=== PATIENT | female | born 1960 | race Caucasian/White ===

== ENCOUNTER 2020-06-17 12:39 | Inpatient (IN) | payer OTHER, SELFPAY ==
[2020-06-19 01:56] VITALS: BMI 63.5
[2020-06-20] VITALS (8 sets, daily range): BP systolic 124–138; BP diastolic 76–87; PULSE 61–83; RESP 18; TEMP 35.9–36.2; O2SAT 95; BMI 77.4; BMI 35.1
[2020-06-20] MEDS: amLODIPine Besylate 5 MG TABLET PO (10:42)
[2020-06-20] MEDS: metFORMIN HCl 500 MG TABLET 1500 MG PO ×2 (10:43→16:14)
[2020-06-20] MEDS: Benztropine Mesylate 1 MG TABLET PO ×2 (10:45→20:49)
[2020-06-20] MEDS: clonazePAM 1 MG TABLET PO ×2 (10:45→20:49)
[2020-06-20] MEDS: NaPROXEN 500 MG TABLET PO ×2 (10:45→16:14)
[2020-06-20] MEDS: Aspirin Enteric Coated 81 MG TABLET.DR PO (10:45)
[2020-06-20] MEDS: Gabapentin 300 MG CAPSULE PO ×2 (10:45→20:49)
[2020-06-20] MEDS: Propranolol HCL 20 MG TABLET PO ×3 (11:04→20:56)
[2020-06-20] MEDS: lisinopriL 10 MG TABLET PO (11:05)
[2020-06-20] MEDS: Fluticasone Propionate 100 MCG BLST.W.DEV 1 PUFF INHALE ×2 (11:20→20:52)
--- NOTE | 2020-06-20 16:22 | HO.PSYCHPN ---
Assessment & Plan Assessment & Plan (1) PTSD (post-traumatic stress disorder): Status: Acute Code(s): F43.10 - Post-traumatic stress disorder, unspecified Assessment and Plan: Continue loxapine Liaise with family Greater than 50% of the session was spent on counseling and/or coordination of care Subjective Subjective Date of Service: 06/20/20 Reason For Visit: Ptsd Subjective Notes: Conditional Voluntary Interim History: Mouna has been calmer and she is no longer having any AH. She states that has been more like her normal self. She has been up and about on the unit and she states that she feels safe. Medication Compliance: Yes Side effects from medications: No Attending Groups: Intermittent Mental Status Exam Mental Status Exam Patient Appearance: Well Grooomed Patient Orientation: Person, Place and Time Level of Consciousness: Awake and Appropriate Patient Behavior: Appropriate, Cooperative, Passive, Anxious and Good Eye Contact Mood Description: Anxious and Sad Affect Description: Calm and Apathetic Patient Cognition Impaired: No Ability to Follow Directions: Good Speech Pattern: Clear and Normal for Patient Memory Description: Intact Hallucinations: Auditory (far less) Delusions: Paranoid Ideation Thought Process: Slowed Thinking Thought Content: Goal Oriented and Preoccupation Depressive Symptoms: Increased Anxiety Judgement: Fair Diagnostics Vital Signs (24Hr): Vital Signs - 24 hr 06/20/20 06:41 06/20/20 10:42 06/20/20 11:04 Temperature 96.6 F L Pulse Rate 61 61 61 Respiratory Rate 18 Blood Pressure 124/76 124/76 124/76 Pulse Oximetry 95 06/20/20 11:05 06/20/20 14:19 Temperature Pulse Rate 61 83 Respiratory Rate Blood Pressure 124/76 132/83 Pulse Oximetry Body Mass Index 35.1 Labs Results: 06/16/20 15:40 06/16/20 15:40 Labs: Laboratory Results - last 48 hr 06/16/20 06/16/20 06/17/20 15:22 15:22 07:13 ESR POC Glucose Estimat Average Glucose Hemoglobin A1c Triglycerides Cholesterol LDL Cholesterol, Calc HDL Cholesterol Vitamin B12 Folate Urine Color Cancelled YELLOW Urine Appearance Cancelled CLEAR Urine pH Cancelled 5.5 Ur Specific [place] Cancelled 1.025 Urine Protein Cancelled NEG Urine Glucose (UA) Cancelled NEG Urine Ketones Cancelled NEG Urine Blood Cancelled NEG Urine Nitrite Cancelled NEG Urine WBC (Auto) Cancelled TRACE H Urine RBC 0-2 Urine WBC 5-9 H Ur Epithelial Cells 1+ Urine Bacteria 1+ Urine Mucus 1+ Urine Opiates Screen Cancelled Ur Barbiturates Screen Cancelled Phencyclidine Screen Cancelled Ur Amphetamines Screen Cancelled U Benzodiazepines Scrn Cancelled Urine Cocaine Screen Cancelled U Cannabinoids Screen Cancelled T.pallidum Ab (EIA) Coronavirus (PCR) 06/17/20 06/17/20 06/17/20 07:27 09:13 16:58 ESR POC Glucose 144 H 118 H Estimat Average Glucose Hemoglobin A1c Triglycerides Cholesterol LDL Cholesterol, Calc HDL Cholesterol Vitamin B12 Folate Urine Color Urine Appearance Urine pH Ur Specific [place] Urine Protein Urine Glucose (UA) Urine Ketones Urine Blood Urine Nitrite Urine WBC (Auto) Urine RBC Urine WBC Ur Epithelial Cells Urine Bacteria Urine Mucus Urine Opiates Screen Ur Barbiturates Screen Phencyclidine Screen Ur Amphetamines Screen U Benzodiazepines Scrn Urine Cocaine Screen U Cannabinoids Screen T.pallidum Ab (EIA) Coronavirus (PCR) NEGATIVE 06/18/20 06/18/20 06/19/20 06:44 16:44 06:50 ESR POC Glucose 116 H 127 H 119 H Estimat Average Glucose Hemoglobin A1c Triglycerides Cholesterol LDL Cholesterol, Calc HDL Cholesterol Vitamin B12 Folate Urine Color Urine Appearance Urine pH Ur Specific [place] Urine Protein Urine Glucose (UA) Urine Ketones Urine Blood Urine Nitrite Urine WBC (Auto) Urine RBC Urine WBC Ur Epithelial Cells Urine Bacteria Urine Mucus Urine Opiates Screen Ur Barbiturates Screen Phencyclidine Screen Ur Amphetamines Screen U Benzodiazepines Scrn Urine Cocaine Screen U Cannabinoids Screen T.pallidum Ab (EIA) Coronavirus (PCR) 06/19/20 06/19/20 06/19/20 07:51 07:51 10:05 ESR POC Glucose Estimat Average Glucose 171 Hemoglobin A1c 7.6 Triglycerides 146 Cholesterol 120 LDL Cholesterol, Calc 59 HDL Cholesterol 32 Vitamin B12 397 Folate 13.7 Urine Color Urine Appearance Urine pH Ur Specific [place] Urine Protein Urine Glucose (UA) Urine Ketones Urine Blood Urine Nitrite Urine WBC (Auto) Urine RBC Urine WBC Ur Epithelial Cells Urine Bacteria Urine Mucus Urine Opiates Screen Ur Barbiturates Screen Phencyclidine Screen Ur Amphetamines Screen U Benzodiazepines Scrn Urine Cocaine Screen U Cannabinoids Screen T.pallidum Ab (EIA) Coronavirus (PCR) 06/19/20 06/19/20 06/19/20 10:05 10:05 16:50 ESR 25 H POC Glucose 147 H Estimat Average Glucose Hemoglobin A1c Triglycerides Cholesterol LDL Cholesterol, Calc HDL Cholesterol Vitamin B12 Folate Urine Color Urine Appearance Urine pH Ur Specific [place] Urine Protein Urine Glucose (UA) Urine Ketones Urine Blood Urine Nitrite Urine WBC (Auto) Urine RBC Urine WBC Ur Epithelial Cells Urine Bacteria Urine Mucus Urine Opiates Screen Ur Barbiturates Screen Phencyclidine Screen Ur Amphetamines Screen U Benzodiazepines Scrn Urine Cocaine Screen U Cannabinoids Screen T.pallidum Ab (EIA) Nonreactive Coronavirus (PCR) Medications Medications Ambulatory Orders Medication Instructions Recorded amlodipine 5 mg PO DAILY 06/19/20 aspirin 81 mg PO DAILY 06/19/20 atorvastatin 10 mg PO BEDTIME 06/19/20 benztropine 1 mg PO BID 06/19/20 clonazepam 0.5 mg PO DAILY PRN MDD 2.5 06/19/20 clonazepam 1 mg PO BID 06/19/20 darifenacin 7.5 mg PO DAILY 06/19/20 fluticasone propionate 1 puff INHALATION BID 06/19/20 gabapentin 300 mg PO BID 06/19/20 lisinopril 10 mg PO DAILY 06/19/20 loxapine succinate 5 mg PO BEDTIME 06/19/20 loxapine succinate 10 mg PO BID 06/19/20 meclizine 25 mg PO DAILY PRN 06/19/20 metformin 1,500 mg PO BIDWM 06/19/20 propranolol 20 mg PO TID 06/19/20 Allergies Allergies Allergy/AdvReac Type Severity Reaction Status Date / Time haloperidol [HALOPERIDOL] Allergy Intermediate SWELLING Unverified 06/06/20 14:55 carbamazepine [From Tegretol] Allergy Mild RASH, Unverified 06/06/20 14:55 TREMORS lithium [[place]] Allergy Mild RASH, Unverified 06/06/20 14:55 CRAWLING OUT OF SKIN olanzapine [From Zyprexa] Allergy Mild RICHARD Unverified 06/06/20 14:55 quetiapine [From Seroquel] Allergy Mild SWELLING Unverified 06/06/20 14:55 WHOLE BODY, RICHARD lisinopril [LISINOPRIL] Allergy Unknown UNKNOWN Unverified 06/06/20 14:55 topiramate [From TOPAMAX] Allergy Unknown RICHARD, SI Unverified 06/06/20 14:55 trazodone [TRAZODONE] Allergy Unknown SYNCOPE Unverified 06/06/20 14:55 aripiprazole [From ABILIFY] AdvReac Severe EXTREME SI Unverified 06/06/20 14:55 lamotrigine [From Lamictal] AdvReac Mild RICHARD Unverified 06/06/20 14:55 modafinil [From Provigil] AdvReac Mild RICHARD Unverified 06/06/20 14:55 ALL ANTI DEPRESSENTS Allergy Unknown I GO Uncoded 06/06/20 14:55 MANIC All anti-depressants Allergy Unknown manic, rash Uncoded 05/02/20 00:00 From GEODON Allergy Unknown LETHARGY Uncoded 06/06/20 14:55 From WELLBUTRIN AdvReac Unknown AGITATION, Uncoded 06/06/20 14:55 MAVIS
--- NOTE | 2020-06-20 16:56 | HO.PSYCHPN ---
Assessment & Plan Assessment & Plan (1) Auditory hallucinations: Status: Acute Code(s): R44.0 - Auditory hallucinations Assessment and Plan: Continue medications without change. Liaise with outpatient providers Greater than 50% of the session was spent on counseling and/or coordination of care Subjective Subjective Date of Service: 06/20/20 Reason For Visit: Ptsd Subjective Notes: Conditional Voluntary and 3 Day Interim History: Stan had submitted a three day notice which today. His parents have communicate to that they are concerned about his impulsivity, his irritability and his anger Diagnostics Vital Signs (24Hr): Vital Signs - 24 hr 06/20/20 06:41 06/20/20 10:42 06/20/20 11:04 Temperature 96.6 F L Pulse Rate 61 61 61 Respiratory Rate 18 Blood Pressure 124/76 124/76 124/76 Pulse Oximetry 95 06/20/20 11:05 06/20/20 14:19 06/20/20 16:51 Temperature 97.1 F Pulse Rate 61 83 77 Respiratory Rate Blood Pressure 124/76 132/83 126/83 Pulse Oximetry 06/20/20 16:52 Temperature 97.1 F Pulse Rate 77 Respiratory Rate Blood Pressure 126/83 Pulse Oximetry Body Mass Index 35.1 Labs Results: 06/16/20 15:40 06/16/20 15:40 Labs: Laboratory Results - last 48 hr 06/16/20 06/16/20 06/17/20 15:22 15:22 07:13 ESR POC Glucose Estimat Average Glucose Hemoglobin A1c Triglycerides Cholesterol LDL Cholesterol, Calc HDL Cholesterol Vitamin B12 Folate Urine Color Cancelled YELLOW Urine Appearance Cancelled CLEAR Urine pH Cancelled 5.5 Ur Specific [place] Cancelled 1.025 Urine Protein Cancelled NEG Urine Glucose (UA) Cancelled NEG Urine Ketones Cancelled NEG Urine Blood Cancelled NEG Urine Nitrite Cancelled NEG Urine WBC (Auto) Cancelled TRACE H Urine RBC 0-2 Urine WBC 5-9 H Ur Epithelial Cells 1+ Urine Bacteria 1+ Urine Mucus 1+ Urine Opiates Screen Cancelled Ur Barbiturates Screen Cancelled Phencyclidine Screen Cancelled Ur Amphetamines Screen Cancelled U Benzodiazepines Scrn Cancelled Urine Cocaine Screen Cancelled U Cannabinoids Screen Cancelled T.pallidum Ab (EIA) Coronavirus (PCR) 06/17/20 06/17/20 06/17/20 07:27 09:13 16:58 ESR POC Glucose 144 H 118 H Estimat Average Glucose Hemoglobin A1c Triglycerides Cholesterol LDL Cholesterol, Calc HDL Cholesterol Vitamin B12 Folate Urine Color Urine Appearance Urine pH Ur Specific [place] Urine Protein Urine Glucose (UA) Urine Ketones Urine Blood Urine Nitrite Urine WBC (Auto) Urine RBC Urine WBC Ur Epithelial Cells Urine Bacteria Urine Mucus Urine Opiates Screen Ur Barbiturates Screen Phencyclidine Screen Ur Amphetamines Screen U Benzodiazepines Scrn Urine Cocaine Screen U Cannabinoids Screen T.pallidum Ab (EIA) Coronavirus (PCR) NEGATIVE 06/18/20 06/18/20 06/19/20 06:44 16:44 06:50 ESR POC Glucose 116 H 127 H 119 H Estimat Average Glucose Hemoglobin A1c Triglycerides Cholesterol LDL Cholesterol, Calc HDL Cholesterol Vitamin B12 Folate Urine Color Urine Appearance Urine pH Ur Specific [place] Urine Protein Urine Glucose (UA) Urine Ketones Urine Blood Urine Nitrite Urine WBC (Auto) Urine RBC Urine WBC Ur Epithelial Cells Urine Bacteria Urine Mucus Urine Opiates Screen Ur Barbiturates Screen Phencyclidine Screen Ur Amphetamines Screen U Benzodiazepines Scrn Urine Cocaine Screen U Cannabinoids Screen T.pallidum Ab (EIA) Coronavirus (PCR) 06/19/20 06/19/20 06/19/20 07:51 07:51 10:05 ESR POC Glucose Estimat Average Glucose 171 Hemoglobin A1c 7.6 Triglycerides 146 Cholesterol 120 LDL Cholesterol, Calc 59 HDL Cholesterol 32 Vitamin B12 397 Folate 13.7 Urine Color Urine Appearance Urine pH Ur Specific [place] Urine Protein Urine Glucose (UA) Urine Ketones Urine Blood Urine Nitrite Urine WBC (Auto) Urine RBC Urine WBC Ur Epithelial Cells Urine Bacteria Urine Mucus Urine Opiates Screen Ur Barbiturates Screen Phencyclidine Screen Ur Amphetamines Screen U Benzodiazepines Scrn Urine Cocaine Screen U Cannabinoids Screen T.pallidum Ab (EIA) Coronavirus (PCR) 06/19/20 06/19/20 06/19/20 10:05 10:05 16:50 ESR 25 H POC Glucose 147 H Estimat Average Glucose Hemoglobin A1c Triglycerides Cholesterol LDL Cholesterol, Calc HDL Cholesterol Vitamin B12 Folate Urine Color Urine Appearance Urine pH Ur Specific [place] Urine Protein Urine Glucose (UA) Urine Ketones Urine Blood Urine Nitrite Urine WBC (Auto) Urine RBC Urine WBC Ur Epithelial Cells Urine Bacteria Urine Mucus Urine Opiates Screen Ur Barbiturates Screen Phencyclidine Screen Ur Amphetamines Screen U Benzodiazepines Scrn Urine Cocaine Screen U Cannabinoids Screen T.pallidum Ab (EIA) Nonreactive Coronavirus (PCR) Medications Medications Ambulatory Orders Medication Instructions Recorded amlodipine 5 mg PO DAILY 06/19/20 aspirin 81 mg PO DAILY 06/19/20 atorvastatin 10 mg PO BEDTIME 06/19/20 benztropine 1 mg PO BID 06/19/20 clonazepam 0.5 mg PO DAILY PRN MDD 2.5 06/19/20 clonazepam 1 mg PO BID 06/19/20 darifenacin 7.5 mg PO DAILY 06/19/20 fluticasone propionate 1 puff INHALATION BID 06/19/20 gabapentin 300 mg PO BID 06/19/20 lisinopril 10 mg PO DAILY 06/19/20 loxapine succinate 5 mg PO BEDTIME 06/19/20 loxapine succinate 10 mg PO BID 06/19/20 meclizine 25 mg PO DAILY PRN 06/19/20 metformin 1,500 mg PO BIDWM 06/19/20 propranolol 20 mg PO TID 06/19/20 Allergies Allergies Allergy/AdvReac Type Severity Reaction Status Date / Time haloperidol [HALOPERIDOL] Allergy Intermediate SWELLING Unverified 06/06/20 14:55 carbamazepine [From Tegretol] Allergy Mild RASH, Unverified 06/06/20 14:55 TREMORS lithium [[place]] Allergy Mild RASH, Unverified 06/06/20 14:55 CRAWLING OUT OF SKIN olanzapine [From Zyprexa] Allergy Mild RICHARD Unverified 06/06/20 14:55 quetiapine [From Seroquel] Allergy Mild SWELLING Unverified 06/06/20 14:55 WHOLE BODY, RICHARD lisinopril [LISINOPRIL] Allergy Unknown UNKNOWN Unverified 06/06/20 14:55 topiramate [From TOPAMAX] Allergy Unknown RICHARD, SI Unverified 06/06/20 14:55 trazodone [TRAZODONE] Allergy Unknown SYNCOPE Unverified 06/06/20 14:55 aripiprazole [From ABILIFY] AdvReac Severe EXTREME SI Unverified 06/06/20 14:55 lamotrigine [From Lamictal] AdvReac Mild RICHARD Unverified 06/06/20 14:55 modafinil [From Provigil] AdvReac Mild RICHARD Unverified 06/06/20 14:55 ALL ANTI DEPRESSENTS Allergy Unknown I GO Uncoded 06/06/20 14:55 MANIC All anti-depressants Allergy Unknown manic, rash Uncoded 05/02/20 00:00 From GEODON Allergy Unknown LETHARGY Uncoded 06/06/20 14:55 From WELLBUTRIN AdvReac Unknown AGITATION, Uncoded 06/06/20 14:55 MAVIS
[2020-06-20 17:53] LABS: Glucose, Whole Blood 139 mg/dL (60-115)
[2020-06-20] MEDS: Atorvastatin Calcium 10 MG TABLET PO (20:49)
[2020-06-21 06:15] VITALS: BP 120/72; PULSE 66; RESP 18; TEMP 35.6; O2SAT 97
[2020-06-21 06:25] LABS: Glucose, Whole Blood 126 mg/dL (60-115)
[2020-06-21] MEDS: Fluticasone Propionate 100 MCG BLST.W.DEV 1 PUFF INHALE ×2 (08:55→20:29)
[2020-06-21] MEDS: Gabapentin 300 MG CAPSULE PO ×2 (08:58→20:28)
[2020-06-21] MEDS: Aspirin Enteric Coated 81 MG TABLET.DR PO (08:58)
[2020-06-21] MEDS: metFORMIN HCl 500 MG TABLET 1500 MG PO ×2 (08:59→20:25)
[2020-06-21] MEDS: NaPROXEN 500 MG TABLET PO ×2 (08:59→20:26)
[2020-06-21] MEDS: clonazePAM 1 MG TABLET PO ×2 (08:59→20:28)
[2020-06-21 09:00] VITALS: BP 120/72; PULSE 66
[2020-06-21] MEDS: lisinopriL 10 MG TABLET PO (09:00)
[2020-06-21] MEDS: amLODIPine Besylate 5 MG TABLET PO (09:00)
[2020-06-21] MEDS: Benztropine Mesylate 1 MG TABLET PO ×2 (09:01→20:27)
[2020-06-21 09:21] VITALS: BP 120/72; PULSE 66
[2020-06-21] MEDS: Propranolol HCL 20 MG TABLET PO ×3 (09:21→20:34)
--- NOTE | 2020-06-21 09:31 | PM.PSYDC ---
DS: Providers Provider Date of admission: 06/17/20 12:39 Primary care physician: Kira Craven MD Attending physician on admission: Jacque Ovalle Attending physician on discharge: Jacque Ovalle DS: Diagnosis Discharge Diagnosis (1) Auditory hallucinations: Status: Acute Discharge Plan Discharge Discharge Medications: No Action amlodipine 5 mg Tablet 5 mg PO DAILY RF: 0 aspirin 81 mg Capsule,Delayed Release(Dr/Ec) 81 mg PO DAILY RF: 0 atorvastatin 10 mg Tablet 10 mg PO BEDTIME RF: 0 benztropine 1 mg Tablet 1 mg PO BID RF: 0 clonazepam 0.5 mg Tablet 0.5 mg PO DAILY MDD 2.5 PRN (Reason: Anxiety) RF: 0 clonazepam 1 mg Tablet 1 mg PO BID RF: 0 fluticasone propionate 110 mcg/actuation Hfa Aerosol Inhaler 1 puff INHALATION BID RF: 0 gabapentin 300 mg Capsule 300 mg PO BID RF: 0 lisinopril 10 mg Tablet 10 mg PO DAILY RF: 0 meclizine 25 mg Tablet 25 mg PO DAILY PRN (Reason: Dizziness) RF: 0 metformin 1,000 mg Tablet 1,500 mg PO BIDWM RF: 0 loxapine succinate 5 mg Capsule 5 mg PO BEDTIME RF: 0 loxapine succinate 10 mg Capsule 10 mg PO BID RF: 0 propranolol 20 mg Tablet 20 mg PO TID RF: 0 darifenacin 7.5 mg Tablet Extended Release 24 Hr 7.5 mg PO DAILY RF: 0
[2020-06-21 11:55] LABS: Creatinine Clr Calc Pharmacy 81.7; Estimated Glomerular Filt Rate > 60
--- NOTE | 2020-06-21 13:19 | PC.NURSE ---
Pt participated on [facility] screen on this date, scored 08/19, indicating cognition is below normal limits, indicative of dementia.
[2020-06-21 13:38] VITALS: BP 123/70; PULSE 76
[2020-06-21 17:14] LABS: Glucose, Whole Blood 149 mg/dL (60-115)
[2020-06-21 18:00] VITALS: BP 141/79; PULSE 79; TEMP 36.6
--- NOTE | 2020-06-21 18:49 | P.PNPSI_ITS ---
Assessment & Plan Assessment & Plan (1) Auditory hallucinations: Status: Acute Code(s): R44.0 - Auditory hallucinations Assessment and Plan: Continue loxapine (2) Cognitive impairment: Status: Acute Code(s): R41.89 - Other symptoms and signs involving cognitive functions and awareness Assessment and Plan: MRI of brain Neurology consult Greater than 50% of the session was spent on counseling and/or coordination of care Patient educated on: diagnosis and medication risk/benefits Informed Consent: does not understand Reason for contiued inpatient stay Substantial Risk for: inability to function and rapid decompensation Subjective Subjective Date of Service: 06/21/20 Reason For Visit: Ptsd Subjective Notes: Conditional Voluntary Interim History: Mouna has been calm and cooperative. She does appear to be somewhat confused, and indeed she scored 11/[address] Her [address] scan of the head was WNL, but will get MRI and neurology consult. She is taking medications as prescribed. Medication Compliance: Yes Side effects from medications: No Attending Groups: Yes Review of Systems Acute medical concerns: No Medical Review of Systems: unchanged Mental Status Exam Mental Status Exam Patient Appearance: Disheveled Patient Orientation: Person and Place Level of Consciousness: Appropriate Patient Behavior: Dependent, Normal for Patient, Suspicious and Distractible Mood Description: Apathetic and Flat Affect Description: Flat Patient Cognition Impaired: No Ability to Follow Directions: Fair Speech Pattern: Monotone, Rambling and Cofabulation Memory Description: Remote Impaired, Immediate Impaired and Working Impaired Hallucinations: Auditory Delusions: Not Present Thought Process: Illogical, Distracted and Slowed Thinking Thought Content: positive for Disoriented and positive for Poverty of Content Depressive Symptoms: Increased Anxiety Judgement: Poor Judgement and Insight: Little awareness of her impairments Diagnostics Vital Signs (24Hr): Vital Signs - 24 hr 06/20/20 20:56 06/21/20 06:15 06/21/20 09:00 Temperature 96.1 F L Pulse Rate 75 66 66 Respiratory Rate 18 Blood Pressure 138/87 120/72 120/72 Pulse Oximetry 97 06/21/20 09:21 06/21/20 13:38 Temperature Pulse Rate 66 76 Respiratory Rate Blood Pressure 120/72 123/70 Pulse Oximetry Body Mass Index 35.1 Labs Results: 06/16/20 15:40 06/21/20 10:43 Labs: Laboratory Results - last 48 hr 06/16/20 06/16/20 06/17/20 15:22 15:22 07:13 ESR Creatinine Estim Creat Clear Calc Estimated GFR POC Glucose Estimat Average Glucose Hemoglobin A1c Triglycerides Cholesterol LDL Cholesterol, Calc HDL Cholesterol Vitamin B12 Folate Urine Color Cancelled YELLOW Urine Appearance Cancelled CLEAR Urine pH Cancelled 5.5 Ur Specific [place] Cancelled 1.025 Urine Protein Cancelled NEG Urine Glucose (UA) Cancelled NEG Urine Ketones Cancelled NEG Urine Blood Cancelled NEG Urine Nitrite Cancelled NEG Urine WBC (Auto) Cancelled TRACE H Urine RBC 0-2 Urine WBC 5-9 H Ur Epithelial Cells 1+ Urine Bacteria 1+ Urine Mucus 1+ Urine Opiates Screen Cancelled Ur Barbiturates Screen Cancelled Phencyclidine Screen Cancelled Ur Amphetamines Screen Cancelled U Benzodiazepines Scrn Cancelled Urine Cocaine Screen Cancelled U Cannabinoids Screen Cancelled T.pallidum Ab (EIA) Coronavirus (PCR) 06/17/20 06/17/20 06/17/20 07:27 09:13 16:58 ESR Creatinine Estim Creat Clear Calc Estimated GFR POC Glucose 144 H 118 H Estimat Average Glucose Hemoglobin A1c Triglycerides Cholesterol LDL Cholesterol, Calc HDL Cholesterol Vitamin B12 Folate Urine Color Urine Appearance Urine pH Ur Specific [place] Urine Protein Urine Glucose (UA) Urine Ketones Urine Blood Urine Nitrite Urine WBC (Auto) Urine RBC Urine WBC Ur Epithelial Cells Urine Bacteria Urine Mucus Urine Opiates Screen Ur Barbiturates Screen Phencyclidine Screen Ur Amphetamines Screen U Benzodiazepines Scrn Urine Cocaine Screen U Cannabinoids Screen T.pallidum Ab (EIA) Coronavirus (PCR) NEGATIVE 06/18/20 06/18/20 06/19/20 06:44 16:44 06:50 ESR Creatinine Estim Creat Clear Calc Estimated GFR POC Glucose 116 H 127 H 119 H Estimat Average Glucose Hemoglobin A1c Triglycerides Cholesterol LDL Cholesterol, Calc HDL Cholesterol Vitamin B12 Folate Urine Color Urine Appearance Urine pH Ur Specific [place] Urine Protein Urine Glucose (UA) Urine Ketones Urine Blood Urine Nitrite Urine WBC (Auto) Urine RBC Urine WBC Ur Epithelial Cells Urine Bacteria Urine Mucus Urine Opiates Screen Ur Barbiturates Screen Phencyclidine Screen Ur Amphetamines Screen U Benzodiazepines Scrn Urine Cocaine Screen U Cannabinoids Screen T.pallidum Ab (EIA) Coronavirus (PCR) 06/19/20 06/19/20 06/19/20 07:51 07:51 10:05 ESR Creatinine Estim Creat Clear Calc Estimated GFR POC Glucose Estimat Average Glucose 171 Hemoglobin A1c 7.6 Triglycerides 146 Cholesterol 120 LDL Cholesterol, Calc 59 HDL Cholesterol 32 Vitamin B12 397 Folate 13.7 Urine Color Urine Appearance Urine pH Ur Specific [place] Urine Protein Urine Glucose (UA) Urine Ketones Urine Blood Urine Nitrite Urine WBC (Auto) Urine RBC Urine WBC Ur Epithelial Cells Urine Bacteria Urine Mucus Urine Opiates Screen Ur Barbiturates Screen Phencyclidine Screen Ur Amphetamines Screen U Benzodiazepines Scrn Urine Cocaine Screen U Cannabinoids Screen T.pallidum Ab (EIA) Coronavirus (PCR) 06/19/20 06/19/20 06/19/20 10:05 10:05 16:50 ESR 25 H Creatinine Estim Creat Clear Calc Estimated GFR POC Glucose 147 H Estimat Average Glucose Hemoglobin A1c Triglycerides Cholesterol LDL Cholesterol, Calc HDL Cholesterol Vitamin B12 Folate Urine Color Urine Appearance Urine pH Ur Specific [place] Urine Protein Urine Glucose (UA) Urine Ketones Urine Blood Urine Nitrite Urine WBC (Auto) Urine RBC Urine WBC Ur Epithelial Cells Urine Bacteria Urine Mucus Urine Opiates Screen Ur Barbiturates Screen Phencyclidine Screen Ur Amphetamines Screen U Benzodiazepines Scrn Urine Cocaine Screen U Cannabinoids Screen T.pallidum Ab (EIA) Nonreactive Coronavirus (PCR) 06/20/20 06/21/20 06/21/20 17:49 06:21 10:43 ESR Creatinine 0.75 Estim Creat Clear Calc 81.7 Estimated GFR > 60 POC Glucose 139 H 126 H Estimat Average Glucose Hemoglobin A1c Triglycerides Cholesterol LDL Cholesterol, Calc HDL Cholesterol Vitamin B12 Folate Urine Color Urine Appearance Urine pH Ur Specific [place] Urine Protein Urine Glucose (UA) Urine Ketones Urine Blood Urine Nitrite Urine WBC (Auto) Urine RBC Urine WBC Ur Epithelial Cells Urine Bacteria Urine Mucus Urine Opiates Screen Ur Barbiturates Screen Phencyclidine Screen Ur Amphetamines Screen U Benzodiazepines Scrn Urine Cocaine Screen U Cannabinoids Screen T.pallidum Ab (EIA) Coronavirus (PCR) 06/21/20 17:03 ESR Creatinine Estim Creat Clear Calc Estimated GFR POC Glucose 149 H Estimat Average Glucose Hemoglobin A1c Triglycerides Cholesterol LDL Cholesterol, Calc HDL Cholesterol Vitamin B12 Folate Urine Color Urine Appearance Urine pH Ur Specific [place] Urine Protein Urine Glucose (UA) Urine Ketones Urine Blood Urine Nitrite Urine WBC (Auto) Urine RBC Urine WBC Ur Epithelial Cells Urine Bacteria Urine Mucus Urine Opiates Screen Ur Barbiturates Screen Phencyclidine Screen Ur Amphetamines Screen U Benzodiazepines Scrn Urine Cocaine Screen U Cannabinoids Screen T.pallidum Ab (EIA) Coronavirus (PCR) Medications Medications Current Medications Generic Name Dose Route Start Last Admin Trade Name Freq PRN Reason Stop Dose Admin Acetaminophen 650 mg 06/20/20 00:01 Acetaminophen 325 Mg Tablet PO Q6H PRN HEADACHE/PAIN.MILD (SCALE 1-3) Al Hydroxide/Mg Hydroxide 30 ml 06/20/20 00:01 Magnesium Hydrox/Alum Hydrox 30 Ml Oral.Susp PO Q6H PRN HEARTBURN/NAUSEA Amlodipine Besylate 5 mg 06/20/20 09:00 06/21/20 09:00 Amlodipine Besylate 5 Mg Tablet PO 5 mg DAILY TARYN Administration Aspirin 81 mg 06/20/20 09:00 06/21/20 08:58 Aspirin Enteric Coated 81 Mg Tablet.Dr PO 81 mg DAILY TARYN Administration Atorvastatin Calcium 10 mg 06/20/20 21:00 06/20/20 20:49 Atorvastatin Calcium 10 Mg Tablet PO 10 mg BEDTIME TARYN Administration Benztropine Mesylate 1 mg 06/20/20 08:30 06/21/20 09:01 Benztropine Mesylate 1 Mg Tablet PO 1 mg BID@0830,2099 TARYN Administration Clonazepam 1 mg 06/20/20 08:30 06/21/20 08:59 Clonazepam 1 Mg Tablet PO 1 mg BID@0830,2100 TARYN Administration Clonazepam 0.5 mg 06/20/20 00:01 Clonazepam 0.5 Mg Tablet PO DAILY PRN Anxiety Fluticasone Propionate 1 puff 06/20/20 08:00 06/21/20 08:55 Fluticasone Propionate 100 Mcg Blst.W.Dev INHALE 1 puff RBID TARYN Administration Gabapentin 300 mg 06/20/20 08:30 06/21/20 08:58 Gabapentin 300 Mg Capsule PO 300 mg BID@0830,2100 TARYN Administration Hydroxyzine HCl 25 mg 06/20/20 21:00 Hydroxyzine Hcl 25 Mg Tablet PO BEDTIME MRX1 PRN NIGHT TIME ANXIETY Lisinopril 10 mg 06/20/20 09:00 06/21/20 09:00 Lisinopril 10 Mg Tablet PO 10 mg DAILY TARYN Administration Magnesium Hydroxide 30 ml 06/20/20 00:01 Milk Of Magnesia 30 Ml Oral.Susp PO Q24H PRN Constipation Meclizine HCl 25 mg 10/01/20 00:01 Meclizine Hcl 25 Mg Tablet PO DAILY PRN DIZZINESS Metformin HCl 1,500 mg 06/20/20 08:00 06/21/20 08:59 Metformin Hcl 500 Mg Tablet PO 1,500 mg BIDWM TARYN Administration Naproxen 500 mg 06/20/20 08:00 06/21/20 08:59 Naproxen 500 Mg Tablet PO 500 mg BIDWM TARYN Administration Patient Own 1 each 06/20/20 09:00 06/21/20 08:57 Medication ( PO 1 each Loxapine 10 Mg ) BID TARYN Administration Patient Own 1 each 06/20/20 21:00 06/20/20 20:51 Medication ( PO 1 each Loxapine 5 Mg) BEDTIME TARYN Administration Patient Own 1 each 06/20/20 09:00 06/21/20 08:58 Medication ( PO 1 each Darifenacin Er 7.5 DAILY TARYN Administration Mg ) Propranolol HCl 20 mg 06/21/20 13:30 06/21/20 13:38 Propranolol Hcl 20 Mg Tablet PO 20 mg TID@0830,1330,2100 TARYN Administration Allergies Allergies Allergy/AdvReac Type Severity Reaction Status Date / Time haloperidol [HALOPERIDOL] Allergy Intermediate SWELLING Unverified 06/06/20 14:55 carbamazepine [From Tegretol] Allergy Mild RASH, Unverified 06/06/20 14:55 TREMORS lithium [[place]] Allergy Mild RASH, Unverified 06/06/20 14:55 CRAWLING OUT OF SKIN olanzapine [From Zyprexa] Allergy Mild RICHARD Unverified 06/06/20 14:55 quetiapine [From Seroquel] Allergy Mild SWELLING Unverified 06/06/20 14:55 WHOLE BODY, RICHARD lisinopril [LISINOPRIL] Allergy Unknown UNKNOWN Unverified 06/06/20 14:55 topiramate [From TOPAMAX] Allergy Unknown RICHARD, SI Unverified 06/06/20 14:55 trazodone [TRAZODONE] Allergy Unknown SYNCOPE Unverified 06/06/20 14:55 aripiprazole [From ABILIFY] AdvReac Severe EXTREME SI Unverified 06/06/20 14:55 lamotrigine [From Lamictal] AdvReac Mild RICHARD Unverified 06/06/20 14:55 modafinil [From Provigil] AdvReac Mild RICHARD Unverified 06/06/20 14:55 ALL ANTI DEPRESSENTS Allergy Unknown I GO Uncoded 06/06/20 14:55 MANIC All anti-depressants Allergy Unknown manic, rash Uncoded 05/02/20 00:00 From GEODON Allergy Unknown LETHARGY Uncoded 06/06/20 14:55 From WELLBUTRIN AdvReac Unknown AGITATION, Uncoded 06/06/20 14:55 MAVIS
--- NOTE | 2020-06-21 19:47 | MR_ITS ---
MRI OF THE BRAIN WITHOUT IV CONTRAST INDICATION: Cognitive decline. COMPARISON: Head CT 06/16/2020. TECHNIQUE: Multiplanar multisequence MR imaging of the brain was obtained without IV contrast. FINDINGS: There is no hydrocephalus, extra-axial surface collection, or herniation. There is mild chronic microangiopathy. The major flow voids at the skull base are preserved. There is no acute infarct on diffusion-weighted imaging. There is no intracranial hemorrhage on the gradient recalled echo acquisition. The midline structures are normal. The cerebellar tonsils are normally positioned. The cerebellum and brainstem are normal. The craniocervical junction is normal. Osseous marrow signal intensity is homogenous. The visualized soft tissues are unremarkable. IMPRESSION: - No acute intracranial findings. - There is global cerebral volume loss and there is mild chronic microangiopathy.
[2020-06-21] MEDS: Atorvastatin Calcium 10 MG TABLET PO (20:27)
[2020-06-21 20:34] VITALS: BP 141/79; PULSE 73
[2020-06-22] VITALS (7 sets, daily range): BP systolic 123–137; BP diastolic 70–88; PULSE 62–91; RESP 16; TEMP 36.3–36.6
[2020-06-22 06:41] LABS: Glucose, Whole Blood 100 mg/dL (60-115)
[2020-06-22] MEDS: Gabapentin 300 MG CAPSULE PO ×2 (08:35→20:56)
[2020-06-22] MEDS: metFORMIN HCl 500 MG TABLET 1500 MG PO ×2 (08:35→17:13)
[2020-06-22] MEDS: amLODIPine Besylate 5 MG TABLET PO (08:36)
[2020-06-22] MEDS: Benztropine Mesylate 1 MG TABLET PO (08:36)
[2020-06-22] MEDS: Aspirin Enteric Coated 81 MG TABLET.DR PO (08:36)
[2020-06-22] MEDS: clonazePAM 1 MG TABLET PO (08:37)
[2020-06-22] MEDS: lisinopriL 10 MG TABLET PO (08:38)
[2020-06-22] MEDS: NaPROXEN 500 MG TABLET PO ×2 (08:47→17:13)
[2020-06-22] MEDS: Fluticasone Propionate 100 MCG BLST.W.DEV 1 PUFF INHALE ×2 (08:50→20:54)
[2020-06-22] MEDS: Propranolol HCL 20 MG TABLET PO ×3 (09:11→21:24)
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
[2020-06-22 17:14] LABS: Glucose, Whole Blood 158 mg/dL (60-115)
[2020-06-22] MEDS: Atorvastatin Calcium 10 MG TABLET PO (20:56)
[2020-06-22] MEDS: Benztropine Mesylate 1 MG TABLET 0.5 MG PO (20:57)
[2020-06-22] MEDS: clonazePAM 1 MG TABLET 0.5 MG PO (21:00)
[2020-06-22] MEDS: clonazePAM 0.5 MG TABLET PO (21:25)
[2020-06-22 23:06] LABS: Glucose, Whole Blood 151 mg/dL (60-115)
[2020-06-23 06:00] VITALS: BP 135/73; PULSE 63; RESP 18; TEMP 35.6; O2SAT 95
[2020-06-23 06:32] LABS: Glucose, Whole Blood 142 mg/dL (60-115)
[2020-06-23 09:18] VITALS: BP 135/73; PULSE 63
[2020-06-23] MEDS: amLODIPine Besylate 5 MG TABLET PO (09:18)
[2020-06-23] MEDS: Gabapentin 300 MG CAPSULE PO ×2 (09:18→20:44)
[2020-06-23] MEDS: lisinopriL 10 MG TABLET PO (09:18)
[2020-06-23] MEDS: metFORMIN HCl 500 MG TABLET 1500 MG PO ×2 (09:18→17:12)
[2020-06-23] MEDS: Benztropine Mesylate 1 MG TABLET 0.5 MG PO ×2 (09:18→20:43)
[2020-06-23 09:19] VITALS: BP 135/73; PULSE 63
[2020-06-23] MEDS: Propranolol HCL 20 MG TABLET PO ×3 (09:19→21:02)
[2020-06-23] MEDS: NaPROXEN 500 MG TABLET PO ×2 (09:19→17:12)
[2020-06-23] MEDS: clonazePAM 0.5 MG TABLET PO ×3 (09:19→20:44)
[2020-06-23] MEDS: Aspirin Enteric Coated 81 MG TABLET.DR PO (09:20)
[2020-06-23] MEDS: Fluticasone Propionate 100 MCG BLST.W.DEV 1 PUFF INHALE ×2 (09:20→20:43)
--- NOTE | 2020-06-23 12:30 | HO.PSYCHPN ---
Assessment & Plan Assessment & Plan (1) Cognitive impairment: Status: Acute Code(s): R41.89 - Other symptoms and signs involving cognitive functions and awareness (2) PTSD (post-traumatic stress disorder): Status: Acute Code(s): F43.10 - Post-traumatic stress disorder, unspecified Greater than 50% of the session was spent on counseling and/or coordination of care Subjective Subjective Date of Service: 06/23/20 Reason For Visit: Ptsd Subjective Notes: Conditional Voluntary Interim History: Pt reporting good day, no complaints, told nurse pain continues confused as she came up to me later- saying I am going home today when told no she told me I told her that- Medication Compliance: Yes Side effects from medications: No Attending Groups: Intermittent Review of Systems Acute medical concerns: No Medical Review of Systems: unchanged Mental Status Exam Mental Status Exam Patient Appearance: Well Grooomed Patient Orientation: Person Level of Consciousness: Awake and Alert Patient Behavior: Appropriate and Cooperative Mood Description: Calm Affect Description: Calm Patient Cognition Impaired: Yes Ability to Follow Directions: Fair Speech Pattern: Clear Hallucinations: None Thought Process: Confusion Thought Content: positive for [place] Judgement: Poor Diagnostics Vital Signs (24Hr): Vital Signs - 24 hr 06/22/20 13:39 06/22/20 16:44 06/22/20 21:24 Temperature 97.4 F Pulse Rate 81 77 91 Respiratory Rate Blood Pressure 134/77 123/70 137/88 Pulse Oximetry 06/23/20 06:00 06/23/20 09:18 06/23/20 09:19 Temperature 96.1 F L Pulse Rate 63 63 63 Respiratory Rate 18 Blood Pressure 135/73 135/73 135/73 Pulse Oximetry 95 Body Mass Index 35.1 Labs Results: 06/16/20 15:40 06/21/20 10:43 Labs: Laboratory Results - last 48 hr 06/21/20 06/22/20 06/22/20 17:03 06:33 17:08 POC Glucose 149 H 100 158 H 06/22/20 06/23/20 23:02 06:22 POC Glucose 151 H 142 H Medications Medications Current Medications Generic Name Dose Route Start Last Admin Trade Name Freq PRN Reason Stop Dose Admin Acetaminophen 650 mg 06/20/20 00:01 Acetaminophen 325 Mg Tablet PO Q6H PRN HEADACHE/PAIN.MILD (SCALE 1-3) Al Hydroxide/Mg Hydroxide 30 ml 06/20/20 00:01 Magnesium Hydrox/Alum Hydrox 30 Ml Oral.Susp PO Q6H PRN HEARTBURN/NAUSEA Amlodipine Besylate 5 mg 06/20/20 09:00 06/23/20 09:18 Amlodipine Besylate 5 Mg Tablet PO 5 mg DAILY TARYN Administration Aspirin 81 mg 06/20/20 09:00 06/23/20 09:20 Aspirin Enteric Coated 81 Mg Tablet.Dr PO 81 mg DAILY TARYN Administration Atorvastatin Calcium 10 mg 06/20/20 21:00 06/22/20 20:56 Atorvastatin Calcium 10 Mg Tablet PO 10 mg BEDTIME TARYN Administration Benztropine Mesylate 0.5 mg 06/22/20 21:00 06/23/20 09:18 Benztropine Mesylate 1 Mg Tablet PO 0.5 mg BID@0830,2100 TARYN Administration Clonazepam 0.5 mg 06/20/20 00:01 Clonazepam 0.5 Mg Tablet PO DAILY PRN Anxiety Clonazepam 0.5 mg 06/22/20 21:00 06/23/20 09:19 Clonazepam 0.5 Mg Tablet PO 0.5 mg TID TARYN Administration Fluticasone Propionate 1 puff 06/20/20 08:00 06/23/20 09:20 Fluticasone Propionate 100 Mcg Blst.W.Dev INHALE 1 puff RBID TARYN Administration Gabapentin 300 mg 06/20/20 08:30 06/23/20 09:18 Gabapentin 300 Mg Capsule PO 300 mg BID@0830,2100 TARYN Administration Hydroxyzine HCl 25 mg 06/20/20 21:00 Hydroxyzine Hcl 25 Mg Tablet PO BEDTIME MRX1 PRN NIGHT TIME ANXIETY Lisinopril 10 mg 06/20/20 09:00 06/23/20 09:18 Lisinopril 10 Mg Tablet PO 10 mg DAILY TARYN Administration Magnesium Hydroxide 30 ml 06/20/20 00:01 Milk Of Magnesia 30 Ml Oral.Susp PO Q24H PRN Constipation Meclizine HCl 25 mg 06/20/20 00:01 Meclizine Hcl 25 Mg Tablet PO DAILY PRN DIZZINESS Metformin HCl 1,500 mg 06/20/20 08:00 06/23/20 09:18 Metformin Hcl 500 Mg Tablet PO 1,500 mg BIDWM TARYN Administration Naproxen 500 mg 06/20/20 08:00 06/23/20 09:19 Naproxen 500 Mg Tablet PO 500 mg BIDWM TARYN Administration Patient Own 1 each 06/20/20 09:00 06/23/20 09:21 Medication ( PO 1 each Loxapine 10 Mg ) BID TARYN Administration Patient Own 1 each 06/20/20 21:00 06/22/20 20:56 Medication ( PO 1 each Loxapine 5 Mg) BEDTIME TARYN Administration Patient Own 1 each 06/20/20 09:00 06/23/20 09:20 Medication ( PO 1 each Darifenacin Er 7.5 DAILY TARYN Administration Mg ) Propranolol HCl 20 mg 06/21/20 13:30 06/23/20 09:19 Propranolol Hcl 20 Mg Tablet PO 20 mg TID@0830,1330,2100 TARYN Administration Allergies Allergies Allergy/AdvReac Type Severity Reaction Status Date / Time haloperidol [HALOPERIDOL] Allergy Intermediate SWELLING Unverified 06/06/20 14:55 carbamazepine [From Tegretol] Allergy Mild RASH, Unverified 06/06/20 14:55 TREMORS lithium [[place]] Allergy Mild RASH, Unverified 06/06/20 14:55 CRAWLING OUT OF SKIN olanzapine [From Zyprexa] Allergy Mild RICHARD Unverified 06/06/20 14:55 quetiapine [From Seroquel] Allergy Mild SWELLING Unverified 06/06/20 14:55 WHOLE BODY, RICHARD lisinopril [LISINOPRIL] Allergy Unknown UNKNOWN Unverified 06/06/20 14:55 topiramate [From TOPAMAX] Allergy Unknown RICHARD, SI Unverified 06/06/20 14:55 trazodone [TRAZODONE] Allergy Unknown SYNCOPE Unverified 06/06/20 14:55 aripiprazole [From ABILIFY] AdvReac Severe EXTREME SI Unverified 06/06/20 14:55 lamotrigine [From Lamictal] AdvReac Mild RICHARD Unverified 06/06/20 14:55 modafinil [From Provigil] AdvReac Mild RICHARD Unverified 06/06/20 14:55 ALL ANTI DEPRESSENTS Allergy Unknown I GO Uncoded 06/06/20 14:55 MANIC All anti-depressants Allergy Unknown manic, rash Uncoded 05/02/20 00:00 From GEODON Allergy Unknown LETHARGY Uncoded 06/06/20 14:55 From WELLBUTRIN AdvReac Unknown AGITATION, Uncoded 06/06/20 14:55 MAVIS
[2020-06-23 14:20] VITALS: BP 141/80; PULSE 71
[2020-06-23 16:22] VITALS: BP 137/78; PULSE 75; TEMP 36.1
[2020-06-23 17:23] LABS: Glucose, Whole Blood 148 mg/dL (60-115)
[2020-06-23] MEDS: Atorvastatin Calcium 10 MG TABLET PO (20:44)
[2020-06-23 21:02] VITALS: BP 168/78; PULSE 69
[2020-06-23 22:21] LABS: Glucose, Whole Blood 114 mg/dL (60-115)
[2020-06-24] VITALS (7 sets, daily range): BP systolic 119–138; BP diastolic 57–90; PULSE 57–72; RESP 18; TEMP 36.3–36.4
[2020-06-24 06:31] LABS: Glucose, Whole Blood 102 mg/dL (60-115)
[2020-06-24] MEDS: Aspirin Enteric Coated 81 MG TABLET.DR PO (09:17)
[2020-06-24] MEDS: lisinopriL 10 MG TABLET PO (09:18)
[2020-06-24] MEDS: Benztropine Mesylate 1 MG TABLET 0.5 MG PO ×2 (09:18→22:03)
[2020-06-24] MEDS: Gabapentin 300 MG CAPSULE PO ×2 (09:18→22:03)
[2020-06-24] MEDS: amLODIPine Besylate 5 MG TABLET PO (09:19)
[2020-06-24] MEDS: metFORMIN HCl 500 MG TABLET 1500 MG PO ×2 (09:20→17:17)
[2020-06-24] MEDS: Fluticasone Propionate 100 MCG BLST.W.DEV 1 PUFF INHALE ×2 (09:21→22:11)
[2020-06-24] MEDS: NaPROXEN 500 MG TABLET PO ×2 (09:21→17:16)
[2020-06-24] MEDS: Propranolol HCL 20 MG TABLET PO ×3 (09:23→22:09)
[2020-06-24] MEDS: clonazePAM 0.5 MG TABLET PO ×3 (09:24→22:05)
[2020-06-24 12:57] LABS: Creatinine Clr Calc Pharmacy 87.6; Estimated Glomerular Filt Rate > 60
[2020-06-24 17:10] LABS: Glucose, Whole Blood 143 mg/dL (60-115)
--- NOTE | 2020-06-24 18:49 | HO.PSYCHPN ---
Assessment & Plan Assessment & Plan (1) Auditory hallucinations: Status: Acute Code(s): R44.0 - Auditory hallucinations Assessment and Plan: could be due to dementia, though these are resolving (2) Cognitive impairment: Status: Acute Code(s): R41.89 - Other symptoms and signs involving cognitive functions and awareness Assessment and Plan: having neuro work up Greater than 50% of the session was spent on counseling and/or coordination of care Patient educated on: diagnosis and medication risk/benefits Informed Consent: does not understand Reason for contiued inpatient stay Substantial Risk for: rapid decompensation Subjective Subjective Date of Service: 06/24/20 Reason For Visit: Ptsd Subjective Notes: Conditional Voluntary Interim History: Mouna has been feeling her normal self according to her report. She does admit that she has been noticing a decline in her memory over the last several weeks. She was not aware that she had performed poorly in the [facility]. She understood the need to see a neurologist. MRI showed cerebral atrophy and microangiopathy. Medication Compliance: Yes Side effects from medications: No Attending Groups: Yes Review of Systems Acute medical concerns: No Medical Review of Systems: unchanged Mental Status Exam Mental Status Exam Patient Appearance: Well Grooomed Patient Orientation: Person and Place Level of Consciousness: Appropriate Patient Behavior: Appropriate, Normal for Patient and Cooperative Mood Description: Calm Affect Description: Flat Patient Cognition Impaired: Yes Ability to Follow Directions: Fair Speech Pattern: Clear and Normal for Patient Memory Description: Remote Impaired and Immediate Impaired Hallucinations: Auditory (Much less, by patient report) Delusions: Not Present Thought Content: positive for Suicidal Ideation (No) and positive for Homicidal Ideation (No) Judgement: Fair Judgement and Insight: Impaired and with poor insight into her cognitive status Diagnostics Vital Signs (24Hr): Vital Signs - 24 hr 06/23/20 21:02 06/24/20 06:50 06/24/20 09:18 Temperature 97.6 F Pulse Rate 69 60 60 Respiratory Rate 18 Blood Pressure 168/78 H 119/57 L 119/57 L 06/24/20 09:19 06/24/20 09:23 06/24/20 13:44 Temperature Pulse Rate 57 60 72 Respiratory Rate Blood Pressure 119/57 L 119/57 L Body Mass Index 35.1 Labs Results: 06/16/20 15:40 06/24/20 12:22 Labs: Laboratory Results - last 48 hr 06/22/20 06/23/20 06/23/20 23:02 06:22 17:20 Creatinine Estim Creat Clear Calc Estimated GFR POC Glucose 151 H 142 H 148 H 06/23/20 06/24/20 06/24/20 22:17 06:27 12:22 Creatinine 0.70 Estim Creat Clear Calc 87.6 Estimated GFR > 60 POC Glucose 114 102 06/24/20 17:01 Creatinine Estim Creat Clear Calc Estimated GFR POC Glucose 143 H Medications Medications Current Medications Generic Name Dose Route Start Last Admin Trade Name Freq PRN Reason Stop Dose Admin Acetaminophen 650 mg 06/20/20 00:01 Acetaminophen 325 Mg Tablet PO Q6H PRN HEADACHE/PAIN.MILD (SCALE 1-3) Al Hydroxide/Mg Hydroxide 30 ml 06/20/20 00:01 Magnesium Hydrox/Alum Hydrox 30 Ml Oral.Susp PO Q6H PRN HEARTBURN/NAUSEA Amlodipine Besylate 5 mg 06/20/20 09:00 06/24/20 09:19 Amlodipine Besylate 5 Mg Tablet PO 5 mg DAILY TARYN Administration Aspirin 81 mg 06/20/20 09:00 06/24/20 09:17 Aspirin Enteric Coated 81 Mg Tablet.Dr PO 81 mg DAILY TARYN Administration Atorvastatin Calcium 10 mg 06/20/20 21:00 06/23/20 20:44 Atorvastatin Calcium 10 Mg Tablet PO 10 mg BEDTIME TARYN Administration Benztropine Mesylate 0.5 mg 06/22/20 21:00 06/24/20 09:18 Benztropine Mesylate 1 Mg Tablet PO 0.5 mg BID@0830,2100 TARYN Administration Clonazepam 0.5 mg 06/20/20 00:01 Clonazepam 0.5 Mg Tablet PO DAILY PRN Anxiety Clonazepam 0.5 mg 06/22/20 21:00 06/24/20 14:51 Clonazepam 0.5 Mg Tablet PO 0.5 mg TID TARYN Administration Fluticasone Propionate 1 puff 06/20/20 08:00 06/24/20 09:21 Fluticasone Propionate 100 Mcg Blst.W.Dev INHALE 1 puff RBID TARYN Administration Gabapentin 300 mg 06/20/20 08:30 06/24/20 09:18 Gabapentin 300 Mg Capsule PO 300 mg BID@0830,2100 TARYN Administration Hydroxyzine HCl 25 mg 06/20/20 21:00 Hydroxyzine Hcl 25 Mg Tablet PO BEDTIME MRX1 PRN NIGHT TIME ANXIETY Lisinopril 10 mg 06/20/20 09:00 06/24/20 09:18 Lisinopril 10 Mg Tablet PO 10 mg DAILY TARYN Administration Magnesium Hydroxide 30 ml 06/20/20 00:01 Milk Of Magnesia 30 Ml Oral.Susp PO Q24H PRN Constipation Meclizine HCl 25 mg 06/20/20 00:01 Meclizine Hcl 25 Mg Tablet PO DAILY PRN DIZZINESS Metformin HCl 1,500 mg 06/20/20 08:00 06/24/20 17:17 Metformin Hcl 500 Mg Tablet PO 1,500 mg BIDWM TARYN Administration Naproxen 500 mg 06/20/20 08:00 06/24/20 17:16 Naproxen 500 Mg Tablet PO 500 mg BIDWM TARYN Administration Patient Own 1 each 06/20/20 09:00 06/24/20 09:26 Medication ( PO 1 each Loxapine 10 Mg ) BID TARYN Administration Patient Own 1 each 06/20/20 21:00 06/23/20 20:45 Medication ( PO 1 each Loxapine 5 Mg) BEDTIME TAYRN Administration Patient Own 1 each 06/20/20 09:00 06/24/20 09:26 Medication ( PO 1 each Darifenacin Er 7.5 DAILY TARYN Administration Mg ) Propranolol HCl 20 mg 06/21/20 13:30 06/24/20 13:44 Propranolol Hcl 20 Mg Tablet PO 20 mg TID@0830,1330,2100 TARYN Administration Allergies Allergies Allergy/AdvReac Type Severity Reaction Status Date / Time haloperidol [HALOPERIDOL] Allergy Intermediate SWELLING Unverified 06/06/20 14:55 carbamazepine [From Tegretol] Allergy Mild RASH, Unverified 06/06/20 14:55 TREMORS lithium [[place]] Allergy Mild RASH, Unverified 06/06/20 14:55 CRAWLING OUT OF SKIN olanzapine [From Zyprexa] Allergy Mild RICHARD Unverified 06/06/20 14:55 quetiapine [From Seroquel] Allergy Mild SWELLING Unverified 06/06/20 14:55 WHOLE BODY, RICHARD lisinopril [LISINOPRIL] Allergy Unknown UNKNOWN Unverified 06/06/20 14:55 topiramate [From TOPAMAX] Allergy Unknown RICHARD, SI Unverified 06/06/20 14:55 trazodone [TRAZODONE] Allergy Unknown SYNCOPE Unverified 06/06/20 14:55 aripiprazole [From ABILIFY] AdvReac Severe EXTREME SI Unverified 06/06/20 14:55 lamotrigine [From Lamictal] AdvReac Mild RICHARD Unverified 06/06/20 14:55 modafinil [From Provigil] AdvReac Mild RICHARD Unverified 06/06/20 14:55 ALL ANTI DEPRESSENTS Allergy Unknown I GO Uncoded 06/06/20 14:55 MANIC All anti-depressants Allergy Unknown manic, rash Uncoded 05/02/20 00:00 From GEODON Allergy Unknown LETHARGY Uncoded 06/06/20 14:55 From WELLBUTRIN AdvReac Unknown AGITATION, Uncoded 06/06/20 14:55 MAVIS
[2020-06-24] MEDS: Atorvastatin Calcium 10 MG TABLET PO (22:02)
[2020-06-24] MEDS: Acetaminophen 325 MG TABLET 650 MG PO (22:04)
[2020-06-25 06:23] LABS: Glucose, Whole Blood 117 mg/dL (60-115)
[2020-06-25 06:30] VITALS: BP 126/63; PULSE 64; RESP 16; TEMP 37.1
[2020-06-25] MEDS: Fluticasone Propionate 100 MCG BLST.W.DEV 1 PUFF INHALE ×2 (08:58→21:01)
[2020-06-25] MEDS: Benztropine Mesylate 1 MG TABLET 0.5 MG PO ×2 (09:01→21:02)
[2020-06-25] MEDS: NaPROXEN 500 MG TABLET PO ×2 (09:03→17:02)
[2020-06-25] MEDS: Gabapentin 300 MG CAPSULE PO ×2 (09:04→21:03)
[2020-06-25] MEDS: metFORMIN HCl 500 MG TABLET 1500 MG PO ×2 (09:04→17:02)
[2020-06-25 09:05] VITALS: BP 126/63; PULSE 64
[2020-06-25] MEDS: lisinopriL 10 MG TABLET PO (09:05)
[2020-06-25] MEDS: clonazePAM 0.5 MG TABLET PO ×3 (09:05→21:03)
[2020-06-25 09:06] VITALS: BP 126/63; PULSE 64
[2020-06-25] MEDS: amLODIPine Besylate 5 MG TABLET PO (09:06)
[2020-06-25] MEDS: Propranolol HCL 20 MG TABLET PO ×3 (09:06→22:29)
[2020-06-25] MEDS: Aspirin Enteric Coated 81 MG TABLET.DR PO (09:07)
--- NOTE | 2020-06-25 09:32 | HO.PSYCHPN ---
Assessment & Plan Assessment & Plan (1) Cognitive impairment: Status: Acute Code(s): R41.89 - Other symptoms and signs involving cognitive functions and awareness Assessment and Plan: Likely dementia Awaiting neurology consult (2) PTSD (post-traumatic stress disorder): Status: Acute Code(s): F43.10 - Post-traumatic stress disorder, unspecified Assessment and Plan: CT medication without change Greater than 50% of the session was spent on counseling and/or coordination of care Subjective Subjective Date of Service: 06/25/20 Reason For Visit: Ptsd Subjective Notes: Conditional Voluntary Interim History: Mouna remains quite confused and she tends to confabulate. She is worried about her possible diagnosis and was concerned that she might . She responded well to reassurance. Neurology consult is still pending. She is in behavioral control. Medication Compliance: Yes Side effects from medications: No Attending Groups: Intermittent Review of Systems Acute medical concerns: No Medical Review of Systems: unchanged Mental Status Exam Mental Status Exam Patient Appearance: Well Grooomed Patient Orientation: Person Level of Consciousness: Awake Patient Behavior: Appropriate Mood Description: Calm, Fearful and Anxious Affect Description: Calm, Fearful and Anxious Patient Cognition Impaired: Yes Ability to Follow Directions: Fair Speech Pattern: Appropriate Memory Description: Remote Impaired and Immediate Impaired Hallucinations: Auditory (Quiet) Delusions: Not Present Thought Process: Disoriented Thought Content: positive for [place], positive for Suicidal Ideation (No) and positive for Homicidal Ideation (No) Depressive Symptoms: Increased Anxiety Judgement: Fair Diagnostics Vital Signs (24Hr): Vital Signs - 24 hr 06/24/20 13:44 06/24/20 18:00 06/24/20 22:09 Temperature 97.4 F Pulse Rate 72 71 71 Respiratory Rate Blood Pressure 138/90 H 138/90 H 06/25/20 06:30 06/25/20 09:05 06/25/20 09:06 Temperature 98.7 F Pulse Rate 64 64 64 Respiratory Rate 16 Blood Pressure 126/63 126/63 126/63 Body Mass Index 35.1 Labs Results: 06/16/20 15:40 06/24/20 12:22 Labs: Laboratory Results - last 48 hr 06/23/20 06/23/20 06/24/20 17:20 22:17 06:27 Creatinine Estim Creat Clear Calc Estimated GFR POC Glucose 148 H 114 102 06/24/20 06/24/20 06/25/20 12:22 17:01 06:19 Creatinine 0.70 Estim Creat Clear Calc 87.6 Estimated GFR > 60 POC Glucose 143 H 117 H Medications Medications Current Medications Generic Name Dose Route Start Last Admin Trade Name Freq PRN Reason Stop Dose Admin Acetaminophen 650 mg 06/20/20 00:01 06/24/20 22:04 Acetaminophen 325 Mg Tablet PO 650 mg Q6H PRN Administration HEADACHE/PAIN.MILD (SCALE 1-3) Al Hydroxide/Mg Hydroxide 30 ml 06/20/20 00:01 Magnesium Hydrox/Alum Hydrox 30 Ml Oral.Susp PO Q6H PRN HEARTBURN/NAUSEA Amlodipine Besylate 5 mg 06/20/20 09:00 06/25/20 09:06 Amlodipine Besylate 5 Mg Tablet PO 5 mg DAILY TARYN Administration Aspirin 81 mg 06/20/20 09:00 06/25/20 09:07 Aspirin Enteric Coated 81 Mg Tablet.Dr PO 81 mg DAILY TARYN Administration Atorvastatin Calcium 10 mg 06/20/20 21:00 06/24/20 22:02 Atorvastatin Calcium 10 Mg Tablet PO 10 mg BEDTIME TARYN Administration Benztropine Mesylate 0.5 mg 06/22/20 21:00 06/25/20 09:01 Benztropine Mesylate 1 Mg Tablet PO 0.5 mg BID@0830,2100 TARYN Administration Clonazepam 0.5 mg 06/22/20 21:00 06/25/20 09:05 Clonazepam 0.5 Mg Tablet PO 0.5 mg TID TARYN Administration Fluticasone Propionate 1 puff 06/20/20 08:00 06/25/20 08:58 Fluticasone Propionate 100 Mcg Blst.W.Dev INHALE 1 puff RBID TARYN Administration Gabapentin 300 mg 06/20/20 08:30 06/25/20 09:04 Gabapentin 300 Mg Capsule PO 300 mg BID@0830,2100 TARYN Administration Hydroxyzine HCl 25 mg 06/20/20 21:00 Hydroxyzine Hcl 25 Mg Tablet PO BEDTIME MRX1 PRN NIGHT TIME ANXIETY Lisinopril 10 mg 06/20/20 09:00 06/25/20 09:05 Lisinopril 10 Mg Tablet PO 10 mg DAILY TARYN Administration Magnesium Hydroxide 30 ml 06/20/20 00:01 Milk Of Magnesia 30 Ml Oral.Susp PO Q24H PRN Constipation Meclizine HCl 25 mg 06/20/20 00:01 Meclizine Hcl 25 Mg Tablet PO DAILY PRN DIZZINESS Metformin HCl 1,500 mg 06/20/20 08:00 06/25/20 09:04 Metformin Hcl 500 Mg Tablet PO 1,500 mg BIDWM TARYN Administration Naproxen 500 mg 06/20/20 08:00 06/25/20 09:03 Naproxen 500 Mg Tablet PO 500 mg BIDWM TARYN Administration Patient Own 1 each 06/20/20 09:00 06/25/20 09:00 Medication ( PO 1 each Loxapine 10 Mg ) BID TARYN Administration Patient Own 1 each 06/20/20 21:00 06/24/20 22:22 Medication ( PO 1 each Loxapine 5 Mg) BEDTIME TARYN Administration Patient Own 1 each 06/20/20 09:00 06/25/20 09:01 Medication ( PO 1 each Darifenacin Er 7.5 DAILY TARYN Administration Mg ) Propranolol HCl 20 mg 06/21/20 13:30 06/25/20 09:06 Propranolol Hcl 20 Mg Tablet PO 20 mg TID@0830,1330,2100 TARYN Administration Allergies Allergies Allergy/AdvReac Type Severity Reaction Status Date / Time haloperidol [HALOPERIDOL] Allergy Intermediate SWELLING Unverified 06/06/20 14:55 carbamazepine [From Tegretol] Allergy Mild RASH, Unverified 06/06/20 14:55 TREMORS lithium [[place]] Allergy Mild RASH, Unverified 06/06/20 14:55 CRAWLING OUT OF SKIN olanzapine [From Zyprexa] Allergy Mild RICHARD Unverified 06/06/20 14:55 quetiapine [From Seroquel] Allergy Mild SWELLING Unverified 06/06/20 14:55 WHOLE BODY, RICHARD lisinopril [LISINOPRIL] Allergy Unknown UNKNOWN Unverified 06/06/20 14:55 topiramate [From TOPAMAX] Allergy Unknown RICHARD, SI Unverified 06/06/20 14:55 trazodone [TRAZODONE] Allergy Unknown SYNCOPE Unverified 06/06/20 14:55 aripiprazole [From ABILIFY] AdvReac Severe EXTREME SI Unverified 06/06/20 14:55 lamotrigine [From Lamictal] AdvReac Mild RICHARD Unverified 06/06/20 14:55 modafinil [From Provigil] AdvReac Mild RICHARD Unverified 06/06/20 14:55 ALL ANTI DEPRESSENTS Allergy Unknown I GO Uncoded 06/06/20 14:55 MANIC All anti-depressants Allergy Unknown manic, rash Uncoded 05/02/20 00:00 From GEODON Allergy Unknown LETHARGY Uncoded 06/06/20 14:55 From WELLBUTRIN AdvReac Unknown AGITATION, Uncoded 06/06/20 14:55 MAVIS
[2020-06-25 13:44] VITALS: BP 105/59; PULSE 77
[2020-06-25 16:14] VITALS: BP 122/66; PULSE 71; TEMP 36.4
[2020-06-25 16:59] LABS: Glucose, Whole Blood 156 mg/dL (60-115)
[2020-06-25] MEDS: Atorvastatin Calcium 10 MG TABLET PO (21:03)
[2020-06-26] VITALS (7 sets, daily range): BP systolic 118–155; BP diastolic 66–82; PULSE 62–90; RESP 16; TEMP 35.8–36
[2020-06-26 07:00] LABS: Glucose, Whole Blood 115 mg/dL (60-115)
--- NOTE | 2020-06-26 09:19 | HO.PSYCHPN ---
Assessment & Plan Assessment & Plan (1) PTSD (post-traumatic stress disorder): Status: Acute Code(s): F43.10 - Post-traumatic stress disorder, unspecified Assessment and Plan: No change in medication At baseline SW to coordinate with family (2) Cognitive impairment: Status: Acute Code(s): R41.89 - Other symptoms and signs involving cognitive functions and awareness Assessment and Plan: Await details of neurology consult Greater than 50% of the session was spent on counseling and/or coordination of care Subjective Subjective Date of Service: 06/25/20 Reason For Visit: Ptsd Subjective Notes: Conditional Voluntary Interim History: Mouna remains quite confused and she tends to confabulate. She feels much the same as she does when she is at home. She is now anxious about being able to go home. She was seen by Dr. Everett and she does not recall this at all. I have been in touch with him to get information regarding his consult. She is in behavioral control. Medication Compliance: Yes Side effects from medications: No Attending Groups: Intermittent Review of Systems Acute medical concerns: No Medical Review of Systems: unchanged Mental Status Exam Mental Status Exam Patient Appearance: Well Grooomed Patient Orientation: Person Level of Consciousness: Awake Patient Behavior: Appropriate Mood Description: Calm, Fearful and Anxious Affect Description: Calm, Fearful and Anxious Patient Cognition Impaired: Yes Ability to Follow Directions: Fair Speech Pattern: Appropriate Memory Description: Remote Impaired and Immediate Impaired Hallucinations: Auditory (Quiet) Delusions: Not Present Thought Process: Disoriented Thought Content: positive for [place], positive for Suicidal Ideation (No) and positive for Homicidal Ideation (No) Depressive Symptoms: Increased Anxiety Judgement: Fair Diagnostics Vital Signs (24Hr): Vital Signs - 24 hr 06/25/20 13:44 06/25/20 16:14 06/26/20 06:00 Temperature 97.6 F 96.8 F Pulse Rate 77 71 62 Respiratory Rate 16 Blood Pressure 105/59 L 122/66 118/66 Body Mass Index 35.1 Labs Results: 06/16/20 15:40 06/24/20 12:22 Labs: Laboratory Results - last 48 hr 06/24/20 06/24/20 06/25/20 12:22 17:01 06:19 Creatinine 0.70 Estim Creat Clear Calc 87.6 Estimated GFR > 60 POC Glucose 143 H 117 H 06/25/20 06/26/20 16:55 06:24 Creatinine Estim Creat Clear Calc Estimated GFR POC Glucose 156 H 115 Medications Medications Current Medications Generic Name Dose Route Start Last Admin Trade Name Freq PRN Reason Stop Dose Admin Acetaminophen 650 mg 06/20/20 00:01 06/24/20 22:04 Acetaminophen 325 Mg Tablet PO 650 mg Q6H PRN Administration HEADACHE/PAIN.MILD (SCALE 1-3) Al Hydroxide/Mg Hydroxide 30 ml 06/20/20 00:01 Magnesium Hydrox/Alum Hydrox 30 Ml Oral.Susp PO Q6H PRN HEARTBURN/NAUSEA Amlodipine Besylate 5 mg 06/20/20 09:00 06/25/20 09:06 Amlodipine Besylate 5 Mg Tablet PO 5 mg DAILY TARYN Administration Aspirin 81 mg 06/20/20 09:00 06/25/20 09:07 Aspirin Enteric Coated 81 Mg Tablet.Dr PO 81 mg DAILY TARYN Administration Atorvastatin Calcium 10 mg 06/20/20 21:00 06/25/20 21:03 Atorvastatin Calcium 10 Mg Tablet PO 10 mg BEDTIME TARYN Administration Benztropine Mesylate 0.5 mg 06/22/20 21:00 06/25/20 21:02 Benztropine Mesylate 1 Mg Tablet PO 0.5 mg BID@0830,2100 TARYN Administration Clonazepam 0.5 mg 06/22/20 21:00 06/25/20 21:03 Clonazepam 0.5 Mg Tablet PO 0.5 mg TID TARYN Administration Fluticasone Propionate 1 puff 06/20/20 08:00 06/25/20 21:01 Fluticasone Propionate 100 Mcg Blst.W.Dev INHALE 1 puff RBID TARYN Administration Gabapentin 300 mg 06/20/20 08:30 06/25/20 21:03 Gabapentin 300 Mg Capsule PO 300 mg BID@0830,2100 TARYN Administration Hydroxyzine HCl 25 mg 06/20/20 21:00 Hydroxyzine Hcl 25 Mg Tablet PO BEDTIME MRX1 PRN NIGHT TIME ANXIETY Lisinopril 10 mg 06/20/20 09:00 06/25/20 09:05 Lisinopril 10 Mg Tablet PO 10 mg DAILY TARYN Administration Magnesium Hydroxide 30 ml 06/20/20 00:01 Milk Of Magnesia 30 Ml Oral.Susp PO Q24H PRN Constipation Meclizine HCl 25 mg 06/20/20 00:01 Meclizine Hcl 25 Mg Tablet PO DAILY PRN DIZZINESS Metformin HCl 1,500 mg 06/20/20 08:00 06/25/20 17:02 Metformin Hcl 500 Mg Tablet PO 1,500 mg BIDWM TARYN Administration Naproxen 500 mg 06/20/20 08:00 06/25/20 17:02 Naproxen 500 Mg Tablet PO 500 mg BIDWM TARYN Administration Patient Own 1 each 06/20/20 09:00 06/25/20 21:04 Medication ( PO 1 each Loxapine 10 Mg ) BID TARYN Administration Patient Own 1 each 06/20/20 21:00 06/25/20 21:05 Medication ( PO 1 each Loxapine 5 Mg) BEDTIME TARYN Administration Patient Own 1 each 06/20/20 09:00 06/25/20 09:01 Medication ( PO 1 each Darifenacin Er 7.5 DAILY TARYN Administration Mg ) Propranolol HCl 20 mg 06/21/20 13:30 06/25/20 22:29 Propranolol Hcl 20 Mg Tablet PO 20 mg TID@0830,1330,2100 TARYN Administration Allergies Allergies Allergy/AdvReac Type Severity Reaction Status Date / Time haloperidol [HALOPERIDOL] Allergy Intermediate SWELLING Unverified 06/06/20 14:55 carbamazepine [From Tegretol] Allergy Mild RASH, Unverified 06/06/20 14:55 TREMORS lithium [[place]] Allergy Mild RASH, Unverified 06/06/20 14:55 CRAWLING OUT OF SKIN olanzapine [From Zyprexa] Allergy Mild RICHARD Unverified 06/06/20 14:55 quetiapine [From Seroquel] Allergy Mild SWELLING Unverified 06/06/20 14:55 WHOLE BODY, RICHARD lisinopril [LISINOPRIL] Allergy Unknown UNKNOWN Unverified 06/06/20 14:55 topiramate [From TOPAMAX] Allergy Unknown RICHARD, SI Unverified 06/06/20 14:55 trazodone [TRAZODONE] Allergy Unknown SYNCOPE Unverified 06/06/20 14:55 aripiprazole [From ABILIFY] AdvReac Severe EXTREME SI Unverified 06/06/20 14:55 lamotrigine [From Lamictal] AdvReac Mild RICHARD Unverified 06/06/20 14:55 modafinil [From Provigil] AdvReac Mild RICHARD Unverified 06/06/20 14:55 ALL ANTI DEPRESSENTS Allergy Unknown I GO Uncoded 06/06/20 14:55 MANIC All anti-depressants Allergy Unknown manic, rash Uncoded 05/02/20 00:00 From GEODON Allergy Unknown LETHARGY Uncoded 06/06/20 14:55 From WELLBUTRIN AdvReac Unknown AGITATION, Uncoded 06/06/20 14:55 MAVIS
[2020-06-26] MEDS: metFORMIN HCl 500 MG TABLET 1500 MG PO ×2 (09:31→17:18)
[2020-06-26] MEDS: amLODIPine Besylate 5 MG TABLET PO (09:31)
[2020-06-26] MEDS: clonazePAM 0.5 MG TABLET PO ×3 (09:32→22:54)
[2020-06-26] MEDS: Aspirin Enteric Coated 81 MG TABLET.DR PO (09:32)
[2020-06-26] MEDS: Benztropine Mesylate 1 MG TABLET 0.5 MG PO ×2 (09:33→22:52)
[2020-06-26] MEDS: lisinopriL 10 MG TABLET PO (09:33)
[2020-06-26] MEDS: NaPROXEN 500 MG TABLET PO ×2 (09:35→17:17)
[2020-06-26] MEDS: Gabapentin 300 MG CAPSULE PO ×2 (09:35→22:53)
[2020-06-26] MEDS: Fluticasone Propionate 100 MCG BLST.W.DEV 1 PUFF INHALE ×2 (09:36→22:58)
[2020-06-26] MEDS: Propranolol HCL 20 MG TABLET PO ×3 (09:40→22:56)
--- NOTE | 2020-06-26 15:55 | CONS_ITS ---
DATE OF SERVICE: 06/25/2020 HISTORY OF PRESENT ILLNESS: This is a 60-year-old woman, who was admitted with depression, now feels better. In the last 6 months, she has noted some trouble with her short-term memory. She has a 10th grade education. She has medications given to her and does not know all of them. She apparently takes gabapentin, clonazepam, lisinopril, metformin, and some other medications at home for diabetes and hypertension and recent medicine for hyperlipidemia. PHYSICAL EXAMINATION: On examination, she is alert, oriented to month and year, does not know the date. She knows her date of and age. She was unable to do serial 7 subtractions. 2/3 recall in 3 minutes. Cranial nerves II through XII are normal. Muscle tone and strength are normal in all 4 extremities. Deep tendon reflexes symmetrical 2+. Plantar responses flexor. IMPRESSION: Mild cognitive impairment. We would recommend MRI of the brain, EEG, thyroid profile, B12, and folate levels. Thank you for allowing me to participate in her care. MD RUIZ Arzate/ELIZABETH / [id number] NIKKI
[2020-06-26 18:30] LABS: Glucose, Whole Blood 177 mg/dL (60-115)
[2020-06-26] MEDS: Loperamide HCl 2 MG CAPSULE 4 MG PO (21:42)
[2020-06-26] MEDS: Atorvastatin Calcium 10 MG TABLET PO (22:54)
[2020-06-27] VITALS (7 sets, daily range): BP systolic 109–175; BP diastolic 60–92; PULSE 62–91; RESP 16; TEMP 35.9–36.1; O2SAT 94; BMI 34.2
[2020-06-27 06:18] LABS: Glucose, Whole Blood 92 mg/dL (60-115)
[2020-06-27] MEDS: metFORMIN HCl 500 MG TABLET 1500 MG PO ×2 (09:08→17:02)
[2020-06-27] MEDS: clonazePAM 0.5 MG TABLET PO ×3 (09:08→20:28)
[2020-06-27] MEDS: Gabapentin 300 MG CAPSULE PO ×2 (09:09→20:28)
[2020-06-27] MEDS: Benztropine Mesylate 1 MG TABLET 0.5 MG PO ×2 (09:09→20:29)
[2020-06-27] MEDS: Aspirin Enteric Coated 81 MG TABLET.DR PO (09:10)
[2020-06-27] MEDS: lisinopriL 10 MG TABLET PO (09:10)
[2020-06-27] MEDS: amLODIPine Besylate 5 MG TABLET PO (09:11)
--- NOTE | 2020-06-27 09:19 | EEG_ITS ---
This is a 16-channel EEG with an EKG lead. The patient is reported awake during the tracing. Background EEG rhythm is about 8 hertz, 5 to 30 microvolt posteriorly, lower amplitude fast anteriorly. Photic stimulation does not produce any significant abnormality. Hyperventilation is not performed. Frequent muscle artifacts are noted especially in anterior leads. Cardiac lead does not reveal any significant abnormality. No sharp wave spikes or paroxysmal tendency or asymmetry noted. IMPRESSION: Unremarkable EEG. MD NOVA Belcher/ELIZABETH / [id number]
--- NOTE | 2020-06-27 09:21 | P.PNPSI_ITS ---
Subjective Subjective Date of Service: 06/27/20 Reason For Visit: Ptsd Subjective Notes: Conditional Voluntary Interim History: Mouna remains quite confused and she tends to confabulate. She feels much the same as she does when she is at home. She is now anxious about being able to go home. I reviewed the diagnosis with her again and she seemed to process it better. Repeat MOCA was 19/30 which was a substantial improvement. She was seen by Dr. Stroud. His impression is dementia. Labs ordered. EEG pending I spoke with ANNETTE along with her daughter about this diagnosis and the family will be discussing how to support her. Medication Compliance: Yes Side effects from medications: No Attending Groups: Intermittent Review of Systems Acute medical concerns: No Medical Review of Systems: unchanged Mental Status Exam Mental Status Exam Patient Appearance: Well Grooomed Patient Orientation: Person Level of Consciousness: Awake and Appropriate Patient Behavior: Appropriate, Anxious and Confused Mood Description: Calm and Anxious Affect Description: Calm, Fearful and Anxious Patient Cognition Impaired: Yes Ability to Follow Directions: Fair Speech Pattern: Appropriate Memory Description: Remote Impaired and Immediate Impaired Hallucinations: Auditory (Quiet) Delusions: Not Present Thought Process: Disoriented Thought Content: positive for [place], negative for Suicidal Ideation and negative for Homicidal Ideation Depressive Symptoms: Increased Anxiety Judgement: Fair Judgement and Insight: Impaired judgment due to cognitive issues Diagnostics Vital Signs (24Hr): Vital Signs - 24 hr 06/26/20 09:31 06/26/20 09:33 06/26/20 09:40 Temperature Pulse Rate 62 62 62 Respiratory Rate Blood Pressure 118/66 118/66 118/66 Pulse Oximetry 06/26/20 13:23 06/26/20 21:00 06/26/20 22:56 Temperature 96.4 F L Pulse Rate 72 90 67 Respiratory Rate Blood Pressure 120/68 136/82 155/78 H Pulse Oximetry 06/27/20 06:23 06/27/20 09:10 06/27/20 09:11 Temperature 96.6 F L Pulse Rate 62 62 62 Respiratory Rate 16 Blood Pressure 109/60 109/60 109/60 Pulse Oximetry 94 Body Mass Index 35.1 Labs Results: 06/16/20 15:40 06/24/20 12:22 Labs: Laboratory Results - last 48 hr 06/25/20 06/26/20 06/26/20 16:55 06:24 16:48 POC Glucose 156 H 115 177 H 06/27/20 06:14 POC Glucose 92 Medications Medications Current Medications Generic Name Dose Route Start Last Admin Trade Name Freq PRN Reason Stop Dose Admin Acetaminophen 650 mg 06/20/20 00:01 06/24/20 22:04 Acetaminophen 325 Mg Tablet PO 650 mg Q6H PRN Administration HEADACHE/PAIN.MILD (SCALE 1-3) Al Hydroxide/Mg Hydroxide 30 ml 06/20/20 00:01 Magnesium Hydrox/Alum Hydrox 30 Ml Oral.Susp PO Q6H PRN HEARTBURN/NAUSEA Amlodipine Besylate 5 mg 06/20/20 09:00 06/27/20 09:11 Amlodipine Besylate 5 Mg Tablet PO 5 mg DAILY TARYN Administration Aspirin 81 mg 06/20/20 09:00 06/27/20 09:10 Aspirin Enteric Coated 81 Mg Tablet.Dr PO 81 mg DAILY TARYN Administration Atorvastatin Calcium 10 mg 06/20/20 21:00 06/26/20 22:54 Atorvastatin Calcium 10 Mg Tablet PO 10 mg BEDTIME TARYN Administration Benztropine Mesylate 0.5 mg 06/22/20 21:00 06/27/20 09:09 Benztropine Mesylate 1 Mg Tablet PO 0.5 mg BID@0830,2100 TARYN Administration Clonazepam 0.5 mg 06/22/20 21:00 06/27/20 09:08 Clonazepam 0.5 Mg Tablet PO 0.5 mg TID TARYN Administration Fluticasone Propionate 1 puff 06/20/20 08:00 06/26/20 22:58 Fluticasone Propionate 100 Mcg Blst.W.Dev INHALE 1 puff RBID TARYN Administration Gabapentin 300 mg 06/20/20 08:30 06/27/20 09:09 Gabapentin 300 Mg Capsule PO 300 mg BID@0830,2100 TARYN Administration Hydroxyzine HCl 25 mg 06/20/20 21:00 Hydroxyzine Hcl 25 Mg Tablet PO BEDTIME MRX1 PRN NIGHT TIME ANXIETY Lisinopril 10 mg 06/20/20 09:00 06/27/20 09:10 Lisinopril 10 Mg Tablet PO 10 mg DAILY TARYN Administration Loperamide HCl 4 mg 06/26/20 20:35 06/26/20 21:42 Loperamide Hcl 2 Mg Capsule PO 4 mg Q4H PRN Administration Diarrhea Magnesium Hydroxide 30 ml 06/20/20 00:01 Milk Of Magnesia 30 Ml Oral.Susp PO Q24H PRN Constipation Meclizine HCl 25 mg 06/20/20 00:01 Meclizine Hcl 25 Mg Tablet PO DAILY PRN DIZZINESS Metformin HCl 1,500 mg 06/20/20 08:00 06/27/20 09:08 Metformin Hcl 500 Mg Tablet PO 1,500 mg BIDWM TARYN Administration Naproxen 500 mg 06/20/20 08:00 06/26/20 17:17 Naproxen 500 Mg Tablet PO 500 mg BIDWM TARYN Administration Patient Own 1 each 06/20/20 09:00 06/26/20 22:55 Medication ( PO 1 each Loxapine 10 Mg ) BID TARYN Administration Patient Own 1 each 06/20/20 21:00 06/26/20 22:55 Medication ( PO 1 each Loxapine 5 Mg) BEDTIME TARYN Administration Patient Own 1 each 06/20/20 09:00 06/26/20 09:38 Medication ( PO 1 each Darifenacin Er 7.5 DAILY TARYN Administration Mg ) Propranolol HCl 20 mg 06/21/20 13:30 06/26/20 22:56 Propranolol Hcl 20 Mg Tablet PO 20 mg TID@0830,1330,2100 TARYN Administration Allergies Allergies Allergy/AdvReac Type Severity Reaction Status Date / Time haloperidol [HALOPERIDOL] Allergy Intermediate SWELLING Unverified 06/06/20 14:55 carbamazepine [From Tegretol] Allergy Mild RASH, Unverified 06/06/20 14:55 TREMORS lithium [[place]] Allergy Mild RASH, Unverified 06/06/20 14:55 CRAWLING OUT OF SKIN olanzapine [From Zyprexa] Allergy Mild RICHARD Unverified 06/06/20 14:55 quetiapine [From Seroquel] Allergy Mild SWELLING Unverified 06/06/20 14:55 WHOLE BODY, RICHARD lisinopril [LISINOPRIL] Allergy Unknown UNKNOWN Unverified 06/06/20 14:55 topiramate [From TOPAMAX] Allergy Unknown RICHARD, SI Unverified 06/06/20 14:55 trazodone [TRAZODONE] Allergy Unknown SYNCOPE Unverified 06/06/20 14:55 aripiprazole [From ABILIFY] AdvReac Severe EXTREME SI Unverified 06/06/20 14:55 lamotrigine [From Lamictal] AdvReac Mild RICHARD Unverified 06/06/20 14:55 modafinil [From Provigil] AdvReac Mild RICHARD Unverified 06/06/20 14:55 ALL ANTI DEPRESSENTS Allergy Unknown I GO Uncoded 06/06/20 14:55 MANIC All anti-depressants Allergy Unknown manic, rash Uncoded 05/02/20 00:00 From GEODON Allergy Unknown LETHARGY Uncoded 06/06/20 14:55 From WELLBUTRIN AdvReac Unknown AGITATION, Uncoded 06/06/20 14:55 MAVIS Assessment & Plan Assessment & Plan (1) PTSD (post-traumatic stress disorder): Status: Acute Code(s): F43.10 - Post-traumatic stress disorder, unspecified Assessment and Plan: CT medication without change (2) Dementia: Status: Acute Code(s): F03.90 - Unspecified dementia without behavioral disturbance Assessment and Plan: Educate family Family to work together to increase in home support and supervision Await labs Begin Aricept Outpatient Neuropsychological testing Greater than 50% of the session was spent on counseling and/or coordination of care
[2020-06-27] MEDS: NaPROXEN 500 MG TABLET PO ×2 (09:36→17:04)
[2020-06-27] MEDS: Propranolol HCL 20 MG TABLET PO ×3 (09:37→21:09)
[2020-06-27] MEDS: Fluticasone Propionate 100 MCG BLST.W.DEV 1 PUFF INHALE ×2 (09:37→21:06)
[2020-06-27 10:59] LABS: Erythrocyte Sedimentation Rate 23 MM/HR (0-20)
[2020-06-27 11:19] LABS: Thyroid Stimulating Hormone 2.26 mIU/mL (0.32-4.0)
--- NOTE | 2020-06-27 14:17 | PC.NURSE ---
Pt participated in [facility] screen on this date, 7.2 version, with improved scored of /, still indicating cognition is not within normal limits, indicative of Dementia. Pt previously participated in [facility] screen, version 7.3, last week, scoring 08/19.
[2020-06-27] MEDS: Donepezil HCl 5 MG TABLET PO (14:55)
[2020-06-27] MEDS: Loperamide HCl 2 MG CAPSULE 4 MG PO (16:15)
[2020-06-27 16:51] LABS: Glucose, Whole Blood 124 mg/dL (60-115)
[2020-06-27] MEDS: Atorvastatin Calcium 10 MG TABLET PO (20:28)
[2020-06-28] VITALS (7 sets, daily range): BP systolic 90–150; BP diastolic 53–81; PULSE 69–90; RESP 18; TEMP 36.2–36.4; O2SAT 96
[2020-06-28 06:05] LABS: Glucose, Whole Blood 98 mg/dL (60-115)
[2020-06-28 08:29] LABS: Alanine Aminotransferase 54 U/L (0-31); Albumin Level 4.2 g/dL (3.5-5.0); Alkaline Phosphatase 90 U/L (39-117); Anion Gap 14 (12-20); Aspartate Amino Transferase 56 U/L (5-31); Bilirubin Total 0.5 mg/dL (0.0-1.0); Blood Urea Nitrogen 22 mg/dL (9-16); Calcium 9.3 mg/dL (8.4-10.2); Carbon Dioxide 25 mmol/L (22-29); Chloride 105 mmol/L (96-108); Creatinine Clr Calc Pharmacy 78.5; Estimated Glomerular Filt Rate > 60; Glucose Fasting 108 mg/dL (60-99); Potassium 4.8 mmol/l (3.3-5.1); Sodium 139 mmol/L (135-145); Total Protein 7.6 g/dL (6.5-8.0)
[2020-06-28] MEDS: Aspirin Enteric Coated 81 MG TABLET.DR PO (09:12)
[2020-06-28] MEDS: NaPROXEN 500 MG TABLET PO ×2 (09:12→17:06)
[2020-06-28] MEDS: Gabapentin 300 MG CAPSULE PO ×2 (09:13→21:05)
[2020-06-28] MEDS: Benztropine Mesylate 1 MG TABLET 0.5 MG PO ×2 (09:14→21:08)
[2020-06-28] MEDS: clonazePAM 0.5 MG TABLET PO ×3 (09:14→21:05)
[2020-06-28] MEDS: metFORMIN HCl 500 MG TABLET 1500 MG PO ×2 (09:15→17:06)
[2020-06-28] MEDS: Donepezil HCl 5 MG TABLET PO (09:18)
--- NOTE | 2020-06-28 10:30 | P.PNPSI_ITS ---
Subjective Subjective Date of Service: 06/28/20 Reason For Visit: Hospital daily visit Subjective Notes: Conditional Voluntary Interim History: Mouna remains quite confused and she tends to confabulate. She feels much the same as she does when she is at home. She is now anxious about being able to go home. I spoke with her about her daughter's plan to speak with the rest of the family regarding her diagnosis and they would make a plan as to how to support Mouna. I reviewed the diagnosis with her again and she seemed to process it better. Repeat MOCA was which was a substantial improvement. Medication Compliance: Yes Side effects from medications: No Attending Groups: Yes Review of Systems Acute medical concerns: No Medical Review of Systems: unchanged Mental Status Exam Mental Status Exam Patient Appearance: Well Grooomed Patient Orientation: Person Level of Consciousness: Awake and Appropriate Patient Behavior: Appropriate, Anxious, Distractible and Confused Mood Description: Calm, Anxious and Blunted Affect Description: Calm, Fearful and Anxious Patient Cognition Impaired: Yes Ability to Follow Directions: Fair Speech Pattern: Appropriate Memory Description: Remote Impaired and Immediate Impaired Hallucinations: Auditory (Quiet) Delusions: Not Present Thought Process: Disoriented Thought Content: positive for [place], negative for Suicidal Ideation and negative for Homicidal Ideation Depressive Symptoms: Increased Anxiety Judgement: Fair Judgement and Insight: Impaired judgment due to cognitive issues Diagnostics Vital Signs (24Hr): Vital Signs - 24 hr 06/27/20 13:01 06/27/20 18:00 06/27/20 21:29 Temperature 97 F 97 F Pulse Rate 91 77 77 Respiratory Rate Blood Pressure 157/87 H 175/92 H 175/92 H Pulse Oximetry 06/28/20 06:18 06/28/20 09:21 06/28/20 09:46 Temperature 97.5 F Pulse Rate 69 69 69 Respiratory Rate 18 Blood Pressure 90/53 L 90/53 L 90/53 L Pulse Oximetry 96 Body Mass Index 34.2 Labs Results: 06/16/20 15:40 06/28/20 07:38 Labs: Laboratory Results - last 48 hr 06/26/20 06/27/20 06/27/20 16:48 06:14 09:40 ESR 23 H Sodium Potassium Chloride Carbon Dioxide Anion Gap BUN Creatinine Estim Creat Clear Calc Estimated GFR POC Glucose 177 H 92 Fasting Glucose Calcium Total Bilirubin AST ALT Alkaline Phosphatase Total Protein Albumin TSH 10/05/0906/27/20 06/28/20 09:40 16:35 05:59 ESR Sodium Potassium Chloride Carbon Dioxide Anion Gap BUN Creatinine Estim Creat Clear Calc Estimated GFR POC Glucose 124 H 98 Fasting Glucose Calcium Total Bilirubin AST ALT Alkaline Phosphatase Total Protein Albumin TSH 2.26 06/28/20 07:38 ESR Sodium 139 Potassium 4.8 Chloride 105 Carbon Dioxide 25 Anion Gap 14 BUN 22 H Creatinine 0.77 Estim Creat Clear Calc 78.5 Estimated GFR > 60 POC Glucose Fasting Glucose 108 H Calcium 9.3 Total Bilirubin 0.5 AST 56 H ALT 54 H Alkaline Phosphatase 90 Total Protein 7.6 Albumin 4.2 TSH Medications Medications Current Medications Generic Name Dose Route Start Last Admin Trade Name Freq PRN Reason Stop Dose Admin Acetaminophen 650 mg 06/20/20 00:01 06/24/20 22:04 Acetaminophen 325 Mg Tablet PO 650 mg Q6H PRN Administration HEADACHE/PAIN.MILD (SCALE 1-3) Al Hydroxide/Mg Hydroxide 30 ml 06/20/20 00:01 Magnesium Hydrox/Alum Hydrox 30 Ml Oral.Susp PO Q6H PRN HEARTBURN/NAUSEA Amlodipine Besylate 5 mg 06/20/20 09:00 06/27/20 09:11 Amlodipine Besylate 5 Mg Tablet PO 5 mg DAILY TARYN Administration Aspirin 81 mg 06/20/20 09:00 06/28/20 09:12 Aspirin Enteric Coated 81 Mg Tablet.Dr PO 81 mg DAILY TARYN Administration Atorvastatin Calcium 10 mg 06/20/20 21:00 06/27/20 20:28 Atorvastatin Calcium 10 Mg Tablet PO 10 mg BEDTIME TARYN Administration Benztropine Mesylate 0.5 mg 06/22/20 21:00 06/28/20 09:14 Benztropine Mesylate 1 Mg Tablet PO 0.5 mg BID@0830,2100 TARYN Administration Clonazepam 0.5 mg 06/28/20 09:00 06/28/20 09:14 Clonazepam 0.5 Mg Tablet PO 0.5 mg TID TARYN Administration Donepezil HCl 5 mg 06/27/20 14:30 06/28/20 09:18 Donepezil Hcl 5 Mg Tablet PO 5 mg DAILY TARYN Administration Fluticasone Propionate 1 puff 06/20/20 08:00 06/28/20 09:20 Fluticasone Propionate 100 Mcg Blst.W.Dev INHALE Not Given RBID [facility] Gabapentin 300 mg 06/20/20 08:30 06/28/20 09:13 Gabapentin 300 Mg Capsule PO 300 mg BID@0830,2100 TARYN Administration Hydroxyzine HCl 25 mg 06/20/20 21:00 Hydroxyzine Hcl 25 Mg Tablet PO BEDTIME MRX1 PRN NIGHT TIME ANXIETY Lisinopril 10 mg 06/20/20 09:00 06/28/20 09:21 Lisinopril 10 Mg Tablet PO Not Given DAILY TARYN Loperamide HCl 4 mg 06/26/20 20:35 06/27/20 16:15 Loperamide Hcl 2 Mg Capsule PO 2 mg Q4H PRN Administration Diarrhea Magnesium Hydroxide 30 ml 06/20/20 00:01 Milk Of Magnesia 30 Ml Oral.Susp PO Q24H PRN Constipation Meclizine HCl 25 mg 06/20/20 00:01 Meclizine Hcl 25 Mg Tablet PO DAILY PRN DIZZINESS Metformin HCl 1,500 mg 06/20/20 08:00 06/28/20 09:15 Metformin Hcl 500 Mg Tablet PO 1,500 mg BIDWM TARYN Administration Naproxen 500 mg 06/20/20 08:00 06/28/20 09:12 Naproxen 500 Mg Tablet PO 500 mg BIDWM TARYN Administration Patient Own 1 each 06/20/20 09:00 06/27/20 21:07 Medication ( PO 1 each Loxapine 10 Mg ) BID TARYN Administration Patient Own 1 each 06/20/20 21:00 06/27/20 21:08 Medication ( PO 1 each Loxapine 5 Mg) BEDTIME TARYN Administration Patient Own 1 each 06/20/20 09:00 06/27/20 12:56 Medication ( PO 1 each Darifenacin Er 7.5 DAILY TARYN Administration Mg ) Propranolol HCl 20 mg 06/21/20 13:30 06/28/20 09:46 Propranolol Hcl 20 Mg Tablet PO Not Given TID@0830,1330,2100 [facility] Allergies Allergies Allergy/AdvReac Type Severity Reaction Status Date / Time haloperidol [HALOPERIDOL] Allergy Intermediate SWELLING Unverified 06/06/20 14:55 carbamazepine [From Tegretol] Allergy Mild RASH, Unverified 06/06/20 14:55 TREMORS lithium [[place]] Allergy Mild RASH, Unverified 06/06/20 14:55 CRAWLING OUT OF SKIN olanzapine [From Zyprexa] Allergy Mild RICHARD Unverified 06/06/20 14:55 quetiapine [From Seroquel] Allergy Mild SWELLING Unverified 06/06/20 14:55 WHOLE BODY, RICHARD lisinopril [LISINOPRIL] Allergy Unknown UNKNOWN Unverified 06/06/20 14:55 topiramate [From TOPAMAX] Allergy Unknown RICHARD, SI Unverified 06/06/20 14:55 trazodone [TRAZODONE] Allergy Unknown SYNCOPE Unverified 06/06/20 14:55 aripiprazole [From ABILIFY] AdvReac Severe EXTREME SI Unverified 06/06/20 14:55 lamotrigine [From Lamictal] AdvReac Mild RICHARD Unverified 06/06/20 14:55 modafinil [From Provigil] AdvReac Mild RICHARD Unverified 06/06/20 14:55 ALL ANTI DEPRESSENTS Allergy Unknown I GO Uncoded 06/06/20 14:55 MANIC All anti-depressants Allergy Unknown manic, rash Uncoded 05/02/20 00:00 From GEODON Allergy Unknown LETHARGY Uncoded 06/06/20 14:55 From WELLBUTRIN AdvReac Unknown AGITATION, Uncoded 06/06/20 14:55 MAVIS Assessment & Plan Assessment & Plan (1) Dementia: Status: Acute Code(s): F03.90 - Unspecified dementia without behavioral disturbance Assessment and Plan: Family to plan support for Mouna at home She has started Aricept with no difficulty Neuropsych testing to be done as an outpatient (2) PTSD (post-traumatic stress disorder): Status: Acute Code(s): F43.10 - Post-traumatic stress disorder, unspecified Assessment and Plan: CT medications without change Currently at baseline Greater than 50% of the session was spent on counseling and/or coordination of care Patient educated on: diagnosis and medication risk/benefits Informed Consent: further education needed Reason for contiued inpatient stay Substantial Risk for: rapid decompensation
[2020-06-28] MEDS: Acetaminophen 325 MG TABLET 650 MG PO (13:57)
[2020-06-28] MEDS: Propranolol HCL 20 MG TABLET PO ×2 (13:57→21:05)
[2020-06-28 16:49] LABS: Glucose, Whole Blood 125 mg/dL (60-115)
[2020-06-28 20:07] LABS: Folate 15.2 ng/mL (> or = 4.0); Vitamin B12 453 pg/mL (200-900)
[2020-06-28 20:21] LABS: Syphilis Screen Nonreactive (Nonreactive)
[2020-06-28] MEDS: Atorvastatin Calcium 10 MG TABLET PO (21:06)
[2020-06-28] MEDS: Fluticasone Propionate 100 MCG BLST.W.DEV 1 PUFF INHALE (21:08)
[2020-06-29] VITALS (7 sets, daily range): BP systolic 132–141; BP diastolic 75–83; PULSE 67–80; TEMP 36.4–36.6
[2020-06-29 06:25] LABS: Glucose, Whole Blood 96 mg/dL (60-115)
[2020-06-29 08:37] LABS: Ammonia 36 umol/L (13-55)
[2020-06-29] MEDS: Fluticasone Propionate 100 MCG BLST.W.DEV 1 PUFF INHALE ×2 (09:04→20:26)
[2020-06-29] MEDS: metFORMIN HCl 500 MG TABLET 1500 MG PO ×2 (09:08→16:56)
[2020-06-29] MEDS: amLODIPine Besylate 5 MG TABLET PO (09:08)
[2020-06-29] MEDS: Propranolol HCL 20 MG TABLET PO ×3 (09:09→20:23)
[2020-06-29] MEDS: Aspirin Enteric Coated 81 MG TABLET.DR PO (09:09)
[2020-06-29] MEDS: Gabapentin 300 MG CAPSULE PO ×2 (09:09→20:23)
[2020-06-29] MEDS: Benztropine Mesylate 1 MG TABLET 0.5 MG PO ×2 (09:10→20:22)
[2020-06-29] MEDS: NaPROXEN 500 MG TABLET PO ×2 (09:10→16:56)
[2020-06-29] MEDS: lisinopriL 10 MG TABLET PO (09:11)
[2020-06-29] MEDS: Donepezil HCl 5 MG TABLET PO (09:12)
[2020-06-29] MEDS: clonazePAM 0.5 MG TABLET PO ×3 (09:12→20:22)
[2020-06-29] MEDS: Bacitracin Oint 14 GM TUBE 1 APPL TOPICAL ×3 (13:38→20:26)
[2020-06-29 16:49] LABS: Glucose, Whole Blood 134 mg/dL (60-115)
--- NOTE | 2020-06-29 18:37 | HO.PSYCHPN ---
Subjective Subjective Date of Service: 06/29/20 Reason For Visit: Hospital daily visit Subjective Notes: Conditional Voluntary Interim History: Mouna remains quite confused and she tends to confabulate. She feels much the same as she does when she is at home. She is now anxious about being able to go home. I spoke with her about her daughter's plan to speak with the rest of the family regarding her diagnosis and they would make a plan as to how to support Mouna. I reviewed the diagnosis with her again and she seemed to process it better. Repeat MOCA was which was a substantial improvement. She has no new concerns today and she has been keeping to herself. Medication Compliance: Yes Side effects from medications: No Attending Groups: Yes Review of Systems Acute medical concerns: No Medical Review of Systems: unchanged Review of Systems Review of Systems Yes all other systems are reviewed and are negative Mental Status Exam Mental Status Exam Patient Appearance: Well Grooomed Patient Orientation: Person Level of Consciousness: Awake and Appropriate Patient Behavior: Appropriate, Anxious, Distractible and Confused Mood Description: Calm, Anxious and Blunted Affect Description: Calm, Fearful and Anxious Patient Cognition Impaired: Yes Ability to Follow Directions: Fair Speech Pattern: Appropriate Memory Description: Remote Impaired and Immediate Impaired Hallucinations: Auditory (Quiet) Delusions: Not Present Thought Process: Disoriented Thought Content: positive for [place], negative for Suicidal Ideation and negative for Homicidal Ideation Depressive Symptoms: Increased Anxiety Judgement: Fair Judgement and Insight: Impaired judgment due to cognitive issues Diagnostics Vital Signs (24Hr): Vital Signs - 24 hr 06/28/20 21:05 06/29/20 06:00 06/29/20 09:08 Temperature 97.9 F Pulse Rate 69 67 67 Blood Pressure 116/71 141/75 H 141/75 H 06/29/20 09:09 06/29/20 09:11 06/29/20 13:48 Temperature Pulse Rate 67 67 80 Blood Pressure 141/75 H 141/75 H 137/82 Body Mass Index 34.2 Labs Results: 06/16/20 15:40 06/28/20 07:38 Labs: Laboratory Results - last 48 hr 06/27/20 06/27/20 06/28/20 09:40 09:40 05:59 Sodium Potassium Chloride Carbon Dioxide Anion Gap BUN Creatinine Estim Creat Clear Calc Estimated GFR POC Glucose 98 Fasting Glucose Calcium Total Bilirubin AST ALT Alkaline Phosphatase Ammonia Total Protein Albumin Vitamin B12 453 Folate 15.2 T.pallidum Ab (EIA) Nonreactive 06/28/20 06/28/20 06/29/20 07:38 16:41 06:21 Sodium 139 Potassium 4.8 Chloride 105 Carbon Dioxide 25 Anion Gap 14 BUN 22 H Creatinine 0.77 Estim Creat Clear Calc 78.5 Estimated GFR > 60 POC Glucose 125 H 96 Fasting Glucose 108 H Calcium 9.3 Total Bilirubin 0.5 AST 56 H ALT 54 H Alkaline Phosphatase 90 Ammonia Total Protein 7.6 Albumin 4.2 Vitamin B12 Folate T.pallidum Ab (EIA) 06/29/20 06/29/20 07:58 16:42 Sodium Potassium Chloride Carbon Dioxide Anion Gap BUN Creatinine Estim Creat Clear Calc Estimated GFR POC Glucose 134 H Fasting Glucose Calcium Total Bilirubin AST ALT Alkaline Phosphatase Ammonia 36 Total Protein Albumin Vitamin B12 Folate T.pallidum Ab (EIA) Medications Medications Current Medications Generic Name Dose Route Start Last Admin Trade Name Freq PRN Reason Stop Dose Admin Acetaminophen 650 mg 06/20/20 00:01 06/28/20 13:57 Acetaminophen 325 Mg Tablet PO 650 mg Q6H PRN Administration HEADACHE/PAIN.MILD (SCALE 1-3) Al Hydroxide/Mg Hydroxide 30 ml 06/20/20 00:01 Magnesium Hydrox/Alum Hydrox 30 Ml Oral.Susp PO Q6H PRN HEARTBURN/NAUSEA Amlodipine Besylate 5 mg 06/20/20 09:00 06/29/20 09:08 Amlodipine Besylate 5 Mg Tablet PO 5 mg DAILY TARYN Administration Aspirin 81 mg 06/20/20 09:00 06/29/20 09:09 Aspirin Enteric Coated 81 Mg Tablet.Dr PO 81 mg DAILY TARYN Administration Atorvastatin Calcium 10 mg 06/20/20 21:00 06/28/20 21:06 Atorvastatin Calcium 10 Mg Tablet PO 10 mg BEDTIME TARYN Administration Bacitracin 1 appl 06/29/20 10:45 06/29/20 13:38 Bacitracin Oint 14 Gm Tube TOPICAL 1 appl TID TARYN Administration Protocol Benztropine Mesylate 0.5 mg 06/22/20 21:00 06/29/20 09:10 Benztropine Mesylate 1 Mg Tablet PO 0.5 mg BID@0830,2100 TARYN Administration Clonazepam 0.5 mg 06/28/20 09:00 06/29/20 15:31 Clonazepam 0.5 Mg Tablet PO 0.5 mg TID TARYN Administration Donepezil HCl 5 mg 06/27/20 14:30 06/29/20 09:12 Donepezil Hcl 5 Mg Tablet PO 5 mg DAILY TARYN Administration Fluticasone Propionate 1 puff 06/20/20 08:00 06/29/20 09:04 Fluticasone Propionate 100 Mcg Blst.W.Dev INHALE 1 puff RBID TARYN Administration Gabapentin 300 mg 06/20/20 08:30 06/29/20 09:09 Gabapentin 300 Mg Capsule PO 300 mg BID@0830,2100 TARYN Administration Hydroxyzine HCl 25 mg 06/20/20 21:00 Hydroxyzine Hcl 25 Mg Tablet PO BEDTIME MRX1 PRN NIGHT TIME ANXIETY Lisinopril 10 mg 06/20/20 09:00 06/29/20 09:11 Lisinopril 10 Mg Tablet PO 10 mg DAILY TARYN Administration Loperamide HCl 4 mg 06/26/20 20:35 06/27/20 16:15 Loperamide Hcl 2 Mg Capsule PO 2 mg Q4H PRN Administration Diarrhea Magnesium Hydroxide 30 ml 06/20/20 00:01 Milk Of Magnesia 30 Ml Oral.Susp PO Q24H PRN Constipation Meclizine HCl 25 mg 06/20/20 00:01 Meclizine Hcl 25 Mg Tablet PO DAILY PRN DIZZINESS Metformin HCl 1,500 mg 06/20/20 08:00 06/29/20 16:56 Metformin Hcl 500 Mg Tablet PO 1,500 mg BIDWM TARYN Administration Multi-Ingred Cream/Lotion/Oil/Oint 1 appl 06/29/20 21:00 Mineral Oil/Petrolatum,White 106 Gm Tube TOPICAL BID TARYN Naproxen 500 mg 06/20/20 08:00 06/29/20 16:56 Naproxen 500 Mg Tablet PO 500 mg BIDWM TARYN Administration Patient Own 1 each 06/20/20 09:00 06/29/20 09:10 Medication ( PO 1 each Loxapine 10 Mg ) BID TARYN Administration Patient Own 1 each 06/20/20 21:00 06/28/20 21:11 Medication ( PO 1 each Loxapine 5 Mg) BEDTIME TARYN Administration Patient Own 1 each 06/20/20 09:00 06/29/20 09:07 Medication ( PO 1 each Darifenacin Er 7.5 DAILY TARYN Administration Mg ) Propranolol HCl 20 mg 10/02/20 13:30 06/29/20 13:48 Propranolol Hcl 20 Mg Tablet PO 20 mg TID@0830,1330,2100 TARYN Administration Trolamine Salicylate 1 appl 06/29/20 13:01 Trolamine Salicylate 10 % Cream 85 Gm Tube TOPICAL 07/05/20 23:59 BID PRN Pain, Mild (Pain Scale 1-3) Protocol Allergies Allergies Allergy/AdvReac Type Severity Reaction Status Date / Time haloperidol [HALOPERIDOL] Allergy Intermediate SWELLING Unverified 06/06/20 14:55 carbamazepine [From Tegretol] Allergy Mild RASH, Unverified 06/06/20 14:55 TREMORS lithium [[place]] Allergy Mild RASH, Unverified 06/06/20 14:55 CRAWLING OUT OF SKIN olanzapine [From Zyprexa] Allergy Mild RICHARD Unverified 06/06/20 14:55 quetiapine [From Seroquel] Allergy Mild SWELLING Unverified 06/06/20 14:55 WHOLE BODY, RICHARD lisinopril [LISINOPRIL] Allergy Unknown UNKNOWN Unverified 06/06/20 14:55 topiramate [From TOPAMAX] Allergy Unknown RICHARD, SI Unverified 06/06/20 14:55 trazodone [TRAZODONE] Allergy Unknown SYNCOPE Unverified 06/06/20 14:55 aripiprazole [From ABILIFY] AdvReac Severe EXTREME SI Unverified 06/06/20 14:55 lamotrigine [From Lamictal] AdvReac Mild RICHARD Unverified 06/06/20 14:55 modafinil [From Provigil] AdvReac Mild RICHARD Unverified 06/06/20 14:55 ALL ANTI DEPRESSENTS Allergy Unknown I GO Uncoded 06/06/20 14:55 MANIC All anti-depressants Allergy Unknown manic, rash Uncoded 05/02/20 00:00 From GEODON Allergy Unknown LETHARGY Uncoded 06/06/20 14:55 From WELLBUTRIN AdvReac Unknown AGITATION, Uncoded 06/06/20 14:55 MAVIS Assessment & Plan Assessment & Plan (1) PTSD (post-traumatic stress disorder): Status: Acute Code(s): F43.10 - Post-traumatic stress disorder, unspecified Assessment and Plan: CT medication without change (2) Dementia: Status: Acute Code(s): F03.90 - Unspecified dementia without behavioral disturbance Assessment and Plan: Family support on DC CT aricept trial Greater than 50% of the session was spent on counseling and/or coordination of care Patient educated on: diagnosis and medication risk/benefits Guardian/Caregiver educated on: diagnosis Informed Consent: further education needed Reason for contiued inpatient stay Substantial Risk for: inability to function
[2020-06-29] MEDS: Atorvastatin Calcium 10 MG TABLET PO (20:22)
[2020-06-29] MEDS: Mineral Oil/Petrolatum,White 106 GM Tube 1 APPL TOPICAL (20:29)
[2020-06-30 06:14] LABS: Glucose, Whole Blood 80 mg/dL (60-115)
[2020-06-30 07:12] VITALS: BP 108/67; PULSE 56; TEMP 36
[2020-06-30] MEDS: Fluticasone Propionate 100 MCG BLST.W.DEV 1 PUFF INHALE ×2 (09:03→20:42)
[2020-06-30] MEDS: Donepezil HCl 5 MG TABLET PO (09:04)
[2020-06-30] MEDS: NaPROXEN 500 MG TABLET PO ×2 (09:04→17:11)
[2020-06-30] MEDS: metFORMIN HCl 500 MG TABLET 1500 MG PO ×2 (09:04→17:11)
[2020-06-30 09:05] VITALS: BP 108/67; PULSE 56
[2020-06-30] MEDS: Propranolol HCL 20 MG TABLET PO ×3 (09:05→20:44)
[2020-06-30] MEDS: Aspirin Enteric Coated 81 MG TABLET.DR PO (09:06)
[2020-06-30] MEDS: clonazePAM 0.5 MG TABLET PO ×3 (09:06→20:43)
[2020-06-30] MEDS: Benztropine Mesylate 1 MG TABLET 0.5 MG PO ×2 (09:06→20:42)
[2020-06-30 09:07] VITALS: BP 108/67; PULSE 56
[2020-06-30] MEDS: amLODIPine Besylate 5 MG TABLET PO (09:07)
[2020-06-30] MEDS: Gabapentin 300 MG CAPSULE PO ×2 (09:07→20:44)
[2020-06-30] MEDS: lisinopriL 10 MG TABLET PO (09:07)
[2020-06-30] MEDS: Bacitracin Oint 14 GM TUBE 1 APPL TOPICAL ×3 (09:08→20:58)
[2020-06-30] MEDS: Mineral Oil/Petrolatum,White 106 GM Tube 1 APPL TOPICAL ×2 (09:08→20:58)
[2020-06-30 13:38] VITALS: BP 130/82; PULSE 68
[2020-06-30] MEDS: Acetaminophen 325 MG TABLET 650 MG PO (13:38)
[2020-06-30 17:07] LABS: Glucose, Whole Blood 128 mg/dL (60-115)
[2020-06-30 18:00] VITALS: BP 121/81; PULSE 69; TEMP 36.2
--- NOTE | 2020-06-30 18:32 | P.PNPSI_ITS ---
Subjective Subjective Date of Service: 06/30/20 Reason For Visit: Hospital daily visit Subjective Notes: Conditional Voluntary Interim History: Mouna remains quite confused and she tends to confabulate. She feels much the same as she does when she is at home. She is now anxious about being able to go home. I was able to meet with her youngest daughter with her briefly to review her needs. The family continues to work on this. Mouna reports that she is feeling that she is getting depressed but she is used to having these waves and knows how to ride them through. Medication Compliance: Yes Side effects from medications: No Attending Groups: Yes Review of Systems Acute medical concerns: No Medical Review of Systems: unchanged Review of Systems Review of Systems Yes all other systems are reviewed and are negative Mental Status Exam Mental Status Exam Patient Appearance: Well Grooomed Patient Orientation: Person Level of Consciousness: Awake and Appropriate Patient Behavior: Appropriate, Anxious, Distractible and Confused Mood Description: Calm, Anxious and Blunted Affect Description: Calm, Fearful and Anxious Patient Cognition Impaired: Yes Ability to Follow Directions: Fair Speech Pattern: Appropriate Memory Description: Remote Impaired and Immediate Impaired Hallucinations: Auditory (Quiet) Delusions: Not Present Thought Process: Disoriented Thought Content: positive for [place], negative for Suicidal Ideation and negative for Homicidal Ideation Depressive Symptoms: Increased Anxiety, Loss of Int. in Activity and Unhappiness Judgement: Fair Judgement and Insight: Impaired judgment due to cognitive issues Diagnostics Vital Signs (24Hr): Vital Signs - 24 hr 06/29/20 20:23 06/30/20 07:12 06/30/20 09:05 Temperature 96.8 F Pulse Rate 80 56 56 Blood Pressure 132/83 108/67 108/67 06/30/20 09:07 06/30/20 13:38 Temperature Pulse Rate 56 68 Blood Pressure 108/67 130/82 Body Mass Index 34.2 Labs Results: 06/16/20 15:40 06/28/20 07:38 Labs: Laboratory Results - last 48 hr 06/27/20 06/27/20 06/29/20 09:40 09:40 06:21 POC Glucose 96 Ammonia Vitamin B12 453 Folate 15.2 T.pallidum Ab (EIA) Nonreactive 06/29/20 06/29/20 06/30/20 07:58 16:42 06:09 POC Glucose 134 H 80 Ammonia 36 Vitamin B12 Folate T.pallidum Ab (EIA) 06/30/20 16:51 POC Glucose 128 H Ammonia Vitamin B12 Folate T.pallidum Ab (EIA) Medications Medications Current Medications Generic Name Dose Route Start Last Admin Trade Name Freq PRN Reason Stop Dose Admin Acetaminophen 650 mg 06/20/20 00:01 06/30/20 13:38 Acetaminophen 325 Mg Tablet PO 650 mg Q6H PRN Administration HEADACHE/PAIN.MILD (SCALE 1-3) Al Hydroxide/Mg Hydroxide 30 ml 06/20/20 00:01 Magnesium Hydrox/Alum Hydrox 30 Ml Oral.Susp PO Q6H PRN HEARTBURN/NAUSEA Amlodipine Besylate 5 mg 06/20/20 09:00 06/30/20 09:07 Amlodipine Besylate 5 Mg Tablet PO 5 mg DAILY TARYN Administration Aspirin 81 mg 06/20/20 09:00 06/30/20 09:06 Aspirin Enteric Coated 81 Mg Tablet.Dr PO 81 mg DAILY TARYN Administration Atorvastatin Calcium 10 mg 06/20/20 21:00 06/29/20 20:22 Atorvastatin Calcium 10 Mg Tablet PO 10 mg BEDTIME TARYN Administration Bacitracin 1 appl 06/29/20 10:45 06/30/20 15:55 Bacitracin Oint 14 Gm Tube TOPICAL 1 appl TID TARYN Administration Protocol Benztropine Mesylate 0.5 mg 06/22/20 21:00 06/30/20 09:06 Benztropine Mesylate 1 Mg Tablet PO 0.5 mg BID@0830,2100 TARYN Administration Clonazepam 0.5 mg 06/28/20 09:00 06/30/20 15:58 Clonazepam 0.5 Mg Tablet PO 0.5 mg TID TARYN Administration Donepezil HCl 5 mg 06/27/20 14:30 06/30/20 09:04 Donepezil Hcl 5 Mg Tablet PO 5 mg DAILY TARYN Administration Fluticasone Propionate 1 puff 06/20/20 08:00 06/30/20 09:03 Fluticasone Propionate 100 Mcg Blst.W.Dev INHALE 1 puff RBID TARYN Administration Gabapentin 300 mg 06/20/20 08:30 06/30/20 09:07 Gabapentin 300 Mg Capsule PO 300 mg BID@0830,2100 TARYN Administration Hydroxyzine HCl 25 mg 06/20/20 21:00 Hydroxyzine Hcl 25 Mg Tablet PO BEDTIME MRX1 PRN NIGHT TIME ANXIETY Lisinopril 10 mg 06/20/20 09:00 06/30/20 09:07 Lisinopril 10 Mg Tablet PO 10 mg DAILY TARYN Administration Loperamide HCl 4 mg 06/26/20 20:35 06/27/20 16:15 Loperamide Hcl 2 Mg Capsule PO 2 mg Q4H PRN Administration Diarrhea Magnesium Hydroxide 30 ml 06/20/20 00:01 Milk Of Magnesia 30 Ml Oral.Susp PO Q24H PRN Constipation Meclizine HCl 25 mg 06/20/20 00:01 Meclizine Hcl 25 Mg Tablet PO DAILY PRN DIZZINESS Metformin HCl 1,500 mg 06/20/20 08:00 06/30/20 17:11 Metformin Hcl 500 Mg Tablet PO 1,500 mg BIDWM TARYN Administration Multi-Ingred Cream/Lotion/Oil/Oint 1 appl 06/29/20 21:00 06/30/20 09:08 Mineral Oil/Petrolatum,White 106 Gm Tube TOPICAL 1 appl BID TARYN Administration Naproxen 500 mg 06/20/20 08:00 06/30/20 17:11 Naproxen 500 Mg Tablet PO 500 mg BIDWM TARYN Administration Patient Own 1 each 06/20/20 09:00 06/30/20 09:23 Medication ( PO 1 each Loxapine 10 Mg ) BID TARYN Administration Patient Own 1 each 06/20/20 21:00 06/29/20 20:56 Medication ( PO 1 each Loxapine 5 Mg) BEDTIME TARYN Administration Patient Own 1 each 06/20/20 09:00 06/30/20 09:24 Medication ( PO 1 each Darifenacin Er 7.5 DAILY TARYN Administration Mg ) Propranolol HCl 20 mg 06/21/20 13:30 06/30/20 13:38 Propranolol Hcl 20 Mg Tablet PO 20 mg TID@0830,1330,2100 TARYN Administration Trolamine Salicylate 1 appl 06/29/20 13:01 Trolamine Salicylate 10 % Cream 85 Gm Tube TOPICAL 07/05/20 23:59 BID PRN Pain, Mild (Pain Scale 1-3) Protocol Allergies Allergies Allergy/AdvReac Type Severity Reaction Status Date / Time haloperidol [HALOPERIDOL] Allergy Intermediate SWELLING Unverified 06/06/20 14:55 carbamazepine [From Tegretol] Allergy Mild RASH, Unverified 06/06/20 14:55 TREMORS lithium [[place]] Allergy Mild RASH, Unverified 06/06/20 14:55 CRAWLING OUT OF SKIN olanzapine [From Zyprexa] Allergy Mild RICHARD Unverified 06/06/20 14:55 quetiapine [From Seroquel] Allergy Mild SWELLING Unverified 06/06/20 14:55 WHOLE BODY, RICHARD lisinopril [LISINOPRIL] Allergy Unknown UNKNOWN Unverified 06/06/20 14:55 topiramate [From TOPAMAX] Allergy Unknown RICHARD, SI Unverified 06/06/20 14:55 trazodone [TRAZODONE] Allergy Unknown SYNCOPE Unverified 06/06/20 14:55 aripiprazole [From ABILIFY] AdvReac Severe EXTREME SI Unverified 06/06/20 14:55 lamotrigine [From Lamictal] AdvReac Mild RICHARD Unverified 06/06/20 14:55 modafinil [From Provigil] AdvReac Mild RICHARD Unverified 06/06/20 14:55 ALL ANTI DEPRESSENTS Allergy Unknown I GO Uncoded 06/06/20 14:55 MANIC All anti-depressants Allergy Unknown manic, rash Uncoded 05/02/20 00:00 From GEODON Allergy Unknown LETHARGY Uncoded 06/06/20 14:55 From WELLBUTRIN AdvReac Unknown AGITATION, Uncoded 06/06/20 14:55 MAVIS Assessment & Plan Assessment & Plan (1) Dementia: Status: Acute Code(s): F03.90 - Unspecified dementia without behavioral disturbance Assessment and Plan: CT to work on safe DC with sufficient support. (2) PTSD (post-traumatic stress disorder): Status: Acute Code(s): F43.10 - Post-traumatic stress disorder, unspecified Assessment and Plan: CT medication without change Greater than 50% of the session was spent on counseling and/or coordination of care
[2020-06-30 20:44] VITALS: BP 121/81; PULSE 69
[2020-06-30] MEDS: Atorvastatin Calcium 10 MG TABLET PO (20:44)
[2020-07-01 06:00] VITALS: BP 137/64; PULSE 75; RESP 18; TEMP 36.7
[2020-07-01 06:36] LABS: Glucose, Whole Blood 137 mg/dL (60-115)
[2020-07-01] MEDS: NaPROXEN 500 MG TABLET PO ×2 (08:43→17:19)
[2020-07-01] MEDS: Donepezil HCl 5 MG TABLET PO (08:43)
[2020-07-01] MEDS: Gabapentin 300 MG CAPSULE PO ×2 (08:43→20:44)
[2020-07-01] MEDS: Aspirin Enteric Coated 81 MG TABLET.DR PO (08:44)
[2020-07-01] MEDS: Benztropine Mesylate 1 MG TABLET 0.5 MG PO ×2 (08:44→20:42)
[2020-07-01] MEDS: clonazePAM 0.5 MG TABLET PO ×3 (08:44→20:46)
[2020-07-01 08:46] VITALS: BP 137/64; PULSE 75
[2020-07-01] MEDS: amLODIPine Besylate 5 MG TABLET PO (08:46)
[2020-07-01 08:47] VITALS: BP 137/64; PULSE 75
[2020-07-01] MEDS: Propranolol HCL 20 MG TABLET PO ×3 (08:47→20:44)
[2020-07-01] MEDS: lisinopriL 10 MG TABLET PO (08:47)
[2020-07-01] MEDS: Bacitracin Oint 14 GM TUBE 1 APPL TOPICAL ×3 (08:48→21:51)
[2020-07-01] MEDS: Fluticasone Propionate 100 MCG BLST.W.DEV 1 PUFF INHALE ×2 (08:48→21:55)
[2020-07-01] MEDS: Trolamine Salicylate 10 % Cream 85 GM TUBE 1 APPL TOPICAL (08:48)
[2020-07-01] MEDS: Mineral Oil/Petrolatum,White 106 GM Tube 1 APPL TOPICAL ×2 (08:59→21:51)
[2020-07-01] MEDS: metFORMIN HCl 500 MG TABLET 1500 MG PO ×2 (09:03→17:19)
[2020-07-01] MEDS: Loperamide HCl 2 MG CAPSULE 4 MG PO (11:43)
[2020-07-01 13:09] VITALS: BP 137/85; PULSE 67
[2020-07-01 17:12] LABS: Glucose, Whole Blood 151 mg/dL (60-115)
[2020-07-01 20:44] VITALS: BP 142/79; PULSE 60
[2020-07-01] MEDS: Atorvastatin Calcium 10 MG TABLET PO (20:44)
--- NOTE | 2020-07-01 21:58 | HO.PSYCHPN ---
Subjective Subjective Reason For Visit: Hospital daily visit Interim History: patient was withdrawn and somewhat dysphoric. Complained of vertigo. Knows where he she is unclear on year and month. worried about discharge Mental Status Exam Mental Status Exam Patient Appearance: Well Grooomed Patient Orientation: Person Level of Consciousness: Awake and Appropriate Patient Behavior: Appropriate, Anxious, Distractible and Confused Mood Description: Calm, Anxious and Blunted Affect Description: Calm, Fearful and Anxious Patient Cognition Impaired: Yes Ability to Follow Directions: Fair Speech Pattern: Appropriate Memory Description: Remote Impaired and Immediate Impaired Diagnostics Vital Signs (24Hr): Vital Signs - 24 hr 07/01/20 06:00 07/01/20 08:46 07/01/20 08:47 Temperature 98.1 F Pulse Rate 75 75 75 Respiratory Rate 18 Blood Pressure 137/64 137/64 137/64 07/01/20 13:09 07/01/20 20:44 Temperature Pulse Rate 67 60 Respiratory Rate Blood Pressure 137/85 142/79 H Body Mass Index 34.2 Labs Results: 06/16/20 15:40 06/28/20 07:38 Labs: Laboratory Results - last 48 hr 06/30/20 06/30/20 07/01/20 06:09 16:51 06:26 POC Glucose 80 128 H 137 H 07/01/20 17:07 POC Glucose 151 H Medications Medications Current Medications Generic Name Dose Route Start Last Admin Trade Name Janiq PRN Reason Stop Dose Admin Acetaminophen 650 mg 06/20/20 00:01 06/30/20 13:38 Acetaminophen 325 Mg Tablet PO 650 mg Q6H PRN Administration HEADACHE/PAIN.MILD (SCALE 1-3) Al Hydroxide/Mg Hydroxide 30 ml 06/20/20 00:01 Magnesium Hydrox/Alum Hydrox 30 Ml Oral.Susp PO Q6H PRN HEARTBURN/NAUSEA Amlodipine Besylate 5 mg 06/20/20 09:00 07/01/20 08:46 Amlodipine Besylate 5 Mg Tablet PO 5 mg DAILY TARYN Administration Aspirin 81 mg 06/20/20 09:00 07/01/20 08:44 Aspirin Enteric Coated 81 Mg Tablet.Dr PO 81 mg DAILY TARYN Administration Atorvastatin Calcium 10 mg 06/20/20 21:00 07/01/20 20:44 Atorvastatin Calcium 10 Mg Tablet PO 10 mg BEDTIME TARYN Administration Bacitracin 1 appl 06/29/20 10:45 07/01/20 21:51 Bacitracin Oint 14 Gm Tube TOPICAL 1 appl TID TARYN Administration Protocol Benztropine Mesylate 0.5 mg 06/22/20 21:00 07/01/20 20:42 Benztropine Mesylate 1 Mg Tablet PO 0.5 mg BID@829,2099 TARYN Administration Clonazepam 0.5 mg 06/28/20 09:00 07/01/20 20:46 Clonazepam 0.5 Mg Tablet PO 0.5 mg TID TARYN Administration Donepezil HCl 5 mg 06/27/20 14:30 07/01/20 08:43 Donepezil Hcl 5 Mg Tablet PO 5 mg DAILY TARYN Administration Fluticasone Propionate 1 puff 06/20/20 08:00 07/01/20 21:55 Fluticasone Propionate 100 Mcg Blst.W.Dev INHALE 1 puff RBID TARYN Administration Gabapentin 300 mg 06/20/20 08:30 07/01/20 20:44 Gabapentin 300 Mg Capsule PO 300 mg BID@829,2099 TARYN Administration Hydroxyzine HCl 25 mg 06/20/20 21:00 Hydroxyzine Hcl 25 Mg Tablet PO BEDTIME MRX1 PRN NIGHT TIME ANXIETY Lisinopril 10 mg 06/20/20 09:00 07/01/20 08:47 Lisinopril 10 Mg Tablet PO 10 mg DAILY TARYN Administration Loperamide HCl 4 mg 06/26/20 20:35 06/27/20 16:15 Loperamide Hcl 2 Mg Capsule PO 2 mg Q4H PRN Administration Diarrhea Magnesium Hydroxide 30 ml 06/20/20 00:01 Milk Of Magnesia 30 Ml Oral.Susp PO Q24H PRN Constipation Meclizine HCl 25 mg 06/20/20 00:01 Meclizine Hcl 25 Mg Tablet PO DAILY PRN DIZZINESS Metformin HCl 1,500 mg 06/20/20 08:00 07/01/20 17:19 Metformin Hcl 500 Mg Tablet PO 1,500 mg BIDWM TARYN Administration Multi-Ingred Cream/Lotion/Oil/Oint 1 appl 06/29/20 21:00 07/01/20 21:51 Mineral Oil/Petrolatum,White 106 Gm Tube TOPICAL 1 appl BID TARYN Administration Naproxen 500 mg 06/20/20 08:00 07/01/20 17:19 Naproxen 500 Mg Tablet PO 500 mg BIDWM TARYN Administration Patient Own 1 each 10/01/20 09:00 07/01/20 21:50 Medication ( PO 1 each Loxapine 10 Mg ) BID TARYN Administration Patient Own 1 each 06/20/20 21:00 07/01/20 21:51 Medication ( PO 1 each Loxapine 5 Mg) BEDTIME TARYN Administration Patient Own 1 each 06/20/20 09:00 07/01/20 08:49 Medication ( PO 1 each Darifenacin Er 7.5 DAILY TARYN Administration Mg ) Propranolol HCl 20 mg 06/21/20 13:30 07/01/20 20:44 Propranolol Hcl 20 Mg Tablet PO 20 mg TID@0830,1330,2100 TARYN Administration Trolamine Salicylate 1 appl 06/29/20 13:01 07/01/20 08:48 Trolamine Salicylate 10 % Cream 85 Gm Tube TOPICAL 07/05/20 23:59 1 appl BID PRN Administration Pain, Mild (Pain Scale 1-3) Protocol Allergies Allergies Allergy/AdvReac Type Severity Reaction Status Date / Time haloperidol [HALOPERIDOL] Allergy Intermediate SWELLING Unverified 06/06/20 14:55 carbamazepine [From Tegretol] Allergy Mild RASH, Unverified 06/06/20 14:55 TREMORS lithium [[place] [address]] Allergy Mild RASH, Unverified 06/06/20 14:55 CRAWLING OUT OF SKIN olanzapine [From Zyprexa] Allergy Mild RICHARD Unverified 06/06/20 14:55 quetiapine [From Seroquel] Allergy Mild SWELLING Unverified 06/06/20 14:55 WHOLE BODY, RICHARD lisinopril [LISINOPRIL] Allergy Unknown UNKNOWN Unverified 06/06/20 14:55 topiramate [From TOPAMAX] Allergy Unknown RICHARD, SI Unverified 06/06/20 14:55 trazodone [TRAZODONE] Allergy Unknown SYNCOPE Unverified 06/06/20 14:55 aripiprazole [From ABILIFY] AdvReac Severe EXTREME SI Unverified 06/06/20 14:55 lamotrigine [From Lamictal] AdvReac Mild RICHARD Unverified 06/06/20 14:55 modafinil [From Provigil] AdvReac Mild RICHARD Unverified 06/06/20 14:55 ALL ANTI DEPRESSENTS Allergy Unknown I GO Uncoded 06/06/20 14:55 MANIC All anti-depressants Allergy Unknown manic, rash Uncoded 05/02/20 00:00 From GEODON Allergy Unknown LETHARGY Uncoded 06/06/20 14:55 From WELLBUTRIN AdvReac Unknown AGITATION, Uncoded 06/06/20 14:55 MAVIS Assessment & Plan Assessment & Plan (1) Dementia: Status: Acute Code(s): F03.90 - Unspecified dementia without behavioral disturbance Assessment and Plan: CT to work on safe DC with sufficient support. this continues to be true complained of vertigo later felt better no orthostatic changes (2) PTSD (post-traumatic stress disorder): Status: Acute Code(s): F43.10 - Post-traumatic stress disorder, unspecified Assessment and Plan: CT medication without change Greater than 50% of the session was spent on counseling and/or coordination of care
[2020-07-01 22:00] VITALS: BP 142/72; PULSE 60; TEMP 36.6
[2020-07-02 06:11] LABS: Glucose, Whole Blood 100 mg/dL (60-115)
[2020-07-02 06:13] VITALS: BP 118/65; PULSE 56; RESP 18; TEMP 36.4; O2SAT 94
[2020-07-02 08:52] VITALS: BP 118/65; PULSE 56
[2020-07-02] MEDS: Gabapentin 300 MG CAPSULE PO ×2 (08:52→21:49)
[2020-07-02] MEDS: Donepezil HCl 5 MG TABLET PO (08:52)
[2020-07-02] MEDS: Aspirin Enteric Coated 81 MG TABLET.DR PO (08:52)
[2020-07-02] MEDS: metFORMIN HCl 500 MG TABLET 1500 MG PO ×2 (08:52→17:34)
[2020-07-02] MEDS: NaPROXEN 500 MG TABLET PO ×2 (08:52→17:34)
[2020-07-02] MEDS: amLODIPine Besylate 5 MG TABLET PO (08:52)
[2020-07-02 08:53] VITALS: BP 118/65; PULSE 56
[2020-07-02] MEDS: clonazePAM 0.5 MG TABLET PO ×3 (08:53→21:50)
[2020-07-02] MEDS: Propranolol HCL 20 MG TABLET PO ×3 (08:53→21:49)
[2020-07-02] MEDS: Benztropine Mesylate 1 MG TABLET 0.5 MG PO ×2 (08:53→21:50)
[2020-07-02] MEDS: lisinopriL 10 MG TABLET PO (08:54)
[2020-07-02] MEDS: Mineral Oil/Petrolatum,White 106 GM Tube 1 APPL TOPICAL (08:57)
[2020-07-02] MEDS: Bacitracin Oint 14 GM TUBE 1 APPL TOPICAL ×2 (08:57→14:20)
--- NOTE | 2020-07-02 09:28 | HO.PSYCHPN ---
Subjective Subjective Date of Service: 07/02/20 Reason For Visit: Hospital daily visit Subjective Notes: Conditional Voluntary and Other Interim History: Mouna has been a little less depressed. That said she is in bed, and is struggling to get up. She is looking forward to going home SW is coordinating with family to set up DC later in the week once there is sufficient support at home. Medication Compliance: Yes Side effects from medications: No Attending Groups: Yes Mental Status Exam Mental Status Exam Patient Appearance: Well Grooomed Patient Orientation: Person Level of Consciousness: Awake and Appropriate Patient Behavior: Appropriate, Anxious, Distractible and Confused Mood Description: Calm, Anxious and Blunted Affect Description: Calm, Fearful and Anxious Patient Cognition Impaired: Yes Ability to Follow Directions: Fair Speech Pattern: Appropriate Memory Description: Remote Impaired and Immediate Impaired Hallucinations: Auditory (Quiet) Delusions: Not Present Thought Process: Goal Oriented and Slowed Thinking Thought Content: positive for [place], negative for Suicidal Ideation and negative for Homicidal Ideation Depressive Symptoms: Loss of Int. in Activity and Feelings of Guilt Diagnostics Vital Signs (24Hr): Vital Signs - 24 hr 07/01/20 13:09 07/01/20 20:44 07/01/20 22:00 Temperature 97.9 F Pulse Rate 67 60 60 Respiratory Rate Blood Pressure 137/85 142/79 H 142/72 H Pulse Oximetry 07/02/20 06:13 07/02/20 08:52 07/02/20 08:53 Temperature 97.6 F Pulse Rate 56 56 56 Respiratory Rate 18 Blood Pressure 118/65 118/65 118/65 Pulse Oximetry 94 Body Mass Index 34.2 Labs Results: 06/16/20 15:40 06/28/20 07:38 Labs: Laboratory Results - last 48 hr 06/30/20 07/01/20 07/01/20 16:51 06:26 17:07 POC Glucose 128 H 137 H 151 H 07/02/20 06:01 POC Glucose 100 Medications Medications Current Medications Generic Name Dose Route Start Last Admin Trade Name Freq PRN Reason Stop Dose Admin Acetaminophen 650 mg 06/20/20 00:01 06/30/20 13:38 Acetaminophen 325 Mg Tablet PO 650 mg Q6H PRN Administration HEADACHE/PAIN.MILD (SCALE 1-3) Al Hydroxide/Mg Hydroxide 30 ml 06/20/20 00:01 Magnesium Hydrox/Alum Hydrox 30 Ml Oral.Susp PO Q6H PRN HEARTBURN/NAUSEA Amlodipine Besylate 5 mg 06/20/20 09:00 07/02/20 08:52 Amlodipine Besylate 5 Mg Tablet PO 5 mg DAILY TARYN Administration Aspirin 81 mg 06/20/20 09:00 07/02/20 08:52 Aspirin Enteric Coated 81 Mg Tablet.Dr PO 81 mg DAILY TARYN Administration Atorvastatin Calcium 10 mg 06/20/20 21:00 07/01/20 20:44 Atorvastatin Calcium 10 Mg Tablet PO 10 mg BEDTIME TARYN Administration Bacitracin 1 appl 06/29/20 10:45 07/02/20 08:57 Bacitracin Oint 14 Gm Tube TOPICAL 1 appl TID TARYN Administration Protocol Benztropine Mesylate 0.5 mg 06/22/20 21:00 07/02/20 08:53 Benztropine Mesylate 1 Mg Tablet PO 0.5 mg BID@0830,2100 TARYN Administration Clonazepam 0.5 mg 06/28/20 09:00 07/02/20 08:53 Clonazepam 0.5 Mg Tablet PO 0.5 mg TID TARYN Administration Donepezil HCl 5 mg 06/27/20 14:30 07/02/20 08:52 Donepezil Hcl 5 Mg Tablet PO 5 mg DAILY TARYN Administration Fluticasone Propionate 1 puff 06/20/20 08:00 07/01/20 21:55 Fluticasone Propionate 100 Mcg Blst.W.Dev INHALE 1 puff RBID TARYN Administration Gabapentin 300 mg 06/20/20 08:30 07/02/20 08:52 Gabapentin 300 Mg Capsule PO 300 mg BID@0830,2100 TARYN Administration Hydroxyzine HCl 25 mg 06/20/20 21:00 Hydroxyzine Hcl 25 Mg Tablet PO BEDTIME MRX1 PRN NIGHT TIME ANXIETY Lisinopril 10 mg 06/20/20 09:00 07/02/20 08:54 Lisinopril 10 Mg Tablet PO 10 mg DAILY TARYN Administration Loperamide HCl 4 mg 06/26/20 20:35 06/27/20 16:15 Loperamide Hcl 2 Mg Capsule PO 2 mg Q4H PRN Administration Diarrhea Magnesium Hydroxide 30 ml 06/20/20 00:01 Milk Of Magnesia 30 Ml Oral.Susp PO Q24H PRN Constipation Meclizine HCl 25 mg 06/20/20 00:01 Meclizine Hcl 25 Mg Tablet PO DAILY PRN DIZZINESS Metformin HCl 1,500 mg 06/20/20 08:00 07/02/20 08:52 Metformin Hcl 500 Mg Tablet PO 1,500 mg BIDWM TARYN Administration Multi-Ingred Cream/Lotion/Oil/Oint 1 appl 06/29/20 21:00 07/02/20 08:57 Mineral Oil/Petrolatum,White 106 Gm Tube TOPICAL 1 appl BID TARYN Administration Naproxen 500 mg 06/20/20 08:00 07/02/20 08:52 Naproxen 500 Mg Tablet PO 500 mg BIDWM TARYN Administration Patient Own 1 each 06/20/20 09:00 07/02/20 08:55 Medication ( PO 1 each Loxapine 10 Mg ) BID TARYN Administration Patient Own 1 each 06/20/20 21:00 07/01/20 21:51 Medication ( PO 1 each Loxapine 5 Mg) BEDTIME TARYN Administration Patient Own 1 each 06/20/20 09:00 07/02/20 09:02 Medication ( PO 1 each Darifenacin Er 7.5 DAILY TARYN Administration Mg ) Propranolol HCl 20 mg 06/21/20 13:30 07/02/20 08:53 Propranolol Hcl 20 Mg Tablet PO 20 mg TID@0830,1330,2100 TARYN Administration Trolamine Salicylate 1 appl 06/29/20 13:01 07/01/20 08:48 Trolamine Salicylate 10 % Cream 85 Gm Tube TOPICAL 07/05/20 23:59 1 appl BID PRN Administration Pain, Mild (Pain Scale 1-3) Protocol Allergies Allergies Allergy/AdvReac Type Severity Reaction Status Date / Time haloperidol [HALOPERIDOL] Allergy Intermediate SWELLING Unverified 06/06/20 14:55 carbamazepine [From Tegretol] Allergy Mild RASH, Unverified 06/06/20 14:55 TREMORS lithium [[place]] Allergy Mild RASH, Unverified 06/06/20 14:55 CRAWLING OUT OF SKIN olanzapine [From Zyprexa] Allergy Mild RICHARD Unverified 06/06/20 14:55 quetiapine [From Seroquel] Allergy Mild SWELLING Unverified 06/06/20 14:55 WHOLE BODY, RICHARD lisinopril [LISINOPRIL] Allergy Unknown UNKNOWN Unverified 06/06/20 14:55 topiramate [From TOPAMAX] Allergy Unknown RICHARD, SI Unverified 06/06/20 14:55 trazodone [TRAZODONE] Allergy Unknown SYNCOPE Unverified 06/06/20 14:55 aripiprazole [From ABILIFY] AdvReac Severe EXTREME SI Unverified 06/06/20 14:55 lamotrigine [From Lamictal] AdvReac Mild RICHARD Unverified 06/06/20 14:55 modafinil [From Provigil] AdvReac Mild RICHARD Unverified 06/06/20 14:55 ALL ANTI DEPRESSENTS Allergy Unknown I GO Uncoded 06/06/20 14:55 MANIC All anti-depressants Allergy Unknown manic, rash Uncoded 05/02/20 00:00 From GEODON Allergy Unknown LETHARGY Uncoded 06/06/20 14:55 From WELLBUTRIN AdvReac Unknown AGITATION, Uncoded 06/06/20 14:55 MAVIS Assessment & Plan Assessment & Plan (1) Dementia: Status: Acute Code(s): F03.90 - Unspecified dementia without behavioral disturbance (2) PTSD (post-traumatic stress disorder): Status: Acute Code(s): F43.10 - Post-traumatic stress disorder, unspecified Assessment and Plan: Mouna is approaching baseline No medication changes are warranted CT 15 minute checks ANNETTE and MD to talk with Shasta and another family member tomorrow morning. Greater than 50% of the session was spent on counseling and/or coordination of care Patient educated on: diagnosis and medication risk/benefits Informed Consent: further education needed Reason for contiued inpatient stay Substantial Risk for: inability to function and rapid decompensation
[2020-07-02] MEDS: Fluticasone Propionate 100 MCG BLST.W.DEV 1 PUFF INHALE ×2 (09:53→21:46)
[2020-07-02 14:16] VITALS: BP 109/60; PULSE 65
[2020-07-02 16:53] LABS: Glucose, Whole Blood 116 mg/dL (60-115)
[2020-07-02 21:49] VITALS: BP 148/88; PULSE 68
[2020-07-02] MEDS: Atorvastatin Calcium 10 MG TABLET PO (21:51)
[2020-07-02 22:00] VITALS: BP 107/66; PULSE 68; TEMP 36.1
--- NOTE | 2020-07-03 | ECG_ITS ---
Test Reason : CHECK QTC Blood Pressure : / mmHG Vent. Rate : 066 BPM Atrial Rate : 066 BPM P-R Int : 206 ms QRS Dur : 102 ms QT Int : 442 ms P-R-T Axes : 036 -47 041 degrees QTc Int : 463 ms Normal sinus rhythm Left anterior fascicular block Abnormal ECG When compared with ECG of 16-JUN-2020 16:07, Nonspecific T wave abnormality, improved in Lateral leads Referred By: Jacque Ovalle Electronically Signed By:BOB AZUL MD
[2020-07-03 06:00] VITALS: BP 125/72; PULSE 58; RESP 18; TEMP 35.7; O2SAT 97
[2020-07-03 06:15] LABS: Glucose, Whole Blood 89 mg/dL (60-115)
[2020-07-03 08:15] VITALS: BP 125/72; PULSE 58
[2020-07-03] MEDS: lisinopriL 10 MG TABLET PO (08:15)
[2020-07-03] MEDS: Gabapentin 300 MG CAPSULE PO ×2 (08:15→20:31)
[2020-07-03] MEDS: NaPROXEN 500 MG TABLET PO ×2 (08:15→17:40)
[2020-07-03] MEDS: Donepezil HCl 5 MG TABLET PO (08:16)
[2020-07-03] MEDS: metFORMIN HCl 500 MG TABLET 1500 MG PO ×2 (08:16→17:40)
[2020-07-03] MEDS: Aspirin Enteric Coated 81 MG TABLET.DR PO (08:16)
[2020-07-03] MEDS: amLODIPine Besylate 5 MG TABLET PO (08:16)
[2020-07-03] MEDS: Benztropine Mesylate 1 MG TABLET 0.5 MG PO ×2 (08:16→20:31)
[2020-07-03] MEDS: clonazePAM 0.5 MG TABLET PO ×3 (08:16→20:40)
[2020-07-03] MEDS: Fluticasone Propionate 100 MCG BLST.W.DEV 1 PUFF INHALE ×2 (08:16→20:25)
[2020-07-03] MEDS: Propranolol HCL 20 MG TABLET PO ×3 (08:16→20:34)
--- NOTE | 2020-07-03 09:25 | P.PNPSI_ITS ---
Subjective Subjective Date of Service: 07/02/20 Reason For Visit: Hospital daily visit Subjective Notes: Conditional Voluntary and Other Interim History: Mouna has been a little less depressed. That said she has been up and about on the unit more today. She is aware of her DC tomorrow. ANNETTE and this commercial insurance underwriter spoke with Mouna's sister, and her two daughters to review the diagnosis of dementia, the prognosis, the treatment and the supports. ANNETTE will make a referral to [facility]. Medication Compliance: Yes Side effects from medications: No Attending Groups: Yes Review of Systems Acute medical concerns: No Medical Review of Systems: unchanged Mental Status Exam Mental Status Exam Patient Appearance: Well Grooomed Patient Orientation: Person Level of Consciousness: Awake and Appropriate Patient Behavior: Appropriate, Anxious, Distractible and Confused Mood Description: Calm, Anxious and Blunted Affect Description: Calm, Fearful and Anxious Patient Cognition Impaired: Yes Ability to Follow Directions: Fair Speech Pattern: Appropriate Memory Description: Remote Impaired and Immediate Impaired Hallucinations: Auditory (Quiet) Delusions: Not Present Thought Process: Goal Oriented and Slowed Thinking Thought Content: positive for Circumstantial, negative for Suicidal Ideation and negative for Homicidal Ideation Depressive Symptoms: Loss of Int. in Activity and Feelings of Guilt Judgement: Fair Diagnostics Vital Signs (24Hr): Vital Signs - 24 hr 07/02/20 14:16 07/02/20 21:49 07/02/20 22:00 Temperature 96.9 F Pulse Rate 65 68 68 Respiratory Rate Blood Pressure 109/60 148/88 H 107/66 Pulse Oximetry 07/03/20 06:00 07/03/20 08:15 Temperature 96.3 F L Pulse Rate 58 58 Respiratory Rate 18 Blood Pressure 125/72 125/72 Pulse Oximetry 97 Body Mass Index 34.2 Labs Results: 06/16/20 15:40 06/28/20 07:38 Labs: Laboratory Results - last 48 hr 07/01/20 07/02/20 07/02/20 17:07 06:01 16:49 POC Glucose 151 H 100 116 H 07/03/20 06:11 POC Glucose 89 Medications Medications Current Medications Generic Name Dose Route Start Last Admin Trade Name Freq PRN Reason Stop Dose Admin Acetaminophen 650 mg 06/20/20 00:01 06/30/20 13:38 Acetaminophen 325 Mg Tablet PO 650 mg Q6H PRN Administration HEADACHE/PAIN.MILD (SCALE 1-3) Al Hydroxide/Mg Hydroxide 30 ml 06/20/20 00:01 Magnesium Hydrox/Alum Hydrox 30 Ml Oral.Susp PO Q6H PRN HEARTBURN/NAUSEA Amlodipine Besylate 5 mg 06/20/20 09:00 07/03/20 08:16 Amlodipine Besylate 5 Mg Tablet PO 5 mg DAILY TARYN Administration Aspirin 81 mg 06/20/20 09:00 07/03/20 08:16 Aspirin Enteric Coated 81 Mg Tablet.Dr PO 81 mg DAILY TARYN Administration Atorvastatin Calcium 10 mg 06/20/20 21:00 07/02/20 21:51 Atorvastatin Calcium 10 Mg Tablet PO 10 mg BEDTIME TARYN Administration Bacitracin 1 appl 06/29/20 10:45 07/03/20 08:17 Bacitracin Oint 14 Gm Tube TOPICAL Not Given TID [facility] Protocol Benztropine Mesylate 0.5 mg 06/22/20 21:00 07/03/20 08:16 Benztropine Mesylate 1 Mg Tablet PO 0.5 mg BID@0830,2100 TARYN Administration Clonazepam 0.5 mg 06/28/20 09:00 07/03/20 08:16 Clonazepam 0.5 Mg Tablet PO 0.5 mg TID TARYN Administration Donepezil HCl 5 mg 06/27/20 14:30 07/03/20 08:16 Donepezil Hcl 5 Mg Tablet PO 5 mg DAILY TARYN Administration Fluticasone Propionate 1 puff 06/20/20 08:00 07/03/20 08:16 Fluticasone Propionate 100 Mcg Blst.W.Dev INHALE 1 puff RBID TARYN Administration Gabapentin 300 mg 06/20/20 08:30 07/03/20 08:15 Gabapentin 300 Mg Capsule PO 300 mg BID@0830,2100 TARYN Administration Hydroxyzine HCl 25 mg 06/20/20 21:00 Hydroxyzine Hcl 25 Mg Tablet PO BEDTIME MRX1 PRN NIGHT TIME ANXIETY Lisinopril 10 mg 06/20/20 09:00 07/03/20 08:15 Lisinopril 10 Mg Tablet PO 10 mg DAILY TARYN Administration Loperamide HCl 4 mg 06/26/20 20:35 06/27/20 16:15 Loperamide Hcl 2 Mg Capsule PO 2 mg Q4H PRN Administration Diarrhea Magnesium Hydroxide 30 ml 06/20/20 00:01 Milk Of Magnesia 30 Ml Oral.Susp PO Q24H PRN Constipation Meclizine HCl 25 mg 06/20/20 00:01 Meclizine Hcl 25 Mg Tablet PO DAILY PRN DIZZINESS Metformin HCl 1,500 mg 06/20/20 08:00 07/03/20 08:16 Metformin Hcl 500 Mg Tablet PO 1,500 mg BIDWM TARYN Administration Multi-Ingred Cream/Lotion/Oil/Oint 1 appl 06/29/20 21:00 07/03/20 08:17 Mineral Oil/Petrolatum,White 106 Gm Tube TOPICAL Not Given BID TARYN Naproxen 500 mg 06/20/20 08:00 07/03/20 08:15 Naproxen 500 Mg Tablet PO 500 mg BIDWM TARYN Administration Patient Own 1 each 06/20/20 09:00 07/03/20 08:17 Medication ( PO 1 each Loxapine 10 Mg ) BID TARYN Administration Patient Own 1 each 06/20/20 21:00 07/02/20 21:49 Medication ( PO 1 each Loxapine 5 Mg) BEDTIME TARYN Administration Patient Own 1 each 06/20/20 09:00 07/03/20 08:17 Medication ( PO 1 each Darifenacin Er 7.5 DAILY TARYN Administration Mg ) Propranolol HCl 20 mg 06/21/20 13:30 07/03/20 08:16 Propranolol Hcl 20 Mg Tablet PO 20 mg TID@0830,1330,2100 TARYN Administration Trolamine Salicylate 1 appl 06/29/20 13:01 07/01/20 08:48 Trolamine Salicylate 10 % Cream 85 Gm Tube TOPICAL 07/05/20 23:59 1 appl BID PRN Administration Pain, Mild (Pain Scale 1-3) Protocol Allergies Allergies Allergy/AdvReac Type Severity Reaction Status Date / Time haloperidol [HALOPERIDOL] Allergy Intermediate SWELLING Unverified 06/06/20 14:55 carbamazepine [From Tegretol] Allergy Mild RASH, Unverified 06/06/20 14:55 TREMORS lithium [[place]] Allergy Mild RASH, Unverified 06/06/20 14:55 CRAWLING OUT OF SKIN olanzapine [From Zyprexa] Allergy Mild RICHARD Unverified 06/06/20 14:55 quetiapine [From Seroquel] Allergy Mild SWELLING Unverified 06/06/20 14:55 WHOLE BODY, RICHARD lisinopril [LISINOPRIL] Allergy Unknown UNKNOWN Unverified 06/06/20 14:55 topiramate [From TOPAMAX] Allergy Unknown RICHARD, SI Unverified 06/06/20 14:55 trazodone [TRAZODONE] Allergy Unknown SYNCOPE Unverified 06/06/20 14:55 aripiprazole [From ABILIFY] AdvReac Severe EXTREME SI Unverified 06/06/20 14:55 lamotrigine [From Lamictal] AdvReac Mild RICHARD Unverified 06/06/20 14:55 modafinil [From Provigil] AdvReac Mild RICHARD Unverified 06/06/20 14:55 ALL ANTI DEPRESSENTS Allergy Unknown I GO Uncoded 06/06/20 14:55 MANIC All anti-depressants Allergy Unknown manic, rash Uncoded 05/02/20 00:00 From GEODON Allergy Unknown LETHARGY Uncoded 06/06/20 14:55 From WELLBUTRIN AdvReac Unknown AGITATION, Uncoded 06/06/20 14:55 MAVIS Assessment & Plan Assessment & Plan (1) Dementia: Status: Acute Code(s): F03.90 - Unspecified dementia without behavioral disturbance (2) PTSD (post-traumatic stress disorder): Status: Acute Code(s): F43.10 - Post-traumatic stress disorder, unspecified Assessment and Plan: CT current medications Anticipate DC tomorrow Greater than 50% of the session was spent on counseling and/or coordination of care Patient educated on: diagnosis and medication risk/benefits Guardian/Caregiver educated on: diagnosis and medication risk/benefits Informed Consent: further education needed Reason for contiued inpatient stay Substantial Risk for: med/psych decompensation
[2020-07-03 14:19] VITALS: BP 112/66; PULSE 66
[2020-07-03 17:23] LABS: Glucose, Whole Blood 122 mg/dL (60-115)
[2020-07-03 18:00] VITALS: BP 137/76; TEMP 36.2
[2020-07-03 20:34] VITALS: BP 128/74; PULSE 71
[2020-07-03] MEDS: Atorvastatin Calcium 10 MG TABLET PO (20:36)
[2020-07-04 06:16] LABS: Glucose, Whole Blood 104 mg/dL (60-115)
[2020-07-04] MEDS: Mineral Oil/Petrolatum,White 106 GM Tube 1 APPL TOPICAL (09:19)
[2020-07-04] MEDS: Trolamine Salicylate 10 % Cream 85 GM TUBE 1 APPL TOPICAL (09:19)
[2020-07-04] MEDS: Fluticasone Propionate 100 MCG BLST.W.DEV 1 PUFF INHALE (09:20)
[2020-07-04] MEDS: Bacitracin Oint 14 GM TUBE 1 APPL TOPICAL (09:21)
[2020-07-04] MEDS: metFORMIN HCl 500 MG TABLET 1500 MG PO (09:24)
[2020-07-04] MEDS: Aspirin Enteric Coated 81 MG TABLET.DR PO (09:25)
[2020-07-04] MEDS: NaPROXEN 500 MG TABLET PO (09:25)
[2020-07-04] MEDS: Benztropine Mesylate 1 MG TABLET 0.5 MG PO (09:26)
[2020-07-04] MEDS: clonazePAM 0.5 MG TABLET PO ×2 (09:27→15:14)
[2020-07-04] MEDS: Donepezil HCl 5 MG TABLET 10 MG PO (09:28)
[2020-07-04 09:33] VITALS: BP 169/92; PULSE 69
[2020-07-04] MEDS: lisinopriL 10 MG TABLET PO (09:33)
[2020-07-04] MEDS: Propranolol HCL 20 MG TABLET PO ×2 (09:33→13:53)
[2020-07-04 09:34] VITALS: BP 169/92; PULSE 69
[2020-07-04] MEDS: amLODIPine Besylate 5 MG TABLET PO (09:34)
[2020-07-04] MEDS: Gabapentin 300 MG CAPSULE PO (09:37)
[2020-07-04] MEDS: Loperamide HCl 2 MG CAPSULE 4 MG PO (11:43)
[2020-07-04 13:53] VITALS: BP 102/70; PULSE 77
--- NOTE | 2020-07-04 14:01 | P.DS_ITS ---
DS: Providers Provider Date of admission: 06/17/20 12:39 Primary care physician: Kira Craven MD Attending physician on admission: Jacque Ovalle Consults: 06/21/20 19:13 Consult to Neurology Routine Consulting Provider: Jeny Dasilva Reason for consultation: Cognitive decline. R/O dementia Has provider been notified: No Attending physician on discharge: Jacque Ovalle Anticipated date of discharge: 07/04/20 DS: Diagnosis Discharge Diagnosis (1) Dementia: Status: Acute (2) PTSD (post-traumatic stress disorder): Status: Acute (3) Bipolar 1 disorder, depressed, severe: Status: Acute Discharge Plan Discharge Patient Disposition: Home, Self-Care Referrals: [facility] [Other] - 07/04/20 (Fax- [phone] resume at D/C will come in the evening on 07/04/20 ) Meera Pompa (therapist) [Other] - 07/08/20 1:00 pm (Telehealth a ppointment) Dr. Guerrero (psychiatrist) [Other] - 07/09/20 10:30 am (Telehealth appointment) [facility] [Other] (Referral submitted on 07/03/20 requesting services. They will follow up to schedule in-home assessment Mouna Kearns received the referral and will follow up. Her direct line is [phone]) Kira Craven MD [Primary Care Provider] - (OFFICE CALLED TO FOR APPOINTMENT, NO CALL BACK, [facility] FAXED, REQUESTED OFFICE TO CALL PT FOR FOLLOW UP APPNT) Discharge Medications: New donepezil 5 mg Tablet 10 mg PO DAILY Qty: 30 RF: 0 atorvastatin 10 mg Tablet 10 mg PO BEDTIME Qty: 30 RF: 0 lisinopril 10 mg Tablet 10 mg PO DAILY Qty: 30 RF: 0 propranolol 20 mg Tablet 20 mg PO TID@0830,1330,2100 Qty: 90 RF: 0 clonazepam 0.5 mg Tablet 0.5 mg PO TID Qty: 90 RF: 0 aspirin 81 mg Tablet,Delayed Release (Dr/Ec) 81 mg PO DAILY Qty: 30 RF: 0 benztropine 1 mg Tablet 0.5 mg PO BID@0830,2099 Qty: 60 RF: 0 gabapentin 300 mg Capsule 300 mg PO BID@829,2100 Qty: 60 RF: 0 hydroxyzine HCl 25 mg Tablet 25 mg PO BEDTIME MRX1 PRN (Reason: NIGHT TIME ANXIETY) Qty: 30 RF: 0 metformin 500 mg Tablet 1,500 mg PO BIDWM Qty: 48 RF: 0 bacitracin 500 unit/gram Ointment 1 appl topical TID Qty: 1 RF: 0 Flovent Diskus 100 mcg/actuation Blister With Device 1 puff inhalation RBID Qty: 1 RF: 0 Dermacerin Cream 1 appl topical BID Qty: 100 RF: 0 Continued atorvastatin 10 mg Tablet 10 mg PO BEDTIME Qty: 30 RF: 0 clonazepam 0.5 mg Tablet 0.5 mg PO DAILY MDD 2.5 PRN (Reason: Anxiety) Qty: 30 RF: 0 clonazepam 1 mg Tablet 1 mg PO BID Qty: 60 RF: 0 amlodipine 5 mg Tablet 5 mg PO DAILY Qty: 30 RF: 0 lisinopril 10 mg Tablet 10 mg PO DAILY Qty: 30 RF: 0 loxapine succinate 5 mg Capsule 5 mg PO BEDTIME Qty: 30 RF: 0 benztropine 1 mg Tablet 1 mg PO BID Qty: 60 RF: 0 gabapentin 300 mg Capsule 300 mg PO BID Qty: 60 RF: 0 loxapine succinate 10 mg Capsule 10 mg PO BID Qty: 60 RF: 0 propranolol 20 mg Tablet 20 mg PO TID Qty: 90 RF: 0 Discontinued aspirin 81 mg Capsule,Delayed Release(Dr/Ec) 81 mg PO DAILY RF: 0 fluticasone propionate 110 mcg/actuation Hfa Aerosol Inhaler 1 puff INHALATION BID RF: 0 meclizine 25 mg Tablet 25 mg PO DAILY PRN (Reason: Dizziness) RF: 0 metformin 1,000 mg Tablet 1,500 mg PO BIDWM RF: 0 darifenacin 7.5 mg Tablet Extended Release 24 Hr 7.5 mg PO DAILY RF: 0 Discharge Orders: Discharge Order (Routine); Ordered 07/04/20 Ordered By: Jacque Ovalle Diet: advance to your usual diet Activity on Discharge: As tolerated Visit Report Forms: Patient Portal Discharge page Care Plan Goals: Continue medications Follow up with referral to [facility] Concerns: Memory impairment Plan of Treatment: Medication Psychiatry Therapy [facility] Mental Status Exam Mental Status Exam Patient Appearance: Well Grooomed Patient Orientation: Person Level of Consciousness: Awake and Appropriate Patient Behavior: Appropriate, Anxious, Distractible and Confused Mood Description: Calm, Anxious and Blunted Affect Description: Calm, Fearful and Anxious Patient Cognition Impaired: Yes Ability to Follow Directions: Fair Speech Pattern: Appropriate Memory Description: Remote Impaired and Immediate Impaired Hallucinations: Auditory (Quiet) Delusions: Not Present Thought Process: Goal Oriented and Slowed Thinking Thought Content: positive for Circumstantial, negative for Suicidal Ideation and negative for Homicidal Ideation Depressive Symptoms: Loss of Int. in Activity and Feelings of Guilt Judgement: Fair Data Data Completed and Pending Completed studies during hospitalization [Text1]: 06/27/20 06/27/20 06/27/20 09:40 09:40 16:35 Sodium Potassium Chloride Carbon Dioxide Anion Gap BUN Creatinine Estim Creat Clear Calc Estimated GFR POC Glucose 124 H Fasting Glucose Calcium Total Bilirubin AST ALT Alkaline Phosphatase Ammonia Total Protein Albumin Vitamin B12 453 Folate 15.2 T.pallidum Ab (EIA) Nonreactive 06/28/20 06/28/20 06/28/20 05:59 07:38 16:41 Sodium 139 Potassium 4.8 Chloride 105 Carbon Dioxide 25 Anion Gap 14 BUN 22 H Creatinine 0.77 Estim Creat Clear Calc 78.5 Estimated GFR > 60 POC Glucose 98 125 H Fasting Glucose 108 H Calcium 9.3 Total Bilirubin 0.5 AST 56 H ALT 54 H Alkaline Phosphatase 90 Ammonia Total Protein 7.6 Albumin 4.2 Vitamin B12 Folate T.pallidum Ab (EIA) 06/29/20 06/29/20 06/29/20 06:21 07:58 16:42 Sodium Potassium Chloride Carbon Dioxide Anion Gap BUN Creatinine Estim Creat Clear Calc Estimated GFR POC Glucose 96 134 H Fasting Glucose Calcium Total Bilirubin AST ALT Alkaline Phosphatase Ammonia 36 Total Protein Albumin Vitamin B12 Folate T.pallidum Ab (EIA) 06/30/20 06/30/20 07/01/20 06:09 16:51 06:26 Sodium Potassium Chloride Carbon Dioxide Anion Gap BUN Creatinine Estim Creat Clear Calc Estimated GFR POC Glucose 80 128 H 137 H Fasting Glucose Calcium Total Bilirubin AST ALT Alkaline Phosphatase Ammonia Total Protein Albumin Vitamin B12 Folate T.pallidum Ab (EIA) 07/01/20 07/02/20 07/02/20 17:07 06:01 16:49 Sodium Potassium Chloride Carbon Dioxide Anion Gap BUN Creatinine Estim Creat Clear Calc Estimated GFR POC Glucose 151 H 100 116 H Fasting Glucose Calcium Total Bilirubin AST ALT Alkaline Phosphatase Ammonia Total Protein Albumin Vitamin B12 Folate T.pallidum Ab (EIA) 07/03/20 07/03/20 07/04/20 06:11 17:18 06:07 Sodium Potassium Chloride Carbon Dioxide Anion Gap BUN Creatinine Estim Creat Clear Calc Estimated GFR POC Glucose 89 122 H 104 Fasting Glucose Calcium Total Bilirubin AST ALT Alkaline Phosphatase Ammonia Total Protein Albumin Vitamin B12 Folate T.pallidum Ab (EIA) DS: Summary Hospital Course Hospital Course: Mouna was admitted from the ER after presenting with an increase in confusion,AH and memory impairment. She has not been functioning at her home due to confusion. Her family has been increasingly concerned. For details please refer to the admission summary. Hospital Course Mouna was admitted on a CV. She had been re-started on the same medications she is stable on at home. She had been medically cleared in the ER. Concerns about her memory were investigated. MRI showed cerebral atrophy, and microvascular disease. MOCA was 08/19 and later . Labs were WNL and there was no reversible cause of dementia noted. She was seen in consultation by Dr. Everett of neurology. He confirmed the diagnosis of dementia. Aricept was started. Family was educated regarding diagnosis and prognosis. A referral was made to [facility] for home supports. Time spent discussing smoking cessation with patient: 3 to 10 minutes Status at Discharge Functional status at discharge: independent ambulation Overall status at discharge: patient is back to baseline Time Spent with Patient Time attestation: Total time spent providing and/or coordinating discharge services: Time spent: Greater than 30 minutes
== END 2020-07-04 16:20 | disposition home or self-care (01) | DRG 885 ==
PROVIDERS: Admitting Provider Psychiatry & Neurology Psychiatry; Emergency Provider Nurse Practitioner Family; PCP Internal Medicine; Visit Provider Psychiatry & Neurology Psychiatry
DX: F31.4 Bipolar disorder, current episode depressed, severe, without psychotic features (principal); F43.10 Post-traumatic stress disorder, unspecified; K21.9 Gastro-esophageal reflux disease without esophagitis; Z20.828 Contact with and (suspected) exposure to other viral communicable diseases; Z79.82 Long term (current) use of aspirin; Z79.84 Long term (current) use of oral hypoglycemic drugs; Z79.899 Other long term (current) drug therapy; F03.90 Unspecified dementia, unspecified severity, without behavioral disturbance, psychotic disturbance, mood disturbance, and anxiety
CPT/HCPCS: 36415; 70450; 70551; 71046; 80051; 80053; 80061; 80076; 80320; 81001; 82140; 82565; 82607; 82746; 82947; 83036; 83690; 83735; 84443; 84484; 84520; 85025; 85610; 85652; 86780; 87088; 93005; 95819; 99232; 99285; G0480; U0003

== ENCOUNTER 2020-07-14 16:27 | Emergency (ER) | payer OTHER, SELFPAY ==
[2020-07-14 16:29] VITALS: BP 149/87; PULSE 66; RESP 17; TEMP 36.6; O2SAT 97; BMI 36.6
--- NOTE | 2020-07-14 16:57 | ED_ITS ---
HPI - Psych General Chief Complaint: Psychiatric Symptoms Stated Complaint: depression Time Seen by Provider: 07/14/20 16:56 Source: patient Mode of arrival: ambulatory Limitations: no limitations History of Present Illness HPI Narrative: 6-year-old female with past medical history that is significant for depression, gji-jxjscad-nmafoalll diabetes, hypertension, cholecystectomy who is known to this facility for multiple psychiatric visits presents today with complaint of feeling increasingly depressed and suicidal ideations. States has been progressively getting worse over past several days with no specific triggers. She denies any specific plan. Denies any illicit drug use. She does report that she was diagnosed with dementia relatively recently has been taking a new medication she is not sure with the name is. complaint: suicidal ideation and feels depressed Onset (ago): day(s) Duration: constant History of same: Yes Relieving factors: none Exacerbating factors: none Associated psychiatric symptoms: none If self harm: admits thoughts of self harm Related Data Home Medications Medication Instructions Recorded Confirmed clonazepam 0.5 mg tablet 1 mg PO DAILY PRN tab 07/08/20 07/08/20 Previous Rx's Medication Instructions Recorded amlodipine 5 mg PO DAILY #30 tab 07/04/20 aspirin 81 mg PO DAILY #30 tab 07/04/20 atorvastatin 10 mg PO BEDTIME #30 tab 07/04/20 atorvastatin 10 mg PO BEDTIME #30 tab 07/04/20 bacitracin 1 appl TOPICAL TID #1 g 07/04/20 benztropine 0.5 mg PO BID@08,2099 #60 tab 07/04/20 benztropine 1 mg PO BID #60 tab 07/04/20 clonazepam 1 mg PO BID #60 tab 07/04/20 donepezil 10 mg PO DAILY #30 tab 07/04/20 fluticasone propionate [Flovent 1 puff INHALATION RBID #1 ea 07/04/20 Diskus] gabapentin 300 mg PO BID #60 cap 07/04/20 gabapentin 300 mg PO BID@0830,2100 #60 cap 07/04/20 hydroxyzine HCl 25 mg PO BEDTIME MRX1 PRN #30 tab 07/04/20 lisinopril 10 mg PO DAILY #30 tab 20 lisinopril 10 mg PO DAILY #30 tab 07/04/20 loxapine succinate 5 mg PO BEDTIME #30 cap 10/15/20 loxapine succinate 10 mg PO BID #60 cap 07/04/20 metformin 1,500 mg PO BIDWM #48 tab 07/04/20 propranolol 20 mg PO TID #90 tab 07/04/20 propranolol 20 mg PO TID@0830,1330,2100 #90 tab 07/04/20 white petrolatum-mineral oil 1 appl TOPICAL BID #100 g 07/04/20 [Dermacerin] ciprofloxacin HCl 500 mg tablet 500 mg PO BID 10 Days #20 tab 07/08/20 dicyclomine 10 mg capsule 10 mg PO BID 7 Days #14 cap 07/08/20 Allergies Allergy/AdvReac Type Severity Reaction Status Date / Time haloperidol [HALOPERIDOL] Allergy Intermediate SWELLING Unverified 06/06/20 14:55 carbamazepine [From Tegretol] Allergy Mild RASH, Unverified 06/06/20 14:55 TREMORS lithium [[place]] Allergy Mild RASH, Unverified 06/06/20 14:55 CRAWLING OUT OF SKIN olanzapine [From Zyprexa] Allergy Mild RICHARD Unverified 06/06/20 14:55 quetiapine [From Seroquel] Allergy Mild SWELLING Unverified 06/06/20 14:55 WHOLE BODY, RICHARD lisinopril [LISINOPRIL] Allergy Unknown UNKNOWN Unverified 06/06/20 14:55 topiramate [From TOPAMAX] Allergy Unknown RICHARD, SI Unverified 06/06/20 14:55 trazodone [TRAZODONE] Allergy Unknown SYNCOPE Unverified 06/06/20 14:55 aripiprazole [From ABILIFY] AdvReac Severe EXTREME SI Unverified 06/06/20 14:55 lamotrigine [From Lamictal] AdvReac Mild RICHARD Unverified 06/06/20 14:55 modafinil [From Provigil] AdvReac Mild RICHARD Unverified 06/06/20 14:55 ALL ANTI DEPRESSENTS Allergy Unknown I GO Uncoded 06/06/20 14:55 MANIC All anti-depressants Allergy Unknown manic, rash Uncoded 05/02/20 00:00 From GEODON Allergy Unknown LETHARGY Uncoded 06/06/20 14:55 From WELLBUTRIN AdvReac Unknown AGITATION, Uncoded 06/06/20 14:55 MAVIS Review of Systems Review of Systems: Constitutional: No Weight loss, No Fever, No Chills, No Night Sweats, No Fatigue, No Malaise ENT/Mouth: No Hearing loss, No Ear Pain, No Nasal Congestion, No Sinus Pain, No Hoarseness, No sore throat, No Rhinorrhea, No Swallowing Difficulty Eyes: No Eye Pain, No Swelling, No Redness, No Foreign Body, No Discharge, No Vision Changes Cardiovascular: No Chest Pain, No SOB, No Dyspnea on Exertion, No Orthopnea, No Edema, No Palpitations Respiratory: No Cough, No Sputum, No Wheezing, No Smoke Exposure, No Dyspnea Gastrointestinal: No Nausea, No Vomiting, No Diarrhea, No Constipation, No abdominal Pain, No Hematochezia, No Melena Genitourinary: no irregular bleeding, No Dysuria, No Urinary Frequency, No Hematuria, No Urinary Incontinence, No Urgency, No Flank Pain, No Urinary Flow Changes, No Hesitancy Musculoskeletal: No joint pain, No Myalgias, No Joint Swelling Skin: No Skin Lesions, No rash Neuro: No Weakness, No Numbness, No Paresthesias, No Loss of Consciousness, No Dizziness, No Headache Psych: As noted per HPI Heme/Lymph: No Bruising, No Bleeding,No Lymphadenopathy Endocrine: No Polyuria, No Polydipsia, No Temperature Intolerance Yes all other systems are reviewed and are negative [facility] Past Medical History Attestation statement: The following information was validated with the patient. Medical History (Updated 07/14/20 @ 21:09 by Lionel Doherty NP) Bipolar 1 disorder, depressed, severe Cognitive impairment Dementia Diarrhea PTSD (post-traumatic stress disorder) Social History Social History Alcohol intake: never Smoking Status: Smoker, status unknown Smoked in Last 30 Days: No Use of substances other than those prescribed or required for medical reasons: No Advance Directives: No Advance Directives Information Provided: No Physical Exam Vital Signs: Vital Signs: Vital Signs Temp Pulse Resp BP Pulse Ox 07/14/20 20:04 98.0 F 87 16 155/87 H 95 07/14/20 16:29 98 F 66 17 149/87 H 97 Body Mass Index 36.6 Reviewed Const: Other: flat affect General: cooperative and healthy appearing; No acute distress or intoxicated appearing Nutritional Appearance: average body habitus Orientation/consciousness: patient oriented x3 HENMT: Head: Yes normal to inspection Ears: hearing grossly normal bilaterally Eyes: General: appearance normal, both eyes and all related structures Visual Byrd: normal visual byrd by confrontation Neck: Neck: Yes normal visual inspection and No tender Thyroid: Thyroid normal Chest: Chest palpation & inspection: normal inspection of the chest Resp: Effort & Inspection: normal respiratory effort Cardio: Jugular venous distension: no JVD GI: Inspection: Yes normal to inspection Percussion: Yes normal to percussion Auscultation: normal bowel sounds : General: Yes no CVA tenderness Back/Spine/Pelvis: Back: no CVA tenderness Skin: General skin exam: no rashes or lesions noted Neuro: General: patient oriented x3 Extrem: General: Yes normal to inspection Course Course Course Narrative: 1700 will check medical screening labs and psychiatric evaluation. Offers no medical complaints at this time. Reevaluation(s) Reevaluation #1: S/o night team Pending crisis eval. MDM - Psych Restraints Face to Face Assessment: Face to Face Assessment: Current Situation: After assessment of the patient, a review of the pertinent medical record and a discussion with nursing staff, I feel the patient requires a restrain intervention. Reaction To: [] Medical Condition: [] Behavioral State: [] Continued Need: [] Lab Data Result diagrams: 07/14/20 18:27 07/14/20 18:27 Labs: Lab Results 07/14/20 07/14/20 07/14/20 Range/Units 18:15 18:21 18:27 WBC 6.1 (4.8-10.8) X10*3/uL RBC 4.59 (4.20-5.50) X10*6/uL Hgb 12.8 (12.0-16.0) g/dl Hct 40.5 (37-47) % MCV 88.2 (80-98) fL MCH 27.9 (27.0-33.0) pg MCHC 31.6 (31.0-35.0) g/dl RDW 14.6 (11.0-16.0) % Plt Count 152 L (160-400) X10*3/uL MPV 9.9 (9.4-12.3) fL Immature Gran % (Auto) 0.3 (0.0-0.4) % Neut % (Auto) 49.6 (45-73) % Lymph % (Auto) 37.7 (20-40) % [place] % (Auto) 7.0 (2-11) % Eos % (Auto) 4.6 H (0-4) % Baso % (Auto) 0.8 (0-2) % Lymph # (Auto) 2.3 (1.2-4.9) X10*3/uL [place] # (Auto) 0.4 (0.1-1.2) X10*3/uL Eos # (Auto) 0.3 (0.0-0.4) X10*3/uL Baso # (Auto) 0.1 (0.0-0.2) X10*3/uL Abs Immat Gran (auto) 0.02 (0.00-0.03) X10*3/uL Absolute Neuts (auto) 3.0 (2.0-8.3) X10*3/uL Absolute Nucleated RBC 0.000 (0.0-0.012) X10*3/uL Nucleated RBC % (auto) 0.0 (0.0-0.2) /100WBC Sodium (135-145) mmol/L Potassium (3.3-5.1) mmol/l Chloride (96-108) mmol/L Carbon Dioxide (22-29) mmol/L Anion Gap (12-20) BUN (9-16) mg/dL Creatinine (0.5-1.4) mg/dL Estim Creat Clear Calc Estimated GFR Random Glucose (60-115) mg/dL Calcium (8.4-10.2) mg/dL Total Bilirubin (0.0-1.0) mg/dL AST (5-31) U/L ALT (0-31) U/L Alkaline Phosphatase (39-117) U/L Total Protein (6.5-8.0) g/dL Albumin (3.5-5.0) g/dL Urine Color DARK YELLOW Urine Appearance CLEAR Urine pH 5.5 (5.0-8.0) Ur Specific [place] >= 1.030 H (1.005-1.025) Urine Protein 1+ H (NEG-TRACE) MG/DL Urine Glucose (UA) NEG (NEG) MG/DL Urine Ketones 15 (NEG) MG/DL Urine Blood NEG (NEG) Urine Nitrite NEG (NEG) Ur Leukocyte Esterase NEG (NEG) Urine RBC 0 (0) /HPF Urine WBC 0-2 (0-4) /HPF Ur Squamous Epith Cells TRACE /LPF Urine Bacteria NONE /LPF Urine Opiates Screen Not Detected (Not Detect) Ur Barbiturates Screen Not Detected (Not Detect) Ur Phencyclidine Scrn Not Detected (Not Detect) Ur Amphetamines Screen Not Detected (Not Detect) U Benzodiazepines Scrn POSITIVE H (Not Detect) Urine Cocaine Screen Not Detected (Not Detect) U Marijuana (THC) Screen Not Detected (Not Detect) Ethyl Alcohol mg/dL 07/14/20 07/14/20 Range/Units 18:27 18:27 WBC (4.8-10.8) X10*3/uL RBC (4.20-5.50) X10*6/uL Hgb (12.0-16.0) g/dl Hct (37-47) % MCV (80-98) fL MCH (27.0-33.0) pg MCHC (31.0-35.0) g/dl RDW (11.0-16.0) % Plt Count (160-400) X10*3/uL MPV (9.4-12.3) fL Immature Gran % (Auto) (0.0-0.4) % Neut % (Auto) (45-73) % Lymph % (Auto) (20-40) % [place] % (Auto) (2-11) % Eos % (Auto) (0-4) % Baso % (Auto) (0-2) % Lymph # (Auto) (1.2-4.9) X10*3/uL [place] # (Auto) (0.1-1.2) X10*3/uL Eos # (Auto) (0.0-0.4) X10*3/uL Baso # (Auto) (0.0-0.2) X10*3/uL Abs Immat Gran (auto) (0.00-0.03) X10*3/uL Absolute Neuts (auto) (2.0-8.3) X10*3/uL Absolute Nucleated RBC (0.0-0.012) X10*3/uL Nucleated RBC % (auto) (0.0-0.2) /100WBC Sodium 142 (135-145) mmol/L Potassium 4.5 (3.3-5.1) mmol/l Chloride 108 (96-108) mmol/L Carbon Dioxide 24 (22-29) mmol/L Anion Gap 15 (12-20) BUN 12 (9-16) mg/dL Creatinine 0.78 (0.5-1.4) mg/dL Estim Creat Clear Calc 80.3 Estimated GFR > 60 Random Glucose 105 (60-115) mg/dL Calcium 9.0 (8.4-10.2) mg/dL Total Bilirubin 0.5 (0.0-1.0) mg/dL AST 32 H D (5-31) U/L ALT 34 H (0-31) U/L Alkaline Phosphatase 78 (39-117) U/L Total Protein 7.7 (6.5-8.0) g/dL Albumin 4.2 (3.5-5.0) g/dL Urine Color Urine Appearance Urine pH (5.0-8.0) Ur Specific [place] (1.005-1.025) Urine Protein (NEG-TRACE) MG/DL Urine Glucose (UA) (NEG) MG/DL Urine Ketones (NEG) MG/DL Urine Blood (NEG) Urine Nitrite (NEG) Ur Leukocyte Esterase (NEG) Urine RBC (0) /HPF Urine WBC (0-4) /HPF Ur Squamous Epith Cells /LPF Urine Bacteria /LPF Urine Opiates Screen (Not Detect) Ur Barbiturates Screen (Not Detect) Ur Phencyclidine Scrn (Not Detect) Ur Amphetamines Screen (Not Detect) U Benzodiazepines Scrn (Not Detect) Urine Cocaine Screen (Not Detect) U Marijuana (THC) Screen (Not Detect) Ethyl Alcohol < 10 mg/dL Discharge Plan Discharge Clinical Impression: Depression Prescriptions: No Action donepezil 5 mg Tablet 10 mg PO DAILY Qty: 30 RF: 0 atorvastatin 10 mg Tablet 10 mg PO BEDTIME Qty: 30 RF: 0 lisinopril 10 mg Tablet 10 mg PO DAILY Qty: 30 RF: 0 propranolol 20 mg Tablet 20 mg PO TID@0830,1330,2100 Qty: 90 RF: 0 aspirin 81 mg Tablet,Delayed Release (Dr/Ec) 81 mg PO DAILY Qty: 30 RF: 0 benztropine 1 mg Tablet 0.5 mg PO BID@0830,2100 Qty: 60 RF: 0 gabapentin 300 mg Capsule 300 mg PO BID@0830,2100 Qty: 60 RF: 0 hydroxyzine HCl 25 mg Tablet 25 mg PO BEDTIME MRX1 PRN (Reason: NIGHT TIME ANXIETY) Qty: 30 RF: 0 metformin 500 mg Tablet 1,500 mg PO BIDWM Qty: 48 RF: 0 bacitracin 500 unit/gram Ointment 1 appl topical TID Qty: 1 RF: 0 Flovent Diskus 100 mcg/actuation Blister With Device 1 puff inhalation RBID Qty: 1 RF: 0 Dermacerin Cream 1 appl topical BID Qty: 100 RF: 0 atorvastatin 10 mg Tablet 10 mg PO BEDTIME Qty: 30 RF: 0 clonazepam 1 mg Tablet 1 mg PO BID Qty: 60 RF: 0 amlodipine 5 mg Tablet 5 mg PO DAILY Qty: 30 RF: 0 lisinopril 10 mg Tablet 10 mg PO DAILY Qty: 30 RF: 0 loxapine succinate 5 mg Capsule 5 mg PO BEDTIME Qty: 30 RF: 0 benztropine 1 mg Tablet 1 mg PO BID Qty: 60 RF: 0 gabapentin 300 mg Capsule 300 mg PO BID Qty: 60 RF: 0 loxapine succinate 10 mg Capsule 10 mg PO BID Qty: 60 RF: 0 propranolol 20 mg Tablet 20 mg PO TID Qty: 90 RF: 0 clonazepam 0.5 mg tablet 1 mg PO DAILY PRN (Reason: Anxiety) RF: 0 ciprofloxacin HCl 500 mg tablet 500 mg PO BID 10 Days Qty: 20 RF: 0 dicyclomine 10 mg capsule 10 mg PO BID 7 Days Qty: 14 RF: 0
[2020-07-14 18:29] LABS: Glucose Urine UA NEG (NEG); Leukocyte Esterase Urine NEG (NEG); Nitrite Urine NEG (NEG); PH 5.5 (5.0-8.0); Specific Gravity - Urine >= 1.030 (1.005-1.025); Urine Blood NEG (NEG); Urine Ketones 15 MG/DL (NEG); Urine Protein 1+ MG/DL (NEG-TRACE)
[2020-07-14 18:30] LABS: Appearance Urine CLEAR; Color Urine DARK YELLOW
[2020-07-14 18:31] LABS: MANUAL DIFF FLAG NO
[2020-07-14 18:33] LABS: Basophils Absolute Auto 0.1 X10*3/uL (0.0-0.2); Basophils Percent Auto 0.8 % (0-2); Eosinophils Absolute Auto 0.3 X10*3/uL (0.0-0.4); Eosinophils Percent Auto 4.6 % (0-4); Hematocrit 40.5 % (37-47); Hemoglobin 12.8 g/dl (12.0-16.0); Imm Gran Abs Auto 0.02 X10*3/uL (0.00-0.03); Imm Gran Pct Auto 0.3 % (0.0-0.4); Lymphocytes Absolute Auto 2.3 X10*3/uL (1.2-4.9); Lymphocytes Percent Auto 37.7 % (20-40); Mean Corpuscular HGB Conc 31.6 g/dl (31.0-35.0); Mean Corpuscular Hemoglobin 27.9 pg (27.0-33.0); Mean Corpuscular Volume 88.2 fL (80-98); Mean Platelet Volume 9.9 fL (9.4-12.3); Monocytes Absolute Auto 0.4 X10*3/uL (0.1-1.2); Neutrophils Percent Auto 49.6 % (45-73); Platelet Count 152 X10*3/uL (160-400); Red Blood Count 4.59 X10*6/uL (4.20-5.50); Red Cell Distribution Width 14.6 % (11.0-16.0); White Blood Count 6.1 X10*3/uL (4.8-10.8)
[2020-07-14 18:36] LABS: RBC Urine 0 /HPF (0); Squamous Epithelial Cell Urine TRACE /LPF; WBC Urine 0-2 /HPF (0-4)
--- NOTE | 2020-07-14 18:49 | MHC.CARE ---
CARE team consult requested by ED provider for pt who presented to ED endorsing active thoughts of suicide and feeling depressed and manic. Pt was recently admitted for inpt treatment on [facility] from 06/17/20-06/19/30, and had two respite stays in the month prior to this admission. This policy writer typist met with pt in ED 18H. Pt had flat affect, soft voice, and made little to no eye contact with this policy writer typist. Pt stated that she is feeling depressed and manic, and when asked how she experiences feelings of kailash, pt reported I feel like killing myself. Pt endorsed experiencing auditory and visual hallucinations, though was not observed to be responding to internal stimuli during this conversation. Pt reported that the voices are saying mean things to her, and that the visual hallucinations are people that she doesn't know. Pt stated that she has been compliant with medications and outpatient supports, and that her therapist recommended that pt come to ED for evaluation after she called her this morning. This policy writer typist made recommendation for pt to be referred for [facility] crisis evaluation due to the acuity of her presentation.
[2020-07-14 19:01] LABS: Ethanol < 10 mg/dL
[2020-07-14 19:03] LABS: Alanine Aminotransferase 34 U/L (0-31); Albumin Level 4.2 g/dL (3.5-5.0); Alkaline Phosphatase 78 U/L (39-117); Anion Gap 15 (12-20); Aspartate Amino Transferase 32 U/L (5-31); Bilirubin Total 0.5 mg/dL (0.0-1.0); Blood Urea Nitrogen 12 mg/dL (9-16); Carbon Dioxide 24 mmol/L (22-29); Chloride 108 mmol/L (96-108); Creatinine Clr Calc Pharmacy 80.3; Estimated Glomerular Filt Rate > 60; Glucose Random 105 mg/dL (60-115); Potassium 4.5 mmol/l (3.3-5.1); Sodium 142 mmol/L (135-145); Total Protein 7.7 g/dL (6.5-8.0)
[2020-07-14 19:04] LABS: Amphetamine Screen Urine Not Detected (Not Detect); Barbiturates, Urine Not Detected (Not Detect); Benzodiazepines Screen Urine POSITIVE (Not Detect); Cannabinoid Screen Urine Not Detected (Not Detect); Cocaine Screen Urine Not Detected (Not Detect); Opiate Screen Urine Not Detected (Not Detect); Phencyclidine Screen Urine Not Detected (Not Detect)
--- NOTE | 2020-07-14 19:44 | PC.NURSE ---
Faxed to [facility]
[2020-07-14 20:04] VITALS: BP 155/87; PULSE 87; RESP 16; TEMP 36.7; O2SAT 95
[2020-07-14 22:00] VITALS: BP 116/67; PULSE 72; RESP 16; TEMP 36.4; O2SAT 95
--- NOTE | 2020-07-14 23:03 | PC.NURSE ---
Pharmacy to fax over med list. Patient moving to pod.
--- NOTE | 2020-07-14 23:55 | PC.NURSE ---
Patient just got moved from main ED after medical clearance, patient ambulatory, alert and oriented. [facility] refaxed/called/spoke with [facility] confirmed receipt of the referral. Patient in bed seems resting quietly. Will continue to monitor.
[2020-07-15] MEDS: clonazePAM 0.5 MG TABLET PO (00:48)
[2020-07-15] MEDS: Benztropine Mesylate 1 MG TABLET PO ×2 (00:48→10:09)
[2020-07-15] MEDS: hydrOXYzine HCL 25 MG TABLET PO (00:48)
[2020-07-15 00:49] VITALS: BP 147/106; PULSE 81
[2020-07-15] MEDS: Atorvastatin Calcium 10 MG TABLET PO (00:49)
[2020-07-15] MEDS: Propranolol HCL 20 MG TABLET PO ×2 (00:49→10:09)
--- NOTE | 2020-07-15 06:12 | PC.NURSE ---
Patient in bed appears sleeping, slept most part of the night, [facility] called/updated patient's dispo. No distress observed/reported, will continue to monitor.
[2020-07-15 06:31] VITALS: BP 130/62; PULSE 65; RESP 16; TEMP 36.7; O2SAT 95
--- NOTE | 2020-07-15 07:11 | PC.NURSE ---
PT SITTING IN ROOM EATING BREAKFAST, NO SIGN OF DISTRESS AT THIS TIME. RESPIRATIONS EVEN/UNLABORED BILATERALLY. WILL CONTINUE TO MONITOR.
[2020-07-15 09:10] VITALS: BP 107/68; PULSE 66; TEMP 36.2; O2SAT 95
[2020-07-15] MEDS: Donepezil HCl 10 MG TABLET PO (10:09)
[2020-07-15] MEDS: amLODIPine Besylate 5 MG TABLET PO (10:09)
[2020-07-15] MEDS: metFORMIN HCl 1,000 MG TABLET 1000 MG PO (10:10)
== END 2020-07-15 11:07 | disposition home or self-care (01) ==
PROVIDERS: Nurse Practitioner Primary Care; Emergency Provider Emergency Medicine; PCP Internal Medicine
DX: F33.1 Major depressive disorder, recurrent, moderate (principal); R45.851 Suicidal ideations; F03.90 Unspecified dementia, unspecified severity, without behavioral disturbance, psychotic disturbance, mood disturbance, and anxiety; F17.200 Nicotine dependence, unspecified, uncomplicated; Z71.6 Tobacco abuse counseling; Z79.899 Other long term (current) drug therapy
CPT/HCPCS: 36415; 80053; 80307; 80320; 81001; 85025; 99285

== ENCOUNTER → 2020-07-29 10:35 | Outpatient (BNVA) | payer OTHER, SELFPAY | PROVIDERS: PCP Internal Medicine; Referring Provider Internal Medicine; Visit Provider Dietitian, Registered | DX: Z76.89 Persons encountering health services in other specified circumstances (principal) ==

== ENCOUNTER 2020-10-25 17:48 | Inpatient (IN) | payer OTHER, SELFPAY ==
[2020-10-25 18:08] VITALS: BP 132/79; PULSE 82; RESP 14; TEMP 36.8; O2SAT 98; BMI 22.8
[2020-10-25 19:49] VITALS: BP 142/86; PULSE 73; RESP 16; TEMP 36.6; O2SAT 95
--- NOTE | 2020-10-25 20:42 | ED_ITS ---
HPI - Psych General Chief Complaint: Psychiatric Symptoms <RUDOLPH Cano - Last Filed: 10/25/20 21:13> Stated Complaint: crisis <RUDOLPH Cano - Last Filed: 10/25/20 21:13> Time Seen by Provider: 10/25/20 20:42 <RUDOLPH Cano - Last Filed: 10/25/20 21:13> History of Present Illness HPI Narrative: Patient is a 6-year-old female the past medical history of bipolar 1 disorder with depression, PTSD, dementia, HTN, type 2 diabetes, GERD and mixed incontinence presenting with auditory and visual hallucinations both during sleep and when she is awake. She denies current SI but does have a history of suicide attempts. Denies HI. Denies any physical pains and states she is taking her mental health medications as directed. She states the people that she is seeing are pissing her off ?. Patient denies any illicit drug use or alcohol use today. <RUDOLPH Cano - Last Filed: 10/25/20 21:13> Related Data Home Medications: Home Medications Medication Instructions Recorded Confirmed clonazepam 0.5 mg tablet 1 mg PO DAILY PRN tab 07/08/20 10/25/20 amlodipine 5 mg PO DAILY 07/14/20 10/25/20 loxapine succinate 10 mg PO BID 07/14/20 10/25/20 propranolol 20 mg PO TID 07/14/20 10/25/20 benztropine 1 mg PO BID@0830,2100 10/25/20 10/25/20 clonazepam 1 mg PO BID 10/25/20 10/25/20 loxapine succinate 5 mg PO BEDTIME 10/25/20 10/25/20 Previous Rx's Medication Instructions Recorded meloxicam 15 mg tablet 15 mg PO DAILY #30 tab 08/21/20 aspirin 81 mg tablet,delayed 81 mg PO DAILY #30 tab 08/22/20 release meclizine 25 mg tablet 25 mg PO DAILY PRN 30 Days #30 tab 08/22/20 Covidien Sure Care Plus Protective #120 ea 08/28/20 Underwear fluticasone furoate 100 1 inh PO DAILY #30 ea 09/03/20 mcg/actuation blister powder for inhalation lancets 28 gauge 28 gauge MISCELLANEOUS DIRECTED 09/09/20 #100 ea metformin 1,000 mg tablet 1,000 mg PO BID #180 tab 09/09/20 fluticasone propionate 110 1 puff PO BID #12 g 09/23/20 mcg/actuation HFA aerosol inhaler loperamide 2 mg capsule 2 mg PO Q6H PRN #20 cap 09/25/20 cyclobenzaprine 5 mg tablet 5 mg PO TID PRN #80 tab 10/08/20 lisinopril 20 mg tablet 20 mg PO DAILY #30 tab 10/08/20 darifenacin 7.5 mg tablet,extended 7.5 mg PO DAILY #30 tab 10/14/20 release 24 hr gabapentin 300 mg capsule 300 mg PO BID #60 cap 10/14/20 blood sugar diagnostic 1 strip MISCELLANEOUS DAILY #100 10/20/20 strip <RUDOLPH Cano - Last Filed: 10/25/20 21:13> Allergies/Adverse Reactions: Allergies Allergy/AdvReac Type Severity Reaction Status Date / Time haloperidol [HALOPERIDOL] Allergy Intermediate SWELLING Verified 07/14/20 22:44 carbamazepine [From Tegretol] Allergy Mild RASH, Verified 07/14/20 22:44 TREMORS lithium [[place]ord] Allergy Mild RASH, Verified 07/14/20 22:44 CRAWLING OUT OF SKIN olanzapine [From Zyprexa] Allergy Mild RICHARD Verified 07/14/20 22:44 quetiapine [From Seroquel] Allergy Mild SWELLING Verified 07/14/20 22:44 WHOLE BODY, RICHARD lisinopril [LISINOPRIL] Allergy Unknown UNKNOWN Verified 07/19/20 12:19 topiramate [From TOPAMAX] Allergy Unknown RICHARD, SI Verified 07/14/20 22:44 trazodone [TRAZODONE] Allergy Unknown SYNCOPE Verified 07/14/20 22:44 aripiprazole [From ABILIFY] AdvReac Severe EXTREME SI Verified 07/14/20 22:44 lamotrigine [From Lamictal] AdvReac Mild RICHARD Verified 07/14/20 22:44 modafinil [From Provigil] AdvReac Mild RICHARD Verified 07/14/20 22:44 ALL ANTI DEPRESSENTS Allergy Unknown I GO Uncoded 06/06/20 14:55 MANIC All anti-depressants Allergy Unknown manic, rash Uncoded 05/02/20 00:00 From GEODON Allergy Unknown LETHARGY Uncoded 06/06/20 14:55 From WELLBUTRIN AdvReac Unknown AGITATION, Uncoded 06/06/20 14:55 MAVIS <RUDOLPH Cano - Last Filed: 10/25/20 21:13> Review of Systems Review of Systems: Yes all other systems are reviewed and are negative <RUDOLPH Cano - Last Filed: 10/25/20 21:13> [facility] Past Medical History Medical History: Medical History Asthma Bipolar 1 disorder, depressed, severe Chronic hepatitis C Dementia Diabetic nephropathy Fatty liver GERD (gastroesophageal reflux disease) Hypercholesterolemia Hypertension Obesity (BMI 30-39.9) Polysubstance abuse PTSD (post-traumatic stress disorder) Type 2 diabetes mellitus with hyperglycemia Uterine prolapse <RUDOLPH Cano - Last Filed: 10/25/20 21:13> Surgical History: Surgical History History of appendectomy History of cholecystectomy History of ectopic History of tonsillectomy <RUDOLPH Cano - Last Filed: 10/25/20 21:13> Family History Family History: Family History Father Diabetes Hypertension Mother Hypertension Diabetes CVD (cardiovascular disease) CAD (coronary artery disease) Maternal Aunt Myocardial infarction Maternal Uncle Myocardial infarction <RUDOLPH Cano - Last Filed: 10/25/20 21:13> Social History Social History: Social History Alcohol intake: former Smoking Status: Never smoker Use of substances other than those prescribed or required for medical reasons: No Advance Directives: No Advance Directives Information Provided: Yes <RUDOLPH Cano - Last Filed: 10/25/20 21:13> Physical Exam Vital Signs: Vital Signs: Last Vital Signs Temp 97.8 F 10/26/20 00:00 Pulse 66 10/26/20 00:00 Resp 16 10/26/20 00:00 BP 106/65 10/26/20 00:00 Pulse Ox 95 10/26/20 00:00 Body Mass Index 22.8 <Ana Delarosa PA - Last Filed: 10/25/20 21:13> Vital Signs: Last Vital Signs Temp 97.8 F 10/26/20 00:00 Pulse 66 10/26/20 00:00 Resp 16 10/26/20 00:00 BP 106/65 10/26/20 00:00 Pulse Ox 95 10/26/20 00:00 Body Mass Index 22.8 <Le Morin PA - Last Filed: 10/26/20 02:12> Const: General: cooperative, healthy appearing, comfortable and no acute distress <RUDOLPH Cano - Last Filed: 10/25/20 21:13> Nutritional Appearance: average body habitus <RUDOLPH Cano - Last Filed: 10/25/20 21:13> Orientation/consciousness: patient oriented x3 <RUDOLPH Cano - Last Filed: 10/25/20 21:13> HENMT: Head: Yes normal to inspection <RUDOLPH Cano - Last Filed: 10/25/20 21:13> Eyes: General: appearance normal, both eyes and all related structures <RUODLPH Cano - Last Filed: 10/25/20 21:13> Neck: Neck: Yes normal visual inspection, Yes full ROM, Yes trachea midline and Yes supple <RUDOLPH Cano - Last Filed: 10/25/20 21:13> Resp: Effort & Inspection: normal respiratory effort and able to speak in complete sentences <RUDOLPH Cano - Last Filed: 10/25/20 21:13> Neuro: General: patient oriented x3 <RUDOLPH Cano - Last Filed: 10/25/20 21:13> Extrem: General: Yes normal to inspection and Yes no pedal edema <RUDOLPH Cano - Last Filed: 10/25/20 21:13> Psych: Appearance: disheveled <RUDOLPH Cano - Last Filed: 10/25/20 21:13> Speech and movement: Normal speech and movement present <RUDOLPH Cano Last Filed: 10/25/20 21:13> Affect: normal affect <RUDOLPH Cano Last Filed: 10/25/20 21:13> Attitude: cooperative <RUDOLPH Cano Last Filed: 10/25/20 21:13> Thought process: Illogical thought process present <RUDOLPH Cano Last Filed: 10/25/20 21:13> Thought content: suicidality, no homicidality and Hallucination(s) present auditory and visual <RUDOLPH Cano Last Filed: 10/25/20 21:13> Insight: Fair insight present (Psych) <RUDOLPH Cano Last Filed: 10/25/20 21:13> Judgement: Fair judgement present (Psych) <RUDOLPH Cano Last Filed: 10/25/20 21:13> Course Course Course Narrative: Patient is a 6-year-old female with past medical history of bipolar 1 disorder with depression, PTSD, type 2 diabetes, HTN and HLD who presents with auditory and visual hallucinations that are making her angry. She states she is taking all of her meds as prescribed. She has no physical complaints and denies any alcohol or drug use today. She is medically cleared, I will put a consult in for crisis. 9pm sign-out to RUDOLPH Lujan <RUDOLPH Cano - Last Filed: 10/25/20 21:13> -1015--patient's blood glucose noted to be 492, labs obtained, acetone negative, no AG > will give 10 units of subcu insulin and re-evaluate -patient moved to Main ED for IV fluids and further management. > 5 units IV insulin given and IVF, repeat glucose 337. Will finish IVF and return patient to [facility] pod pending [facility] evaluation -0200--ED care transferred to Dr. Villatoro pending crisis evaluation and glucose monitoring <RUDOLPH Lopez Last Filed: 10/26/20 02:12> Discharge Plan Discharge Prescriptions: No Action meloxicam 15 mg tablet 15 mg PO DAILY Qty: 30 RF: 2 meclizine 25 mg tablet 25 mg PO DAILY PRN (Reason: dizziness) 30 Days Qty: 30 RF: 4 aspirin 81 mg tablet,delayed release (DR/EC) 81 mg PO DAILY Qty: 30 RF: 4 (DME) Covidien Sure Care Plus Protective Underwear See Rx Instructions .Route .MEDSUPPLY Qty: 120 RF: 0 fluticasone furoate [Arnuity Ellipta] 100 mcg/actuation blister with device 1 inh PO DAILY Qty: 30 RF: 11 metformin 1,000 mg tablet 1,000 mg PO BID Qty: 180 RF: 1 lancets [FreeStyle Lancets] 28 gauge misc 28 gauge miscellaneous DIRECTED Qty: 100 RF: 3 fluticasone propionate [Flovent HFA] 110 mcg/actuation HFA aerosol inhaler 1 puff PO BID Qty: 12 RF: 5 loperamide 2 mg capsule 2 mg PO Q6H PRN (Reason: for diarrhea) Qty: 20 RF: 2 lisinopril 20 mg tablet 20 mg PO DAILY Qty: 30 RF: 5 cyclobenzaprine 5 mg tablet 5 mg PO TID PRN (Reason: for muscle spasm) Qty: 80 RF: 4 gabapentin 300 mg capsule 300 mg PO BID Qty: 60 RF: 5 darifenacin 7.5 mg tablet extended release 24 hr 7.5 mg PO DAILY Qty: 30 RF: 5 blood sugar diagnostic [FreeStyle Lite Strips] Strip 1 strip miscellaneous DAILY Qty: 100 RF: 3 loxapine succinate 5 mg Capsule 5 mg PO BEDTIME RF: 0 clonazepam 1 mg tablet 1 mg PO BID RF: 0 benztropine 1 mg tablet 1 mg PO BID@0830,2100 RF: 0 amlodipine 5 mg Tablet 5 mg PO DAILY RF: 0 loxapine succinate 10 mg Capsule 10 mg PO BID RF: 0 propranolol 20 mg Tablet 20 mg PO TID RF: 0 clonazepam 0.5 mg tablet 1 mg PO DAILY PRN (Reason: Anxiety) RF: 0 <RUDOLPH Cano - Last Filed: 10/25/20 21:13>
[2020-10-25 20:44] VITALS: BP 124/76; PULSE 70; RESP 16; TEMP 36.4; O2SAT 95
[2020-10-25 21:07] LABS: Glucose, Whole Blood 492 mg/dL (60-115)
[2020-10-25 21:31] LABS: MANUAL DIFF FLAG NO
[2020-10-25 21:34] LABS: Basophils Absolute Auto 0.1 X10*3/uL (0.0-0.2); Eosinophils Absolute Auto 0.2 X10*3/uL (0.0-0.4); Eosinophils Percent Auto 3.6 % (0-4); Hematocrit 35.9 % (37-47); Hemoglobin 12.2 g/dl (12.0-16.0); Imm Gran Abs Auto 0.01 X10*3/uL (0.00-0.03); Imm Gran Pct Auto 0.1 % (0.0-0.4); Lymphocytes Absolute Auto 2.6 X10*3/uL (1.2-4.9); Lymphocytes Percent Auto 39.4 % (20-40); Mean Corpuscular Volume 85.3 fL (80-98); Mean Platelet Volume 11.5 fL (9.4-12.3); Monocytes Absolute Auto 0.5 X10*3/uL (0.1-1.2); Monocytes Percent Auto 7.3 % (2-11); Neutrophils Absolute Auto 3.3 X10*3/uL (2.0-8.3); Neutrophils Percent Auto 48.6 % (45-73); Platelet Count 142 X10*3/uL (160-400); Red Blood Count 4.21 X10*6/uL (4.20-5.50); Red Cell Distribution Width 13.4 % (11.0-16.0); White Blood Count 6.7 X10*3/uL (4.8-10.8)
[2020-10-25 21:47] LABS: Acetone, serum QL Negative (Negative)
[2020-10-25 22:02] LABS: Anion Gap 14 (12-20); Blood Urea Nitrogen 26 mg/dL (9-16); Calcium 9.5 mg/dL (8.4-10.2); Carbon Dioxide 25 mmol/L (22-29); Chloride 97 mmol/L (96-108); Creatinine Clr Calc Pharmacy 40.4; Estimated Glomerular Filt Rate 47; Glucose Random 570 mg/dL (60-115); Potassium 5.2 mmol/L (3.3-5.1); Sodium 131 mmol/L (135-145)
[2020-10-25] MEDS: Insulin Regular, Human 100 UNIT/ML 3 ML VIAL 10 UNIT SUBCUT (22:22)
[2020-10-25 23:08] LABS: Base Excess VBG -0.2 mmol/L; HCO3 VBG 24 mmol/L; PCO2 VBG 42 mmHg; PO2 VBG 115 mmHg; pH VBG 7.37 (7.32-7.43)
--- NOTE | 2020-10-25 23:22 | PC.NURSE ---
Report received. PT is sitting in her room quietly. Monitoring the PT for elevated glucose level. PT waiting to be seen by N.
[2020-10-25 23:38] LABS: Glucose, Whole Blood 452 mg/dL (60-115)
[2020-10-26] VITALS (8 sets, daily range): BP systolic 106–158; BP diastolic 65–98; PULSE 66–93; RESP 16–18; TEMP 36.4–37.1; O2SAT 94–96
--- NOTE | 2020-10-26 | ECG_ITS ---
Test Reason : CARDIAC HISTORY Blood Pressure : / mmHG Vent. Rate : 078 BPM Atrial Rate : 078 BPM P-R Int : 192 ms QRS Dur : 102 ms QT Int : 424 ms P-R-T Axes : 049 -49 064 degrees QTc Int : 483 ms Normal sinus rhythm Left anterior fascicular block Prolonged QT Abnormal ECG When compared with ECG of 04-JUL-2020 08:28, No significant change was found Referred By: Lionel Doherty Electronically Signed By:CRISTIANA KEMP
--- NOTE | 2020-10-26 00:03 | PC.NURSE ---
PT is being transferred to the main ED to receive treatment for elevated blood sugar.
[2020-10-26 00:28] LABS: Glucose, Whole Blood 445 mg/dL (60-115)
[2020-10-26] MEDS: Insulin Regular, Human 100 UNIT/ML 3 ML VIAL IVPUSH (00:34)
[2020-10-26] MEDS: 0.9 % Sodium Chloride 1,000 ML 999 ML IVCONT ×2 (00:34)
[2020-10-26 01:11] LABS: Glucose, Whole Blood 337 mg/dL (60-115)
--- NOTE | 2020-10-26 02:23 | PC.NURSE ---
patients blood sugar is 272 at this time after fluids finishing. provider made aware instructed to have patient return to the pod. patient is agreeable to plan of care. no distress noted. skin is p,d,w. pod nurse updated on patient.
[2020-10-26 02:24] LABS: Glucose, Whole Blood 272 mg/dL (60-115)
--- NOTE | 2020-10-26 04:20 | PC.NURSE ---
PT seen by Lynnette. Decision was made to hold the PT as inpatient bed search.
[2020-10-26 06:42] LABS: Glucose, Whole Blood 251 mg/dL (60-115)
--- NOTE | 2020-10-26 06:59 | PC.NURSE ---
Report received. PT resting, asks is this real frequently. Pt denies complaints, pleasant. PT is inpatient bedsearch.
[2020-10-26 08:57] LABS: Alanine Aminotransferase 87 U/L (0-31); Albumin Level 4.1 g/dL (3.5-5.0); Alkaline Phosphatase 165 U/L (39-117); Anion Gap 16 (12-20); Aspartate Amino Transferase 78 U/L (5-31); Bilirubin Total 0.8 mg/dL (0.0-1.0); Blood Urea Nitrogen 19 mg/dL (9-16); Calcium 8.9 mg/dL (8.4-10.2); Carbon Dioxide 22 mmol/L (22-29); Chloride 102 mmol/L (96-108); Creatinine Clr Calc Pharmacy 50.3; Estimated Glomerular Filt Rate > 60; Glucose Random 398 mg/dL (60-115); Potassium 4.5 mmol/L (3.3-5.1); Sodium 135 mmol/L (135-145)
[2020-10-26] MEDS: Insulin Regular, Human 100 UNIT/ML 3 ML VIAL SUBCUT (09:58)
[2020-10-26] MEDS: metFORMIN HCl 1,000 MG TABLET 1000 MG PO ×2 (09:59→17:32)
--- NOTE | 2020-10-26 10:02 | PC.NURSE ---
Pt POC 385, provider notified, 5 units insulin ordered, per provider give metformin dose now. Pt medicated per emar.
[2020-10-26 10:46] LABS: COVID-19 Test Negative (Negative)
[2020-10-26 13:02] LABS: Glucose, Whole Blood 347 mg/dL (60-115)
[2020-10-26] MEDS: Insulin Lispro 100 UNIT/ML 3 ML VIAL SUBCUT ×3 (13:28→20:22)
[2020-10-26] MEDS: Propranolol HCL 20 MG TABLET PO ×2 (15:34→20:21)
[2020-10-26 16:27] LABS: Glucose, Whole Blood 370 mg/dL (60-115)
[2020-10-26] MEDS: Benztropine Mesylate 1 MG TABLET PO (20:14)
[2020-10-26] MEDS: Gabapentin 300 MG CAPSULE PO (20:14)
[2020-10-26] MEDS: clonazePAM 1 MG TABLET PO (20:14)
[2020-10-26] MEDS: NaPROXEN 500 MG TABLET PO (20:15)
[2020-10-26 20:19] LABS: Glucose, Whole Blood 365 mg/dL (60-115)
[2020-10-26] MEDS: Fluticasone Propionate 100 MCG BLST.W.DEV 1 PUFF INHALE (20:22)
[2020-10-27] VITALS (8 sets, daily range): BP systolic 143–168; BP diastolic 81–88; PULSE 70–80; RESP 16–18; TEMP 36.4–36.7; O2SAT 95
[2020-10-27 06:53] LABS: Glucose, Whole Blood 266 mg/dL (60-115)
[2020-10-27] MEDS: Insulin Lispro 100 UNIT/ML 3 ML VIAL SUBCUT ×6 (08:35→21:47)
[2020-10-27] MEDS: NaPROXEN 500 MG TABLET PO (08:37)
[2020-10-27] MEDS: clonazePAM 1 MG TABLET PO ×2 (08:37→21:29)
[2020-10-27] MEDS: Gabapentin 300 MG CAPSULE PO ×2 (08:37→21:29)
[2020-10-27] MEDS: amLODIPine Besylate 5 MG TABLET PO (08:38)
[2020-10-27] MEDS: Propranolol HCL 20 MG TABLET PO ×3 (08:38→21:28)
[2020-10-27] MEDS: Aspirin Enteric Coated 81 MG TABLET.DR PO (08:38)
[2020-10-27] MEDS: metFORMIN HCl 1,000 MG TABLET 1000 MG PO ×2 (08:42→17:24)
[2020-10-27] MEDS: Benztropine Mesylate 1 MG TABLET PO ×2 (08:42→21:29)
[2020-10-27] MEDS: Fluticasone Propionate 100 MCG BLST.W.DEV 1 PUFF INHALE ×2 (08:50→21:49)
[2020-10-27 10:45] LABS: MANUAL DIFF FLAG NO
[2020-10-27 10:49] LABS: Basophils Absolute Auto 0.1 X10*3/uL (0.0-0.2); Basophils Percent Auto 1.4 % (0-2); Eosinophils Absolute Auto 0.2 X10*3/uL (0.0-0.4); Eosinophils Percent Auto 2.8 % (0-4); Hemoglobin 12.8 g/dl (12.0-16.0); Imm Gran Abs Auto 0.03 X10*3/uL (0.00-0.03); Imm Gran Pct Auto 0.4 % (0.0-0.4); Lymphocytes Absolute Auto 3.1 X10*3/uL (1.2-4.9); Lymphocytes Percent Auto 38.2 % (20-40); Mean Corpuscular HGB Conc 32.8 g/dl (31.0-35.0); Mean Corpuscular Hemoglobin 28.3 pg (27.0-33.0); Mean Corpuscular Volume 86.1 fL (80-98); Mean Platelet Volume 11.2 fL (9.4-12.3); Monocytes Absolute Auto 0.5 X10*3/uL (0.1-1.2); Monocytes Percent Auto 6.6 % (2-11); Neutrophils Absolute Auto 4.1 X10*3/uL (2.0-8.3); Neutrophils Percent Auto 50.6 % (45-73); Platelet Count 183 X10*3/uL (160-400); Red Blood Count 4.53 X10*6/uL (4.20-5.50); Red Cell Distribution Width 13.8 % (11.0-16.0); White Blood Count 8.1 X10*3/uL (4.8-10.8)
[2020-10-27 11:04] LABS: Estimated Average Glucose 289 mg/dL; Hemoglobin A1c % 11.7 %
[2020-10-27 11:24] LABS: Alanine Aminotransferase 110 U/L (0-31); Alkaline Phosphatase 151 U/L (39-117); Anion Gap 16 (12-20); Aspartate Amino Transferase 108 U/L (5-31); Bilirubin Total 0.8 mg/dL (0.0-1.0); Blood Urea Nitrogen 20 mg/dL (9-16); Calcium 9.1 mg/dL (8.4-10.2); Carbon Dioxide 23 mmol/L (22-29); Chloride 101 mmol/L (96-108); Cholesterol 152 mg/dL; Creatinine Clr Calc Pharmacy 45.1; Estimated Glomerular Filt Rate 53; Glucose Fasting 434 mg/dL (60-99); HDL Cholesterol 34 mg/dL; LDL Cholesterol Calculated 77 mg/dl; Potassium 4.8 mmol/L (3.3-5.1); Sodium 135 mmol/L (135-145); Total Protein 7.8 g/dL (6.5-8.0); Triglycerides 205 mg/dL
[2020-10-27 11:38] LABS: Free T4 (Free Thyroxine) 1.22 ng/dL (0.71-1.85); Thyroid Stimulating Hormone 1.15 uIU/mL (0.32-4.0)
[2020-10-27 12:40] LABS: Glucose, Whole Blood 363 mg/dL (60-115)
--- NOTE | 2020-10-27 14:52 | P.HPPS_ITS ---
HPI Chief Complaint: Bipolar depression Suicidal ideation Sources of Information: patient interviewed, chart reviewed and crisis/core team assessment reviewed HPI Narrative: 60 yr old woman self presented to [facility] reporting auditory hallucinations and SI and HI. Pt is amitted to M5 on CV. She presents with euthymic mood, laughing at times, pleasant, cheerful, and easily engaged; she says that pain in her leg that traveled up to her lower back brought her to the hospital and then pauses and corrects herself saying its the voices. Her speech is superficially logical and pleasant for short period but given open ended questions or time to speak freely she begins to be very tangential and loose. At times she is very illogical. She reports hearing voices and seeing spirits. She reports hearing 8 different voices and only one is scary. She reports feeling depressed. She reports at times feels suicidal but no plan and no intent. Past Psychiatric History: Pt has a long history of Bipolar Disorder, PTSD and record reflects history of Dissociative Identity Disorder. She has services from [facility] and has been seen there outpatient for at least 8 years per pt. Pt has a long list of medications to which she is either allergic or had adverse brady ction. Medical Evaluation Reviewed: Yes medically cleared in [facility] ED note reviewed. Pt has uncontrolled diabetes type 2 [facility] Medical History Asthma Bipolar 1 disorder, depressed, severe Chronic hepatitis C Dementia Diabetic nephropathy Fatty liver GERD (gastroesophageal reflux disease) Hypercholesterolemia Hypertension Obesity (BMI 30-39.9) Polysubstance abuse PTSD (post-traumatic stress disorder) Type 2 diabetes mellitus with hyperglycemia Uterine prolapse Surgical History History of appendectomy History of cholecystectomy History of ectopic History of tonsillectomy Family History: pt reports she lives with memo?e of 30 yrs daughter- dara parents Substance History: pt reports no EOH or drugs x 7 rs. tox screen negative Trauma History: unknown Diagnostics Vital Signs (24Hr): Vital Signs - 24 hr 10/26/20 15:34 10/26/20 19:21 10/26/20 19:23 Temperature 97.7 F 97.7 F Pulse Rate 93 75 75 Respiratory Rate 18 18 Blood Pressure 123/84 134/80 Pulse Oximetry 96 96 10/26/20 20:21 10/27/20 06:30 10/27/20 08:37 Temperature 97.9 F Pulse Rate 78 70 70 Respiratory Rate 16 Blood Pressure 135/78 143/81 H 143/81 H Pulse Oximetry 95 10/27/20 08:38 10/27/20 14:05 10/27/20 14:22 Temperature 97.6 F 97.6 F Pulse Rate 70 80 80 Respiratory Rate 18 18 Blood Pressure 143/81 H 147/88 H 147/88 H Pulse Oximetry 95 95 10/27/20 14:39 Temperature Pulse Rate 80 Respiratory Rate Blood Pressure 147/88 H Pulse Oximetry Body Mass Index 22.8 Labs Results: 10/27/20 10:29 10/27/20 10:30 Labs: Laboratory Results - last 48 hr 10/25/20 10/25/20 10/25/20 21:02 21:25 21:25 WBC 6.7 RBC 4.21 Hgb 12.2 Hct 35.9 L MCV 85.3 MCH 29.0 MCHC 34.0 RDW 13.4 Plt Count 142 L MPV 11.5 Immature Gran % (Auto) 0.1 Neut % (Auto) 48.6 Lymph % (Auto) 39.4 [place] % (Auto) 7.3 Eos % (Auto) 3.6 Baso % (Auto) 1.0 Lymph # (Auto) 2.6 [place] # (Auto) 0.5 Eos # (Auto) 0.2 Baso # (Auto) 0.1 Abs Immat Gran (auto) 0.01 Absolute Neuts (auto) 3.3 Absolute Nucleated RBC 0.000 Nucleated RBC % (auto) 0.0 VBG pH VBG pCO2 VBG pO2 VBG HCO3 VBG O2 Saturation VBG Base Excess Sodium 131 L Potassium 5.2 H Chloride 97 Carbon Dioxide 25 Anion Gap 14 BUN 26 H D Creatinine 1.17 Estim Creat Clear Calc 40.4 Estimated GFR 47 POC Glucose 492 H* Random Glucose 570 H* Fasting Glucose Estimat Average Glucose Hemoglobin A1c % Calcium 9.5 Total Bilirubin AST ALT Alkaline Phosphatase Total Protein Albumin Triglycerides Cholesterol LDL Cholesterol, Calc HDL Cholesterol TSH Free T4 Acetone, Qual Negative COVID-19 (ALDAIR) COVID-19 Clin Com 10/25/20 10/25/20 10/26/20 22:45 23:07 00:23 WBC RBC Hgb Hct MCV MCH MCHC RDW Plt Count MPV Immature Gran % (Auto) Neut % (Auto) Lymph % (Auto) [place] % (Auto) Eos % (Auto) Baso % (Auto) Lymph # (Auto) [place] # (Auto) Eos # (Auto) Baso # (Auto) Abs Immat Gran (auto) Absolute Neuts (auto) Absolute Nucleated RBC Nucleated RBC % (auto) VBG pH 7.37 VBG pCO2 42 VBG pO2 115 VBG HCO3 24 VBG O2 Saturation 98.0 VBG Base Excess -0.2 Sodium Potassium Chloride Carbon Dioxide Anion Gap BUN Creatinine Estim Creat Clear Calc Estimated GFR POC Glucose 452 H* 445 H* Random Glucose Fasting Glucose Estimat Average Glucose Hemoglobin A1c % Calcium Total Bilirubin AST ALT Alkaline Phosphatase Total Protein Albumin Triglycerides Cholesterol LDL Cholesterol, Calc HDL Cholesterol TSH Free T4 Acetone, Qual COVID-19 (ALDAIR) COVID-19 GPNX 10/26/20 10/26/20 10/26/20 01:08 02:19 06:37 WBC RBC Hgb Hct MCV MCH MCHC RDW Plt Count MPV Immature Gran % (Auto) Neut % (Auto) Lymph % (Auto) [place] % (Auto) Eos % (Auto) Baso % (Auto) Lymph # (Auto) [place] # (Auto) Eos # (Auto) Baso # (Auto) Abs Immat Gran (auto) Absolute Neuts (auto) Absolute Nucleated RBC Nucleated RBC % (auto) VBG pH VBG pCO2 VBG pO2 VBG HCO3 VBG O2 Saturation VBG Base Excess Sodium Potassium Chloride Carbon Dioxide Anion Gap BUN Creatinine Estim Creat Clear Calc Estimated GFR POC Glucose 337 H 272 H 251 H Random Glucose Fasting Glucose Estimat Average Glucose Hemoglobin A1c % Calcium Total Bilirubin AST ALT Alkaline Phosphatase Total Protein Albumin Triglycerides Cholesterol LDL Cholesterol, Calc HDL Cholesterol TSH Free T4 Acetone, Qual COVID-19 (ALDAIR) COVID-19 GPNX 10/26/20 10/26/20 10/26/20 08:22 10:23 12:57 WBC RBC Hgb Hct MCV MCH MCHC RDW Plt Count MPV Immature Gran % (Auto) Neut % (Auto) Lymph % (Auto) [place] % (Auto) Eos % (Auto) Baso % (Auto) Lymph # (Auto) [place] # (Auto) Eos # (Auto) Baso # (Auto) Abs Immat Gran (auto) Absolute Neuts (auto) Absolute Nucleated RBC Nucleated RBC % (auto) VBG pH VBG pCO2 VBG pO2 VBG HCO3 VBG O2 Saturation VBG Base Excess Sodium 135 Potassium 4.5 Chloride 102 Carbon Dioxide 22 Anion Gap 16 BUN 19 H Creatinine 0.94 Estim Creat Clear Calc 50.3 Estimated GFR > 60 POC Glucose 347 H Random Glucose 398 H* Fasting Glucose Estimat Average Glucose Hemoglobin A1c % Calcium 8.9 D Total Bilirubin 0.8 AST 78 H ALT 87 H Alkaline Phosphatase 165 H D Total Protein 8.0 Albumin 4.1 Triglycerides Cholesterol LDL Cholesterol, Calc HDL Cholesterol TSH Free T4 Acetone, Qual COVID-19 (ALDAIR) Negative COVID-19 GPNX See Note 10/26/20 10/26/20 10/27/20 16:22 20:08 06:47 WBC RBC Hgb Hct MCV MCH MCHC RDW Plt Count MPV Immature Gran % (Auto) Neut % (Auto) Lymph % (Auto) [place] % (Auto) Eos % (Auto) Baso % (Auto) Lymph # (Auto) [place] # (Auto) Eos # (Auto) Baso # (Auto) Abs Immat Gran (auto) Absolute Neuts (auto) Absolute Nucleated RBC Nucleated RBC % (auto) VBG pH VBG pCO2 VBG pO2 VBG HCO3 VBG O2 Saturation VBG Base Excess Sodium Potassium Chloride Carbon Dioxide Anion Gap BUN Creatinine Estim Creat Clear Calc Estimated GFR POC Glucose 370 H* 365 H* 266 H Random Glucose Fasting Glucose Estimat Average Glucose Hemoglobin A1c % Calcium Total Bilirubin AST ALT Alkaline Phosphatase Total Protein Albumin Triglycerides Cholesterol LDL Cholesterol, Calc HDL Cholesterol TSH Free T4 Acetone, Qual COVID-19 (ALDAIR) COVID-[employer] 10/27/20 10/27/20 10/27/20 10:29 10:29 10:30 WBC 8.1 RBC 4.53 Hgb 12.8 Hct 39.0 MCV 86.1 MCH 28.3 MCHC 32.8 RDW 13.8 Plt Count 183 D MPV 11.2 Immature Gran % (Auto) 0.4 Neut % (Auto) 50.6 Lymph % (Auto) 38.2 [place] % (Auto) 6.6 Eos % (Auto) 2.8 Baso % (Auto) 1.4 Lymph # (Auto) 3.1 [place] # (Auto) 0.5 Eos # (Auto) 0.2 Baso # (Auto) 0.1 Abs Immat Gran (auto) 0.03 Absolute Neuts (auto) 4.1 Absolute Nucleated RBC 0.000 Nucleated RBC % (auto) 0.0 VBG pH VBG pCO2 VBG pO2 VBG HCO3 VBG O2 Saturation VBG Base Excess Sodium 135 Potassium 4.8 Chloride 101 Carbon Dioxide 23 Anion Gap 16 BUN 20 H Creatinine 1.05 Estim Creat Clear Calc 45.1 Estimated GFR 53 POC Glucose Random Glucose Fasting Glucose 434 H* D Estimat Average Glucose 289 Hemoglobin A1c % 11.7 Calcium 9.1 Total Bilirubin 0.8 AST 108 H ALT 110 H Alkaline Phosphatase 151 H Total Protein 7.8 Albumin 4.0 Triglycerides 205 Cholesterol 152 LDL Cholesterol, Calc 77 HDL Cholesterol 34 TSH 1.15 Free T4 1.22 Acetone, Qual COVID-19 (ALDAIR) COVID-19 Clin Com 10/27/20 12:27 WBC RBC Hgb Hct MCV MCH MCHC RDW Plt Count MPV Immature Gran % (Auto) Neut % (Auto) Lymph % (Auto) [place] % (Auto) Eos % (Auto) Baso % (Auto) Lymph # (Auto) [place] # (Auto) Eos # (Auto) Baso # (Auto) Abs Immat Gran (auto) Absolute Neuts (auto) Absolute Nucleated RBC Nucleated RBC % (auto) VBG pH VBG pCO2 VBG pO2 VBG HCO3 VBG O2 Saturation VBG Base Excess Sodium Potassium Chloride Carbon Dioxide Anion Gap BUN Creatinine Estim Creat Clear Calc Estimated GFR POC Glucose 363 H* Random Glucose Fasting Glucose Estimat Average Glucose Hemoglobin A1c % Calcium Total Bilirubin AST ALT Alkaline Phosphatase Total Protein Albumin Triglycerides Cholesterol LDL Cholesterol, Calc HDL Cholesterol TSH Free T4 Acetone, Qual COVID-19 (ALDAIR) COVID-19 Clin Com EKG EKG: reviewed EKG Comment: [address] [id number] ReportSigned Patient: Mouna Najera EMR#: [id number]: 1960Acct:[id number]/Sex: 60 / FADM Date: 10/26/20Loc: [id number] Dr: Evelyn Sierra APRN Ordering Physician: Lionel Doherty NP Date of Service: 10/26/20 Procedure(s): ECG 12 lead EKG Accession Number(s): [id number] cc: Lionel Doherty BENCH HAND~ Test Reason : CARDIAC HISTORY Blood Pressure : / mmHG Vent. Rate : 078 BPM Atrial Rate : 078 BPM P-R Int : 192 ms QRS Dur : 102 ms QT Int : 424 ms P-R-T Axes : 049 -49 064 degrees QTc Int : 483 ms Normal sinus rhythm Left anterior fascicular block Prolonged QT Abnormal ECG When compared with ECG of 04-JUL-2020 08:28, No significant change was found Meds/Allergies Meds Home Medications Acetaminophen (Acetaminophen 325 Mg Tablet) 650 mg PO Q6H PRN PRN Reason: Headache/Pain Mild Scale (1-3) Al Hydroxide/Mg Hydroxide (Magnesium Hydrox/Alum Hydrox 30 Ml Oral.Susp) 30 ml PO Q6H PRN PRN Reason: Heartburn/Nausea Amlodipine Besylate (Amlodipine Besylate 5 Mg Tablet) 5 mg PO DAILY [facility]; Protocol Last Admin: 10/27/20 08:38 Dose: 5 mg Documented by: Aspirin (Aspirin Enteric Coated 81 Mg Tablet.) 81 mg PO DAILY [facility] Last Admin: 10/27/20 08:38 Dose: 81 mg Documented by: Benztropine Mesylate (Benztropine Mesylate 1 Mg Tablet) 1 mg PO BID@0830,2100 [facility] Last Admin: 10/27/20 08:42 Dose: 1 mg Documented by: Clonazepam (Clonazepam 0.5 Mg Tablet) 1 mg PO DAILY PRN PRN Reason: Anxiety Clonazepam (Clonazepam 1 Mg Tablet) 1 mg PO BID [facility] Last Admin: 10/27/20 08:37 Dose: 1 mg Documented by: Clotrimazole (Clotrimazole 1 % Vaginal Cream 45 Gm Tube) 1 appl VAGINAL BEDTIME [facility] Stop: 11/02/20 21:01 Cyclobenzaprine HCl (Cyclobenzaprine Hcl 5 Mg Tablet) 5 mg PO TID PRN PRN Reason: for muscle spasm Fluticasone Propionate (Fluticasone Propionate 100 Mcg Blst.W.Dev) 1 puff IN ROSA RBID [facility] Last Admin: 10/27/20 08:50 Dose: 1 puff Documented by: Gabapentin (Gabapentin 300 Mg Capsule) 300 mg PO BID [facility] Last Admin: 10/27/20 08:37 Dose: 300 mg Documented by: Hydroxyzine HCl (Hydroxyzine Hcl 25 Mg Tablet) 25 mg PO BEDTIME PRN PRN Reason: Anxiety Insulin Human Lispro (Insulin Lispro 100 Unit/Ml 3 Ml Vial) 0 unit SUBCUT QIDACHS [facility]; Protocol Last Admin: 10/27/20 13:23 Dose: 10 unit Documented by: Lisinopril (Lisinopril 20 Mg Tablet) 20 mg PO DAILY [facility]; Protocol Last Admin: 10/27/20 08:37 Dose: 20 mg Documented by: Loperamide HCl (Loperamide Hcl 2 Mg Capsule) 2 mg PO Q6H PRN PRN Reason: for diarrhea Loxapine Succinate (Loxapine Succinate 5 Mg Capsule) 5 mg PO BEDTIME [facility] Last Admin: 10/26/20 20:28 Dose: Not Given Documented by: Magnesium Hydroxide (Milk Of Magnesia 30 Ml Oral.Susp) 30 ml PO DAILY PRN PRN Reason: Constipation Meclizine HCl (Meclizine Hcl 25 Mg Tablet) 25 mg PO DAILY PRN PRN Reason: dizziness Metformin HCl (Metformin Hcl 1,000 Mg Tablet) 1,000 mg PO BIDWM [facility] Last Admin: 10/27/20 08:42 Dose: 1,000 mg Documented by: Naproxen (Naproxen 500 Mg Tablet) 500 mg PO BID [facility] Last Admin: 10/27/20 08:37 Dose: 500 mg Documented by: Non-Formulary Medication (Darifenacin) 7.5 mg PO DAILY [facility] Non-Formulary Medication (Fluticasone Furoate [Arnuity Ellipta]) 1 inhalation PO DAILY [facility] Non-Formulary Medication (Loxapine Succinate) 10 mg PO BID [facility] Propranolol HCl (Propranolol Hcl 20 Mg Tablet) 20 mg PO TID [facility]; Protocol Last Admin: 10/27/20 14:39 Dose: 20 mg Documented by: Allergies Allergies Allergy/AdvReac Type Severity Reaction Status Date / Time haloperidol [HALOPERIDOL] Allergy Intermediate SWELLING Verified 07/14/20 22:44 carbamazepine [From Tegretol] Allergy Mild RASH, Verified 07/14/20 22:44 TREMORS lithium [Weir] Allergy Mild RASH, Verified 07/14/20 22:44 CRAWLING OUT OF SKIN olanzapine [From Zyprexa] Allergy Mild RICHARD Verified 07/14/20 22:44 quetiapine [From Seroquel] Allergy Mild SWELLING Verified 07/14/20 22:44 WHOLE BODY, RICHARD topiramate [From TOPAMAX] Allergy Unknown RICHARD, SI Verified 07/14/20 22:44 trazodone [TRAZODONE] Allergy Unknown SYNCOPE Verified 07/14/20 22:44 aripiprazole [From ABILIFY] AdvReac Severe EXTREME SI Verified 07/14/20 22:44 lamotrigine [From Lamictal] AdvReac Mild RICHARD Verified 07/14/20 22:44 modafinil [From Provigil] AdvReac Mild RICHARD Verified 07/14/20 22:44 ALL ANTI DEPRESSENTS Allergy Unknown I GO Uncoded 06/06/20 14:55 MANIC All anti-depressants Allergy Unknown manic, rash Uncoded 05/02/20 00:00 From GEODON Allergy Unknown LETHARGY Uncoded 06/06/20 14:55 From WELLBUTRIN AdvReac Unknown AGITATION, Uncoded 06/06/20 14:55 MAVIS Mental Status Exam Mental Status Exam Patient Appearance: Disheveled Patient Orientation: Person, Place ([facility] ), Time (states October 162020 ) and Situation (intermittent awarenss of situation ) Level of Consciousness: Awake and Alert Patient Behavior: Appropriate, Talkative, Cooperative and Confused Behavior Comments: befuddled at times Mood Description: Labile Affect Description: Happy and Cheerful Patient Cognition Impaired: Yes Ability to Follow Directions: Good (Simple instructions) Speech Pattern: Spontaneous Speech, Cofabulation (possibly ) and Long Pauses Memory Description: Episodic Impaired Hallucinations: Auditory and Visual Thought Process: Illogical and Word Salad (disjointed phrases, sentences about unrelated topics.) Thought Content: positive for Flight of Ideas, positive for Loose Associations, positive for Thought Blocking and positive for Tangential Depressive Symptoms: Increased Anxiety, Insomnia, Diff. Making Decisions, Changes in Appetite, Isolating-Friends/Family and Difficulty Concentrating Judgement: Poor Assessment & Plan Assessment & Plan (1) GERD (gastroesophageal reflux disease): Status: Acute Code(s): K21.9 - Gastro-esophageal reflux disease without esophagitis (2) Diabetic nephropathy: Status: Acute Code(s): E11.21 - Type 2 diabetes mellitus with diabetic nephropathy (3) Type 2 diabetes mellitus with hyperglycemia: Status: Acute Qualifiers: Diabetes mellitus merchandise worker insulin use: without halfway use Qualified Code(s): E11.65 - Type 2 diabetes mellitus with hyperglycemia Code(s): E11.65 - Type 2 diabetes mellitus with hyperglycemia (4) Obesity (BMI 30-39.9): Status: Acute Code(s): E66.9 - Obesity, unspecified (5) Hypercholesterolemia: Status: Acute Code(s): E78.00 - Pure hypercholesterolemia, unspecified (6) Hypertension: Status: Acute Code(s): I10 - Essential (primary) hypertension (7) PTSD (post-traumatic stress disorder): Status: Acute Code(s): F43.10 - Post-traumatic stress disorder, unspecified (8) Bipolar 1 disorder, depressed, severe: Status: Acute Code(s): F31.4 - Bipolar disorder, current episode depressed, severe, without psychotic features (9) Kaia infection of genital region: Status: Acute Code(s): B37.49 - Other urogenital candidiasis Assessment and Plan: labs ordered POC with sliding scale insulin hospitalist consult for uncontrolled diabetes start on clotrimazole vaginal cream continue psych meds clarify diagnosis/rule out of dementia vs psychosis vs DID Patient educated on: diagnosis, medication risk/benefits, therapeutic strategies and medical condition Informed Consent: does not understand and further education needed Reason for continued inpatient stay Substantial Risk for: harm to self, inability to function and med/psych decompensation
[2020-10-27 15:16] LABS: Glucose, Whole Blood 316 mg/dL (60-115)
[2020-10-27] MEDS: Loperamide HCl 2 MG CAPSULE PO (16:07)
[2020-10-27 16:59] LABS: Glucose, Whole Blood 298 mg/dL (60-115)
[2020-10-27] MEDS: Insulin Glargine,Hum.rec.anlog 100 UNIT/ML 10 ML VIAL SUBCUT (17:26)
[2020-10-27 20:57] LABS: Glucose, Whole Blood 285 mg/dL (60-115)
[2020-10-27] MEDS: Clotrimazole 1 % Vaginal Cream 45 GM TUBE 1 APPL VAGINAL (21:50)
[2020-10-28 06:13] LABS: Glucose, Whole Blood 228 mg/dL (60-115)
[2020-10-28 06:25] VITALS: BP 148/76; PULSE 62; RESP 16; TEMP 36.7; O2SAT 94
[2020-10-28 07:50] LABS: Glucose, Whole Blood 385 mg/dL (60-115)
[2020-10-28] MEDS: Insulin Glargine,Hum.rec.anlog 100 UNIT/ML 10 ML VIAL SUBCUT (08:20)
[2020-10-28] MEDS: Insulin Lispro 100 UNIT/ML 3 ML VIAL SUBCUT ×8 (08:21→22:22)
[2020-10-28 08:22] VITALS: BP 148/76; PULSE 62
[2020-10-28] MEDS: metFORMIN HCl 1,000 MG TABLET 1000 MG PO ×2 (08:22→16:59)
[2020-10-28] MEDS: Gabapentin 300 MG CAPSULE PO ×2 (08:22→22:20)
[2020-10-28] MEDS: Aspirin Enteric Coated 81 MG TABLET.DR PO (08:22)
[2020-10-28] MEDS: amLODIPine Besylate 5 MG TABLET PO (08:22)
[2020-10-28] MEDS: Propranolol HCL 20 MG TABLET PO ×3 (08:22→22:21)
[2020-10-28] MEDS: clonazePAM 1 MG TABLET PO ×2 (08:23→22:20)
[2020-10-28] MEDS: Benztropine Mesylate 1 MG TABLET PO ×2 (08:25→22:21)
[2020-10-28] MEDS: Fluticasone Propionate 100 MCG BLST.W.DEV 1 PUFF INHALE ×2 (08:46→22:28)
[2020-10-28 12:01] LABS: Glucose, Whole Blood 391 mg/dL (60-115)
[2020-10-28] MEDS: Acetaminophen 325 MG TABLET 650 MG PO (13:53)
[2020-10-28 13:55] VITALS: BP 128/73
--- NOTE | 2020-10-28 16:05 | HO.PSYCHPN ---
Subjective Subjective Date of Service: 10/28/20 Reason For Visit: Bipolar depression Suicidal ideation Subjective Notes: Conditional Voluntary Interim History: Pt reports hearing voices. She states she has heard voices for decades, multiple medication trials. She reports multiple side effects. She thinks current antipsychotic, Loxapine has been most effective. However, she continues to hear voices intermittently. She denies any plan or intent to hurt herself. She states she does not act on what voices are telling her to do. She denies SI/HI. But states at home she was feeling very overwhelmed, and tortured by voices. Medication Compliance: Yes Side effects from medications: No Attending Groups: Intermittent Review of Systems Review of Systems Yes all other systems are reviewed and are negative Mental Status Exam Mental Status Exam Narrative: TP: derailment at times TC: hearing voices, no suicidal at the moment. Mood: good Affect: constricted but congruent Patient Appearance: Disheveled Level of Consciousness: Awake and Alert Patient Behavior: Appropriate, Talkative and Cooperative Mood Description: Anxious Affect Description: Anxious Patient Cognition Impaired: Yes Ability to Follow Directions: Good (Simple instructions) Speech Pattern: Clear, Spontaneous Speech and Long Pauses Memory Description: Episodic Impaired Hallucinations: Auditory Judgement: Poor Diagnostics Vital Signs (24Hr): Vital Signs - 24 hr 10/27/20 20:30 10/27/20 21:28 10/28/20 06:25 Temperature 98.0 F 98.1 F Pulse Rate 74 74 62 Respiratory Rate 16 Blood Pressure 168/87 H 168/87 H 148/76 H Pulse Oximetry 94 10/28/20 08:22 10/28/20 13:55 Temperature Pulse Rate 62 Respiratory Rate Blood Pressure 148/76 H 128/73 Pulse Oximetry Body Mass Index 22.8 Labs Results: 10/27/20 10:29 10/27/20 10:30 Labs: Laboratory Results - last 48 hr 10/26/20 10/26/20 10/26/20 09:54 16:22 20:08 WBC RBC Hgb Hct MCV MCH MCHC RDW Plt Count MPV Immature Gran % (Auto) Neut % (Auto) Lymph % (Auto) [place] % (Auto) Eos % (Auto) Baso % (Auto) Lymph # (Auto) [place] # (Auto) Eos # (Auto) Baso # (Auto) Abs Immat Gran (auto) Absolute Neuts (auto) Absolute Nucleated RBC Nucleated RBC % (auto) Sodium Potassium Chloride Carbon Dioxide Anion Gap BUN Creatinine Estim Creat Clear Calc Estimated GFR POC Glucose 385 H* 370 H* 365 H* Fasting Glucose Estimat Average Glucose Hemoglobin A1c % Calcium Total Bilirubin AST ALT Alkaline Phosphatase Total Protein Albumin Triglycerides Cholesterol LDL Cholesterol, Calc HDL Cholesterol TSH Free T4 10/27/20 10/27/20 10/27/20 06:47 10:29 10:29 WBC 8.1 RBC 4.53 Hgb 12.8 Hct 39.0 MCV 86.1 MCH 28.3 MCHC 32.8 RDW 13.8 Plt Count 183 D MPV 11.2 Immature Gran % (Auto) 0.4 Neut % (Auto) 50.6 Lymph % (Auto) 38.2 [place] % (Auto) 6.6 Eos % (Auto) 2.8 Baso % (Auto) 1.4 Lymph # (Auto) 3.1 [place] # (Auto) 0.5 Eos # (Auto) 0.2 Baso # (Auto) 0.1 Abs Immat Gran (auto) 0.03 Absolute Neuts (auto) 4.1 Absolute Nucleated RBC 0.000 Nucleated RBC % (auto) 0.0 Sodium Potassium Chloride Carbon Dioxide Anion Gap BUN Creatinine Estim Creat Clear Calc Estimated GFR POC Glucose 266 H Fasting Glucose Estimat Average Glucose 289 Hemoglobin A1c % 11.7 Calcium Total Bilirubin AST ALT Alkaline Phosphatase Total Protein Albumin Triglycerides Cholesterol LDL Cholesterol, Calc HDL Cholesterol TSH Free T4 10/27/20 10/27/20 10/27/20 10:30 12:27 15:11 WBC RBC Hgb Hct MCV MCH MCHC RDW Plt Count MPV Immature Gran % (Auto) Neut % (Auto) Lymph % (Auto) [place] % (Auto) Eos % (Auto) Baso % (Auto) Lymph # (Auto) [place] # (Auto) Eos # (Auto) Baso # (Auto) Abs Immat Gran (auto) Absolute Neuts (auto) Absolute Nucleated RBC Nucleated RBC % (auto) Sodium 135 Potassium 4.8 Chloride 101 Carbon Dioxide 23 Anion Gap 16 BUN 20 H Creatinine 1.05 Estim Creat Clear Calc 45.1 Estimated GFR 53 POC Glucose 363 H* 316 H Fasting Glucose 434 H* D Estimat Average Glucose Hemoglobin A1c % Calcium 9.1 Total Bilirubin 0.8 AST 108 H ALT 110 H Alkaline Phosphatase 151 H Total Protein 7.8 Albumin 4.0 Triglycerides 205 Cholesterol 152 LDL Cholesterol, Calc 77 HDL Cholesterol 34 TSH 1.15 Free T4 1.22 10/27/20 10/27/20 10/28/20 16:45 20:44 06:08 WBC RBC Hgb Hct MCV MCH MCHC RDW Plt Count MPV Immature Gran % (Auto) Neut % (Auto) Lymph % (Auto) [place] % (Auto) Eos % (Auto) Baso % (Auto) Lymph # (Auto) [place] # (Auto) Eos # (Auto) Baso # (Auto) Abs Immat Gran (auto) Absolute Neuts (auto) Absolute Nucleated RBC Nucleated RBC % (auto) Sodium Potassium Chloride Carbon Dioxide Anion Gap BUN Creatinine Estim Creat Clear Calc Estimated GFR POC Glucose 298 H 285 H 228 H Fasting Glucose Estimat Average Glucose Hemoglobin A1c % Calcium Total Bilirubin AST ALT Alkaline Phosphatase Total Protein Albumin Triglycerides Cholesterol LDL Cholesterol, Calc HDL Cholesterol TSH Free T4 10/28/20 11:56 WBC RBC Hgb Hct MCV MCH MCHC RDW Plt Count MPV Immature Gran % (Auto) Neut % (Auto) Lymph % (Auto) [place] % (Auto) Eos % (Auto) Baso % (Auto) Lymph # (Auto) [place] # (Auto) Eos # (Auto) Baso # (Auto) Abs Immat Gran (auto) Absolute Neuts (auto) Absolute Nucleated RBC Nucleated RBC % (auto) Sodium Potassium Chloride Carbon Dioxide Anion Gap BUN Creatinine Estim Creat Clear Calc Estimated GFR POC Glucose 391 H* Fasting Glucose Estimat Average Glucose Hemoglobin A1c % Calcium Total Bilirubin AST ALT Alkaline Phosphatase Total Protein Albumin Triglycerides Cholesterol LDL Cholesterol, Calc HDL Cholesterol TSH Free T4 Medications Medications Current Medications Generic Name Dose Route Start Last Admin Trade Name Freq PRN Reason Stop Dose Admin Acetaminophen 650 mg 10/26/20 11:20 10/28/20 13:53 Acetaminophen 325 Mg Tablet PO 650 mg Q6H PRN Administration Headache/Pain Mild Scale (1-3) Al Hydroxide/Mg Hydroxide 30 ml 10/26/20 11:20 Magnesium Hydrox/Alum Hydrox 30 Ml Oral.Susp PO Q6H PRN Heartburn/Nausea Amlodipine Besylate 5 mg 10/27/20 09:00 10/28/20 08:22 Amlodipine Besylate 5 Mg Tablet PO 5 mg DAILY TARYN Administration Protocol Aspirin 81 mg 10/27/20 09:00 10/28/20 08:22 Aspirin Enteric Coated 81 Mg Tablet.Dr PO 81 mg DAILY TARYN Administration Benztropine Mesylate 1 mg 10/26/20 21:00 10/28/20 08:25 Benztropine Mesylate 1 Mg Tablet PO 1 mg BID@0830,2100 TARYN Administration Clonazepam 1 mg 10/26/20 09:44 Clonazepam 0.5 Mg Tablet PO DAILY PRN Anxiety Clonazepam 1 mg 10/26/20 21:00 10/28/20 08:23 Clonazepam 1 Mg Tablet PO 1 mg BID TARYN Administration Clotrimazole 1 appl 10/27/20 21:00 10/27/20 21:50 Clotrimazole 1 % Vaginal Cream 45 Gm Tube VAGINAL 11/02/20 21:01 1 appl BEDTIME TARYN Administration Cyclobenzaprine HCl 5 mg 10/26/20 11:28 Cyclobenzaprine Hcl 5 Mg Tablet PO TID PRN for muscle spasm Fluticasone Propionate 1 puff 10/26/20 20:00 10/28/20 08:46 Fluticasone Propionate 100 Mcg Blst.W.Dev INHALE 1 puff RBID TARYN Administration Gabapentin 300 mg 10/26/20 21:00 10/28/20 08:22 Gabapentin 300 Mg Capsule PO 300 mg BID TARYN Administration Hydroxyzine HCl 25 mg 10/26/20 11:20 Hydroxyzine Hcl 25 Mg Tablet PO BEDTIME PRN Anxiety Insulin Glargine 5 unit 10/27/20 16:15 10/28/20 08:20 Insulin Glargine,Hum.Rec.Anlog 100 Unit/Ml 10 Ml Vial SUBCUT 5 unit DAILY [facility] Administration Insulin Human Lispro 0 unit 10/26/20 16:30 10/28/20 12:16 Insulin Lispro 100 Unit/Ml 3 Ml Vial SUBCUT 10 unit QIDACHS [facility] Administration Protocol Insulin Human Lispro 2 unit 10/27/20 16:30 10/28/20 12:16 Insulin Lispro 100 Unit/Ml 3 Ml Vial SUBCUT 2 unit QIDACHS [facility] Administration Lisinopril 20 mg 10/27/20 09:00 10/28/20 08:22 Lisinopril 20 Mg Tablet PO 20 mg DAILY [facility] Administration Protocol Loperamide HCl 2 mg 10/26/20 09:44 10/27/20 16:07 Loperamide Hcl 2 Mg Capsule PO 2 mg Q6H PRN Administration for diarrhea Loxapine Succinate 5 mg 10/26/20 21:00 10/27/20 22:00 Loxapine Succinate 5 Mg Capsule PO Not Given BEDTIME [facility] Magnesium Hydroxide 30 ml 10/26/20 11:20 Milk Of Magnesia 30 Ml Oral.Susp PO DAILY PRN Constipation Meclizine HCl 25 mg 10/26/20 09:44 Meclizine Hcl 25 Mg Tablet PO DAILY PRN dizziness Metformin HCl 1,000 mg 10/26/20 17:00 10/28/20 08:22 Metformin Hcl 1,000 Mg Tablet PO 1,000 mg BIDWM TARYN Administration Non-Formulary Medication 7.5 mg 10/27/20 09:00 Darifenacin PO DAILY [facility] Non-Formulary Medication 1 inhalation 10/27/20 09:00 Fluticasone Furoate [Arnuity Ellipta] PO DAILY [facility] Non-Formulary Medication 10 mg 10/26/20 21:00 Loxapine Succinate PO BID [facility] Propranolol HCl 20 mg 10/26/20 15:00 10/28/20 13:55 Propranolol Hcl 20 Mg Tablet PO 20 mg TID [facility] Administration Protocol Allergies Allergies Allergy/AdvReac Type Severity Reaction Status Date / Time haloperidol [HALOPERIDOL] Allergy Intermediate SWELLING Verified 07/14/20 22:44 carbamazepine [From Tegretol] Allergy Mild RASH, Verified 07/14/20 22:44 TREMORS lithium [[place]] Allergy Mild RASH, Verified 07/14/20 22:44 CRAWLING OUT OF SKIN olanzapine [From Zyprexa] Allergy Mild RICHARD Verified 07/14/20 22:44 quetiapine [From Seroquel] Allergy Mild SWELLING Verified 07/14/20 22:44 WHOLE BODY, RICHARD topiramate [From TOPAMAX] Allergy Unknown RICHARD, SI Verified 07/14/20 22:44 trazodone [TRAZODONE] Allergy Unknown SYNCOPE Verified 07/14/20 22:44 aripiprazole [From ABILIFY] AdvReac Severe EXTREME SI Verified 07/14/20 22:44 lamotrigine [From Lamictal] AdvReac Mild RICHARD Verified 07/14/20 22:44 modafinil [From Provigil] AdvReac Mild RICHARD Verified 07/14/20 22:44 ALL ANTI DEPRESSENTS Allergy Unknown I GO Uncoded 06/06/20 14:55 MANIC All anti-depressants Allergy Unknown manic, rash Uncoded 05/02/20 00:00 From GEODON Allergy Unknown LETHARGY Uncoded 06/06/20 14:55 From WELLBUTRIN AdvReac Unknown AGITATION, Uncoded 06/06/20 14:55 MAVIS Assessment & Plan Assessment & Plan (1) GERD (gastroesophageal reflux disease): Status: Acute Code(s): K21.9 - Gastro-esophageal reflux disease without esophagitis (2) Diabetic nephropathy: Status: Acute Code(s): E11.21 - Type 2 diabetes mellitus with diabetic nephropathy (3) Type 2 diabetes mellitus with hyperglycemia: Qualifiers: Diabetes mellitus regional intermodal 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 insulin use: without regional intermodal 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 use Qualified Code(s): E11.65 - Type 2 diabetes mellitus with hyperglycemia Status: Acute Code(s): E11.65 - Type 2 diabetes mellitus with hyperglycemia (4) Obesity (BMI 30-39.9): Status: Acute Code(s): E66.9 - Obesity, unspecified (5) Hypercholesterolemia: Status: Acute Code(s): E78.00 - Pure hypercholesterolemia, unspecified (6) Hypertension: Status: Acute Code(s): I10 - Essential (primary) hypertension (7) PTSD (post-traumatic stress disorder): Status: Acute Code(s): F43.10 - Post-traumatic stress disorder, unspecified (8) Kaia infection of genital region: Status: Acute Code(s): B37.49 - Other urogenital candidiasis (9) Schizoaffective disorder, bipolar type: Status: Acute Code(s): F25.0 - Schizoaffective disorder, bipolar type Assessment and Plan: Pt has hx of schizoaffective d/o, MRI does show microvascular changes/overall atrophy consistent with memory/cognitive impairements. 1. Continue Loxepine 2. Obtain collateral information Greater than 50% of the session was spent on counseling and/or coordination of care Reason for contiued inpatient stay Substantial Risk for: harm to self and inability to function
[2020-10-28 17:12] LABS: Glucose, Whole Blood 218 mg/dL (60-115)
[2020-10-28 18:00] VITALS: BP 116/67; PULSE 73; TEMP 36.4
[2020-10-28] MEDS: clonazePAM 0.5 MG TABLET 1 MG PO (18:44)
[2020-10-28] MEDS: Loperamide HCl 2 MG CAPSULE PO (19:45)
[2020-10-28 22:01] LABS: Glucose, Whole Blood 281 mg/dL (60-115)
[2020-10-28 22:21] VITALS: BP 116/67; PULSE 63
[2020-10-28] MEDS: Clotrimazole 1 % Vaginal Cream 45 GM TUBE 1 APPL VAGINAL (22:29)
[2020-10-29 04:45] VITALS: BP 124/78; PULSE 66; RESP 18; TEMP 36.2; O2SAT 96
[2020-10-29 06:17] LABS: Glucose, Whole Blood 175 mg/dL (60-115)
[2020-10-29] MEDS: Insulin Lispro 100 UNIT/ML 3 ML VIAL SUBCUT ×7 (08:36→20:27)
[2020-10-29] MEDS: Insulin Glargine,Hum.rec.anlog 100 UNIT/ML 10 ML VIAL SUBCUT (08:36)
[2020-10-29 08:38] VITALS: BP 124/78; PULSE 66
[2020-10-29] MEDS: Propranolol HCL 20 MG TABLET PO ×3 (08:38→20:28)
[2020-10-29] MEDS: Aspirin Enteric Coated 81 MG TABLET.DR PO (08:38)
[2020-10-29] MEDS: metFORMIN HCl 1,000 MG TABLET 1000 MG PO ×2 (08:38→17:02)
[2020-10-29] MEDS: Gabapentin 300 MG CAPSULE PO ×2 (08:38→20:26)
[2020-10-29 08:39] VITALS: BP 124/78; PULSE 66
[2020-10-29] MEDS: clonazePAM 1 MG TABLET PO ×2 (08:39→20:26)
[2020-10-29] MEDS: amLODIPine Besylate 5 MG TABLET PO (08:39)
[2020-10-29] MEDS: Fluticasone Propionate 100 MCG BLST.W.DEV 1 PUFF INHALE ×2 (08:41→20:13)
[2020-10-29] MEDS: Benztropine Mesylate 1 MG TABLET PO ×2 (09:12→20:26)
[2020-10-29 11:53] LABS: Glucose, Whole Blood 357 mg/dL (60-115)
[2020-10-29] MEDS: Insulin Glargine,Hum.rec.anlog 100 UNIT/ML 10 ML VIAL 8 UNIT SUBCUT (13:15)
[2020-10-29 14:11] VITALS: BP 123/81; PULSE 84
--- NOTE | 2020-10-29 16:23 | P.PNPSI_ITS ---
Subjective Subjective Date of Service: 10/29/20 Reason For Visit: Bipolar depression Suicidal ideation Interim History: Pt continues to report voices. She reports she has heard these voices for several years and even when she takes medications she continues to hear voices. She denies SI/HI. She reports sleeping and eating well. She reports that she has learned to cope with the voices over the years. She reports she is feeling better in that she is less depressed and not suicidal and feels ready to go home. We dsicussed pending collateral information from family and her senior living psychiatrist, Dr. Lopez. She has been visible in the unit, social with select peers. No behavioral concerns. Review of Systems Review of Systems Yes all other systems are reviewed and are negative Mental Status Exam Mental Status Exam Narrative: TP: derailment at times TC: hearing voices, no suicidal at the moment. Mood: good Affect: constricted but congruent AH/VH: positive Delusions: none Insight/judgment: poor x 3. Memory/cog: alert, fluctuating levels of orientation. She is oriented to situation, place, not year or month. Patient Appearance: Disheveled Patient Orientation: Person, Place ([facility] ), Time (states October 162020 ) and Situation (intermittent awarenss of situation ) Level of Consciousness: Awake and Alert Patient Behavior: Appropriate, Talkative and Cooperative Behavior Comments: befuddled at times Mood Description: Anxious Affect Description: Anxious Patient Cognition Impaired: Yes Ability to Follow Directions: Good (Simple instructions) Speech Pattern: Clear, Spontaneous Speech and Long Pauses Memory Description: Episodic Impaired Diagnostics Vital Signs (24Hr): Vital Signs - 24 hr 10/28/20 18:00 10/28/20 22:21 10/29/20 04:45 Temperature 97.5 F 97.1 F Pulse Rate 73 63 66 Respiratory Rate 18 Blood Pressure 116/67 116/67 124/78 Pulse Oximetry 96 10/29/20 08:38 10/29/20 08:39 10/29/20 14:11 Temperature Pulse Rate 66 66 84 Respiratory Rate Blood Pressure 124/78 124/78 123/81 Pulse Oximetry Body Mass Index 22.8 Labs Results: 10/27/20 10:29 10/27/20 10:30 Labs: Laboratory Results - last 48 hr 10/26/20 10/27/20 10/27/20 09:54 16:45 20:44 POC Glucose 385 H* 298 H 285 H 10/28/20 10/28/20 10/28/20 06:08 11:56 16:33 POC Glucose 228 H 391 H* 218 H 10/28/20 10/29/20 10/29/20 21:56 06:14 11:50 POC Glucose 281 H 175 H 357 H* Medications Medications Current Medications Generic Name Dose Route Start Last Admin Trade Name Freq PRN Reason Stop Dose Admin Acetaminophen 650 mg 10/26/20 11:20 10/28/20 13:53 Acetaminophen 325 Mg Tablet PO 650 mg Q6H PRN Administration Headache/Pain Mild Scale (1-3) Al Hydroxide/Mg Hydroxide 30 ml 10/26/20 11:20 Magnesium Hydrox/Alum Hydrox 30 Ml Oral.Susp PO Q6H PRN Heartburn/Nausea Amlodipine Besylate 5 mg 10/27/20 09:00 10/29/20 08:39 Amlodipine Besylate 5 Mg Tablet PO 5 mg DAILY TARYN Administration Protocol Aspirin 81 mg 10/27/20 09:00 10/29/20 08:38 Aspirin Enteric Coated 81 Mg Tablet. PO 81 mg DAILY TARYN Administration Benztropine Mesylate 1 mg 10/26/20 21:00 10/29/20 09:12 Benztropine Mesylate 1 Mg Tablet PO 1 mg BID@0830,2100 TARYN Administration Clonazepam 1 mg 10/26/20 09:44 10/28/20 18:44 Clonazepam 0.5 Mg Tablet PO 1 mg DAILY PRN Administration Anxiety Clonazepam 1 mg 10/26/20 21:00 10/29/20 08:39 Clonazepam 1 Mg Tablet PO 1 mg BID TARYN Administration Clotrimazole 1 appl 10/27/20 21:00 10/28/20 22:29 Clotrimazole 1 % Vaginal Cream 45 Gm Tube VAGINAL 11/02/20 21:01 1 appl BEDTIME TARYN Administration Cyclobenzaprine HCl 5 mg 10/26/20 11:28 Cyclobenzaprine Hcl 5 Mg Tablet PO TID PRN for muscle spasm Fluticasone Propionate 1 puff 10/26/20 20:00 10/29/20 08:41 Fluticasone Propionate 100 Mcg Blst.W.Dev INHALE 1 puff RBID TARYN Administration Gabapentin 300 mg 10/26/20 21:00 10/29/20 08:38 Gabapentin 300 Mg Capsule PO 300 mg BID [facility] Administration Hydroxyzine HCl 25 mg 10/26/20 11:20 Hydroxyzine Hcl 25 Mg Tablet PO BEDTIME PRN Anxiety Insulin Glargine 10 unit 10/30/20 09:00 Insulin Glargine,Hum.Rec.Anlog 100 Unit/Ml 10 Ml Vial SUBCUT DAILY [facility] Insulin Human Lispro 0 unit 10/26/20 16:30 10/29/20 11:56 Insulin Lispro 100 Unit/Ml 3 Ml Vial SUBCUT 10 unit QIDAS [facility] Administration Protocol Insulin Human Lispro 2 unit 10/27/20 16:30 10/29/20 11:55 Insulin Lispro 100 Unit/Ml 3 Ml Vial SUBCUT 2 unit QIDAS [facility] Administration Lisinopril 20 mg 10/27/20 09:00 10/29/20 08:38 Lisinopril 20 Mg Tablet PO 20 mg DAILY [facility] Administration Protocol Loperamide HCl 2 mg 10/26/20 09:44 10/28/20 19:45 Loperamide Hcl 2 Mg Capsule PO 2 mg Q6H PRN Administration for diarrhea Loxapine Succinate 5 mg 10/26/20 21:00 10/28/20 23:30 Loxapine Succinate 5 Mg Capsule PO Not Given BEDTIME [facility] Magnesium Hydroxide 30 ml 10/26/20 11:20 Milk Of Magnesia 30 Ml Oral.Susp PO DAILY PRN Constipation Meclizine HCl 25 mg 10/26/20 09:44 Meclizine Hcl 25 Mg Tablet PO DAILY PRN dizziness Metformin HCl 1,000 mg 10/26/20 17:00 10/29/20 08:38 Metformin Hcl 1,000 Mg Tablet PO 1,000 mg BIDWM [facility] Administration Non-Formulary Medication 7.5 mg 10/27/20 09:00 Darifenacin PO DAILY [facility] Non-Formulary Medication 1 inhalation 10/27/20 09:00 Fluticasone Furoate [Arnuity Ellipta] PO DAILY [facility] Non-Formulary Medication 10 mg 10/26/20 21:00 Loxapine Succinate PO BID [facility] Propranolol HCl 20 mg 10/26/20 15:00 10/29/20 14:11 Propranolol Hcl 20 Mg Tablet PO 20 mg TID [facility] Administration Protocol Allergies Allergies Allergy/AdvReac Type Severity Reaction Status Date / Time haloperidol [HALOPERIDOL] Allergy Intermediate SWELLING Verified 07/14/20 22:44 carbamazepine [From Tegretol] Allergy Mild RASH, Verified 07/14/20 22:44 TREMORS lithium [[place]] Allergy Mild RASH, Verified 07/14/20 22:44 CRAWLING OUT OF SKIN olanzapine [From Zyprexa] Allergy Mild RICHARD Verified 07/14/20 22:44 quetiapine [From Seroquel] Allergy Mild SWELLING Verified 07/14/20 22:44 WHOLE BODY, RICHARD topiramate [From TOPAMAX] Allergy Unknown RICHARD, SI Verified 07/14/20 22:44 trazodone [TRAZODONE] Allergy Unknown SYNCOPE Verified 07/14/20 22:44 aripiprazole [From ABILIFY] AdvReac Severe EXTREME SI Verified 07/14/20 22:44 lamotrigine [From Lamictal] AdvReac Mild RICHARD Verified 07/14/20 22:44 modafinil [From Provigil] AdvReac Mild RICHARD Verified 07/14/20 22:44 ALL ANTI DEPRESSENTS Allergy Unknown I GO Uncoded 06/06/20 14:55 MANIC All anti-depressants Allergy Unknown manic, rash Uncoded 05/02/20 00:00 From GEODON Allergy Unknown LETHARGY Uncoded 06/06/20 14:55 From WELLBUTRIN AdvReac Unknown AGITATION, Uncoded 06/06/20 14:55 MAVIS Assessment & Plan Assessment & Plan (1) GERD (gastroesophageal reflux disease): Status: Acute Code(s): K21.9 - Gastro-esophageal reflux disease without esophagitis (2) Diabetic nephropathy: Status: Acute Code(s): E11.21 - Type 2 diabetes mellitus with diabetic nephropathy (3) Type 2 diabetes mellitus with hyperglycemia: Qualifiers: Diabetes mellitus intermediate teacher insulin use: without intermediate teacher use Qualified Code(s): E11.65 - Type 2 diabetes mellitus with hyperglycemia Status: Acute Code(s): E11.65 - Type 2 diabetes mellitus with hyperglycemia (4) Obesity (BMI 30-39.9): Status: Acute Code(s): E66.9 - Obesity, unspecified (5) Hypercholesterolemia: Status: Acute Code(s): E78.00 - Pure hypercholesterolemia, unspecified (6) Hypertension: Status: Acute Code(s): I10 - Essential (primary) hypertension (7) PTSD (post-traumatic stress disorder): Status: Acute Code(s): F43.10 - Post-traumatic stress disorder, unspecified (8) Kaia infection of genital region: Status: Acute Code(s): B37.49 - Other urogenital candidiasis (9) Schizoaffective disorder, bipolar type: Status: Acute Code(s): F25.0 - Schizoaffective disorder, bipolar type Assessment and Plan: Pt has hx of schizoaffective d/o, MRI does show microvascular changes/overall atrophy consistent with memory/cognitive impairements. 1. Continue Loxepine 2. Obtain collateral information Greater than 50% of the session was spent on counseling and/or coordination of care Reason for contiued inpatient stay Substantial Risk for: harm to self
[2020-10-29 17:14] LABS: Glucose, Whole Blood 138 mg/dL (60-115)
[2020-10-29 17:31] VITALS: BP 138/86; PULSE 65; TEMP 36.3
[2020-10-29] MEDS: Clotrimazole 1 % Vaginal Cream 45 GM TUBE 1 APPL VAGINAL (20:13)
[2020-10-29 20:22] LABS: Glucose, Whole Blood 243 mg/dL (60-115)
[2020-10-29 20:28] VITALS: BP 118/71; PULSE 74
[2020-10-30 06:20] VITALS: BP 120/69; PULSE 66; RESP 18; TEMP 36.7; O2SAT 97
[2020-10-30 06:24] LABS: Glucose, Whole Blood 173 mg/dL (60-115)
[2020-10-30 09:15] VITALS: BP 120/69; PULSE 66
[2020-10-30] MEDS: Aspirin Enteric Coated 81 MG TABLET.DR PO (09:15)
[2020-10-30] MEDS: clonazePAM 1 MG TABLET PO ×2 (09:15→20:51)
[2020-10-30] MEDS: Gabapentin 300 MG CAPSULE PO ×2 (09:15→20:51)
[2020-10-30] MEDS: amLODIPine Besylate 5 MG TABLET PO (09:15)
[2020-10-30] MEDS: Propranolol HCL 20 MG TABLET PO ×3 (09:15→20:52)
[2020-10-30] MEDS: metFORMIN HCl 1,000 MG TABLET 1000 MG PO ×2 (09:15→16:55)
[2020-10-30] MEDS: Benztropine Mesylate 1 MG TABLET PO ×2 (09:16→20:51)
[2020-10-30] MEDS: Insulin Glargine,Hum.rec.anlog 100 UNIT/ML 10 ML VIAL 10 UNIT SUBCUT (09:17)
[2020-10-30] MEDS: Insulin Lispro 100 UNIT/ML 3 ML VIAL SUBCUT ×7 (09:20→20:48)
[2020-10-30] MEDS: Fluticasone Propionate 100 MCG BLST.W.DEV 1 PUFF INHALE ×2 (09:31→20:46)
[2020-10-30 11:58] LABS: Glucose, Whole Blood 388 mg/dL (60-115)
[2020-10-30 15:13] VITALS: BP 117/75; PULSE 77
[2020-10-30 15:48] LABS: Influenza A PCR NEGATIVE (Negative); Influenza B PCR NEGATIVE (Negative); Resp Syncy Virus RNA Qual PCR NEGATIVE (Negative); SARS COV2 PCR INHOUSE NEGATIVE (Negative)
--- NOTE | 2020-10-30 16:09 | HO.PSYCHPN ---
Subjective Subjective Date of Service: 10/30/20 Reason For Visit: Bipolar depression Suicidal ideation Interim History: Pt presents with bright affect, non labile. She is pleasant on approach. She reports she continues to hear voices, as usual. She reports she tries to ignore them. She describes mood as good. She denies suicidal or homicidal ideation. She reports some small improvement in ability to retain some information longer- not sure if this is accurate as pt very forgetful with poor attention as seen in groups. She has been visible in the unit, social with select peers. No behavioral concerns. She denies SI/HI. Left VM to Dr. Lopez at [facility]. Review of Systems Review of Systems Yes all other systems are reviewed and are negative Mental Status Exam Mental Status Exam Narrative: TP: derailment at times TC: hearing voices, no suicidal at the moment. Mood: good Affect: constricted but congruent AH/VH: positive Delusions: none Insight/judgment: poor x 3. Memory/cog: alert, fluctuating levels of orientation. She is oriented to situation, place, not year or month. Patient Appearance: Disheveled Patient Orientation: Person, Place ([facility] ), Time (states October 162020 ) and Situation (intermittent awarenss of situation ) Level of Consciousness: Awake and Alert Patient Behavior: Appropriate, Talkative and Cooperative Behavior Comments: befuddled at times Mood Description: Anxious Affect Description: Anxious Patient Cognition Impaired: Yes Ability to Follow Directions: Good (Simple instructions) Speech Pattern: Clear, Spontaneous Speech and Long Pauses Memory Description: Episodic Impaired Diagnostics Vital Signs (24Hr): Vital Signs - 24 hr 10/29/20 17:31 10/29/20 20:28 10/30/20 06:20 Temperature 97.3 F 98.1 F Pulse Rate 65 74 66 Respiratory Rate 18 Blood Pressure 138/86 118/71 120/69 Pulse Oximetry 97 10/30/20 09:15 10/30/20 15:13 Temperature Pulse Rate 66 77 Respiratory Rate Blood Pressure 120/69 117/75 Pulse Oximetry Body Mass Index 22.8 Labs Results: 10/27/20 10:29 10/27/20 10:30 Labs: Laboratory Results - last 48 hr 10/28/20 10/28/20 10/29/20 16:33 21:56 06:14 POC Glucose 218 H 281 H 175 H Coronavirus (PCR) Influenza Type A (PCR) Influenza Type B (PCR) RSV RNA Qual (PCR) 10/29/20 10/29/20 10/29/20 11:50 16:56 20:19 POC Glucose 357 H* 138 H 243 H Coronavirus (PCR) Influenza Type A (PCR) Influenza Type B (PCR) RSV RNA Qual (PCR) 10/30/20 10/30/20 10/30/20 06:21 11:49 14:51 POC Glucose 173 H 388 H* Coronavirus (PCR) NEGATIVE Influenza Type A (PCR) NEGATIVE Influenza Type B (PCR) NEGATIVE RSV RNA Qual (PCR) NEGATIVE Medications Medications Current Medications Generic Name Dose Route Start Last Admin Trade Name Freq PRN Reason Stop Dose Admin Acetaminophen 650 mg 10/26/20 11:20 10/28/20 13:53 Acetaminophen 325 Mg Tablet PO 650 mg Q6H PRN Administration Headache/Pain Mild Scale (1-3) Al Hydroxide/Mg Hydroxide 30 ml 10/26/20 11:20 Magnesium Hydrox/Alum Hydrox 30 Ml Oral.Susp PO Q6H PRN Heartburn/Nausea Amlodipine Besylate 5 mg 10/27/20 09:00 10/30/20 09:15 Amlodipine Besylate 5 Mg Tablet PO 5 mg DAILY TARYN Administration Protocol Aspirin 81 mg 10/27/20 09:00 10/30/20 09:15 Aspirin Enteric Coated 81 Mg Tablet.Dr PO 81 mg DAILY TARYN Administration Benztropine Mesylate 1 mg 10/26/20 21:00 10/30/20 09:16 Benztropine Mesylate 1 Mg Tablet PO 1 mg BID@0830,2100 TARYN Administration Clonazepam 1 mg 10/26/20 09:44 10/28/20 18:44 Clonazepam 0.5 Mg Tablet PO 1 mg DAILY PRN Administration Anxiety Clonazepam 1 mg 10/26/20 21:00 10/30/20 09:15 Clonazepam 1 Mg Tablet PO 1 mg BID TARYN Administration Clotrimazole 1 appl 10/27/20 21:00 10/29/20 20:13 Clotrimazole 1 % Vaginal Cream 45 Gm Tube VAGINAL 11/02/20 21:01 1 appl BEDTIME TARYN Administration Cyclobenzaprine HCl 5 mg 10/26/20 11:28 Cyclobenzaprine Hcl 5 Mg Tablet PO TID PRN for muscle spasm Fluticasone Propionate 1 puff 10/26/20 20:00 10/30/20 09:31 Fluticasone Propionate 100 Mcg Blst.W.Dev INHALE 1 puff RBID TARYN Administration Gabapentin 300 mg 10/26/20 21:00 10/30/20 09:15 Gabapentin 300 Mg Capsule PO 300 mg BID TARYN Administration Hydroxyzine HCl 25 mg 10/26/20 11:20 Hydroxyzine Hcl 25 Mg Tablet PO BEDTIME PRN Anxiety Insulin Glargine 10 unit 10/30/20 09:00 10/30/20 09:17 Insulin Glargine,Hum.Rec.Anlog 100 Unit/Ml 10 Ml Vial SUBCUT 10 unit DAILY TARYN Administration Insulin Human Lispro 0 unit 10/26/20 16:30 10/30/20 12:13 Insulin Lispro 100 Unit/Ml 3 Ml Vial SUBCUT 10 unit QIDACHS [facility] Administration Protocol Insulin Human Lispro 2 unit 10/27/20 16:30 10/30/20 12:13 Insulin Lispro 100 Unit/Ml 3 Ml Vial SUBCUT 2 unit QIDAS [facility] Administration Lisinopril 20 mg 10/27/20 09:00 10/30/20 09:15 Lisinopril 20 Mg Tablet PO 20 mg DAILY [facility] Administration Protocol Loperamide HCl 2 mg 10/26/20 09:44 10/28/20 19:45 Loperamide Hcl 2 Mg Capsule PO 2 mg Q6H PRN Administration for diarrhea Magnesium Hydroxide 30 ml 10/26/20 11:20 Milk Of Magnesia 30 Ml Oral.Susp PO DAILY PRN Constipation Meclizine HCl 25 mg 10/26/20 09:44 Meclizine Hcl 25 Mg Tablet PO DAILY PRN dizziness Metformin HCl 1,000 mg 10/26/20 17:00 10/30/20 09:15 Metformin Hcl 1,000 Mg Tablet PO 1,000 mg BIDWM TARYN Administration Non-Formulary Medication 7.5 mg 10/27/20 09:00 Darifenacin PO DAILY [facility] Non-Formulary Medication 1 inhalation 10/27/20 09:00 Fluticasone Furoate [Arnuity Ellipta] PO DAILY [facility] Non-Formulary Medication 10 mg 10/26/20 21:00 Loxapine Succinate PO BID [facility] Non-Formulary Medication 1 each 10/30/20 21:00 Patient Own Medication PO BEDTIME [facility] Propranolol HCl 20 mg 10/26/20 15:00 10/30/20 15:13 Propranolol Hcl 20 Mg Tablet PO 20 mg TID [facility] Administration Protocol Allergies Allergies Allergy/AdvReac Type Severity Reaction Status Date / Time haloperidol [HALOPERIDOL] Allergy Intermediate SWELLING Verified 07/14/20 22:44 carbamazepine [From Tegretol] Allergy Mild RASH, Verified 07/14/20 22:44 TREMORS lithium [[place]] Allergy Mild RASH, Verified 07/14/20 22:44 CRAWLING OUT OF SKIN olanzapine [From Zyprexa] Allergy Mild RICHARD Verified 07/14/20 22:44 quetiapine [From Seroquel] Allergy Mild SWELLING Verified 07/14/20 22:44 WHOLE BODY, RICHARD topiramate [From TOPAMAX] Allergy Unknown RICHARD, SI Verified 07/14/20 22:44 trazodone [TRAZODONE] Allergy Unknown SYNCOPE Verified 07/14/20 22:44 aripiprazole [From ABILIFY] AdvReac Severe EXTREME SI Verified 07/14/20 22:44 lamotrigine [From Lamictal] AdvReac Mild RICHARD Verified 07/14/20 22:44 modafinil [From Provigil] AdvReac Mild RICHARD Verified 07/14/20 22:44 ALL ANTI DEPRESSENTS Allergy Unknown I GO Uncoded 06/06/20 14:55 MANIC All anti-depressants Allergy Unknown manic, rash Uncoded 05/02/20 00:00 From GEODON Allergy Unknown LETHARGY Uncoded 06/06/20 14:55 From WELLBUTRIN AdvReac Unknown AGITATION, Uncoded 06/06/20 14:55 MAVIS Assessment & Plan Assessment & Plan (1) GERD (gastroesophageal reflux disease): Status: Acute Code(s): K21.9 - Gastro-esophageal reflux disease without esophagitis (2) Diabetic nephropathy: Status: Acute Code(s): E11.21 - Type 2 diabetes mellitus with diabetic nephropathy (3) Type 2 diabetes mellitus with hyperglycemia: Qualifiers: Diabetes mellitus snf insulin use: without adjunct faculty for medical terminology use Qualified Code(s): E11.65 - Type 2 diabetes mellitus with hyperglycemia Status: Acute Code(s): E11.65 - Type 2 diabetes mellitus with hyperglycemia (4) Obesity (BMI 30-39.9): Status: Acute Code(s): E66.9 - Obesity, unspecified (5) Hypercholesterolemia: Status: Acute Code(s): E78.00 - Pure hypercholesterolemia, unspecified (6) Hypertension: Status: Acute Code(s): I10 - Essential (primary) hypertension (7) PTSD (post-traumatic stress disorder): Status: Acute Code(s): F43.10 - Post-traumatic stress disorder, unspecified (8) Kaia infection of genital region: Status: Acute Code(s): B37.49 - Other urogenital candidiasis (9) Schizoaffective disorder, bipolar type: Status: Acute Code(s): F25.0 - Schizoaffective disorder, bipolar type Assessment and Plan: Pt has hx of schizoaffective d/o, MRI does show microvascular changes/overall atrophy consistent with memory/cognitive impairements. 1. Continue Loxepine 2. Obtain collateral information Greater than 50% of the session was spent on counseling and/or coordination of care Reason for contiued inpatient stay Substantial Risk for: harm to self
[2020-10-30 16:35] VITALS: BP 135/78; PULSE 72; TEMP 36.3
[2020-10-30 17:44] LABS: Glucose, Whole Blood 155 mg/dL (60-115)
[2020-10-30] MEDS: Clotrimazole 1 % Vaginal Cream 45 GM TUBE 1 APPL VAGINAL (20:46)
[2020-10-30 20:47] LABS: Glucose, Whole Blood 110 mg/dL (60-115)
[2020-10-30 20:52] VITALS: BP 145/78; PULSE 63
[2020-10-31 05:03] LABS: Glucose, Whole Blood 169 mg/dL (60-115)
[2020-10-31 05:50] VITALS: BP 148/70; PULSE 68; TEMP 36.1; O2SAT 96
[2020-10-31 07:00] VITALS: BMI 34.9
[2020-10-31 08:32] VITALS: BP 148/70; PULSE 68
[2020-10-31] MEDS: Propranolol HCL 20 MG TABLET PO ×3 (08:33→21:28)
[2020-10-31] MEDS: Gabapentin 300 MG CAPSULE PO ×2 (08:33→21:28)
[2020-10-31] MEDS: clonazePAM 1 MG TABLET PO (08:33)
[2020-10-31] MEDS: metFORMIN HCl 1,000 MG TABLET 1000 MG PO ×2 (08:33→17:19)
[2020-10-31] MEDS: Aspirin Enteric Coated 81 MG TABLET.DR PO (08:33)
[2020-10-31] MEDS: Benztropine Mesylate 1 MG TABLET PO ×2 (08:33→21:28)
[2020-10-31] MEDS: amLODIPine Besylate 5 MG TABLET PO (08:33)
[2020-10-31] MEDS: Fluticasone Propionate 100 MCG BLST.W.DEV 1 PUFF INHALE ×2 (08:35→21:29)
[2020-10-31] MEDS: Insulin Glargine,Hum.rec.anlog 100 UNIT/ML 10 ML VIAL 10 UNIT SUBCUT (08:37)
[2020-10-31] MEDS: Insulin Lispro 100 UNIT/ML 3 ML VIAL SUBCUT ×7 (08:38→21:31)
[2020-10-31 12:09] LABS: Glucose, Whole Blood 246 mg/dL (60-115)
[2020-10-31] MEDS: clonazePAM 0.5 MG TABLET 1 MG PO (13:24)
[2020-10-31 14:45] VITALS: BP 137/68; PULSE 84
--- NOTE | 2020-10-31 15:34 | P.PNPSI_ITS ---
Subjective Subjective Date of Service: 10/31/20 Reason For Visit: Bipolar depression Suicidal ideation Interim History: Pt continues to present with bright affect. She reports mood is good. She reports she continues to hear voices, but this is her baseline even when taking medications. She denies CAH, SI/HI. She has been visible in the unit, attends groups, social with peers. No behavioral concerns. Review of Systems Review of Systems Yes all other systems are reviewed and are negative Mental Status Exam Mental Status Exam Narrative: TP: derailment at times TC: hearing voices, no suicidal at the moment. Mood: good Affect: constricted but congruent AH/VH: positive SI: denies HI: denies Delusions: none Insight/judgment: poor x 3. Memory/cog: alert, fluctuating levels of orientation. She is oriented to situation, place, not year or month. Patient Appearance: Disheveled Patient Orientation: Person, Place ([facility] ), Time (states October 162020 ) and Situation (intermittent awarenss of situation ) Level of Consciousness: Awake and Alert Patient Behavior: Appropriate, Talkative and Cooperative Behavior Comments: befuddled at times Mood Description: Anxious Affect Description: Anxious Patient Cognition Impaired: Yes Ability to Follow Directions: Good (Simple instructions) Speech Pattern: Clear, Spontaneous Speech and Long Pauses Memory Description: Episodic Impaired Diagnostics Vital Signs (24Hr): Vital Signs - 24 hr 10/30/20 16:35 10/30/20 20:52 10/31/20 05:50 Temperature 97.3 F 97 F Pulse Rate 72 63 68 Blood Pressure 135/78 145/78 H 148/70 H Pulse Oximetry 96 10/31/20 08:32 10/31/20 14:45 Temperature Pulse Rate 68 84 Blood Pressure 148/70 H 137/68 Pulse Oximetry Body Mass Index 34.9 Labs Results: 10/27/20 10:29 10/27/20 10:30 Labs: Laboratory Results - last 48 hr 10/29/20 10/29/20 10/30/20 16:56 20:19 06:21 POC Glucose 138 H 243 H 173 H Coronavirus (PCR) Influenza Type A (PCR) Influenza Type B (PCR) RSV RNA Qual (PCR) 10/30/20 10/30/20 10/30/20 11:49 14:51 16:48 POC Glucose 388 H* 155 H Coronavirus (PCR) NEGATIVE Influenza Type A (PCR) NEGATIVE Influenza Type B (PCR) NEGATIVE RSV RNA Qual (PCR) NEGATIVE 10/30/20 10/31/20 10/31/20 20:38 05:00 11:48 POC Glucose 110 169 H 246 H Coronavirus (PCR) Influenza Type A (PCR) Influenza Type B (PCR) RSV RNA Qual (PCR) Medications Medications Current Medications Generic Name Dose Route Start Last Admin Trade Name Freq PRN Reason Stop Dose Admin Acetaminophen 650 mg 10/26/20 11:20 10/28/20 13:53 Acetaminophen 325 Mg Tablet PO 650 mg Q6H PRN Administration Headache/Pain Mild Scale (1-3) Al Hydroxide/Mg Hydroxide 30 ml 10/26/20 11:20 Magnesium Hydrox/Alum Hydrox 30 Ml Oral.Susp PO Q6H PRN Heartburn/Nausea Amlodipine Besylate 5 mg 10/27/20 09:00 10/31/20 08:33 Amlodipine Besylate 5 Mg Tablet PO 5 mg DAILY TARYN Administration Protocol Aspirin 81 mg 10/27/20 09:00 10/31/20 08:33 Aspirin Enteric Coated 81 Mg Tablet. PO 81 mg DAILY TARYN Administration Benztropine Mesylate 1 mg 10/26/20 21:00 10/31/20 08:33 Benztropine Mesylate 1 Mg Tablet PO 1 mg BID@0830,2100 TARYN Administration Clonazepam 1 mg 10/26/20 21:00 10/31/20 08:33 Clonazepam 1 Mg Tablet PO 1 mg BID TARYN Administration Clonazepam 1 mg 10/31/20 09:50 10/31/20 13:24 Clonazepam 0.5 Mg Tablet PO 1 mg DAILY PRN Administration Anxiety Clotrimazole 1 appl 10/27/20 21:00 10/30/20 20:46 Clotrimazole 1 % Vaginal Cream 45 Gm Tube VAGINAL 11/02/20 21:01 1 appl BEDTIME TARYN Administration Cyclobenzaprine HCl 5 mg 10/26/20 11:28 Cyclobenzaprine Hcl 5 Mg Tablet PO TID PRN for muscle spasm Fluticasone Propionate 1 puff 10/26/20 20:00 10/31/20 08:35 Fluticasone Propionate 100 Mcg Blst.W.Dev INHALE 1 puff RBID TARYN Administration Gabapentin 300 mg 10/26/20 21:00 10/31/20 08:33 Gabapentin 300 Mg Capsule PO 300 mg BID TARYN Administration Hydroxyzine HCl 25 mg 10/26/20 11:20 Hydroxyzine Hcl 25 Mg Tablet PO BEDTIME PRN Anxiety Insulin Glargine 10 unit 10/30/20 09:00 10/31/20 08:37 Insulin Glargine,Hum.Rec.Anlog 100 Unit/Ml 10 Ml Vial SUBCUT 10 unit DAILY [facility] Administration Insulin Human Lispro 0 unit 10/26/20 16:30 10/31/20 11:55 Insulin Lispro 100 Unit/Ml 3 Ml Vial SUBCUT 4 unit QIDAS [facility] Administration Protocol Insulin Human Lispro 2 unit 10/27/20 16:30 10/31/20 11:54 Insulin Lispro 100 Unit/Ml 3 Ml Vial SUBCUT 2 unit QIDAS [facility] Administration Lisinopril 20 mg 10/27/20 09:00 10/31/20 08:32 Lisinopril 20 Mg Tablet PO 20 mg DAILY [facility] Administration Protocol Loperamide HCl 2 mg 10/26/20 09:44 10/28/20 19:45 Loperamide Hcl 2 Mg Capsule PO 2 mg Q6H PRN Administration for diarrhea Magnesium Hydroxide 30 ml 10/26/20 11:20 Milk Of Magnesia 30 Ml Oral.Susp PO DAILY PRN Constipation Meclizine HCl 25 mg 10/26/20 09:44 Meclizine Hcl 25 Mg Tablet PO DAILY PRN dizziness Metformin HCl 1,000 mg 10/26/20 17:00 10/31/20 08:33 Metformin Hcl 1,000 Mg Tablet PO 1,000 mg BIDWM [facility] Administration Non-Formulary Medication 7.5 mg 10/27/20 09:00 Darifenacin PO DAILY [facility] Non-Formulary Medication 1 inhalation 10/27/20 09:00 Fluticasone Furoate [Arnuity Ellipta] PO DAILY [facility] Non-Formulary Medication 10 mg 10/26/20 21:00 Loxapine Succinate PO BID [facility] Non-Formulary Medication 1 each 10/30/20 21:00 Patient Own Medication PO BEDTIME [facility] Propranolol HCl 20 mg 10/26/20 15:00 10/31/20 14:45 Propranolol Hcl 20 Mg Tablet PO 20 mg TID [facility] Administration Protocol Allergies Allergies Allergy/AdvReac Type Severity Reaction Status Date / Time haloperidol [HALOPERIDOL] Allergy Intermediate SWELLING Verified 07/14/20 22:44 carbamazepine [From Tegretol] Allergy Mild RASH, Verified 07/14/20 22:44 TREMORS lithium [[place]] Allergy Mild RASH, Verified 07/14/20 22:44 CRAWLING OUT OF SKIN olanzapine [From Zyprexa] Allergy Mild RICHARD Verified 07/14/20 22:44 quetiapine [From Seroquel] Allergy Mild SWELLING Verified 07/14/20 22:44 WHOLE BODY, RICHARD topiramate [From TOPAMAX] Allergy Unknown RICHARD, SI Verified 07/14/20 22:44 trazodone [TRAZODONE] Allergy Unknown SYNCOPE Verified 07/14/20 22:44 aripiprazole [From ABILIFY] AdvReac Severe EXTREME SI Verified 07/14/20 22:44 lamotrigine [From Lamictal] AdvReac Mild RICHARD Verified 07/14/20 22:44 modafinil [From Provigil] AdvReac Mild RICHARD Verified 07/14/20 22:44 ALL ANTI DEPRESSENTS Allergy Unknown I GO Uncoded 06/06/20 14:55 MANIC All anti-depressants Allergy Unknown manic, rash Uncoded 05/02/20 00:00 From GEODON Allergy Unknown LETHARGY Uncoded 06/06/20 14:55 From WELLBUTRIN AdvReac Unknown AGITATION, Uncoded 06/06/20 14:55 MAVIS Assessment & Plan Assessment & Plan (1) GERD (gastroesophageal reflux disease): Status: Acute Code(s): K21.9 - Gastro-esophageal reflux disease without esophagitis (2) Diabetic nephropathy: Status: Acute Code(s): E11.21 - Type 2 diabetes mellitus with diabetic nephropathy (3) Type 2 diabetes mellitus with hyperglycemia: Qualifiers: Diabetes mellitus mcfp insulin use: without mcfp use Qualified Code(s): E11.65 - Type 2 diabetes mellitus with hyperglycemia Status: Acute Code(s): E11.65 - Type 2 diabetes mellitus with hyperglycemia (4) Obesity (BMI 30-39.9): Status: Acute Code(s): E66.9 - Obesity, unspecified (5) Hypercholesterolemia: Status: Acute Code(s): E78.00 - Pure hypercholesterolemia, unspecified (6) Hypertension: Status: Acute Code(s): I10 - Essential (primary) hypertension (7) PTSD (post-traumatic stress disorder): Status: Acute Code(s): F43.10 - Post-traumatic stress disorder, unspecified (8) Kaia infection of genital region: Status: Acute Code(s): B37.49 - Other urogenital candidiasis (9) Schizoaffective disorder, bipolar type: Status: Acute Code(s): F25.0 - Schizoaffective disorder, bipolar type Assessment and Plan: Pt has hx of schizoaffective d/o, MRI does show microvascular changes/overall atrophy consistent with memory/cognitive impairements. 1. Continue Loxepine 2. Obtain collateral information Greater than 50% of the session was spent on counseling and/or coordination of care Reason for contiued inpatient stay Substantial Risk for: harm to self
[2020-10-31 17:11] LABS: Glucose, Whole Blood 140 mg/dL (60-115)
[2020-10-31 18:00] VITALS: BP 125/80; PULSE 82; TEMP 36.2
[2020-10-31 21:20] LABS: Glucose, Whole Blood 155 mg/dL (60-115)
[2020-10-31 21:28] VITALS: BP 125/80; PULSE 92
[2020-10-31] MEDS: Clotrimazole 1 % Vaginal Cream 45 GM TUBE 1 APPL VAGINAL (21:30)
[2020-11-01] MEDS: hydrOXYzine HCL 25 MG TABLET PO (00:15)
[2020-11-01] MEDS: clonazePAM 0.5 MG TABLET 1 MG PO (00:16)
[2020-11-01 05:45] VITALS: BP 132/77; PULSE 73; RESP 18; TEMP 36.4; O2SAT 96
[2020-11-01 05:51] LABS: Glucose, Whole Blood 143 mg/dL (60-115)
[2020-11-01] MEDS: Insulin Glargine,Hum.rec.anlog 100 UNIT/ML 10 ML VIAL 10 UNIT SUBCUT (08:37)
[2020-11-01 08:39] VITALS: BP 132/77; PULSE 73
[2020-11-01] MEDS: Propranolol HCL 20 MG TABLET PO ×2 (08:39→13:37)
[2020-11-01] MEDS: Gabapentin 300 MG CAPSULE PO (08:39)
[2020-11-01] MEDS: metFORMIN HCl 1,000 MG TABLET 1000 MG PO (08:39)
[2020-11-01] MEDS: Benztropine Mesylate 1 MG TABLET PO (08:39)
[2020-11-01] MEDS: Fluticasone Propionate 100 MCG BLST.W.DEV 1 PUFF INHALE (08:39)
[2020-11-01 08:40] VITALS: BP 132/77; PULSE 73
[2020-11-01] MEDS: amLODIPine Besylate 5 MG TABLET PO (08:40)
[2020-11-01] MEDS: Aspirin Enteric Coated 81 MG TABLET.DR PO (08:40)
[2020-11-01] MEDS: Insulin Lispro 100 UNIT/ML 3 ML VIAL SUBCUT ×3 (08:42→13:10)
--- NOTE | 2020-11-01 09:31 | PM.PSYDC ---
DS: Providers Provider Date of Service: 11/01/20 Date of admission: 10/26/20 11:20 Date of discharge: 11/01/20 Primary care physician: Kira Craven MD Consults: 10/27/20 15:29 Consult to Hospitalist Routine Consulting Provider: Hospitalist Attending physician on discharge: Lalitha Alexander DS: Diagnosis Discharge Diagnosis (1) GERD (gastroesophageal reflux disease): Status: Acute (2) Diabetic nephropathy: Status: Acute (3) Type 2 diabetes mellitus with hyperglycemia: Status: Acute (4) Obesity (BMI 30-39.9): Status: Acute (5) Hypercholesterolemia: Status: Acute (6) Hypertension: Status: Acute (7) PTSD (post-traumatic stress disorder): Status: Acute (8) Kaia infection of genital region: Status: Acute (9) Schizoaffective disorder, bipolar type: Status: Acute DS: Medications Discharge Medications Home Medications: Home Medications Medication Instructions Recorded Confirmed clonazepam 0.5 mg tablet 1 mg PO DAILY PRN tab 07/08/20 10/25/20 amlodipine 5 mg PO DAILY 07/14/20 10/25/20 loxapine succinate 10 mg PO BID 07/14/20 10/25/20 propranolol 20 mg PO TID 07/14/20 10/25/20 benztropine 1 mg PO BID@0830,2100 10/25/20 10/25/20 clonazepam 1 mg PO BID 10/25/20 10/25/20 loxapine succinate 5 mg PO BEDTIME 10/25/20 10/25/20 Previous Rx's Medication Instructions Recorded meloxicam 15 mg tablet 15 mg PO DAILY #30 tab 08/21/20 aspirin 81 mg tablet,delayed 81 mg PO DAILY #30 tab 08/22/20 release fluticasone furoate 100 1 inh PO DAILY #30 ea 09/03/20 mcg/actuation blister powder for inhalation lancets 28 gauge 28 gauge MISCELLANEOUS DIRECTED 09/09/20 #100 ea metformin 1,000 mg tablet 1,000 mg PO BID #180 tab 09/09/20 fluticasone propionate 110 1 puff PO BID #12 g 09/23/20 mcg/actuation HFA aerosol inhaler cyclobenzaprine 5 mg tablet 5 mg PO TID PRN #80 tab 10/08/20 lisinopril 20 mg tablet 20 mg PO DAILY #30 tab 10/08/20 darifenacin 7.5 mg tablet,extended 7.5 mg PO DAILY #30 tab 10/14/20 release 24 hr gabapentin 300 mg capsule 300 mg PO BID #60 cap 10/14/20 blood sugar diagnostic 1 strip MISCELLANEOUS DAILY #100 10/20/20 strip insulin lispro [Humalog U-100 2 unit SUBCUT QIDACHS 15 Days ml 11/01/20 Insulin] Discharge Plan Discharge Patient Disposition: Home, Self-Care Referrals: [facility] [Other] (fax- [phone] Resume at Discharge- RN will be reaching out this afternoon. ) Meera Pompa (therapist) [Other] - 11/05/20 1:00 pm (Telehealth appointment) Dr. De Jesus (psychiatrist) [Other] - 12/06/20 12:00 pm (Telehealth appointment) Po,Kira Campos MD [Primary Care Provider] - 11/14/20 10:15 am (IN HOUSE) Discharge Medications: New insulin lispro [Humalog U-100 Insulin] 100 unit/mL Solution 2 unit subcut QIDACHS 15 Days RF: 0 Continued meloxicam 15 mg tablet 15 mg PO DAILY Qty: 30 RF: 2 aspirin 81 mg tablet,delayed release (DR/EC) 81 mg PO DAILY Qty: 30 RF: 4 fluticasone furoate [Arnuity Ellipta] 100 mcg/actuation blister with device 1 inh PO DAILY Qty: 30 RF: 11 metformin 1,000 mg tablet 1,000 mg PO BID Qty: 180 RF: 1 lancets [FreeStyle Lancets] 28 gauge misc 28 gauge miscellaneous DIRECTED Qty: 100 RF: 3 fluticasone propionate [Flovent HFA] 110 mcg/actuation HFA aerosol inhaler 1 puff PO BID Qty: 12 RF: 5 lisinopril 20 mg tablet 20 mg PO DAILY Qty: 30 RF: 5 cyclobenzaprine 5 mg tablet 5 mg PO TID PRN (Reason: for muscle spasm) Qty: 80 RF: 4 gabapentin 300 mg capsule 300 mg PO BID Qty: 60 RF: 5 darifenacin 7.5 mg tablet extended release 24 hr 7.5 mg PO DAILY Qty: 30 RF: 5 blood sugar diagnostic [FreeStyle Lite Strips] Strip 1 strip miscellaneous DAILY Qty: 100 RF: 3 loxapine succinate 5 mg Capsule 5 mg PO BEDTIME RF: 0 clonazepam 1 mg tablet 1 mg PO BID RF: 0 benztropine 1 mg tablet 1 mg PO BID@0830,2100 RF: 0 amlodipine 5 mg Tablet 5 mg PO DAILY RF: 0 loxapine succinate 10 mg Capsule 10 mg PO BID RF: 0 propranolol 20 mg Tablet 20 mg PO TID RF: 0 clonazepam 0.5 mg tablet 1 mg PO DAILY PRN (Reason: Anxiety) RF: 0 Discontinued meclizine 25 mg tablet 25 mg PO DAILY PRN (Reason: dizziness) 30 Days Qty: 30 RF: 4 loperamide 2 mg capsule 2 mg PO Q6H PRN (Reason: for diarrhea) Qty: 20 RF: 2 Discharge Orders: Discharge Order (Routine); Ordered 11/01/20 Ordered By: Lalitha Alexander Diet: regular diet Activity on Discharge: As tolerated Stand Alone Forms: Patient Portal Discharge page, Community Support Visit Report Forms: Patient Portal Discharge page Care Plan Goals: 1. Follow up with referrals 2. Take medications as prescribed Health Concerns: 1. Follow up with PCP Plan of Treatment: 1. Follow up with referrals 2. Take medications as prescribed. Mental Status Exam Mental Status Exam Narrative: TP: derailment at times TC: hearing voices, no suicidal at the moment. Mood: good Affect: constricted but congruent AH/VH: positive SI: denies HI: denies Delusions: none Insight/judgment: poor x 3. Memory/cog: alert, fluctuating levels of orientation. She is oriented to situation, place, not year or month. Level of Consciousness: Awake and Alert Patient Behavior: Appropriate, Talkative and Cooperative Behavior Comments: befuddled at times Mood Description: Appropriate Affect Description: Appropriate Patient Cognition Impaired: Yes Ability to Follow Directions: Good (Simple instructions) Speech Pattern: Clear, Spontaneous Speech and Long Pauses Data Data Completed and Pending Completed studies during hospitalization [Text1]: 10/25/20 10/25/20 10/25/20 21:02 21:25 21:25 WBC 6.7 RBC 4.21 Hgb 12.2 Hct 35.9 L MCV 85.3 MCH 29.0 MCHC 34.0 RDW 13.4 Plt Count 142 L MPV 11.5 Immature Gran % (Auto) 0.1 Neut % (Auto) 48.6 Lymph % (Auto) 39.4 [place] % (Auto) 7.3 Eos % (Auto) 3.6 Baso % (Auto) 1.0 Lymph # (Auto) 2.6 [place] # (Auto) 0.5 Eos # (Auto) 0.2 Baso # (Auto) 0.1 Abs Immat Gran (auto) 0.01 Absolute Neuts (auto) 3.3 Absolute Nucleated RBC 0.000 Nucleated RBC % (auto) 0.0 VBG pH VBG pCO2 VBG pO2 VBG HCO3 VBG O2 Saturation VBG Base Excess Sodium 131 L Potassium 5.2 H Chloride 97 Carbon Dioxide 25 Anion Gap 14 BUN 26 H D Creatinine 1.17 Estim Creat Clear Calc 40.4 Estimated GFR 47 POC Glucose 492 H* Random Glucose 570 H* Fasting Glucose Estimat Average Glucose Hemoglobin A1c % Calcium 9.5 Total Bilirubin AST ALT Alkaline Phosphatase Total Protein Albumin Triglycerides Cholesterol LDL Cholesterol, Calc HDL Cholesterol TSH Free T4 Acetone, Qual Negative Coronavirus (PCR) COVID-19 ([facility]) COVID-19 Clin Com Influenza Type A (PCR) Influenza Type B (PCR) RSV RNA Qual (PCR) 10/25/20 10/25/20 10/26/20 22:45 23:07 00:23 WBC RBC Hgb Hct MCV MCH MCHC RDW Plt Count MPV Immature Gran % (Auto) Neut % (Auto) Lymph % (Auto) [place] % (Auto) Eos % (Auto) Baso % (Auto) Lymph # (Auto) [place] # (Auto) Eos # (Auto) Baso # (Auto) Abs Immat Gran (auto) Absolute Neuts (auto) Absolute Nucleated RBC Nucleated RBC % (auto) VBG pH 7.37 VBG pCO2 42 VBG pO2 115 VBG HCO3 24 VBG O2 Saturation 98.0 VBG Base Excess -0.2 Sodium Potassium Chloride Carbon Dioxide Anion Gap BUN Creatinine Estim Creat Clear Calc Estimated GFR POC Glucose 452 H* 445 H* Random Glucose Fasting Glucose Estimat Average Glucose Hemoglobin A1c % Calcium Total Bilirubin AST ALT Alkaline Phosphatase Total Protein Albumin Triglycerides Cholesterol LDL Cholesterol, Calc HDL Cholesterol TSH Free T4 Acetone, Qual Coronavirus (PCR) COVID-19 ([facility]) COVID-19 Clin Com Influenza Type A (PCR) Influenza Type B (PCR) RSV RNA Qual (PCR) 10/26/20 10/26/20 10/26/20 01:08 02:19 06:37 WBC RBC Hgb Hct MCV MCH MCHC RDW Plt Count MPV Immature Gran % (Auto) Neut % (Auto) Lymph % (Auto) [place] % (Auto) Eos % (Auto) Baso % (Auto) Lymph # (Auto) [place] # (Auto) Eos # (Auto) Baso # (Auto) Abs Immat Gran (auto) Absolute Neuts (auto) Absolute Nucleated RBC Nucleated RBC % (auto) VBG pH VBG pCO2 VBG pO2 VBG HCO3 VBG O2 Saturation VBG Base Excess Sodium Potassium Chloride Carbon Dioxide Anion Gap BUN Creatinine Estim Creat Clear Calc Estimated GFR POC Glucose 337 H 272 H 251 H Random Glucose Fasting Glucose Estimat Average Glucose Hemoglobin A1c % Calcium Total Bilirubin AST ALT Alkaline Phosphatase Total Protein Albumin Triglycerides Cholesterol LDL Cholesterol, Calc HDL Cholesterol TSH Free T4 Acetone, Qual Coronavirus (PCR) COVID-19 ([facility]) COVID-19 Clin Com Influenza Type A (PCR) Influenza Type B (PCR) RSV RNA Qual (PCR) 10/26/20 10/26/20 10/26/20 08:22 09:54 10:23 WBC RBC Hgb Hct MCV MCH MCHC RDW Plt Count MPV Immature Gran % (Auto) Neut % (Auto) Lymph % (Auto) [place] % (Auto) Eos % (Auto) Baso % (Auto) Lymph # (Auto) [place] # (Auto) Eos # (Auto) Baso # (Auto) Abs Immat Gran (auto) Absolute Neuts (auto) Absolute Nucleated RBC Nucleated RBC % (auto) VBG pH VBG pCO2 VBG pO2 VBG HCO3 VBG O2 Saturation VBG Base Excess Sodium 135 Potassium 4.5 Chloride 102 Carbon Dioxide 22 Anion Gap 16 BUN 19 H Creatinine 0.94 Estim Creat Clear Calc 50.3 Estimated GFR > 60 POC Glucose 385 H* Random Glucose 398 H* Fasting Glucose Estimat Average Glucose Hemoglobin A1c % Calcium 8.9 D Total Bilirubin 0.8 AST 78 H ALT 87 H Alkaline Phosphatase 165 H D Total Protein 8.0 Albumin 4.1 Triglycerides Cholesterol LDL Cholesterol, Calc HDL Cholesterol TSH Free T4 Acetone, Qual Coronavirus (PCR) COVID-19 ([facility]) Negative COVID-19 Clin Com See Note Influenza Type A (PCR) Influenza Type B (PCR) RSV RNA Qual (PCR) 10/26/20 10/26/20 10/26/20 12:57 16:22 20:08 WBC RBC Hgb Hct MCV MCH MCHC RDW Plt Count MPV Immature Gran % (Auto) Neut % (Auto) Lymph % (Auto) [place] % (Auto) Eos % (Auto) Baso % (Auto) Lymph # (Auto) [place] # (Auto) Eos # (Auto) Baso # (Auto) Abs Immat Gran (auto) Absolute Neuts (auto) Absolute Nucleated RBC Nucleated RBC % (auto) VBG pH VBG pCO2 VBG pO2 VBG HCO3 VBG O2 Saturation VBG Base Excess Sodium Potassium Chloride Carbon Dioxide Anion Gap BUN Creatinine Estim Creat Clear Calc Estimated GFR POC Glucose 347 H 370 H* 365 H* Random Glucose Fasting Glucose Estimat Average Glucose Hemoglobin A1c % Calcium Total Bilirubin AST ALT Alkaline Phosphatase Total Protein Albumin Triglycerides Cholesterol LDL Cholesterol, Calc HDL Cholesterol TSH Free T4 Acetone, Qual Coronavirus (PCR) COVID-19 ([facility]) COVID-19 Clin Com Influenza Type A (PCR) Influenza Type B (PCR) RSV RNA Qual (PCR) 10/27/20 10/27/20 10/27/20 06:47 10:29 10:29 WBC 8.1 RBC 4.53 Hgb 12.8 Hct 39.0 MCV 86.1 MCH 28.3 MCHC 32.8 RDW 13.8 Plt Count 183 D MPV 11.2 Immature Gran % (Auto) 0.4 Neut % (Auto) 50.6 Lymph % (Auto) 38.2 [place] % (Auto) 6.6 Eos % (Auto) 2.8 Baso % (Auto) 1.4 Lymph # (Auto) 3.1 [place] # (Auto) 0.5 Eos # (Auto) 0.2 Baso # (Auto) 0.1 Abs Immat Gran (auto) 0.03 Absolute Neuts (auto) 4.1 Absolute Nucleated RBC 0.000 Nucleated RBC % (auto) 0.0 VBG pH VBG pCO2 VBG pO2 VBG HCO3 VBG O2 Saturation VBG Base Excess Sodium Potassium Chloride Carbon Dioxide Anion Gap BUN Creatinine Estim Creat Clear Calc Estimated GFR POC Glucose 266 H Random Glucose Fasting Glucose Estimat Average Glucose 289 Hemoglobin A1c % 11.7 Calcium Total Bilirubin AST ALT Alkaline Phosphatase Total Protein Albumin Triglycerides Cholesterol LDL Cholesterol, Calc HDL Cholesterol TSH Free T4 Acetone, Qual Coronavirus (PCR) COVID-19 ([facility]) COVID-19 Clin Com Influenza Type A (PCR) Influenza Type B (PCR) RSV RNA Qual (PCR) 10/27/20 10/27/20 10/27/20 10:30 12:27 15:11 WBC RBC Hgb Hct MCV MCH MCHC RDW Plt Count MPV Immature Gran % (Auto) Neut % (Auto) Lymph % (Auto) [place] % (Auto) Eos % (Auto) Baso % (Auto) Lymph # (Auto) [place] # (Auto) Eos # (Auto) Baso # (Auto) Abs Immat Gran (auto) Absolute Neuts (auto) Absolute Nucleated RBC Nucleated RBC % (auto) VBG pH VBG pCO2 VBG pO2 VBG HCO3 VBG O2 Saturation VBG Base Excess Sodium 135 Potassium 4.8 Chloride 101 Carbon Dioxide 23 Anion Gap 16 BUN 20 H Creatinine 1.05 Estim Creat Clear Calc 45.1 Estimated GFR 53 POC Glucose 363 H* 316 H Random Glucose Fasting Glucose 434 H* D Estimat Average Glucose Hemoglobin A1c % Calcium 9.1 Total Bilirubin 0.8 AST 108 H ALT 110 H Alkaline Phosphatase 151 H Total Protein 7.8 Albumin 4.0 Triglycerides 205 Cholesterol 152 LDL Cholesterol, Calc 77 HDL Cholesterol 34 TSH 1.15 Free T4 1.22 Acetone, Qual Coronavirus (PCR) COVID-19 ([facility]) COVID-19 Clin Com Influenza Type A (PCR) Influenza Type B (PCR) RSV RNA Qual (PCR) 10/27/20 10/27/20 10/28/20 16:45 20:44 06:08 WBC RBC Hgb Hct MCV MCH MCHC RDW Plt Count MPV Immature Gran % (Auto) Neut % (Auto) Lymph % (Auto) [place] % (Auto) Eos % (Auto) Baso % (Auto) Lymph # (Auto) [place] # (Auto) Eos # (Auto) Baso # (Auto) Abs Immat Gran (auto) Absolute Neuts (auto) Absolute Nucleated RBC Nucleated RBC % (auto) VBG pH VBG pCO2 VBG pO2 VBG HCO3 VBG O2 Saturation VBG Base Excess Sodium Potassium Chloride Carbon Dioxide Anion Gap BUN Creatinine Estim Creat Clear Calc Estimated GFR POC Glucose 298 H 285 H 228 H Random Glucose Fasting Glucose Estimat Average Glucose Hemoglobin A1c % Calcium Total Bilirubin AST ALT Alkaline Phosphatase Total Protein Albumin Triglycerides Cholesterol LDL Cholesterol, Calc HDL Cholesterol TSH Free T4 Acetone, Qual Coronavirus (PCR) COVID-19 ([facility]) COVID-19 Clin Com Influenza Type A (PCR) Influenza Type B (PCR) RSV RNA Qual (PCR) 10/28/20 10/28/20 10/28/20 11:56 16:33 21:56 WBC RBC Hgb Hct MCV MCH MCHC RDW Plt Count MPV Immature Gran % (Auto) Neut % (Auto) Lymph % (Auto) [place] % (Auto) Eos % (Auto) Baso % (Auto) Lymph # (Auto) [place] # (Auto) Eos # (Auto) Baso # (Auto) Abs Immat Gran (auto) Absolute Neuts (auto) Absolute Nucleated RBC Nucleated RBC % (auto) VBG pH VBG pCO2 VBG pO2 VBG HCO3 VBG O2 Saturation VBG Base Excess Sodium Potassium Chloride Carbon Dioxide Anion Gap BUN Creatinine Estim Creat Clear Calc Estimated GFR POC Glucose 391 H* 218 H 281 H Random Glucose Fasting Glucose Estimat Average Glucose Hemoglobin A1c % Calcium Total Bilirubin AST ALT Alkaline Phosphatase Total Protein Albumin Triglycerides Cholesterol LDL Cholesterol, Calc HDL Cholesterol TSH Free T4 Acetone, Qual Coronavirus (PCR) COVID-19 ([facility]) COVID-19 Clin Com Influenza Type A (PCR) Influenza Type B (PCR) RSV RNA Qual (PCR) 10/29/20 10/29/20 10/29/20 06:14 11:50 16:56 WBC RBC Hgb Hct MCV MCH MCHC RDW Plt Count MPV Immature Gran % (Auto) Neut % (Auto) Lymph % (Auto) [place] % (Auto) Eos % (Auto) Baso % (Auto) Lymph # (Auto) [place] # (Auto) Eos # (Auto) Baso # (Auto) Abs Immat Gran (auto) Absolute Neuts (auto) Absolute Nucleated RBC Nucleated RBC % (auto) VBG pH VBG pCO2 VBG pO2 VBG HCO3 VBG O2 Saturation VBG Base Excess Sodium Potassium Chloride Carbon Dioxide Anion Gap BUN Creatinine Estim Creat Clear Calc Estimated GFR POC Glucose 175 H 357 H* 138 H Random Glucose Fasting Glucose Estimat Average Glucose Hemoglobin A1c % Calcium Total Bilirubin AST ALT Alkaline Phosphatase Total Protein Albumin Triglycerides Cholesterol LDL Cholesterol, Calc HDL Cholesterol TSH Free T4 Acetone, Qual Coronavirus (PCR) COVID-19 ([facility]) COVID-19 Clin Com Influenza Type A (PCR) Influenza Type B (PCR) RSV RNA Qual (PCR) 10/29/20 10/30/20 10/30/20 20:19 06:21 11:49 WBC RBC Hgb Hct MCV MCH MCHC RDW Plt Count MPV Immature Gran % (Auto) Neut % (Auto) Lymph % (Auto) [place] % (Auto) Eos % (Auto) Baso % (Auto) Lymph # (Auto) [place] # (Auto) Eos # (Auto) Baso # (Auto) Abs Immat Gran (auto) Absolute Neuts (auto) Absolute Nucleated RBC Nucleated RBC % (auto) VBG pH VBG pCO2 VBG pO2 VBG HCO3 VBG O2 Saturation VBG Base Excess Sodium Potassium Chloride Carbon Dioxide Anion Gap BUN Creatinine Estim Creat Clear Calc Estimated GFR POC Glucose 243 H 173 H 388 H* Random Glucose Fasting Glucose Estimat Average Glucose Hemoglobin A1c % Calcium Total Bilirubin AST ALT Alkaline Phosphatase Total Protein Albumin Triglycerides Cholesterol LDL Cholesterol, Calc HDL Cholesterol TSH Free T4 Acetone, Qual Coronavirus (PCR) COVID-19 ([facility]) COVID-19 Clin Com Influenza Type A (PCR) Influenza Type B (PCR) RSV RNA Qual (PCR) 10/30/20 10/30/20 10/30/20 14:51 16:48 20:38 WBC RBC Hgb Hct MCV MCH MCHC RDW Plt Count MPV Immature Gran % (Auto) Neut % (Auto) Lymph % (Auto) [place] % (Auto) Eos % (Auto) Baso % (Auto) Lymph # (Auto) [place] # (Auto) Eos # (Auto) Baso # (Auto) Abs Immat Gran (auto) Absolute Neuts (auto) Absolute Nucleated RBC Nucleated RBC % (auto) VBG pH VBG pCO2 VBG pO2 VBG HCO3 VBG O2 Saturation VBG Base Excess Sodium Potassium Chloride Carbon Dioxide Anion Gap BUN Creatinine Estim Creat Clear Calc Estimated GFR POC Glucose 155 H 110 Random Glucose Fasting Glucose Estimat Average Glucose Hemoglobin A1c % Calcium Total Bilirubin AST ALT Alkaline Phosphatase Total Protein Albumin Triglycerides Cholesterol LDL Cholesterol, Calc HDL Cholesterol TSH Free T4 Acetone, Qual Coronavirus (PCR) NEGATIVE COVID-19 ([facility]) COVID-19 Clin Com Influenza Type A (PCR) NEGATIVE Influenza Type B (PCR) NEGATIVE RSV RNA Qual (PCR) NEGATIVE 10/31/20 10/31/20 10/31/20 05:00 11:48 17:07 WBC RBC Hgb Hct MCV MCH MCHC RDW Plt Count MPV Immature Gran % (Auto) Neut % (Auto) Lymph % (Auto) [place] % (Auto) Eos % (Auto) Baso % (Auto) Lymph # (Auto) [place] # (Auto) Eos # (Auto) Baso # (Auto) Abs Immat Gran (auto) Absolute Neuts (auto) Absolute Nucleated RBC Nucleated RBC % (auto) VBG pH VBG pCO2 VBG pO2 VBG HCO3 VBG O2 Saturation VBG Base Excess Sodium Potassium Chloride Carbon Dioxide Anion Gap BUN Creatinine Estim Creat Clear Calc Estimated GFR POC Glucose 169 H 246 H 140 H Random Glucose Fasting Glucose Estimat Average Glucose Hemoglobin A1c % Calcium Total Bilirubin AST ALT Alkaline Phosphatase Total Protein Albumin Triglycerides Cholesterol LDL Cholesterol, Calc HDL Cholesterol TSH Free T4 Acetone, Qual Coronavirus (PCR) COVID-19 ([facility]) COVID-19 Clin Com Influenza Type A (PCR) Influenza Type B (PCR) RSV RNA Qual (PCR) 10/31/20 11/01/20 21:16 05:47 WBC RBC Hgb Hct MCV MCH MCHC RDW Plt Count MPV Immature Gran % (Auto) Neut % (Auto) Lymph % (Auto) [place] % (Auto) Eos % (Auto) Baso % (Auto) Lymph # (Auto) [place] # (Auto) Eos # (Auto) Baso # (Auto) Abs Immat Gran (auto) Absolute Neuts (auto) Absolute Nucleated RBC Nucleated RBC % (auto) VBG pH VBG pCO2 VBG pO2 VBG HCO3 VBG O2 Saturation VBG Base Excess Sodium Potassium Chloride Carbon Dioxide Anion Gap BUN Creatinine Estim Creat Clear Calc Estimated GFR POC Glucose 155 H 143 H Random Glucose Fasting Glucose Estimat Average Glucose Hemoglobin A1c % Calcium Total Bilirubin AST ALT Alkaline Phosphatase Total Protein Albumin Triglycerides Cholesterol LDL Cholesterol, Calc HDL Cholesterol TSH Free T4 Acetone, Qual Coronavirus (PCR) COVID-19 ([facility]) COVID-19 Clin Com Influenza Type A (PCR) Influenza Type B (PCR) RSV RNA Qual (PCR) DS: Summary Hospital Course Hospital Course: On the unit, Ms. Najera presented as confused, forgetful, poor attention. She reported increased AH and suicidal thoughts. She couldn't provide additional information about timing of symptoms. Collateral information was gathered from her OP psychiatrist, Dr. Lopez, who reported that patient has been more isolative during pandemic and she usually relies heavily on her OP therapist and team. Dr. Lopez also confirms that patient hears voices at baseline but usually not distressed by them. We also discussed that Ms. Najera according to MRI results along with MOCA does present with microvascular changes and overall atrophy consistent with vascular type dementia. Ms. Najera affect quickly brighten. She reports hearing voices but not to the extend of feeling overwhelmed or distressed by them. She denied suicidal or homicidal ideation. She was sleeping and eating well. She was visible in the unit and attended assigned groups. She did not show any signs of aggression towards self or others. She was social with select peers. After discussing risks, benefits and alternative treatment options, Ms. Najera was maintained on same antipsychotic Loxapine, which has been the most effective for her. She does history of multiple medication trials with several side effects. She agreed to continue VNA services and op treatment at [facility]. Status at Discharge Cognitive/behavioral status at discharge: Pt has bright affect. She reports AH but denies HI/SI. She presents with improved hygiene. No signs of aggression towards self or others. Functional status at discharge: independent ambulation Overall status at discharge: patient is back to baseline Time Spent with Patient Time attestation: Total time spent providing and/or coordinating discharge services:
[2020-11-01 11:56] LABS: Glucose, Whole Blood 189 mg/dL (60-115)
[2020-11-01 13:37] VITALS: BP 131/87; PULSE 86
[2020-11-01 13:39] VITALS: BP 131/87; PULSE 86; RESP 18; TEMP 36.6; O2SAT 96
== END 2020-11-01 14:50 | disposition home or self-care (01) | DRG 885 ==
LOC: HO.ED 10-26 11:13 → HO.PM5 10-26 11:27
PROVIDERS: Nurse Practitioner Primary Care; Physician Assistant; Psychiatry & Neurology Psychiatry; Admitting Provider Clinical Nurse Specialist Psychiatric/Mental Health; Emergency Provider Internal Medicine; PCP Internal Medicine; Visit Provider Social Worker
DX: F25.0 Schizoaffective disorder, bipolar type (principal); B37.49 Other urogenital candidiasis; R45.851 Suicidal ideations; K21.9 Gastro-esophageal reflux disease without esophagitis; Z20.822 Contact with and (suspected) exposure to COVID-19; E11.21 Type 2 diabetes mellitus with diabetic nephropathy; E11.65 Type 2 diabetes mellitus with hyperglycemia; E78.00 Pure hypercholesterolemia, unspecified; Z68.35 Body mass index [BMI] 35.0-35.9, adult; Z91.5 Personal history of self-harm; Z79.1 Long term (current) use of non-steroidal anti-inflammatories (NSAID); Z79.4 Long term (current) use of insulin; Z79.51 Long term (current) use of inhaled steroids; Z79.82 Long term (current) use of aspirin; Z79.899 Other long term (current) drug therapy
CPT/HCPCS: 0241U; 36415; 80048; 80053; 80061; 82009; 82803; 82947; 83036; 84439; 84443; 85025; 87635; 93005; 96361; 96374; 99285

== ENCOUNTER 2020-11-15 14:20 | Outpatient (REF) | payer OTHER, SELFPAY ==
[2020-11-15 14:48] LABS: MANUAL DIFF FLAG NO
[2020-11-15 14:50] LABS: Basophils Absolute Auto 0.1 X10*3/uL (0.0-0.2); Basophils Percent Auto 1.2 % (0-2); Eosinophils Absolute Auto 0.3 X10*3/uL (0.0-0.4); Eosinophils Percent Auto 3.5 % (0-4); Hematocrit 38.8 % (37-47); Hemoglobin 12.3 g/dl (12.0-16.0); Imm Gran Abs Auto 0.02 X10*3/uL (0.00-0.03); Imm Gran Pct Auto 0.3 % (0.0-0.4); Lymphocytes Absolute Auto 3.5 X10*3/uL (1.2-4.9); Lymphocytes Percent Auto 46.6 % (20-40); Mean Corpuscular HGB Conc 31.7 g/dl (31.0-35.0); Mean Corpuscular Volume 88.4 fL (80-98); Mean Platelet Volume 10.4 fL (9.4-12.3); Monocytes Absolute Auto 0.5 X10*3/uL (0.1-1.2); Monocytes Percent Auto 6.8 % (2-11); Neutrophils Absolute Auto 3.1 X10*3/uL (2.0-8.3); Neutrophils Percent Auto 41.6 % (45-73); Platelet Count 175 X10*3/uL (160-400); Red Blood Count 4.39 X10*6/uL (4.20-5.50); Red Cell Distribution Width 14.2 % (11.0-16.0); White Blood Count 7.5 X10*3/uL (4.8-10.8)
[2020-11-15 15:13] LABS: Alanine Aminotransferase 62 U/L (0-31); Albumin Level 4.3 g/dL (3.5-5.0); Alkaline Phosphatase 114 U/L (39-117); Anion Gap 15 (12-20); Aspartate Amino Transferase 69 U/L (5-31); Bilirubin Total 0.6 mg/dL (0.0-1.0); Blood Urea Nitrogen 17 mg/dL (9-16); Calcium 9.7 mg/dL (8.4-10.2); Carbon Dioxide 26 mmol/L (22-29); Chloride 104 mmol/L (96-108); Creatinine Urine 86.14 mg/dL; Estimated Glomerular Filt Rate > 60; Glucose Fasting 104 mg/dL (60-99); Microalbum/Creatinine Ratio Ur 142.7 ug/mg cr; Potassium 4.9 mmol/L (3.3-5.1); Sodium 140 mmol/L (135-145)
== END 2020-11-15 14:21 | disposition home or self-care (01) ==
LOC: HO.LAB 14:20
PROVIDERS: PCP Internal Medicine; Visit Provider Nurse Practitioner Family
DX: E11.65 Type 2 diabetes mellitus with hyperglycemia (principal); R19.7 Diarrhea, unspecified
CPT/HCPCS: 36415; 80053; 82043; 85025

== ENCOUNTER → 2020-12-24 10:24 | Outpatient (BNVA) | payer OTHER, SELFPAY | PROVIDERS: PCP Internal Medicine; Visit Provider Dietitian, Registered | DX: E11.65 Type 2 diabetes mellitus with hyperglycemia (principal); E66.9 Obesity, unspecified | CPT/HCPCS: 97803 ==

== ENCOUNTER 2021-01-09 12:38 | Emergency (ER) | payer OTHER, SELFPAY ==
--- NOTE | ~2021-01-09 | US_ITS ---
EXAMINATION: US VENOUS ULTRASOUND WITH DOPPLER LOWER EXTREMITY, BILATERAL CLINICAL INFORMATION: Bilateral lower extremity swelling COMPARISON: None TECHNIQUE: Ultrasound of the deep veins is performed from the hip to the calf with compression sonography and color and pulse Doppler assessment. Spectral analysis with color-flow imaging is performed. FINDINGS: RIGHT: There is normal venous compression and respiratory variation and augmented flow. The visualized common femoral vein, superficial femoral vein, profunda femoral vein, popliteal vein, and the trifurcation region shows no evidence of deep venous thrombosis. There is no significant popliteal fossa cyst. LEFT: There is normal venous compression and respiratory variation and augmented flow. The visualized common femoral vein, superficial femoral vein, profunda femoral vein, popliteal vein, and the trifurcation region shows no evidence of deep venous thrombosis. There is no significant popliteal fossa cyst. If the patient's symptoms persist, followup ultrasound in 5 days 7 days might be of value to exclude proximal propagation from a non-visualized calf vein. US/US venous duplex LE BI IMPRESSION: No DVT demonstrated in either lower extremity.
[2021-01-09 13:04] VITALS: BP 142/79; PULSE 66; RESP 18; TEMP 36.6; O2SAT 96; BMI 35.6
[2021-01-09 13:32] LABS: Glucose Urine UA NEG (NEG); Leukocyte Esterase Urine NEG (NEG); Nitrite Urine NEG (NEG); Urine Blood NEG (NEG); Urine Ketones NEG (NEG); Urine Protein NEG (NEG-TRACE)
[2021-01-09 13:33] LABS: Appearance Urine CLEAR; Color Urine YELLOW
[2021-01-09 16:08] LABS: MANUAL DIFF FLAG NO
[2021-01-09 16:19] LABS: Basophils Absolute Auto 0.1 X10*3/uL (0.0-0.2); Eosinophils Absolute Auto 0.3 X10*3/uL (0.0-0.4); Eosinophils Percent Auto 4.3 % (0-4); Hematocrit 40.3 % (37-47); Hemoglobin 12.8 g/dl (12.0-16.0); Imm Gran Abs Auto 0.02 X10*3/uL (0.00-0.03); Imm Gran Pct Auto 0.3 % (0.0-0.4); Lymphocytes Absolute Auto 2.9 X10*3/uL (1.2-4.9); Lymphocytes Percent Auto 47.3 % (20-40); Mean Corpuscular HGB Conc 31.8 g/dl (31.0-35.0); Mean Corpuscular Hemoglobin 27.5 pg (27.0-33.0); Mean Corpuscular Volume 86.5 fL (80-98); Monocytes Absolute Auto 0.5 X10*3/uL (0.1-1.2); Monocytes Percent Auto 7.9 % (2-11); Neutrophils Absolute Auto 2.4 X10*3/uL (2.0-8.3); Neutrophils Percent Auto 39.2 % (45-73); Platelet Count 154 X10*3/uL (160-400); Red Blood Count 4.66 X10*6/uL (4.20-5.50); Red Cell Distribution Width 15.2 % (11.0-16.0); White Blood Count 6.1 X10*3/uL (4.8-10.8)
[2021-01-09 16:36] LABS: Anion Gap 16 (12-20); Blood Urea Nitrogen 17 mg/dL (9-16); Calcium 9.8 mg/dL (8.4-10.2); Carbon Dioxide 23 mmol/L (22-29); Chloride 106 mmol/L (96-108); Creatinine Clr Calc Pharmacy 77.2; Estimated Glomerular Filt Rate > 60; Glucose Random 96 mg/dL (60-115); Potassium 4.6 mmol/L (3.3-5.1); Sodium 140 mmol/L (135-145)
[2021-01-09 16:55] LABS: B Type Natriuretic Peptide 27 pg/mL (<100)
--- NOTE | 2021-01-09 18:06 | ED.GENADULT ---
HPI - General Adult General Chief complaint: General Medical Stated complaint: BOTH LEGS SWELLING Time Seen by Provider: 01/09/21 18:00 Source: patient Mode of arrival: ambulatory Limitations: no limitations History of Present Illness HPI narrative: 60-year-old female walked into the emergency department for evaluation of bilateral leg swelling and burning sensation pain. 60-year-old female came in for bilateral lower extremity swelling that started about 2 weeks ago, patient describes the symptoms as constant, swelling is worse in the morning time but as day goes on swelling is less. Patient declined any recent travel, or prolonged immobilization. Patient declined chest pain or shortness of breath, patient also declined any problem with laying flat in the supine position. Related Data Home Medications Medication Instructions Recorded Confirmed clonazepam 0.5 mg tablet 1 mg PO DAILY PRN tab 07/08/20 12/17/20 loxapine succinate 10 mg PO BID 07/14/20 12/17/20 propranolol 20 mg PO TID 07/14/20 12/17/20 benztropine 1 mg PO BID@0830,2100 10/25/20 12/17/20 clonazepam 1 mg PO BID 10/25/20 12/17/20 loxapine succinate 5 mg PO BEDTIME 10/25/20 12/17/20 Previous Rx's Medication Instructions Recorded aspirin 81 mg tablet,delayed 81 mg PO DAILY #30 tab 08/22/20 release fluticasone furoate 100 1 inh PO DAILY #30 ea 09/03/20 mcg/actuation blister powder for inhalation lancets 28 gauge 28 gauge MISCELLANEOUS DIRECTED 09/09/20 #100 ea fluticasone propionate 110 1 puff PO BID #12 g 09/23/20 mcg/actuation HFA aerosol inhaler lisinopril 20 mg tablet 20 mg PO DAILY #30 tab 10/08/20 darifenacin 7.5 mg tablet,extended 7.5 mg PO DAILY #30 tab 10/14/20 release 24 hr gabapentin 300 mg capsule 300 mg PO BID #60 cap 10/14/20 insulin lispro [Humalog U-100 2 unit SUBCUT QIDACHS 15 Days ml 11/01/20 Insulin] amlodipine 5 mg tablet 5 mg PO DAILY #90 tab 11/07/20 Pull-ups large #240 ea 11/08/20 meloxicam 15 mg tablet 15 mg PO DAILY #30 tab 11/11/20 blood sugar diagnostic 1 strip MISCELLANEOUS .QD 90 Days 11/18/20 #100 strip metformin 500 mg tablet 500 mg PO BID #60 tab 12/17/20 cyclobenzaprine 5 mg tablet 5 mg PO TID PRN #80 tab 01/06/21 furosemide [Lasix] 20 mg PO DAILY #10 tab 01/09/21 Allergies Allergy/AdvReac Type Severity Reaction Status Date / Time haloperidol [HALOPERIDOL] Allergy Intermediate SWELLING Verified 07/14/20 22:44 carbamazepine [From Tegretol] Allergy Mild RASH, Verified 07/14/20 22:44 TREMORS lithium [Kamiah] Allergy Mild RASH, Verified 07/14/20 22:44 CRAWLING OUT OF SKIN olanzapine [From Zyprexa] Allergy Mild RICHARD Verified 07/14/20 22:44 quetiapine [From Seroquel] Allergy Mild SWELLING Verified 07/14/20 22:44 WHOLE BODY, RICHARD topiramate [From TOPAMAX] Allergy Unknown RICHARD, SI Verified 07/14/20 22:44 trazodone [TRAZODONE] Allergy Unknown SYNCOPE Verified 07/14/20 22:44 aripiprazole [From ABILIFY] AdvReac Severe EXTREME SI Verified 07/14/20 22:44 lamotrigine [From Lamictal] AdvReac Mild RICHARD Verified 07/14/20 22:44 modafinil [From Provigil] AdvReac Mild RICHARD Verified 07/14/20 22:44 ALL ANTI DEPRESSENTS Allergy Unknown I GO Uncoded 06/06/20 14:55 MANIC All anti-depressants Allergy Unknown manic, rash Uncoded 05/02/20 00:00 From GEODON Allergy Unknown LETHARGY Uncoded 06/06/20 14:55 From WELLBUTRIN AdvReac Unknown AGITATION, Uncoded 06/06/20 14:55 MAVIS Review of Systems Review of Systems: All other systems are reviewed and are negative Constitutional: Reports as per HPI and Reports no additional constitutional complaints Eyes: Reports as per HPI and Reports no additional eye complaints Reports system reviewed and no additional complaints, except as documented Cardiovascular: Reports as per HPI and Reports no additional cardiovascular complaints Respiratory: Reports as per HPI and Reports no additional respiratory complaints Gastrointestinal: Reports as per HPI and Reports no additional gastrointestinal complaints Genitourinary: Reports no additional female genitourinary complaints Musculoskeletal: Reports no additional musculoskeletal complaints Skin/Breast: Reports system reviewed and no additional complaints, except as docu Psychiatric: Reports no additional psychiatric complaints Endocrine: Reports no additional endocrine complaints Hematologic/Lymphatic: Reports no additional hematologic/lymphatic complaints Allergic/Immunologic: Reports no additional allergic/immunologic complaints Reports system reviewed and no additional complaints, except as documented and Reports Abnormal speech present [facility] Past Medical History Medical History Anxiety and depression Asthma Chronic hepatitis C Dementia Diabetic nephropathy Fatty liver GERD (gastroesophageal reflux disease) Hypercholesterolemia Hypertension Obesity (BMI 30-39.9) Polysubstance abuse Type 2 diabetes mellitus with hyperglycemia Uterine prolapse Surgical History History of appendectomy History of cholecystectomy History of ectopic History of tonsillectomy Family History Family History Father Diabetes Hypertension Mother Hypertension Diabetes CVD (cardiovascular disease) CAD (coronary artery disease) Maternal Aunt Myocardial infarction Maternal Uncle Myocardial infarction Social History Social History (Updated 12/17/20 @ 11:46 by Kira Craven MD) Household Members: Significant Other Housing: House Alcohol intake: never Smoking Status: Never smoker Advance Directives: No Advance Directives Information Provided: No service: No Sexual orientation: Straight/Heterosexual Physical Exam Vital Signs: Vital Signs: Last Vital Signs Temp 98 F 01/09/21 13:04 Pulse 66 01/09/21 13:04 Resp 18 01/09/21 13:04 BP 142/79 H 01/09/21 13:04 Pulse Ox 96 01/09/21 13:04 Body Mass Index 35.6 Vital signs have been reviewed as appeared to be correct. Blood pressure normal. Heart rate normal. Respiration rate normal. Temperature normal. Oxygen saturation normal. Appearance: Alert. Oriented X3. No acute distress. Head: Normal external exam. Normocephalic. Atraumatic. No Hernandez signs noted. No raccoon eyes noted Eyes: PERRLA. EOMI. Conjunctiva and sclera normal. Eyelids normal. ENT: TM's Normal. Pharynx normal. Uvula midline. Moist mucous membranes. No trismus noted. No drooling noted. No muffled voice noted. Neck: Normal inspection. Neck supple. FROM. No adenopathy. Thyroid Normal. No meningeal signs. No neck mass noted. CVS: Normal heart rate and rhythm. Heart sound normal. No murmurs noted. Pulses normal throughout. Respiratory: No respiratory distress. Painless inspiration. Breath sounds normal. No wheezes/rales/rhonchi noted. Chest nontender. No accessory muscle usage noted or decreased air movement noted. Abdomen: Soft and nontender. Bowel sounds normal in all 4 quadrants. No distention noted. No organomegaly noted. No visible injury noted. Back: No CVA tenderness. Full range of motion noted. Skin: Skin warm and dry. Normal skin color. Normal skin turgor. No rashes/lesions/lacerations noted. Extremities: + 2 bilateral pitting lower extremity edema. Extremities exhibit normal range of motion. Extremities nontender. Neuro: Oriented X 3. No motor deficit. No sensory deficit. Reflexes normal. Course Course Course Narrative: Assessment and plan. Patient came in for complain of bilateral lower extremity swelling for the past 2 weeks, and also burning sensation in both lower extremities. Patient is known to have history of diabetic peripheral neuropathy which could explain patient's symptoms, patient had an ultrasound bilaterally which with no evidence of DVT. Labs are unremarkable. Will start the patient on Lasix to help with diuresis for 10 days and have the patient to follow-up with PCP. Medical Decision Making Lab Data Lab results reviewed: Yes I reviewed the patient's lab results. Result diagrams: 01/09/21 15:46 01/09/21 15:46 Labs: Lab Results 01/09/21 01/09/21 01/09/21 Range/Units 13:18 15:46 15:46 WBC 6.1 (4.8-10.8) X10*3/uL RBC 4.66 (4.20-5.50) X10*6/uL Hgb 12.8 (12.0-16.0) g/dl Hct 40.3 (37-47) % MCV 86.5 (80-98) fL MCH 27.5 (27.0-33.0) pg MCHC 31.8 (31.0-35.0) g/dl RDW 15.2 (11.0-16.0) % Plt Count 154 L (160-400) X10*3/uL MPV 10.0 (9.4-12.3) fL Immature Gran % (Auto) 0.3 (0.0-0.4) % Neut % (Auto) 39.2 L (45-73) % Lymph % (Auto) 47.3 H (20-40) % [place] % (Auto) 7.9 (2-11) % Eos % (Auto) 4.3 H (0-4) % Baso % (Auto) 1.0 (0-2) % Lymph # (Auto) 2.9 (1.2-4.9) X10*3/uL [place] # (Auto) 0.5 (0.1-1.2) X10*3/uL Eos # (Auto) 0.3 (0.0-0.4) X10*3/uL Baso # (Auto) 0.1 (0.0-0.2) X10*3/uL Abs Immat Gran (auto) 0.02 (0.00-0.03) X10*3/uL Absolute Neuts (auto) 2.4 (2.0-8.3) X10*3/uL Absolute Nucleated RBC 0.000 (0.0-0.012) X10*3/uL Nucleated RBC % (auto) 0.0 (0.0-0.2) /100WBC Sodium 140 (135-145) mmol/L Potassium 4.6 (3.3-5.1) mmol/L Chloride 106 (96-108) mmol/L Carbon Dioxide 23 (22-29) mmol/L Anion Gap 16 (12-20) BUN 17 H (9-16) mg/dL Creatinine 0.80 (0.5-1.4) mg/dL Estim Creat Clear Calc 77.2 Estimated GFR > 60 Random Glucose 96 D (60-115) mg/dL Calcium 9.8 (8.4-10.2) mg/dL Total Bilirubin 0.5 (0.0-1.0) mg/dL Direct Bilirubin 0.2 (0.0-0.5) mg/dL AST 58 H (5-31) U/L ALT 65 H (0-31) U/L Alkaline Phosphatase 137 H D (39-117) U/L B-Natriuretic Peptide (<100) pg/mL Total Protein 8.4 H (6.5-8.0) g/dL Albumin 4.4 (3.5-5.0) g/dL Urine Color YELLOW Urine Appearance CLEAR Urine pH 6.0 (5.0-8.0) Ur Specific [place] 1.010 (1.005-1.025) Urine Protein NEG (NEG-TRACE) MG/DL Urine Glucose (UA) NEG (NEG) MG/DL Urine Ketones NEG (NEG) MG/DL Urine Blood NEG (NEG) Urine Nitrite NEG (NEG) Ur Leukocyte Esterase NEG (NEG) 01/09/21 Range/Units 15:46 WBC (4.8-10.8) X10*3/uL RBC (4.20-5.50) X10*6/uL Hgb (12.0-16.0) g/dl Hct (37-47) % MCV (80-98) fL MCH (27.0-33.0) pg MCHC (31.0-35.0) g/dl RDW (11.0-16.0) % Plt Count (160-400) X10*3/uL MPV (9.4-12.3) fL Immature Gran % (Auto) (0.0-0.4) % Neut % (Auto) (45-73) % Lymph % (Auto) (20-40) % [place] % (Auto) (2-11) % Eos % (Auto) (0-4) % Baso % (Auto) (0-2) % Lymph # (Auto) (1.2-4.9) X10*3/uL [place] # (Auto) (0.1-1.2) X10*3/uL Eos # (Auto) (0.0-0.4) X10*3/uL Baso # (Auto) (0.0-0.2) X10*3/uL Abs Immat Gran (auto) (0.00-0.03) X10*3/uL Absolute Neuts (auto) (2.0-8.3) X10*3/uL Absolute Nucleated RBC (0.0-0.012) X10*3/uL Nucleated RBC % (auto) (0.0-0.2) /100WBC Sodium (135-145) mmol/L Potassium (3.3-5.1) mmol/L Chloride (96-108) mmol/L Carbon Dioxide (22-29) mmol/L Anion Gap (12-20) BUN (9-16) mg/dL Creatinine (0.5-1.4) mg/dL Estim Creat Clear Calc Estimated GFR Random Glucose (60-115) mg/dL Calcium (8.4-10.2) mg/dL Total Bilirubin (0.0-1.0) mg/dL Direct Bilirubin (0.0-0.5) mg/dL AST (5-31) U/L ALT (0-31) U/L Alkaline Phosphatase (39-117) U/L B-Natriuretic Peptide 27 (<100) pg/mL Total Protein (6.5-8.0) g/dL Albumin (3.5-5.0) g/dL Urine Color Urine Appearance Urine pH (5.0-8.0) Ur Specific [place] (1.005-1.025) Urine Protein (NEG-TRACE) MG/DL Urine Glucose (UA) (NEG) MG/DL Urine Ketones (NEG) MG/DL Urine Blood (NEG) Urine Nitrite (NEG) Ur Leukocyte Esterase (NEG) Imaging Data Bilateral lower extremities ultrasound: Radiologist's impression: No evidence of DVT. Discharge Plan Discharge Clinical Impression: Edema Qualifiers: Edema type: unspecified Qualified Code(s): R60.9 - Edema, unspecified Patient Disposition: Home, Self-Care Instructions: Edema (ED) Additional Instructions: Elevated the legs while sleeping at night. Prescriptions: New furosemide [Lasix] 20 mg tablet 20 mg PO DAILY Qty: 10 RF: 0 No Action aspirin 81 mg tablet,delayed release (DR/EC) 81 mg PO DAILY Qty: 30 RF: 4 fluticasone furoate [Arnuity Ellipta] 100 mcg/actuation blister with device 1 inh PO DAILY Qty: 30 RF: 11 lancets [FreeStyle Lancets] 28 gauge misc 28 gauge miscellaneous DIRECTED Qty: 100 RF: 3 fluticasone propionate [Flovent HFA] 110 mcg/actuation HFA aerosol inhaler 1 puff PO BID Qty: 12 RF: 5 lisinopril 20 mg tablet 20 mg PO DAILY Qty: 30 RF: 5 gabapentin 300 mg capsule 300 mg PO BID Qty: 60 RF: 5 darifenacin 7.5 mg tablet extended release 24 hr 7.5 mg PO DAILY Qty: 30 RF: 5 amlodipine 5 mg tablet 5 mg PO DAILY Qty: 90 RF: 1 (DME) Pull-ups large See Rx Instructions .Route .MEDSUPPLY Qty: 240 RF: 11 meloxicam 15 mg tablet 15 mg PO DAILY Qty: 30 RF: 5 blood sugar diagnostic [FreeStyle Lite Strips] Strip 1 strip miscellaneous .QD 90 Days Qty: 100 RF: 3 metformin 500 mg tablet 500 mg PO BID Qty: 60 RF: 5 cyclobenzaprine 5 mg tablet 5 mg PO TID PRN (Reason: for muscle spasm) Qty: 80 RF: 1 loxapine succinate 5 mg Capsule 5 mg PO BEDTIME RF: 0 clonazepam 1 mg tablet 1 mg PO BID RF: 0 benztropine 1 mg tablet 1 mg PO BID@0830,2100 RF: 0 insulin lispro [Humalog U-100 Insulin] 100 unit/mL Solution 2 unit subcut QIDACHS 15 Days RF: 0 loxapine succinate 10 mg Capsule 10 mg PO BID RF: 0 propranolol 20 mg Tablet 20 mg PO TID RF: 0 clonazepam 0.5 mg tablet 1 mg PO DAILY PRN (Reason: Anxiety) RF: 0 Referrals: Po,Kira Campos MD [Primary Care Provider] - 2 days
[2021-01-09 18:32] LABS: Alanine Aminotransferase 65 U/L (0-31); Albumin Level 4.4 g/dL (3.5-5.0); Alkaline Phosphatase 137 U/L (39-117); Aspartate Amino Transferase 58 U/L (5-31); Bilirubin Direct 0.2 mg/dL (0.0-0.5); Bilirubin Total 0.5 mg/dL (0.0-1.0); Total Protein 8.4 g/dL (6.5-8.0)
[2021-01-09 19:46] VITALS: BP 148/85; PULSE 68; RESP 18; O2SAT 97
== END 2021-01-09 19:51 | disposition home or self-care (01) ==
PROVIDERS: Emergency Provider Emergency Medicine; PCP Internal Medicine
DX: R60.0 Localized edema (principal); M79.605 Pain in left leg; M79.604 Pain in right leg; E11.9 Type 2 diabetes mellitus without complications; I10 Essential (primary) hypertension; E78.00 Pure hypercholesterolemia, unspecified; K21.9 Gastro-esophageal reflux disease without esophagitis; B18.2 Chronic viral hepatitis C; F19.10 Other psychoactive substance abuse, uncomplicated; Z79.4 Long term (current) use of insulin; Z79.82 Long term (current) use of aspirin
CPT/HCPCS: 36415; 80048; 80076; 81003; 83880; 85025; 93970; 99284

== ENCOUNTER 2021-02-11 12:05 | Outpatient (REF) | payer OTHER, SELFPAY ==
--- NOTE | ~2021-02-11 | MM_ITS ---
EXAMINATION: MM SCREENING DIGITAL BREAST TOMOSYNTHESIS, BILATERAL CLINICAL INFORMATION: Screening. Asymptomatic. The lifetime risk of breast cancer based on the Tyrer-Cuzick Model is 5%. COMPARISON: Mammography: 05/26/2017, 04/15/2016, 03/02/2014 TECHNIQUE: Digital breast tomosynthesis is performed in both the craniocaudal and mediolateral oblique views along with computer-aided detection (CAD). Synthesized 2D images are generated from the tomosynthesis. FINDINGS: There are scattered areas of fibroglandular density (ACR BI-RADS breast composition Category b). There is no mass or developing density or architectural abnormality. Parenchymal pattern is similar to prior studies. Again, there are scattered bilateral punctate round and vascular calcifications and some rim calcifications. The axilla and skin contours are unremarkable. No significant changes from prior studies. MM/MM tomosynthesis screening BI IMPRESSION: No mammographic evidence of malignancy. ASSESSMENT: BI-RADS 2: Benign RECOMMENDATION: Routine annual mammography screening. This patient's information was entered into a reminder system with a target due date for their next mammogram.
== END 2021-02-11 12:06 | disposition home or self-care (01) ==
LOC: HO.MAMMO 12:05
PROVIDERS: Visit Provider Internal Medicine
DX: Z12.31 Encounter for screening mammogram for malignant neoplasm of breast (principal)
CPT/HCPCS: 77063; 77067

== ENCOUNTER 2021-03-19 16:08 | Emergency (ER) | payer OTHER, SELFPAY ==
--- NOTE | ~2021-03-19 | XR_ITS ---
EXAMINATION: XR CHEST CLINICAL INFORMATION: Altered mental status COMPARISON: None TECHNIQUE: Frontal view of the chest was obtained. FINDINGS: Cardiac silhouette is normal in size. The lungs are adequately aerated. There is similar prominent asymmetric elevation right hemidiaphragm. There is no lobar consolidation. No pleural effusion or pneumothorax. No acute osseous abnormality. XR/XR chest 1V IMPRESSION: Stable examination demonstrating no acute pulmonary pathology.
--- NOTE | ~2021-03-19 | CT_ITS ---
EXAMINATION: CTA OF THE HEAD AND NECK CLINICAL INFORMATION: Loss of balance with confusion. New strabismus. COMPARISON: Head CT from 06/16/2020. TECHNIQUE: Test bolus sequences followed by intravenous administration 70 mL of Omnipaque 350. Helical imaging was performed in the axial plane from the mediastinum to the skull vertex. Delayed postcontrast imaging of the head was also performed. The data was processed at the cytogenetic technologist's workstation for generation of MIP sequences. Three-dimensional volume rendered reformatted images were also generated at an offline 3-D workstation. Stenoses are assessed in accordance with NASCET criteria unless otherwise indicated. This CT examination was performed using dose optimization techniques as appropriate, variously including the following: *Automated exposure control *Adjustment of mA and/or kV according to patient size (this includes techniques or standardized protocols for targeted exams where dose is matched to indication/reason for exam; i.e. extremities or head) *Use of iterative reconstruction technique DLP: 2243 mGy-cm. FINDINGS: CT head: There is no evidence of acute intracranial hemorrhage or territorial infarction. There is no loss of dominguez to white matter differentiation. No abnormal mass effect or midline shift is seen. No extra-axial fluid collections are identified. There is no abnormal enhancement. The ventricles are normal in size. There is no abnormal attenuation within the brain parenchyma. The osseous structures and soft tissues are normal. The mastoid air cells and visualized portions of the paranasal sinuses are well aerated. CTA neck: The imaged aortic arch and origins of the great vessels are normal. The common carotid arteries are widely patent. The carotid bifurcations are patent with mild atherosclerotic wall calcifications on the right side. The cervical internal carotid arteries are normal. The vertebral arteries opacify normally and are of normal caliber. The soft tissues of the neck are unremarkable. Linear subsegmental atelectatic changes visible anteriorly in the right upper lobe. CTA head: The intradural vertebral arteries and basilar artery are normal. The posterior cerebral arteries are widely patent. The internal carotid arteries are of normal caliber. The PEÑA and MCA vascular complexes bilaterally are normal. The venous sinuses opacify normally. CT/CT angio head neck IMPRESSION: No acute process. Normal CT angiogram of the head and neck. Imaging findings reported to RUDOLPH eKating at 8:05 PM on 03/19/2021.
[2021-03-19 16:27] VITALS: BP 155/92; PULSE 74; PULSE 76; RESP 18; TEMP 36.8; O2SAT 100; O2SAT 98; BMI 39.6
--- NOTE | 2021-03-19 17:28 | ECG_ITS ---
Test Reason : WEAKNESS Blood Pressure : / mmHG Vent. Rate : 068 BPM Atrial Rate : 068 BPM P-R Int : 192 ms QRS Dur : 104 ms QT Int : 434 ms P-R-T Axes : 048 -45 045 degrees QTc Int : 461 ms Normal sinus rhythm Left anterior fascicular block Abnormal ECG When compared with ECG of 26-OCT-2020 10:24, No significant change was found Referred By: Makenzie Carrera Electronically Signed By:MARC QIU MD
[2021-03-19 17:50] LABS: MANUAL DIFF FLAG NO
[2021-03-19 17:57] LABS: INTERNATIONAL NORM RATIO 1.1 (0.9-1.1); Prothrombin Time 13.4 SEC (10.8-13.0)
[2021-03-19 17:59] LABS: Basophils Absolute Auto 0.1 X10*3/uL (0.0-0.2); Basophils Percent Auto 1.1 % (0-2); Eosinophils Absolute Auto 0.2 X10*3/uL (0.0-0.4); Eosinophils Percent Auto 3.4 % (0-4); Hemoglobin 13.1 g/dl (12.0-16.0); Imm Gran Abs Auto 0.01 X10*3/uL (0.00-0.03); Imm Gran Pct Auto 0.2 % (0.0-0.4); Lymphocytes Absolute Auto 2.3 X10*3/uL (1.2-4.9); Mean Corpuscular HGB Conc 32.8 g/dl (31.0-35.0); Mean Corpuscular Hemoglobin 27.8 pg (27.0-33.0); Mean Corpuscular Volume 84.9 fL (80-98); Mean Platelet Volume 10.5 fL (9.4-12.3); Monocytes Absolute Auto 0.5 X10*3/uL (0.1-1.2); Monocytes Percent Auto 8.7 % (2-11); Neutrophils Absolute Auto 2.6 X10*3/uL (2.0-8.3); Neutrophils Percent Auto 45.6 % (45-73); Platelet Count 130 X10*3/uL (160-400); Red Blood Count 4.71 X10*6/uL (4.20-5.50); White Blood Count 5.6 X10*3/uL (4.8-10.8)
[2021-03-19 18:00] LABS: Partial Thromboplastin Time 50.3 SEC (24.1-38.0)
[2021-03-19 18:23] LABS: Alanine Aminotransferase 79 U/L (0-31); Albumin Level 4.3 g/dL (3.5-5.0); Alkaline Phosphatase 105 U/L (39-117); Anion Gap 15 (12-20); Aspartate Amino Transferase 77 U/L (5-31); Bilirubin Direct 0.2 mg/dL (0.0-0.5); Bilirubin Total 0.5 mg/dL (0.0-1.0); Blood Urea Nitrogen 19 mg/dL (9-16); Carbon Dioxide 24 mmol/L (22-29); Chloride 105 mmol/L (96-108); Creatinine Clr Calc Pharmacy 73.8; Estimated Glomerular Filt Rate > 60; Glucose Random 161 mg/dL (60-115); Magnesium 1.8 mg/dL (1.6-2.6); Potassium 4.8 mmol/L (3.3-5.1); Sodium 139 mmol/L (135-145); Total Protein 8.3 g/dL (6.5-8.0)
[2021-03-19 18:29] VITALS: BP 130/87; PULSE 72; RESP 16; TEMP 37.1; O2SAT 95
--- NOTE | 2021-03-19 18:30 | ED_ITS ---
HPI - Weakness General Chief complaint: Weakness Stated complaint: CONFUSION,BLURRED VISION Time Seen by Provider: 03/19/21 17:27 Source: patient and family Mode of arrival: ambulatory Limitations: other ( Baseline dementia, poor historian) History of Present Illness HPI Narrative: 60-year-old female with past medical history of peripheral vascular disease, hypertension, hyperlipidemia, type 2 diabetes, diabetic neuropathy, schizoaffective disorder and vascular dementia without behavioral disturbance presents with blurred vision, strabismus, and loss of balance with increased confusion per family. Patient is unable to answer questions about her past medical history, but at this time denies any physical complaints with the exception of her change in vision. MD Complaint: generalized weakness and difficulty walking Onset (ago): unknown Duration: progressively worsening Severity: moderate Relieving factors: none Exacerbating factors: movement Associated symptoms: denies other symptoms Related Data Home Medications Medication Instructions Recorded Confirmed clonazepam 0.5 mg tablet 1 mg PO DAILY PRN tab 07/08/20 01/14/21 loxapine succinate 10 mg PO BID 07/14/20 01/14/21 propranolol 20 mg PO TID 07/14/20 01/14/21 benztropine 1 mg PO BID@0830,2100 10/25/20 01/14/21 clonazepam 1 mg PO BID 10/25/20 01/14/21 loxapine succinate 5 mg PO BEDTIME 10/25/20 01/14/21 Previous Rx's Medication Instructions Recorded fluticasone furoate 100 1 inh PO DAILY #30 ea 09/03/20 mcg/actuation blister powder for inhalation lancets 28 gauge 28 gauge MISCELLANEOUS DIRECTED 09/09/20 #100 ea fluticasone propionate 110 1 puff PO BID #12 g 09/23/20 mcg/actuation HFA aerosol inhaler darifenacin 7.5 mg tablet,extended 7.5 mg PO DAILY #30 tab 10/14/20 release 24 hr gabapentin 300 mg capsule 300 mg PO BID #60 cap 10/14/20 insulin lispro [Humalog U-100 2 unit SUBCUT QIDACHS 15 Days ml 11/01/20 Insulin] Pull-ups large #240 ea 11/08/20 meloxicam 15 mg tablet 15 mg PO DAILY #30 tab 11/11/20 blood sugar diagnostic 1 strip MISCELLANEOUS .QD 90 Days 11/18/20 #100 strip furosemide [Lasix] 20 mg PO DAILY #10 tab 01/09/21 compress.stocking,knee,reg,lrg #2 ea 01/14/21 lisinopril 30 mg tablet 30 mg PO DAILY #30 tab 01/14/21 meclizine 25 mg tablet 25 mg PO DAILY 30 Days #30 tab 02/09/21 aspirin 81 mg tablet,delayed 81 mg PO DAILY 90 Days #90 tab 02/20/21 release cyclobenzaprine 5 mg tablet 5 mg PO TID PRN #80 tab 03/03/21 PULL UPS LArge #240 ea 03/11/21 shower chair #1 ea 03/11/21 metformin 500 mg tablet 500 mg PO BID 90 Days #180 tab 03/12/21 Allergies Allergy/AdvReac Type Severity Reaction Status Date / Time haloperidol [HALOPERIDOL] Allergy Intermediate SWELLING Verified 07/14/20 22:44 carbamazepine [From Tegretol] Allergy Mild RASH, Verified 07/14/20 22:44 TREMORS lithium [[place]] Allergy Mild RASH, Verified 07/14/20 22:44 CRAWLING OUT OF SKIN olanzapine [From Zyprexa] Allergy Mild RICHARD Verified 07/14/20 22:44 quetiapine [From Seroquel] Allergy Mild SWELLING Verified 07/14/20 22:44 WHOLE BODY, RICHARD topiramate [From TOPAMAX] Allergy Unknown RICHARD, SI Verified 07/14/20 22:44 trazodone [TRAZODONE] Allergy Unknown SYNCOPE Verified 07/14/20 22:44 aripiprazole [From ABILIFY] AdvReac Severe EXTREME SI Verified 07/14/20 22:44 lamotrigine [From Lamictal] AdvReac Mild RICHARD Verified 07/14/20 22:44 modafinil [From Provigil] AdvReac Mild RICHARD Verified 07/14/20 22:44 ALL ANTI DEPRESSENTS Allergy Unknown I GO Uncoded 06/06/20 14:55 MANIC All anti-depressants Allergy Unknown manic, rash Uncoded 05/02/20 00:00 From GEODON Allergy Unknown LETHARGY Uncoded 06/06/20 14:55 From WELLBUTRIN AdvReac Unknown AGITATION, Uncoded 06/06/20 14:55 MAVIS Review of Systems Review of Systems: Constitutional: Positive increasing confusion, No Fever, No Chills ENT/Mouth: No Ear Pain, No Hoarseness, No sore throat Eyes: positive blurred vision, No Eye Pain, No Swelling, No Redness, No Foreign Body Cardiovascular: No Chest Pain, No SOB Respiratory: No Cough, No Dyspnea Gastrointestinal: No Nausea, No Vomiting, No Diarrhea, No abdominal Pain Genitourinary: No Dysuria, No Hematuria Musculoskeletal: no joint pain, No Myalgias, No Joint Swelling Skin: No Skin lacerations, No rash Neuro: No Weakness, No Numbness, No Paresthesias, No Loss of Consciousness, No Dizziness, No Headache Psych: No Anxiety/Panic, No Depression Heme/Lymph: no easy bruising, no Lymphadenopathy Endocrine: No Polyuria, No Polydipsia Yes all other systems are reviewed and are negative [facility] Past Medical History Attestation statement: The following information was validated with the patient. Source: old records reviewed Medical History Asthma Chronic hepatitis C Dementia Diabetic nephropathy Fatty liver GERD (gastroesophageal reflux disease) Hypercholesterolemia Hypertension Obesity (BMI 30-39.9) Peripheral vascular disease Polysubstance abuse Type 2 diabetes mellitus with hyperglycemia Uterine prolapse Surgical History History of appendectomy History of cholecystectomy History of ectopic History of tonsillectomy Family History Family History Father Diabetes Hypertension Mother Hypertension Diabetes CVD (cardiovascular disease) CAD (coronary artery disease) Maternal Aunt Myocardial infarction Maternal Uncle Myocardial infarction Social History Social History Household Members: Significant Other Housing: House Do you presently have visiting nurse or other home services: No Unable to assess alcohol history related to: Unknown Alcohol intake: never Advance Directives: No Advance Directives Information Provided: Yes service: No Sexual orientation: Straight/Heterosexual Physical Exam Vital Signs: Vital Signs: Last Vital Signs Temp 97.4 F 03/19/21 19:25 Pulse 72 03/19/21 19:25 Resp 16 03/19/21 19:25 BP 139/89 03/19/21 19:25 Pulse Ox 99 03/19/21 19:25 Body Mass Index 39.6 Appearance: Alert. Oriented X3. No acute distress. Eyes: Pupils equal, round and reactive to light. ENT: Pharynx normal. Neck: Normal inspection. Neck supple. CVS: Normal heart rate and rhythm. Pulses normal. Respiratory: No respiratory distress. Breath sounds normal. Abdomen: Soft and nontender. Skin: Skin warm and dry. Normal skin color. Normal skin turgor. Extremities: No lower extremity edema. Neuro: No motor deficit. No sensory deficit. Course Course Course Narrative: 60-year-old female presents with multiple complaints. Will rule out CVA with CT angio head and neck. She has had these symptoms for multiple days outside the window of tPA. Will order CBC, Chem 7, and urinalysis. cta negative 8:05 p.m.. lab values are unremarkable. It is unknown why this patient is having blurred vision and strabismus. Detailed discussion with daughter who is a nurse, plan is to follow up with patient's neurologist as well as primary care physician as patient does not have any findings requiring beronica rgent intervention. MDM - Weakness MDM Narrative Medical decision making narrative: CVA Differential Diagnosis Differential diagnosis: Likely UTI, anemia, hypoglycemia, hypothyroidism, rhabdomyolysis, sepsis and dehydration Medical Records Attestation: I reviewed the patient's medical records. Lab Data Attestation: I reviewed the patient's lab results. Result diagrams: 03/19/21 17:47 03/19/21 17:47 Labs: Lab Results 03/19/21 03/19/21 03/19/21 Range/Units 17:47 17:47 17:47 WBC 5.6 (4.8-10.8) X10*3/uL RBC 4.71 (4.20-5.50) X10*6/uL Hgb 13.1 (12.0-16.0) g/dl Hct 40.0 (37-47) % MCV 84.9 (80-98) fL MCH 27.8 (27.0-33.0) pg MCHC 32.8 (31.0-35.0) g/dl RDW 15.0 (11.0-16.0) % Plt Count 130 L (160-400) X10*3/uL MPV 10.5 (9.4-12.3) fL Immature Gran % (Auto) 0.2 (0.0-0.4) % Neut % (Auto) 45.6 (45-73) % Lymph % (Auto) 41.0 H (20-40) % Peach % (Auto) 8.7 (2-11) % Eos % (Auto) 3.4 (0-4) % Baso % (Auto) 1.1 (0-2) % Lymph # (Auto) 2.3 (1.2-4.9) X10*3/uL Peach # (Auto) 0.5 (0.1-1.2) X10*3/uL Eos # (Auto) 0.2 (0.0-0.4) X10*3/uL Baso # (Auto) 0.1 (0.0-0.2) X10*3/uL Abs Immat Gran (auto) 0.01 (0.00-0.03) X10*3/uL Absolute Neuts (auto) 2.6 (2.0-8.3) X10*3/uL Absolute Nucleated RBC 0.000 (0.0-0.012) X10*3/uL Nucleated RBC % (auto) 0.0 (0.0-0.2) /100WBC PT 13.4 H (10.8-13.0) SEC INR 1.1 (0.9-1.1) APTT 50.3 H (24.1-38.0) SEC Sodium 139 (135-145) mmol/L Potassium 4.8 (3.3-5.1) mmol/L Chloride 105 (96-108) mmol/L Carbon Dioxide 24 (22-29) mmol/L Anion Gap 15 (12-20) BUN 19 H (9-16) mg/dL Creatinine 0.82 (0.5-1.4) mg/dL Estim Creat Clear Calc 73.8 Estimated GFR > 60 POC Glucose (60-115) mg/dL Random Glucose 161 H D (60-115) mg/dL Calcium 10.0 (8.4-10.2) mg/dL Magnesium 1.8 (1.6-2.6) mg/dL Total Bilirubin 0.5 (0.0-1.0) mg/dL Direct Bilirubin 0.2 (0.0-0.5) mg/dL AST 77 H (5-31) U/L ALT 79 H (0-31) U/L Alkaline Phosphatase 105 D (39-117) U/L Total Creatine Kinase 39 (26-140) U/L Troponin I High Sens (<3.5-17.0) ng/L Total Protein 8.3 H (6.5-8.0) g/dL Albumin 4.3 (3.5-5.0) g/dL TSH 0.98 (0.32-4.0) uIU/mL Urine Color Urine Appearance Urine pH (5.0-8.0) Ur Specific [place] (1.005-1.025) Urine Protein (NEG-TRACE) MG/DL Urine Glucose (UA) (NEG) MG/DL Urine Ketones (NEG) MG/DL Urine Blood (NEG) Urine Nitrite (NEG) Ur Leukocyte Esterase (NEG) Urine Opiates Screen (Not Detect) Ur Barbiturates Screen (Not Detect) Ur Phencyclidine Scrn (Not Detect) Ur Amphetamines Screen (Not Detect) U Benzodiazepines Scrn (Not Detect) Urine Cocaine Screen (Not Detect) U Marijuana (THC) Screen (Not Detect) 03/19/21 03/19/21 03/19/21 Range/Units 17:47 18:29 18:36 WBC (4.8-10.8) X10*3/uL RBC (4.20-5.50) X10*6/uL Hgb (12.0-16.0) g/dl Hct (37-47) % MCV (80-98) fL MCH (27.0-33.0) pg MCHC (31.0-35.0) g/dl RDW (11.0-16.0) % Plt Count (160-400) X10*3/uL MPV (9.4-12.3) fL Immature Gran % (Auto) (0.0-0.4) % Neut % (Auto) (45-73) % Lymph % (Auto) (20-40) % Peach % (Auto) (2-11) % Eos % (Auto) (0-4) % Baso % (Auto) (0-2) % Lymph # (Auto) (1.2-4.9) X10*3/uL [place] # (Auto) (0.1-1.2) X10*3/uL Eos # (Auto) (0.0-0.4) X10*3/uL Baso # (Auto) (0.0-0.2) X10*3/uL Abs Immat Gran (auto) (0.00-0.03) X10*3/uL Absolute Neuts (auto) (2.0-8.3) X10*3/uL Absolute Nucleated RBC (0.0-0.012) X10*3/uL Nucleated RBC % (auto) (0.0-0.2) /100WBC PT (10.8-13.0) SEC INR (0.9-1.1) APTT (24.1-38.0) SEC Sodium (135-145) mmol/L Potassium (3.3-5.1) mmol/L Chloride (96-108) mmol/L Carbon Dioxide (22-29) mmol/L Anion Gap (12-20) BUN (9-16) mg/dL Creatinine (0.5-1.4) mg/dL Estim Creat Clear Calc Estimated GFR POC Glucose 142 H (60-115) mg/dL Random Glucose (60-115) mg/dL Calcium (8.4-10.2) mg/dL Magnesium (1.6-2.6) mg/dL Total Bilirubin (0.0-1.0) mg/dL Direct Bilirubin (0.0-0.5) mg/dL AST (5-31) U/L ALT (0-31) U/L Alkaline Phosphatase (39-117) U/L Total Creatine Kinase (26-140) U/L Troponin I High Sens < 3.5 (<3.5-17.0) ng/L Total Protein (6.5-8.0) g/dL Albumin (3.5-5.0) g/dL TSH (0.32-4.0) uIU/mL Urine Color YELLOW Urine Appearance CLEAR Urine pH 6.0 (5.0-8.0) Ur Specific [place] 1.020 (1.005-1.025) Urine Protein TRACE (NEG-TRACE) MG/DL Urine Glucose (UA) NEG (NEG) MG/DL Urine Ketones 5 (NEG) MG/DL Urine Blood NEG (NEG) Urine Nitrite NEG (NEG) Ur Leukocyte Esterase NEG (NEG) Urine Opiates Screen (Not Detect) Ur Barbiturates Screen (Not Detect) Ur Phencyclidine Scrn (Not Detect) Ur Amphetamines Screen (Not Detect) U Benzodiazepines Scrn (Not Detect) Urine Cocaine Screen (Not Detect) U Marijuana (THC) Screen (Not Detect) 03/19/21 Range/Units 18:36 WBC (4.8-10.8) X10*3/uL RBC (4.20-5.50) X10*6/uL Hgb (12.0-16.0) g/dl Hct (37-47) % MCV (80-98) fL MCH (27.0-33.0) pg MCHC (31.0-35.0) g/dl RDW (11.0-16.0) % Plt Count (160-400) X10*3/uL MPV (9.4-12.3) fL Immature Gran % (Auto) (0.0-0.4) % Neut % (Auto) (45-73) % Lymph % (Auto) (20-40) % [place] % (Auto) (2-11) % Eos % (Auto) (0-4) % Baso % (Auto) (0-2) % Lymph # (Auto) (1.2-4.9) X10*3/uL [place] # (Auto) (0.1-1.2) X10*3/uL Eos # (Auto) (0.0-0.4) X10*3/uL Baso # (Auto) (0.0-0.2) X10*3/uL Abs Immat Gran (auto) (0.00-0.03) X10*3/uL Absolute Neuts (auto) (2.0-8.3) X10*3/uL Absolute Nucleated RBC (0.0-0.012) X10*3/uL Nucleated RBC % (auto) (0.0-0.2) /100WBC PT (10.8-13.0) SEC INR (0.9-1.1) APTT (24.1-38.0) SEC Sodium (135-145) mmol/L Potassium (3.3-5.1) mmol/L Chloride (96-108) mmol/L Carbon Dioxide (22-29) mmol/L Anion Gap (12-20) BUN (9-16) mg/dL Creatinine (0.5-1.4) mg/dL Estim Creat Clear Calc Estimated GFR POC Glucose (60-115) mg/dL Random Glucose (60-115) mg/dL Calcium (8.4-10.2) mg/dL Magnesium (1.6-2.6) mg/dL Total Bilirubin (0.0-1.0) mg/dL Direct Bilirubin (0.0-0.5) mg/dL AST (5-31) U/L ALT (0-31) U/L Alkaline Phosphatase (39-117) U/L Total Creatine Kinase (26-140) U/L Troponin I High Sens (<3.5-17.0) ng/L Total Protein (6.5-8.0) g/dL Albumin (3.5-5.0) g/dL TSH (0.32-4.0) uIU/mL Urine Color Urine Appearance Urine pH (5.0-8.0) Ur Specific [place] (1.005-1.025) Urine Protein (NEG-TRACE) MG/DL Urine Glucose (UA) (NEG) MG/DL Urine Ketones (NEG) MG/DL Urine Blood (NEG) Urine Nitrite (NEG) Ur Leukocyte Esterase (NEG) Urine Opiates Screen Not Detected (Not Detect) Ur Barbiturates Screen Not Detected (Not Detect) Ur Phencyclidine Scrn Not Detected (Not Detect) Ur Amphetamines Screen Not Detected (Not Detect) U Benzodiazepines Scrn POSITIVE H (Not Detect) Urine Cocaine Screen Not Detected (Not Detect) U Marijuana (THC) Screen Not Detected (Not Detect) Imaging Data CT a head neck: Attestation: I personally reviewed and interpreted this imaging study as follows: Radiologist's impression: EXAMINATION: CTA OF THE HEAD AND NECK CLINICAL INFORMATION: Loss of balance with confusion. New strabismus. COMPARISON: Head CT from 06/16/2020. TECHNIQUE: Test bolus sequences followed by intravenous administration 70 mL of Omnipaque 350. Helical imaging was performed in the axial plane from the mediastinum to the skull vertex. Delayed postcontrast imaging of the head was also performed. The data was processed at the certified hyperbaric technologist's workstation for generation of MIP sequences. Three-dimensional volume rendered reformatted images were also generated at an offline 3-D workstation. Stenoses are assessed in accordance with NASCET criteria unless otherwise indicated. This CT examination was performed using dose optimization techniques as appropriate, variously including the following: *Automated exposure control *Adjustment of mA and/or kV according to patient size (this includes techniques or standardized protocols for targeted exams where dose is matched to indication/reason for exam; i.e. extremities or head) *Use of iterative reconstruction technique DLP: 2243 mGy-cm. FINDINGS: CT head: There is no evidence of acute intracranial hemorrhage or territorial infarction. There is no loss of dominguez to white matter differentiation. No abnormal mass effect or midline shift is seen. No extra-axial fluid collections are identified. There is no abnormal enhancement. The ventricles are normal in size. There is no abnormal attenuation within the brain parenchyma. The osseous structures and soft tissues are normal. The mastoid air cells and visualized portions of the paranasal sinuses are well aerated. CTA neck: The imaged aortic arch and origins of the great vessels are normal. The common carotid arteries are widely patent. The carotid bifurcations are patent with mild atherosclerotic wall calcifications on the right side. The cervical internal carotid arteries are normal. The vertebral arteries opacify normally and are of normal caliber. The soft tissues of the neck are unremarkable. Linear subsegmental atelectatic changes visible anteriorly in the right upper lobe. CTA head: The intradural vertebral arteries and basilar artery are normal. The posterior cerebral arteries are widely patent. The internal carotid arteries are of normal caliber. The PEÑA and MCA vascular complexes bilaterally are normal. The venous sinuses opacify normally. CT/CT angio head neck IMPRESSION: No acute process. Normal CT angiogram of the head and neck. Imaging findings reported to RUDOLPH Keating at 8:05 PM on 03/19/2021 Chest x-ray: Attestation: I personally reviewed and interpreted this imaging study as follows: Radiologist's impression: EXAMINATION: XR CHEST CLINICAL INFORMATION: Altered mental status COMPARISON: None TECHNIQUE: Frontal view of the chest was obtained. FINDINGS: Cardiac silhouette is normal in size. The lungs are adequately aerated. There is similar prominent asymmetric elevation right hemidiaphragm. There is no lobar consolidation. No pleural effusion or pneumothorax. No acute osseous abnormality. XR/XR chest 1V IMPRESSION: Stable examination demonstrating no acute pulmonary pathology. ECG Data Attestation: I personally reviewed and interpreted this ECG as follows: ECG interpretation date: 03/19/21 ECG interpretation time: 17:38 Interpretation: Vent. rate 68 BPM AK interval 192 ms QRS duration 104 ms QT/QTc 434/461 ms P-R-T axes 48 -45 45 Normal sinus rhythm Left anterior fascicular block Abnormal ECG When compared with ECG of 26-OCT-2020 10:24, No significant change was found Discharge Plan Discharge Clinical Impression: Altered mental status, Vision changes Patient Disposition: Home, Self-Care Instructions: Blurred Vision (ED) Additional Instructions: you were evaluated for multiple complaints. Your lab values are within normal limits. CT angio scan of head and neck are negative for acute findings. Chest x-ray is normal. EKG is normal sinus rhythm. We could not find a reason for your chronic confusion, or your blurred vision. Please follow-up with optometry. You must also follow up with Neurology. Please call and make an appointment with your neurologist this week. Thank you for choosing this emergency department for evaluation. Please follow-up with primary care physician as needed. Return to the emergency department for any new, concerning, or worsening symptoms. Prescriptions: No Action fluticasone furoate [Arnuity Ellipta] 100 mcg/actuation blister with device 1 inh PO DAILY Qty: 30 RF: 11 lancets [FreeStyle Lancets] 28 gauge misc 28 gauge miscellaneous DIRECTED Qty: 100 RF: 3 fluticasone propionate [Flovent HFA] 110 mcg/actuation HFA aerosol inhaler 1 puff PO BID Qty: 12 RF: 5 gabapentin 300 mg capsule 300 mg PO BID Qty: 60 RF: 5 darifenacin 7.5 mg tablet extended release 24 hr 7.5 mg PO DAILY Qty: 30 RF: 5 (DME) Pull-ups large See Rx Instructions .Route .MEDSUPPLY Qty: 240 RF: 11 meloxicam 15 mg tablet 15 mg PO DAILY Qty: 30 RF: 5 blood sugar diagnostic [FreeStyle Lite Strips] Strip 1 strip miscellaneous .QD 90 Days Qty: 100 RF: 3 meclizine 25 mg tablet 25 mg PO DAILY 30 Days Qty: 30 RF: 1 aspirin 81 mg tablet,delayed release (DR/EC) 81 mg PO DAILY 90 Days Qty: 90 RF: 3 cyclobenzaprine 5 mg tablet 5 mg PO TID PRN (Reason: for muscle spasm) Qty: 80 RF: 2 (DME) shower chair See Rx Instructions .Route .MEDSUPPLY Qty: 1 RF: 0 (DME) PULL UPS LArge See Rx Instructions .Route .MEDSUPPLY Qty: 240 RF: 0 metformin 500 mg tablet 500 mg PO BID 90 Days Qty: 180 RF: 2 loxapine succinate 5 mg Capsule 5 mg PO BEDTIME RF: 0 clonazepam 1 mg tablet 1 mg PO BID RF: 0 benztropine 1 mg tablet 1 mg PO BID@0830,2100 RF: 0 insulin lispro [Humalog U-100 Insulin] 100 unit/mL Solution 2 unit subcut QIDACHS 15 Days RF: 0 loxapine succinate 10 mg Capsule 10 mg PO BID RF: 0 propranolol 20 mg Tablet 20 mg PO TID RF: 0 furosemide [Lasix] 20 mg tablet 20 mg PO DAILY Qty: 10 RF: 0 clonazepam 0.5 mg tablet 1 mg PO DAILY PRN (Reason: Anxiety) RF: 0 (DME) compress.stocking,knee,reg,lrg Misc See Rx Instructions .ROUTE .MEDSUPPLY Qty: 2 RF: 0 lisinopril 30 mg tablet 30 mg PO DAILY Qty: 30 RF: 3 Referrals: Doc Victor [Physician] - 2 days ( Changes in vision) Jeny Dasilva MD [Physician] - 2 days Interventions: ED Discharge Assessment Last Done: 03/19/21 21:54 Discharge Date/Time: 03/19/21 22:01
[2021-03-19 18:31] LABS: Troponin-I High Sensitivity < 3.5 ng/L (<3.5-17.0)
[2021-03-19 18:32] LABS: Glucose, Whole Blood 142 mg/dL (60-115)
[2021-03-19 18:43] LABS: Thyroid Stimulating Hormone 0.98 uIU/mL (0.32-4.0)
[2021-03-19 18:46] LABS: Glucose Urine UA NEG (NEG); Leukocyte Esterase Urine NEG (NEG); Nitrite Urine NEG (NEG); Urine Blood NEG (NEG); Urine Ketones 5 MG/DL (NEG); Urine Protein TRACE MG/DL (NEG-TRACE)
[2021-03-19 18:47] LABS: Appearance Urine CLEAR; Color Urine YELLOW
[2021-03-19] MEDS: iohexoL 350 MG/ML 100 ML INFUS..BTL IV (18:53)
[2021-03-19] MEDS: 0.9 % Sodium Chloride 1,000 ML 999 ML IVCONT (19:00)
[2021-03-19 19:15] LABS: Amphetamine Screen Urine Not Detected (Not Detect); Barbiturates, Urine Not Detected (Not Detect); Benzodiazepines Screen Urine POSITIVE (Not Detect); Cannabinoid Screen Urine Not Detected (Not Detect); Cocaine Screen Urine Not Detected (Not Detect); Opiate Screen Urine Not Detected (Not Detect); Phencyclidine Screen Urine Not Detected (Not Detect)
[2021-03-19 19:25] VITALS: BP 139/89; PULSE 72; RESP 16; TEMP 36.3; O2SAT 99
--- NOTE | 2021-03-19 19:46 | PC.NURSE ---
patient had a sandwich and milk .
--- NOTE | 2021-03-19 20:44 | PC.NURSE ---
pt sister Shonna is [facility] - cell number [phone]. would like a call for updates
== END 2021-03-19 22:01 | disposition home or self-care (01) ==
PROVIDERS: Nurse Practitioner Family; Emergency Provider Emergency Medicine; PCP Internal Medicine
DX: R41.82 Altered mental status, unspecified (principal); H53.8 Other visual disturbances; H50.9 Unspecified strabismus; F01.51 Vascular dementia, unspecified severity, with behavioral disturbance; I10 Essential (primary) hypertension; E11.9 Type 2 diabetes mellitus without complications; Z79.4 Long term (current) use of insulin; Z79.899 Other long term (current) drug therapy
CPT/HCPCS: 36415; 51701; 70496; 70498; 71045; 80048; 80076; 80307; 81003; 82550; 82947; 83735; 84443; 84484; 85025; 85610; 85730; 93005; 96360; 99284; Q9967

== ENCOUNTER 2021-11-13 10:31 | Outpatient (REF) | payer OTHER, SELFPAY ==
[2021-11-13 10:53] LABS: MANUAL DIFF FLAG NO
[2021-11-13 11:33] LABS: Basophils Absolute Auto 0.1 X10*3/uL (0.0-0.2); Basophils Percent Auto 0.8 % (0-2); Eosinophils Absolute Auto 0.3 X10*3/uL (0.0-0.4); Eosinophils Percent Auto 3.3 % (0-4); Imm Gran Abs Auto 0.03 X10*3/uL (0.00-0.03); Imm Gran Pct Auto 0.4 % (0.0-0.4); Lymphocytes Absolute Auto 2.5 X10*3/uL (1.2-4.9); Lymphocytes Percent Auto 32.8 % (20-40); Mean Corpuscular HGB Conc 31.7 g/dl (31.0-35.0); Mean Corpuscular Volume 88.4 fL (80.0-98.0); Mean Platelet Volume 9.8 fL (9.4-12.3); Monocytes Absolute Auto 0.5 X10*3/uL (0.1-1.2); Monocytes Percent Auto 6.8 % (2-11); Neutrophils Absolute Auto 4.2 x10*3/uL (2.0-8.3); Neutrophils Percent Auto 55.9 % (45-73); Platelet Count 235 X10*3/uL (160-400); Red Blood Count 4.64 X10*6/uL (4.20-5.50); Red Cell Distribution Width 13.8 % (11.0-16.0); White Blood Count 7.5 X10*3/uL (4.8-10.8)
[2021-11-13 11:44] LABS: Alanine Aminotransferase 44 U/L (0-31); Albumin Level 4.2 g/dL (3.5-5.0); Alkaline Phosphatase 111 U/L (39-117); Anion Gap 14 (12-20); Aspartate Amino Transferase 47 U/L (5-31); Bilirubin Total 0.5 mg/dL (0.0-1.0); Blood Urea Nitrogen 16 mg/dL (9-16); Calcium 9.8 mg/dL (8.4-10.2); Carbon Dioxide 25 mmol/L (22-29); Chloride 104 mmol/L (96-108); Cholesterol 218 mg/dL; Estimated Glomerular Filt Rate > 60; Glucose Random 112 mg/dL (60-115); HDL Cholesterol 40 mg/dL; LDL Cholesterol Calculated 131 mg/dl; Sodium 138 mmol/L (135-145); Total Protein 8.3 g/dL (6.5-8.0); Triglycerides 238 mg/dL
[2021-11-13 12:08] LABS: Vitamin D 25-OH Total 28.6 ng/mL (>30)
== END 2021-11-13 10:32 | disposition home or self-care (01) ==
LOC: HO.LAB 10:31
PROVIDERS: PCP Internal Medicine; Visit Provider Psychiatry & Neurology Psychiatry
DX: G47.10 Hypersomnia, unspecified (principal); Z79.899 Other long term (current) drug therapy
CPT/HCPCS: 36415; 80053; 80061; 82306; 84443; 85025

== ENCOUNTER 2022-02-11 18:22 | Inpatient (IN) | payer OTHER, SELFPAY ==
[2022-02-11 19:02] VITALS: BP 153/90; PULSE 75; RESP 18; TEMP 37.1; O2SAT 93; BMI 36.6
--- NOTE | 2022-02-11 19:28 | ED.GENADULT ---
HPI - General Adult General Chief complaint: Psychiatric Symptoms <RUDOLPH Millan - Last Filed: 02/12/22 02:27> Stated complaint: crisis eval <RUDOLPH Millan - Last Filed: 02/12/22 02:27> Time Seen by Provider: 02/11/22 19:28 <RUDOLPH Millan - Last Filed: 02/12/22 02:27> Source: patient and family <RUDOLPH Millan Last Filed: 02/12/22 02:27> Mode of arrival: ambulatory <RUDOLPH Millan Last Filed: 02/12/22 02:27> Limitations: no limitations <RUDOLPH Millan Last Filed: 02/12/22 02:27> History of Present Illness HPI narrative: 61-year-old female past medical history significant for hepatitis-C, dementia, diabetes, GERD, obesity, polysubstance abuse, peripheral vascular disease presenting to the emergency department with a chief complaint of I am in [place] in [facility] . According to patient's who is sitting at the bedside patient has been altered for about 2 weeks, she has been reporting auditory and visual hallucinations throughout the past 2 weeks. At this time she tells me she is currently seeing family members and she is trying to touch them. She tells me that she is hearing voices and they are talking amongst themselves, she tells me she does not exactly what they are talking about. She denies homicidal ideation. But endorses suicidal ideation. She tells me plan is to kill herself with a gun shot wound. Patient does not have firearms at home. She denies any drugs, alcohol or tobacco. according to patient patient's she has been taking all her medications as prescribed. Denies any medical complaints at this time denies [place], neck pain, vision changes, dizziness, CP, SOB. Denies head truama. Per this has happened to her before. <RUDOLPH Millan Last Filed: 02/12/22 02:27> Onset (ago): week(s) (2) <RUDOLPH Millan Last Filed: 02/12/22 02:27> Related Data Home medications: Home Medications Medication Instructions Recorded Confirmed clonazepam 0.5 mg tablet 0.5 mg PO DAILY PRN tab 07/08/20 02/12/22 loxapine succinate 10 mg capsule 10 mg PO BID 07/14/20 02/11/22 propranolol 20 mg tablet 20 mg PO TID 07/14/20 02/11/22 benztropine 1 mg tablet 1 mg PO BID@0830,2100 10/25/20 02/11/22 clonazepam 1 mg tablet 1 mg PO BID 10/25/20 02/11/22 sennosides 8.6 mg capsule (senna) 8.6 mg PO BEDTIME 11/13/21 02/11/22 amlodipine 5 mg tablet 5 mg PO DAILY 12/09/21 02/11/22 lisinopril 30 mg tablet 30 mg PO DAILY 12/09/21 02/11/22 loxapine succinate 5 mg capsule 1 cap PO BEDTIME 02/11/22 02/11/22 mirabegron 25 mg tablet,extended 1 tab PO DAILY 02/11/22 02/11/22 release 24 hr (Myrbetriq) sitagliptin 100 mg tablet (Januvia) 1 tab PO DAILY 02/11/22 02/11/22 metformin 500 mg tablet,extended 2 tab PO DAILY 02/12/22 02/12/22 release 24 hr Previous Rx's Medication Instructions Recorded darifenacin 7.5 mg tablet,extended 7.5 mg PO DAILY #30 tab 10/14/20 release 24 hr Pull-ups large #240 ea 11/08/20 compress.stocking,knee,reg,lrg #2 ea 01/14/21 aspirin 81 mg tablet,delayed 81 mg PO DAILY 90 Days #90 tab 02/20/21 release PULL UPS LArge #240 ea 03/11/21 blood-glucose meter (FreeStyle #1 ea 04/25/21 Lite Meter) gabapentin 300 mg capsule 300 mg PO BID #180 cap 05/13/21 meloxicam 15 mg tablet 15 mg PO DAILY #90 tab 05/13/21 cyclobenzaprine 5 mg tablet 5 mg PO TID PRN #80 tab 08/17/21 Hand held Shower #1 ea 09/05/21 cane #1 ea 09/05/21 shower chair #1 ea 09/05/21 tub seat with back #1 ea 09/05/21 meclizine 25 mg tablet 25 mg PO DAILY 30 Days #90 tab 12/18/21 memantine 5 mg tablet 5 mg PO BID 30 Days #60 tab 12/25/21 atorvastatin 20 mg tablet 20 mg PO DAILY 30 Days #30 tab 01/12/22 <RUDOLPH Millan - Last Filed: 02/12/22 02:27> Allergies/adverse reactions: Allergies Allergy/AdvReac Type Severity Reaction Status Date / Time haloperidol [HALOPERIDOL] Allergy Intermediate SWELLING Verified 01/12/22 14:29 carbamazepine [From Tegretol] Allergy Mild RASH, Verified 01/12/22 14:29 TREMORS lithium [[place]] Allergy Mild RASH, Verified 01/12/22 14:29 CRAWLING OUT OF SKIN olanzapine [From Zyprexa] Allergy Mild KAILASH Verified 01/12/22 14:29 quetiapine [From Seroquel] Allergy Mild SWELLING Verified 01/12/22 14:29 WHOLE BODY, KAILASH topiramate [From TOPAMAX] Allergy Unknown KAILASH, SI Verified 01/12/22 14:29 trazodone [TRAZODONE] Allergy Unknown SYNCOPE Verified 01/12/22 14:29 aripiprazole [From ABILIFY] AdvReac Severe EXTREME SI Verified 01/12/22 14:29 lamotrigine [From Lamictal] AdvReac Mild KAILASH Verified 01/12/22 14:29 modafinil [From Provigil] AdvReac Mild KAILASH Verified 01/12/22 14:29 ALL ANTI DEPRESSENTS Allergy Unknown I GO Uncoded 01/12/22 14:29 MANIC All anti-depressants Allergy Unknown manic, rash Uncoded 01/12/22 14:29 From GEODON Allergy Unknown LETHARGY Uncoded 01/12/22 14:29 From WELLBUTRIN AdvReac Unknown AGITATION, Uncoded 01/12/22 14:29 MAVIS <RUDOLPH Millan - Last Filed: 02/12/22 02:27> Review of Systems Review of Systems: Constitutional : No Fever, No Chills ENT/Mouth : No Ear Pain, No Nasal Congestion, No sore throat Eyes: No Eye Pain, No Swelling, No Redness Cardiovascular : No Chest Pain, No SOB Respiratory : No Cough, No Sputum, No Dyspnea Gastrointestinal : No Nausea, No Vomiting, No Diarrhea, No Hematochezia, No Melena Genitourinary : No Dysuria, No Urinary Frequency, No Hematuria Musculoskeletal : No Myalgias Skin : No Skin Lesions, No rash Neuro : No Weakness, No Numbness, No Paresthesias, No Dizziness, No Headache Psych : No Anxiety, No Depression, positive SI, No HI, positive AH/VH All other systems reviewed and are negative <RUDOLPH Millan - Last Filed: 02/12/22 02:27> Yes all other systems are reviewed and are negative <RUDOLPH Millan - Last Filed: 02/12/22 02:27> [facility] Past Medical History Attestation statement: The following information was validated with the patient. <RUDOLPH Millan - Last Filed: 02/12/22 02:27> Source: old records reviewed and nursing notes reviewed <RUDOLPH Millan - Last Filed: 02/12/22 02:27> Medical History: Medical History Asthma Chronic hepatitis C Dementia Diabetic nephropathy Fatty liver GERD (gastroesophageal reflux disease) Hypercholesterolemia Hypertension Obesity (BMI 30-39.9) Peripheral vascular disease Polysubstance abuse Type 2 diabetes mellitus with hyperglycemia Uterine prolapse <RUDOLPH Millan - Last Filed: 02/12/22 02:27> Surgical History: Surgical History History of appendectomy History of cholecystectomy History of ectopic History of tonsillectomy <RUDOLPH Millan - Last Filed: 02/12/22 02:27> Family History Family History: Family History Father Diabetes Hypertension Mother Hypertension Diabetes CVD (cardiovascular disease) CAD (coronary artery disease) Maternal Aunt Myocardial infarction Maternal Uncle Myocardial infarction <RUDOLPH Millan - Last Filed: 02/12/22 02:27> Social History Social History: Social History Household Members: Significant Other Housing: House Do you presently have visiting nurse or other home services: No Unable to assess alcohol history related to: Unknown Alcohol intake: never Patient Tobacco Use Status: Never used Tobacco e-Cigarette/Vaping Use: Never Used Second Hand Smoke Exposure: No Advance Directives: No Advance Directives Information Provided: Yes service: No Sexual orientation: Straight/Heterosexual Cognitive needs: Yes Hearing needs: No Vision needs: No <RUDOLPH Millan - Last Filed: 02/12/22 02:27> Physical Exam ED Vital Signs: Vital Signs - 24 hr 02/12/22 20:12 02/13/22 06:44 Temperature 98.7 F 98.1 F Pulse Rate 74 59 Respiratory Rate 18 18 Blood Pressure 130/74 116/71 Pulse Oximetry 96 94 BMI result Body Mass Index 36.6 Vital signs stable <RUDOLPH Millan - Last Filed: 02/12/22 02:27> Vital Signs - 24 hr 02/12/22 20:12 02/13/22 06:44 Temperature 98.7 F 98.1 F Pulse Rate 74 59 Respiratory Rate 18 18 Blood Pressure 130/74 116/71 Pulse Oximetry 96 94 BMI result Body Mass Index 36.6 <RUDOLPH Hilario - Last Filed: 02/12/22 13:19> Vital Signs - 24 hr 02/12/22 20:12 02/13/22 06:44 Temperature 98.7 F 98.1 F Pulse Rate 74 59 Respiratory Rate 18 18 Blood Pressure 130/74 116/71 Pulse Oximetry 96 94 BMI result Body Mass Index 36.6 <RUDOLPH Whiting - Last Filed: 02/13/22 08:39> Appearance: Patient awake, alert, moving all extremities. She is not alert to person, place time or situation. Appears to be in acute manic phase. No acute distress.? Head: Normocephalic, atraumatic, no step-offs or deformities Eyes: Pupils equal, round and reactive to light.? ENT: Pharynx normal.? Neck: Normal inspection.? Neck supple.? CVS: Normal heart rate and rhythm.? Pulses normal.? Respiratory: No respiratory distress.? Breath sounds normal.? Abdomen: Soft and nontender.? Skin: Skin warm and dry.? Normal skin color.? Normal skin turgor.? Extremities: No lower extremity edema.? No calf ttp. 5/5 strength to bilateral upper and lower extremities Back: No midline tenderness, no C-spine tenderness, full range of motion, no CVA tenderness bilaterally Neuro: Awake, alert, moving all extremities. Not alert to person, place time or situation. Appears to be manic at this time. No motor deficit.? No sensory deficit. CN 2-12 intact circumferential conversation noted <RUDOLPH Millan Last Filed: 02/12/22 02:27> Course Reevaluation(s) Reevaluation #1: Patient's CBC appears to be at baseline. Chemistry appears to be around patient's baseline with elevated transaminases and alk-phos slightly elevated. No pain to palpation of abdomen. Patient is noted to have a UTI. Will treat with Ceftin 250 mg p.o. b.i.d. x7 days. Patient's urine tox positive for fentanyl all, benzodiazepines. COVID positive. At this time patient will be placed in physician observation to allow more time to be evaluated by the behavioral health team. At time observation was started patient common cooperative with no acute distress. Will continue to monitor. <RUDOLPH Millan Last Filed: 02/12/22 02:27> Patient's CBC appears to be at baseline. Chemistry appears to be around patient's baseline with elevated transaminases and alk-phos slightly elevated. No pain to palpation of abdomen. Patient is noted to have a UTI. Will treat with Ceftin 250 mg p.o. b.i.d. x7 days. Patient's urine tox positive for fentanyl all, benzodiazepines. COVID negative. At this time patient will be placed in physician observation to allow more time to be evaluated by the behavioral health team. At time observation was started patient common cooperative with no acute distress. Will continue to monitor. <RUDOLPH Hilario - Last Filed: 02/12/22 13:19> Time: 20:58 <RUDOLPH Millan Last Filed: 02/12/22 02:27> Reevaluation #2: Physician observation continued. Patient is being treated for UTI. She is due to be evaluated by the care team. No acute overnight events. Will continue to monitor. <RUDOLPH Hilario Last Filed: 02/12/22 13:19> Time: 08:22 <RUDOLPH Hilario - Last Filed: 02/12/22 13:19> Time: 08:36 <RUDOLPH Whiting - Last Filed: 02/13/22 08:39> Additional Reevaluation(s): Physician observation continues, patient has Cefuroxime ordered for today for her UTI. Nursing tells me patient was calm and appropriate last night. Patient resting comfortably, respirations even and regular, vital signs have been stable, no apparent distress. Question if this patient's UTI was exacerbating her psych history or dementia. Care team will evaluate this patient today to see if she is appropriate for Behavioral Health for psych eval today. Will continue to monitor Perla Ornelas PA-C <RUDOLPH Whiting - Last Filed: 02/13/22 08:39> Medical Decision Making MDM Narrative Medical decision making narrative: 1934 61-year-old female presents with acute kailash x2 weeks. Thinking she is in [place] in [facility]. Physical examination significant for 61-year-old female awake, alert, with circumferential conversations, who appears to be in an acute manic phase. Plan at this time is medical clearance and evaluation by the behavioral health <RUDOLPH Millan - Last Filed: 02/12/22 02:27> Medical Records Medical records reviewed: Yes I reviewed the patient's medical records. <RUDOLPH Millan - Last Filed: 02/12/22 02:27> Lab Data Lab results reviewed: Yes I reviewed the patient's lab results. <RUDOLPH Millan - Last Filed: 02/12/22 02:27> Result diagrams: : 02/11/22 20:03 02/11/22 20:03 <RUDOLPH Millan - Last Filed: 02/12/22 02:27> Labs: Lab Results 02/11/22 02/11/22 02/11/22 Range/Units 19:13 19:14 19:14 WBC (4.8-10.8) X10*3/uL RBC (4.20-5.50) X10*6/uL Hgb (12.0-16.0) g/dl Hct (37.0-47.0) % MCV (80.0-98.0) fL MCH (27.0-33.0) pg MCHC (31.0-35.0) g/dl RDW (11.0-16.0) % Plt Count MPV Immature Gran % (Auto) (0.0-0.4) % Neut % (Auto) (45-73) % Lymph % (Auto) (20-40) % [place] % (Auto) (2-11) % Eos % (Auto) (0-4) % Baso % (Auto) (0-2) % Lymph # (Auto) (1.2-4.9) X10*3/uL [place] # (Auto) (0.1-1.2) X10*3/uL Eos # (Auto) (0.0-0.4) X10*3/uL Baso # (Auto) (0.0-0.2) X10*3/uL Abs Immat Gran (auto) (0.00-0.03) X10*3/uL Absolute Neuts (auto) (2.0-8.3) x10*3/uL Absolute Nucleated RBC (0.0-0.012) X10*3/uL Nucleated RBC % (auto) (0.0-0.2) /100WBC Smear Tech's Comments Sodium (135-145) mmol/L Potassium (3.3-5.1) mmol/L Chloride (96-108) mmol/L Carbon Dioxide (22-29) mmol/L Anion Gap (12-20) BUN (9-16) mg/dL Creatinine (0.5-1.4) mg/dL Estim Creat Clear Calc Estimated GFR Random Glucose (60-115) mg/dL Calcium (8.4-10.2) mg/dL Total Bilirubin (0.0-1.0) mg/dL AST (5-31) U/L ALT (0-31) U/L Alkaline Phosphatase (39-117) U/L Total Protein (6.5-8.0) g/dL Albumin (3.5-5.0) g/dL Urine Color YELLOW Urine Appearance CLOUDY Urine pH 5.5 (5.0-8.0) Ur Specific Christoval 1.025 (1.005-1.025) Urine Protein 1+ H (NEG-TRACE) MG/DL Urine Glucose (UA) 100 H (NEG) MG/DL Urine Ketones NEG (NEG) MG/DL Urine Blood NEG (NEG) Urine Nitrite POS H (NEG) Ur Leukocyte Esterase 2+ H (NEG) Urine RBC 1-4 (0) /HPF Urine WBC 10-14 H (0-4) /HPF Ur Squamous Epith Cells TRACE /LPF Urine Bacteria 3+ /LPF Urine Opiates Screen Not Detected (Not Detect) Urine Fentanyl Screen POSITIVE H (Not Detect) Ur Barbiturates Screen Not Detected (Not Detect) Ur Phencyclidine Scrn Not Detected (Not Detect) Ur Amphetamines Screen Not Detected (Not Detect) U Benzodiazepines Scrn POSITIVE H (Not Detect) Urine Cocaine Screen Not Detected (Not Detect) U Marijuana (THC) Screen Not Detected (Not Detect) COVID-19 (ALDAIR) Negative (Negative) COVID-19 Clin Com See Note 02/11/22 02/11/22 Range/Units 20:03 20:03 WBC 5.9 (4.8-10.8) X10*3/uL RBC 4.60 (4.20-5.50) X10*6/uL Hgb 13.1 (12.0-16.0) g/dl Hct 40.1 (37.0-47.0) % MCV 87.2 (80.0-98.0) fL MCH 28.5 (27.0-33.0) pg MCHC 32.7 (31.0-35.0) g/dl RDW 14.3 (11.0-16.0) % Plt Count Not Reportable MPV Not Reportable Immature Gran % (Auto) 0.2 (0.0-0.4) % Neut % (Auto) 43.3 L (45-73) % Lymph % (Auto) 42.9 H (20-40) % [place] % (Auto) 8.4 (2-11) % Eos % (Auto) 4.3 H (0-4) % Baso % (Auto) 0.9 (0-2) % Lymph # (Auto) 2.5 (1.2-4.9) X10*3/uL [place] # (Auto) 0.5 (0.1-1.2) X10*3/uL Eos # (Auto) 0.3 (0.0-0.4) X10*3/uL Baso # (Auto) 0.1 (0.0-0.2) X10*3/uL Abs Immat Gran (auto) 0.01 (0.00-0.03) X10*3/uL Absolute Neuts (auto) 2.5 (2.0-8.3) x10*3/uL Absolute Nucleated RBC 0.000 (0.0-0.012) X10*3/uL Nucleated RBC % (auto) 0.0 (0.0-0.2) /100WBC Smear Tech's Comments VERIFIED Sodium 139 (135-145) mmol/L Potassium 4.8 (3.3-5.1) mmol/L Chloride 106 (96-108) mmol/L Carbon Dioxide 24 (22-29) mmol/L Anion Gap 14 (12-20) BUN 18 H (9-16) mg/dL Creatinine 1.02 (0.5-1.4) mg/dL Estim Creat Clear Calc 60.6 Estimated GFR 55 Random Glucose 179 H (60-115) mg/dL Calcium 9.7 (8.4-10.2) mg/dL Total Bilirubin 0.5 (0.0-1.0) mg/dL AST 73 H (5-31) U/L ALT 74 H (0-31) U/L Alkaline Phosphatase 133 H (39-117) U/L Total Protein 8.2 H (6.5-8.0) g/dL Albumin 4.1 (3.5-5.0) g/dL Urine Color Urine Appearance Urine pH (5.0-8.0) Ur Specific Christoval (1.005-1.025) Urine Protein (NEG-TRACE) MG/DL Urine Glucose (UA) (NEG) MG/DL Urine Ketones (NEG) MG/DL Urine Blood (NEG) Urine Nitrite (NEG) Ur Leukocyte Esterase (NEG) Urine RBC (0) /HPF Urine WBC (0-4) /HPF Ur Squamous Epith Cells /LPF Urine Bacteria /LPF Urine Opiates Screen (Not Detect) Urine Fentanyl Screen (Not Detect) Ur Barbiturates Screen (Not Detect) Ur Phencyclidine Scrn (Not Detect) Ur Amphetamines Screen (Not Detect) U Benzodiazepines Scrn (Not Detect) Urine Cocaine Screen (Not Detect) U Marijuana (THC) Screen (Not Detect) COVID-19 (ALDAIR) (Negative) COVID-19 Clin Com <RUDOLPH Millan - Last Filed: 02/12/22 02:27> Lab Results 02/11/22 02/11/22 02/11/22 Range/Units 19:13 19:14 19:14 WBC (4.8-10.8) X10*3/uL RBC (4.20-5.50) X10*6/uL Hgb (12.0-16.0) g/dl Hct (37.0-47.0) % MCV (80.0-98.0) fL MCH (27.0-33.0) pg MCHC (31.0-35.0) g/dl RDW (11.0-16.0) % Plt Count MPV Immature Gran % (Auto) (0.0-0.4) % Neut % (Auto) (45-73) % Lymph % (Auto) (20-40) % [place] % (Auto) (2-11) % Eos % (Auto) (0-4) % Baso % (Auto) (0-2) % Lymph # (Auto) (1.2-4.9) X10*3/uL [place] # (Auto) (0.1-1.2) X10*3/uL Eos # (Auto) (0.0-0.4) X10*3/uL Baso # (Auto) (0.0-0.2) X10*3/uL Abs Immat Gran (auto) (0.00-0.03) X10*3/uL Absolute Neuts (auto) (2.0-8.3) x10*3/uL Absolute Nucleated RBC (0.0-0.012) X10*3/uL Nucleated RBC % (auto) (0.0-0.2) /100WBC Smear Tech's Comments Sodium (135-145) mmol/L Potassium (3.3-5.1) mmol/L Chloride (96-108) mmol/L Carbon Dioxide (22-29) mmol/L Anion Gap (12-20) BUN (9-16) mg/dL Creatinine (0.5-1.4) mg/dL Estim Creat Clear Calc Estimated GFR Random Glucose (60-115) mg/dL Calcium (8.4-10.2) mg/dL Total Bilirubin (0.0-1.0) mg/dL AST (5-31) U/L ALT (0-31) U/L Alkaline Phosphatase (39-117) U/L Total Protein (6.5-8.0) g/dL Albumin (3.5-5.0) g/dL Urine Color YELLOW Urine Appearance CLOUDY Urine pH 5.5 (5.0-8.0) Ur Specific Christoval 1.025 (1.005-1.025) Urine Protein 1+ H (NEG-TRACE) MG/DL Urine Glucose (UA) 100 H (NEG) MG/DL Urine Ketones NEG (NEG) MG/DL Urine Blood NEG (NEG) Urine Nitrite POS H (NEG) Ur Leukocyte Esterase 2+ H (NEG) Urine RBC 1-4 (0) /HPF Urine WBC 10-14 H (0-4) /HPF Ur Squamous Epith Cells TRACE /LPF Urine Bacteria 3+ /LPF Urine Opiates Screen Not Detected (Not Detect) Urine Fentanyl Screen POSITIVE H (Not Detect) Ur Barbiturates Screen Not Detected (Not Detect) Ur Phencyclidine Scrn Not Detected (Not Detect) Ur Amphetamines Screen Not Detected (Not Detect) U Benzodiazepines Scrn POSITIVE H (Not Detect) Urine Cocaine Screen Not Detected (Not Detect) U Marijuana (THC) Screen Not Detected (Not Detect) COVID-19 (ALDAIR) Negative (Negative) COVID-19 Clin Com See Note 02/11/22 02/11/22 Range/Units 20:03 20:03 WBC 5.9 (4.8-10.8) X10*3/uL RBC 4.60 (4.20-5.50) X10*6/uL Hgb 13.1 (12.0-16.0) g/dl Hct 40.1 (37.0-47.0) % MCV 87.2 (80.0-98.0) fL MCH 28.5 (27.0-33.0) pg MCHC 32.7 (31.0-35.0) g/dl RDW 14.3 (11.0-16.0) % Plt Count Not Reportable MPV Not Reportable Immature Gran % (Auto) 0.2 (0.0-0.4) % Neut % (Auto) 43.3 L (45-73) % Lymph % (Auto) 42.9 H (20-40) % [place] % (Auto) 8.4 (2-11) % Eos % (Auto) 4.3 H (0-4) % Baso % (Auto) 0.9 (0-2) % Lymph # (Auto) 2.5 (1.2-4.9) X10*3/uL [place] # (Auto) 0.5 (0.1-1.2) X10*3/uL Eos # (Auto) 0.3 (0.0-0.4) X10*3/uL Baso # (Auto) 0.1 (0.0-0.2) X10*3/uL Abs Immat Gran (auto) 0.01 (0.00-0.03) X10*3/uL Absolute Neuts (auto) 2.5 (2.0-8.3) x10*3/uL Absolute Nucleated RBC 0.000 (0.0-0.012) X10*3/uL Nucleated RBC % (auto) 0.0 (0.0-0.2) /100WBC Smear Tech's Comments VERIFIED Sodium 139 (135-145) mmol/L Potassium 4.8 (3.3-5.1) mmol/L Chloride 106 (96-108) mmol/L Carbon Dioxide 24 (22-29) mmol/L Anion Gap 14 (12-20) BUN 18 H (9-16) mg/dL Creatinine 1.02 (0.5-1.4) mg/dL Estim Creat Clear Calc 60.6 Estimated GFR 55 Random Glucose 179 H (60-115) mg/dL Calcium 9.7 (8.4-10.2) mg/dL Total Bilirubin 0.5 (0.0-1.0) mg/dL AST 73 H (5-31) U/L ALT 74 H (0-31) U/L Alkaline Phosphatase 133 H (39-117) U/L Total Protein 8.2 H (6.5-8.0) g/dL Albumin 4.1 (3.5-5.0) g/dL Urine Color Urine Appearance Urine pH (5.0-8.0) Ur Specific Christoval (1.005-1.025) Urine Protein (NEG-TRACE) MG/DL Urine Glucose (UA) (NEG) MG/DL Urine Ketones (NEG) MG/DL Urine Blood (NEG) Urine Nitrite (NEG) Ur Leukocyte Esterase (NEG) Urine RBC (0) /HPF Urine WBC (0-4) /HPF Ur Squamous Epith Cells /LPF Urine Bacteria /LPF Urine Opiates Screen (Not Detect) Urine Fentanyl Screen (Not Detect) Ur Barbiturates Screen (Not Detect) Ur Phencyclidine Scrn (Not Detect) Ur Amphetamines Screen (Not Detect) U Benzodiazepines Scrn (Not Detect) Urine Cocaine Screen (Not Detect) U Marijuana (THC) Screen (Not Detect) COVID-19 (ALDAIR) (Negative) COVID-19 Clin Com <RUDOLPH Hilario - Last Filed: 02/12/22 13:19> Lab Results 02/11/22 02/11/22 02/11/22 Range/Units 19:13 19:14 19:14 WBC (4.8-10.8) X10*3/uL RBC (4.20-5.50) X10*6/uL Hgb (12.0-16.0) g/dl Hct (37.0-47.0) % MCV (80.0-98.0) fL MCH (27.0-33.0) pg MCHC (31.0-35.0) g/dl RDW (11.0-16.0) % Plt Count MPV Immature Gran % (Auto) (0.0-0.4) % Neut % (Auto) (45-73) % Lymph % (Auto) (20-40) % [place] % (Auto) (2-11) % Eos % (Auto) (0-4) % Baso % (Auto) (0-2) % Lymph # (Auto) (1.2-4.9) X10*3/uL [place] # (Auto) (0.1-1.2) X10*3/uL Eos # (Auto) (0.0-0.4) X10*3/uL Baso # (Auto) (0.0-0.2) X10*3/uL Abs Immat Gran (auto) (0.00-0.03) X10*3/uL Absolute Neuts (auto) (2.0-8.3) x10*3/uL Absolute Nucleated RBC (0.0-0.012) X10*3/uL Nucleated RBC % (auto) (0.0-0.2) /100WBC Smear Tech's Comments Sodium (135-145) mmol/L Potassium (3.3-5.1) mmol/L Chloride (96-108) mmol/L Carbon Dioxide (22-29) mmol/L Anion Gap (12-20) BUN (9-16) mg/dL Creatinine (0.5-1.4) mg/dL Estim Creat Clear Calc Estimated GFR Random Glucose (60-115) mg/dL Calcium (8.4-10.2) mg/dL Total Bilirubin (0.0-1.0) mg/dL AST (5-31) U/L ALT (0-31) U/L Alkaline Phosphatase (39-117) U/L Total Protein (6.5-8.0) g/dL Albumin (3.5-5.0) g/dL Urine Color YELLOW Urine Appearance CLOUDY Urine pH 5.5 (5.0-8.0) Ur Specific Christoval 1.025 (1.005-1.025) Urine Protein 1+ H (NEG-TRACE) MG/DL Urine Glucose (UA) 100 H (NEG) MG/DL Urine Ketones NEG (NEG) MG/DL Urine Blood NEG (NEG) Urine Nitrite POS H (NEG) Ur Leukocyte Esterase 2+ H (NEG) Urine RBC 1-4 (0) /HPF Urine WBC 10-14 H (0-4) /HPF Ur Squamous Epith Cells TRACE /LPF Urine Bacteria 3+ /LPF Urine Opiates Screen Not Detected (Not Detect) Urine Fentanyl Screen POSITIVE H (Not Detect) Ur Barbiturates Screen Not Detected (Not Detect) Ur Phencyclidine Scrn Not Detected (Not Detect) Ur Amphetamines Screen Not Detected (Not Detect) U Benzodiazepines Scrn POSITIVE H (Not Detect) Urine Cocaine Screen Not Detected (Not Detect) U Marijuana (THC) Screen Not Detected (Not Detect) COVID-19 (ALDAIR) Negative (Negative) COVID-19 Clin Com See Note 02/11/22 02/11/22 Range/Units 20:03 20:03 WBC 5.9 (4.8-10.8) X10*3/uL RBC 4.60 (4.20-5.50) X10*6/uL Hgb 13.1 (12.0-16.0) g/dl Hct 40.1 (37.0-47.0) % MCV 87.2 (80.0-98.0) fL MCH 28.5 (27.0-33.0) pg MCHC 32.7 (31.0-35.0) g/dl RDW 14.3 (11.0-16.0) % Plt Count Not Reportable MPV Not Reportable Immature Gran % (Auto) 0.2 (0.0-0.4) % Neut % (Auto) 43.3 L (45-73) % Lymph % (Auto) 42.9 H (20-40) % [place] % (Auto) 8.4 (2-11) % Eos % (Auto) 4.3 H (0-4) % Baso % (Auto) 0.9 (0-2) % Lymph # (Auto) 2.5 (1.2-4.9) X10*3/uL [place] # (Auto) 0.5 (0.1-1.2) X10*3/uL Eos # (Auto) 0.3 (0.0-0.4) X10*3/uL Baso # (Auto) 0.1 (0.0-0.2) X10*3/uL Abs Immat Gran (auto) 0.01 (0.00-0.03) X10*3/uL Absolute Neuts (auto) 2.5 (2.0-8.3) x10*3/uL Absolute Nucleated RBC 0.000 (0.0-0.012) X10*3/uL Nucleated RBC % (auto) 0.0 (0.0-0.2) /100WBC Smear Tech's Comments VERIFIED Sodium 139 (135-145) mmol/L Potassium 4.8 (3.3-5.1) mmol/L Chloride 106 (96-108) mmol/L Carbon Dioxide 24 (22-29) mmol/L Anion Gap 14 (12-20) BUN 18 H (9-16) mg/dL Creatinine 1.02 (0.5-1.4) mg/dL Estim Creat Clear Calc 60.6 Estimated GFR 55 Random Glucose 179 H (60-115) mg/dL Calcium 9.7 (8.4-10.2) mg/dL Total Bilirubin 0.5 (0.0-1.0) mg/dL AST 73 H (5-31) U/L ALT 74 H (0-31) U/L Alkaline Phosphatase 133 H (39-117) U/L Total Protein 8.2 H (6.5-8.0) g/dL Albumin 4.1 (3.5-5.0) g/dL Urine Color Urine Appearance Urine pH (5.0-8.0) Ur Specific [place] (1.005-1.025) Urine Protein (NEG-TRACE) MG/DL Urine Glucose (UA) (NEG) MG/DL Urine Ketones (NEG) MG/DL Urine Blood (NEG) Urine Nitrite (NEG) Ur Leukocyte Esterase (NEG) Urine RBC (0) /HPF Urine WBC (0-4) /HPF Ur Squamous Epith Cells /LPF Urine Bacteria /LPF Urine Opiates Screen (Not Detect) Urine Fentanyl Screen (Not Detect) Ur Barbiturates Screen (Not Detect) Ur Phencyclidine Scrn (Not Detect) Ur Amphetamines Screen (Not Detect) U Benzodiazepines Scrn (Not Detect) Urine Cocaine Screen (Not Detect) U Marijuana (THC) Screen (Not Detect) COVID-19 (ALDAIR) (Negative) COVID-19 Clin Com <RUDOLPH Whiting - Last Filed: 02/13/22 08:39> Critical Care Time Critical Care Time Critical Care Time: No <RUDOLPH Millan Last Filed: 02/12/22 02:27> Discharge Plan Discharge Clinical Impression: UTI (urinary tract infection), Kailash, Hallucinations <RUDOLPH Millan Last Filed: 02/12/22 02:27> Transfer Details: If patient gets discharge please discharged on antibiotics for UTI <RUDOLPH Millan Last Filed: 02/12/22 02:27> If patient gets discharge please discharged on antibiotics for UTI <RUDOLPH Hilario Last Filed: 02/12/22 13:19> If patient gets discharge please discharged on antibiotics for UTI <RUDOLPH Whiting Last Filed: 02/13/22 08:39> Prescriptions: No Action darifenacin 7.5 mg tablet extended release 24 hr 7.5 mg PO DAILY Qty: 30 5RF (DME) Pull-ups large See Rx Instructions .Route .MEDSUPPLY Qty: 240 11RF Rx Instructions: As directed aspirin 81 mg tablet,delayed release (DR/EC) 81 mg PO DAILY 90 Days Qty: 90 3RF (DME) PULL UPS LArge See Rx Instructions .Route .MEDSUPPLY Qty: 240 0RF Rx Instructions: As directed (DME) blood-glucose meter [FreeStyle Lite Meter] Kit See Rx Instructions .ROUTE .MEDSUPPLY Qty: 1 0RF Rx Instructions: As directed check the BS QD meloxicam 15 mg tablet 15 mg PO DAILY Qty: 90 2RF gabapentin 300 mg capsule 300 mg PO BID Qty: 180 2RF cyclobenzaprine 5 mg tablet 5 mg PO TID PRN (Reason: for muscle spasm) Qty: 80 2RF Hold Instructions: dizziness (DME) Hand held Shower See Rx Instructions .Route .MEDSUPPLY Qty: 1 0RF Rx Instructions: As directed (DME) shower chair See Rx Instructions .Route .MEDSUPPLY Qty: 1 0RF Rx Instructions: As directed (DME) tub seat with back See Rx Instructions .Route .MEDSUPPLY Qty: 1 0RF Rx Instructions: As directed (DME) cane See Rx Instructions .Route .MEDSUPPLY Qty: 1 0RF Rx Instructions: As directed lisinopril 30 mg tablet 30 mg PO DAILY 0RF amlodipine 5 mg tablet 5 mg PO DAILY 0RF meclizine 25 mg tablet 25 mg PO DAILY 30 Days Qty: 90 1RF memantine 5 mg tablet 5 mg PO BID 30 Days Qty: 60 3RF clonazepam 1 mg tablet 1 mg PO BID 0RF benztropine 1 mg tablet 1 mg PO BID@0830,2100 0RF loxapine succinate 10 mg Capsule 10 mg PO BID 0RF propranolol 20 mg Tablet 20 mg PO TID 0RF Januvia 100 mg tablet 1 tab PO DAILY 0RF Myrbetriq 25 mg tablet extended release 24 hr 1 tab PO DAILY 0RF loxapine succinate 5 mg capsule 1 cap PO BEDTIME 0RF metformin 500 mg tablet extended release 24 hr 2 tab PO DAILY 0RF clonazepam 0.5 mg tablet 0.5 mg PO DAILY PRN (Reason: Anxiety) 0RF (DME) compress.stocking,knee,reg,lrg Misc See Rx Instructions .ROUTE .MEDSUPPLY Qty: 2 0RF Rx Instructions: As directed 20-30 mm HG senna 8.6 mg capsule 8.6 mg PO BEDTIME 0RF atorvastatin 20 mg tablet 20 mg PO DAILY 30 Days Qty: 30 4RF <RUDOLPH Millan - Last Filed: 02/12/22 02:27>
[2022-02-11 19:41] LABS: Appearance Urine CLOUDY; Color Urine YELLOW; Glucose Urine UA 100 MG/DL (NEG); Leukocyte Esterase Urine 2+ (NEG); Nitrite Urine POS (NEG); PH 5.5 (5.0-8.0); Specific Gravity - Urine 1.025 (1.005-1.025); Urine Blood NEG (NEG); Urine Ketones NEG (NEG); Urine Protein 1+ MG/DL (NEG-TRACE)
[2022-02-11 19:48] LABS: Amphetamine Screen Urine Not Detected (Not Detect); Barbiturates, Urine Not Detected (Not Detect); Benzodiazepines Screen Urine POSITIVE (Not Detect); Cannabinoid Screen Urine Not Detected (Not Detect); Cocaine Screen Urine Not Detected (Not Detect); Fentanyl, urine POSITIVE (Not Detect); Opiate Screen Urine Not Detected (Not Detect); Phencyclidine Screen Urine Not Detected (Not Detect)
[2022-02-11 19:48] LABS: COVID-19 Test Negative (Negative); IDNOW Serial# 16C4AD1C
[2022-02-11 20:02] LABS: Bacteria Urine 3+ /LPF; Squamous Epithelial Cell Urine TRACE /LPF
[2022-02-11 20:10] LABS: Basophils Absolute Auto 0.1 X10*3/uL (0.0-0.2); Basophils Percent Auto 0.9 % (0-2); Hematocrit 40.1 % (37.0-47.0); Hemoglobin 13.1 g/dl (12.0-16.0); Imm Gran Abs Auto 0.01 X10*3/uL (0.00-0.03); Imm Gran Pct Auto 0.2 % (0.0-0.4); Mean Corpuscular HGB Conc 32.7 g/dl (31.0-35.0); Mean Corpuscular Hemoglobin 28.5 pg (27.0-33.0); Mean Corpuscular Volume 87.2 fL (80.0-98.0); PLT CLUMP 1; Red Cell Distribution Width 14.3 % (11.0-16.0); SCAN SMEAR FLAG 1
[2022-02-11 20:12] LABS: Eosinophils Absolute Auto 0.3 X10*3/uL (0.0-0.4); Eosinophils Percent Auto 4.3 % (0-4); Lymphocytes Absolute Auto 2.5 X10*3/uL (1.2-4.9); Lymphocytes Percent Auto 42.9 % (20-40); Monocytes Absolute Auto 0.5 X10*3/uL (0.1-1.2); Monocytes Percent Auto 8.4 % (2-11); Neutrophils Absolute Auto 2.5 x10*3/uL (2.0-8.3); Neutrophils Percent Auto 43.3 % (45-73)
[2022-02-11 20:20] LABS: MANUAL DIFF FLAG SCAN
[2022-02-11 20:28] LABS: Alanine Aminotransferase 74 U/L (0-31); Albumin Level 4.1 g/dL (3.5-5.0); Alkaline Phosphatase 133 U/L (39-117); Anion Gap 14 (12-20); Aspartate Amino Transferase 73 U/L (5-31); Bilirubin Total 0.5 mg/dL (0.0-1.0); Blood Urea Nitrogen 18 mg/dL (9-16); Calcium 9.7 mg/dL (8.4-10.2); Carbon Dioxide 24 mmol/L (22-29); Chloride 106 mmol/L (96-108); Creatinine Clr Calc Pharmacy 60.6; Estimated Glomerular Filt Rate 55; Glucose Random 179 mg/dL (60-115); Potassium 4.8 mmol/L (3.3-5.1); Sodium 139 mmol/L (135-145); Total Protein 8.2 g/dL (6.5-8.0)
[2022-02-11 20:45] LABS: White Blood Count 5.9 X10*3/uL (4.8-10.8)
[2022-02-11 20:46] LABS: SLIDE REVIEW VERIFIED
[2022-02-12 00:13] VITALS: BP 125/83; PULSE 64; RESP 16; TEMP 36.6; O2SAT 94
--- NOTE | 2022-02-12 00:38 | MHC.CARE ---
Pt presents to [facility] due to pt endorsing command AH to kill self. Pt is positive for a UTI. Per family pt has a hx of dementia. She lives alone, however her daughter lives next door. She has a visiting nurse that dispenses her medications and family was just approved yesterday for more hours. Pt's daughter Shasta reports has been medication compliant. She reports within the last year pt has declined, however a few days ago she appeared delusional telling her daughter that people were in her house and stole her kitchen table. Pt reportedly has an underlined hx of mental health and her daughter reports now that she has dementia it has been hard for her and her sister to distinguish the two. She states my mom usually knows herself pretty well and when she needs to go to the hospital and needs to go in . Hx of IP admissions for AH and hearing/seeing her brother. Her last admission on was . Shasta states that she has had her therapist Joshua for decades and she knows my mom very well . She explained that Joshua called her and her sister to go check on pt because she was concerned. Upon arrival Shasta states she seemed manic. Pt struggles with the month January because many traumatic events such as the loss of her father and daughter being taken away in the month of January. Daughter reports she suspects there is more but doesn't open up about this stuff to her kids. Shasta states the fact that Joshua was concerned for pt was concerning because she knows her so well. Shasta states pt has a hx of AH commanding to kill herself but denies any attempts. CARE Team met with pt. Pt endorses visual hallucinations of her brother and dad. She also states when she arrived she was hearing voices to hurt herself but denies a plan. Pt denies current AH. Pt states her sleep is fair but at times disrupted due to the nightmares she is having. Pt's responses are at times delayed and she states I'm loosing track . She reports she doesn't typically hear voices but she did today. When ED provider met with pt, pt reported she was [facility] in [facility] . ?According to patient's patient has been altered for about 2 weeks, she has been reporting auditory and visual hallucinations throughout the past 2 weeks. ?She tells ED provider she was seeing family members and she was trying to touch them. ?She states they were talking amongst ?themselves. She also tells provider she is suicidal with a plan is to kill herself with a gun shot wound. ?Patient does not have firearms at home. Pt denies SI to this typewriter assembly and parts inspector, however appeared distracted by questions. Due to pt's UTI, plan is to follow up with her tomorrow to determine how pt presents and if she needs to be admitted/ meets criteria considering UTI. Shasta Jorge [phone] (Daughter) Joshua [place] [id number] [phone] Med Provider [place] [id number] [phone]
--- NOTE | 2022-02-12 05:58 | PC.NURSE ---
Patient slept through the night, no distress observed/reported, behavior confused at baseline but non concerning, med rec completed/pending provider's approval, patient is + for UTI, started on Ceftin 250 mg BID, received first dose last evening, medication compliant, patient was assessed by care team, per care team patient meets inpatient criteria yet due to UTI patient will be reassessed by care team in the morning, will continue to monitor.
--- NOTE | 2022-02-12 07:11 | PC.NURSE ---
patient appears to remain asleep at present respirations are even and unlabored patient appears in no distress
[2022-02-12 07:37] VITALS: BP 126/82; PULSE 85; RESP 20; TEMP 36.6; O2SAT 92
[2022-02-12] MEDS: Meclizine HCl 25 MG TABLET PO (11:03)
[2022-02-12] MEDS: Atorvastatin Calcium 20 MG TABLET PO (11:03)
[2022-02-12] MEDS: Aspirin Enteric Coated 81 MG TABLET.DR PO (11:04)
[2022-02-12] MEDS: amLODIPine Besylate 5 MG TABLET PO (11:04)
[2022-02-12] MEDS: Gabapentin 300 MG CAPSULE PO ×2 (11:05→20:14)
[2022-02-12] MEDS: clonazePAM 1 MG TABLET PO ×2 (11:05→20:14)
[2022-02-12] MEDS: Memantine HCl 5 MG TABLET PO ×2 (11:05→20:19)
[2022-02-12] MEDS: metFORMIN HCl ER 500 MG TAB.ER.24H 1000 MG PO ×2 (11:05→20:13)
[2022-02-12] MEDS: Propranolol HCL 20 MG TABLET PO ×3 (11:06→20:13)
[2022-02-12] MEDS: lisinopriL 10 MG TABLET 30 MG PO (11:07)
[2022-02-12] MEDS: SITagliptin Phosphate 100 MG TABLET PO (11:07)
[2022-02-12] MEDS: Mirabegron 25 MG TAB.ER.24H PO (14:56)
[2022-02-12 20:12] VITALS: BP 130/74; PULSE 74; RESP 18; TEMP 37.1; O2SAT 96
[2022-02-12] MEDS: NaPROXEN 500 MG TABLET PO (20:13)
[2022-02-12] MEDS: Sennosides 8.6 MG TABLET PO (20:14)
[2022-02-12] MEDS: Benztropine Mesylate 1 MG TABLET PO (20:14)
--- NOTE | 2022-02-13 05:54 | PC.NURSE ---
Patient slept through the night, no distress observed/reported, behavior confused at baseline but non concerning, medication compliant, patient is + for UTI, treated with Ceftin 250 mg BID, patient was assessed by care team, pending disposition, VSS, will continue to monitor.
[2022-02-13 06:44] VITALS: BP 116/71; PULSE 59; RESP 18; TEMP 36.7; O2SAT 94
--- NOTE | 2022-02-13 07:27 | PC.NURSE ---
patient appears to remain asleep at present, respirations are even and unlabored, patient appears in no distress
[2022-02-13] MEDS: Memantine HCl 5 MG TABLET PO ×2 (09:21→21:39)
[2022-02-13] MEDS: Meclizine HCl 25 MG TABLET PO (09:21)
[2022-02-13] MEDS: NaPROXEN 500 MG TABLET PO ×2 (09:21→21:02)
[2022-02-13] MEDS: SITagliptin Phosphate 100 MG TABLET PO (09:21)
[2022-02-13] MEDS: Benztropine Mesylate 1 MG TABLET PO (09:21)
[2022-02-13] MEDS: Mirabegron 25 MG TAB.ER.24H PO (09:21)
[2022-02-13] MEDS: lisinopriL 10 MG TABLET 30 MG PO (09:21)
[2022-02-13] MEDS: Gabapentin 300 MG CAPSULE PO (09:21)
[2022-02-13] MEDS: Atorvastatin Calcium 20 MG TABLET PO (09:21)
[2022-02-13] MEDS: metFORMIN HCl ER 500 MG TAB.ER.24H 1000 MG PO ×2 (09:21→21:39)
[2022-02-13] MEDS: clonazePAM 1 MG TABLET PO (09:22)
[2022-02-13] MEDS: Aspirin Enteric Coated 81 MG TABLET.DR PO (09:22)
[2022-02-13] MEDS: Propranolol HCL 20 MG TABLET PO ×3 (09:22→21:01)
[2022-02-13] MEDS: amLODIPine Besylate 5 MG TABLET PO (09:22)
[2022-02-13 12:51] VITALS: BP 105/60; PULSE 66; TEMP 36.9; O2SAT 92
--- NOTE | 2022-02-13 16:07 | P.CNPS_ITS ---
History of Present Illness Date of Service: 02/13/2022 Chief Complaint: crisis eval Reason for Consult: Increase psychosis, confusion Discussed with referring provider: Yes Sources of Information: patient interviewed, chart reviewed and crisis/core team assessment reviewed HPI Narrative: Mrs. Najera is a 61 year-old woman with hx of Bipolar, AH at baseline. Most recently, question of underlying cognitive impairment. [place] via [place] [facility] due to pt presenting as increasingly more confused, reporting CAH, reporting seeing people others can't see. Utox negative. CBC wnl, except for slightly elevated Neutrophils % and Lymphocites. CMP- slightly elevated BUN, A1C elevated at 7.5%, LFT mildly elevated (AST 73, ALT 74, Al Phos- elevated 133). Urine Analysis completed- which showed +leukocytes, +WBC, +proteinuria/glucouria, no culture ordered. Pt started on ceftin. Today- pt cooperative. She reports she does not remember how she got here. She knows this is a hospital but states does not remember the name. She does not know the month. She does know the year. She reports hearing voices most of the time, at times telling her to hurt herself. She reports she does not know who called ambulance. She states she was seeing people when asked if others could see them- pt states she does not know. She denies intent or plan to hurt herself. Pt known to this property underwriter through one previous inpatient admission on fidel floor back in 10/2021- when pt also presented with some problems with orientation. Her attention is fairly intact, less likely acute delirium but some degree of confusion. Pt with underlying cognitive impairment and prone to delirium. Past medication trials: pt has been on multiple medication, but loxapine has been most effective. PSYCH HX: pt known to have AH at baseline Past Psychiatric History: Pt has a long history of Bipolar Disorder, PTSD and record reflects history of Dissociative Identity Disorder. She has services from [facility] and has been seen there outpatient for at least 8 years per pt. Pt has a long list of medications to which she is either allergic or had adverse reaction. Medical Evaluation Reviewed: Yes [facility] Medical History Asthma Chronic hepatitis C Dementia Diabetic nephropathy Fatty liver GERD (gastroesophageal reflux disease) Hypercholesterolemia Hypertension Obesity (BMI 30-39.9) Peripheral vascular disease Polysubstance abuse Type 2 diabetes mellitus with hyperglycemia Uterine prolapse Surgical History History of appendectomy History of cholecystectomy History of ectopic History of tonsillectomy Family History: pt reports she lives with memo?e of 30 yrs daughter- dara parents Trauma History: unknown Diagnostics Vital Signs (24Hr): Vital Signs - 24 hr 02/12/22 20:12 02/13/22 06:44 02/13/22 12:51 Temperature 98.7 F 98.1 F 98.4 F Pulse Rate 74 59 66 Respiratory Rate 18 18 Blood Pressure 130/74 116/71 105/60 Pulse Oximetry 96 94 92 BMI result Body Mass Index 36.6 Labs Results: 02/11/22 20:03 02/11/22 20:03 Labs: Laboratory Results - last 48 hr 02/11/22 02/11/22 02/11/22 19:13 19:14 19:14 WBC RBC Hgb Hct MCV MCH MCHC RDW Plt Count MPV Immature Gran % (Auto) Neut % (Auto) Lymph % (Auto) Hartley % (Auto) Eos % (Auto) Baso % (Auto) Lymph # (Auto) Hartley # (Auto) Eos # (Auto) Baso # (Auto) Abs Immat Gran (auto) Absolute Neuts (auto) Absolute Nucleated RBC Nucleated RBC % (auto) Smear Tech's Comments Sodium Potassium Chloride Carbon Dioxide Anion Gap BUN Creatinine Estim Creat Clear Calc Estimated GFR Random Glucose Calcium Total Bilirubin AST ALT Alkaline Phosphatase Total Protein Albumin Urine Color YELLOW Urine Appearance CLOUDY Urine pH 5.5 Ur Specific [place] 1.025 Urine Protein 1+ H Urine Glucose (UA) 100 H Urine Ketones NEG Urine Blood NEG Urine Nitrite POS H Ur Leukocyte Esterase 2+ H Urine RBC 1-4 Urine WBC 10-14 H Ur Squamous Epith Cells TRACE Urine Bacteria 3+ Urine Opiates Screen Not Detected Urine Fentanyl Screen POSITIVE H Ur Barbiturates Screen Not Detected Ur Phencyclidine Scrn Not Detected Ur Amphetamines Screen Not Detected U Benzodiazepines Scrn POSITIVE H Urine Cocaine Screen Not Detected U Marijuana (THC) Screen Not Detected COVID-19 (ALDAIR) Negative COVID-19 Clin Com See Note 02/11/22 02/11/22 20:03 20:03 WBC 5.9 RBC 4.60 Hgb 13.1 Hct 40.1 MCV 87.2 MCH 28.5 MCHC 32.7 RDW 14.3 Plt Count Not Reportable MPV Not Reportable Immature Gran % (Auto) 0.2 Neut % (Auto) 43.3 L Lymph % (Auto) 42.9 H Hartley % (Auto) 8.4 Eos % (Auto) 4.3 H Baso % (Auto) 0.9 Lymph # (Auto) 2.5 Hartley # (Auto) 0.5 Eos # (Auto) 0.3 Baso # (Auto) 0.1 Abs Immat Gran (auto) 0.01 Absolute Neuts (auto) 2.5 Absolute Nucleated RBC 0.000 Nucleated RBC % (auto) 0.0 Smear Tech's Comments VERIFIED Sodium 139 Potassium 4.8 Chloride 106 Carbon Dioxide 24 Anion Gap 14 BUN 18 H Creatinine 1.02 Estim Creat Clear Calc 60.6 Estimated GFR 55 Random Glucose 179 H Calcium 9.7 Total Bilirubin 0.5 AST 73 H ALT 74 H Alkaline Phosphatase 133 H Total Protein 8.2 H Albumin 4.1 Urine Color Urine Appearance Urine pH Ur Specific [place] Urine Protein Urine Glucose (UA) Urine Ketones Urine Blood Urine Nitrite Ur Leukocyte Esterase Urine RBC Urine WBC Ur Squamous Epith Cells Urine Bacteria Urine Opiates Screen Urine Fentanyl Screen Ur Barbiturates Screen Ur Phencyclidine Scrn Ur Amphetamines Screen U Benzodiazepines Scrn Urine Cocaine Screen U Marijuana (THC) Screen COVID-19 (ALDAIR) COVID-19 Clin Com Mental Status Exam Mental Status Exam Narrative: Appearance: wearing hospital gown, in NAD Behavior: cooperative Psychomotor: no agitation or retardation noted TP: derailment at times TC: hearing voices, no suicidal at the moment. Mood: confused Affect: congruent AH/VH: positive SI: denies HI: denies Delusions: none Insight/judgment: poor x 3. Memory/cog: alert, fluctuating levels of orientation. She is oriented to year, not month, does not remember name of hospital, nor fully oriented to situation. Level of Consciousness:?Awake and Alert Patient Behavior:?Appropriate, Talkative and Cooperative Behavior Comments: befuddled at times Mood Description:?Appropriate Affect Description:?Appropriate Patient Cognition Impaired:?Yes Ability to Follow Directions:?Good (Simple instructions) Speech Pattern:?Clear, Spontaneous Speech and Long Pauses Medications Medications Current Medications Amlodipine Besylate (Amlodipine Besylate 5 Mg Tablet) 5 mg PO DAILY [facility]; Protocol Last Admin: 02/13/22 09:22 Dose: 5 mg Documented by: Aspirin (Aspirin Enteric Coated 81 Mg Tablet.) 81 mg PO DAILY [facility] Last Admin: 02/13/22 09:22 Dose: 81 mg Documented by: Atorvastatin Calcium (Atorvastatin Calcium 20 Mg Tablet) 20 mg PO DAILY [facility] Last Admin: 02/13/22 09:21 Dose: 20 mg Documented by: Benztropine Mesylate (Benztropine Mesylate 0.5 Mg Tablet) 0.5 mg PO BID@0830,2100 [facility] Cefuroxime Axetil (Cefuroxime Axetil 250 Mg Tablet) 250 mg PO BID [facility] Last Admin: 02/13/22 09:21 Dose: 250 mg Documented by: Clonazepam (Clonazepam 1 Mg Tablet) 1 mg PO DAILY PRN PRN Reason: Anxiety Clonazepam (Clonazepam 0.5 Mg Tablet) 0.5 mg PO BID [facility] Cyclobenzaprine HCl (Cyclobenzaprine Hcl 5 Mg Tablet) 5 mg PO TID PRN PRN Reason: for muscle spasm Gabapentin (Gabapentin 100 Mg Capsule) 100 mg PO BID [facility] Lisinopril (Lisinopril 10 Mg Tablet) 30 mg PO DAILY [facility]; Protocol Last Admin: 02/13/22 09:21 Dose: 30 mg Documented by: Meclizine HCl (Meclizine Hcl 25 Mg Tablet) 25 mg PO DAILY PRN PRN Reason: vertigo Memantine (Memantine Hcl 5 Mg Tablet) 5 mg PO BID [facility] Last Admin: 02/13/22 09:21 Dose: 5 mg Documented by: Metformin HCl (Metformin Hcl Er 500 Mg Tab.Er.24h) 1,000 mg PO BID [facility] Last Admin: 02/13/22 09:21 Dose: 1,000 mg Documented by: Mirabegron (Mirabegron 25 Mg Tab.Er.24h) 25 mg PO DAILY [facility] Last Admin: 02/13/22 09:21 Dose: 25 mg Documented by: Naproxen (Naproxen 500 Mg Tablet) 500 mg PO BID [facility] Last Admin: 02/13/22 09:21 Dose: 500 mg Documented by: Non-Formulary Medication (Darifenacin) 7.5 mg PO DAILY [facility] Non-Formulary Medication (Loxapine Succinate) 1 cap PO BEDTIME [facility] Non-Formulary Medication (Loxapine Succinate) 10 mg PO BID [facility] Promethazine HCl (Promethazine Hcl 25 Mg Tablet) 25 mg PO TID PRN PRN Reason: Allergic Symptoms Propranolol HCl (Propranolol Hcl 20 Mg Tablet) 20 mg PO TID [facility]; Protocol Last Admin: 02/13/22 16:04 Dose: 20 mg Documented by: Senna (Sennosides 8.6 Mg Tablet) 8.6 mg PO BEDTIME [facility] Last Admin: 02/12/22 20:14 Dose: 8.6 mg Documented by: Sitagliptin Phosphate (Sitagliptin Phosphate 100 Mg Tablet) 100 mg PO DAILY [facility] Last Admin: 02/13/22 09:21 Dose: 100 mg Documented by: Allergies Allergies Allergy/AdvReac Type Severity Reaction Status Date / Time haloperidol [HALOPERIDOL] Allergy Intermediate SWELLING Verified 01/12/22 14:29 carbamazepine [From Tegretol] Allergy Mild RASH, Verified 01/12/22 14:29 TREMORS lithium [[place]] Allergy Mild RASH, Verified 01/12/22 14:29 CRAWLING OUT OF SKIN olanzapine [From Zyprexa] Allergy Mild RICHARD Verified 01/12/22 14:29 quetiapine [From Seroquel] Allergy Mild SWELLING Verified 01/12/22 14:29 WHOLE BODY, RICHARD topiramate [From TOPAMAX] Allergy Unknown RICHARD, SI Verified 01/12/22 14:29 trazodone [TRAZODONE] Allergy Unknown SYNCOPE Verified 01/12/22 14:29 aripiprazole [From ABILIFY] AdvReac Severe EXTREME SI Verified 01/12/22 14:29 lamotrigine [From Lamictal] AdvReac Mild RICHARD Verified 01/12/22 14:29 modafinil [From Provigil] AdvReac Mild RICHARD Verified 01/12/22 14:29 ALL ANTI DEPRESSENTS Allergy Unknown I GO Uncoded 01/12/22 14:29 MANIC All anti-depressants Allergy Unknown manic, rash Uncoded 01/12/22 14:29 From GEODON Allergy Unknown LETHARGY Uncoded 01/12/22 14:29 From WELLBUTRIN AdvReac Unknown AGITATION, Uncoded 01/12/22 14:29 MAVIS Assessment & Plan Assessment & Plan (1) Schizoaffective disorder, bipolar type: Status: Acute Code(s): F25.0 - Schizoaffective disorder, bipolar type (2) Cognitive impairment: Status: Acute Code(s): R41.89 - Other symptoms and signs involving cognitive functions and awareness Plan Ms. Najera is a 61 year-old woman with hx of Bipolar, most recently suspect underlying cognitive/memory impairment, which makes her more prone to delirium. Although urinalysis showed +leukocites and +WBC, no culture was ordered. Pt back in 10/2021 presented with impairments in orientation, recall, executive funciton. Reviewing current medication regiment- pt with polypharmacy, multiple anticholinergic agents , as well as fairly high dose of benzodiazepine which can contribute to more acute/subacute mental status changes. At this point, pt's attention is fairly intact, less suspicious of acute delirum but instead subacute with possible exacerbation of underlying condition. PLAN: 1. recommend lowering clonazepam from 1mg po TID to 0.5mg po BID and 1mg po daily prn anxiety. lower cogentin (already on meclizine, and myrabegron). continue loxapine. 2. complete urine culture. 3. May benefit from inpatient psych for further stabilization, containment and safety. 4. assess pt's ability to care for self and live on her own once psych symptoms more stable. 5. obtain collateral information I spent __25____ minutes with the patient and/or on the patient floor today, greater than?50% of which was spent counseling/coordinating care.
[2022-02-13 18:11] LABS: Alanine Aminotransferase 69 U/L (0-31); Albumin Level 3.8 g/dL (3.5-5.0); Alkaline Phosphatase 97 U/L (39-117); Anion Gap 16 (12-20); Aspartate Amino Transferase 66 U/L (5-31); Bilirubin Total 0.4 mg/dL (0.0-1.0); Blood Urea Nitrogen 21 mg/dL (9-16); Carbon Dioxide 23 mmol/L (22-29); Chloride 106 mmol/L (96-108); Creatinine Clr Calc Pharmacy 61.8; Estimated Glomerular Filt Rate 56; Glucose Random 190 mg/dL (60-115); Sodium 140 mmol/L (135-145)
[2022-02-13 18:28] LABS: Gamma Glutamyl Transpeptidase 142 U/L (7-33)
[2022-02-13 18:38] LABS: TSH reflex Free T4 0.77 uIU/mL (0.32-4.0)
[2022-02-13 20:48] VITALS: BP 142/92; PULSE 73; RESP 18; TEMP 36.3; O2SAT 95
[2022-02-13] MEDS: Sennosides 8.6 MG TABLET PO (21:01)
[2022-02-13] MEDS: clonazePAM 0.5 MG TABLET PO (21:01)
[2022-02-13] MEDS: Gabapentin 100 MG CAPSULE PO (21:02)
[2022-02-13] MEDS: Benztropine Mesylate 0.5 MG TABLET PO (21:02)
--- NOTE | 2022-02-13 22:41 | PC.ADMIT ---
Pt is a 61 year old female admitted on M5 from [facility] ED for hallucinations and vague suicidal ideation. Pt is alert & oriented x3, calm and cooperative. Pt is pleasant, reports anxiety and depression that worsens at night time. She reports having night tamayo related to previous trauma and periods of dissociation. Pt reports occasional thoughts of steeping in front of traffic to get killed. pt reports feels safe on the unit .Pt reports chronic back pain 5. Pt on antibiotics for UTI . ' ,.
[2022-02-14 08:17] VITALS: BP 122/85; PULSE 69; RESP 18; TEMP 36.8; O2SAT 92
[2022-02-14] MEDS: Memantine HCl 5 MG TABLET PO ×2 (08:18→21:56)
[2022-02-14] MEDS: amLODIPine Besylate 5 MG TABLET PO (08:18)
[2022-02-14] MEDS: lisinopriL 10 MG TABLET 30 MG PO (08:18)
[2022-02-14] MEDS: SITagliptin Phosphate 100 MG TABLET PO (08:19)
[2022-02-14] MEDS: NaPROXEN 500 MG TABLET PO ×2 (08:19→21:56)
[2022-02-14] MEDS: Gabapentin 100 MG CAPSULE PO ×2 (08:19→21:56)
[2022-02-14] MEDS: Atorvastatin Calcium 20 MG TABLET PO (08:19)
[2022-02-14] MEDS: Aspirin Enteric Coated 81 MG TABLET.DR PO (08:19)
[2022-02-14] MEDS: clonazePAM 0.5 MG TABLET PO ×2 (08:19→21:57)
[2022-02-14] MEDS: Propranolol HCL 20 MG TABLET PO ×3 (08:19→21:56)
[2022-02-14] MEDS: metFORMIN HCl ER 500 MG TAB.ER.24H 1000 MG PO ×2 (08:19→21:56)
[2022-02-14] MEDS: Benztropine Mesylate 0.5 MG TABLET PO ×2 (08:19→21:56)
[2022-02-14] MEDS: Mirabegron 25 MG TAB.ER.24H PO (08:19)
[2022-02-14 08:49] LABS: Alanine Aminotransferase 62 U/L (0-31); Albumin Level 3.8 g/dL (3.5-5.0); Alkaline Phosphatase 104 U/L (39-117); Anion Gap 13 (12-20); Aspartate Amino Transferase 54 U/L (5-31); Bilirubin Total 0.4 mg/dL (0.0-1.0); Blood Urea Nitrogen 21 mg/dL (9-16); Carbon Dioxide 25 mmol/L (22-29); Chloride 106 mmol/L (96-108); Cholesterol 136 mg/dL; Creatinine Clr Calc Pharmacy 71.9; Estimated Glomerular Filt Rate > 60; Glucose Fasting 186 mg/dL (60-99); HDL Cholesterol 37 mg/dL; LDL Cholesterol Calculated 72 mg/dl; Potassium 4.6 mmol/L (3.3-5.1); Sodium 139 mmol/L (135-145); Total Protein 7.6 g/dL (6.5-8.0); Triglycerides 135 mg/dL
--- NOTE | 2022-02-14 13:02 | P.HPPS_ITS ---
HPI Date of Service: 02/14/22 Chief Complaint: psychosis Sources of Information: patient interviewed and chart reviewed HPI Past Psychiatric History: Mrs. Najera is a 61 year-old woman with hx of Bipolar, AH at baseline. Most recently, question of underlying cognitive impairment. Pt sent via EMS to [facility] due to pt presenting as increasingly more confused, reporting CAH, reporting seeing people others can't see. Utox negative. CBC wnl, except for slightly elevated Neutrophils % and Lymphocites. CMP- slightly elevated BUN, A1C elevated at 7.5%, LFT mildly elevated (AST 73, ALT 74, Al Phos- elevated 133). Urine Analysis completed- which showed +leukocytes, +WBC, +proteinuria/glucouria, no culture ordered. Pt started on ceftin. Pt has a long history of Bipolar Disorder, PTSD and record reflects history of Dissociative Identity Disorder. She has services from [facility] and has been seen there outpatient for at least 8 years per pt. Pt has a long list of medications to which she is either allergic or had adverse reaction. she says she was feeling increasingly suicidal at home. She says she was feeling overwhelmed and confused. Increasingly anxious She was then brought to the hospital. She says she was hearing voices. Since on the unit he was saying she is feeling better. Medical Evaluation Reviewed: Yes [facility] Medical History Asthma Chronic hepatitis C Dementia Diabetic nephropathy Fatty liver GERD (gastroesophageal reflux disease) Hypercholesterolemia Hypertension Obesity (BMI 30-39.9) Peripheral vascular disease Polysubstance abuse Type 2 diabetes mellitus with hyperglycemia Uterine prolapse Surgical History History of appendectomy History of cholecystectomy History of ectopic History of tonsillectomy Family History: pt reports she lives with memo?e of 30 yrs daughter- dara parents Trauma History: unknown Diagnostics Vital Signs (24Hr): Vital Signs - 24 hr 02/13/22 20:48 02/14/22 08:17 Temperature 97.3 F 98.3 F Pulse Rate 73 69 Respiratory Rate 18 18 Blood Pressure 142/92 H 122/85 Pulse Oximetry 95 92 BMI result Body Mass Index 36.6 Labs Results: 02/11/22 20:03 02/14/22 07:35 Labs: Laboratory Results - last 48 hr 02/13/22 02/13/22 02/13/22 17:30 17:30 17:30 Sodium 140 Potassium 5.0 Chloride 106 Carbon Dioxide 23 Anion Gap 16 BUN 21 H Creatinine 1.00 Estim Creat Clear Calc 61.8 Estimated GFR 56 Random Glucose 190 H Fasting Glucose Calcium 10.0 Total Bilirubin 0.4 GGT 142 H AST 66 H ALT 69 H Alkaline Phosphatase 97 D Total Protein 8.0 Albumin 3.8 Triglycerides Cholesterol LDL Cholesterol, Calc HDL Cholesterol TSH 0.77 02/14/22 07:35 Sodium 139 Potassium 4.6 Chloride 106 Carbon Dioxide 25 Anion Gap 13 BUN 21 H Creatinine 0.86 Estim Creat Clear Calc 71.9 Estimated GFR > 60 Random Glucose Fasting Glucose 186 H Calcium 10.0 Total Bilirubin 0.4 GGT AST 54 H ALT 62 H Alkaline Phosphatase 104 Total Protein 7.6 Albumin 3.8 Triglycerides 135 Cholesterol 136 D LDL Cholesterol, Calc 72 HDL Cholesterol 37 TSH Meds/Allergies Meds Home Medications Medication Instructions Recorded Confirmed Type clonazepam 0.5 mg tablet 0.5 mg PO DAILY PRN tab 07/08/20 02/12/22 History loxapine succinate 10 mg capsule 10 mg PO BID 07/14/20 02/11/22 History propranolol 20 mg tablet 20 mg PO TID 07/14/20 02/11/22 History benztropine 1 mg tablet 1 mg PO BID@0830,2100 10/25/20 02/11/22 History clonazepam 1 mg tablet 1 mg PO BID 10/25/20 02/11/22 History sennosides 8.6 mg capsule (senna) 8.6 mg PO BEDTIME 11/13/21 02/11/22 History amlodipine 5 mg tablet 5 mg PO DAILY 12/09/21 02/11/22 History lisinopril 30 mg tablet 30 mg PO DAILY 12/09/21 02/11/22 History loxapine succinate 5 mg capsule 1 cap PO BEDTIME 02/11/22 02/11/22 History mirabegron 25 mg tablet,extended 1 tab PO DAILY 02/11/22 02/11/22 History release 24 hr (Myrbetriq) sitagliptin 100 mg tablet (Januvia) 1 tab PO DAILY 02/11/22 02/11/22 History metformin 500 mg tablet,extended 2 tab PO DAILY 02/12/22 02/12/22 History release 24 hr Allergies Allergies Allergy/AdvReac Type Severity Reaction Status Date / Time haloperidol [HALOPERIDOL] Allergy Intermediate SWELLING Verified 01/12/22 14:29 carbamazepine [From Tegretol] Allergy Mild RASH, Verified 01/12/22 14:29 TREMORS lithium [[place]] Allergy Mild RASH, Verified 01/12/22 14:29 CRAWLING OUT OF SKIN olanzapine [From Zyprexa] Allergy Mild RICHARD Verified 01/12/22 14:29 quetiapine [From Seroquel] Allergy Mild SWELLING Verified 01/12/22 14:29 WHOLE BODY, RICHARD topiramate [From TOPAMAX] Allergy Unknown RICHARD, SI Verified 01/12/22 14:29 trazodone [TRAZODONE] Allergy Unknown SYNCOPE Verified 01/12/22 14:29 aripiprazole [From ABILIFY] AdvReac Severe EXTREME SI Verified 01/12/22 14:29 lamotrigine [From Lamictal] AdvReac Mild RICHARD Verified 01/12/22 14:29 modafinil [From Provigil] AdvReac Mild RICHARD Verified 01/12/22 14:29 ALL ANTI DEPRESSENTS Allergy Unknown I GO Uncoded 01/12/22 14:29 MANIC All anti-depressants Allergy Unknown manic, rash Uncoded 01/12/22 14:29 From GEODON Allergy Unknown LETHARGY Uncoded 01/12/22 14:29 From WELLBUTRIN AdvReac Unknown AGITATION, Uncoded 01/12/22 14:29 MAVIS Mental Status Exam Mental Status Exam Patient Appearance: Appropriate Patient Orientation: Person and Place Level of Consciousness: Awake and Appropriate Patient Behavior: Appropriate, Dependent, Talkative, Anxious and Good Eye Contact Mood Description: Constricted, Depressed and Sad Affect Description: Depressed Ability to Follow Directions: Good Speech Pattern: Clear Memory Description: Immediate Impaired Hallucinations: Auditory Thought Process: Disoriented Thought Content: positive for Intact Depressive Symptoms: Increased Anxiety and Hopelessness Judgement: Fair Assessment & Plan Assessment & Plan (1) Cognitive impairment: Status: Acute Code(s): R41.89 - Other symptoms and signs involving cognitive functions and awareness (2) Schizoaffective disorder, bipolar type: Status: Acute Code(s): F25.0 - Schizoaffective disorder, bipolar type Plan Admit to inpatient psychiatry [facility] Minimize anticholinergics, antihistamines, benzodiazepines Group therapy Diagnostic clarification Disposition planning Continue treatment for UTI Patient educated on: diagnosis Reason for continued inpatient stay Substantial Risk for: harm to self, inability to function and med/psych decompensation
[2022-02-14 14:16] LABS: Appearance Urine CLEAR; Color Urine YELLOW; Glucose Urine UA NEG (NEG); Leukocyte Esterase Urine NEG (NEG); Nitrite Urine NEG (NEG); PH 5.5 (5.0-8.0); Specific Gravity - Urine 1.025 (1.005-1.025); Urine Blood NEG (NEG); Urine Ketones NEG (NEG); Urine Protein TRACE MG/DL (NEG-TRACE)
[2022-02-14 14:27] LABS: RBC Urine 0-2 /HPF (0); Squamous Epithelial Cell Urine 4+ /LPF; WBC Urine 0-2 /HPF (0-4)
[2022-02-14 17:10] VITALS: BP 137/84; PULSE 73; TEMP 37.1
[2022-02-14] MEDS: Sennosides 8.6 MG TABLET PO (21:57)
[2022-02-15 07:56] LABS: Glucose, Whole Blood 158 mg/dL (60-115)
[2022-02-15 08:30] VITALS: BP 102/61; PULSE 61; RESP 16; TEMP 36.6; O2SAT 94
[2022-02-15] MEDS: clonazePAM 0.5 MG TABLET PO ×2 (08:35→20:26)
[2022-02-15] MEDS: Aspirin Enteric Coated 81 MG TABLET.DR PO (08:35)
[2022-02-15] MEDS: NaPROXEN 500 MG TABLET PO ×2 (08:35→20:27)
[2022-02-15] MEDS: lisinopriL 10 MG TABLET 30 MG PO (08:36)
[2022-02-15] MEDS: Benztropine Mesylate 0.5 MG TABLET PO ×2 (08:36→20:28)
[2022-02-15] MEDS: Memantine HCl 5 MG TABLET PO ×2 (08:37→20:28)
[2022-02-15] MEDS: Gabapentin 100 MG CAPSULE PO ×2 (08:37→20:27)
[2022-02-15] MEDS: Atorvastatin Calcium 20 MG TABLET PO (08:38)
[2022-02-15] MEDS: amLODIPine Besylate 5 MG TABLET PO (08:38)
[2022-02-15] MEDS: SITagliptin Phosphate 100 MG TABLET PO (08:38)
[2022-02-15] MEDS: metFORMIN HCl ER 500 MG TAB.ER.24H 1000 MG PO ×2 (08:39→20:27)
[2022-02-15] MEDS: Propranolol HCL 20 MG TABLET PO ×3 (08:39→20:26)
--- NOTE | 2022-02-15 12:04 | HO.PSYCHPN ---
Subjective Subjective Date of Service: 02/15/22 Reason For Visit: psychosis Interim History: Patient seen and discussed. I feel I am ready to go home. Feels somewhat improved and clearer today however remains depressed and has SI with no intent of self harm on the unit. She is missing a couple of her medications that she had at home. They were in her belongings. Administered. (Loxapine). She reports she had hallucinations last night but not today. Mental Status Exam Mental Status Exam Narrative: Appearance: wearing hospital gown, in NAD Behavior: cooperative Psychomotor: no agitation or retardation noted TP: derailment at times TC: hearing voices, no suicidal at the moment. Mood: confused Affect: congruent AH/VH: positive SI: denies HI: denies Delusions: none Insight/judgment: poor x 3. Memory/cog: alert, fluctuating levels of orientation. She is oriented to year, not month, does not remember name of hospital, nor fully oriented to situation. Level of Consciousness:?Awake and Alert Patient Behavior:?Appropriate, Talkative and Cooperative Behavior Comments: befuddled at times Mood Description:?Appropriate Affect Description:?Appropriate Patient Cognition Impaired:?Yes Ability to Follow Directions:?Good (Simple instructions) Speech Pattern:?Clear, Spontaneous Speech and Long Pauses Diagnostics Vital Signs (24Hr): Vital Signs - 24 hr 02/14/22 17:10 02/15/22 08:30 Temperature 98.7 F 97.8 F Pulse Rate 73 61 Respiratory Rate 16 Blood Pressure 137/84 102/61 Pulse Oximetry 94 BMI result Body Mass Index 36.6 Labs Results: 02/11/22 20:03 02/14/22 07:35 Labs: Laboratory Results - last 48 hr 02/13/22 02/13/22 02/13/22 17:30 17:30 17:30 Sodium 140 Potassium 5.0 Chloride 106 Carbon Dioxide 23 Anion Gap 16 BUN 21 H Creatinine 1.00 Estim Creat Clear Calc 61.8 Estimated GFR 56 POC Glucose Random Glucose 190 H Fasting Glucose Calcium 10.0 Total Bilirubin 0.4 GGT 142 H AST 66 H ALT 69 H Alkaline Phosphatase 97 D Total Protein 8.0 Albumin 3.8 Triglycerides Cholesterol LDL Cholesterol, Calc HDL Cholesterol TSH 0.77 Urine Color Urine Appearance Urine pH Ur Specific [place] Urine Protein Urine Glucose (UA) Urine Ketones Urine Blood Urine Nitrite Ur Leukocyte Esterase Urine RBC Urine WBC Ur Squamous Epith Cells Urine Bacteria 02/14/22 02/14/22 02/15/22 07:35 14:00 07:51 Sodium 139 Potassium 4.6 Chloride 106 Carbon Dioxide 25 Anion Gap 13 BUN 21 H Creatinine 0.86 Estim Creat Clear Calc 71.9 Estimated GFR > 60 POC Glucose 158 H Random Glucose Fasting Glucose 186 H Calcium 10.0 Total Bilirubin 0.4 GGT AST 54 H ALT 62 H Alkaline Phosphatase 104 Total Protein 7.6 Albumin 3.8 Triglycerides 135 Cholesterol 136 D LDL Cholesterol, Calc 72 HDL Cholesterol 37 TSH Urine Color YELLOW Urine Appearance CLEAR Urine pH 5.5 Ur Specific [place] 1.025 Urine Protein TRACE Urine Glucose (UA) NEG Urine Ketones NEG Urine Blood NEG Urine Nitrite NEG Ur Leukocyte Esterase NEG Urine RBC 0-2 Urine WBC 0-2 Ur Squamous Epith Cells 4+ Urine Bacteria NONE Medications Medications Current Medications Acetaminophen (Acetaminophen 325 Mg Tablet) 650 mg PO Q6H PRN PRN Reason: Headache/Pain Mild Scale (1-3) Al Hydroxide/Mg Hydroxide (Magnesium Hydrox/Alum Hydrox 30 Ml Oral.Susp) 30 ml PO Q6H PRN PRN Reason: Heartburn/Nausea Amlodipine Besylate (Amlodipine Besylate 5 Mg Tablet) 5 mg PO DAILY [facility]; Protocol Last Admin: 02/15/22 08:38 Dose: 5 mg Documented by: Aspirin (Aspirin Enteric Coated 81 Mg Tablet.) 81 mg PO DAILY [facility] Last Admin: 02/15/22 08:35 Dose: 81 mg Documented by: Atorvastatin Calcium (Atorvastatin Calcium 20 Mg Tablet) 20 mg PO DAILY [facility] Last Admin: 02/15/22 08:38 Dose: 20 mg Documented by: Benztropine Mesylate (Benztropine Mesylate 0.5 Mg Tablet) 0.5 mg PO BID@0830,2100 [facility] Last Admin: 02/15/22 08:36 Dose: 0.5 mg Documented by: Cefuroxime Axetil (Cefuroxime Axetil 250 Mg Tablet) 250 mg PO BID [facility] Last Admin: 02/15/22 08:37 Dose: 250 mg Documented by: Clonazepam (Clonazepam 1 Mg Tablet) 1 mg PO DAILY PRN PRN Reason: Anxiety Clonazepam (Clonazepam 0.5 Mg Tablet) 0.5 mg PO BID [facility] Last Admin: 02/15/22 08:35 Dose: 0.5 mg Documented by: Cyclobenzaprine HCl (Cyclobenzaprine Hcl 5 Mg Tablet) 5 mg PO TID PRN PRN Reason: for muscle spasm Gabapentin (Gabapentin 100 Mg Capsule) 100 mg PO BID [facility] Last Admin: 02/15/22 08:37 Dose: 100 mg Documented by: Hydroxyzine HCl (Hydroxyzine Hcl 25 Mg Tablet) 25 mg PO BEDTIME PRN PRN Reason: Anxiety Lisinopril (Lisinopril 10 Mg Tablet) 30 mg PO DAILY [facility]; Protocol Last Admin: 02/15/22 08:36 Dose: 30 mg Documented by: Magnesium Hydroxide (Milk Of Magnesia 30 Ml Oral.Susp) 30 ml PO DAILY PRN PRN Reason: Constipation Meclizine HCl (Meclizine Hcl 25 Mg Tablet) 25 mg PO DAILY PRN PRN Reason: vertigo Memantine (Memantine Hcl 5 Mg Tablet) 5 mg PO BID [facility] Last Admin: 02/15/22 08:37 Dose: 5 mg Documented by: Metformin HCl (Metformin Hcl Er 500 Mg Tab.Er.24h) 1,000 mg PO BID [facility] Last Admin: 02/15/22 08:39 Dose: 1,000 mg Documented by: Naproxen (Naproxen 500 Mg Tablet) 500 mg PO BID [facility] Last Admin: 02/15/22 08:35 Dose: 500 mg Documented by: Pt Own Med (Darifenacin 7.5 Mg) 7.5 mg PO DAILY [facility] Last Admin: 02/15/22 09:50 Dose: 7.5 mg Documented by: Pt Own Med (Loxapine Succinate 5 Mg Capsule) 1 cap PO BEDTIME [facility] Last Admin: 02/14/22 23:06 Dose: Not Given Documented by: Pt Own Med (Loxapine Succinate 10 Mg Capsule) 10 mg PO BID [facility] Last Admin: 02/15/22 09:50 Dose: 10 mg Documented by: Promethazine HCl (Promethazine Hcl 25 Mg Tablet) 25 mg PO TID PRN PRN Reason: Allergic Symptoms Propranolol HCl (Propranolol Hcl 20 Mg Tablet) 20 mg PO TID [facility]; Protocol Last Admin: 02/15/22 08:39 Dose: 20 mg Documented by: Senna (Sennosides 8.6 Mg Tablet) 8.6 mg PO BEDTIME [facility] Last Admin: 02/14/22 21:57 Dose: 8.6 mg Documented by: Sitagliptin Phosphate (Sitagliptin Phosphate 100 Mg Tablet) 100 mg PO DAILY [facility] Last Admin: 02/15/22 08:38 Dose: 100 mg Documented by: Allergies Allergies Allergy/AdvReac Type Severity Reaction Status Date / Time haloperidol [HALOPERIDOL] Allergy Intermediate SWELLING Verified 01/12/22 14:29 carbamazepine [From Tegretol] Allergy Mild RASH, Verified 01/12/22 14:29 TREMORS lithium [[place]] Allergy Mild RASH, Verified 01/12/22 14:29 CRAWLING OUT OF SKIN olanzapine [From Zyprexa] Allergy Mild RICHARD Verified 01/12/22 14:29 quetiapine [From Seroquel] Allergy Mild SWELLING Verified 01/12/22 14:29 WHOLE BODY, RICHARD topiramate [From TOPAMAX] Allergy Unknown RICHARD, SI Verified 01/12/22 14:29 trazodone [TRAZODONE] Allergy Unknown SYNCOPE Verified 01/12/22 14:29 aripiprazole [From ABILIFY] AdvReac Severe EXTREME SI Verified 01/12/22 14:29 lamotrigine [From Lamictal] AdvReac Mild RICHARD Verified 01/12/22 14:29 modafinil [From Provigil] AdvReac Mild RICHARD Verified 01/12/22 14:29 ALL ANTI DEPRESSENTS Allergy Unknown I GO Uncoded 01/12/22 14:29 MANIC All anti-depressants Allergy Unknown manic, rash Uncoded 01/12/22 14:29 From GEODON Allergy Unknown LETHARGY Uncoded 01/12/22 14:29 From WELLBUTRIN AdvReac Unknown AGITATION, Uncoded 01/12/22 14:29 MAIVS Assessment & Plan Assessment & Plan (1) Cognitive impairment: Status: Acute Code(s): R41.89 - Other symptoms and signs involving cognitive functions and awareness (2) Schizoaffective disorder, bipolar type: Status: Acute Code(s): F25.0 - Schizoaffective disorder, bipolar type Plan Admit to inpatient psychiatry [facility] Minimize anticholinergics, antihistamines, benzodiazepines Group therapy Diagnostic clarification Disposition planning Continue treatment for UTI 02/15: Encourage out of bed. Continue treatment plan. I spent minutes with the patient and/or on the patient floor today, greater than?50% of which was spent counseling/coordinating care. Reason for contiued inpatient stay Substantial Risk for: harm to self, inability to function and med/psych decompensation
[2022-02-15 15:40] VITALS: BP 128/68; PULSE 66; RESP 16; TEMP 36.4; O2SAT 94
[2022-02-16 06:35] LABS: Glucose, Whole Blood 126 mg/dL (60-115)
[2022-02-16 08:20] VITALS: BP 110/67; PULSE 71; RESP 16; TEMP 36.5; O2SAT 93
[2022-02-16] MEDS: NaPROXEN 500 MG TABLET PO ×2 (08:25→20:43)
[2022-02-16] MEDS: Memantine HCl 5 MG TABLET PO ×2 (08:26→20:44)
[2022-02-16] MEDS: Aspirin Enteric Coated 81 MG TABLET.DR PO (08:26)
[2022-02-16] MEDS: lisinopriL 10 MG TABLET 30 MG PO (08:26)
[2022-02-16] MEDS: Propranolol HCL 20 MG TABLET PO ×3 (08:26→20:44)
[2022-02-16] MEDS: Benztropine Mesylate 0.5 MG TABLET PO ×2 (08:26→20:45)
[2022-02-16] MEDS: SITagliptin Phosphate 100 MG TABLET PO (08:26)
[2022-02-16] MEDS: amLODIPine Besylate 5 MG TABLET PO (08:26)
[2022-02-16] MEDS: Gabapentin 100 MG CAPSULE PO ×2 (08:26→20:43)
[2022-02-16] MEDS: Atorvastatin Calcium 20 MG TABLET PO (08:27)
[2022-02-16] MEDS: metFORMIN HCl ER 500 MG TAB.ER.24H 1000 MG PO ×2 (08:27→20:45)
[2022-02-16 08:36] LABS: Glucose, Whole Blood 144 mg/dL (60-115)
[2022-02-16] MEDS: clonazePAM 0.5 MG TABLET PO ×2 (08:44→20:46)
[2022-02-16] MEDS: Loperamide HCl 2 MG CAPSULE PO (10:30)
--- NOTE | 2022-02-16 12:19 | HO.PSYCHPN ---
Subjective Subjective Date of Service: 02/16/22 Reason For Visit: psychosis Interim History: Patient seen and discussed. She is depressed today. She also has diarrhea. No blood. Some nausea. No vomiting. Mild abdominal discomfort. It's rumbling. No fevers. Reports hallucinations last night but none today yet. Dioscussed primary team to collaborate with OP psychiatrist after the weekend for adjustments in medications. Wouldn't harm self while in the hospital. Review of Systems Review of Systems Constitutional : No Fever, No Chills ENT/Mouth : No Ear Pain, No Nasal Congestion, No sore throat Eyes: No Eye Pain, No Swelling, No Redness Cardiovascular : No Chest Pain, No SOB Respiratory : No Cough, No Sputum, No Dyspnea Gastrointestinal : No Nausea, No Vomiting, No Diarrhea, No Hematochezia, No Melena Genitourinary : No Dysuria, No Urinary Frequency, No Hematuria Musculoskeletal : No Myalgias Skin : No Skin Lesions, No rash Neuro : No Weakness, No Numbness, No Paresthesias, No Dizziness, No Headache Psych : No Anxiety, No Depression, positive SI, No HI, positive AH/VH All other systems reviewed and are negative Yes all other systems are reviewed and are negative Mental Status Exam Mental Status Exam Narrative: Appearance: wearing hospital gown, in NAD Behavior: cooperative Psychomotor: no agitation or retardation noted TP: derailment at times TC: hearing voices, no suicidal at the moment. Mood: depressde Affect: congruent AH/VH: positive SI: denies HI: denies Delusions: none Insight/judgment: poor x 3. Memory/cog: alert, She is oriented to year, place, situation. Level of Consciousness:?Awake and Alert Patient Behavior:?Appropriate, Talkative and Cooperative Behavior Comments:befuddled at times Mood Description:?Appropriate Affect Description:?Appropriate Patient Cognition Impaired:?Yes Ability to Follow Directions:?Good (Simple instructions) Speech Pattern:?Clear, Spontaneous Speech and Long Pauses Patient Appearance: Appropriate Patient Orientation: Person and Place Level of Consciousness: Awake and Appropriate Patient Behavior: Appropriate, Dependent, Talkative, Anxious and Good Eye Contact Mood Description: Constricted, Depressed and Sad Affect Description: Depressed Ability to Follow Directions: Good Speech Pattern: Clear Memory Description: Immediate Impaired Diagnostics Vital Signs (24Hr): Vital Signs - 24 hr 02/15/22 15:40 02/16/22 08:20 Temperature 97.6 F 97.7 F Pulse Rate 66 71 Respiratory Rate 16 16 Blood Pressure 128/68 110/67 Pulse Oximetry 94 93 BMI result Body Mass Index 36.6 Labs Results: 02/11/22 20:03 02/14/22 07:35 Labs: Laboratory Results - last 48 hr 02/14/22 02/15/22 02/16/22 14:00 07:51 06:29 POC Glucose 158 H 126 H Urine Color YELLOW Urine Appearance CLEAR Urine pH 5.5 Ur Specific [place] 1.025 Urine Protein TRACE Urine Glucose (UA) NEG Urine Ketones NEG Urine Blood NEG Urine Nitrite NEG Ur Leukocyte Esterase NEG Urine RBC 0-2 Urine WBC 0-2 Ur Squamous Epith Cells 4+ Urine Bacteria NONE 02/16/22 08:15 POC Glucose 144 H Urine Color Urine Appearance Urine pH Ur Specific [place] Urine Protein Urine Glucose (UA) Urine Ketones Urine Blood Urine Nitrite Ur Leukocyte Esterase Urine RBC Urine WBC Ur Squamous Epith Cells Urine Bacteria Medications Medications Current Medications Acetaminophen (Acetaminophen 325 Mg Tablet) 650 mg PO Q6H PRN PRN Reason: Headache/Pain Mild Scale (1-3) Al Hydroxide/Mg Hydroxide (Magnesium Hydrox/Alum Hydrox 30 Ml Oral.Susp) 30 ml PO Q6H PRN PRN Reason: Heartburn/Nausea Amlodipine Besylate (Amlodipine Besylate 5 Mg Tablet) 5 mg PO DAILY [facility]; Protocol Last Admin: 02/16/22 08:26 Dose: 5 mg Documented by: Aspirin (Aspirin Enteric Coated 81 Mg Tablet.) 81 mg PO DAILY [facility] Last Admin: 02/16/22 08:26 Dose: 81 mg Documented by: Atorvastatin Calcium (Atorvastatin Calcium 20 Mg Tablet) 20 mg PO DAILY [facility] Last Admin: 02/16/22 08:27 Dose: 20 mg Documented by: Benztropine Mesylate (Benztropine Mesylate 0.5 Mg Tablet) 0.5 mg PO BID@0830,2100 [facility] Last Admin: 02/16/22 08:26 Dose: 0.5 mg Documented by: Cefuroxime Axetil (Cefuroxime Axetil 250 Mg Tablet) 250 mg PO BID [facility] Last Admin: 02/16/22 08:26 Dose: 250 mg Documented by: Clonazepam (Clonazepam 1 Mg Tablet) 1 mg PO DAILY PRN PRN Reason: Anxiety Clonazepam (Clonazepam 0.5 Mg Tablet) 0.5 mg PO BID [facility] Last Admin: 02/16/22 08:44 Dose: 0.5 mg Documented by: Cyclobenzaprine HCl (Cyclobenzaprine Hcl 5 Mg Tablet) 5 mg PO TID PRN PRN Reason: for muscle spasm Gabapentin (Gabapentin 100 Mg Capsule) 100 mg PO BID [facility] Last Admin: 02/16/22 08:26 Dose: 100 mg Documented by: Hydroxyzine HCl (Hydroxyzine Hcl 25 Mg Tablet) 25 mg PO BEDTIME PRN PRN Reason: Anxiety Lisinopril (Lisinopril 10 Mg Tablet) 30 mg PO DAILY [facility]; Protocol Last Admin: 02/16/22 08:26 Dose: 30 mg Documented by: Loperamide HCl (Loperamide Hcl 2 Mg Capsule) 2 mg PO Q4H PRN PRN Reason: Diarrhea Last Admin: 02/16/22 10:30 Dose: 2 mg Documented by: Magnesium Hydroxide (Milk Of Magnesia 30 Ml Oral.Susp) 30 ml PO DAILY PRN PRN Reason: Constipation Meclizine HCl (Meclizine Hcl 25 Mg Tablet) 25 mg PO DAILY PRN PRN Reason: vertigo Memantine (Memantine Hcl 5 Mg Tablet) 5 mg PO BID [facility] Last Admin: 02/16/22 08:26 Dose: 5 mg Documented by: Metformin HCl (Metformin Hcl Er 500 Mg Tab.Er.24h) 1,000 mg PO BID [facility] Last Admin: 02/16/22 08:27 Dose: 1,000 mg Documented by: Naproxen (Naproxen 500 Mg Tablet) 500 mg PO BID [facility] Last Admin: 02/16/22 08:25 Dose: 500 mg Documented by: Pt Own Med (Darifenacin 7.5 Mg) 7.5 mg PO DAILY [facility] Last Admin: 02/16/22 08:48 Dose: 7.5 mg Documented by: Pt Own Med (Loxapine Succinate 5 Mg Capsule) 1 cap PO BEDTIME [facility] Last Admin: 02/15/22 20:28 Dose: 1 cap Documented by: Pt Own Med (Loxapine Succinate 10 Mg Capsule) 10 mg PO BID [facility] Last Admin: 02/16/22 09:01 Dose: 10 mg Documented by: Promethazine HCl (Promethazine Hcl 25 Mg Tablet) 25 mg PO TID PRN PRN Reason: Allergic Symptoms Propranolol HCl (Propranolol Hcl 20 Mg Tablet) 20 mg PO TID [facility]; Protocol Last Admin: 02/16/22 08:26 Dose: 20 mg Documented by: Senna (Sennosides 8.6 Mg Tablet) 8.6 mg PO BEDTIME [facility] Last Admin: 02/15/22 20:30 Dose: Not Given Documented by: Sitagliptin Phosphate (Sitagliptin Phosphate 100 Mg Tablet) 100 mg PO DAILY [facility] Last Admin: 02/16/22 08:26 Dose: 100 mg Documented by: Allergies Allergies Allergy/AdvReac Type Severity Reaction Status Date / Time haloperidol [HALOPERIDOL] Allergy Intermediate SWELLING Verified 01/12/22 14:29 carbamazepine [From Tegretol] Allergy Mild RASH, Verified 01/12/22 14:29 TREMORS lithium [[place]] Allergy Mild RASH, Verified 01/12/22 14:29 CRAWLING OUT OF SKIN olanzapine [From Zyprexa] Allergy Mild RICHARD Verified 01/12/22 14:29 quetiapine [From Seroquel] Allergy Mild SWELLING Verified 01/12/22 14:29 WHOLE BODY, RICHARD topiramate [From TOPAMAX] Allergy Unknown RICHARD, SI Verified 01/12/22 14:29 trazodone [TRAZODONE] Allergy Unknown SYNCOPE Verified 01/12/22 14:29 aripiprazole [From ABILIFY] AdvReac Severe EXTREME SI Verified 01/12/22 14:29 lamotrigine [From Lamictal] AdvReac Mild RICHARD Verified 01/12/22 14:29 modafinil [From Provigil] AdvReac Mild RICHARD Verified 01/12/22 14:29 ALL ANTI DEPRESSENTS Allergy Unknown I GO Uncoded 01/12/22 14:29 MANIC All anti-depressants Allergy Unknown manic, rash Uncoded 01/12/22 14:29 From GEODON Allergy Unknown LETHARGY Uncoded 01/12/22 14:29 From WELLBUTRIN AdvReac Unknown AGITATION, Uncoded 01/12/22 14:29 MAVIS Assessment & Plan Assessment & Plan (1) Cognitive impairment: Status: Acute Code(s): R41.89 - Other symptoms and signs involving cognitive functions and awareness (2) Schizoaffective disorder, bipolar type: Status: Acute Code(s): F25.0 - Schizoaffective disorder, bipolar type Plan Admit to inpatient psychiatry [facility] Minimize anticholinergics, antihistamines, benzodiazepines Group therapy Diagnostic clarification Disposition planning Continue treatment for UTI 02/15: Encourage out of bed. Continue treatment plan. 02/16 Imodium for diarrhea. Monitor for any worsening in GI sx. Cdiff (patient on Abx) I spent minutes with the patient and/or on the patient floor today, greater than?50% of which was spent counseling/coordinating care. Reason for contiued inpatient stay Substantial Risk for: harm to self, inability to function and rapid decompensation
[2022-02-16 14:10] VITALS: BP 130/60; PULSE 71
[2022-02-16 15:45] VITALS: BP 112/62; PULSE 65; TEMP 36.5; O2SAT 92
[2022-02-16] MEDS: Acetaminophen 325 MG TABLET 650 MG PO (19:28)
[2022-02-16] MEDS: Sennosides 8.6 MG TABLET PO (20:46)
[2022-02-17 06:00] VITALS: BP 96/52; PULSE 63; TEMP 36.4; O2SAT 94
[2022-02-17] MEDS: Aspirin Enteric Coated 81 MG TABLET.DR PO (08:51)
[2022-02-17] MEDS: clonazePAM 0.5 MG TABLET PO ×2 (08:52→21:03)
[2022-02-17] MEDS: Memantine HCl 5 MG TABLET PO ×2 (08:52→21:04)
[2022-02-17] MEDS: amLODIPine Besylate 5 MG TABLET PO (08:52)
[2022-02-17] MEDS: Atorvastatin Calcium 20 MG TABLET PO (08:52)
[2022-02-17] MEDS: NaPROXEN 500 MG TABLET PO ×2 (08:52→21:04)
[2022-02-17] MEDS: SITagliptin Phosphate 100 MG TABLET PO (08:53)
[2022-02-17] MEDS: Gabapentin 100 MG CAPSULE PO ×2 (08:53→21:04)
[2022-02-17] MEDS: Benztropine Mesylate 0.5 MG TABLET PO ×2 (08:53→21:03)
[2022-02-17] MEDS: metFORMIN HCl ER 500 MG TAB.ER.24H 1000 MG PO ×2 (08:53→21:05)
[2022-02-17] MEDS: lisinopriL 10 MG TABLET 30 MG PO (09:03)
[2022-02-17 09:21] LABS: Glucose, Whole Blood 135 mg/dL (60-115)
[2022-02-17] MEDS: Propranolol HCL 20 MG TABLET PO ×2 (14:45→21:05)
[2022-02-17 14:46] VITALS: BP 130/81; PULSE 69; O2SAT 94
[2022-02-17] MEDS: Cyclobenzaprine HCl 5 MG TABLET PO (16:05)
--- NOTE | 2022-02-17 17:29 | P.PNPSI_ITS ---
Subjective Subjective Date of Service: 02/17/22 Reason For Visit: psychosis Subjective Notes: Conditional Voluntary Healthcare Proxy: No Guardianship: No Medical Problems Affecting Mental Status: No Interim History: Reports feeling well today. Denies sx of concern. Discussed with pt meeting with her family to clarify concerns and formulate a plan of care. She agrees. Well engaged, STM deficit, positive Medication Compliance: Yes Side effects from medications: No Attending Groups: Intermittent Review of Systems Acute medical concerns: No Medical Review of Systems: unchanged Review of Systems Psychiatric: Reports no additional psychiatric complaints Mental Status Exam Mental Status Exam Patient Appearance: Appropriate Patient Orientation: Person and Place Level of Consciousness: Alert Patient Behavior: Talkative, Cooperative and Good Eye Contact Mood Description: Calm Affect Description: Calm Patient Cognition Impaired: Yes Ability to Follow Directions: Good Speech Pattern: Impoverished, Spontaneous Speech, Soft-Spoken and Cofabulation (mild) Memory Description: Remote Impaired and Short Term Intact Hallucinations: None Delusions: Not Present Thought Process: Distracted (mild) Thought Content: positive for [place] and positive for Suicidal Ideation (denies) Judgement: Fair Diagnostics Vital Signs (24Hr): Vital Signs - 24 hr 02/17/22 06:00 02/17/22 14:46 Temperature 97.5 F Pulse Rate 63 69 Blood Pressure 96/52 L 130/81 Pulse Oximetry 94 94 BMI result Body Mass Index 36.6 Labs Results: 02/11/22 20:03 02/14/22 07:35 Labs: Laboratory Results - last 48 hr 02/16/22 02/16/22 02/17/22 06:29 08:15 08:12 POC Glucose 126 H 144 H 135 H Medications Medications Current Medications Acetaminophen (Acetaminophen 325 Mg Tablet) 650 mg PO Q6H PRN PRN Reason: Headache/Pain Mild Scale (1-3) Last Admin: 02/16/22 19:28 Dose: 650 mg Documented by: Al Hydroxide/Mg Hydroxide (Magnesium Hydrox/Alum Hydrox 30 Ml Oral.Susp) 30 ml PO Q6H PRN PRN Reason: Heartburn/Nausea Amlodipine Besylate (Amlodipine Besylate 5 Mg Tablet) 5 mg PO DAILY [facility]; Protocol Last Admin: 02/17/22 08:52 Dose: 5 mg Documented by: Aspirin (Aspirin Enteric Coated 81 Mg Tablet.) 81 mg PO DAILY [facility] Last Admin: 02/17/22 08:51 Dose: 81 mg Documented by: Atorvastatin Calcium (Atorvastatin Calcium 20 Mg Tablet) 20 mg PO DAILY [facility] Last Admin: 02/17/22 08:52 Dose: 20 mg Documented by: Benztropine Mesylate (Benztropine Mesylate 0.5 Mg Tablet) 0.5 mg PO BID@0830,2100 [facility] Last Admin: 02/17/22 08:53 Dose: 0.5 mg Documented by: Cefuroxime Axetil (Cefuroxime Axetil 250 Mg Tablet) 250 mg PO BID [facility] Last Admin: 02/17/22 08:53 Dose: 250 mg Documented by: Clonazepam (Clonazepam 0.5 Mg Tablet) 0.5 mg PO BID [facility] Last Admin: 02/17/22 08:52 Dose: 0.5 mg Documented by: Cyclobenzaprine HCl (Cyclobenzaprine Hcl 5 Mg Tablet) 5 mg PO TID PRN PRN Reason: for muscle spasm Last Admin: 02/17/22 16:05 Dose: 5 mg Documented by: Gabapentin (Gabapentin 100 Mg Capsule) 100 mg PO BID [facility] Last Admin: 02/17/22 08:53 Dose: 100 mg Documented by: Hydroxyzine HCl (Hydroxyzine Hcl 25 Mg Tablet) 25 mg PO BEDTIME PRN PRN Reason: Anxiety Lisinopril (Lisinopril 10 Mg Tablet) 30 mg PO DAILY [facility]; Protocol Last Admin: 02/17/22 09:03 Dose: 30 mg Documented by: Loperamide HCl (Loperamide Hcl 2 Mg Capsule) 2 mg PO Q4H PRN PRN Reason: Diarrhea Last Admin: 02/16/22 10:30 Dose: 2 mg Documented by: Magnesium Hydroxide (Milk Of Magnesia 30 Ml Oral.Susp) 30 ml PO DAILY PRN PRN Reason: Constipation Meclizine HCl (Meclizine Hcl 25 Mg Tablet) 25 mg PO DAILY PRN PRN Reason: vertigo Memantine (Memantine Hcl 5 Mg Tablet) 5 mg PO BID [facility] Last Admin: 02/17/22 08:52 Dose: 5 mg Documented by: Metformin HCl (Metformin Hcl Er 500 Mg Tab.Er.24h) 1,000 mg PO BID [facility] Last Admin: 02/17/22 08:53 Dose: 1,000 mg Documented by: Naproxen (Naproxen 500 Mg Tablet) 500 mg PO BID [facility] Last Admin: 02/17/22 08:52 Dose: 500 mg Documented by: Pt Own Med (Darifenacin 7.5 Mg) 7.5 mg PO DAILY [facility] Last Admin: 02/17/22 08:50 Dose: 7.5 mg Documented by: Pt Own Med (Loxapine Succinate 5 Mg Capsule) 1 cap PO BEDTIME [facility] Last Admin: 02/16/22 21:07 Dose: 1 cap Documented by: Pt Own Med (Loxapine Succinate 10 Mg Capsule) 10 mg PO BID [facility] Last Admin: 02/17/22 08:50 Dose: 10 mg Documented by: Promethazine HCl (Promethazine Hcl 25 Mg Tablet) 25 mg PO TID PRN PRN Reason: Allergic Symptoms Propranolol HCl (Propranolol Hcl 20 Mg Tablet) 20 mg PO TID [facility]; Protocol Last Admin: 02/17/22 14:45 Dose: 20 mg Documented by: Senna (Sennosides 8.6 Mg Tablet) 8.6 mg PO BEDTIME [facility] Last Admin: 02/16/22 20:46 Dose: 8.6 mg Documented by: Sitagliptin Phosphate (Sitagliptin Phosphate 100 Mg Tablet) 100 mg PO DAILY [facility] Last Admin: 02/17/22 08:53 Dose: 100 mg Documented by: Allergies Allergies Allergy/AdvReac Type Severity Reaction Status Date / Time haloperidol [HALOPERIDOL] Allergy Intermediate SWELLING Verified 01/12/22 14:29 carbamazepine [From Tegretol] Allergy Mild RASH, Verified 01/12/22 14:29 TREMORS lithium [[place]] Allergy Mild RASH, Verified 01/12/22 14:29 CRAWLING OUT OF SKIN olanzapine [From Zyprexa] Allergy Mild RICHARD Verified 01/12/22 14:29 quetiapine [From Seroquel] Allergy Mild SWELLING Verified 01/12/22 14:29 WHOLE BODY, RICHARD topiramate [From TOPAMAX] Allergy Unknown RICHARD, SI Verified 01/12/22 14:29 trazodone [TRAZODONE] Allergy Unknown SYNCOPE Verified 01/12/22 14:29 aripiprazole [From ABILIFY] AdvReac Severe EXTREME SI Verified 01/12/22 14:29 lamotrigine [From Lamictal] AdvReac Mild RICHARD Verified 01/12/22 14:29 modafinil [From Provigil] AdvReac Mild RICHARD Verified 01/12/22 14:29 ALL ANTI DEPRESSENTS Allergy Unknown I GO Uncoded 01/12/22 14:29 MANIC All anti-depressants Allergy Unknown manic, rash Uncoded 01/12/22 14:29 From GEODON Allergy Unknown LETHARGY Uncoded 01/12/22 14:29 From WELLBUTRIN AdvReac Unknown AGITATION, Uncoded 01/12/22 14:29 MAVIS Assessment & Plan Assessment & Plan (1) Cognitive impairment: Status: Acute Code(s): R41.89 - Other symptoms and signs involving cognitive functions and awareness (2) Schizoaffective disorder, bipolar type: Status: Acute Code(s): F25.0 - Schizoaffective disorder, bipolar type Plan Admit to inpatient psychiatry [facility] Minimize anticholinergics, antihistamines, benzodiazepines Group therapy Diagnostic clarification Disposition planning Continue treatment for UTI 02/15: Encourage out of bed. Continue treatment plan. 02/16 Imodium for diarrhea. Monitor for any worsening in GI sx. Cdiff (patient on Abx) 02/17/22- Family meeting to focus interventions. Continue current plan. I spent minutes with the patient and/or on the patient floor today, greater than?50% of which was spent counseling/coordinating care. Patient educated on: therapeutic strategies Informed Consent: further education needed Reason for contiued inpatient stay Substantial Risk for: inability to function and rapid decompensation
[2022-02-17 18:00] VITALS: BP 135/79; PULSE 68; RESP 14; TEMP 36.8; O2SAT 96
[2022-02-17] MEDS: Sennosides 8.6 MG TABLET PO (21:03)
[2022-02-18 06:00] VITALS: BP 107/67; PULSE 60; TEMP 36.3; O2SAT 94
[2022-02-18 08:21] LABS: Glucose, Whole Blood 130 mg/dL (60-115)
[2022-02-18] MEDS: metFORMIN HCl ER 500 MG TAB.ER.24H 1000 MG PO ×2 (09:21→20:46)
[2022-02-18] MEDS: amLODIPine Besylate 5 MG TABLET PO (09:21)
[2022-02-18] MEDS: NaPROXEN 500 MG TABLET PO ×2 (09:21→20:45)
[2022-02-18] MEDS: Propranolol HCL 20 MG TABLET PO ×2 (09:22→20:45)
[2022-02-18] MEDS: SITagliptin Phosphate 100 MG TABLET PO (09:22)
[2022-02-18] MEDS: clonazePAM 0.5 MG TABLET PO ×2 (09:22→20:46)
[2022-02-18] MEDS: Aspirin Enteric Coated 81 MG TABLET.DR PO (09:22)
[2022-02-18] MEDS: lisinopriL 10 MG TABLET 30 MG PO (09:22)
[2022-02-18] MEDS: Benztropine Mesylate 0.5 MG TABLET PO ×2 (09:22→20:48)
[2022-02-18] MEDS: Atorvastatin Calcium 20 MG TABLET PO (09:22)
[2022-02-18] MEDS: Gabapentin 100 MG CAPSULE PO ×2 (09:22→20:46)
[2022-02-18] MEDS: Memantine HCl 5 MG TABLET PO ×2 (09:22→20:47)
[2022-02-18 10:58] LABS: Folate 16.7 ng/mL (> or = 4.0); Vitamin B12 376 pg/mL (200-900)
--- NOTE | 2022-02-18 14:21 | P.PNPSI_ITS ---
Subjective Subjective Date of Service: 02/18/22 Reason For Visit: psychosis Subjective Notes: Conditional Voluntary Healthcare Proxy: No Guardianship: No Medical Problems Affecting Mental Status: No Interim History: Pt was in bed when seen this a.m. She continues to deny complaints, does report memory loss, adds, that is a problem with my dementia . She is easily engaged, conversational, spontaneous laughter, but with periods of paucity and distraction. She reports she feels physically well. Discussed arranging a family meeting to discuss specific interventions. Medication Compliance: Yes Side effects from medications: No Attending Groups: No Review of Systems Acute medical concerns: No Medical Review of Systems: unchanged Review of Systems Psychiatric: Reports no additional psychiatric complaints Mental Status Exam Mental Status Exam Patient Appearance: Appropriate Patient Orientation: Person and Place Level of Consciousness: Alert Patient Behavior: Talkative, Cooperative and Good Eye Contact Mood Description: Calm Affect Description: Calm Patient Cognition Impaired: Yes Ability to Follow Directions: Good Speech Pattern: Impoverished, Spontaneous Speech, Soft-Spoken and Cofabulation (mild) Memory Description: Remote Impaired and Short Term Intact Hallucinations: None Delusions: Not Present Thought Process: Distracted (mild) Thought Content: positive for [place] and positive for Suicidal Ideation (denies) Judgement: Fair Diagnostics Vital Signs (24Hr): Vital Signs - 24 hr 02/17/22 14:46 02/17/22 18:00 02/18/22 06:00 Temperature 98.2 F 97.4 F Pulse Rate 69 68 60 Respiratory Rate 14 Blood Pressure 130/81 135/79 107/67 Pulse Oximetry 94 96 94 BMI result Body Mass Index 36.6 Labs Results: 02/11/22 20:03 02/14/22 07:35 Labs: Laboratory Results - last 48 hr 02/17/22 02/18/22 02/18/22 08:12 08:16 08:48 POC Glucose 135 H 130 H Vitamin B12 376 Folate 16.7 Medications Medications Current Medications Acetaminophen (Acetaminophen 325 Mg Tablet) 650 mg PO Q6H PRN PRN Reason: Headache/Pain Mild Scale (1-3) Last Admin: 02/16/22 19:28 Dose: 650 mg Documented by: Al Hydroxide/Mg Hydroxide (Magnesium Hydrox/Alum Hydrox 30 Ml Oral.Susp) 30 ml PO Q6H PRN PRN Reason: Heartburn/Nausea Amlodipine Besylate (Amlodipine Besylate 5 Mg Tablet) 5 mg PO DAILY [facility]; Protocol Last Admin: 02/18/22 09:21 Dose: 5 mg Documented by: Aspirin (Aspirin Enteric Coated 81 Mg Tablet.) 81 mg PO DAILY [facility] Last Admin: 02/18/22 09:22 Dose: 81 mg Documented by: Atorvastatin Calcium (Atorvastatin Calcium 20 Mg Tablet) 20 mg PO DAILY [facility] Last Admin: 02/18/22 09:22 Dose: 20 mg Documented by: Benztropine Mesylate (Benztropine Mesylate 0.5 Mg Tablet) 0.5 mg PO BID@0830,2100 [facility] Last Admin: 02/18/22 09:22 Dose: 0.5 mg Documented by: Cefuroxime Axetil (Cefuroxime Axetil 250 Mg Tablet) 250 mg PO BID [facility] Last Admin: 02/18/22 09:21 Dose: 250 mg Documented by: Clonazepam (Clonazepam 0.5 Mg Tablet) 0.5 mg PO BID [facility] Last Admin: 02/18/22 09:22 Dose: 0.5 mg Documented by: Cyclobenzaprine HCl (Cyclobenzaprine Hcl 5 Mg Tablet) 5 mg PO TID PRN PRN Reason: for muscle spasm Last Admin: 02/17/22 16:05 Dose: 5 mg Documented by: Gabapentin (Gabapentin 100 Mg Capsule) 100 mg PO BID [facility] Last Admin: 02/18/22 09:22 Dose: 100 mg Documented by: Hydroxyzine HCl (Hydroxyzine Hcl 25 Mg Tablet) 25 mg PO BEDTIME PRN PRN Reason: Anxiety Lisinopril (Lisinopril 10 Mg Tablet) 30 mg PO DAILY [facility]; Protocol Last Admin: 02/18/22 09:22 Dose: 30 mg Documented by: Loperamide HCl (Loperamide Hcl 2 Mg Capsule) 2 mg PO Q4H PRN PRN Reason: Diarrhea Last Admin: 02/16/22 10:30 Dose: 2 mg Documented by: Magnesium Hydroxide (Milk Of Magnesia 30 Ml Oral.Susp) 30 ml PO DAILY PRN PRN Reason: Constipation Meclizine HCl (Meclizine Hcl 25 Mg Tablet) 25 mg PO DAILY PRN PRN Reason: vertigo Memantine (Memantine Hcl 5 Mg Tablet) 5 mg PO BID [facility] Last Admin: 02/18/22 09:22 Dose: 5 mg Documented by: Metformin HCl (Metformin Hcl Er 500 Mg Tab.Er.24h) 1,000 mg PO BID [facility] Last Admin: 02/18/22 09:21 Dose: 1,000 mg Documented by: Naproxen (Naproxen 500 Mg Tablet) 500 mg PO BID [facility] Last Admin: 02/18/22 09:21 Dose: 500 mg Documented by: Pt Own Med (Darifenacin 7.5 Mg) 7.5 mg PO DAILY [facility] Last Admin: 02/18/22 09:21 Dose: 7.5 mg Documented by: Pt Own Med (Loxapine Succinate 5 Mg Capsule) 1 cap PO BEDTIME [facility] Last Admin: 02/17/22 21:08 Dose: 1 cap Documented by: Pt Own Med (Loxapine Succinate 10 Mg Capsule) 10 mg PO BID [facility] Last Admin: 02/18/22 09:21 Dose: 10 mg Documented by: Promethazine HCl (Promethazine Hcl 25 Mg Tablet) 25 mg PO TID PRN PRN Reason: Allergic Symptoms Propranolol HCl (Propranolol Hcl 20 Mg Tablet) 20 mg PO TID [facility]; Protocol Last Admin: 02/18/22 09:22 Dose: 20 mg Documented by: Senna (Sennosides 8.6 Mg Tablet) 8.6 mg PO BEDTIME [facility] Last Admin: 02/17/22 21:03 Dose: 8.6 mg Documented by: Sitagliptin Phosphate (Sitagliptin Phosphate 100 Mg Tablet) 100 mg PO DAILY [facility] Last Admin: 02/18/22 09:22 Dose: 100 mg Documented by: Allergies Allergies Allergy/AdvReac Type Severity Reaction Status Date / Time haloperidol [HALOPERIDOL] Allergy Intermediate SWELLING Verified 01/12/22 14:29 carbamazepine [From Tegretol] Allergy Mild RASH, Verified 01/12/22 14:29 TREMORS lithium [[place]] Allergy Mild RASH, Verified 01/12/22 14:29 CRAWLING OUT OF SKIN olanzapine [From Zyprexa] Allergy Mild RICHARD Verified 01/12/22 14:29 quetiapine [From Seroquel] Allergy Mild SWELLING Verified 01/12/22 14:29 WHOLE BODY, RICHARD topiramate [From TOPAMAX] Allergy Unknown RICHARD, SI Verified 01/12/22 14:29 trazodone [TRAZODONE] Allergy Unknown SYNCOPE Verified 01/12/22 14:29 aripiprazole [From ABILIFY] AdvReac Severe EXTREME SI Verified 01/12/22 14:29 lamotrigine [From Lamictal] AdvReac Mild RICHARD Verified 01/12/22 14:29 modafinil [From Provigil] AdvReac Mild RICHARD Verified 01/12/22 14:29 ALL ANTI DEPRESSENTS Allergy Unknown I GO Uncoded 01/12/22 14:29 MANIC All anti-depressants Allergy Unknown manic, rash Uncoded 01/12/22 14:29 From GEODON Allergy Unknown LETHARGY Uncoded 01/12/22 14:29 From WELLBUTRIN AdvReac Unknown AGITATION, Uncoded 01/12/22 14:29 MAVIS Assessment & Plan Assessment & Plan (1) Cognitive impairment: Status: Acute Code(s): R41.89 - Other symptoms and signs involving cognitive functions and awareness (2) Schizoaffective disorder, bipolar type: Status: Acute Code(s): F25.0 - Schizoaffective disorder, bipolar type Plan Admit to inpatient psychiatry [facility] anticholinergics, antihistamines, benzodiazepines Group therapy Diagnostic clarification Disposition planning Continue treatment for UTI 02/15: Encourage out of bed. Continue treatment plan. 02/16 Imodium for diarrhea. Monitor for any worsening in GI sx. Cdiff (patient on Abx) 02/18/22: Family meeting 02/20 2pm I spent minutes with the patient and/or on the patient floor today, greater than?50% of which was spent counseling/coordinating care. Patient educated on: therapeutic strategies Informed Consent: further education needed Reason for contiued inpatient stay Substantial Risk for: inability to function and rapid decompensation
[2022-02-18 20:40] VITALS: BP 139/81; PULSE 69; TEMP 36.5; O2SAT 96
[2022-02-18] MEDS: Sennosides 8.6 MG TABLET PO (20:47)
[2022-02-19 06:00] VITALS: BP 116/77; PULSE 77; RESP 16; TEMP 36.6; O2SAT 93
[2022-02-19 06:38] LABS: Glucose, Whole Blood 117 mg/dL (60-115)
[2022-02-19 07:00] VITALS: BMI 35.3
[2022-02-19] MEDS: amLODIPine Besylate 5 MG TABLET PO (08:33)
[2022-02-19] MEDS: Aspirin Enteric Coated 81 MG TABLET.DR PO (08:33)
[2022-02-19] MEDS: Atorvastatin Calcium 20 MG TABLET PO (08:33)
[2022-02-19] MEDS: Propranolol HCL 20 MG TABLET PO ×3 (08:33→20:55)
[2022-02-19] MEDS: SITagliptin Phosphate 100 MG TABLET PO (08:33)
[2022-02-19] MEDS: Memantine HCl 5 MG TABLET PO ×2 (08:33→20:55)
[2022-02-19] MEDS: NaPROXEN 500 MG TABLET PO ×2 (08:34→22:57)
[2022-02-19] MEDS: metFORMIN HCl ER 500 MG TAB.ER.24H 1000 MG PO ×2 (08:34→20:55)
[2022-02-19] MEDS: Benztropine Mesylate 0.5 MG TABLET PO ×2 (08:35→20:55)
[2022-02-19] MEDS: Gabapentin 100 MG CAPSULE PO ×2 (08:35→20:56)
[2022-02-19] MEDS: lisinopriL 10 MG TABLET 30 MG PO (08:35)
--- NOTE | 2022-02-19 12:45 | HO.PSYCHPN ---
Subjective Subjective Date of Service: 02/19/22 Reason For Visit: psychosis Subjective Notes: Conditional Voluntary Interim History: Pt reports feeling tired. She reports she slept well at night. She reports poor appetite. She reports in terms of her mood she is feeling less depressed. She reports less AH. She denies SI/HI. Per nursing no behavioral concerns. Medication Compliance: Yes Side effects from medications: No Review of Systems Review of Systems Constitutional : No Fever, No Chills ENT/Mouth : No Ear Pain, No Nasal Congestion, No sore throat Eyes: No Eye Pain, No Swelling, No Redness Cardiovascular : No Chest Pain, No SOB Respiratory : No Cough, No Sputum, No Dyspnea Gastrointestinal : No Nausea, No Vomiting, No Diarrhea, No Hematochezia, No Melena Genitourinary : No Dysuria, No Urinary Frequency, No Hematuria Musculoskeletal : No Myalgias Skin : No Skin Lesions, No rash Neuro : No Weakness, No Numbness, No Paresthesias, No Dizziness, No Headache Psych : No Anxiety, No Depression, positive SI, No HI, positive AH/VH All other systems reviewed and are negative Yes all other systems are reviewed and are negative Psychiatric: Reports no additional psychiatric complaints Mental Status Exam Mental Status Exam Narrative: Appearance: wearing hospital gown, in NAD Behavior: cooperative Psychomotor: no agitation or retardation noted TP: linear TC: hearing voices, no suicidal at the moment. Mood: tired Affect: congruent AH/VH: less AH SI: denies HI: denies Delusions: none Insight/judgment: poor x 3. Memory/cog: alert, She is oriented to year, place, situation. Diagnostics Vital Signs (24Hr): Vital Signs - 24 hr 02/19/22 14:28 02/19/22 20:53 Temperature 98.2 F 97.6 F Pulse Rate 79 63 Respiratory Rate 16 Blood Pressure 121/81 129/78 Pulse Oximetry 93 BMI result Body Mass Index 35.3 Labs Results: 02/11/22 20:03 02/14/22 07:35 Labs: Laboratory Results - last 48 hr 02/18/22 02/19/22 08:48 06:32 POC Glucose 117 H Vitamin B12 376 Folate 16.7 Medications Medications Current Medications Acetaminophen (Acetaminophen 325 Mg Tablet) 650 mg PO Q6H PRN PRN Reason: Headache/Pain Mild Scale (1-3) Last Admin: 02/16/22 19:28 Dose: 650 mg Documented by: Al Hydroxide/Mg Hydroxide (Magnesium Hydrox/Alum Hydrox 30 Ml Oral.Susp) 30 ml PO Q6H PRN PRN Reason: Heartburn/Nausea Amlodipine Besylate (Amlodipine Besylate 5 Mg Tablet) 5 mg PO DAILY [facility]; Protocol Last Admin: 02/20/22 08:36 Dose: 5 mg Documented by: Aspirin (Aspirin Enteric Coated 81 Mg Tablet.) 81 mg PO DAILY [facility] Last Admin: 02/20/22 08:36 Dose: 81 mg Documented by: Atorvastatin Calcium (Atorvastatin Calcium 20 Mg Tablet) 20 mg PO DAILY [facility] Last Admin: 02/20/22 08:36 Dose: 20 mg Documented by: Benztropine Mesylate (Benztropine Mesylate 0.5 Mg Tablet) 0.5 mg PO BID@0830,2100 [facility] Last Admin: 02/20/22 08:36 Dose: 0.5 mg Documented by: Cyclobenzaprine HCl (Cyclobenzaprine Hcl 5 Mg Tablet) 5 mg PO TID PRN PRN Reason: for muscle spasm Last Admin: 02/17/22 16:05 Dose: 5 mg Documented by: Gabapentin (Gabapentin 100 Mg Capsule) 100 mg PO BID [facility] Last Admin: 02/20/22 08:36 Dose: 100 mg Documented by: Hydroxyzine HCl (Hydroxyzine Hcl 25 Mg Tablet) 25 mg PO BEDTIME PRN PRN Reason: Anxiety Lisinopril (Lisinopril 10 Mg Tablet) 30 mg PO DAILY [facility]; Protocol Last Admin: 02/20/22 08:35 Dose: 30 mg Documented by: Loperamide HCl (Loperamide Hcl 2 Mg Capsule) 2 mg PO Q4H PRN PRN Reason: Diarrhea Last Admin: 02/16/22 10:30 Dose: 2 mg Documented by: Magnesium Hydroxide (Milk Of Magnesia 30 Ml Oral.Susp) 30 ml PO DAILY PRN PRN Reason: Constipation Meclizine HCl (Meclizine Hcl 25 Mg Tablet) 25 mg PO DAILY PRN PRN Reason: vertigo Memantine (Memantine Hcl 5 Mg Tablet) 5 mg PO BID [facility] Last Admin: 02/20/22 08:35 Dose: 5 mg Documented by: Metformin HCl (Metformin Hcl Er 500 Mg Tab.Er.24h) 1,000 mg PO BID [facility] Last Admin: 02/20/22 08:36 Dose: 1,000 mg Documented by: Naproxen (Naproxen 500 Mg Tablet) 500 mg PO BID [facility] Last Admin: 02/20/22 08:36 Dose: 500 mg Documented by: Pt Own Med (Darifenacin 7.5 Mg) 7.5 mg PO DAILY [facility] Last Admin: 02/20/22 08:35 Dose: 7.5 mg Documented by: Pt Own Med (Loxapine Succinate 5 Mg Capsule) 1 cap PO BEDTIME [facility] Last Admin: 02/19/22 22:59 Dose: 1 cap Documented by: Pt Own Med (Loxapine Succinate 10 Mg Capsule) 10 mg PO BID [facility] Last Admin: 02/20/22 08:35 Dose: 10 mg Documented by: Promethazine HCl (Promethazine Hcl 25 Mg Tablet) 25 mg PO TID PRN PRN Reason: Allergic Symptoms Propranolol HCl (Propranolol Hcl 20 Mg Tablet) 20 mg PO TID [facility]; Protocol Last Admin: 02/20/22 08:36 Dose: 20 mg Documented by: Senna (Sennosides 8.6 Mg Tablet) 8.6 mg PO BEDTIME [facility] Last Admin: 02/19/22 20:56 Dose: 8.6 mg Documented by: Sitagliptin Phosphate (Sitagliptin Phosphate 100 Mg Tablet) 100 mg PO DAILY [facility] Last Admin: 02/20/22 08:36 Dose: 100 mg Documented by: Allergies Allergies Allergy/AdvReac Type Severity Reaction Status Date / Time haloperidol [HALOPERIDOL] Allergy Intermediate SWELLING Verified 01/12/22 14:29 carbamazepine [From Tegretol] Allergy Mild RASH, Verified 01/12/22 14:29 TREMORS lithium [[place]] Allergy Mild RASH, Verified 01/12/22 14:29 CRAWLING OUT OF SKIN olanzapine [From Zyprexa] Allergy Mild RICHARD Verified 01/12/22 14:29 quetiapine [From Seroquel] Allergy Mild SWELLING Verified 01/12/22 14:29 WHOLE BODY, RICHARD topiramate [From TOPAMAX] Allergy Unknown RICHARD, SI Verified 01/12/22 14:29 trazodone [TRAZODONE] Allergy Unknown SYNCOPE Verified 01/12/22 14:29 aripiprazole [From ABILIFY] AdvReac Severe EXTREME SI Verified 01/12/22 14:29 lamotrigine [From Lamictal] AdvReac Mild RICHARD Verified 01/12/22 14:29 modafinil [From Provigil] AdvReac Mild RICHARD Verified 01/12/22 14:29 ALL ANTI DEPRESSENTS Allergy Unknown I GO Uncoded 01/12/22 14:29 MANIC All anti-depressants Allergy Unknown manic, rash Uncoded 01/12/22 14:29 From GEODON Allergy Unknown LETHARGY Uncoded 01/12/22 14:29 From WELLBUTRIN AdvReac Unknown AGITATION, Uncoded 01/12/22 14:29 MAVIS Assessment & Plan Assessment & Plan (1) Cognitive impairment: Status: Acute Code(s): R41.89 - Other symptoms and signs involving cognitive functions and awareness (2) Schizoaffective disorder, bipolar type: Status: Acute Code(s): F25.0 - Schizoaffective disorder, bipolar type Plan Admit to inpatient psychiatry [facility] anticholinergics, antihistamines, benzodiazepines Group therapy Diagnostic clarification Disposition planning Continue treatment for UTI 02/15: Encourage out of bed. Continue treatment plan. 02/16 Imodium for diarrhea. Monitor for any worsening in GI sx. Cdiff (patient on Abx) 02/18/22: Family meeting 02/20 2pm 02/19 continue current medications. I spent minutes with the patient and/or on the patient floor today, greater than?50% of which was spent counseling/coordinating care. Reason for contiued inpatient stay Substantial Risk for: inability to function
[2022-02-19 14:28] VITALS: BP 121/81; PULSE 79; TEMP 36.8
[2022-02-19 20:53] VITALS: BP 129/78; PULSE 63; RESP 16; TEMP 36.4; O2SAT 93
[2022-02-19] MEDS: Sennosides 8.6 MG TABLET PO (20:56)
[2022-02-20] MEDS: Memantine HCl 5 MG TABLET PO ×2 (08:35→20:04)
[2022-02-20] MEDS: lisinopriL 10 MG TABLET 30 MG PO (08:35)
[2022-02-20] MEDS: NaPROXEN 500 MG TABLET PO ×2 (08:36→20:04)
[2022-02-20] MEDS: SITagliptin Phosphate 100 MG TABLET PO (08:36)
[2022-02-20] MEDS: Benztropine Mesylate 0.5 MG TABLET PO ×2 (08:36→20:04)
[2022-02-20] MEDS: amLODIPine Besylate 5 MG TABLET PO (08:36)
[2022-02-20] MEDS: Propranolol HCL 20 MG TABLET PO ×3 (08:36→20:04)
[2022-02-20] MEDS: Gabapentin 100 MG CAPSULE PO ×2 (08:36→20:04)
[2022-02-20] MEDS: Atorvastatin Calcium 20 MG TABLET PO (08:36)
[2022-02-20] MEDS: metFORMIN HCl ER 500 MG TAB.ER.24H 1000 MG PO ×2 (08:36→20:04)
[2022-02-20] MEDS: Aspirin Enteric Coated 81 MG TABLET.DR PO (08:36)
[2022-02-20 08:58] VITALS: BP 130/73; PULSE 77; RESP 14; TEMP 36.6; O2SAT 91
[2022-02-20] MEDS: Loperamide HCl 2 MG CAPSULE PO (12:26)
--- NOTE | 2022-02-20 17:12 | HO.PSYCHPN ---
Subjective Subjective Date of Service: 02/20/22 Reason For Visit: psychosis Subjective Notes: Conditional Voluntary Healthcare Proxy: No Guardianship: No Medical Problems Affecting Mental Status: No Interim History: Met with pt, daughter, daughter via phone and Dylon GABRIEL. Pt reports feeling well-spontaneous smiling, interacting with family, team, reports looking forward to daughter's upcoming wedding. Daughter will have her shower on 02/22 [id number] will come to the unit so they can watch it together via zoom. Discussed family concerns-daughters report sx vary-pt is alone most of the day-family has been trying to get a [employer] for the day-they just received approval for more hours. Discussed pt doing well in milieu, liking some of the groups and discussed the possibility of day program-by history she has attended, had benefit, but with changes did not tolerate it well and stopped as a result. Pt also, at home has had falls-meds were changed recently to manage this sx-review of all meds with pt, family today. Discussed the possibility of [facility]. Discussed discharge-if pt remains stable with positive mood changes as we are seeing, discussed early next week. Medication Compliance: Yes Side effects from medications: No Attending Groups: Yes Review of Systems Acute medical concerns: No Medical Review of Systems: unchanged Review of Systems Psychiatric: Reports no additional psychiatric complaints Mental Status Exam Mental Status Exam Patient Appearance: Appropriate Patient Orientation: Person and Place Level of Consciousness: Alert Patient Behavior: Talkative, Cooperative and Good Eye Contact Mood Description: Calm Affect Description: Calm Patient Cognition Impaired: Yes Ability to Follow Directions: Good Speech Pattern: Impoverished, Spontaneous Speech, Soft-Spoken and Cofabulation (mild) Memory Description: Remote Impaired and Short Term Intact Hallucinations: None Delusions: Not Present Thought Process: Distracted (mild) Thought Content: positive for [place] and positive for Suicidal Ideation (denies) Judgement: Fair Diagnostics Vital Signs (24Hr): Vital Signs - 24 hr 02/19/22 20:53 02/20/22 08:58 Temperature 97.6 F 98 F Pulse Rate 63 77 Respiratory Rate 16 14 Blood Pressure 129/78 130/73 Pulse Oximetry 93 91 L BMI result Body Mass Index 35.3 Labs Results: 02/11/22 20:03 02/14/22 07:35 Labs: Laboratory Results - last 48 hr 02/19/22 06:32 POC Glucose 117 H Medications Medications Current Medications Acetaminophen (Acetaminophen 325 Mg Tablet) 650 mg PO Q6H PRN PRN Reason: Headache/Pain Mild Scale (1-3) Last Admin: 02/16/22 19:28 Dose: 650 mg Documented by: Al Hydroxide/Mg Hydroxide (Magnesium Hydrox/Alum Hydrox 30 Ml Oral.Susp) 30 ml PO Q6H PRN PRN Reason: Heartburn/Nausea Amlodipine Besylate (Amlodipine Besylate 5 Mg Tablet) 5 mg PO DAILY [facility]; Protocol Last Admin: 02/20/22 08:36 Dose: 5 mg Documented by: Aspirin (Aspirin Enteric Coated 81 Mg Tablet.) 81 mg PO DAILY [facility] Last Admin: 02/20/22 08:36 Dose: 81 mg Documented by: Atorvastatin Calcium (Atorvastatin Calcium 20 Mg Tablet) 20 mg PO DAILY [facility] Last Admin: 02/20/22 08:36 Dose: 20 mg Documented by: Benztropine Mesylate (Benztropine Mesylate 0.5 Mg Tablet) 0.5 mg PO BID@0830,2100 [facility] Last Admin: 02/20/22 08:36 Dose: 0.5 mg Documented by: Gabapentin (Gabapentin 100 Mg Capsule) 100 mg PO BID [facility] Last Admin: 02/20/22 08:36 Dose: 100 mg Documented by: Hydroxyzine HCl (Hydroxyzine Hcl 25 Mg Tablet) 25 mg PO BEDTIME PRN PRN Reason: Anxiety Lisinopril (Lisinopril 10 Mg Tablet) 30 mg PO DAILY [facility]; Protocol Last Admin: 02/20/22 08:35 Dose: 30 mg Documented by: Loperamide HCl (Loperamide Hcl 2 Mg Capsule) 2 mg PO Q4H PRN PRN Reason: Diarrhea Last Admin: 02/20/22 12:26 Dose: 2 mg Documented by: Magnesium Hydroxide (Milk Of Magnesia 30 Ml Oral.Susp) 30 ml PO DAILY PRN PRN Reason: Constipation Meclizine HCl (Meclizine Hcl 25 Mg Tablet) 25 mg PO DAILY PRN PRN Reason: vertigo Memantine (Memantine Hcl 5 Mg Tablet) 5 mg PO BID [facility] Last Admin: 02/20/22 08:35 Dose: 5 mg Documented by: Metformin HCl (Metformin Hcl Er 500 Mg Tab.Er.24h) 1,000 mg PO BID [facility] Last Admin: 02/20/22 08:36 Dose: 1,000 mg Documented by: Naproxen (Naproxen 500 Mg Tablet) 500 mg PO BID [facility] Last Admin: 02/20/22 08:36 Dose: 500 mg Documented by: Pt Own Med (Darifenacin 7.5 Mg) 7.5 mg PO DAILY [facility] Last Admin: 02/20/22 08:35 Dose: 7.5 mg Documented by: Pt Own Med (Loxapine Succinate 10 Mg Capsule) 10 mg PO BID [facility] Last Admin: 02/20/22 08:35 Dose: 10 mg Documented by: Patient Own Med ( Loxapine Succinate 5 Mg) 15 mg PO BEDTIME [facility] Promethazine HCl (Promethazine Hcl 25 Mg Tablet) 25 mg PO TID PRN PRN Reason: Allergic Symptoms Propranolol HCl (Propranolol Hcl 20 Mg Tablet) 20 mg PO TID [facility]; Protocol Last Admin: 02/20/22 14:13 Dose: 20 mg Documented by: Senna (Sennosides 8.6 Mg Tablet) 8.6 mg PO BEDTIME [facility] Last Admin: 02/19/22 20:56 Dose: 8.6 mg Documented by: Sitagliptin Phosphate (Sitagliptin Phosphate 100 Mg Tablet) 100 mg PO DAILY [facility] Last Admin: 02/20/22 08:36 Dose: 100 mg Documented by: Allergies Allergies Allergy/AdvReac Type Severity Reaction Status Date / Time haloperidol [HALOPERIDOL] Allergy Intermediate SWELLING Verified 01/12/22 14:29 carbamazepine [From Tegretol] Allergy Mild RASH, Verified 01/12/22 14:29 TREMORS lithium [[place]] Allergy Mild RASH, Verified 01/12/22 14:29 CRAWLING OUT OF SKIN olanzapine [From Zyprexa] Allergy Mild RICHARD Verified 01/12/22 14:29 quetiapine [From Seroquel] Allergy Mild SWELLING Verified 01/12/22 14:29 WHOLE BODY, RICHARD topiramate [From TOPAMAX] Allergy Unknown RICHARD, SI Verified 01/12/22 14:29 trazodone [TRAZODONE] Allergy Unknown SYNCOPE Verified 01/12/22 14:29 aripiprazole [From ABILIFY] AdvReac Severe EXTREME SI Verified 01/12/22 14:29 lamotrigine [From Lamictal] AdvReac Mild RICHARD Verified 01/12/22 14:29 modafinil [From Provigil] AdvReac Mild RICHARD Verified 01/12/22 14:29 ALL ANTI DEPRESSENTS Allergy Unknown I GO Uncoded 01/12/22 14:29 MANIC All anti-depressants Allergy Unknown manic, rash Uncoded 01/12/22 14:29 From GEODON Allergy Unknown LETHARGY Uncoded 01/12/22 14:29 From WELLBUTRIN AdvReac Unknown AGITATION, Uncoded 01/12/22 14:29 MAVIS Assessment & Plan Assessment & Plan (1) Cognitive impairment: Status: Acute Code(s): R41.89 - Other symptoms and signs involving cognitive functions and awareness (2) Schizoaffective disorder, bipolar type: Status: Acute Code(s): F25.0 - Schizoaffective disorder, bipolar type Plan Admit to inpatient psychiatry [facility] Minimize anticholinergics, antihistamines, benzodiazepines Group therapy Diagnostic clarification Disposition planning Continue treatment for UTI 02/15: Encourage out of bed. Continue treatment plan. 02/16 Imodium for diarrhea. Monitor for any worsening in GI sx. Cdiff (patient on Abx) 02/18/22: Family meeting 02/20 2pm 02/19 continue current medications. 02/20/22 Continue current plan. Probable discharge early next week. I spent minutes with the patient and/or on the patient floor today, greater than?50% of which was spent counseling/coordinating care. Patient educated on: therapeutic strategies Guardian/Caregiver educated on: medication risk/benefits, therapeutic strategies and other Informed Consent: does not understand Reason for contiued inpatient stay Substantial Risk for: inability to function, rapid decompensation and med/psych decompensation
[2022-02-20 19:45] VITALS: BP 137/83; PULSE 72
[2022-02-20] MEDS: Sennosides 8.6 MG TABLET PO (20:04)
[2022-02-21 06:37] LABS: Glucose, Whole Blood 115 mg/dL (60-115)
[2022-02-21 08:08] VITALS: BP 113/60; PULSE 65; TEMP 36.4; O2SAT 93
[2022-02-21] MEDS: NaPROXEN 500 MG TABLET PO ×2 (08:42→20:07)
[2022-02-21] MEDS: lisinopriL 10 MG TABLET 30 MG PO (08:42)
[2022-02-21] MEDS: Benztropine Mesylate 0.5 MG TABLET PO ×2 (08:43→20:07)
[2022-02-21] MEDS: metFORMIN HCl ER 500 MG TAB.ER.24H 1000 MG PO (08:43)
[2022-02-21] MEDS: Aspirin Enteric Coated 81 MG TABLET.DR PO (08:43)
[2022-02-21] MEDS: SITagliptin Phosphate 100 MG TABLET PO (08:43)
[2022-02-21] MEDS: Atorvastatin Calcium 20 MG TABLET PO (08:43)
[2022-02-21] MEDS: Gabapentin 100 MG CAPSULE PO ×2 (08:43→20:08)
[2022-02-21] MEDS: Propranolol HCL 20 MG TABLET PO ×3 (08:43→20:06)
[2022-02-21] MEDS: Memantine HCl 5 MG TABLET PO ×2 (08:43→20:08)
[2022-02-21] MEDS: amLODIPine Besylate 5 MG TABLET PO (08:49)
[2022-02-21 09:16] LABS: Estimated Glomerular Filt Rate > 60
--- NOTE | 2022-02-21 16:45 | HO.PSYCHPN ---
Subjective Subjective Date of Service: 02/22/22 Reason For Visit: psychosis Subjective Notes: Conditional Voluntary Healthcare Proxy: No Guardianship: No Medical Problems Affecting Mental Status: No Interim History: Continues to question Klonopin tapering. Discussed initial admission taper, and review of taper with PCP/per daughter's list of meds. Pt wanting to return to her tid regime. Education provided regarding fall risk and enhancing sx of dementia with this agent. Pt verbalized understanding. Medication Compliance: Yes Side effects from medications: No Attending Groups: Yes Review of Systems Acute medical concerns: No Medical Review of Systems: unchanged Review of Systems Psychiatric: Reports no additional psychiatric complaints Mental Status Exam Mental Status Exam Patient Appearance: Appropriate Patient Orientation: Person and Place Level of Consciousness: Alert Patient Behavior: Talkative, Cooperative and Good Eye Contact Mood Description: Calm Affect Description: Calm Patient Cognition Impaired: Yes Ability to Follow Directions: Good Speech Pattern: Impoverished, Spontaneous Speech, Soft-Spoken and Cofabulation (mild) Memory Description: Remote Impaired and Short Term Intact Hallucinations: None Delusions: Not Present Thought Process: Distracted (mild) Thought Content: positive for [place] and positive for Suicidal Ideation (denies) Abnormal Motor Activity Signs and Symptoms: Agitation (brief period around klonopin issues) Judgement: Fair Diagnostics Vital Signs (24Hr): Vital Signs - 24 hr 02/20/22 19:45 02/21/22 08:08 Temperature 97.5 F Pulse Rate 72 65 Blood Pressure 137/83 113/60 Pulse Oximetry 93 BMI result Body Mass Index 35.3 Labs Results: 02/11/22 20:03 02/21/22 08:51 Labs: Laboratory Results - last 48 hr 02/21/22 02/21/22 06:31 08:51 Creatinine 0.92 Estim Creat Clear Calc 66.0 Estimated GFR > 60 POC Glucose 115 Medications Medications Current Medications Acetaminophen (Acetaminophen 325 Mg Tablet) 650 mg PO Q6H PRN PRN Reason: Headache/Pain Mild Scale (1-3) Last Admin: 02/16/22 19:28 Dose: 650 mg Documented by: Al Hydroxide/Mg Hydroxide (Magnesium Hydrox/Alum Hydrox 30 Ml Oral.Susp) 30 ml PO Q6H PRN PRN Reason: Heartburn/Nausea Amlodipine Besylate (Amlodipine Besylate 5 Mg Tablet) 5 mg PO DAILY [facility]; Protocol Last Admin: 02/21/22 08:49 Dose: 5 mg Documented by: Aspirin (Aspirin Enteric Coated 81 Mg Tablet.) 81 mg PO DAILY [facility] Last Admin: 02/21/22 08:43 Dose: 81 mg Documented by: Atorvastatin Calcium (Atorvastatin Calcium 20 Mg Tablet) 20 mg PO DAILY [facility] Last Admin: 02/21/22 08:43 Dose: 20 mg Documented by: Benztropine Mesylate (Benztropine Mesylate 0.5 Mg Tablet) 0.5 mg PO BID@0830,2100 [facility] Last Admin: 02/21/22 08:43 Dose: 0.5 mg Documented by: Gabapentin (Gabapentin 100 Mg Capsule) 100 mg PO BID [facility] Last Admin: 02/21/22 08:43 Dose: 100 mg Documented by: Hydroxyzine HCl (Hydroxyzine Hcl 25 Mg Tablet) 25 mg PO BEDTIME PRN PRN Reason: Anxiety Lisinopril (Lisinopril 10 Mg Tablet) 30 mg PO DAILY [facility]; Protocol Last Admin: 02/21/22 08:42 Dose: 30 mg Documented by: Loperamide HCl (Loperamide Hcl 2 Mg Capsule) 2 mg PO Q4H PRN PRN Reason: Diarrhea Last Admin: 02/20/22 12:26 Dose: 2 mg Documented by: Magnesium Hydroxide (Milk Of Magnesia 30 Ml Oral.Susp) 30 ml PO DAILY PRN PRN Reason: Constipation Meclizine HCl (Meclizine Hcl 25 Mg Tablet) 25 mg PO DAILY PRN PRN Reason: vertigo Memantine (Memantine Hcl 5 Mg Tablet) 5 mg PO BID [facility] Last Admin: 02/21/22 08:43 Dose: 5 mg Documented by: Metformin HCl (Metformin Hcl Er 500 Mg Tab.Er.24h) 1,000 mg PO BID [facility] Last Admin: 02/21/22 08:43 Dose: 1,000 mg Documented by: Naproxen (Naproxen 500 Mg Tablet) 500 mg PO BID [facility] Last Admin: 02/21/22 08:42 Dose: 500 mg Documented by: Pt Own Med (Darifenacin 7.5 Mg) 7.5 mg PO DAILY [facility] Last Admin: 02/21/22 08:41 Dose: 7.5 mg Documented by: Pt Own Med (Loxapine Succinate 10 Mg Capsule) 10 mg PO BID [facility] Last Admin: 02/21/22 08:42 Dose: 10 mg Documented by: Patient Own Med ( Loxapine Succinate 5 Mg) 15 mg PO BEDTIME [facility] Last Admin: 02/20/22 20:07 Dose: Not Given Documented by: Promethazine HCl (Promethazine Hcl 25 Mg Tablet) 25 mg PO TID PRN PRN Reason: Allergic Symptoms Propranolol HCl (Propranolol Hcl 20 Mg Tablet) 20 mg PO TID [facility]; Protocol Last Admin: 02/21/22 14:30 Dose: 20 mg Documented by: Senna (Sennosides 8.6 Mg Tablet) 8.6 mg PO BEDTIME [facility] Last Admin: 02/20/22 20:04 Dose: 8.6 mg Documented by: Sitagliptin Phosphate (Sitagliptin Phosphate 100 Mg Tablet) 100 mg PO DAILY [facility] Last Admin: 02/21/22 08:43 Dose: 100 mg Documented by: Allergies Allergies Allergy/AdvReac Type Severity Reaction Status Date / Time haloperidol [HALOPERIDOL] Allergy Intermediate SWELLING Verified 01/12/22 14:29 carbamazepine [From Tegretol] Allergy Mild RASH, Verified 01/12/22 14:29 TREMORS lithium [[place]] Allergy Mild RASH, Verified 01/12/22 14:29 CRAWLING OUT OF SKIN olanzapine [From Zyprexa] Allergy Mild RICHARD Verified 01/12/22 14:29 quetiapine [From Seroquel] Allergy Mild SWELLING Verified 01/12/22 14:29 WHOLE BODY, RICHARD topiramate [From TOPAMAX] Allergy Unknown RICHARD, SI Verified 01/12/22 14:29 trazodone [TRAZODONE] Allergy Unknown SYNCOPE Verified 01/12/22 14:29 aripiprazole [From ABILIFY] AdvReac Severe EXTREME SI Verified 01/12/22 14:29 lamotrigine [From Lamictal] AdvReac Mild RICHARD Verified 01/12/22 14:29 modafinil [From Provigil] AdvReac Mild RICHARD Verified 01/12/22 14:29 ALL ANTI DEPRESSENTS Allergy Unknown I GO Uncoded 01/12/22 14:29 MANIC All anti-depressants Allergy Unknown manic, rash Uncoded 01/12/22 14:29 From GEODON Allergy Unknown LETHARGY Uncoded 01/12/22 14:29 From WELLBUTRIN AdvReac Unknown AGITATION, Uncoded 01/12/22 14:29 MAVIS Assessment & Plan Assessment & Plan (1) Cognitive impairment: Status: Acute Code(s): R41.89 - Other symptoms and signs involving cognitive functions and awareness (2) Schizoaffective disorder, bipolar type: Status: Acute Code(s): F25.0 - Schizoaffective disorder, bipolar type Plan Admit to inpatient psychiatry [facility] anticholinergics, antihistamines, benzodiazepines Group therapy Diagnostic clarification Disposition planning Continue treatment for UTI 02/15: Encourage out of bed. Continue treatment plan. 02/16 Imodium for diarrhea. Monitor for any worsening in GI sx. Cdiff (patient on Abx) 02/18/22: Family meeting 02/20 2pm 02/19 continue current medications. 02/20/22 Continue current plan. Probable discharge early next week. 02/22/22- [place] 0.5 mb tid I spent minutes with the patient and/or on the patient floor today, greater than?50% of which was spent counseling/coordinating care. Patient educated on: medication risk/benefits Informed Consent: further education needed Reason for contiued inpatient stay Substantial Risk for: harm to self, inability to function and rapid decompensation
[2022-02-21] MEDS: hydrOXYzine HCL 25 MG TABLET PO (19:13)
[2022-02-21 19:45] VITALS: BP 134/89; PULSE 70; RESP 22
[2022-02-21] MEDS: clonazePAM 0.5 MG TABLET PO (20:07)
[2022-02-21] MEDS: Sennosides 8.6 MG TABLET PO (20:08)
[2022-02-22 06:00] VITALS: BP 161/86; PULSE 67; RESP 18; TEMP 37.1; O2SAT 94
[2022-02-22 06:35] LABS: Glucose, Whole Blood 103 mg/dL (60-115)
[2022-02-22] MEDS: Benztropine Mesylate 0.5 MG TABLET PO ×2 (09:51→20:34)
[2022-02-22] MEDS: amLODIPine Besylate 5 MG TABLET PO (09:52)
[2022-02-22] MEDS: Aspirin Enteric Coated 81 MG TABLET.DR PO (09:52)
[2022-02-22] MEDS: clonazePAM 0.5 MG TABLET PO ×3 (09:53→20:33)
[2022-02-22] MEDS: Atorvastatin Calcium 20 MG TABLET PO (09:53)
[2022-02-22] MEDS: lisinopriL 10 MG TABLET 30 MG PO (09:54)
[2022-02-22] MEDS: Gabapentin 100 MG CAPSULE PO ×2 (09:54→20:32)
[2022-02-22] MEDS: NaPROXEN 500 MG TABLET PO ×2 (09:56→20:32)
[2022-02-22] MEDS: Memantine HCl 5 MG TABLET PO ×2 (09:56→20:33)
[2022-02-22] MEDS: Propranolol HCL 20 MG TABLET PO ×3 (09:58→20:34)
[2022-02-22] MEDS: SITagliptin Phosphate 100 MG TABLET PO (09:58)
[2022-02-22] MEDS: metFORMIN HCl ER 500 MG TAB.ER.24H 1000 MG PO ×2 (10:03→20:33)
[2022-02-22] MEDS: Loperamide HCl 2 MG CAPSULE PO (10:11)
--- NOTE | 2022-02-22 10:48 | P.PNPSI_ITS ---
Subjective Subjective Date of Service: 02/21/22 Reason For Visit: psychosis Interim History: Reports she is feeling well. Remains with some confusion and short term memory loss. Denies questions regarding medications. Planning to watch her daughter's bridal shower on face time with on 02/22. Medication Compliance: Yes Side effects from medications: No Attending Groups: Intermittent Review of Systems Acute medical concerns: No Medical Review of Systems: unchanged Mental Status Exam Mental Status Exam Patient Appearance: Appropriate Patient Orientation: Person and Place Level of Consciousness: Alert Patient Behavior: Talkative, Cooperative and Good Eye Contact Mood Description: Calm Affect Description: Calm Patient Cognition Impaired: Yes Ability to Follow Directions: Good Speech Pattern: Impoverished, Spontaneous Speech, Soft-Spoken and Cofabulation (mild) Memory Description: Remote Impaired and Short Term Intact Hallucinations: None Delusions: Not Present Thought Process: Distracted (mild) Thought Content: positive for [place] and positive for Suicidal Ideation (denies) Judgement: Fair Diagnostics Vital Signs (24Hr): Vital Signs - 24 hr 02/21/22 19:45 Pulse Rate 70 Respiratory Rate 22 H Blood Pressure 134/89 BMI result Body Mass Index 35.3 Labs Results: 02/11/22 20:03 02/21/22 08:51 Labs: Laboratory Results - last 48 hr 02/21/22 02/21/22 02/22/22 06:31 08:51 06:31 Creatinine 0.92 Estim Creat Clear Calc 66.0 Estimated GFR > 60 POC Glucose 115 103 Medications Medications Current Medications Acetaminophen (Acetaminophen 325 Mg Tablet) 650 mg PO Q6H PRN PRN Reason: Headache/Pain Mild Scale (1-3) Last Admin: 02/16/22 19:28 Dose: 650 mg Documented by: Al Hydroxide/Mg Hydroxide (Magnesium Hydrox/Alum Hydrox 30 Ml Oral.Susp) 30 ml PO Q6H PRN PRN Reason: Heartburn/Nausea Amlodipine Besylate (Amlodipine Besylate 5 Mg Tablet) 5 mg PO DAILY [facility]; Protocol Last Admin: 02/22/22 09:52 Dose: 5 mg Documented by: Aspirin (Aspirin Enteric Coated 81 Mg Tablet.) 81 mg PO DAILY [facility] Last Admin: 02/22/22 09:52 Dose: 81 mg Documented by: Atorvastatin Calcium (Atorvastatin Calcium 20 Mg Tablet) 20 mg PO DAILY [facility] Last Admin: 02/22/22 09:53 Dose: 20 mg Documented by: Benztropine Mesylate (Benztropine Mesylate 0.5 Mg Tablet) 0.5 mg PO BID@0830,2100 [facility] Last Admin: 02/22/22 09:51 Dose: 0.5 mg Documented by: Clonazepam (Clonazepam 0.5 Mg Tablet) 0.5 mg PO BID [facility] Last Admin: 02/22/22 09:53 Dose: 0.5 mg Documented by: Gabapentin (Gabapentin 100 Mg Capsule) 100 mg PO BID [facility] Last Admin: 02/22/22 09:54 Dose: 100 mg Documented by: Hydroxyzine HCl (Hydroxyzine Hcl 25 Mg Tablet) 25 mg PO BEDTIME PRN PRN Reason: Anxiety Last Admin: 02/21/22 19:13 Dose: 25 mg Documented by: Lisinopril (Lisinopril 10 Mg Tablet) 30 mg PO DAILY [facility]; Protocol Last Admin: 02/22/22 09:54 Dose: 30 mg Documented by: Loperamide HCl (Loperamide Hcl 2 Mg Capsule) 2 mg PO Q4H PRN PRN Reason: Diarrhea Last Admin: 02/22/22 10:11 Dose: 2 mg Documented by: Magnesium Hydroxide (Milk Of Magnesia 30 Ml Oral.Susp) 30 ml PO DAILY PRN PRN Reason: Constipation Meclizine HCl (Meclizine Hcl 25 Mg Tablet) 25 mg PO DAILY PRN PRN Reason: vertigo Memantine (Memantine Hcl 5 Mg Tablet) 5 mg PO BID [facility] Last Admin: 02/22/22 09:56 Dose: 5 mg Documented by: Metformin HCl (Metformin Hcl Er 500 Mg Tab.Er.24h) 1,000 mg PO BID [facility] Last Admin: 02/22/22 10:03 Dose: 1,000 mg Documented by: Naproxen (Naproxen 500 Mg Tablet) 500 mg PO BID [facility] Last Admin: 02/22/22 09:56 Dose: 500 mg Documented by: Pt Own Med (Darifenacin 7.5 Mg) 7.5 mg PO DAILY [facility] Last Admin: 02/22/22 09:53 Dose: 7.5 mg Documented by: Pt Own Med (Loxapine Succinate 10 Mg Capsule) 10 mg PO BID [facility] Last Admin: 02/22/22 09:55 Dose: 10 mg Documented by: Patient Own Med ( Loxapine Succinate 5 Mg) 15 mg PO BEDTIME [facility] Last Admin: 02/21/22 20:09 Dose: 15 mg Documented by: Promethazine HCl (Promethazine Hcl 25 Mg Tablet) 25 mg PO TID PRN PRN Reason: Allergic Symptoms Propranolol HCl (Propranolol Hcl 20 Mg Tablet) 20 mg PO TID [facility]; Protocol Last Admin: 02/22/22 09:58 Dose: 20 mg Documented by: Senna (Sennosides 8.6 Mg Tablet) 8.6 mg PO BEDTIME [facility] Last Admin: 02/21/22 20:08 Dose: 8.6 mg Documented by: Sitagliptin Phosphate (Sitagliptin Phosphate 100 Mg Tablet) 100 mg PO DAILY [facility] Last Admin: 02/22/22 09:58 Dose: 100 mg Documented by: Allergies Allergies Allergy/AdvReac Type Severity Reaction Status Date / Time haloperidol [HALOPERIDOL] Allergy Intermediate SWELLING Verified 01/12/22 14:29 carbamazepine [From Tegretol] Allergy Mild RASH, Verified 01/12/22 14:29 TREMORS lithium [[place]] Allergy Mild RASH, Verified 01/12/22 14:29 CRAWLING OUT OF SKIN olanzapine [From Zyprexa] Allergy Mild RICHARD Verified 01/12/22 14:29 quetiapine [From Seroquel] Allergy Mild SWELLING Verified 01/12/22 14:29 WHOLE BODY, RICHARD topiramate [From TOPAMAX] Allergy Unknown RICHARD, SI Verified 01/12/22 14:29 trazodone [TRAZODONE] Allergy Unknown SYNCOPE Verified 01/12/22 14:29 aripiprazole [From ABILIFY] AdvReac Severe EXTREME SI Verified 01/12/22 14:29 lamotrigine [From Lamictal] AdvReac Mild RICHARD Verified 01/12/22 14:29 modafinil [From Provigil] AdvReac Mild RICHARD Verified 01/12/22 14:29 ALL ANTI DEPRESSENTS Allergy Unknown I GO Uncoded 01/12/22 14:29 MANIC All anti-depressants Allergy Unknown manic, rash Uncoded 01/12/22 14:29 From GEODON Allergy Unknown LETHARGY Uncoded 01/12/22 14:29 From WELLBUTRIN AdvReac Unknown AGITATION, Uncoded 01/12/22 14:29 MAVIS Assessment & Plan Assessment & Plan (1) Cognitive impairment: Status: Acute Code(s): R41.89 - Other symptoms and signs involving cognitive functions and awareness (2) Schizoaffective disorder, bipolar type: Status: Acute Code(s): F25.0 - Schizoaffective disorder, bipolar type Plan Admit to inpatient psychiatry [facility] anticholinergics, antihistamines, benzodiazepines Group therapy Diagnostic clarification Disposition planning Continue treatment for UTI 02/15: Encourage out of bed. Continue treatment plan. 02/16 Imodium for diarrhea. Monitor for any worsening in GI sx. Cdiff (patient on Abx) 02/18/22: Family meeting 02/20 2pm 02/19 continue current medications. 02/20/22 Continue current plan. Probable discharge early next week. 02/21/22 Klonopin restarted at 0.5 mg bid per pt request. I spent minutes with the patient and/or on the patient floor today, greater than?50% of which was spent counseling/coordinating care. Patient educated on: medication risk/benefits Informed Consent: further education needed Reason for contiued inpatient stay Substantial Risk for: inability to function and rapid decompensation
[2022-02-22] MEDS: Promethazine HCL 25 MG TABLET PO (14:11)
[2022-02-22] MEDS: hydrOXYzine HCL 25 MG TABLET PO (14:12)
[2022-02-22 18:00] VITALS: BP 104/71; PULSE 68; TEMP 36.4; O2SAT 98
[2022-02-22] MEDS: Sennosides 8.6 MG TABLET PO (20:33)
[2022-02-23 06:00] VITALS: BP 140/88; PULSE 88; RESP 14; TEMP 36.6; O2SAT 94
[2022-02-23 06:12] LABS: Glucose, Whole Blood 105 mg/dL (60-115)
[2022-02-23] MEDS: NaPROXEN 500 MG TABLET PO ×2 (08:29→21:49)
[2022-02-23] MEDS: metFORMIN HCl ER 500 MG TAB.ER.24H 1000 MG PO ×2 (08:29→21:47)
[2022-02-23] MEDS: Aspirin Enteric Coated 81 MG TABLET.DR PO (08:29)
[2022-02-23] MEDS: amLODIPine Besylate 5 MG TABLET PO (08:29)
[2022-02-23] MEDS: SITagliptin Phosphate 100 MG TABLET PO (08:29)
[2022-02-23] MEDS: Gabapentin 100 MG CAPSULE PO ×2 (08:29→21:47)
[2022-02-23] MEDS: clonazePAM 0.5 MG TABLET PO ×3 (08:30→21:48)
[2022-02-23] MEDS: lisinopriL 10 MG TABLET 30 MG PO (08:30)
[2022-02-23] MEDS: Propranolol HCL 20 MG TABLET PO ×3 (08:30→21:49)
[2022-02-23] MEDS: Atorvastatin Calcium 20 MG TABLET PO (08:30)
[2022-02-23] MEDS: Memantine HCl 5 MG TABLET PO ×2 (08:30→21:50)
[2022-02-23] MEDS: Benztropine Mesylate 0.5 MG TABLET PO ×2 (08:30→21:48)
--- NOTE | 2022-02-23 13:19 | P.PNPSI_ITS ---
Subjective Subjective Date of Service: 02/23/22 Reason For Visit: psychosis Subjective Notes: Conditional Voluntary Healthcare Proxy: No Guardianship: No Medical Problems Affecting Mental Status: No Interim History: Pt with ST memory impairment. Asking about discharge-planning for 02/25. She is in agreement. Discussed Klonopin and risks for memory impairment. Medication Compliance: Yes Side effects from medications: No Attending Groups: Yes Review of Systems Acute medical concerns: No Medical Review of Systems: unchanged Review of Systems Reports confusion Psychiatric: Reports anxiety and Reports confusion Mental Status Exam Mental Status Exam Patient Appearance: Appropriate Patient Orientation: Person and Place Level of Consciousness: Alert Patient Behavior: Talkative, Cooperative and Good Eye Contact Mood Description: Calm Affect Description: Calm Patient Cognition Impaired: Yes Ability to Follow Directions: Good Speech Pattern: Impoverished, Spontaneous Speech, Soft-Spoken and Cofabulation (mild) Memory Description: Remote Impaired, Episodic Impaired and Recent Impaired Hallucinations: None Delusions: Not Present Thought Process: Distracted (mild) Thought Content: positive for [place] and positive for Suicidal Ideation (denies) Judgement: Fair Diagnostics Vital Signs (24Hr): Vital Signs - 24 hr 02/22/22 18:00 02/23/22 06:00 Temperature 97.6 F 98 F Pulse Rate 68 88 Respiratory Rate 14 Blood Pressure 104/71 140/88 H Pulse Oximetry 98 94 BMI result Body Mass Index 35.3 Labs Results: 02/11/22 20:03 02/21/22 08:51 Labs: Laboratory Results - last 48 hr 02/22/22 02/23/22 06:31 06:05 POC Glucose 103 105 Medications Medications Current Medications Acetaminophen (Acetaminophen 325 Mg Tablet) 650 mg PO Q6H PRN PRN Reason: Headache/Pain Mild Scale (1-3) Last Admin: 02/16/22 19:28 Dose: 650 mg Documented by: Al Hydroxide/Mg Hydroxide (Magnesium Hydrox/Alum Hydrox 30 Ml Oral.Susp) 30 ml PO Q6H PRN PRN Reason: Heartburn/Nausea Amlodipine Besylate (Amlodipine Besylate 5 Mg Tablet) 5 mg PO DAILY [facility]; Protocol Last Admin: 02/23/22 08:29 Dose: 5 mg Documented by: Aspirin (Aspirin Enteric Coated 81 Mg Tablet.) 81 mg PO DAILY [facility] Last Admin: 02/23/22 08:29 Dose: 81 mg Documented by: Atorvastatin Calcium (Atorvastatin Calcium 20 Mg Tablet) 20 mg PO DAILY [facility] Last Admin: 02/23/22 08:30 Dose: 20 mg Documented by: Benztropine Mesylate (Benztropine Mesylate 0.5 Mg Tablet) 0.5 mg PO BID@0830,2100 [facility] Last Admin: 02/23/22 08:30 Dose: 0.5 mg Documented by: Clonazepam (Clonazepam 0.5 Mg Tablet) 0.5 mg PO TID [facility] Last Admin: 02/23/22 08:30 Dose: 0.5 mg Documented by: Gabapentin (Gabapentin 100 Mg Capsule) 100 mg PO BID [facility] Last Admin: 02/23/22 08:29 Dose: 100 mg Documented by: Hydroxyzine HCl (Hydroxyzine Hcl 25 Mg Tablet) 25 mg PO BEDTIME PRN PRN Reason: Anxiety Last Admin: 02/22/22 14:12 Dose: 25 mg Documented by: Lisinopril (Lisinopril 10 Mg Tablet) 30 mg PO DAILY [facility]; Protocol Last Admin: 02/23/22 08:30 Dose: 30 mg Documented by: Loperamide HCl (Loperamide Hcl 2 Mg Capsule) 2 mg PO Q4H PRN PRN Reason: Diarrhea Last Admin: 02/22/22 10:11 Dose: 2 mg Documented by: Magnesium Hydroxide (Milk Of Magnesia 30 Ml Oral.Susp) 30 ml PO DAILY PRN PRN Reason: Constipation Meclizine HCl (Meclizine Hcl 25 Mg Tablet) 25 mg PO DAILY PRN PRN Reason: vertigo Memantine (Memantine Hcl 5 Mg Tablet) 5 mg PO BID [facility] Last Admin: 02/23/22 08:30 Dose: 5 mg Documented by: Metformin HCl (Metformin Hcl Er 500 Mg Tab.Er.24h) 1,000 mg PO BID [facility] Last Admin: 02/23/22 08:29 Dose: 1,000 mg Documented by: Naproxen (Naproxen 500 Mg Tablet) 500 mg PO BID [facility] Last Admin: 02/23/22 08:29 Dose: 500 mg Documented by: Pt Own Med (Darifenacin 7.5 Mg) 7.5 mg PO DAILY [facility] Last Admin: 02/23/22 09:00 Dose: 7.5 mg Documented by: Pt Own Med (Loxapine Succinate 10 Mg Capsule) 10 mg PO BID [facility] Last Admin: 02/23/22 09:00 Dose: 10 mg Documented by: Patient Own Med ( Loxapine Succinate 5 Mg) 15 mg PO BEDTIME [facility] Last Admin: 02/22/22 20:37 Dose: 15 mg Documented by: Promethazine HCl (Promethazine Hcl 25 Mg Tablet) 25 mg PO TID PRN PRN Reason: Allergic Symptoms Last Admin: 02/22/22 14:11 Dose: 25 mg Documented by: Propranolol HCl (Propranolol Hcl 20 Mg Tablet) 20 mg PO TID [facility]; Protocol Last Admin: 02/23/22 08:30 Dose: 20 mg Documented by: Senna (Sennosides 8.6 Mg Tablet) 8.6 mg PO BEDTIME [facility] Last Admin: 02/22/22 20:33 Dose: 8.6 mg Documented by: Sitagliptin Phosphate (Sitagliptin Phosphate 100 Mg Tablet) 100 mg PO DAILY [facility] Last Admin: 02/23/22 08:29 Dose: 100 mg Documented by: Allergies Allergies Allergy/AdvReac Type Severity Reaction Status Date / Time haloperidol [HALOPERIDOL] Allergy Intermediate SWELLING Verified 01/12/22 14:29 carbamazepine [From Tegretol] Allergy Mild RASH, Verified 01/12/22 14:29 TREMORS lithium [[place]] Allergy Mild RASH, Verified 01/12/22 14:29 CRAWLING OUT OF SKIN olanzapine [From Zyprexa] Allergy Mild RICHARD Verified 01/12/22 14:29 quetiapine [From Seroquel] Allergy Mild SWELLING Verified 01/12/22 14:29 WHOLE BODY, RICHARD topiramate [From TOPAMAX] Allergy Unknown RICHARD, SI Verified 01/12/22 14:29 trazodone [TRAZODONE] Allergy Unknown SYNCOPE Verified 01/12/22 14:29 aripiprazole [From ABILIFY] AdvReac Severe EXTREME SI Verified 01/12/22 14:29 lamotrigine [From Lamictal] AdvReac Mild RICHARD Verified 01/12/22 14:29 modafinil [From Provigil] AdvReac Mild RICHARD Verified 01/12/22 14:29 ALL ANTI DEPRESSENTS Allergy Unknown I GO Uncoded 01/12/22 14:29 MANIC All anti-depressants Allergy Unknown manic, rash Uncoded 01/12/22 14:29 From GEODON Allergy Unknown LETHARGY Uncoded 01/12/22 14:29 From WELLBUTRIN AdvReac Unknown AGITATION, Uncoded 01/12/22 14:29 MAVIS Assessment & Plan Assessment & Plan (1) Cognitive impairment: Status: Acute Code(s): R41.89 - Other symptoms and signs involving cognitive functions and awareness (2) Schizoaffective disorder, bipolar type: Status: Acute Code(s): F25.0 - Schizoaffective disorder, bipolar type Plan Admit to inpatient psychiatry Collaterals Minimize anticholinergics, antihistamines, benzodiazepines Group therapy Diagnostic clarification Disposition planning Continue treatment for UTI 02/15: Encourage out of bed. Continue treatment plan. 02/16 Imodium for diarrhea. Monitor for any worsening in GI sx. Cdiff (patient on Abx) 02/18/22: Family meeting 02/20 2pm 02/19 continue current medications. 02/20/22 Continue current plan. Probable discharge early next week. 02/22/22- Klonopin 0.5 mb tid 02/23/22- Discharge planning for 02/25/22 I spent minutes with the patient and/or on the patient floor today, great er than?50% of which was spent counseling/coordinating care. Patient educated on: medication risk/benefits and therapeutic strategies Informed Consent: further education needed Reason for contiued inpatient stay Substantial Risk for: inability to function and rapid decompensation
[2022-02-23 16:25] VITALS: BP 127/83; PULSE 66; TEMP 35.9
[2022-02-23 21:30] VITALS: BP 133/77; PULSE 65; TEMP 36.4
[2022-02-23] MEDS: Loperamide HCl 2 MG CAPSULE PO (21:56)
[2022-02-24 06:00] VITALS: BP 124/70; PULSE 65; RESP 18
[2022-02-24 06:53] LABS: Glucose, Whole Blood 106 mg/dL (60-115)
[2022-02-24] MEDS: metFORMIN HCl ER 500 MG TAB.ER.24H 1000 MG PO ×2 (08:02→20:54)
[2022-02-24] MEDS: Atorvastatin Calcium 20 MG TABLET PO (08:02)
[2022-02-24] MEDS: NaPROXEN 500 MG TABLET PO ×2 (08:02→20:53)
[2022-02-24] MEDS: clonazePAM 0.5 MG TABLET PO ×3 (08:03→20:53)
[2022-02-24] MEDS: Aspirin Enteric Coated 81 MG TABLET.DR PO (08:03)
[2022-02-24] MEDS: SITagliptin Phosphate 100 MG TABLET PO (08:03)
[2022-02-24] MEDS: Benztropine Mesylate 0.5 MG TABLET PO ×2 (08:04→20:53)
[2022-02-24] MEDS: Memantine HCl 5 MG TABLET PO ×2 (08:04→20:54)
[2022-02-24] MEDS: Gabapentin 100 MG CAPSULE PO ×2 (08:04→20:54)
[2022-02-24] MEDS: Propranolol HCL 20 MG TABLET PO ×3 (08:34→20:54)
[2022-02-24] MEDS: lisinopriL 10 MG TABLET 30 MG PO (08:35)
[2022-02-24] MEDS: amLODIPine Besylate 5 MG TABLET PO (08:35)
[2022-02-24 14:02] VITALS: BP 133/78; PULSE 65; RESP 18
--- NOTE | 2022-02-24 17:08 | HO.PSYCHPN ---
Subjective Subjective Date of Service: 02/24/22 Reason For Visit: psychosis Subjective Notes: Conditional Voluntary Healthcare Proxy: Yes Guardianship: No Medical Problems Affecting Mental Status: No Interim History: Mouna is visable in the milieu, interactive with peers and team, attending groups. She is excited to discharge on 02/25 as she is looking forward to family events prior to her daughter's wedding in May. Today she discussed her dementia diagnosis and asked appropriate questions regarding treatment and prognosis. She reports no symptoms of depression and anxiety today. Medication Compliance: Yes Side effects from medications: No Attending Groups: Yes Review of Systems Acute medical concerns: No Medical Review of Systems: unchanged Review of Systems Reports confusion Psychiatric: Reports confusion Mental Status Exam Mental Status Exam Patient Appearance: Appropriate Patient Orientation: Person and Place Level of Consciousness: Alert Patient Behavior: Talkative, Cooperative and Good Eye Contact Mood Description: Calm Affect Description: Calm Patient Cognition Impaired: Yes Ability to Follow Directions: Good Speech Pattern: Impoverished, Spontaneous Speech, Soft-Spoken and Cofabulation (mild) Memory Description: Remote Impaired, Episodic Impaired and Recent Impaired Hallucinations: None Delusions: Not Present Thought Process: Distracted (mild) Thought Content: positive for [place] and positive for Suicidal Ideation (denies) Judgement: Fair Diagnostics Vital Signs (24Hr): Vital Signs - 24 hr 02/23/22 21:30 02/24/22 06:00 02/24/22 14:02 Temperature 97.5 F Pulse Rate 65 65 65 Respiratory Rate 18 18 Blood Pressure 133/77 124/70 133/78 BMI result Body Mass Index 35.3 Labs Results: 02/11/22 20:03 02/21/22 08:51 Labs: Laboratory Results - last 48 hr 02/23/22 02/24/22 06:05 06:38 POC Glucose 105 106 Medications Medications Current Medications Acetaminophen (Acetaminophen 325 Mg Tablet) 650 mg PO Q6H PRN PRN Reason: Headache/Pain Mild Scale (1-3) Last Admin: 02/16/22 19:28 Dose: 650 mg Documented by: Al Hydroxide/Mg Hydroxide (Magnesium Hydrox/Alum Hydrox 30 Ml Oral.Susp) 30 ml PO Q6H PRN PRN Reason: Heartburn/Nausea Amlodipine Besylate (Amlodipine Besylate 5 Mg Tablet) 5 mg PO DAILY [facility]; Protocol Last Admin: 02/24/22 08:35 Dose: 5 mg Documented by: Aspirin (Aspirin Enteric Coated 81 Mg Tablet.) 81 mg PO DAILY [facility] Last Admin: 02/24/22 08:03 Dose: 81 mg Documented by: Atorvastatin Calcium (Atorvastatin Calcium 20 Mg Tablet) 20 mg PO DAILY [facility] Last Admin: 02/24/22 08:02 Dose: 20 mg Documented by: Benztropine Mesylate (Benztropine Mesylate 0.5 Mg Tablet) 0.5 mg PO BID@0830,2100 [facility] Last Admin: 02/24/22 08:04 Dose: 0.5 mg Documented by: Clonazepam (Clonazepam 0.5 Mg Tablet) 0.5 mg PO TID [facility] Last Admin: 02/24/22 14:05 Dose: 0.5 mg Documented by: Gabapentin (Gabapentin 100 Mg Capsule) 100 mg PO BID [facility] Last Admin: 02/24/22 08:04 Dose: 100 mg Documented by: Hydroxyzine HCl (Hydroxyzine Hcl 25 Mg Tablet) 25 mg PO BEDTIME PRN PRN Reason: Anxiety Last Admin: 02/22/22 14:12 Dose: 25 mg Documented by: Lisinopril (Lisinopril 10 Mg Tablet) 30 mg PO DAILY [facility]; Protocol Last Admin: 02/24/22 08:35 Dose: 30 mg Documented by: Loperamide HCl (Loperamide Hcl 2 Mg Capsule) 2 mg PO Q4H PRN PRN Reason: Diarrhea Last Admin: 02/23/22 21:56 Dose: 2 mg Documented by: Magnesium Hydroxide (Milk Of Magnesia 30 Ml Oral.Susp) 30 ml PO DAILY PRN PRN Reason: Constipation Meclizine HCl (Meclizine Hcl 25 Mg Tablet) 25 mg PO DAILY PRN PRN Reason: vertigo Memantine (Memantine Hcl 5 Mg Tablet) 5 mg PO BID [facility] Last Admin: 02/24/22 08:04 Dose: 5 mg Documented by: Metformin HCl (Metformin Hcl Er 500 Mg Tab.Er.24h) 1,000 mg PO BID [facility] Last Admin: 02/24/22 08:02 Dose: 1,000 mg Documented by: Naproxen (Naproxen 500 Mg Tablet) 500 mg PO BID [facility] Last Admin: 02/24/22 08:02 Dose: 500 mg Documented by: Pt Own Med (Darifenacin 7.5 Mg) 7.5 mg PO DAILY [facility] Last Admin: 02/24/22 08:35 Dose: 7.5 mg Documented by: Pt Own Med (Loxapine Succinate 10 Mg Capsule) 10 mg PO BID [facility] Last Admin: 02/24/22 08:05 Dose: 10 mg Documented by: Patient Own Med ( Loxapine Succinate 5 Mg) 15 mg PO BEDTIME [facility] Last Admin: 02/23/22 21:57 Dose: 15 mg Documented by: Promethazine HCl (Promethazine Hcl 25 Mg Tablet) 25 mg PO TID PRN PRN Reason: Allergic Symptoms Last Admin: 02/22/22 14:11 Dose: 25 mg Documented by: Propranolol HCl (Propranolol Hcl 20 Mg Tablet) 20 mg PO TID [facility]; Protocol Last Admin: 02/24/22 14:04 Dose: 20 mg Documented by: Senna (Sennosides 8.6 Mg Tablet) 8.6 mg PO BEDTIME [facility] Last Admin: 02/23/22 21:51 Dose: Not Given Documented by: Sitagliptin Phosphate (Sitagliptin Phosphate 100 Mg Tablet) 100 mg PO DAILY [facility] Last Admin: 02/24/22 08:03 Dose: 100 mg Documented by: Allergies Allergies Allergy/AdvReac Type Severity Reaction Status Date / Time haloperidol [HALOPERIDOL] Allergy Intermediate SWELLING Verified 01/12/22 14:29 carbamazepine [From Tegretol] Allergy Mild RASH, Verified 01/12/22 14:29 TREMORS lithium [[place]] Allergy Mild RASH, Verified 01/12/22 14:29 CRAWLING OUT OF SKIN olanzapine [From Zyprexa] Allergy Mild RICHARD Verified 01/12/22 14:29 quetiapine [From Seroquel] Allergy Mild SWELLING Verified 01/12/22 14:29 WHOLE BODY, RICHARD topiramate [From TOPAMAX] Allergy Unknown RICHARD, SI Verified 01/12/22 14:29 trazodone [TRAZODONE] Allergy Unknown SYNCOPE Verified 01/12/22 14:29 aripiprazole [From ABILIFY] AdvReac Severe EXTREME SI Verified 01/12/22 14:29 lamotrigine [From Lamictal] AdvReac Mild RICHARD Verified 01/12/22 14:29 modafinil [From Provigil] AdvReac Mild RICHARD Verified 01/12/22 14:29 ALL ANTI DEPRESSENTS Allergy Unknown I GO Uncoded 01/12/22 14:29 MANIC All anti-depressants Allergy Unknown manic, rash Uncoded 01/12/22 14:29 From GEODON Allergy Unknown LETHARGY Uncoded 01/12/22 14:29 From WELLBUTRIN AdvReac Unknown AGITATION, Uncoded 01/12/22 14:29 MAVIS Assessment & Plan Assessment & Plan (1) Cognitive impairment: Status: Acute Code(s): R41.89 - Other symptoms and signs involving cognitive functions and awareness (2) Schizoaffective disorder, bipolar type: Status: Acute Code(s): F25.0 - Schizoaffective disorder, bipolar type Plan Admit to inpatient psychiatry [facility] Minimize anticholinergics, antihistamines, benzodiazepines Group therapy Diagnostic clarification Disposition planning Continue treatment for UTI 02/15: Encourage out of bed. Continue treatment plan. 02/16 Imodium for diarrhea. Monitor for any worsening in GI sx. Cdiff (patient on Abx) 02/18/22: Family meeting 02/20 2pm 02/19 continue current medications. 02/20/22 Continue current plan. Probable discharge early next week. 02/22/22- Klonopin 0.5 mb tid 02/23/22- Discharge planning for 02/25/22 02/24/22- Continue current regime. Discharge with family 02/25/22 I spent minutes with the patient and/or on the patient floor today, greater than?50% of which was spent counseling/coordinating care. Patient educated on: therapeutic strategies Informed Consent: further education needed Reason for contiued inpatient stay Substantial Risk for: stable for discharge
[2022-02-24 18:00] VITALS: BP 138/80; PULSE 70; TEMP 36.2; O2SAT 95
[2022-02-24] MEDS: Acetaminophen 325 MG TABLET 650 MG PO (21:11)
[2022-02-25 06:00] VITALS: BP 122/72; PULSE 63; RESP 18; TEMP 36.6
[2022-02-25 06:39] LABS: Glucose, Whole Blood 103 mg/dL (60-115)
[2022-02-25] MEDS: Atorvastatin Calcium 20 MG TABLET PO (07:59)
[2022-02-25] MEDS: amLODIPine Besylate 5 MG TABLET PO (07:59)
[2022-02-25] MEDS: metFORMIN HCl ER 500 MG TAB.ER.24H 1000 MG PO (07:59)
[2022-02-25] MEDS: Memantine HCl 5 MG TABLET PO (07:59)
[2022-02-25] MEDS: Gabapentin 100 MG CAPSULE PO (07:59)
[2022-02-25] MEDS: NaPROXEN 500 MG TABLET PO (07:59)
[2022-02-25] MEDS: Aspirin Enteric Coated 81 MG TABLET.DR PO (07:59)
[2022-02-25] MEDS: Propranolol HCL 20 MG TABLET PO (07:59)
[2022-02-25] MEDS: SITagliptin Phosphate 100 MG TABLET PO (07:59)
[2022-02-25] MEDS: lisinopriL 10 MG TABLET 30 MG PO (08:00)
[2022-02-25] MEDS: clonazePAM 0.5 MG TABLET PO (08:00)
[2022-02-25] MEDS: Benztropine Mesylate 0.5 MG TABLET PO (08:00)
--- NOTE | 2022-02-25 11:33 | PM.PSYDC ---
DS: Providers Provider Date of Service: 02/25/22 Date of admission: 02/13/22 19:42 Date of discharge: 02/25/22 Primary care physician: Kira Craven MD Admitting clinician: Fei Johnston Attending physician on admission: Fei Johnston Consults: 02/11/22 20:14 BHN [Consult to Crisis] Stat Reason for consultation: / Attending physician on discharge: Mehrdad Caldwell Discharging clinician: Maggie Linares DS: Diagnosis Discharge Diagnosis (1) Cognitive impairment: Status: Acute (2) Schizoaffective disorder, bipolar type: Status: Acute DS: Medications Discharge Medications Home Medications: Home Medications Medication Instructions Recorded Confirmed propranolol 20 mg tablet 20 mg PO TID 07/14/20 02/11/22 sennosides 8.6 mg capsule (senna) 8.6 mg PO BEDTIME 11/13/21 02/11/22 amlodipine 5 mg tablet 5 mg PO DAILY 12/09/21 02/11/22 lisinopril 30 mg tablet 30 mg PO DAILY 12/09/21 02/11/22 mirabegron 25 mg tablet,extended 1 tab PO DAILY 02/11/22 02/11/22 release 24 hr (Myrbetriq) sitagliptin 100 mg tablet (Januvia) 1 tab PO DAILY 02/11/22 02/11/22 Previous Rx's Medication Instructions Recorded darifenacin 7.5 mg tablet,extended 7.5 mg PO DAILY #30 tabs 10/14/20 release 24 hr Pull-ups large #240 ea 11/08/20 compress.stocking,knee,reg,lrg #2 ea 01/14/21 aspirin 81 mg tablet,delayed 81 mg PO DAILY 90 days #90 tabs 02/20/21 release PULL UPS LArge #240 ea 03/11/21 blood-glucose meter (FreeStyle #1 ea 04/25/21 Lite Meter) meloxicam 15 mg tablet 15 mg PO DAILY #90 tabs 05/13/21 Hand held Shower #1 ea 09/05/21 cane #1 ea 09/05/21 shower chair #1 ea 09/05/21 tub seat with back #1 ea 09/05/21 meclizine 25 mg tablet 25 mg PO DAILY 30 days #90 tabs 12/18/21 atorvastatin 20 mg tablet 20 mg PO DAILY 30 days #30 tabs 01/12/22 Loxapine Succinate 15 mg PO BEDTIME ##0 02/25/22 benztropine 0.5 mg tablet 0.5 mg PO BID@0830,2100 #60 tabs 02/25/22 clonazepam 0.5 mg tablet 0.5 mg PO TID #90 tabs 02/25/22 gabapentin 100 mg capsule 100 mg PO BID #60 caps 02/25/22 loxapine succinate 10 mg capsule 10 mg PO BID #90 caps 02/25/22 loxapine succinate 5 mg capsule 1 cap PO BEDTIME #30 caps 02/25/22 memantine 5 mg tablet 5 mg PO BID 30 days #60 tabs 02/25/22 metformin 500 mg tablet,extended 1,000 mg PO BID #120 tabs 02/25/22 release 24 hr Mental Status Exam Mental Status Exam Patient Appearance: Appropriate Patient Orientation: Person and Place Level of Consciousness: Alert Patient Behavior: Talkative, Cooperative and Good Eye Contact Mood Description: Calm Affect Description: Calm Patient Cognition Impaired: Yes Ability to Follow Directions: Good Speech Pattern: Impoverished, Spontaneous Speech, Soft-Spoken and Cofabulation (mild) Memory Description: Remote Impaired, Episodic Impaired and Recent Impaired Hallucinations: None Delusions: Not Present Thought Process: Distracted (mild) Thought Content: positive for [place] and positive for Suicidal Ideation (denies) Judgement: Fair Data Data Completed and Pending Completed studies during hospitalization [Text1]: 02/19/22 02/21/22 02/21/22 06:32 06:31 08:51 Creatinine 0.92 Estim Creat Clear Calc 66.0 Estimated GFR > 60 POC Glucose 117 H 115 02/22/22 02/23/22 02/24/22 06:31 06:05 06:38 Creatinine Estim Creat Clear Calc Estimated GFR POC Glucose 103 105 106 02/25/22 06:34 Creatinine Estim Creat Clear Calc Estimated GFR POC Glucose 103 DS: Summary Hospital Course Hospital Course: Admission to adult psychiatry to address symptoms of schizoaffective disorder and cognitive impairment. Klonopin was decreased during admission, assisting pt in clarity. When approaching discharge, pt asked to have this dosage amount returned as she finds it helpful at home. Loxapine, Memantine, Gabapentin, Benztropine were maintained. Pt agreed to have [facility] assist with her care upon discharge. Pt, on the unit, experienced good and bad moments. When re-oriented to plan of care and current plans, her mood appeared to improve. She did experience times where, when lost in her own thoughts, a level of distress presented. She consistently responded to teams interventions however and it was suggested to family that she have minimal time being alone as she responds positively to being around others. Family is planning a day program for her which she will certainly benefit. Time spent discussing smoking cessation with patient: 3 to 10 minutes Status at Discharge Functional status at discharge: independent ambulation Overall status at discharge: patient is progressing back to baseline Time Spent with Patient Time attestation: Total time spent providing and/or coordinating discharge services: 40 Time spent: Greater than 30 minutes Discharge Plan Discharge Patient Disposition: Home, Self-Care Discharge Diagnosis: Schizoaffective Disorder Cognitive Impairment Referrals: WALTER WEBB RN [Other] - 1 Week (fax- [phone]) Joshua Pompa [Other] - 03/03/22 3:00 pm (Outpatient therapy appointment (Tele-health) following discharge from [facility] Dr. Hopson [Other] - 03/11/22 10:30 am (Follow-up appointment for outpatient psychiatry after hospital discharge. Appointment is by telephone (Audio Call).) Kira Craven MD [Primary Care Provider] - 03/10/22 9:00 am Discharge Medications: New benztropine 0.5 mg Tablet 0.5 mg PO BID@0830,2100 Qty: 60 0RF gabapentin 100 mg Capsule 100 mg PO BID Qty: 60 0RF Loxapine Succinate 15 mg PO BEDTIME Qty: 0 0RF clonazepam 0.5 mg Tablet 0.5 mg PO TID Qty: 90 0RF metformin 500 mg Tablet Extended Release 24 Hr 1,000 mg PO BID Qty: 120 0RF Continued darifenacin 7.5 mg tablet extended release 24 hr 7.5 mg PO DAILY Qty: 30 5RF (DME) Pull-ups large See Rx Instructions .Route .MEDSUPPLY Qty: 240 11RF Rx Instructions: As directed aspirin 81 mg tablet,delayed release (DR/EC) 81 mg PO DAILY 90 Days Qty: 90 3RF (DME) PULL UPS LArge See Rx Instructions .Route .MEDSUPPLY Qty: 240 0RF Rx Instructions: As directed (DME) blood-glucose meter [FreeStyle Lite Meter] Kit See Rx Instructions .ROUTE .MEDSUPPLY Qty: 1 0RF Rx Instructions: As directed check the BS QD meloxicam 15 mg tablet 15 mg PO DAILY Qty: 90 2RF (DME) Hand held Shower See Rx Instructions .Route .MEDSUPPLY Qty: 1 0RF Rx Instructions: As directed (DME) shower chair See Rx Instructions .Route .MEDSUPPLY Qty: 1 0RF Rx Instructions: As directed ([facility]) tub seat with back See Rx Instructions .Route .MEDSUPPLY Qty: 1 0RF Rx Instructions: As directed ([facility]) cane See Rx Instructions .Route .MEDSUPPLY Qty: 1 0RF Rx Instructions: As directed lisinopril 30 mg tablet 30 mg PO DAILY amlodipine 5 mg tablet 5 mg PO DAILY meclizine 25 mg tablet 25 mg PO DAILY 30 Days Qty: 90 1RF propranolol 20 mg Tablet 20 mg PO TID Januvia 100 mg tablet 1 tab PO DAILY Myrbetriq 25 mg tablet extended release 24 hr 1 tab PO DAILY loxapine succinate 5 mg capsule 1 cap PO BEDTIME Qty: 30 0RF loxapine succinate 10 mg Capsule 10 mg PO BID Qty: 90 0RF memantine 5 mg tablet 5 mg PO BID 30 Days Qty: 60 3RF (DME) compress.stocking,knee,reg,lrg Misc See Rx Instructions .ROUTE .MEDSUPPLY Qty: 2 0RF Rx Instructions: As directed 20-30 mm HG senna 8.6 mg capsule 8.6 mg PO BEDTIME atorvastatin 20 mg tablet 20 mg PO DAILY 30 Days Qty: 30 4RF Discontinued gabapentin 300 mg capsule 300 mg PO BID Qty: 180 2RF cyclobenzaprine 5 mg tablet 5 mg PO TID PRN (Reason: for muscle spasm) Qty: 80 2RF Hold Instructions: dizziness clonazepam 1 mg tablet 1 mg PO BID benztropine 1 mg tablet 1 mg PO BID@0830,2100 metformin 500 mg tablet extended release 24 hr 2 tab PO DAILY clonazepam 0.5 mg tablet 0.5 mg PO DAILY PRN (Reason: Anxiety) No Action albuterol sulfate 90 mcg/actuation HFA aerosol inhaler 2 inh inhalation Q6-8H PRN (Reason: shortness of breath or wheezing) Qty: 8.5 0RF fluticasone propionate [Flovent HFA] 110 mcg/actuation HFA aerosol inhaler 1 inh inhalation BID Qty: 12 0RF Discharge Orders: Discharge Order (Routine); Ordered 02/25/22 Ordered By: Maggie Linares Activity on Discharge: As tolerated Stand Alone Forms: Patient Portal Discharge page, Community Support Care Plan Goals: Mood stabilization Health Concerns: Schizoaffective disorder Cognitive Impairment Plan of Treatment: <del>A</del>ttend follow up appointments Take medications as directed Assessment: non-psychotic non-suicidal Discharge Date/Time: 02/25/22 10:45
== END 2022-02-25 10:45 | disposition home or self-care (01) | DRG 885 ==
LOC: HO.ED 02-13 14:30 → HO.PM5 02-13 19:48
PROVIDERS: Physician Assistant; Social Worker; Admitting Provider Psychiatry & Neurology Psychiatry; Emergency Provider Student in an Organized Health Care Education/Training Program; PCP Internal Medicine; Visit Provider Clinical Nurse Specialist Psychiatric/Mental Health, Adult
DX: F25.0 Schizoaffective disorder, bipolar type (principal); N39.0 Urinary tract infection, site not specified; E11.40 Type 2 diabetes mellitus with diabetic neuropathy, unspecified; G31.84 Mild cognitive impairment of uncertain or unknown etiology; K21.9 Gastro-esophageal reflux disease without esophagitis; Z20.822 Contact with and (suspected) exposure to COVID-19; Z88.8 Allergy status to other drugs, medicaments and biological substances; Z79.82 Long term (current) use of aspirin; Z79.84 Long term (current) use of oral hypoglycemic drugs; Z79.899 Other long term (current) drug therapy
CPT/HCPCS: 36415; 80053; 80061; 80307; 81001; 82565; 82607; 82746; 82947; 82977; 84443; 85025; 87635; 99285

== ENCOUNTER 2022-05-12 12:42 | Outpatient (REF) | payer OTHER, SELFPAY ==
--- NOTE | ~2022-05-12 | MM_ITS ---
EXAMINATION: MM SCREENING DIGITAL BREAST TOMOSYNTHESIS, BILATERAL CLINICAL INFORMATION: Screening. Asymptomatic. The lifetime risk of breast cancer based on the Tyrer-Cuzick Model is 4.7%. COMPARISON: Mammography: February 11, 2021 and studies dating back to March 02, 2014 TECHNIQUE: Digital breast tomosynthesis is performed in both the craniocaudal and mediolateral oblique views along with computer-aided detection (CAD). Synthesized 2D images are generated from the tomosynthesis. FINDINGS: There are scattered areas of fibroglandular density (ACR BI-RADS breast composition Category b). There are no significant masses, abnormal calcifications, or other abnormalities. MM/MM tomosynthesis screening BI IMPRESSION: No significant changes from prior exam. ASSESSMENT: BI-RADS 1: Negative RECOMMENDATION: Routine annual mammography screening. This patient's information was entered into a reminder system with a target due date for their next mammogram.
== END 2022-05-12 12:43 | disposition home or self-care (01) ==
LOC: HO.MAMMO 12:42
PROVIDERS: PCP Internal Medicine; Visit Provider Internal Medicine
DX: Z12.31 Encounter for screening mammogram for malignant neoplasm of breast (principal)
CPT/HCPCS: 77063; 77067

== ENCOUNTER 2022-06-29 20:46 | Inpatient (IN) | payer OTHER, SELFPAY ==
--- NOTE | 2022-06-29 | ECG_ITS ---
Test Reason : MED CLEARANCE Blood Pressure : / mmHG Vent. Rate : 077 BPM Atrial Rate : 077 BPM P-R Int : 202 ms QRS Dur : 114 ms QT Int : 420 ms P-R-T Axes : 041 -55 032 degrees QTc Int : 475 ms Normal sinus rhythm Left anterior fascicular block Intra-ventricular conduction delay RSR' or QR pattern in V1 suggests right ventricular conduction delay Minimal voltage criteria for LVH, may be normal variant ( Balwinder product ) Abnormal ECG When compared with ECG of 19-MAR-2021 17:38, No significant change was found Referred By: Generic ED Physician Electronically Signed By:BOB AZUL MD
[2022-06-29 21:15] VITALS: BP 174/76; PULSE 87; RESP 18; TEMP 36.1; O2SAT 96; BMI 36.6
--- OUTSIDE RECORDS SUMMARY | 2022-06-29 21:28 | XMS_ITS | Continuity of Care Document ---
:1960 Author Organization [facility] Address [address] [place] [address]- Care Team Providers Name Role Phone Po Kira ARAGON Primary Care Physician Encounter [facility] Date(s): 01/12/22 - 02/11/22 [facility] [address] [address] Attending Physician: Jenny Jon Admitting Physician: Admtr, Ferdinand8 Referring Physician: Admtr, Ar8 Allergies, Adverse Reactions, Alerts Substance Reaction Severity Status lithium Active risperidone Active Seroquel Active Lamictal Active Zoloft Active Tegretol Active Wellbutrin Active Paxil Active Haldol Active Zyprexa Active Topamax Active Depakote Active Provigil Active Geodon Active Abilify Active traZODone Active Immunizations Given and Recorded Vaccine Date Status Refusal Reason pneumococcal 23-valent vaccine1 08/17/11 Given influenza virus vaccine, inactivated2 08/17/11 Given 1Result Comment: written information [email or web address] Comment: written information provided Medications Amlodipine 5 mg, By Mouth, Daily, Maintenance, 04/04/13 15:26:17 Start Date: 04/04/13 Status: Orderedatorvastatin 10 mg oral tablet 1 tablet = 10 mg, By Mouth, Daily, 0 Refills, Maintenance, 04/24/20 13:49:00 EDT Start Date: 04/24/20 Status: OrderedBenadryl 25 mg oral capsule 1 capsule = 25 mg, By Mouth, 2 times a day, # 30 capsule, 0 Refills, Maintenance, Capsule Start Date: 04/04/13 Status: OrderedBenadryl Tablet = 100 mg, By Mouth, Daily at bedtime, 0 Refills, Maintenance Start Date: 04/04/13 Status: OrderedCogentin Tablet 1 mg, By Mouth, 2 times a day, Maintenance, 04/04/13 15:26:48 Start Date: 04/04/13 Status: Orderedcyclobenzaprine 5 mg oral tablet 1 tablet = 5 mg, By Mouth, 3 times a day, 0 Refills, Maintenance, 04/24/20 13:50:00 EDT Start Date: 04/24/20 Status: Ordereddarifenacin 15 mg oral tablet, extended release 1 tablet = 15 mg, By Mouth, Daily, # 30 tablet, 10 Refills, Maintenance, 12/03/20 14:31:00 EDT, ER Tablet, [id number], Partial fill upon patient request if the prescription is for a schedule II opioid drug., 158.3, cm, 12/03/20 14:06:... Start Date: 12/03/20 Status: Orderedestradiol 0.1 mg/g vaginal cream = 1 Gm, Vaginally, Daily at bedtime, take every night for two weeks then twice weekly, # 30 Gm, 11 Refills, Maintenance, 12/03/20 14:30:00 EDT, [id number], Partial fill upon patient request if the prescription is for a schedule II opi... Start Date: 12/03/20 Status: OrderedFlovent 110 mcg Inhaler HFA Refills 0, Maintenance, 04/24/20 13:49:00 EDT Start Date: 04/24/20 Status: OrderedFreeStyle [place] FreeStyle [place], Refills 0, Maintenance, 04/24/20 13:51:00 EDT, Supply Start Date: 04/24/20 Status: OrderedFreeStyle Lite Test FreeStyle Lite Test, Refills 0, Maintenance, 04/24/20 13:50:00 EDT, Supply Start Date: 04/24/20 Status: Orderedgabapentin 300 mg oral capsule 300 mg, 1, capsule, By Mouth, 3 times a day, Refills 0, Maintenance, 04/24/20 13:49:00 EDT Start Date: 04/24/20 Status: OrderedKlonopin 1 mg oral tablet 1 tablet = 1 mg, By Mouth, 3 times a day, 0 Refills, Maintenance Start Date: 08/16/11 Status: Orderedlisinopril 10 mg oral tablet 10 mg, 1, tablet, By Mouth, Daily, Refills 0, Maintenance, 04/24/20 13:49:00 EDT Start Date: 04/24/20 Status: Orderedloperamide 2 mg oral capsule 2 mg, 1, capsule, By Mouth, Every 4 hours, Refills 0, Maintenance, 04/24/20 13:51:00 EDT Start Date: 04/24/20 Status: OrderedLoxitane = 20 mg, By Mouth, 2 times a day, 0 Refills, Maintenance Start Date: 04/04/13 Status: Orderedmeloxicam 15 mg oral tablet 1 tablet = 15 mg, By Mouth, Daily, 0 Refills, Maintenance, 04/24/20 13:50:00 EDT Start Date: 04/24/20 Status: OrderedmetFORMIN 1000 mg oral tablet 1 tablet = 1,000 mg, By Mouth, 2 times a day, 0 Refills, Maintenance, 04/24/20 13:49:00 EDT Start Date: 04/24/20 Status: OrderedMyrbetriq 25 mg oral tablet, extended release 1 tablet = 25 mg, By Mouth, Daily, # 30 tablet, 2 Refills, Maintenance, 02/10/22 14:26:00 EDT, [id number], Partial fill upon patient request if the prescription is for a schedule II opioid drug., 158.3, cm, 12/03/20 14:06:00 EDT, [facility] Start Date: 02/10/22 Status: Orderedondansetron 4 mg oral tablet 1 tablet = 4 mg, By Mouth, Every 8 hours, 0 Refills, Maintenance, 04/24/20 13:50:00 EDT Start Date: 04/24/20 Status: OrderedProAir Digihaler 90 mcg/inh inhalation powder 2 puffs, Inhalation, Every 6 hours, 0 Refills, Maintenance, 04/24/20 13:48:00 EDT Start Date: 04/24/20 Status: OrderedPropranolol 20 mg, By Mouth, 3 times a day, Maintenance, 04/04/13 15:30:29 Start Date: 04/04/13 Status: OrderedSupoort Stockings Supoort Stockings, Refills 0, Maintenance, 04/24/20 13:51:00 EDT, Supply Start Date: 04/24/20 Status: OrderedWellbutrin 100 mg oral tablet 1 tablet = 100 mg, By Mouth, Daily, # 60 tablet, 0 Refills, Maintenance, Tablet Start Date: 04/04/13 Status: Ordered Problem List Condition Effective Dates Status Health Status Informant Alcohol dependence in Active remission(Confirmed) Arthritis(Confirmed) Active Dissociative disorder(Confirmed) Active Esophageal reflux (GERD)(Confirmed) Active H/O cannabis abuse(Confirmed) Active H/O hallucinogen abuse(Confirmed) Active Hepatitis C(Confirmed) Active History of ectopic Active (Confirmed) Hx of cholecystectomy(Confirmed) Active Hypertension(Confirmed) Active Nicotine dependence(Confirmed) Active Post traumatic stress disorder Active (PTSD)(Confirmed) Social History Social History Type Response Smoking Status Former smoker, quit more marisol n 30 days ago entered on: 01/09/20 Sex
--- OUTSIDE RECORDS SUMMARY | 2022-06-29 21:28 | XMS_ITS | Continuity of Care Document ---
:1960 Author Organization [facility] Address [address] [place] [address], [address] [place] [address]- Care Team Providers Name Role Phone Po Kira ARAGON Primary Care Physician Encounter [facility] Date(s): 11/07/20 - 12/07/20 [facility] [address] [address] Attending Physician: Jenny Jon Admitting Physician: Admtr, Ar8 Referring Physician: Admtr, Ar8 Allergies, Adverse Reactions, Alerts Substance Reaction Severity Status lithium Active risperidone Active Abilify Active Seroquel Active Lamictal Active Zoloft Active Wellbutrin Active Paxil Active Topamax Active Provigil Active Tegretol Active Haldol Active Geodon Active traZODone Active Zyprexa Active Depakote Active Immunizations Given and Recorded Vaccine Date Status Refusal Reason pneumococcal 23-valent vaccine1 08/17/11 Given influenza virus vaccine, inactivated2 08/17/11 Given 1Result Comment: written information [id number] Comment: written information provided Medications Amlodipine 5 [...] Refills, Maintenance, 12/03/20 14:31:00 EDT, ER Tablet, [id number], Partial fill upon patient request if the prescription is for a schedule II opioid drug., 158.3, cm, 12/03/20 14:06:... Start Date: 12/03/20 Status: Orderedestradiol 0.1 mg/g vaginal cream = 1 Gm, Vaginally, Daily at bedtime, take every night for two weeks then twice weekly, # 30 Gm, 11 Refills, Maintenance, 12/03/20 14:30:00 EDT, [facility] #[id number], Partial fill upon patient request if the prescription is for a schedule II opi... Start Date: 12/03/20 Status: OrderedFlovent 110 mcg Inhaler HFA Refills 0, Maintenance, 04/24/20 13:49:00 EDT Start Date: 04/24/20 Status: OrderedFreeStyle [place] FreeStyle [place], Refills 0, Maintenance, 04/24/20 13:51:00 EDT, Supply [...] 04/24/20 13:49:00 EDT Start Date: 04/24/20 Status: Orderedondansetron 4 mg oral tablet 1 [...]
--- OUTSIDE RECORDS SUMMARY | 2022-06-29 21:28 | XMS_ITS | Continuity of Care Document ---
:1960 Author Organization [facility] Address [address] [place] [address]- Care Team Providers Name Role Phone Po Kira ARAGON Primary Care Physician Encounter [facility] Date(s): 11/14/20 - 12/14/20 [facility] [address] [place] [address] Allergies, Adverse Reactions, Alerts Substance Reaction Severity [...] inactivated2 08/17/11 Given 1Result Comment: written information [id number] Comment: written information provided Medications Amlodipine 5 [...] Refills, Maintenance, 12/03/20 14:31:00 EDT, ER Tablet, [id number], Partial fill upon patient request if the prescription is for a schedule II opioid drug., 158.3, cm, 12/03/20 14:06:... Start Date: 12/03/20 Status: Orderedestradiol 0.1 mg/g vaginal cream = 1 Gm, Vaginally, Daily at bedtime, take every night for two weeks then twice weekly, # 30 Gm, 11 Refills, Maintenance, 12/03/20 14:30:00 EDT, [facility] #[id number], Partial fill upon patient request if the prescription is for a schedule II opi... Start Date: 12/03/20 Status: OrderedFlovent 110 mcg Inhaler HFA Refills 0, Maintenance, 04/24/20 13:49:00 EDT Start Date: 04/24/20 Status: OrderedFreeStyle [place] FreeStyle [place], Refills 0, Maintenance, 04/24/20 13:51:00 EDT, Supply [...]
--- OUTSIDE RECORDS SUMMARY | 2022-06-29 21:28 | XMS_ITS | Continuity of Care Document ---
:1960 Author Organization [facility] Address [address] [place] [address]- Care Team Providers Name Role Phone Po Kira ARAGON Primary Care Physician Encounter [facility] Date(s): 05/08/20 - 06/07/20 [facility] [address] [place] [address]- [facility] Allergies, Adverse Reactions, Alerts Substance Reaction Severity [...] inactivated2 08/17/11 Given 1Result Comment: written information [id number] Comment: written information provided Medications Amlodipine 5 [...] 04/24/20 13:50:00 EDT Start Date: 04/24/20 Status: OrderedEnablex = 7.5 mg, By Mouth, Daily, 0 Refills, Maintenance Start Date: 04/04/13 Status: OrderedFlovent 110 mcg Inhaler HFA Refills 0, Maintenance, 04/24/20 13:49:00 EDT Start Date: 04/24/20 Status: OrderedFreeStyle [place] FreeStyle [place], Refills 0, Maintenance, 04/24/20 13:51:00 EDT, Supply [...]
--- OUTSIDE RECORDS SUMMARY | 2022-06-29 21:28 | XMS_ITS | Continuity of Care Document ---
:1960 Author Organization [facility] Address [address] [place] [address], [address] [place] [address]- Care Team Providers Name Role Phone Po Kira ARAGON Primary Care Physician Encounter [facility] Date(s): 12/03/20 - 01/02/21 [facility] [address] [address] Attending Physician: Jenny Jon Admitting Physician: Admtr, [...] inactivated2 08/17/11 Given 1Result Comment: written information [id number] Comment: written information provided Medications Amlodipine 5 [...] Refills, Maintenance, 12/03/20 14:31:00 EDT, ER Tablet, [facility][id number], Partial fill upon patient request if the prescription is for a schedule II opioid drug., 158.3, cm, 12/03/20 14:06:... Start Date: 12/03/20 Status: Orderedestradiol 0.1 mg/g vaginal cream = 1 Gm, Vaginally, Daily at bedtime, take every night for two weeks then twice weekly, # 30 Gm, 11 Refills, Maintenance, 12/03/20 14:30:00 EDT, [id number], Partial fill upon patient request if the prescription is for a schedule II opi... Start Date: 12/03/20 Status: OrderedFlovent 110 mcg Inhaler HFA Refills 0, Maintenance, 04/24/20 13:49:00 EDT Start Date: 04/24/20 Status: OrderedFreeStyle [place] FreeStyle [place], Refills 0, Maintenance, 04/24/20 13:51:00 EDT, Supply [...]
--- OUTSIDE RECORDS SUMMARY | 2022-06-29 21:28 | XMS_ITS | Continuity of Care Document ---
:1960 Author Organization [facility] Address [address] [place] [address]- Care Team Providers Name Role Phone Kira Craven MD [id number] Date[facility]09[facility] - 01/16/20 [facility] [address] [address]- Attending Physician: Ramonita Cameron MD Referring Physician: Kira Craven MD Allergies, Adverse Reactions, Alerts Substance Reaction Severity [...] inactivated2 08/17/11 Given 1Result Comment: written information [id number] Comment: written information provided Medications Amlodipine 5 mg, By Mouth, Daily, Maintenance, 04/04/13 15:26:17 Start Date: 04/04/13 Status: OrderedBenadryl 25 mg oral capsule 1 capsule = 25 mg, By Mouth, 2 times a day, # 30 capsule, 0 Refills, Maintenance, Capsule Start Date: 04/04/13 Status: OrderedBenadryl Tablet = 100 mg, By Mouth, Daily at bedtime, 0 Refills, Maintenance Start Date: 04/04/13 Status: OrderedCogentin Tablet 1 mg, By Mouth, 2 times a day, Maintenance, 04/04/13 15:26:48 Start Date: 04/04/13 Status: OrderedEnablex = 7.5 mg, By Mouth, Daily, 0 Refills, Maintenance Start Date: 04/04/13 Status: OrderedKlonopin 1 mg oral tablet 1 tablet = 1 mg, By Mouth, 3 times a day, 0 Refills, Maintenance Start Date: 08/16/11 Status: OrderedLoxitane = 20 mg, By Mouth, 2 times a day, 0 Refills, Maintenance Start Date: 04/04/13 Status: OrderedPropranolol 20 mg, By Mouth, 3 times a day, Maintenance, 04/04/13 15:30:29 Start Date: 04/04/13 Status: OrderedWellbutrin 100 mg oral tablet 1 [...] Active Post traumatic stress disorder Active (PTSD)(Confirmed) Procedures Procedure Date Related Diagnosis Body Site Status Cholecystectomy Completed Oophorectomy Completed Termination of ectopic Completed Vital Signs Most recent to oldest [Reference Range]: 1 Height 158.3 cm (01/09/20 10:37 AM) Weight 87.7 kg (01/09/20 10:37 AM) Body Mass Index [18.5-24.99] 35 *>HHI* (01/09/20 10:37 AM) Blood Pressure [90-138/55-84 mm Hg] 122/80 mm Hg (01/09/20 10:37 AM) Temperature [96.8-100.4 DegF] 98 DegF (01/09/20 10:37 AM) Blood pressure sites Arm, right (01/09/20 10:37 AM) Temperature Route Temporal (01/09/20 10:37 AM) Weight Obtained Via Standing scale (01/09/20 10:37 AM) Social History Social History Type Response Smoking Status Former smoker, quit more marisol n 30 days ago entered on: 01/09/20 Sex
--- OUTSIDE RECORDS SUMMARY | 2022-06-29 21:28 | XMS_ITS | Continuity of Care Document ---
:1960 Author Organization [facility] Address [address] [place] [address]- Care Team Providers Name Role Phone Po Kira ARAGON Primary Care Physician Encounter [facility] [id number] Date(s): 01/09/20 - 02/08/20 [facility] [address] [address] [facility] Attending Physician: Dontrell, Jenny Admitting Physician: Admtr, Jenny Referring Physician: Admtr, Ar8 Allergies, Adverse Reactions, [...] inactivated2 08/17/11 Given 1Result Comment: written information [id number] Comment: written information provided Medications Amlodipine 5 [...]
--- OUTSIDE RECORDS SUMMARY | 2022-06-29 21:28 | XMS_ITS | Continuity of Care Document ---
:1960 Author Organization [facility] Address [address] [place] [address]- Care Team Providers Name Role Phone Kira Craven MD Primary Care Physician [place] [facility] Date(s): 12/12/19 - 03/09/20 [facility] [address] [place] [address]- [facility] Attending Physician: Belén Terrell MD Allergies, Adverse Reactions, Alerts Substance Reaction [...] inactivated2 08/17/11 Given 1Result Comment: written information [id number] Comment: written information provided Medications Amlodipine 5 [...]
--- OUTSIDE RECORDS SUMMARY | 2022-06-29 21:28 | XMS_ITS | Continuity of Care Document ---
:1960 Author Organization [facility] Address [address] [place] [address]- Care Team Providers Name Role Phone Po Kira ARAGON Primary Care Physician [place] [facility] [place](s[place] 04/24/20 - 05/24/20 [facility] [address] [place] [address]- [facility] Attending Physician: Jenny Jon Admitting Physician: AdmtrJenny Referring Physician: Admtr, Ar8 Allergies, Adverse Reactions, [...] inactivated2 08/17/11 Given 1Result Comment: written information [id number] Comment: written information provided Medications Amlodipine 5 [...] 13:49:00 EDT Start Date: 04/24/20 Status: OrderedFreeStyle [place] FreeStyle [place], Refills 0, Maintenance, 04/24/20 13:51:00 EDT, Supply [...]
--- OUTSIDE RECORDS SUMMARY | 2022-06-29 21:28 | XMS_ITS | Continuity of Care Document ---
:1960 Author Organization [facility] Address [address] [place] [address], [address] [place] [address]- Care Team Providers Name Role Phone Po Kira ARAGON Primary Care Physician Encounter [facility] ACCT R [id number] Date(s): 06/03/20 - 07/03/20 [facility] [address] [address]- [facility] Attending Physician: Admjohnathon, Ferdinand8 Admitting Physician: Admtr, Ar8 Referring Physician: Admtr, Ar8 Allergies, Adverse Reactions, Alerts Substance Reaction Severity Status lithium Active risperidone Active Seroquel Active Abilify Active Lamictal Active Zoloft Active Wellbutrin Active Paxil Active Topamax Active Provigil Active Tegretol Active Haldol Active Geodon Active traZODone Active Zyprexa Active Depakote Active Immunizations Given and Recorded Vaccine Date Status Refusal Reason pneumococcal 23-valent vaccine1 08/17/11 Given influenza virus vaccine, inactivated2 08/17/11 Given 1Result Comment: written information [id number] Comment: written information provided Medications Amlodipine 5 [...] 13:49:00 EDT Start Date: 04/24/20 Status: OrderedFreeStyle [place] FreeStyle [place], Refills 0, Maintenance, 04/24/20 13:51:00 EDT, Supply [...]
--- OUTSIDE RECORDS SUMMARY | 2022-06-29 21:29 | XMS_ITS | Continuity of Care Document ---
:1960 Author Organization [facility] Address [address] [place] [address], [address] [place] [address]- Care Team Providers Name Role Phone Kira Craven MD Primary Care Physician Encounter [facility] Date(s): 04/24/20 - 07/03/20 [facility] [address] [address]- [facility] Attending Physician: Emani ARAGON, Cara Branch Referring Physician: Kira Craven MD Allergies, Adverse [...] inactivated2 08/17/11 Given 1Result Comment: written information [id number] Comment: written information provided Medications Amlodipine 5 [...] 13:49:00 EDT Start Date: 04/24/20 Status: OrderedFreeStyle [place] FreeStyle [place], Refills 0, Maintenance, 04/24/20 13:51:00 EDT, Supply [...]
--- OUTSIDE RECORDS SUMMARY | 2022-06-29 21:29 | XMS_ITS | Continuity of Care Document ---
:1960 Author Organization [facility] Address [address] [place] [address]- Care Team Providers Name Role Phone Po Kira ARAGON Primary Care Physician Encounter [facility] Date(s): 01/09/20 - 02/08/20 [facility] [address] [place] [address]- [facility] Attending Physician: Admjohnathon, Ferdinand8 Admitting Physician: Admtr, [...] inactivated2 08/17/11 Given 1Result Comment: written information [id number] Comment: written information provided Medications Amlodipine 5 [...]
--- OUTSIDE RECORDS SUMMARY | 2022-06-29 21:29 | XMS_ITS | Continuity of Care Document ---
:1960 Author Organization [facility] Address [address] [place] [address]- Care Team Providers Name Role Phone Po Kira ARAGON Primary Care Physician Encounter [facility] Date(s): 02/22/20 - 04/26/20 [facility] [address] [place] [address]- [facility] Attending Physician: Karen Jarrett MD Referring Physician: Belén Terrell MD Allergies, Adverse Reactions, [...] inactivated2 08/17/11 Given 1Result Comment: written information [id number] Comment: written information provided Medications Amlodipine 5 [...] 13:49:00 EDT Start Date: 04/24/20 Status: OrderedFreeStyle [place] FreeStyle [place], Refills 0, Maintenance, 04/24/20 13:51:00 EDT, Supply [...]
--- OUTSIDE RECORDS SUMMARY | 2022-06-29 21:29 | XMS_ITS | Continuity of Care Document ---
:1960 Author Organization [facility] Address [address] [place] [address]- Care Team Providers Name Role Phone Po Kira ARAGON Primary Care Physician [place] [facility] [place] 05/19/22 - 06/18/22 [facility] [address] [address] Attending Physician: Jenny Jon Admitting Physician: Admtr, [id number] Referring Physician: Admtr, [id number] Allergies, Adverse Reactions, Alerts Substance Reaction Severity Status lithium Active risperidone Active Lamictal Active Abilify Active Seroquel Active Zoloft Active Wellbutrin Active Paxil Active Topamax Active Provigil Active Tegretol Active Haldol Active Geodon Active traZODone Active Zyprexa Active Depakote Active Immunizations Given and Recorded Vaccine Date Status Refusal Reason pneumococcal 23-valent vaccine1 08/17/11 Given influenza virus vaccine, inactivated2 08/17/11 Given 1Result Comment: written information [id number] Comment: written information provided Medications Amlodipine 5 [...] 13:50:00 EDT Start Date: 04/24/20 Status: Ordereddarifenacin 7.5 mg oral tablet, extended release 1 tablet, By Mouth, Daily, # 30 tablet, 0 Refills, Maintenance, 06/17/22 12:03:00 EDT, [facility] #[id number], 158.3, cm, 12/03/20 14:06:00 EDT, Height, 85.8, kg, 12/03/20 14:06:00 EDT, Dry Weight Start Date: 06/17/22 Status: Orderedestradiol 0.1 mg/g vaginal cream = 1 Gm, Vaginally, Daily at bedtime, take every night for two weeks then twice weekly, # 30 Gm, 11 Refills, Maintenance, 12/03/20 14:30:00 EDT, [facility] #[id number], Partial fill upon patient request if the prescription is for a schedule II opi... Start Date: 12/03/20 Status: OrderedFlovent 110 mcg Inhaler HFA Refills 0, Maintenance, 04/24/20 13:49:00 EDT Start Date: 04/24/20 Status: OrderedFreeStyle [place] FreeStyle [place], Refills 0, Maintenance, 04/24/20 13:51:00 EDT, Supply [...] a day, 0 Refills, Maintenance Start Date: 11/27/11 Status: Orderedlisinopril 10 mg oral tablet 10 [...] mg, By Mouth, Daily, # 30 tablet, 11 Refills, Maintenance, 05/19/22 14:31:00 EDT, [facility] #[id number], Partial fill upon patient request if the prescription is for a schedule II opioid drug., 158.3, cm, 12/03/20 14:06:00 EDT, Hei... Start Date: 05/19/22 Status: Orderedondansetron 4 mg oral tablet 1 [...] Date: 04/04/13 Status: Ordered Problem List Condition Confirmation Course Effective Dates Status Health I nformant Status Alcohol dependence in Confirmed Active remission Arthritis Confirmed Active Dissociative disorder Confirmed Active Esophageal reflux Confirmed Active (GERD) H/O cannabis abuse Confirmed Active H/O hallucinogen Confirmed Active abuse Hepatitis C Confirmed Active History of ectopic Confirmed Active Hx of cholecystectomy Confirmed Active Hypertension Confirmed Active Nicotine dependence Confirmed Active Post traumatic stress Confirmed Active disorder (PTSD) Social History Social History Type Response Smoking Status Former smoker, quit more marisol n 30 days ago entered on: 01/09/20 Sex Patient Care team information PersonnelName: Kira Craven MD Address: Address: [address] [place] [address]
--- OUTSIDE RECORDS SUMMARY | 2022-06-29 21:29 | XMS_ITS | Continuity of Care Document ---
:1960 Author Organization [facility] Address [address] [place] [address]- Care Team Providers Name Role Phone Kira Craven MD Primary Care Physician [place] [facility] [place] 12[place]10/20 [facility] [address] [place] [id number] Attending Physician: Ramonita Cameron MD Referring Physician: [...] inactivated2 08/17/11 Given 1Result Comment: written information [id number] Comment: written information provided Medications Amlodipine 5 [...] Refills, Maintenance, 12/03/20 14:31:00 EDT, ER Tablet, [facility] #[id number], Partial fill upon patient request if the prescription is for a schedule II opioid drug., 158.3, cm, 12/03/20 14:06:... Start Date: 12/03/20 Status: Orderedestradiol 0.1 mg/g vaginal cream = 1 Gm, Vaginally, Daily at bedtime, take every night for two weeks then twice weekly, # 30 Gm, 11 Refills, Maintenance, 12/03/20 14:30:00 EDT, [facility] #[id number], Partial fill upon patient request if the prescription is for a schedule II opi... Start Date: 12/03/20 Status: OrderedFlovent 110 mcg Inhaler HFA Refills 0, Maintenance, 04/24/20 13:49:00 EDT Start Date: 04/24/20 Status: OrderedFreeStyle [place] FreeStyle [place], Refills 0, Maintenance, 04/24/20 13:51:00 EDT, Supply [...] 0 Refills, Maintenance Start Date: 04/04/13 Status: OrderedMacrobid macrocrystals-monohydrate 100 mg oral capsule = 100 mg, By Mouth, 2 times a day, for 5 days, # 10 capsule, 0 Refills, Acute 12/14/20 14:56:00 EDT,12/09/20 14:56:00 EDT, [email or web address] #[id number], Partial fill upon patient request if the prescription is for a schedule II opioid drug., 158.3, cm... Start Date: 12/09/20 Stop Date: 12/14/20 Status: Orderedmeloxicam 15 mg oral tablet 1 [...] Active Post traumatic stress disorder Active (PTSD)(Confirmed) Vital Signs Most recent to oldest [Reference Range]: 1 Height 158.3 cm (12/03/20 2:06 PM) Weight 85.8 kg (12/03/20 2:06 PM) Body Mass Index [18.5-24.99] 34.24 *>HHI* (12/03/20 2:06 PM) Blood Pressure [90-138/55-84 mm Hg] 121/66 mm Hg (12/03/20 2:06 PM) Temperature [96.8-100.4 DegF] 97.3 DegF (12/03/20 2:06 PM) Blood pressure sites Arm, right (12/03/20 2:06 PM) Temperature Route Temporal (12/03/20 2:06 PM) Dry Weight 85.8 kg (12/03/20 2:06 PM) Weight Obtained Via Standing scale (12/03/20 2:06 PM) Dry Weight Obtained Via Standing scale (12/03/20 2:06 PM) Social History Social History Type Response Smoking Status Former smoker, quit more marisol n 30 days ago entered on: 01/09/20 Sex
--- OUTSIDE RECORDS SUMMARY | 2022-06-29 21:29 | XMS_ITS | Continuity of Care Document ---
:1960 Author Organization [facility] Address [address] [place] [address]- Care Team Providers Name Role Phone Po Kira ARAGON Primary Care Physician En[place] [facility] [place](s): 04/24/20 - 05/01/20 [facility] [address] [place] [address]- [facility] Attending Physician: Karen Jarrett MD Referring Physician: Not on Staff, Referring MD Allergies, Adverse Reactions, Alerts Substance Reaction [...] inactivated2 08/17/11 Given 1Result Comment: written information [id number] Comment: written information provided Medications Amlodipine 5 [...] 13:49:00 EDT Start Date: 04/24/20 Status: OrderedFreeStyle [place] FreeStyle [place], Refills 0, Maintenance, 04/24/20 13:51:00 EDT, Supply [...] oldest [Reference Range]: 1 Height 158.3 cm (04/24/20 1:32 PM) Weight 87.4 kg (04/24/20 1:32 PM) Body Mass Index [18.5-24.99] 34.88 *>HHI* (04/24/20 1:32 PM) Blood Pressure [90-138/55-84 mm Hg] 149/80 mm Hg *H* (04/24/20 1:32 PM) Temperature [96.8-100.4 DegF] 96.1 DegF *L* (04/24/20 1:32 PM) Blood pressure sites Arm, right (8/5/20 1:32 PM) Temperature Route Temporal (04/24/20 1:32 PM) Dry Weight 87.4 kg (04/24/20 1:32 PM) Weight Obtained Via Standing scale (04/24/20 1:32 PM) Dry Weight Obtained Via Standing scale (04/24/20 1:32 PM) Social History Social History Type Response Smoking Status Former smoker, quit more marisol n 30 days ago entered on: 01/09/20 Sex
--- OUTSIDE RECORDS SUMMARY | 2022-06-29 21:29 | XMS_ITS | Continuity of Care Document ---
:1960 Author Organization [facility] Address [address] [place] [address]- Care Team Providers Name Role Phone Po Kira ARAGON Primary Care Physician Encounter [facility] [place] Date(s): 06/26/21 - 07/26/21 [facility] [address] [place], [place] [address] Allergies, Adverse Reactions, Alerts Substance Reaction [...] inactivated2 08/17/11 Given 1Result Comment: written information [id number] Comment: written information provided Medications Amlodipine 5 [...] Refills, Maintenance, 12/03/20 14:31:00 EDT, ER Tablet, [facility] #[id number], Partial fill upon patient request if the prescription is for a schedule II opioid drug., 158.3, cm, 12/03/20 14:06:... Start Date: 12/03/20 Status: Orderedestradiol 0.1 mg/g vaginal cream = 1 Gm, Vaginally, Daily at bedtime, take every night for two weeks then twice weekly, # 30 Gm, 11 Refills, Maintenance, 12/03/20 14:30:00 EDT, [facility] #[id number], Partial fill upon patient request if the prescription is for a schedule II opi... Start Date: 12/03/20 Status: OrderedFlovent 110 mcg Inhaler HFA Refills 0, Maintenance, 04/24/20 13:49:00 EDT Start Date: 04/24/20 Status: OrderedFreeStyle [place] FreeStyle [place], Refills 0, Maintenance, 04/24/20 13:51:00 EDT, Supply [...]
--- OUTSIDE RECORDS SUMMARY | 2022-06-29 21:29 | XMS_ITS | Continuity of Care Document ---
:1960 Author Organization [facility] Address [address] [place] [address], [address] [place] [address]- Care Team Providers Name Role Phone Kira Craven MD Primary Care Physician [place] [facility] [place] 02[place]22 [facility] [address] [place] [address] Attending Physician: Ramonita Cameron MD Admitting Physician: Ramonita Cameron MD Referring Physician: Kira [...] inactivated2 08/17/11 Given 1Result Comment: written information [id number] Comment: written information provided Medications Amlodipine 5 [...] Refills, Maintenance, 12/03/20 14:31:00 EDT, ER Tablet, [facility] #[id number], Partial fill upon patient request if the prescription is for a schedule II opioid drug., 158.3, cm, 12/03/20 14:06:... Start Date: 12/03/20 Status: Orderedestradiol 0.1 mg/g vaginal cream = 1 Gm, Vaginally, Daily at bedtime, take every night for two weeks then twice weekly, # 30 Gm, 11 Refills, Maintenance, 12/03/20 14:30:00 EDT, [facility] #[id number], Partial fill upon patient request if the prescription is for a schedule II opi... Start Date: 12/03/20 Status: OrderedFlovent 110 mcg Inhaler HFA Refills 0, Maintenance, 04/24/20 13:49:00 EDT Start Date: 04/24/20 Status: OrderedFreeStyle [place] FreeStyle [place], Refills 0, Maintenance, 04/24/20 13:51:00 EDT, Supply [...] tablet, 2 Refills, Maintenance, 02/10/22 14:26:00 EDT, [facility] #[id number], Partial fill upon patient request if the [...]
--- OUTSIDE RECORDS SUMMARY | 2022-06-29 21:29 | XMS_ITS | Continuity of Care Document ---
:1960 Author Organization [facility] Address [address] [place] [address]- Care Team Providers Name Role Phone Po Kira ARAGON Primary Care Physician [place] [facility] [place] - 01/16/20 [facility] [address] [place] [address] [facility] Attending Physician: Not on Staff, Attending MD Referring Physician: Rakesh ARAGON, Ramonita Branch Allergies, Adverse Reactions, Alerts Substance Reaction Severity [...] inactivated2 08/17/11 Given 1Result Comment: written information [id number] Comment: written information provided Medications Amlodipine 5 [...]
--- OUTSIDE RECORDS SUMMARY | 2022-06-29 21:29 | XMS_ITS | Continuity of Care Document ---
:1960 Author Organization [facility] Address [address] [place] [address]- Care Team Providers Name Role Phone Kira Craven MD Primary Care Physician [id number] Date(s): 10/25/19 - 01/24/20 [facility] [address] [place] [address]- [facility] Attending Physician: Belén Terrell MD Referring Physician: Kira Craven MD Allergies, [...] inactivated2 08/17/11 Given 1Result Comment: written information [id number] Comment: written information provided Medications Amlodipine 5 [...]
--- OUTSIDE RECORDS SUMMARY | 2022-06-29 21:29 | XMS_ITS ---
:1960 Author Care Team Providers Name Role Phone DUTCH LEACH MD Primary Care Provider [phone] Allergies Code Code System Name Reaction Severity Status Onset NKDA ? Medications Name Status Start Date Stop Date ? ? albuterol sulfate HFA 90 mcg/actuation aerosol inhaler Active ? Not available amlodipine 5 mg tablet Active ? Not avail able amoxicillin 500 mg capsule Active ? Not a vailable Arnuity Ellipta 100 mcg/actuation powder for inhalation Active ? Not available INHALE 1 PUFF BY MOUTH DAILY Arnuity Ellipta 50 mcg/actuation powder for inhalation Active ? Not available aspirin 81 mg tablet,delayed release Active ? Not available TAKE 1 TABLET BY MOUTH DAILY atorvastatin 10 mg tablet Active ? Not av ailable TK 1 T PO HS azithromycin 250 mg tablet Active ? Not a vailable baclofen 10 mg tablet Active ? Not availa ble benztropine 1 mg tablet Active ? Not avai lable Boostrix Tdap 2.5 Lf unit-8 mcg-5 Lf/0.5 mL intramuscular Active ? Not available suspension ciprofloxacin 500 mg tablet Active ? Not available TK 1 T PO BID FOR 10 DAYS clonazepam 0.5 mg tablet Active ? Not cooper ilable clonazepam 1 mg tablet Active ? Not avail able clotrimazole 1 % topical cream Active ? N ot available cyclobenzaprine 5 mg tablet Active ? Not available TAKE 1 TABLET BY MOUTH THREE TIMES DAILY NEEDED FOR MUSCLE S PASM darifenacin ER 15 mg tablet,extended release 24 hr Active ? Not available darifenacin ER 7.5 mg tablet,extended release 24 hr Active ? Not available Dermacerin topical cream Active ? Not cooper ilable dicyclomine 10 mg capsule Active ? Not av ailable donepezil 5 mg tablet Active ? Not availa ble estradiol 0.01% (0.1 mg/gram) vaginal cream Active ? Not available Flovent Diskus 100 mcg/actuation powder for inhalation Active ? Not available Flovent HFA 110 mcg/actuation aerosol inhaler Active ? Not available INHALE 1 PUFF BY MOUTH TWICE DAILY Flucelvax Quad [id number] 60 mcg (15 mcg x 4)/0.5 mL Active ? Not available intramuscular susp FreeStyle Lancets 28 gauge Active ? Not a vailable USE TO CHECK BLOOD SUGAR ONCE DAILY DIRECTED FreeStyle Lite Meter kit Active ? Not cooper ilable FreeStyle Lite Strips Active ? Not availa ble USE 1 STRIP DAILY TO TEST BLOOD SUGAR gabapentin 300 mg capsule Active ? Not av ailable hydroxyzine HCl 25 mg tablet Active ? Not available Lantus U-100 Insulin 100 unit/mL subcutaneous solution Active ? Not available INJECT 10 UNITS SUBCUTANEOUS EVERY DAY lisinopril 10 mg tablet Active ? Not avai lable lisinopril 20 mg tablet Active ? Not avai lable loperamide 2 mg capsule Active ? Not avai lable TAKE 1 CAPSULE BY MOUTH EVERY 6 HOURS NEEDED FOR DIARRHEA loxapine succinate 10 mg capsule Active ? Not available loxapine succinate 5 mg capsule Active ? Not available Mavyret 100 mg-40 mg tablet Active ? Not available meclizine 25 mg tablet Active ? Not avail able meloxicam 15 mg tablet Active ? Not avail able memantine 5 mg tablet Active ? Not availa ble metformin 1,000 mg tablet Active ? Not av ailable metformin 500 mg tablet Active ? Not avai lable TAKE 1 TABLET BY MOUTH TWICE DAILY nitrofurantoin monohydrate/macrocrystals 100 mg capsule Active ? Not available nystatin 100,000 unit/gram topical cream Active ? Not available ondansetron HCl 4 mg tablet Active ? Not available prednisone 10 mg tablet Active ? Not avai lable promethazine 25 mg tablet Active ? Not av ailable propranolol 20 mg tablet Active ? Not cooper ilable Shingrix (PF) 50 mcg/0.5 mL intramuscular suspension, kit Active ? Not available sulfamethoxazole 800 mg-trimethoprim 160 mg tablet Active ? Not available tramadol 50 mg tablet Active ? Not availa ble triamcinolone acetonide 0.1 % topical cream Active ? Not available vitamin E (dl, acetate) 180 mg (400 unit) capsule Active ? Not available Problems Name Status Onset Date Source ? Type 2 Diabetes Mellitus Active 01/16/2020 ? Dystrophia Unguium Active 01/16/2020 ? Pain in Toe Active 01/16/2020 ? Procedures None recorded. Results Lab Results None recorded. Past Encounters None recorded. Social History Tobacco Smoking Status Never Smoker Vaccine List None recorded. Plan of Care Reminders Provider Appointments None recorded. ? ? Lab None recorded. ? ? Referral None recorded. ? ? Procedures None recorded. ? ? Surgeries None recorded. ? ? Imaging None recorded. ? ? Vitals 08/22/2020 03:15PM ESTABLISHED PATIENT 15 Height Weight BMI Blood Pressure 5 ft 2 in 200 lbs 36.6 kg/m2 122/64 mm[Hg] 04/16/2020 10:30AM ESTABLISHED PATIENT 15 Height Weight BMI 5 ft 2 in 200 lbs 36.6 kg/m2 01/16/2020 11:00AM ESTABLISHED PATIENT 15 Height Weight BMI 5 ft 2 in 200 lbs 36.6 kg/m2
[2022-06-29 21:32] VITALS: TEMP 36.6
[2022-06-29 21:32] LABS: Glucose, Whole Blood 175 mg/dL (60-115)
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
[2022-06-29 21:49] LABS: MANUAL DIFF FLAG NO
[2022-06-29 21:50] LABS: Basophils Absolute Auto 0.1 X10*3/uL (0.0-0.2); Basophils Percent Auto 1.1 % (0-2); Eosinophils Absolute Auto 0.3 X10*3/uL (0.0-0.4); Eosinophils Percent Auto 3.3 % (0-4); Hematocrit 41.8 % (37.0-47.0); Hemoglobin 13.9 g/dl (12.0-16.0); Imm Gran Abs Auto 0.02 X10*3/uL (0.00-0.03); Imm Gran Pct Auto 0.2 % (0.0-0.4); Lymphocytes Absolute Auto 3.9 X10*3/uL (1.2-4.9); Lymphocytes Percent Auto 42.1 % (20-40); Mean Corpuscular HGB Conc 33.3 g/dl (31.0-35.0); Mean Corpuscular Hemoglobin 28.4 pg (27.0-33.0); Mean Corpuscular Volume 85.3 fL (80.0-98.0); Mean Platelet Volume 9.7 fL (9.4-12.3); Monocytes Absolute Auto 0.7 X10*3/uL (0.1-1.2); Monocytes Percent Auto 7.9 % (2-11); Neutrophils Absolute Auto 4.2 x10*3/uL (2.0-8.3); Neutrophils Percent Auto 45.4 % (45-73); Platelet Count 198 X10*3/uL (160-400); White Blood Count 9.2 X10*3/uL (4.8-10.8)
[2022-06-29 21:55] LABS: COVID-19 Test Negative (Negative)
[2022-06-29 22:08] LABS: Acetaminophen LAB < 1 mcg/mL (<30); Alanine Aminotransferase 49 U/L (0-31); Albumin Level 4.4 g/dL (3.5-5.0); Alkaline Phosphatase 157 U/L (39-117); Anion Gap 17 (12-20); Aspartate Amino Transferase 49 U/L (5-31); Bilirubin Total 0.5 mg/dL (0.0-1.0); Blood Urea Nitrogen 20 mg/dL (9-16); Calcium 9.4 mg/dL (8.4-10.2); Carbon Dioxide 18 mmol/L (22-29); Chloride 107 mmol/L (96-108); Creatinine Clr Calc Pharmacy 52.2; Estimated Glomerular Filt Rate 47; Ethanol < 10 mg/dL; Glucose Random 171 mg/dL (60-115); Magnesium 1.9 mg/dL (1.6-2.6); Potassium 4.1 mmol/L (3.3-5.1); Salicylate < 5.0 mg/dL (15-30); Sodium 138 mmol/L (135-145); Total Protein 8.3 g/dL (6.5-8.0)
[2022-06-29 22:51] LABS: Appearance Urine Clear; Color Urine Yellow; Glucose Urine UA >=1000 mg/dL (Negative); Leukocyte Esterase Urine Moderate (2+) (Negative); Nitrite Urine Positive (Negative); PH 5.5 (5.0-9.0); UMIC TRIGGER UA YES; Urine Blood Negative (Negative); Urine Ketones Negative (Negative); Urine Protein Negative (Neg-Trace)
[2022-06-29 22:56] LABS: Bacteria Urine 4+ (None Seen); Hyaline Casts Urine 0-2 /LPF (0-2); RBC Urine 0-2 /HPF (0-2); WBC Urine >50 /HPF (0-5)
[2022-06-29 23:04] LABS: Amphetamine Screen Urine Not Detected (Not Detect); Barbiturates, Urine Not Detected (Not Detect); Benzodiazepines Screen Urine Not Detected (Not Detect); Cannabinoid Screen Urine Not Detected (Not Detect); Cocaine Screen Urine Not Detected (Not Detect); Fentanyl, urine Not Detected (Not Detect); Opiate Screen Urine Not Detected (Not Detect); Phencyclidine Screen Urine Not Detected (Not Detect)
[2022-06-29 23:22] VITALS: BP 141/85; PULSE 67; RESP 16; TEMP 36; O2SAT 94
[2022-06-30] MEDS: Acetaminophen 325 MG TABLET 975 MG PO (02:30)
--- NOTE | 2022-06-30 06:02 | PC.NURSE ---
Patient was whole night, in and out of room multiple, slept only one hour whole night, behavior non concerning, Patient positive for UTI, Ceftin 500 mg BID initiated/patient received first dose, patient engaged well with N, disposition section 12 inpatient bed search, med rec completed/pending provider's approval, POC at 0600 was 115, VS at baseline, will continue to monitor.
[2022-06-30 06:06] LABS: Glucose, Whole Blood 115 mg/dL (60-115)
--- NOTE | 2022-06-30 07:29 | PC.NURSE ---
Report from Gabriel EVANS. Pt calm and cooperative at this time, walking around milieu. Ate her breakfast.
[2022-06-30 09:02] VITALS: BP 154/94; PULSE 74; RESP 15; TEMP 36.6; O2SAT 95
[2022-06-30 10:36] VITALS: BP 142/81; PULSE 73
[2022-06-30] MEDS: Gabapentin 100 MG CAPSULE PO ×2 (10:36→19:47)
[2022-06-30] MEDS: Meclizine HCl 25 MG TABLET PO (10:36)
[2022-06-30] MEDS: lisinopriL 10 MG TABLET 30 MG PO (10:36)
[2022-06-30] MEDS: Atorvastatin Calcium 20 MG TABLET PO (10:36)
[2022-06-30] MEDS: amLODIPine Besylate 5 MG TABLET PO (10:36)
[2022-06-30] MEDS: Benztropine Mesylate 0.5 MG TABLET PO ×2 (10:36→19:47)
[2022-06-30] MEDS: SITagliptin Phosphate 100 MG TABLET PO (11:05)
[2022-06-30] MEDS: Mirabegron 25 MG TAB.ER.24H PO (11:05)
[2022-06-30] MEDS: Empagliflozin 10 MG TABLET PO (11:05)
[2022-06-30] MEDS: Propranolol HCL 20 MG TABLET PO ×2 (11:06→19:47)
[2022-06-30] MEDS: NaPROXEN 500 MG TABLET PO ×2 (11:59→19:47)
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
[2022-06-30 19:13] VITALS: BP 143/77; PULSE 77
[2022-06-30] MEDS: Memantine HCl 10 MG TABLET PO (19:47)
[2022-06-30] MEDS: Sennosides 8.6 MG TABLET PO (19:47)
[2022-06-30] MEDS: clonazePAM 0.5 MG TABLET PO ×2 (19:47→21:08)
[2022-07-01 06:00] VITALS: BP 168/82; PULSE 85; RESP 17; O2SAT 96
[2022-07-01 08:04] LABS: Glucose, Whole Blood 160 mg/dL (60-115)
[2022-07-01] MEDS: lisinopriL 10 MG TABLET 30 MG PO (09:05)
[2022-07-01] MEDS: Propranolol HCL 20 MG TABLET PO ×3 (09:05→19:52)
[2022-07-01] MEDS: SITagliptin Phosphate 100 MG TABLET PO (09:05)
[2022-07-01] MEDS: amLODIPine Besylate 5 MG TABLET PO (09:06)
[2022-07-01] MEDS: Mirabegron 25 MG TAB.ER.24H PO (09:06)
[2022-07-01] MEDS: Empagliflozin 10 MG TABLET PO (09:06)
[2022-07-01] MEDS: Atorvastatin Calcium 20 MG TABLET PO (09:06)
[2022-07-01] MEDS: NaPROXEN 500 MG TABLET PO ×2 (09:06→19:51)
[2022-07-01] MEDS: Memantine HCl 10 MG TABLET PO ×2 (09:06→19:51)
[2022-07-01] MEDS: Gabapentin 100 MG CAPSULE PO ×2 (09:06→19:51)
[2022-07-01] MEDS: Benztropine Mesylate 0.5 MG TABLET PO ×2 (09:06→19:52)
[2022-07-01] MEDS: Meclizine HCl 25 MG TABLET PO (09:06)
[2022-07-01] MEDS: clonazePAM 0.5 MG TABLET PO ×2 (11:44→23:57)
--- NOTE | 2022-07-01 11:56 | HO.PSYCHPN ---
Subjective Subjective Date of Service: 07/01/22 Reason For Visit: DEPRESSION / SI Subjective Notes: Michael Warning (given; pt asked questions, explained back and understands) and Conditional Voluntary Interim History: Patient friendly, calm and cooperative. Sat down with scientific technical writer and perinatal social worker. Patient shared that she has been sad citing her [id number]'s recent as well as other family members that have . She is also very worried about her sister. These worries have triggered self loathing and patient has been ruminating on bad decisions she has made in her life. Patient says she has become suicidal over the last 2 days because shit does not stop. She had a plan to drive herself into a tree but patient has not been driving for quite some time and has no access to do so. Patient also shares that 1 of the problems with her worsening mood is that she was given only a limited supply of her recent medication refill loxapine and so ran out of it. She said that it is very helpful to her and she wants to get back on it. Patient knows the name of her medication and the appropriate dosing. Patient endorses auditory hallucinations but it is difficult to really determine what she is experiencing and whether this is occurring while she is awake or during dream time. She also endorses visual hallucinations but says it mostly occurs just when she is dreaming; sometimes when she is awake she sees a smoky like spirit type of thing floating around. Complicating matters patient recently diagnosed with UTI which could be contributing to symptoms; started on antibiotic. Discussed with patient Mental Status Exam Mental Status Exam Narrative: Pt is alert and oriented; behavior is cooperative, friendly but tearful and anxious; dressed in casual attire with adequate hygiene; mood is described as depressed and affect congruent, anxious; eye contact appropriate; Speech is normal rate, volume and prosody and not pressured; no psychomotor agitation/retardation present; thought process is mostly goal directed but can get distracted; Thought content is on psychosocial stresses, feeling sad and on tx; otherwise pertinent to relevant topics; no paranoid or delusionary thoughts; intermittent SI; no HI; some intermittent AH and VH; Patients insight and judgment are impaired. Diagnostics Vital Signs (24Hr): Vital Signs - 24 hr 06/30/22 19:13 07/01/22 06:00 Pulse Rate 77 85 Respiratory Rate 17 Blood Pressure 143/77 H 168/82 H Pulse Oximetry 96 BMI result Body Mass Index 36.6 Labs Results: 06/29/22 21:44 06/29/22 21:44 Labs: Laboratory Results - last 48 hr 06/29/22 06/29/22 06/29/22 21:24 21:28 21:44 WBC 9.2 RBC 4.90 Hgb 13.9 Hct 41.8 MCV 85.3 MCH 28.4 MCHC 33.3 RDW 14.0 Plt Count 198 MPV 9.7 Immature Gran % (Auto) 0.2 Neut % (Auto) 45.4 Lymph % (Auto) 42.1 H [place] % (Auto) 7.9 Eos % (Auto) 3.3 Baso % (Auto) 1.1 Lymph # (Auto) 3.9 [place] # (Auto) 0.7 Eos # (Auto) 0.3 Baso # (Auto) 0.1 Abs Immat Gran (auto) 0.02 Absolute Neuts (auto) 4.2 Absolute Nucleated RBC 0.000 Nucleated RBC % (auto) 0.0 Sodium Potassium Chloride Carbon Dioxide Anion Gap BUN Creatinine Estim Creat Clear Calc Estimated GFR POC Glucose 175 H Random Glucose Calcium Magnesium Total Bilirubin AST ALT Alkaline Phosphatase Total Protein Albumin Urine Color Urine Appearance Urine pH Ur Specific [place] Urine Protein Urine Glucose (UA) Urine Ketones Urine Blood Urine Nitrite Ur Leukocyte Esterase Urine RBC Urine WBC Ur Squamous Epith Cells Urine Bacteria Hyaline Casts Salicylates Urine Opiates Screen Urine Fentanyl Screen Acetaminophen Ur Barbiturates Screen Ur Phencyclidine Scrn Ur Amphetamines Screen U Benzodiazepines Scrn Urine Cocaine Screen U Marijuana (THC) Screen Ethyl Alcohol COVID-19 (ALDAIR) Negative COVID-19 Clin Com See Note 06/29/22 06/29/22 06/29/22 21:44 21:44 22:42 WBC RBC Hgb Hct MCV MCH MCHC RDW Plt Count MPV Immature Gran % (Auto) Neut % (Auto) Lymph % (Auto) [place] % (Auto) Eos % (Auto) Baso % (Auto) Lymph # (Auto) [place] # (Auto) Eos # (Auto) Baso # (Auto) Abs Immat Gran (auto) Absolute Neuts (auto) Absolute Nucleated RBC Nucleated RBC % (auto) Sodium 138 Potassium 4.1 Chloride 107 Carbon Dioxide 18 L Anion Gap 17 BUN 20 H Creatinine 1.17 Estim Creat Clear Calc 52.2 Estimated GFR 47 POC Glucose Random Glucose 171 H Calcium 9.4 Magnesium 1.9 Total Bilirubin 0.5 AST 49 H ALT 49 H Alkaline Phosphatase 157 H D Total Protein 8.3 H Albumin 4.4 Urine Color Urine Appearance Urine pH Ur Specific [place] Urine Protein Urine Glucose (UA) Urine Ketones Urine Blood Urine Nitrite Ur Leukocyte Esterase Urine RBC Urine WBC Ur Squamous Epith Cells Urine Bacteria Hyaline Casts Salicylates < 5.0 L Urine Opiates Screen Not Detected Urine Fentanyl Screen Not Detected Acetaminophen < 1 Ur Barbiturates Screen Not Detected Ur Phencyclidine Scrn Not Detected Ur Amphetamines Screen Not Detected U Benzodiazepines Scrn Not Detected Urine Cocaine Screen Not Detected U Marijuana (THC) Screen Not Detected Ethyl Alcohol < 10 COVID-19 (ALDAIR) COVID-19 [id number] [email or web address] Com 06/29/22 06/30/22 07/01/22 22:42 06:01 08:00 WBC RBC Hgb Hct MCV MCH MCHC RDW Plt Count MPV Immature Gran % (Auto) Neut % (Auto) Lymph % (Auto) [place] % (Auto) Eos % (Auto) Baso % (Auto) Lymph # (Auto) [place] # (Auto) Eos # (Auto) Baso # (Auto) Abs Immat Gran (auto) Absolute Neuts (auto) Absolute Nucleated RBC Nucleated RBC % (auto) Sodium Potassium Chloride Carbon Dioxide Anion Gap BUN Creatinine Estim Creat Clear Calc Estimated GFR POC Glucose 115 160 H Random Glucose Calcium Magnesium Total Bilirubin AST ALT Alkaline Phosphatase Total Protein Albumin Urine Color Yellow Urine Appearance Clear Urine pH 5.5 Ur Specific [place] 1.020 Urine Protein Negative Urine Glucose (UA) >=1000 H Urine Ketones Negative Urine Blood Negative Urine Nitrite Positive H Ur Leukocyte Esterase Moderate (2+) H Urine RBC 0-2 Urine WBC >50 H Ur Squamous Epith Cells 6-10 Urine Bacteria 4+ Hyaline Casts 0-2 Salicylates Urine Opiates Screen Urine Fentanyl Screen Acetaminophen Ur Barbiturates Screen Ur Phencyclidine Scrn Ur Amphetamines Screen U Benzodiazepines Scrn Urine Cocaine Screen U Marijuana (THC) Screen Ethyl Alcohol COVID-19 (ALDAIR) COVID-19 Clin Com Medications Medications Current Medications Al Hydroxide/Mg Hydroxide (Magnesium Hydrox/Alum Hydrox 30 Ml Oral.Susp) 30 ml PO Q6H PRN PRN Reason: Heartburn/Nausea Albuterol Sulfate (Albuterol Sulfate 90 Mcg 8 Gm Inhaler) 2 puff INHALE Q6H PRN PRN Reason: shortness of breath or wheezing Amlodipine Besylate (Amlodipine Besylate 5 Mg Tablet) 5 mg PO DAILY [facility]; Protocol Last Admin: 07/01/22 09:06 Dose: 5 mg Atorvastatin Calcium (Atorvastatin Calcium 20 Mg Tablet) 20 mg PO DAILY [facility] Last Admin: 07/01/22 09:06 Dose: 20 mg Benztropine Mesylate (Benztropine Mesylate 0.5 Mg Tablet) 0.5 mg PO BID [facility] Last Admin: 07/01/22 09:06 Dose: 0.5 mg Cefuroxime Axetil (Cefuroxime Axetil 500 Mg Tablet) 500 mg PO DAILY [facility] Last Admin: 07/01/22 09:05 Dose: 500 mg Clonazepam (Clonazepam 0.5 Mg Tablet) 0.5 mg PO TID PRN PRN Reason: anxiety Last Admin: 07/01/22 11:44 Dose: 0.5 mg Cyclobenzaprine HCl (Cyclobenzaprine Hcl 5 Mg Tablet) 5 mg PO TID PRN PRN Reason: muscle spasm Empagliflozin (Empagliflozin 10 Mg Tablet) 10 mg PO DAILY [facility] Last Admin: 07/01/22 09:06 Dose: 10 mg Gabapentin (Gabapentin 100 Mg Capsule) 100 mg PO BID [facility] Last Admin: 07/01/22 09:06 Dose: 100 mg Lisinopril (Lisinopril 10 Mg Tablet) 30 mg PO DAILY [facility]; Protocol Last Admin: 07/01/22 09:05 Dose: 30 mg Loxapine Succinate (Loxapine Succinate 5 Mg Capsule) 5 mg PO BEDTIME [facility] Loxapine Succinate (Loxapine Succinate 5 Mg Capsule) 10 mg PO BID [facility] Loxapine Succinate (Loxapine Succinate 5 Mg Capsule) 5 mg PO DAILY PRN PRN Reason: agitation, anxiety, psychosis Magnesium Hydroxide (Milk Of Magnesia 30 Ml Oral.Susp) 30 ml PO DAILY PRN PRN Reason: Constipation Meclizine HCl (Meclizine Hcl 25 Mg Tablet) 25 mg PO DAILY [facility] Last Admin: 07/01/22 09:06 Dose: 25 mg Memantine (Memantine Hcl 10 Mg Tablet) 10 mg PO BID [facility] Last Admin: 07/01/22 09:06 Dose: 10 mg Mirabegron (Mirabegron 25 Mg Tab.Er.24h) 25 mg PO DAILY [facility] Last Admin: 07/01/22 09:06 Dose: 25 mg Naproxen (Naproxen 500 Mg Tablet) 500 mg PO BID [facility] Last Admin: 07/01/22 09:06 Dose: 500 mg Non-Formulary Medication (Darifenacin) 1 tab PO DAILY [facility] Propranolol HCl (Propranolol Hcl 20 Mg Tablet) 20 mg PO TID [facility]; Protocol Last Admin: 07/01/22 09:05 Dose: 20 mg Senna (Sennosides 8.6 Mg Tablet) 8.6 mg PO BEDTIME [facility] Last Admin: 06/30/22 19:47 Dose: 8.6 mg Sitagliptin Phosphate (Sitagliptin Phosphate 100 Mg Tablet) 100 mg PO DAILY [facility] Last Admin: 07/01/22 09:05 Dose: 100 mg Allergies Allergies Allergy/AdvReac Type Severity Reaction Status Date / Time haloperidol [HALOPERIDOL] Allergy Intermediate SWELLING Verified 05/04/22 12:34 carbamazepine [From Tegretol] Allergy Mild RASH, Verified 05/04/22 12:34 TREMORS lithium [[place]] Allergy Mild RASH, Verified 05/04/22 12:34 CRAWLING OUT OF SKIN olanzapine [From Zyprexa] Allergy Mild RICHARD Verified 05/04/22 12:34 quetiapine [From Seroquel] Allergy Mild SWELLING Verified 05/04/22 12:34 WHOLE BODY, RICHARD topiramate [From TOPAMAX] Allergy Unknown RICHARD, SI Verified 05/04/22 12:34 trazodone [TRAZODONE] Allergy Unknown SYNCOPE Verified 05/04/22 12:34 aripiprazole [From ABILIFY] AdvReac Severe EXTREME SI Verified 05/04/22 12:34 lamotrigine [From Lamictal] AdvReac Mild RICHARD Verified 05/04/22 12:34 modafinil [From Provigil] AdvReac Mild RICHARD Verified 05/04/22 12:34 ALL ANTI DEPRESSENTS Allergy Unknown I GO Uncoded 05/04/22 12:34 MANIC All anti-depressants Allergy Unknown manic, rash Uncoded 05/04/22 12:34 From GEODON Allergy Unknown LETHARGY Uncoded 05/04/22 12:34 From WELLBUTRIN AdvReac Unknown AGITATION, Uncoded 05/04/22 12:34 MAVIS Assessment & Plan Assessment & Plan (1) Bipolar 1 disorder: Status: Acute Code(s): F31.9 - Bipolar disorder, unspecified (2) Post traumatic stress disorder (PTSD): Status: Acute Code(s): F43.10 - Post-traumatic stress disorder, unspecified (3) Mild cognitive impairment: Status: Acute Code(s): G31.84 - Mild cognitive impairment of uncertain or unknown etiology (4) Dissociative identity disorder: Status: Acute Code(s): F44.81 - Dissociative identity disorder Plan Mouna is a 62 y.o. female who carries a dx of Bipolar I DO, Cognitive Impairment, PTSD, Dissociative Identity Disorder, and remote hx of AUD, cocaine use disorder in remission. She presented to [facility] on 06/30/2022 due to SI with plan to run her car into a tree, depression. Precipitating factors include recent deaths in her family, also has been non-adherent with loxapine as she mistakenly thought it was discontinued in OP setting, however it was continued and an additional 5 mg PRN dose was ordered. Pt has a hx of multiple inpatient admissions and has had multiple med trials that have failed due to SEs. Pt has a hx of trauma with reexperiencing, avoidance and hyperarousal symptoms. Has remote hx of cocaine abuse currently in remission. Currently reports mood swings with depressed mood and some sx of hypomania, i.e. poor sleep, increased energy. Combined with recent psychosocial stressors and running out of medications, -reportedly, patient has early-onset dementia which is likely contributory; visual hallucinations are sparse and vague and do not sound like the same quality as Lewy body; will assess for parkinsonian symptoms -patient also has UTI which is likely contributory as well -patient reports that loxapine has been helpful and she wants to get back on home dose. PLAN: Q15 min safety checks, CV Restart Loxapine 10 mg a.m. Restart Loxapine 15 mg q.h.s. (not on formulary and waiting for family to bring in) Continue other home medications UTI: On Ceftin Labs; repeat LFTs that were mildly elevated on admission Monitor response to medications. Monitor for safety in the milieu. Discharge on stabilization. Patient seen. Chart reviewed. Discussed with team. Obtain collateral contact info?as needed I spent minutes with the patient and/or on the patient floor today, greater than?50% of which was spent counseling/coordinating care. Patient educated on: diagnosis, medication risk/benefits and medical condition Informed Consent: understands Reason for contiued inpatient stay Substantial Risk for: inability to function
[2022-07-01 14:07] VITALS: BP 118/77; PULSE 86; RESP 18
[2022-07-01] MEDS: Lidocaine 4 % Patch ADH..PATCH 1 PATCH TRANSDERMA (16:06)
[2022-07-01 17:10] LABS: Glucose, Whole Blood 194 mg/dL (60-115)
[2022-07-01] MEDS: Milk of Magnesia 30 ML ORAL.SUSP PO (17:32)
[2022-07-01 18:00] VITALS: BP 132/84; PULSE 72; RESP 16; TEMP 36.5; O2SAT 99
[2022-07-01] MEDS: Sennosides 8.6 MG TABLET PO (19:52)
[2022-07-01 21:55] LABS: Glucose, Whole Blood 255 mg/dL (60-115)
[2022-07-02 06:00] VITALS: BP 113/72; PULSE 81; RESP 16; TEMP 36.6; O2SAT 95
[2022-07-02 08:02] LABS: Glucose, Whole Blood 215 mg/dL (60-115)
[2022-07-02] MEDS: Benztropine Mesylate 0.5 MG TABLET PO ×2 (08:37→20:20)
[2022-07-02] MEDS: lisinopriL 10 MG TABLET 30 MG PO (08:38)
[2022-07-02] MEDS: SITagliptin Phosphate 100 MG TABLET PO (08:38)
[2022-07-02] MEDS: Propranolol HCL 20 MG TABLET PO ×3 (08:38→20:20)
[2022-07-02] MEDS: amLODIPine Besylate 5 MG TABLET PO (08:38)
[2022-07-02] MEDS: Meclizine HCl 25 MG TABLET PO (08:39)
[2022-07-02] MEDS: Atorvastatin Calcium 20 MG TABLET PO (08:39)
[2022-07-02] MEDS: Memantine HCl 10 MG TABLET PO ×2 (08:39→20:20)
[2022-07-02] MEDS: Empagliflozin 10 MG TABLET PO (08:39)
[2022-07-02] MEDS: NaPROXEN 500 MG TABLET PO ×2 (08:40→20:20)
[2022-07-02] MEDS: Gabapentin 100 MG CAPSULE PO ×2 (08:41→20:20)
[2022-07-02] MEDS: Mirabegron 25 MG TAB.ER.24H PO (09:32)
--- NOTE | 2022-07-02 10:38 | HO.PSYCHPN ---
Subjective Subjective Date of Service: 07/02/22 Reason For Visit: DEPRESSION / SI Interim History: pt reports she's having a hard time today and reports significant flashback to past trauma which she is really effecting her at which point pt becomes tearful and says it's effecting my body. She asks if she can have a one time dose of Clonazepam 1mg (instead of regular 0.5mg); pt has taken less than provided so far during admission. She then says she feels as if she's about to have a psychotic episode; cant describe it more, but agrees to one time dose of Vraylar while waiting for Loxapine to arrive from family. Pt says she's feeling suicidal but will not harm self on unit. Leather Cart[employer] Belt Maker talked w/ Jaylen, pt's daughter who agrees that patients decomp likely due to multiple issues such stress at home, recent deaths in family, her daughters marriage, being off meds and getting a uti. Fide will make sure Loxapine gets to pharm Mental Status Exam Mental Status Exam Narrative: Pt is alert and oriented; behavior is cooperative, friendly but tearful and anxious; dressed in casual attire with adequate hygiene; mood is described as having flashbacks and affect is anxious; eye contact appropriate; Speech is normal rate, volume and prosody and not pressured; some psychomotor retardation present; thought process is mostly goal directed but can get distracted; Thought content is on past trauma, psychosocial stresses, feeling sad and on tx; otherwise pertinent to relevant topics; no paranoid or delusionary thoughts; +SI; no HI; some intermittent AH and VH; Patients insight and judgment are impaired. Diagnostics Vital Signs (24Hr): Vital Signs - 24 hr 07/01/22 14:07 07/01/22 18:00 Temperature 97.7 F Pulse Rate 86 72 Respiratory Rate 18 16 Blood Pressure 118/77 132/84 Pulse Oximetry 99 Oxygen Delivery Method Room Air BMI result Body Mass Index 36.6 Labs Results: 06/29/22 21:44 06/29/22 21:44 Labs: Laboratory Results - last 48 hr 07/01/22 07/01/22 07/01/22 08:00 17:00 21:44 POC Glucose 160 H 194 H 255 H 07/02/22 07:51 POC Glucose 215 H Medications Medications Current Medications Al Hydroxide/Mg Hydroxide (Magnesium Hydrox/Alum Hydrox 30 Ml Oral.Susp) 30 ml PO Q6H PRN PRN Reason: Heartburn/Nausea Albuterol Sulfate (Albuterol Sulfate 90 Mcg 8 Gm Inhaler) 2 puff INHALE Q6H PRN PRN Reason: shortness of breath or wheezing Amlodipine Besylate (Amlodipine Besylate 5 Mg Tablet) 5 mg PO DAILY [facility]; Protocol Last Admin: 07/02/22 08:38 Dose: 5 mg Atorvastatin Calcium (Atorvastatin Calcium 20 Mg Tablet) 20 mg PO DAILY [facility] Last Admin: 07/02/22 08:39 Dose: 20 mg Benztropine Mesylate (Benztropine Mesylate 0.5 Mg Tablet) 0.5 mg PO BID [facility] Last Admin: 07/02/22 08:37 Dose: 0.5 mg Cefuroxime Axetil (Cefuroxime Axetil 500 Mg Tablet) 500 mg PO DAILY [facility] Last Admin: 07/02/22 09:32 Dose: 500 mg Clonazepam (Clonazepam 0.5 Mg Tablet) 0.5 mg PO TID PRN PRN Reason: anxiety Last Admin: 07/01/22 23:57 Dose: 0.5 mg Cyclobenzaprine HCl (Cyclobenzaprine Hcl 5 Mg Tablet) 5 mg PO TID PRN PRN Reason: muscle spasm Empagliflozin (Empagliflozin 10 Mg Tablet) 10 mg PO DAILY [facility] Last Admin: 07/02/22 08:39 Dose: 10 mg Gabapentin (Gabapentin 100 Mg Capsule) 100 mg PO BID [facility] Last Admin: 07/02/22 08:41 Dose: 100 mg Lidocaine (Lidocaine 4 % Patch Adh..Patch) 1 patch TRANSDERMA DAILY PRN; Protocol PRN Reason: back pain Last Admin: 07/01/22 16:06 Dose: 1 patch Lisinopril (Lisinopril 10 Mg Tablet) 30 mg PO DAILY [facility]; Protocol Last Admin: 07/02/22 08:38 Dose: 30 mg Magnesium Hydroxide (Milk Of Magnesia 30 Ml Oral.Susp) 30 ml PO DAILY PRN PRN Reason: Constipation Last Admin: 07/01/22 17:32 Dose: 30 ml Meclizine HCl (Meclizine Hcl 25 Mg Tablet) 25 mg PO DAILY [facility] Last Admin: 07/02/22 08:39 Dose: 25 mg Memantine (Memantine Hcl 10 Mg Tablet) 10 mg PO BID [facility] Last Admin: 07/02/22 08:39 Dose: 10 mg Mirabegron (Mirabegron 25 Mg Tab.Er.24h) 25 mg PO DAILY [facility] Last Admin: 07/02/22 09:32 Dose: 25 mg Naproxen (Naproxen 500 Mg Tablet) 500 mg PO BID [facility] Last Admin: 07/02/22 08:40 Dose: 500 mg Non-Formulary Medication (Darifenacin) 1 tab PO DAILY [facility] Non-Formulary Medication (Loxapine) 10 mg PO DAILY [facility] Non-Formulary Medication (Loxapin) 15 mg PO BEDTIME [facility] Non-Formulary Medication (Loxapine) 5 mg PO DAILY PRN PRN Reason: agitation, anxiety, pychosis Propranolol HCl (Propranolol Hcl 20 Mg Tablet) 20 mg PO TID [facility]; Protocol Last Admin: 07/02/22 08:38 Dose: 20 mg Senna (Sennosides 8.6 Mg Tablet) 8.6 mg PO BEDTIME [facility] Last Admin: 07/01/22 19:52 Dose: 8.6 mg Sitagliptin Phosphate (Sitagliptin Phosphate 100 Mg Tablet) 100 mg PO DAILY [facility] Last Admin: 07/02/22 08:38 Dose: 100 mg Allergies Allergies Allergy/AdvReac Type Severity Reaction Status Date / Time haloperidol [HALOPERIDOL] Allergy Intermediate SWELLING Verified 05/04/22 12:34 carbamazepine [From Tegretol] Allergy Mild RASH, Verified 05/04/22 12:34 TREMORS lithium [[place]] Allergy Mild RASH, Verified 05/04/22 12:34 CRAWLING OUT OF SKIN olanzapine [From Zyprexa] Allergy Mild RICHARD Verified 05/04/22 12:34 quetiapine [From Seroquel] Allergy Mild SWELLING Verified 05/04/22 12:34 WHOLE BODY, RICHARD topiramate [From TOPAMAX] Allergy Unknown RICHARD, SI Verified 05/04/22 12:34 trazodone [TRAZODONE] Allergy Unknown SYNCOPE Verified 05/04/22 12:34 aripiprazole [From ABILIFY] AdvReac Severe EXTREME SI Verified 05/04/22 12:34 lamotrigine [From Lamictal] AdvReac Mild RICHARD Verified 05/04/22 12:34 modafinil [From Provigil] AdvReac Mild RICHARD Verified 05/04/22 12:34 ALL ANTI DEPRESSENTS Allergy Unknown I GO Uncoded 05/04/22 12:34 MANIC All anti-depressants Allergy Unknown manic, rash Uncoded 05/04/22 12:34 From GEODON Allergy Unknown LETHARGY Uncoded 05/04/22 12:34 From WELLBUTRIN AdvReac Unknown AGITATION, Uncoded 05/04/22 12:34 MAVIS Assessment & Plan Assessment & Plan (1) Bipolar 1 disorder: Status: Acute Code(s): F31.9 - Bipolar disorder, unspecified (2) Post traumatic stress disorder (PTSD): Status: Acute Code(s): F43.10 - Post-traumatic stress disorder, unspecified (3) Mild cognitive impairment: Status: Acute Code(s): G31.84 - Mild cognitive impairment of uncertain or unknown etiology (4) Dissociative identity disorder: Status: Acute Code(s): F44.81 - Dissociative identity disorder Plan Mouna is a 62 y.o. female who carries a dx of Bipolar I DO, Cognitive Impairment, PTSD, Dissociative Identity Disorder, and remote hx of AUD, cocaine use disorder in remission. She presented to [facility] on 06/30/2022 due to SI with plan to run her car into a tree, depression. Precipitating factors include recent deaths in her family, also has been non-adherent with loxapine as she mistakenly thought it was discontinued in OP setting, however it was continued and an additional 5 mg PRN dose was ordered. Pt has a hx of multiple inpatient admissions and has had multiple med trials that have failed due to SEs. Pt has a hx of trauma with reexperiencing, avoidance and hyperarousal symptoms. Has remote hx of cocaine abuse currently in remission. Currently reports mood swings with depressed mood and some sx of hypomania, i.e. poor sleep, increased energy. Combined with recent psychosocial stressors and running out of medications, -reportedly, patient has early-onset dementia which is likely contributory; visual hallucinations are sparse and vague and do not sound like the same quality as Lewy body; will assess for parkinsonian symptoms -patient also has UTI which is likely contributory as well -patient reports that loxapine has been helpful and she wants to get back on home dose. 07/03 pt struggling w/ ptsd flashbacks, anxiety, AH one time dose of clonazepam 1mg and vraylar 3 mg while waiting for Loxapine PLAN: Q15 min safety checks, CV will Restart Loxapine 10 mg a.m. robin Restart Loxapine 15 mg q.h.s. (not on formulary and waiting for family to bring in) Continue other home medications UTI: On Ceftin Labs; repeat LFTs that were mildly elevated on admission Monitor response to medications. Monitor for safety in the milieu. Discharge on stabilization. Patient seen. Chart reviewed. Discussed with team. Obtain collateral contact info?as needed I spent minutes with the patient and/or on the patient floor today, greater than?50% of which was spent counseling/coordinating care. Patient educated on: diagnosis and medication risk/benefits Informed Consent: understands Reason for contiued inpatient stay Substantial Risk for: inability to function
[2022-07-02] MEDS: Cariprazine HCl 3 MG CAPSULE PO (15:54)
[2022-07-02] MEDS: clonazePAM 1 MG TABLET PO (16:36)
[2022-07-02 18:00] VITALS: BP 140/72; PULSE 80
[2022-07-02] MEDS: Sennosides 8.6 MG TABLET PO (20:20)
[2022-07-03 06:00] VITALS: BP 110/68; PULSE 78; RESP 16; TEMP 36.7; O2SAT 96
[2022-07-03] MEDS: Meclizine HCl 25 MG TABLET PO (08:29)
[2022-07-03] MEDS: Mirabegron 25 MG TAB.ER.24H PO (08:29)
[2022-07-03] MEDS: lisinopriL 10 MG TABLET 30 MG PO (08:29)
[2022-07-03] MEDS: Benztropine Mesylate 0.5 MG TABLET PO ×2 (08:30→19:02)
[2022-07-03] MEDS: amLODIPine Besylate 5 MG TABLET PO (08:30)
[2022-07-03] MEDS: Gabapentin 100 MG CAPSULE PO ×2 (08:30→19:01)
[2022-07-03] MEDS: Empagliflozin 10 MG TABLET PO (08:30)
[2022-07-03] MEDS: Memantine HCl 10 MG TABLET PO ×2 (08:30→19:02)
[2022-07-03] MEDS: SITagliptin Phosphate 100 MG TABLET PO (08:30)
[2022-07-03] MEDS: Propranolol HCL 20 MG TABLET PO ×3 (08:30→19:02)
[2022-07-03] MEDS: NaPROXEN 500 MG TABLET PO ×2 (08:30→19:01)
[2022-07-03] MEDS: Atorvastatin Calcium 20 MG TABLET PO (08:30)
[2022-07-03 09:01] LABS: Ammonia 21 umol/L (13-55)
[2022-07-03 09:27] LABS: Alanine Aminotransferase 49 U/L (0-31); Albumin Level 4.3 g/dL (3.5-5.0); Alkaline Phosphatase 152 U/L (39-117); Aspartate Amino Transferase 40 U/L (5-31); Bilirubin Direct 0.2 mg/dL (0.0-0.5); Bilirubin Total 0.6 mg/dL (0.0-1.0); Total Protein 8.3 g/dL (6.5-8.0)
--- NOTE | 2022-07-03 11:40 | HO.PSYCHPN ---
Subjective Subjective Date of Service: 07/03/22 Reason For Visit: DEPRESSION / SI Interim History: reports feeling better today and said Vraylar dose helped; she is now back on Loxipine and wants to continue. Pt says today, no AH, No SI and that flashbacks have resolved. She feels in a better mood and is hopeful about returning to her regular self. Pt's affect nocticeably brighter and pt more fluid in conversation Mental Status Exam Mental Status Exam Narrative: Pt is alert and oriented; behavior is cooperative, calm, friendly; dressed in casual attire with adequate hygiene; mood is described as better and affect is congruent, brighter, calm; eye contact appropriate; Speech is normal rate, volume and prosody and not pressured; no psychomotor retardation present; thought process is goal directed; Thought content is overcoming anxiety, past trauma; on tx; otherwise pertinent to relevant topics; no paranoid or delusionary thoughts; Denies SI; no HI; denies AH and VH; Patients insight and judgment are improving. Diagnostics Vital Signs (24Hr): Vital Signs - 24 hr 07/02/22 18:00 07/03/22 06:00 Temperature 98.0 F Pulse Rate 80 78 Respiratory Rate 16 Blood Pressure 140/72 H 110/68 Pulse Oximetry 96 Oxygen Delivery Method Room Air BMI result Body Mass Index 36.6 Labs Results: 06/29/22 21:44 06/29/22 21:44 Labs: Laboratory Results - last 48 hr 07/01/22 07/01/22 07/02/22 17:00 21:44 07:51 POC Glucose 194 H 255 H 215 H Total Bilirubin Direct Bilirubin AST ALT Alkaline Phosphatase Ammonia Total Protein Albumin 07/03/22 07/03/22 08:46 08:46 POC Glucose Total Bilirubin 0.6 Direct Bilirubin 0.2 AST 40 H ALT 49 H Alkaline Phosphatase 152 H Ammonia 21 Total Protein 8.3 H Albumin 4.3 Medications Medications Current Medications Al Hydroxide/Mg Hydroxide (Magnesium Hydrox/Alum Hydrox 30 Ml Oral.Susp) 30 ml PO Q6H PRN PRN Reason: Heartburn/Nausea Albuterol Sulfate (Albuterol Sulfate 90 Mcg 8 Gm Inhaler) 2 puff INHALE Q6H PRN PRN Reason: shortness of breath or wheezing Amlodipine Besylate (Amlodipine Besylate 5 Mg Tablet) 5 mg PO DAILY [facility]; Protocol Last Admin: 07/03/22 08:30 Dose: 5 mg Atorvastatin Calcium (Atorvastatin Calcium 20 Mg Tablet) 20 mg PO DAILY [facility] Last Admin: 07/03/22 08:30 Dose: 20 mg Benztropine Mesylate (Benztropine Mesylate 0.5 Mg Tablet) 0.5 mg PO BID [facility] Last Admin: 07/03/22 08:30 Dose: 0.5 mg Cefuroxime Axetil (Cefuroxime Axetil 500 Mg Tablet) 500 mg PO DAILY [facility] Last Admin: 07/03/22 08:30 Dose: 500 mg Clonazepam (Clonazepam 0.5 Mg Tablet) 0.5 mg PO TID PRN PRN Reason: anxiety Last Admin: 07/01/22 23:57 Dose: 0.5 mg Cyclobenzaprine HCl (Cyclobenzaprine Hcl 5 Mg Tablet) 5 mg PO TID PRN PRN Reason: muscle spasm Empagliflozin (Empagliflozin 10 Mg Tablet) 10 mg PO DAILY [facility] Last Admin: 07/03/22 08:30 Dose: 10 mg Gabapentin (Gabapentin 100 Mg Capsule) 100 mg PO BID [facility] Last Admin: 07/03/22 08:30 Dose: 100 mg Lidocaine (Lidocaine 4 % Patch Adh..Patch) 1 patch TRANSDERMA DAILY PRN; Protocol PRN Reason: back pain Last Admin: 07/01/22 16:06 Dose: 1 patch Lisinopril (Lisinopril 10 Mg Tablet) 30 mg PO DAILY [facility]; Protocol Last Admin: 07/03/22 08:29 Dose: 30 mg Loxapine Succinate (Patient Own Med Loxapine 10 Mg) 10 mg PO BID [facility] Last Admin: 07/03/22 09:09 Dose: 10 mg Magnesium Hydroxide (Milk Of Magnesia 30 Ml Oral.Susp) 30 ml PO DAILY PRN PRN Reason: Constipation Last Admin: 07/01/22 17:32 Dose: 30 ml Meclizine HCl (Meclizine Hcl 25 Mg Tablet) 25 mg PO DAILY [facility] Last Admin: 07/03/22 08:29 Dose: 25 mg Memantine (Memantine Hcl 10 Mg Tablet) 10 mg PO BID [facility] Last Admin: 07/03/22 08:30 Dose: 10 mg Mirabegron (Mirabegron 25 Mg Tab.Er.24h) 25 mg PO DAILY [facility] Last Admin: 07/03/22 08:29 Dose: 25 mg Naproxen (Naproxen 500 Mg Tablet) 500 mg PO BID [facility] Last Admin: 07/03/22 08:30 Dose: 500 mg Non-Formulary Medication (Darifenacin) 1 tab PO DAILY [facility] Non-Formulary Medication (Loxapine) 5 mg PO DAILY PRN PRN Reason: agitation, anxiety, pychosis Propranolol HCl (Propranolol Hcl 20 Mg Tablet) 20 mg PO TID [facility]; Protocol Last Admin: 07/03/22 08:30 Dose: 20 mg Senna (Sennosides 8.6 Mg Tablet) 8.6 mg PO BEDTIME [facility] Last Admin: 07/02/22 20:20 Dose: 8.6 mg Sitagliptin Phosphate (Sitagliptin Phosphate 100 Mg Tablet) 100 mg PO DAILY [facility] Last Admin: 07/03/22 08:30 Dose: 100 mg Allergies Allergies Allergy/AdvReac Type Severity Reaction Status Date / Time haloperidol [HALOPERIDOL] Allergy Intermediate SWELLING Verified 05/04/22 12:34 carbamazepine [From Tegretol] Allergy Mild RASH, Verified 05/04/22 12:34 TREMORS lithium [[place]] Allergy Mild RASH, Verified 05/04/22 12:34 CRAWLING OUT OF SKIN olanzapine [From Zyprexa] Allergy Mild RICHARD Verified 05/04/22 12:34 quetiapine [From Seroquel] Allergy Mild SWELLING Verified 05/04/22 12:34 WHOLE BODY, RICHARD topiramate [From TOPAMAX] Allergy Unknown RICHARD, SI Verified 05/04/22 12:34 trazodone [TRAZODONE] Allergy Unknown SYNCOPE Verified 05/04/22 12:34 aripiprazole [From ABILIFY] AdvReac Severe EXTREME SI Verified 05/04/22 12:34 lamotrigine [From Lamictal] AdvReac Mild RICHARD Verified 05/04/22 12:34 modafinil [From Provigil] AdvReac Mild RICHARD Verified 05/04/22 12:34 ALL ANTI DEPRESSENTS Allergy Unknown I GO Uncoded 05/04/22 12:34 MANIC All anti-depressants Allergy Unknown manic, rash Uncoded 05/04/22 12:34 From GEODON Allergy Unknown LETHARGY Uncoded 05/04/22 12:34 From WELLBUTRIN AdvReac Unknown AGITATION, Uncoded 05/04/22 12:34 MAVIS Assessment & Plan Assessment & Plan (1) Bipolar 1 disorder: Status: Acute Code(s): F31.9 - Bipolar disorder, unspecified (2) Post traumatic stress disorder (PTSD): Status: Acute Code(s): F43.10 - Post-traumatic stress disorder, unspecified (3) Mild cognitive impairment: Status: Acute Code(s): G31.84 - Mild cognitive impairment of uncertain or unknown etiology (4) Dissociative identity disorder: Status: Acute Code(s): F44.81 - Dissociative identity disorder Plan Mouna is a 62 y.o. female who carries a dx of Bipolar I DO, Cognitive Impairment, PTSD, Dissociative Identity Disorder, and remote hx of AUD, cocaine use disorder in remission. She [place] [facility] [facility] [place] due to SI with plan to run her car into a tree, depression. Precipitating factors include recent deaths in her family, also has been non-adherent with loxapine as she mistakenly thought it was discontinued in OP setting, however it was continued and an additional 5 mg PRN dose was ordered. Pt has a hx of multiple inpatient admissions and has had multiple med trials that have failed due to SEs. Pt has a hx of trauma with reexperiencing, avoidance and hyperarousal symptoms. Has remote hx of cocaine abuse currently in remission. Currently reports mood swings with depressed mood and some sx of hypomania, i.e. poor sleep, increased energy. Combined with recent psychosocial stressors and running out of medications, -reportedly, patient has early-onset dementia which is likely contributory; visual hallucinations are sparse and vague and do not sound like the same quality as Lewy body; will assess for parkinsonian symptoms -patient also has UTI which is likely contributory as well -patient reports that loxapine has been helpful and she wants to get back on home dose. 07/03 pt struggling w/ ptsd flashbacks, anxiety, AH one time dose of clonazepam 1mg and vraylar 3 mg while waiting for Loxapine PLAN: Q15 min safety checks, CV Loxapine 10 mg a.m. Loxapine 15 mg q.h.s. Continue other home medications UTI: On Ceftin Labs; repeat LFTs that were mildly elevated on admission Monitor response to medications. Monitor for safety in the milieu. Discharge on stabilization. Patient seen. Chart reviewed. Discussed with team. Obtain collateral contact info?as needed I spent minutes with the patient and/or on the patient floor today, greater than?50% of which was spent counseling/coordinating care. Patient educated on: diagnosis and medication risk/benefits Informed Consent: understands Reason for contiued inpatient stay Substantial Risk for: med/psych decompensation
[2022-07-03] MEDS: Sennosides 8.6 MG TABLET PO (19:02)
[2022-07-03] MEDS: clonazePAM 0.5 MG TABLET PO (19:02)
[2022-07-03 19:18] VITALS: BP 145/65; PULSE 70
[2022-07-03 19:50] LABS: Glucose, Whole Blood 193 mg/dL (60-115)
[2022-07-04] MEDS: Acetaminophen 325 MG TABLET 650 MG PO ×2 (02:59→12:23)
[2022-07-04 08:45] VITALS: BP 132/71; PULSE 73; RESP 18; TEMP 36.6; O2SAT 97
[2022-07-04 09:11] LABS: Glucose, Whole Blood 206 mg/dL (60-115)
[2022-07-04] MEDS: lisinopriL 10 MG TABLET 30 MG PO (09:12)
[2022-07-04] MEDS: Propranolol HCL 20 MG TABLET PO ×3 (09:13→19:22)
[2022-07-04] MEDS: Memantine HCl 10 MG TABLET PO ×2 (09:13→19:22)
[2022-07-04] MEDS: amLODIPine Besylate 5 MG TABLET PO (09:13)
[2022-07-04] MEDS: Meclizine HCl 25 MG TABLET PO (09:13)
[2022-07-04] MEDS: Mirabegron 25 MG TAB.ER.24H PO (09:13)
[2022-07-04] MEDS: NaPROXEN 500 MG TABLET PO ×2 (09:13→19:22)
[2022-07-04] MEDS: Empagliflozin 10 MG TABLET PO (09:13)
[2022-07-04] MEDS: SITagliptin Phosphate 100 MG TABLET PO (09:13)
[2022-07-04] MEDS: Atorvastatin Calcium 20 MG TABLET PO (09:13)
[2022-07-04] MEDS: Gabapentin 100 MG CAPSULE PO ×2 (09:13→19:22)
[2022-07-04] MEDS: Benztropine Mesylate 0.5 MG TABLET PO ×2 (09:13→19:22)
--- NOTE | 2022-07-04 16:09 | HO.PSYCHPN ---
Subjective Subjective Date of Service: 07/04/22 Reason For Visit: DEPRESSION / SI Interim History: And patient. Discussed with Nursing. No acute issues. Overall patient feels that her mood is much improved. Sleep better. Hopeful that medications will continue to be helpful. No SI. No psychosis. Looking forward to discharge this week feeling supported by her daughter and fiance Medication Compliance: Yes Side effects from medications: No Attending Groups: Yes Review of Systems Acute medical concerns: No Review of Systems Review of Systems Unremarkable Mental Status Exam Mental Status Exam Narrative: Pleasant. Engage. Organized. Euthymic. No SI. No HI. No agitation or psychosis. Insight judgment fair Diagnostics Vital Signs (24Hr): Vital Signs - 24 hr 07/03/22 19:18 07/04/22 08:45 Temperature 97.9 F Pulse Rate 70 73 Respiratory Rate 18 Blood Pressure 145/65 H 132/71 Pulse Oximetry 97 Oxygen Delivery Method Room Air BMI result Body Mass Index 36.6 Labs Results: 06/29/22 21:44 06/29/22 21:44 Labs: Laboratory Results - last 48 hr 07/03/22 07/03/22 07/03/22 08:46 08:46 19:46 POC Glucose 193 H Total Bilirubin 0.6 Direct Bilirubin 0.2 AST 40 H ALT 49 H Alkaline Phosphatase 152 H Ammonia 21 Total Protein 8.3 H Albumin 4.3 07/04/22 09:05 POC Glucose 206 H Total Bilirubin Direct Bilirubin AST ALT Alkaline Phosphatase Ammonia Total Protein Albumin Medications Medications Current Medications Acetaminophen (Acetaminophen 325 Mg Tablet) 650 mg PO Q8H PRN PRN Reason: Pain, Mild (Pain Scale 1-3) Last Admin: 07/04/22 12:23 Dose: 650 mg Al Hydroxide/Mg Hydroxide (Magnesium Hydrox/Alum Hydrox 30 Ml Oral.Susp) 30 ml PO Q6H PRN PRN Reason: Heartburn/Nausea Albuterol Sulfate (Albuterol Sulfate 90 Mcg 8 Gm Inhaler) 2 puff INHALE Q6H PRN PRN Reason: shortness of breath or wheezing Amlodipine Besylate (Amlodipine Besylate 5 Mg Tablet) 5 mg PO DAILY [facility]; Protocol Last Admin: 07/04/22 09:13 Dose: 5 mg Atorvastatin Calcium (Atorvastatin Calcium 20 Mg Tablet) 20 mg PO DAILY [facility] Last Admin: 07/04/22 09:13 Dose: 20 mg Benztropine Mesylate (Benztropine Mesylate 0.5 Mg Tablet) 0.5 mg PO BID [facility] Last Admin: 07/04/22 09:13 Dose: 0.5 mg Cefuroxime Axetil (Cefuroxime Axetil 500 Mg Tablet) 500 mg PO DAILY [facility] Last Admin: 07/04/22 09:13 Dose: 500 mg Clonazepam (Clonazepam 0.5 Mg Tablet) 0.5 mg PO TID PRN PRN Reason: anxiety Last Admin: 07/03/22 19:02 Dose: 0.5 mg Cyclobenzaprine HCl (Cyclobenzaprine Hcl 5 Mg Tablet) 5 mg PO TID PRN PRN Reason: muscle spasm Empagliflozin (Empagliflozin 10 Mg Tablet) 10 mg PO DAILY [facility] Last Admin: 07/04/22 09:13 Dose: 10 mg Gabapentin (Gabapentin 100 Mg Capsule) 100 mg PO BID [facility] Last Admin: 07/04/22 09:13 Dose: 100 mg Lidocaine (Lidocaine 4 % Patch Adh..Patch) 1 patch TRANSDERMA DAILY PRN; Protocol PRN Reason: back pain Last Admin: 07/01/22 16:06 Dose: 1 patch Lisinopril (Lisinopril 10 Mg Tablet) 30 mg PO DAILY [facility]; Protocol Last Admin: 07/04/22 09:12 Dose: 30 mg Loxapine Succinate (Patient Own Med Loxapine 10 Mg) 10 mg PO BID [facility] Last Admin: 07/04/22 09:14 Dose: 10 mg Magnesium Hydroxide (Milk Of Magnesia 30 Ml Oral.Susp) 30 ml PO DAILY PRN PRN Reason: Constipation Last Admin: 07/01/22 17:32 Dose: 30 ml Meclizine HCl (Meclizine Hcl 25 Mg Tablet) 25 mg PO DAILY [facility] Last Admin: 07/04/22 09:13 Dose: 25 mg Memantine (Memantine Hcl 10 Mg Tablet) 10 mg PO BID [facility] Last Admin: 07/04/22 09:13 Dose: 10 mg Mirabegron (Mirabegron 25 Mg Tab.Er.24h) 25 mg PO DAILY [facility] Last Admin: 07/04/22 09:13 Dose: 25 mg Naproxen (Naproxen 500 Mg Tablet) 500 mg PO BID [facility] Last Admin: 07/04/22 09:13 Dose: 500 mg Non-Formulary Medication (Darifenacin) 1 tab PO DAILY [facility] Non-Formulary Medication (Loxapine) 5 mg PO DAILY PRN PRN Reason: agitation, anxiety, pychosis Propranolol HCl (Propranolol Hcl 20 Mg Tablet) 20 mg PO TID [facility]; Protocol Last Admin: 07/04/22 14:03 Dose: 20 mg Senna (Sennosides 8.6 Mg Tablet) 8.6 mg PO BEDTIME [facility] Last Admin: 07/03/22 19:02 Dose: 8.6 mg Sitagliptin Phosphate (Sitagliptin Phosphate 100 Mg Tablet) 100 mg PO DAILY [facility] Last Admin: 07/04/22 09:13 Dose: 100 mg Allergies Allergies Allergy/AdvReac Type Severity Reaction Status Date / Time haloperidol [HALOPERIDOL] Allergy Intermediate SWELLING Verified 05/04/22 12:34 carbamazepine [From Tegretol] Allergy Mild RASH, Verified 05/04/22 12:34 TREMORS lithium [[place]] Allergy Mild RASH, Verified 05/04/22 12:34 CRAWLING OUT OF SKIN olanzapine [From Zyprexa] Allergy Mild RICHARD Verified 05/04/22 12:34 quetiapine [From Seroquel] Allergy Mild SWELLING Verified 05/04/22 12:34 WHOLE BODY, RICHARD topiramate [From TOPAMAX] Allergy Unknown RICHARD, SI Verified 05/04/22 12:34 trazodone [TRAZODONE] Allergy Unknown SYNCOPE Verified 05/04/22 12:34 aripiprazole [From ABILIFY] AdvReac Severe EXTREME SI Verified 05/04/22 12:34 lamotrigine [From Lamictal] AdvReac Mild RICHARD Verified 05/04/22 12:34 modafinil [From Provigil] AdvReac Mild RICHARD Verified 05/04/22 12:34 ALL ANTI DEPRESSENTS Allergy Unknown I GO Uncoded 05/04/22 12:34 MANIC All anti-depressants Allergy Unknown manic, rash Uncoded 05/04/22 12:34 From GEODON Allergy Unknown LETHARGY Uncoded 05/04/22 12:34 From WELLBUTRIN AdvReac Unknown AGITATION, Uncoded 05/04/22 12:34 MAVIS Assessment & Plan Assessment & Plan (1) Bipolar 1 disorder: Status: Acute Code(s): F31.9 - Bipolar disorder, unspecified (2) Post traumatic stress disorder (PTSD): Status: Acute Code(s): F43.10 - Post-traumatic stress disorder, unspecified (3) Mild cognitive impairment: Status: Acute Code(s): G31.84 - Mild cognitive impairment of uncertain or unknown etiology (4) Dissociative identity disorder: Status: Acute Code(s): F44.81 - Dissociative identity disorder Plan Mouna is a 62 y.o. female who carries a dx of Bipolar I DO, Cognitive Impairment, PTSD, Dissociative Identity Disorder, and remote hx of AUD, cocaine use disorder in remission. She presented to [facility] [facility] on 06/30/2022 due to SI with plan to run her car into a tree, depression. Precipitating factors include recent deaths in her family, also has been non-adherent with loxapine as she mistakenly thought it was discontinued in OP setting, however it was continued and an additional 5 mg PRN dose was ordered. Pt has a hx of multiple inpatient admissions and has had multiple med trials that have failed due to SEs. Pt has a hx of trauma with reexperiencing, avoidance and hyperarousal symptoms. Has remote hx of cocaine abuse currently in remission. Currently reports mood swings with depressed mood and some sx of hypomania, i.e. poor sleep, increased energy. Combined with recent psychosocial stressors and running out of medications, -reportedly, patient has early-onset dementia which is likely contributory; visual hallucinations are sparse and vague and do not sound like the same quality as Lewy body; will assess for parkinsonian symptoms -patient also has UTI which is likely contributory as well -patient reports that loxapine has been helpful and she wants to get back on home dose. 07/03 pt struggling w/ ptsd flashbacks, anxiety, AH one time dose of clonazepam 1mg and vraylar 3 mg while waiting for Loxapine 07/04/2022: No changes PLAN: Q15 min safety checks, CV Loxapine 10 mg a.m. Loxapine 15 mg q.h.s. Continue other home medications UTI: On Ceftin Labs; repeat LFTs that were mildly elevated on admission Monitor response to medications. Monitor for safety in the milieu. Discharge on stabilization. Patient seen. Chart reviewed. Discussed with team. Obtain collateral contact info?as needed I spent minutes with the patient and/or on the patient floor today, greater than?50% of which was spent counseling/coordinating care. Reason for contiued inpatient stay Substantial Risk for: rapid decompensation
[2022-07-04 18:00] VITALS: BP 145/68; PULSE 87
[2022-07-04] MEDS: Sennosides 8.6 MG TABLET PO (19:22)
[2022-07-04] MEDS: clonazePAM 0.5 MG TABLET PO (19:22)
[2022-07-04 19:56] LABS: Glucose, Whole Blood 253 mg/dL (60-115)
[2022-07-05] MEDS: Acetaminophen 325 MG TABLET 650 MG PO ×2 (03:12→17:14)
[2022-07-05] MEDS: Milk of Magnesia 30 ML ORAL.SUSP PO (03:30)
[2022-07-05 06:00] VITALS: BP 120/89; PULSE 78; RESP 18; TEMP 36.6; O2SAT 95
[2022-07-05 08:32] LABS: Glucose, Whole Blood 149 mg/dL (60-115)
[2022-07-05] MEDS: lisinopriL 10 MG TABLET 30 MG PO (08:39)
[2022-07-05] MEDS: Benztropine Mesylate 0.5 MG TABLET PO ×2 (08:39→18:50)
[2022-07-05] MEDS: Memantine HCl 10 MG TABLET PO ×2 (08:39→18:50)
[2022-07-05] MEDS: Propranolol HCL 20 MG TABLET PO ×3 (08:39→18:49)
[2022-07-05] MEDS: NaPROXEN 500 MG TABLET PO ×2 (08:39→18:49)
[2022-07-05] MEDS: Gabapentin 100 MG CAPSULE PO ×2 (08:40→18:49)
[2022-07-05] MEDS: Mirabegron 25 MG TAB.ER.24H PO (08:40)
[2022-07-05] MEDS: Meclizine HCl 25 MG TABLET PO (08:40)
[2022-07-05] MEDS: SITagliptin Phosphate 100 MG TABLET PO (08:40)
[2022-07-05] MEDS: amLODIPine Besylate 5 MG TABLET PO (08:40)
[2022-07-05] MEDS: Atorvastatin Calcium 20 MG TABLET PO (08:40)
[2022-07-05] MEDS: Empagliflozin 10 MG TABLET PO (08:40)
--- NOTE | 2022-07-05 13:03 | HO.PSYCHPN ---
Subjective Subjective Date of Service: 07/05/22 Reason For Visit: DEPRESSION / SI Interim History: Discussed with Nursing. No acute issues. Overall patient continues to feel that her mood is much improved. Sleep better. Hopeful that medications will continue to be helpful. No SI. No psychosis. Looking forward to discharge this week feeling supported by family and would like to discuss discharge planning and date with treatment team tomorrow Medication Compliance: Yes Side effects from medications: No Attending Groups: Yes Review of Systems Acute medical concerns: No Review of Systems Review of Systems Unremarkable Mental Status Exam Mental Status Exam Narrative: Pleasant. Engage. Organized. Euthymic. No SI. No HI. No agitation or psychosis. Insight judgment fair Diagnostics Vital Signs (24Hr): Vital Signs - 24 hr 07/04/22 18:00 07/05/22 06:00 Temperature 97.9 F Pulse Rate 87 78 Respiratory Rate 18 Blood Pressure 145/68 H 120/89 Pulse Oximetry 95 Oxygen Delivery Method Room Air BMI result Body Mass Index 36.6 Labs Results: 06/29/22 21:44 06/29/22 21:44 Labs: Laboratory Results - last 48 hr 07/03/22 07/04/22 07/04/22 19:46 09:05 19:53 POC Glucose 193 H 206 H 253 H 07/05/22 08:27 POC Glucose 149 H Medications Medications Current Medications Acetaminophen (Acetaminophen 325 Mg Tablet) 650 mg PO Q8H PRN PRN Reason: Pain, Mild (Pain Scale 1-3) Last Admin: 07/05/22 03:12 Dose: 650 mg Al Hydroxide/Mg Hydroxide (Magnesium Hydrox/Alum Hydrox 30 Ml Oral.Susp) 30 ml PO Q6H PRN PRN Reason: Heartburn/Nausea Albuterol Sulfate (Albuterol Sulfate 90 Mcg 8 Gm Inhaler) 2 puff INHALE Q6H PRN PRN Reason: shortness of breath or wheezing Amlodipine Besylate (Amlodipine Besylate 5 Mg Tablet) 5 mg PO DAILY [facility]; Protocol Last Admin: 07/05/22 08:40 Dose: 5 mg Atorvastatin Calcium (Atorvastatin Calcium 20 Mg Tablet) 20 mg PO DAILY [facility] Last Admin: 07/05/22 08:40 Dose: 20 mg Benztropine Mesylate (Benztropine Mesylate 0.5 Mg Tablet) 0.5 mg PO BID [facility] Last Admin: 07/05/22 08:39 Dose: 0.5 mg Cefuroxime Axetil (Cefuroxime Axetil 500 Mg Tablet) 500 mg PO DAILY [facility] Last Admin: 07/05/22 08:39 Dose: 500 mg Cyclobenzaprine HCl (Cyclobenzaprine Hcl 5 Mg Tablet) 5 mg PO TID PRN PRN Reason: muscle spasm Empagliflozin (Empagliflozin 10 Mg Tablet) 10 mg PO DAILY [facility] Last Admin: 07/05/22 08:40 Dose: 10 mg Gabapentin (Gabapentin 100 Mg Capsule) 100 mg PO BID [facility] Last Admin: 07/05/22 08:40 Dose: 100 mg Lidocaine (Lidocaine 4 % Patch Adh..Patch) 1 patch TRANSDERMA DAILY PRN; Protocol PRN Reason: back pain Last Admin: 07/01/22 16:06 Dose: 1 patch Lisinopril (Lisinopril 10 Mg Tablet) 30 mg PO DAILY [facility]; Protocol Last Admin: 07/05/22 08:39 Dose: 30 mg Loxapine Succinate (Patient Own Med Loxapine 10 Mg) 10 mg PO BID [facility] Last Admin: 07/05/22 08:40 Dose: 10 mg Magnesium Hydroxide (Milk Of Magnesia 30 Ml Oral.Susp) 30 ml PO DAILY PRN PRN Reason: Constipation Last Admin: 07/05/22 03:30 Dose: 30 ml Meclizine HCl (Meclizine Hcl 25 Mg Tablet) 25 mg PO DAILY [facility] Last Admin: 07/05/22 08:40 Dose: 25 mg Memantine (Memantine Hcl 10 Mg Tablet) 10 mg PO BID [facility] Last Admin: 07/05/22 08:39 Dose: 10 mg Mirabegron (Mirabegron 25 Mg Tab.Er.24h) 25 mg PO DAILY [facility] Last Admin: 07/05/22 08:40 Dose: 25 mg Naproxen (Naproxen 500 Mg Tablet) 500 mg PO BID [facility] Last Admin: 07/05/22 08:39 Dose: 500 mg Non-Formulary Medication (Darifenacin) 1 tab PO DAILY [facility] Non-Formulary Medication (Loxapine) 5 mg PO DAILY PRN PRN Reason: agitation, anxiety, pychosis Propranolol HCl (Propranolol Hcl 20 Mg Tablet) 20 mg PO TID [facility]; Protocol Last Admin: 07/05/22 08:39 Dose: 20 mg Senna (Sennosides 8.6 Mg Tablet) 8.6 mg PO BEDTIME [facility] Last Admin: 07/04/22 19:22 Dose: 8.6 mg Sitagliptin Phosphate (Sitagliptin Phosphate 100 Mg Tablet) 100 mg PO DAILY [facility] Last Admin: 07/05/22 08:40 Dose: 100 mg Allergies Allergies Allergy/AdvReac Type Severity Reaction Status Date / Time haloperidol [HALOPERIDOL] Allergy Intermediate SWELLING Verified 05/04/22 12:34 carbamazepine [From Tegretol] Allergy Mild RASH, Verified 05/04/22 12:34 TREMORS lithium [[place]] Allergy Mild RASH, Verified 05/04/22 12:34 CRAWLING OUT OF SKIN olanzapine [From Zyprexa] Allergy Mild RICHARD Verified 05/04/22 12:34 quetiapine [From Seroquel] Allergy Mild SWELLING Verified 05/04/22 12:34 WHOLE BODY, RICHARD topiramate [From TOPAMAX] Allergy Unknown RICHARD, SI Verified 05/04/22 12:34 trazodone [TRAZODONE] Allergy Unknown SYNCOPE Verified 05/04/22 12:34 aripiprazole [From ABILIFY] AdvReac Severe EXTREME SI Verified 05/04/22 12:34 lamotrigine [From Lamictal] AdvReac Mild RICHARD Verified 05/04/22 12:34 modafinil [From Provigil] AdvReac Mild RICHARD Verified 05/04/22 12:34 ALL ANTI DEPRESSENTS Allergy Unknown I GO Uncoded 05/04/22 12:34 MANIC All anti-depressants Allergy Unknown manic, rash Uncoded 05/04/22 12:34 From GEODON Allergy Unknown LETHARGY Uncoded 05/04/22 12:34 From WELLBUTRIN AdvReac Unknown AGITATION, Uncoded 05/04/22 12:34 MAVIS Assessment & Plan Assessment & Plan (1) Bipolar 1 disorder: Status: Acute Code(s): F31.9 - Bipolar disorder, unspecified (2) Post traumatic stress disorder (PTSD): Status: Acute Code(s): F43.10 - Post-traumatic stress disorder, unspecified (3) Mild cognitive impairment: Status: Acute Code(s): G31.84 - Mild cognitive impairment of uncertain or unknown etiology (4) Dissociative identity disorder: Status: Acute Code(s): F44.81 - Dissociative identity disorder Plan Mouna is a 62 y.o. female who carries a dx of Bipolar I DO, Cognitive Impairment, PTSD, Dissociative Identity Disorder, and remote hx of AUD, cocaine use disorder in remission. She presented to [facility] on 06/30/2022 due to SI with plan to run her car into a tree, depression. Precipitating factors include recent deaths in her family, also has been non-adherent with loxapine as she mistakenly thought it was discontinued in OP setting, however it was continued and an additional 5 mg PRN dose was ordered. Pt has a hx of multiple inpatient admissions and has had multiple med trials that have failed due to SEs. Pt has a hx of trauma with reexperiencing, avoidance and hyperarousal symptoms. Has remote hx of cocaine abuse currently in remission. Currently reports mood swings with depressed mood and some sx of hypomania, i.e. poor sleep, increased energy. Combined with recent psychosocial stressors and running out of medications, -reportedly, patient has early-onset dementia which is likely contributory; visual hallucinations are sparse and vague and do not sound like the same quality as Lewy body; will assess for parkinsonian symptoms -patient also has UTI which is likely contributory as well -patient reports that loxapine has been helpful and she wants to get back on home dose. 07/03 pt struggling w/ ptsd flashbacks, anxiety, AH one time dose of clonazepam 1mg and vraylar 3 mg while waiting for Loxapine 07/04/2022: No changes PLAN: Q15 min safety checks, CV Loxapine 10 mg a.m. Loxapine 15 mg q.h.s. Continue other home medications UTI: On Ceftin Labs; repeat LFTs that were mildly elevated on admission Monitor response to medications. Monitor for safety in the milieu. Discharge on stabilization. Patient seen. Chart reviewed. Discussed with team. Obtain collateral contact info?as needed I spent minutes with the patient and/or on the patient floor today, greater than?50% of which was spent counseling/coordinating care. Reason for contiued inpatient stay Substantial Risk for: rapid decompensation
[2022-07-05 18:48] VITALS: BP 133/77; PULSE 102
[2022-07-05] MEDS: Sennosides 8.6 MG TABLET PO (18:49)
[2022-07-05 21:20] LABS: Glucose, Whole Blood 249 mg/dL (60-115)
[2022-07-06] MEDS: Cyclobenzaprine HCl 5 MG TABLET PO ×2 (00:29→13:36)
[2022-07-06] MEDS: Lidocaine 4 % Patch ADH..PATCH 1 PATCH TRANSDERMA (00:30)
[2022-07-06 08:20] LABS: Glucose, Whole Blood 176 mg/dL (60-115)
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
[2022-07-06] MEDS: Memantine HCl 10 MG TABLET PO ×2 (08:33→20:11)
[2022-07-06] MEDS: lisinopriL 10 MG TABLET 30 MG PO (08:33)
[2022-07-06] MEDS: NaPROXEN 500 MG TABLET PO ×2 (08:33→20:11)
[2022-07-06] MEDS: Mirabegron 25 MG TAB.ER.24H PO (08:33)
[2022-07-06] MEDS: Meclizine HCl 25 MG TABLET PO (08:34)
[2022-07-06] MEDS: Gabapentin 100 MG CAPSULE PO ×2 (08:34→20:11)
[2022-07-06] MEDS: amLODIPine Besylate 5 MG TABLET PO (08:34)
[2022-07-06] MEDS: Benztropine Mesylate 0.5 MG TABLET PO ×2 (08:34→20:12)
[2022-07-06] MEDS: Atorvastatin Calcium 20 MG TABLET PO (08:34)
[2022-07-06] MEDS: Empagliflozin 10 MG TABLET PO (08:34)
[2022-07-06] MEDS: SITagliptin Phosphate 100 MG TABLET PO (08:34)
[2022-07-06] MEDS: Propranolol HCL 20 MG TABLET PO ×3 (08:34→20:11)
[2022-07-06 09:00] VITALS: BP 146/94; PULSE 86; RESP 14; TEMP 36.6; O2SAT 95
[2022-07-06] MEDS: Sennosides 8.6 MG TABLET PO (20:11)
[2022-07-06 20:48] VITALS: BP 146/75; PULSE 70
[2022-07-07] MEDS: Cyclobenzaprine HCl 5 MG TABLET PO (02:48)
[2022-07-07 06:00] VITALS: BP 164/84; PULSE 85; RESP 18; TEMP 36.3; O2SAT 96
[2022-07-07] MEDS: lisinopriL 10 MG TABLET 30 MG PO (09:01)
[2022-07-07] MEDS: Propranolol HCL 20 MG TABLET PO ×3 (09:02→20:57)
[2022-07-07] MEDS: Mirabegron 25 MG TAB.ER.24H PO (09:02)
[2022-07-07] MEDS: Meclizine HCl 25 MG TABLET PO (09:02)
[2022-07-07] MEDS: SITagliptin Phosphate 100 MG TABLET PO (09:02)
[2022-07-07] MEDS: NaPROXEN 500 MG TABLET PO ×2 (09:02→20:56)
[2022-07-07] MEDS: Gabapentin 100 MG CAPSULE PO ×2 (09:02→20:57)
[2022-07-07] MEDS: Benztropine Mesylate 0.5 MG TABLET PO ×2 (09:03→20:56)
[2022-07-07] MEDS: Empagliflozin 10 MG TABLET PO (09:03)
[2022-07-07] MEDS: Memantine HCl 10 MG TABLET PO ×2 (09:03→20:56)
[2022-07-07] MEDS: amLODIPine Besylate 5 MG TABLET PO (09:03)
[2022-07-07] MEDS: Atorvastatin Calcium 20 MG TABLET PO (09:03)
[2022-07-07] MEDS: Milk of Magnesia 30 ML ORAL.SUSP PO (10:14)
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
[2022-07-07] MEDS: Simethicone 80 MG TAB.CHEW PO (14:45)
[2022-07-07 18:00] VITALS: PULSE 105; TEMP 36.6; O2SAT 96
[2022-07-07] MEDS: cloNIDine HCL 0.1 MG TABLET PO ×2 (18:45→20:57)
[2022-07-07 20:57] LABS: Glucose, Whole Blood 309 mg/dL (60-115)
[2022-07-07] MEDS: Acetaminophen 325 MG TABLET 650 MG PO (22:16)
[2022-07-08] MEDS: cloNIDine HCL 0.1 MG TABLET PO (00:45)
[2022-07-08 06:00] VITALS: BP 108/69; PULSE 98; RESP 16; TEMP 36.7; O2SAT 99
[2022-07-08 08:48] LABS: Glucose, Whole Blood 165 mg/dL (60-115)
[2022-07-08] MEDS: Meclizine HCl 25 MG TABLET PO (09:03)
[2022-07-08] MEDS: Empagliflozin 10 MG TABLET PO (09:03)
[2022-07-08] MEDS: Atorvastatin Calcium 20 MG TABLET PO (09:04)
[2022-07-08] MEDS: Memantine HCl 10 MG TABLET PO (09:04)
[2022-07-08] MEDS: Mirabegron 25 MG TAB.ER.24H PO (09:04)
[2022-07-08] MEDS: Gabapentin 100 MG CAPSULE PO (09:04)
[2022-07-08] MEDS: SITagliptin Phosphate 100 MG TABLET PO (09:04)
[2022-07-08] MEDS: NaPROXEN 500 MG TABLET PO (09:04)
[2022-07-08] MEDS: Benztropine Mesylate 0.5 MG TABLET PO (09:04)
[2022-07-08] MEDS: Propranolol HCL 20 MG TABLET PO (09:04)
[2022-07-08] MEDS: amLODIPine Besylate 5 MG TABLET PO (09:04)
[2022-07-08] MEDS: lisinopriL 10 MG TABLET 30 MG PO (09:05)
[2022-07-08] MEDS: Magnesium Hydrox/Alum Hydrox 30 ML ORAL.SUSP PO (11:04)
--- NOTE | 2022-07-08 11:53 | P.DS_ITS ---
DS: Providers Provider Date of Service: 07/08/22 Date of admission: 06/30/22 13:35 Date of discharge: 07/08/22 Primary care physician: Kira Craven MD Attending physician on admission: Kyree Garcia Attending physician on discharge: Kyree Garcia DS: Diagnosis Discharge Diagnosis (1) Bipolar 1 disorder: Status: Acute (2) Post traumatic stress disorder (PTSD): Status: Acute (3) Mild cognitive impairment: Status: Acute (4) Dissociative identity disorder: Status: Acute DS: Medications Discharge Medications Home Medications: Home Medications Medication Instructions Recorded Confirmed sennosides 8.6 mg capsule (senna) 8.6 mg PO BEDTIME 11/13/21 06/29/22 amlodipine 5 mg tablet 1 tab PO DAILY 06/29/22 06/29/22 atorvastatin 20 mg tablet 1 tab PO DAILY 06/29/22 06/29/22 benztropine 0.5 mg tablet 1 tab PO BID 06/29/22 06/29/22 clonazepam 0.5 mg tablet 1 tab PO TID PRN anxiety 06/29/22 06/29/22 cyclobenzaprine 5 mg tablet 1 tab PO TID PRN muscle spasm 06/29/22 06/29/22 darifenacin 7.5 mg tablet,extended 1 tab PO DAILY 06/29/22 06/29/22 release 24 hr empagliflozin 10 mg tablet 1 tab PO DAILY 06/29/22 06/29/22 (Jardiance) gabapentin 100 mg capsule 1 cap PO BID 06/29/22 06/29/22 lisinopril 30 mg tablet 1 tab PO DAILY 06/29/22 06/29/22 meclizine 25 mg tablet 1 tab PO DAILY 06/29/22 06/29/22 meloxicam 15 mg tablet 1 tab PO DAILY 06/29/22 06/29/22 memantine 10 mg tablet 1 tab PO BID 06/29/22 06/29/22 metformin 500 mg tablet 1 tab PO BID 06/29/22 06/29/22 mirabegron 25 mg tablet,extended 1 tab PO DAILY 06/29/22 06/29/22 release 24 hr (Myrbetriq) propranolol 20 mg tablet 1 tab PO TID 06/29/22 06/29/22 sitagliptin 100 mg tablet (Januvia) 1 tab PO DAILY 06/29/22 06/29/22 Previous Rx's Medication Instructions Recorded Pull-ups large #240 ea 11/08/20 compress.stocking,knee,reg,lrg #2 ea 01/14/21 PULL UPS LArge #240 ea 03/11/21 blood-glucose meter (FreeStyle #1 ea 04/25/21 Lite Meter kit) Hand held Shower #1 ea 09/05/21 cane #1 ea 09/05/21 shower chair #1 ea 09/05/21 tub seat with back #1 ea 09/05/21 albuterol sulfate 90 mcg/actuation 2 inh inhalation Q6-8H PRN 03/10/22 aerosol inhaler shortness of breath or wheezing #8.5 grams loxapine succinate 10 mg capsule 10 mg PO BID #60 caps 07/01/22 loxapine succinate 5 mg capsule 5 mg PO BID #60 caps 07/01/22 loxapine succinate 5 mg capsule See Rx Instructions .Route 07/02/22 .COMPLEX #150 caps Mental Status Exam Mental Status Exam Narrative: Pt is alert and oriented; behavior is cooperative, calm, friendly; dressed in casual attire with adequate hygiene; mood is described as good and affect is congruent, brighter, calm; eye contact appropriate; Speech is normal rate, volume and prosody and not pressured; no psychomotor retardation present; thought process is goal directed; Thought content is overcoming anxiety, past trauma; on tx; otherwise pertinent to relevant topics; no paranoid or delusionary thoughts; Denies SI; no HI; denies AH and VH; Patients insight and judgment are fair. Data Data Completed and Pending Completed studies during hospitalization [Text1]: 07/01/22 07/01/22 07/02/22 17:00 21:44 07:51 POC Glucose 194 H 255 H 215 H Total Bilirubin Direct Bilirubin AST ALT Alkaline Phosphatase Ammonia Total Protein Albumin 07/03/22 07/03/22 07/03/22 08:46 08:46 19:46 POC Glucose 193 H Total Bilirubin 0.6 Direct Bilirubin 0.2 AST 40 H ALT 49 H Alkaline Phosphatase 152 H Ammonia 21 Total Protein 8.3 H Albumin 4.3 07/04/22 07/04/22 07/05/22 09:05 19:53 08:27 POC Glucose 206 H 253 H 149 H Total Bilirubin Direct Bilirubin AST ALT Alkaline Phosphatase Ammonia Total Protein Albumin 07/05/22 07/06/22 07/07/22 21:16 08:15 20:49 POC Glucose 249 H 176 H 309 H Total Bilirubin Direct Bilirubin AST ALT Alkaline Phosphatase Ammonia Total Protein Albumin 07/08/22 08:45 POC Glucose 165 H Total Bilirubin Direct Bilirubin AST ALT Alkaline Phosphatase Ammonia Total Protein Albumin DS: Summary Hospital Course Hospital Course: HPI: Mouna is a 62 y.o. female who carries a dx of Bipolar I DO, Cognitive Impairment, PTSD, past diagnosis of Dissociative Identity Disorder, and remote hx of AUD, cocaine use disorder in remission. She presented to [facility] on 06/30/2022 due to SI with plan to run her car into a tree (though no longer drives), depression. Precipitating factors include recent deaths in her family, also has been non- adherent with loxapine as she mistakenly thought it was discontinued in OP setting. Pt has a hx of multiple inpatient admissions and has had multiple med trials that have failed due to SEs.? Pt has a hx of trauma with reexperiencing, avoidance and hyperarousal symptoms. Has remote hx of cocaine abuse currently in sustained remission. Currently reports mood swings with depressed mood and some sx of hypomania, i.e. poor sleep, increased energy. Patient diagnosed with UTI in the emergency room and started on antibiotics. Hopsital course: Admission, patient was calm and cooperative but depressed with intermittent SI and AH, citing several psychosocial stressors including recent of loved ones; patient agreed that UTI was also likely contributory. She she reported some vague visual hallucinations but they seemed mostly to be illusions and she reported they mostly occurred during sleep. Patient was anxious and reported having significant PTSD flashbacks. She was given 1 dose of Vryalar to tide her over until loxapine could be obtained and restarted. Once Loxapine was restated, patient responded quickly and soon stabilized. SI fully resolved as did auditory hallucinations. Patient had some residual anxiety and though PTSD symptoms abated, she reported being plagued with self-deprecating thoughts which she termed self loathing. Patient was forthcoming in 1 on 1 sessions and shared that she has endured trauma since a young age and understands that the self loathing thoughts are product of this; she talked about having a very good therapist with whom she has a strong rapport and both life underwriter and patient agreed that this type of issue is likely best treated with continued therapy rather than making medication adjustments. Patient did share she has a history of multiple personalities and she also thinks that this is a product of childhood trauma and was ineffective coping tool to escape as a child. With good insight patient shared she knows that as an adult this is getting in the way of her life and continues to work on this issue in therapy. Patient remained without any SI or AVH, was in a good mood with noticeably brighter affect. She attended and participated in groups and was appropriate with peers and staff. Patient remained in good behavioral and impulse control throughout her time in the unit. Patient did have some trouble sleeping more towards the end of admission but felt it was mostly due to high acuity on the unit, triggering PTSD symptoms. Patient felt ready to return home and wanted discharge. Patient's daughter who is very supportive and involved in patient's care agreed that patient is back to her baseline and ready for discharge. Patient was not in imminent risk for harm to self or others and appropriate for discharge to the community. Her request honored Time spent discussing smoking cessation with patient: 3 to 10 minutes Status at Discharge Functional status at discharge: independent ambulation Overall status at discharge: patient is back to baseline Time Spent with Patient Time attestation: Total time spent providing and/or coordinating discharge services: Time spent: Less than 30 minutes Discharge Plan Discharge Anticipated Discharge Date/Time: 07/08/22 13:00 Patient Disposition: Home, Self-Care Discharge Diagnosis: Bipolar disorder, type I, most recently depressed Referrals: W[facility]TER Visiting RN [Other] - 1 Week (fax- [phone] the visiting RN to restart at D/C ) Meera Pompa [Other] - 07/13/22 2:00 pm (Follow-up discharge appointment with outpatient therapist Appointment is by telephone ) Dr. Spears [Other] - 07/22/22 11:00 am (Follow-up discharge appointment with psychiatrist Appointment in office at [facility]) Kira Craven MD [Primary Care Provider] - 1 Week (OFFICE WILL CALL PT. WITH FOLLOW-UP APPOINTMENT , NO APPT. AVAILABLE AT PRESENT TIME.) Discharge Medications: Continued (DME) Pull-ups large See Rx Instructions .Route .MEDSUPPLY Qty: 240 11RF Rx Instructions: As directed [place] PULL UPS LArge See Rx Instructions .Route .MEDSUPPLY Qty: 240 0RF Rx Instructions: As directed [place] blood-glucose meter [FreeStyle Lite Meter] Kit See Rx Instructions .ROUTE .MEDSUPPLY Qty: 1 0RF Rx Instructions: As directed check the BS QD [place] Hand held Shower See Rx Instructions .Route .MEDSUPPLY Qty: 1 0RF Rx Instructions: As directed [place] shower chair See Rx Instructions .Route .MEDSUPPLY Qty: 1 0RF Rx Instructions: As directed [place] tub seat with back See Rx Instructions .Route .MEDSUPPLY Qty: 1 0RF Rx Instructions: As directed [place] cane See Rx Instructions .Route .MEDSUPPLY Qty: 1 0RF Rx Instructions: As directed metformin 500 mg tablet 1 tab PO BID atorvastatin 20 mg tablet 1 tab PO DAILY benztropine 0.5 mg tablet 1 tab PO BID meloxicam 15 mg tablet 1 tab PO DAILY clonazepam 0.5 mg tablet 1 tab PO TID PRN (Reason: anxiety) amlodipine 5 mg tablet 1 tab PO DAILY meclizine 25 mg tablet 1 tab PO DAILY lisinopril 30 mg tablet 1 tab PO DAILY gabapentin 100 mg capsule 1 cap PO BID propranolol 20 mg tablet 1 tab PO TID cyclobenzaprine 5 mg tablet 1 tab PO TID PRN (Reason: muscle spasm) memantine 10 mg tablet 1 tab PO BID darifenacin 7.5 mg tablet extended release 24 hr 1 tab PO DAILY Januvia 100 mg tablet 1 tab PO DAILY Myrbetriq 25 mg tablet extended release 24 hr 1 tab PO DAILY Jardiance 10 mg tablet 1 tab PO DAILY (DME) compress.stocking,knee,reg,lrg Misc See Rx Instructions .ROUTE .MEDSUPPLY Qty: 2 0RF Rx Instructions: As directed 20-30 mm HG senna 8.6 mg capsule 8.6 mg PO BEDTIME albuterol sulfate 90 mcg/actuation HFA aerosol inhaler 2 inh inhalation Q6-8H PRN (Reason: shortness of breath or wheezing) Qty: 8.5 0RF Changed loxapine succinate 5 mg capsule See Rx Instructions .ROUTE .COMPLEX Qty: 150 0RF Rx Instructions: take 2 caps in the AM and 3 caps at bedtime Discontinued loxapine succinate 10 mg capsule 1 cap PO BID Discharge Orders: Discharge Order (Routine); Ordered 07/08/22 Ordered By: Kyree Garcia Activity on Discharge: As tolerated Stand Alone Forms: Patient Portal Discharge page, Community Support Care Plan Goals: Maintain mood and safe behaviors Take medications as prescribed Continue to pursue sobriety Practice coping skills Continue with outpatient providers and reach out to them as needed Health Concerns: Mood stability and behaviors Diabetes Hypertension Plan of Treatment: Follow up with your PCP, psychiatric provider and other outpatient providers regarding above concerns Take medications as prescribed Assessment: Risk assessment at time of discharge:? Patient was interviewed prior to discharge and found to be fully oriented and without any SI or HI. Patient has insight and demonstrates good judgment in terms of wanting to pursue treatment. Patient is not in imminent risk of harm to self or others and has a safety plan that includes presenting to the closest ER or calling 911 if feeling unsafe.? Patient has been observed closely by nursing and unit staff throughout admission; patient has not engaged in any behaviors that suggest dangerousness to self or others and has demonstrated appropriate behaviors and impulse control Discharge Date/Time: 07/08/22 13:46
== END 2022-07-08 13:46 | disposition home or self-care (01) | DRG 885 ==
LOC: HO.ED 06-30 02:13 → HO.PM5 06-30 14:38
PROVIDERS: Admitting Provider Psychiatry & Neurology Psychiatry; Emergency Provider Internal Medicine; PCP Internal Medicine; Visit Provider Psychiatry & Neurology Psychiatry
DX: F31.30 Bipolar disorder, current episode depressed, mild or moderate severity, unspecified (principal); N39.0 Urinary tract infection, site not specified; R45.851 Suicidal ideations; E11.40 Type 2 diabetes mellitus with diabetic neuropathy, unspecified; J45.909 Unspecified asthma, uncomplicated; F43.10 Post-traumatic stress disorder, unspecified; F44.81 Dissociative identity disorder; G31.84 Mild cognitive impairment of uncertain or unknown etiology; Z20.822 Contact with and (suspected) exposure to COVID-19; Z23 Encounter for immunization; Z79.84 Long term (current) use of oral hypoglycemic drugs; Z79.899 Other long term (current) drug therapy
CPT/HCPCS: 36415; 80053; 80076; 80143; 80179; 80307; 81001; 82077; 82140; 82947; 83735; 85025; 87635; 90686; 90792; 93005; 99285

== ENCOUNTER 2022-07-28 11:52 | Outpatient (REF) | payer OTHER, SELFPAY ==
[2022-07-28 12:41] LABS: Appearance Urine Clear; Color Urine Yellow; Glucose Urine UA >=1000 mg/dL (Negative); Leukocyte Esterase Urine Negative (Negative); Nitrite Urine Negative (Negative); PH 5.5 (5.0-9.0); Specific Gravity - Urine >= 1.030 (1.005-1.025); UMIC TRIGGER UACC YES; Urine Blood Negative (Negative); Urine Ketones Negative (Negative); Urine Protein Negative (Neg-Trace)
[2022-07-28 12:44] LABS: INTERNATIONAL NORM RATIO 1.1 (0.9-1.1); Prothrombin Time 12.2 SEC (10.0-13.1)
[2022-07-28 12:48] LABS: Platelet Count 214 X10*3/uL (160-400)
[2022-07-28 13:24] LABS: Bacteria Urine None Seen (None Seen); Hyaline Casts Urine 0-2 /LPF (0-2); RBC Urine 0-2 /HPF (0-2); WBC Urine 0-5 /HPF (0-5)
== END 2022-07-28 11:53 | disposition home or self-care (01) ==
LOC: HO.LAB 11:52
PROVIDERS: Nurse Practitioner Family; PCP Internal Medicine; Visit Provider Internal Medicine
DX: T14.8XXA Other injury of unspecified body region, initial encounter (principal)
CPT/HCPCS: 36415; 81001; 85049; 85610

== ENCOUNTER 2023-03-05 09:01 | Outpatient (REF) | payer OTHER, SELFPAY ==
[2023-03-05 09:21] LABS: MANUAL DIFF FLAG NO
[2023-03-05 09:39] LABS: Basophils Absolute Auto 0.1 X10*3/uL (0.0-0.2); Basophils Percent Auto 1.2 % (0-2); Eosinophils Absolute Auto 0.3 X10*3/uL (0.0-0.4); Eosinophils Percent Auto 3.3 % (0-4); Hematocrit 42.5 % (37.0-47.0); Hemoglobin 13.8 g/dl (12.0-16.0); Imm Gran Abs Auto 0.03 X10*3/uL (0.00-0.03); Imm Gran Pct Auto 0.4 % (0.0-0.4); Lymphocytes Absolute Auto 2.9 X10*3/uL (1.2-4.9); Lymphocytes Percent Auto 38.7 % (20-40); Mean Corpuscular HGB Conc 32.5 g/dl (31.0-35.0); Mean Corpuscular Hemoglobin 28.5 pg (27.0-33.0); Mean Corpuscular Volume 87.6 fL (80.0-98.0); Mean Platelet Volume 10.4 fL (9.4-12.3); Monocytes Absolute Auto 0.6 X10*3/uL (0.1-1.2); Monocytes Percent Auto 7.7 % (2-11); Neutrophils Absolute Auto 3.6 x10*3/uL (2.0-8.3); Neutrophils Percent Auto 48.7 % (45-73); Platelet Count 169 X10*3/uL (160-400); Red Blood Count 4.85 X10*6/uL (4.20-5.50); Red Cell Distribution Width 13.4 % (11.0-16.0); White Blood Count 7.5 X10*3/uL (4.8-10.8)
[2023-03-05 10:21] LABS: Alanine Aminotransferase 24 U/L (0-31); Albumin Level 4.1 g/dL (3.5-5.0); Alkaline Phosphatase 111 U/L (39-117); Anion Gap 13 (12-20); Aspartate Amino Transferase 23 U/L (5-31); Bilirubin Total 0.9 mg/dL (0.0-1.0); Blood Urea Nitrogen 20 mg/dL (9-16); Calcium 10.3 mg/dL (8.4-10.2); Carbon Dioxide 27 mmol/L (22-29); Chloride 102 mmol/L (96-108); Cholesterol 134 mg/dL; Estimated Glomerular Filt Rate 53; Glucose Random 210 mg/dL (60-115); HDL Cholesterol 45 mg/dL; LDL Cholesterol Calculated 58 mg/dl; Potassium 4.7 mmol/L (3.3-5.1); Sodium 137 mmol/L (135-145); Total Protein 8.3 g/dL (6.5-8.0); Triglycerides 156 mg/dL
[2023-03-05 10:47] LABS: Free T4 (Free Thyroxine) 1.09 ng/dL (0.71-1.85); Vitamin D 25-OH Total 19.4 ng/mL (>30)
[2023-03-05 10:48] LABS: Folate 13.2 ng/mL (> or = 4.0); Vitamin B12 557 pg/mL (200-900)
== END 2023-03-05 09:02 | disposition home or self-care (01) ==
LOC: HO.LAB 09:01
PROVIDERS: PCP Internal Medicine; Visit Provider Internal Medicine
DX: E11.65 Type 2 diabetes mellitus with hyperglycemia (principal); E78.00 Pure hypercholesterolemia, unspecified; E55.9 Vitamin D deficiency, unspecified
CPT/HCPCS: 36415; 80053; 80061; 82306; 82607; 82746; 84439; 84443; 85025

== ENCOUNTER 2023-03-09 | Outpatient (REF) | payer OTHER, SELFPAY ==
[2023-03-09 19:20] LABS: Appearance Urine Clear; Color Urine Yellow; Glucose Urine UA Negative (Negative); Leukocyte Esterase Urine Trace (Negative); Nitrite Urine Negative (Negative); Specific Gravity - Urine <= 1.005 (1.005-1.025); UMIC TRIGGER UACC YES; Urine Blood Negative (Negative); Urine Ketones Negative (Negative); Urine Protein Negative (Neg-Trace)
[2023-03-09 19:30] LABS: Creatinine Urine 37.67 mg/dL
[2023-03-09 19:32] LABS: Creatinine Urine 38.84 mg/dL; Microalbum/Creatinine Ratio Ur 126.1 ug/mg cr
[2023-03-09 20:45] LABS: Bacteria Urine None Seen (None Seen); Hyaline Casts Urine 0-2 /LPF (0-2); RBC Urine 0-2 /HPF (0-2); WBC Urine 0-5 /HPF (0-5)
== END 2023-03-09 00:01 | disposition home or self-care (01) ==
LOC: HO.LNP
PROVIDERS: Visit Provider Internal Medicine
DX: R10.2 Pelvic and perineal pain (principal)
CPT/HCPCS: 81001; 82043

== ENCOUNTER 2023-03-09 16:17 | Inpatient (IN) | payer OTHER, SELFPAY ==
[2023-03-09 16:22] VITALS: BP 156/77; PULSE 85; RESP 20; TEMP 36.8; O2SAT 93; BMI 36.6
[2023-03-09 17:15] LABS: MANUAL DIFF FLAG NO
[2023-03-09 17:26] LABS: Basophils Absolute Auto 0.1 X10*3/uL (0.0-0.2); Basophils Percent Auto 1.3 % (0-2); Eosinophils Absolute Auto 0.3 X10*3/uL (0.0-0.4); Eosinophils Percent Auto 3.6 % (0-4); Hematocrit 41.9 % (37.0-47.0); Hemoglobin 13.8 g/dl (12.0-16.0); Imm Gran Abs Auto 0.02 X10*3/uL (0.00-0.03); Imm Gran Pct Auto 0.2 % (0.0-0.4); Lymphocytes Absolute Auto 3.9 X10*3/uL (1.2-4.9); Lymphocytes Percent Auto 45.5 % (20-40); Mean Corpuscular HGB Conc 32.9 g/dl (31.0-35.0); Mean Platelet Volume 10.2 fL (9.4-12.3); Monocytes Absolute Auto 0.7 X10*3/uL (0.1-1.2); Monocytes Percent Auto 8.4 % (2-11); Neutrophils Absolute Auto 3.5 x10*3/uL (2.0-8.3); Platelet Count 175 X10*3/uL (160-400); Red Blood Count 4.93 X10*6/uL (4.20-5.50); Red Cell Distribution Width 13.2 % (11.0-16.0); White Blood Count 8.6 X10*3/uL (4.8-10.8)
[2023-03-09 17:29] LABS: COVID-19 Test Negative (Negative); IDNOW Serial# BCCEAD1C
[2023-03-09 17:41] LABS: Amphetamine Screen Urine Not Detected (Not Detect); Barbiturates, Urine Not Detected (Not Detect); Benzodiazepines Screen Urine Not Detected (Not Detect); Cannabinoid Screen Urine Not Detected (Not Detect); Cocaine Screen Urine Not Detected (Not Detect); Fentanyl, urine Not Detected (Not Detect); Opiate Screen Urine Not Detected (Not Detect); Phencyclidine Screen Urine Not Detected (Not Detect)
[2023-03-09 17:44] LABS: Alanine Aminotransferase 30 U/L (0-31); Albumin Level 4.2 g/dL (3.5-5.0); Alkaline Phosphatase 129 U/L (39-117); Anion Gap 17 (12-20); Aspartate Amino Transferase 30 U/L (5-31); Bilirubin Total 0.9 mg/dL (0.0-1.0); Blood Urea Nitrogen 14 mg/dL (9-16); Carbon Dioxide 22 mmol/L (22-29); Chloride 102 mmol/L (96-108); Creatinine Clr Calc Pharmacy 69.4; Estimated Glomerular Filt Rate > 60; Glucose Random 154 mg/dL (60-115); Potassium 4.5 mmol/L (3.3-5.1); Sodium 136 mmol/L (135-145); Total Protein 8.5 g/dL (6.5-8.0)
[2023-03-09 17:50] LABS: Appearance Urine Clear; Color Urine Yellow; Glucose Urine UA Negative (Negative); Leukocyte Esterase Urine Trace (Negative); Nitrite Urine Negative (Negative); Specific Gravity - Urine <= 1.005 (1.005-1.025); UMIC TRIGGER UACC YES; Urine Blood Negative (Negative); Urine Ketones Negative (Negative); Urine Protein Negative (Neg-Trace)
[2023-03-09 17:51] LABS: Acetaminophen LAB < 17 mcg/mL (<30)
[2023-03-09 17:56] LABS: Bacteria Urine None Seen (None Seen); Hyaline Casts Urine 0-2 /LPF (0-2); RBC Urine 0-2 /HPF (0-2); Squamous Epithelial Cell Urine 0-2 /HPF (0-2); WBC Urine 0-5 /HPF (0-5)
--- NOTE | 2023-03-09 18:02 | ED_ITS ---
HPI - Psych General Chief Complaint: Psychiatric Symptoms Stated Complaint: SI Time Seen by Provider: 03/09/23 16:38 Source: patient Mode of arrival: ambulatory Limitations: no limitations History of Present Illness HPI Narrative: Patient is a 62-year-old female who presents to the emergency department for evaluation of suicidal ideations without a specific plan. She has recently experienced loss of family members which exacerbated her symptoms. She reports having ?multiple personalities that will walk in front of cars?. She denies any EtOH or recreational drug usage. At this time she is not endorsing any physical complaints. Related Data Home Medications Medication Instructions Recorded Confirmed amlodipine 5 mg tablet 5 mg PO DAILY 03/09/23 03/09/23 atorvastatin 20 mg tablet 20 mg PO DAILY 03/09/23 03/09/23 clonazepam 0.5 mg tablet 0.5 mg PO TID PRN anxiety 03/09/23 03/09/23 cyclobenzaprine 5 mg tablet 5 mg PO TID PRN muscle spasm 03/09/23 03/09/23 gabapentin 100 mg capsule 100 mg PO BID 03/09/23 03/10/23 lisinopril 30 mg tablet 30 mg PO DAILY 03/09/23 03/09/23 meloxicam 15 mg tablet 15 mg PO DAILY 03/09/23 03/09/23 memantine 10 mg tablet 10 mg PO BID 03/09/23 03/09/23 mirabegron 25 mg tablet,extended 25 mg PO DAILY 03/09/23 03/09/23 release 24 hr (Myrbetriq) pioglitazone 15 mg tablet 15 mg PO DAILY 03/09/23 03/09/23 propranolol 20 mg tablet 20 mg PO TID 03/09/23 03/09/23 sitagliptin phosphate 100 mg 100 mg PO DAILY 03/09/23 03/10/23 tablet (Januvia) darifenacin 7.5 mg tablet,extended 7.5 mg PO DAILY 03/10/23 03/10/23 release 24 hr Previous Rx's Medication Instructions Recorded albuterol sulfate 90 mcg/actuation 2 inh inhalation Q6-8H PRN 03/10/22 aerosol inhaler shortness of breath or wheezing #8.5 grams Allergies Allergy/AdvReac Type Severity Reaction Status Date / Time haloperidol [HALOPERIDOL] Allergy Intermediate SWELLING Verified 03/09/23 16:25 carbamazepine [From Tegretol] Allergy Mild RASH, Verified 03/09/23 16:25 TREMORS lithium [[place]] Allergy Mild RASH, Verified 03/09/23 16:25 CRAWLING OUT OF SKIN olanzapine [From Zyprexa] Allergy Mild RICHARD Verified 03/09/23 16:25 quetiapine [From Seroquel] Allergy Mild SWELLING Verified 03/09/23 16:25 WHOLE BODY, RICHARD topiramate [From TOPAMAX] Allergy Unknown RICHARD, SI Verified 03/09/23 16:25 trazodone [TRAZODONE] Allergy Unknown SYNCOPE Verified 03/09/23 16:25 aripiprazole [From ABILIFY] AdvReac Severe EXTREME SI Verified 03/09/23 16:25 metformin AdvReac Intermediate Diarrhea Verified 03/09/23 16:25 lamotrigine [From Lamictal] AdvReac Mild RICHARD Verified 03/09/23 16:25 modafinil [From Provigil] AdvReac Mild RICHARD Verified 03/09/23 16:25 ALL ANTI DEPRESSENTS Allergy Unknown I GO Uncoded 03/09/23 16:25 MANIC All anti-depressants Allergy Unknown manic, rash Uncoded 03/09/23 16:25 From GEODON Allergy Unknown LETHARGY Uncoded 03/09/23 16:25 From WELLBUTRIN AdvReac Unknown AGITATION, Uncoded 03/09/23 16:25 MAVIS Review of Systems Review of Systems: Yes all other systems are reviewed and are negative PMFSH Past Medical History Attestation statement: The following information was validated with the patient. Source: old records reviewed Medical History Asthma Back pain Breast cancer screening by mammogram Bruising Cellulitis of right anterior lower leg Chronic hepatitis C Cognitive impairment Dementia Diabetic nephropathy Diarrhea Dissociative identity disorder Fatty liver GERD (gastroesophageal reflux disease) Hallucinations Hypercholesterolemia Hypertension Leg swelling Richard Mild cognitive impairment Obesity (BMI 30-39.9) Peripheral vascular disease Polysubstance abuse Type 2 diabetes mellitus with hyperglycemia Uterine prolapse Vaginal pain Surgical History History of appendectomy History of cholecystectomy History of ectopic History of tonsillectomy Family History Family History Father Diabetes Hypertension Mother Hypertension Diabetes CVD (cardiovascular disease) CAD (coronary artery disease) Maternal Aunt Myocardial infarction Maternal Uncle Myocardial infarction Social History Social History Household Members: Friend(s) Housing: House Do you presently have visiting nurse or other home services: Yes Unable to assess alcohol history related to: Unknown Alcohol intake: never Patient Tobacco Use Status: Former Tobacco user Tobacco use type: Cigarette e-Cigarette/Vaping Use: Never Used Second Hand Smoke Exposure: No Advance Directives: No Advance Directives Information Provided: No service: No Sexual orientation: Straight/Heterosexual Cognitive needs: No Hearing needs: No Vision needs: Yes Physical Exam Vital Signs: Vital Signs: Last Vital Signs Temp 97.4 F 03/10/23 00:16 Pulse 73 03/10/23 00:16 Resp 16 03/10/23 00:16 BP 168/95 H 03/10/23 00:16 Pulse Ox 97 03/10/23 00:16 O2 Del Method Room Air 03/10/23 00:16 BMI result Body Mass Index 36.6 Appearance: Alert.?Oriented to person, place and time. No acute distress.?Normal affect. Eyes: Pupils equal, round and reactive to light.? ENT: Pharynx normal.?? Neck: Normal inspection.? Neck supple.?? CVS: Heart sounds normal. Normal heart rate and rhythm.? Pulses normal.?? Respiratory: No respiratory distress.? Lung sounds clear to auscultation bi laterally?? Abdomen: Soft and non-tender. Skin: Skin warm and dry.? Normal skin color.? Extremities: No lower extremity edema.? Neuro: Moves all extremities spontaneously. Sensation intact bilaterally. CN II- XII intact. No focal neuro deficits. Ambulates with normal steady gait. Course Reevaluation(s) Reevaluation #1: Serum labs are overall unremarkable, drug abuse screen is negative. Urinalysis without compelling evidence of UTI. Patient will be placed in physician observation so that care team evaluation can occur to determine whether inpatient psychiatric services are required at this time. She remains calm and cooperative. Time: 21:48 Medications Administered Generic Name Dose Route Start Last Admin Trade Name Freq PRN Reason Stop Dose Admin Clonazepam 0.5 mg 03/09/23 23:47 03/10/23 00:16 Clonazepam 0.5 Mg Tablet PO 0.5 mg TID PRN Administration anxiety Cyclobenzaprine HCl 5 mg 03/09/23 23:47 03/10/23 00:16 Cyclobenzaprine Hcl 5 Mg Tablet PO 5 mg TID PRN Administration muscle spasm Memantine 10 mg 03/09/23 23:45 03/10/23 00:16 Memantine Hcl 10 Mg Tablet PO 10 mg BID TARYN Administration Propranolol HCl 20 mg 03/09/23 23:45 03/10/23 00:16 Propranolol Hcl 20 Mg Tablet PO 20 mg TID TARYN Administration Protocol Discontinued Medications Generic Name Dose Route Start Last Admin Trade Name Freq PRN Reason Stop Dose Admin Ibuprofen 800 mg 03/09/23 23:45 03/10/23 00:11 Ibuprofen 800 Mg Tablet PO 03/09/23 23:46 800 mg ONCE ONE Administration Medical Decision Making Medical Decision Making [facility] Narrative: Patient is a 62-year-old female past medical history of bipolar disorder, type 2 diabetes, polysubstance abuse, asthma, chronic hepatitis-C, dementia, diabetic nephropathy, fatty liver, GERD, hyperlipidemia, hypertension, PVD presenting to the emergency department for evaluation of suicidal ideations without any specific plan. Differential Diagnosis Differential Diagnoses: The differential diagnosis associated with the presentation includes (Suicidal ideation, polysubstance abuse, bipolar disorder, metabolic encephalopathy) Admission/Observation Consideration of admission/observation: Escalation of care including admission/observation considered Placed in physician observation so that evaluation from care team will be obtained Lab Data [facility] Lab Attestation statement: I reviewed the patient's lab results. 03/09/23 17:09 03/09/23 17:09 Labs: Lab Results 03/09/23 03/09/23 03/09/23 Range/Units 17:00 17:00 17:09 WBC 8.6 (4.8-10.8) X10*3/uL RBC 4.93 (4.20-5.50) X10*6/uL Hgb 13.8 (12.0-16.0) g/dl Hct 41.9 (37.0-47.0) % MCV 85.0 (80.0-98.0) fL MCH 28.0 (27.0-33.0) pg MCHC 32.9 (31.0-35.0) g/dl RDW 13.2 (11.0-16.0) % Plt Count 175 (160-400) X10*3/uL MPV 10.2 (9.4-12.3) fL Immature Gran % (Auto) 0.2 (0.0-0.4) % Neut % (Auto) 41.0 L (45-73) % Lymph % (Auto) 45.5 H (20-40) % [place] % (Auto) 8.4 (2-11) % Eos % (Auto) 3.6 (0-4) % Baso % (Auto) 1.3 (0-2) % Lymph # (Auto) 3.9 (1.2-4.9) X10*3/uL [place] # (Auto) 0.7 (0.1-1.2) X10*3/uL Eos # (Auto) 0.3 (0.0-0.4) X10*3/uL Baso # (Auto) 0.1 (0.0-0.2) X10*3/uL Abs Immat Gran (auto) 0.02 (0.00-0.03) X10*3/uL Absolute Neuts (auto) 3.5 (2.0-8.3) x10*3/uL Absolute Nucleated RBC 0.000 (0.0-0.012) X10*3/uL Nucleated RBC % (auto) 0.0 (0.0-0.2) /100WBC Sodium (135-145) mmol/L Potassium (3.3-5.1) mmol/L Chloride (96-108) mmol/L Carbon Dioxide (22-29) mmol/L Anion Gap (12-20) BUN (9-16) mg/dL Creatinine (0.5-1.4) mg/dL Estim Creat Clear Calc Estimated GFR Random Glucose (60-115) mg/dL Calcium (8.4-10.2) mg/dL Total Bilirubin (0.0-1.0) mg/dL AST (5-31) U/L ALT (0-31) U/L Alkaline Phosphatase (39-117) U/L Total Protein (6.5-8.0) g/dL Albumin (3.5-5.0) g/dL Urine Color Yellow Urine Appearance Clear Urine pH 6.0 (5.0-9.0) Ur Specific [place] <= 1.005 (1.005-1.025) Urine Protein Negative (Neg-Trace) mg/dL Urine Glucose (UA) Negative (Negative) mg/dL Urine Ketones Negative (Negative) mg/dL Urine Blood Negative (Negative) Urine Nitrite Negative (Negative) Ur Leukocyte Esterase Trace H (Negative) Urine RBC 0-2 (0-2) /HPF Urine WBC 0-5 (0-5) /HPF Ur Squamous Epith Cells 0-2 (0-2) /HPF Urine Bacteria None Seen (None Seen) Hyaline Casts 0-2 (0-2) /LPF Urine Opiates Screen Not Detected (Not Detect) Urine Fentanyl Screen Not Detected (Not Detect) Acetaminophen (<30) mcg/mL Ur Barbiturates Screen Not Detected (Not Detect) Ur Phencyclidine Scrn Not Detected (Not Detect) Ur Amphetamines Screen Not Detected (Not Detect) U Benzodiazepines Scrn Not Detected (Not Detect) Urine Cocaine Screen Not Detected (Not Detect) U Marijuana (THC) Screen Not Detected (Not Detect) COVID-19 (ALDAIR) (Negative) COVID-19 Clin Com 03/09/23 03/09/23 03/09/23 Range/Units 17:09 17:09 17:09 WBC (4.8-10.8) X10*3/uL RBC (4.20-5.50) X10*6/uL Hgb (12.0-16.0) g/dl Hct (37.0-47.0) % MCV (80.0-98.0) fL MCH (27.0-33.0) pg MCHC (31.0-35.0) g/dl RDW (11.0-16.0) % Plt Count (160-400) X10*3/uL MPV (9.4-12.3) fL Immature Gran % (Auto) (0.0-0.4) % Neut % (Auto) (45-73) % Lymph % (Auto) (20-40) % [place] % (Auto) (2-11) % Eos % (Auto) (0-4) % Baso % (Auto) (0-2) % Lymph # (Auto) (1.2-4.9) X10*3/uL [place] # (Auto) (0.1-1.2) X10*3/uL Eos # (Auto) (0.0-0.4) X10*3/uL Baso # (Auto) (0.0-0.2) X10*3/uL Abs Immat Gran (auto) (0.00-0.03) X10*3/uL Absolute Neuts (auto) (2.0-8.3) x10*3/uL Absolute Nucleated RBC (0.0-0.012) X10*3/uL Nucleated RBC % (auto) (0.0-0.2) /100WBC Sodium 136 (135-145) mmol/L Potassium 4.5 (3.3-5.1) mmol/L Chloride 102 (96-108) mmol/L Carbon Dioxide 22 (22-29) mmol/L Anion Gap 17 (12-20) BUN 14 (9-16) mg/dL Creatinine 0.88 (0.5-1.4) mg/dL Estim Creat Clear Calc 69.4 Estimated GFR > 60 Random Glucose 154 H (60-115) mg/dL Calcium 10.0 (8.4-10.2) mg/dL Total Bilirubin 0.9 (0.0-1.0) mg/dL AST 30 (5-31) U/L ALT 30 (0-31) U/L Alkaline Phosphatase 129 H (39-117) U/L Total Protein 8.5 H (6.5-8.0) g/dL Albumin 4.2 (3.5-5.0) g/dL Urine Color Urine Appearance Urine pH (5.0-9.0) Ur Specific [place] (1.005-1.025) Urine Protein (Neg-Trace) mg/dL Urine Glucose (UA) (Negative) mg/dL Urine Ketones (Negative) mg/dL Urine Blood (Negative) Urine Nitrite (Negative) Ur Leukocyte Esterase (Negative) Urine RBC (0-2) /HPF Urine WBC (0-5) /HPF Ur Squamous Epith Cells (0-2) /HPF Urine Bacteria (None Seen) Hyaline Casts (0-2) /LPF Urine Opiates Screen (Not Detect) Urine Fentanyl Screen (Not Detect) Acetaminophen < 17 (<30) mcg/mL Ur Barbiturates Screen (Not Detect) Ur Phencyclidine Scrn (Not Detect) Ur Amphetamines Screen (Not Detect) U Benzodiazepines Scrn (Not Detect) Urine Cocaine Screen (Not Detect) U Marijuana (THC) Screen (Not Detect) COVID-19 (ALDAIR) Negative (Negative) COVID-19 Clin Com See Note Discharge Plan Discharge Clinical Impression: Suicidal ideation Patient Disposition: Still a Patient Prescriptions: No Action pioglitazone 15 mg tablet 15 mg PO DAILY atorvastatin 20 mg tablet 20 mg PO DAILY meloxicam 15 mg tablet 15 mg PO DAILY clonazepam 0.5 mg tablet 0.5 mg PO TID PRN (Reason: anxiety) amlodipine 5 mg tablet 5 mg PO DAILY lisinopril 30 mg tablet 30 mg PO DAILY propranolol 20 mg tablet 20 mg PO TID cyclobenzaprine 5 mg tablet 5 mg PO TID PRN (Reason: muscle spasm) memantine 10 mg tablet 10 mg PO BID Myrbetriq 25 mg tablet extended release 24 hr 25 mg PO DAILY gabapentin 100 mg capsule 100 mg PO BID Januvia 100 mg tablet 100 mg PO DAILY darifenacin 7.5 mg tablet extended release 24 hr 7.5 mg PO DAILY albuterol sulfate 90 mcg/actuation HFA aerosol inhaler 2 inh inhalation Q6-8H PRN (Reason: shortness of breath or wheezing) Qty: 8.5 0RF Interventions: [place]-Suicide Risk Severity Scale Last Done: 03/09/23 23:02
[2023-03-09 19:22] VITALS: BP 139/81; PULSE 72; RESP 16; TEMP 36.8; O2SAT 91
--- NOTE | 2023-03-10 | ECG_ITS ---
Test Reason : CHECK PROLONG QT Blood Pressure : / mmHG Vent. Rate : 068 BPM Atrial Rate : 068 BPM P-R Int : 208 ms QRS Dur : 108 ms QT Int : 444 ms P-R-T Axes : 047 -44 034 degrees QTc Int : 472 ms Normal sinus rhythm Left axis deviation Minimal voltage criteria for LVH, may be normal variant ( Balwinder product ) Abnormal ECG When compared with ECG of 29-JUN-2022 21:51, No significant change was found Referred By: Torres Hammer Electronically Signed By:CRISTIANA KEMP
[2023-03-10] MEDS: Ibuprofen 800 MG TABLET PO (00:11)
[2023-03-10 00:16] VITALS: BP 168/95; PULSE 73; RESP 16; TEMP 36.3; O2SAT 97
[2023-03-10] MEDS: Memantine HCl 10 MG TABLET PO ×3 (00:16→21:18)
[2023-03-10] MEDS: Propranolol HCL 20 MG TABLET PO ×4 (00:16→21:19)
[2023-03-10] MEDS: Cyclobenzaprine HCl 5 MG TABLET PO (00:16)
[2023-03-10] MEDS: clonazePAM 0.5 MG TABLET PO ×4 (00:16→23:37)
[2023-03-10 05:48] VITALS: BP 161/66; PULSE 74; RESP 16; TEMP 36.6; O2SAT 95
--- NOTE | 2023-03-10 06:36 | PC.NURSE ---
Patient slept through the night, no distress observed/reported, behavior non concerning, medication compliant, care consult ordered/pending evaluation, labs completed/resulted, care consult ordered/pending evaluation, will continue to monitor.
[2023-03-10] MEDS: Loperamide HCl 2 MG CAPSULE PO (10:02)
[2023-03-10] MEDS: NaPROXEN 500 MG TABLET PO ×2 (10:03→21:18)
[2023-03-10] MEDS: Atorvastatin Calcium 20 MG TABLET PO (10:05)
[2023-03-10] MEDS: amLODIPine Besylate 5 MG TABLET PO (10:06)
[2023-03-10] MEDS: lisinopriL 10 MG TABLET 30 MG PO (10:07)
[2023-03-10] MEDS: Mirabegron 25 MG TAB.ER.24H PO (10:23)
[2023-03-10] MEDS: Ibuprofen 400 MG TABLET PO (11:49)
[2023-03-10] MEDS: Gabapentin 300 MG CAPSULE PO (11:49)
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
[2023-03-10 15:32] VITALS: BP 119/71; PULSE 73; RESP 18; TEMP 37.4; O2SAT 95
[2023-03-10 18:39] VITALS: BP 134/84; PULSE 85; RESP 16; TEMP 36.1; O2SAT 98; BMI 36.9
--- NOTE | 2023-03-10 22:26 | PC.ADMIT ---
Pt is a 62 years old female admitted on CV for SI/ no plan. Pt is known to this unit from prior admission. Pt is alert and oriented, VSS, Covid negative, tox screen negative. Pt appears her stated age, calm cooperative, quiet. Pt reports that she has recently experienced loss of family members. Pt appears depressed, endorses depression of 6/10, denies anxiety, HI/VH. Speech is low tone but regular rhythm. insight, judgment and impulsive is fair. Pt reports racing thoughts. She states her family is involved in her care; her daughter is her healthcare proxy. Admission orders obtained.
[2023-03-11 07:00] VITALS: BMI 37.1
[2023-03-11 08:00] VITALS: BP 141/93; PULSE 62; RESP 18; TEMP 35.9; O2SAT 94
[2023-03-11] MEDS: clonazePAM 0.5 MG TABLET PO ×3 (08:30→22:11)
[2023-03-11] MEDS: Cyclobenzaprine HCl 5 MG TABLET PO ×2 (08:30→22:09)
[2023-03-11] MEDS: Atorvastatin Calcium 20 MG TABLET PO (08:31)
[2023-03-11] MEDS: lisinopriL 10 MG TABLET 30 MG PO (08:31)
[2023-03-11] MEDS: Mirabegron 25 MG TAB.ER.24H PO (08:31)
[2023-03-11] MEDS: NaPROXEN 500 MG TABLET PO ×2 (08:32→19:48)
[2023-03-11] MEDS: amLODIPine Besylate 5 MG TABLET PO (08:32)
[2023-03-11] MEDS: Propranolol HCL 20 MG TABLET PO ×3 (08:32→19:52)
[2023-03-11] MEDS: Memantine HCl 10 MG TABLET PO ×2 (08:32→19:52)
[2023-03-11] MEDS: Albuterol Sulfate 90 MCG 8 GM INHALER 2 PUFF INHALE (08:33)
[2023-03-11 09:47] LABS: Alanine Aminotransferase 31 U/L (0-31); Albumin Level 4.3 g/dL (3.5-5.0); Alkaline Phosphatase 128 U/L (39-117); Anion Gap 15 (12-20); Aspartate Amino Transferase 35 U/L (5-31); Bilirubin Total 0.7 mg/dL (0.0-1.0); Blood Urea Nitrogen 16 mg/dL (9-16); Calcium 10.9 mg/dL (8.4-10.2); Carbon Dioxide 25 mmol/L (22-29); Chloride 104 mmol/L (96-108); Cholesterol 139 mg/dL; Creatinine Clr Calc Pharmacy 65.2; Estimated Glomerular Filt Rate > 60; Glucose Fasting 187 mg/dL (60-99); HDL Cholesterol 48 mg/dL; LDL Cholesterol Calculated 62 mg/dl; Potassium 5.1 mmol/L (3.3-5.1); Sodium 139 mmol/L (135-145); Thyroid Stimulating Hormone 0.81 uIU/mL (0.32-4.0); Total Protein 8.9 g/dL (6.5-8.0); Triglycerides 147 mg/dL
[2023-03-11 09:49] LABS: Vitamin B12 645 pg/mL (200-900)
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
[2023-03-11 10:44] LABS: Estimated Average Glucose 212 mg/dL
[2023-03-11] MEDS: Gabapentin 300 MG CAPSULE PO ×2 (12:38→19:48)
[2023-03-11 14:24] VITALS: BP 138/79; PULSE 79
[2023-03-11 18:00] VITALS: BP 128/68; PULSE 71; RESP 16; TEMP 36.4; O2SAT 97
[2023-03-12 06:00] VITALS: BP 169/94; PULSE 88; RESP 18; TEMP 36.3; O2SAT 95
[2023-03-12] MEDS: Mirabegron 25 MG TAB.ER.24H PO (08:09)
[2023-03-12] MEDS: lisinopriL 10 MG TABLET 30 MG PO (08:09)
[2023-03-12] MEDS: amLODIPine Besylate 5 MG TABLET PO (08:10)
[2023-03-12] MEDS: Gabapentin 300 MG CAPSULE PO ×2 (08:10→22:14)
[2023-03-12] MEDS: Propranolol HCL 20 MG TABLET PO ×3 (08:11→22:14)
[2023-03-12] MEDS: Atorvastatin Calcium 20 MG TABLET PO (08:12)
[2023-03-12] MEDS: Memantine HCl 10 MG TABLET PO ×2 (08:12→22:14)
[2023-03-12] MEDS: clonazePAM 0.5 MG TABLET PO ×3 (08:19→22:23)
--- NOTE | 2023-03-12 14:25 | HO.PSYCHPN ---
Subjective Subjective Date of Service: 03/12/23 Reason For Visit: SI Subjective Notes: Conditional Voluntary Healthcare Proxy: No Guardianship: No Medical Problems Affecting Mental Status: No Interim History: Meloxicam ordered. Naprosyn discontinued. Loxapine ordered. Pt in milieu, engaging with team and peers. Sister visited. She is participating in milieu and group program. She denies current issues or concerns. Medication Compliance: Yes Side effects from medications: No Attending Groups: Yes Review of Systems Acute medical concerns: No Medical Review of Systems: unchanged Mental Status Exam Mental Status Exam Patient Appearance: Appropriate Patient Orientation: Person and Place Level of Consciousness: Alert Patient Behavior: Appropriate, Talkative and Cooperative Mood Description: Apprehensive Affect Description: Constricted Patient Cognition Impaired: Yes Ability to Follow Directions: Fair Speech Pattern: Spontaneous Speech and Long Pauses Memory Description: Remote Impaired and Recent Impaired Hallucinations: None Delusions: Not Present Thought Process: Distracted Thought Content: positive for Circumstantial and positive for Suicidal Ideation (denies) Depressive Symptoms: Increased Anxiety and Difficulty Concentrating Judgement: Fair Diagnostics Vital Signs (24Hr): Vital Signs - 24 hr 03/11/23 18:00 03/12/23 06:00 Temperature 97.6 F 97.4 F Pulse Rate 71 88 Respiratory Rate 16 18 Blood Pressure 128/68 169/94 H Pulse Oximetry 97 95 Oxygen Delivery Method Room Air Room Air BMI result Body Mass Index 37.1 Labs 03/09/23 17:09 03/11/23 08:18 Labs: Laboratory Results - last 48 hr 03/11/23 03/11/23 03/11/23 08:18 08:18 08:18 Sodium 139 Potassium 5.1 Chloride 104 Carbon Dioxide 25 Anion Gap 15 BUN 16 Creatinine 0.94 Estim Creat Clear Calc 65.2 Estimated GFR > 60 Fasting Glucose 187 H Estimat Average Glucose 212 Hemoglobin A1c % 9.0 Calcium 10.9 H D Total Bilirubin 0.7 AST 35 H ALT 31 Alkaline Phosphatase 128 H Total Protein 8.9 H Albumin 4.3 Triglycerides 147 Cholesterol 139 LDL Cholesterol, Calc 62 HDL Cholesterol 48 Vitamin B12 645 TSH 0.81 Medications Medications Current Medications Acetaminophen (Acetaminophen 325 Mg Tablet) 650 mg PO Q6H PRN PRN Reason: Headache/Pain Mild Scale (1-3) Al Hydroxide/Mg Hydroxide (Magnesium Hydrox/Alum Hydrox 30 Ml Oral.Susp) 30 ml PO Q6H PRN PRN Reason: Heartburn/Nausea Albuterol Sulfate (Albuterol Sulfate 90 Mcg 8 Gm Inhaler) 2 puff INHALE Q6H PRN PRN Reason: shortness of breath or wheezing Last Admin: 03/11/23 08:33 Dose: 2 puff Amlodipine Besylate (Amlodipine Besylate 5 Mg Tablet) 5 mg PO DAILY [facility]; Protocol Last Admin: 03/12/23 08:10 Dose: 5 mg Atorvastatin Calcium (Atorvastatin Calcium 20 Mg Tablet) 20 mg PO DAILY [facility] Last Admin: 03/12/23 08:12 Dose: 20 mg Clonazepam (Clonazepam 0.5 Mg Tablet) 0.5 mg PO TID PRN PRN Reason: anxiety Last Admin: 03/12/23 08:19 Dose: 0.5 mg Cyclobenzaprine HCl (Cyclobenzaprine Hcl 5 Mg Tablet) 5 mg PO TID PRN PRN Reason: muscle spasm Last Admin: 03/11/23 22:09 Dose: 5 mg Gabapentin (Gabapentin 300 Mg Capsule) 300 mg PO BID [facility] Last Admin: 03/12/23 08:10 Dose: 300 mg Hydroxyzine HCl (Hydroxyzine Hcl 25 Mg Tablet) 25 mg PO Q6H PRN PRN Reason: Anxiety Lisinopril (Lisinopril 10 Mg Tablet) 30 mg PO DAILY [facility]; Protocol Last Admin: 03/12/23 08:09 Dose: 30 mg Magnesium Hydroxide (Milk Of Magnesia 30 Ml Oral.Susp) 30 ml PO DAILY PRN PRN Reason: Constipation Memantine (Memantine Hcl 10 Mg Tablet) 10 mg PO BID [facility] Last Admin: 03/12/23 08:12 Dose: 10 mg Mirabegron (Mirabegron 25 Mg Tab.Er.24h) 25 mg PO DAILY [facility] Last Admin: 03/12/23 08:09 Dose: 25 mg Pt Own Medication ( (Meloxicam 15 Mg)) 15 mg PO DAILY [facility] Last Admin: 03/12/23 08:13 Dose: 15 mg Pharmacy Consult (Consult Rx Perform Med Rec) 1 each MISCELLANE ONCE PRN PRN Reason: Consult order Pioglitazone HCl (Pioglitazone Hcl 15 Mg Tablet) 15 mg PO DAILY [facility] Last Admin: 03/12/23 08:13 Dose: 15 mg Propranolol HCl (Propranolol Hcl 20 Mg Tablet) 20 mg PO TID [facility]; Protocol Last Admin: 03/12/23 08:11 Dose: 20 mg Allergies Allergies Allergy/AdvReac Type Severity Reaction Status Date / Time haloperidol [HALOPERIDOL] Allergy Intermediate SWELLING Verified 03/09/23 16:25 carbamazepine [From Tegretol] Allergy Mild RASH, Verified 03/09/23 16:25 TREMORS lithium [Joyce] Allergy Mild RASH, Verified 03/09/23 16:25 CRAWLING OUT OF SKIN olanzapine [From Zyprexa] Allergy Mild RICHARD Verified 03/09/23 16:25 quetiapine [From Seroquel] Allergy Mild SWELLING Verified 03/09/23 16:25 WHOLE BODY, RICHARD topiramate [From TOPAMAX] Allergy Unknown RICHARD, SI Verified 03/09/23 16:25 trazodone [TRAZODONE] Allergy Unknown SYNCOPE Verified 03/09/23 16:25 aripiprazole [From ABILIFY] AdvReac Severe EXTREME SI Verified 03/09/23 16:25 metformin AdvReac Intermediate Diarrhea Verified 03/09/23 16:25 lamotrigine [From Lamictal] AdvReac Mild RICHARD Verified 03/09/23 16:25 modafinil [From Provigil] AdvReac Mild IRCHARD Verified 03/09/23 16:25 ALL ANTI DEPRESSENTS Allergy Unknown I GO Uncoded 03/09/23 16:25 MANIC All anti-depressants Allergy Unknown manic, rash Uncoded 03/09/23 16:25 From GEODON Allergy Unknown LETHARGY Uncoded 03/09/23 16:25 From WELLBUTRIN AdvReac Unknown AGITATION, Uncoded 03/09/23 16:25 MAVIS Assessment & Plan Assessment & Plan (1) Bipolar 1 disorder: Status: Acute Code(s): F31.9 - Bipolar disorder, unspecified (2) Post traumatic stress disorder (PTSD): Status: Acute Code(s): F43.10 - Post-traumatic stress disorder, unspecified (3) Type 2 diabetes mellitus with hyperglycemia: Qualifiers: Diabetes mellitus intermediate frame tender insulin use: without intermediate frame tender use Qualified Code(s): E11.65 - Type 2 diabetes mellitus with hyperglycemia Status: Acute Code(s): E11.65 - Type 2 diabetes mellitus with hyperglycemia (4) Diabetic neuropathy: Status: Acute Code(s): E11.40 - Type 2 diabetes mellitus with diabetic neuropathy, unspecified Plan Patient is a 62-year-old female with history of bipolar, PTSD, multiple psych admits, who presents for worsening depression, SI and auditory hallucinations and the face of recent psychosocial stressors including her mother's this past November and sister's just 3 weeks ago. Patient reports that she takes her medications regularly without fail and has a visiting nurse. -patient reports continued stability on current medication regimen and that psychotic symptoms other result of feeling overwhelmed with sad anxious thoughts Plan: CV Q 15 minute checks Patient takes loxapine, not sure the dose; will have family member bring it in which is to be restarted -consider increasing dose Patient takes meloxicam; does not want naproxen; will have family member bring it in which can replace naproxen Med rec consult placed to assess scripts for sitagliptin and darifenacin (pt currently on Myrbetriq; not sure if needs both) Otherwise continue home medication Hospital Course 03/12: Meloxicam and base dose of Loxapine ordered. Continue current regime and plan of care. Informed Consent: further education needed Reason for continued inpatient stay Substantial Risk for: rapid decompensation Time Spent With Patient Time: Total time managing care of this patient today ____ minutes.
[2023-03-12 14:27] VITALS: BP 146/70; PULSE 79
[2023-03-12 18:00] VITALS: BP 147/82; PULSE 97; RESP 18; TEMP 35.9; O2SAT 96
[2023-03-12] MEDS: Cyclobenzaprine HCl 5 MG TABLET PO (22:22)
[2023-03-13 08:14] VITALS: BP 152/79; PULSE 76; RESP 18; TEMP 36.1; O2SAT 95
[2023-03-13] MEDS: Gabapentin 300 MG CAPSULE PO ×2 (08:21→22:01)
[2023-03-13] MEDS: lisinopriL 10 MG TABLET 30 MG PO (08:21)
[2023-03-13] MEDS: Atorvastatin Calcium 20 MG TABLET PO (08:21)
[2023-03-13] MEDS: amLODIPine Besylate 5 MG TABLET PO (08:21)
[2023-03-13] MEDS: Propranolol HCL 20 MG TABLET PO ×3 (08:21→22:02)
[2023-03-13] MEDS: Mirabegron 25 MG TAB.ER.24H PO (08:21)
[2023-03-13] MEDS: Memantine HCl 10 MG TABLET PO ×2 (08:22→22:01)
[2023-03-13] MEDS: Cyclobenzaprine HCl 5 MG TABLET PO ×2 (08:27→22:09)
[2023-03-13] MEDS: clonazePAM 0.5 MG TABLET PO ×3 (08:29→22:10)
[2023-03-13] MEDS: Benztropine Mesylate 0.5 MG TABLET PO ×2 (11:16→22:02)
--- NOTE | 2023-03-13 11:34 | HO.PSYCHPN ---
Subjective Subjective Date of Service: 03/13/23 Reason For Visit: SI Interim History: Patient seen and discussed. Reports improvement since being admitted. Denies side effects. Discussed multiple losses over the past few months. She says she was adherent to her medications. She did take cogentin at home and requested that and it was restarted. She also said she checks her BS once a day in AM because of DM. Pt in milieu, engaging with team and peers. Denies SI/HI/AVH. Review of Systems Review of Systems Yes all other systems are reviewed and are negative Mental Status Exam Mental Status Exam Narrative: Pt is alert and oriented; behavior is cooperative, friendly but anxious; dressed in hospital attire with adequate hygiene; mood is described as depressed and affect congruent, anxious; eye contact appropriate; Speech is normal rate, volume and prosody and not pressured; no psychomotor agitation/retardation present; thought process is goal directed; Thought content is on her sisters , psychosocial stresses, feeling sad and on tx; otherwise pertinent to relevant topics; no paranoid or delusionary thoughts; intermittent SI; no HI; some intermittent AH; no VH; Patients insight and judgment are impaired. Patient Appearance: Appropriate Patient Orientation: Person and Place Level of Consciousness: Alert Patient Behavior: Appropriate, Talkative and Cooperative Mood Description: Apprehensive Affect Description: Constricted Patient Cognition Impaired: Yes Ability to Follow Directions: Fair Speech Pattern: Spontaneous Speech and Long Pauses Memory Description: Remote Impaired and Recent Impaired Diagnostics Vital Signs (24Hr): Vital Signs - 24 hr 03/12/23 14:27 03/12/23 18:00 03/13/23 08:14 Temperature 96.7 F L 97.0 F Pulse Rate 79 97 76 Respiratory Rate 18 18 Blood Pressure 146/70 H 147/82 H 152/79 H Pulse Oximetry 96 95 Oxygen Delivery Method Room Air Room Air BMI result Body Mass Index 37.1 Labs 03/09/23 17:09 03/11/23 08:18 Medications Medications Current Medications Acetaminophen (Acetaminophen 325 Mg Tablet) 650 mg PO Q6H PRN PRN Reason: Headache/Pain Mild Scale (1-3) Al Hydroxide/Mg Hydroxide (Magnesium Hydrox/Alum Hydrox 30 Ml Oral.Susp) 30 ml PO Q6H PRN PRN Reason: Heartburn/Nausea Albuterol Sulfate (Albuterol Sulfate 90 Mcg 8 Gm Inhaler) 2 puff INHALE Q6H PRN PRN Reason: shortness of breath or wheezing Last Admin: 03/11/23 08:33 Dose: 2 puff Amlodipine Besylate (Amlodipine Besylate 5 Mg Tablet) 5 mg PO DAILY [facility]; Protocol Last Admin: 03/13/23 08:21 Dose: 5 mg Atorvastatin Calcium (Atorvastatin Calcium 20 Mg Tablet) 20 mg PO DAILY [facility] Last Admin: 03/13/23 08:21 Dose: 20 mg Benztropine Mesylate (Benztropine Mesylate 0.5 Mg Tablet) 0.5 mg PO BID [facility] Last Admin: 03/13/23 11:16 Dose: 0.5 mg Clonazepam (Clonazepam 0.5 Mg Tablet) 0.5 mg PO TID PRN PRN Reason: anxiety Last Admin: 03/13/23 08:29 Dose: 0.5 mg Cyclobenzaprine HCl (Cyclobenzaprine Hcl 5 Mg Tablet) 5 mg PO TID PRN PRN Reason: muscle spasm Last Admin: 03/13/23 08:27 Dose: 5 mg Gabapentin (Gabapentin 300 Mg Capsule) 300 mg PO BID [facility] Last Admin: 03/13/23 08:21 Dose: 300 mg Hydroxyzine HCl (Hydroxyzine Hcl 25 Mg Tablet) 25 mg PO Q6H PRN PRN Reason: Anxiety Lisinopril (Lisinopril 10 Mg Tablet) 30 mg PO DAILY [facility]; Protocol Last Admin: 03/13/23 08:21 Dose: 30 mg Magnesium Hydroxide (Milk Of Magnesia 30 Ml Oral.Susp) 30 ml PO DAILY PRN PRN Reason: Constipation Memantine (Memantine Hcl 10 Mg Tablet) 10 mg PO BID [facility] Last Admin: 03/13/23 08:22 Dose: 10 mg Mirabegron (Mirabegron 25 Mg Tab.Er.24h) 25 mg PO DAILY [facility] Last Admin: 03/13/23 08:21 Dose: 25 mg Pt Own Medication ( (Meloxicam 15 Mg)) 15 mg PO DAILY [facility] Last Admin: 03/13/23 08:21 Dose: 15 mg Pt Own Medication ( (Loxapine 10 Mg)) 10 mg PO BID [facility] Last Admin: 03/13/23 08:21 Dose: 10 mg Patient Own Medication (Loxapine 5 Mg) 5 mg PO BEDTIME [facility] Last Admin: 03/12/23 20:21 Dose: 5 mg Pharmacy Consult (Consult Rx Perform Med Rec) 1 each MISCELLANE ONCE PRN PRN Reason: Consult order Pioglitazone HCl (Pioglitazone Hcl 15 Mg Tablet) 15 mg PO DAILY [facility] Last Admin: 03/13/23 08:21 Dose: 15 mg Propranolol HCl (Propranolol Hcl 20 Mg Tablet) 20 mg PO TID [facility]; Protocol Last Admin: 03/13/23 08:21 Dose: 20 mg Allergies Allergies Allergy/AdvReac Type Severity Reaction Status Date / Time haloperidol [HALOPERIDOL] Allergy Intermediate SWELLING Verified 03/09/23 16:25 carbamazepine [From Tegretol] Allergy Mild RASH, Verified 03/09/23 16:25 TREMORS lithium [[place]] Allergy Mild RASH, Verified 03/09/23 16:25 CRAWLING OUT OF SKIN olanzapine [From Zyprexa] Allergy Mild RICHARD Verified 03/09/23 16:25 quetiapine [From Seroquel] Allergy Mild SWELLING Verified 03/09/23 16:25 WHOLE BODY, RICHARD topiramate [From TOPAMAX] Allergy Unknown RICHARD, SI Verified 03/09/23 16:25 trazodone [TRAZODONE] Allergy Unknown SYNCOPE Verified 03/09/23 16:25 aripiprazole [From ABILIFY] AdvReac Severe EXTREME SI Verified 03/09/23 16:25 metformin AdvReac Intermediate Diarrhea Verified 03/09/23 16:25 lamotrigine [From Lamictal] AdvReac Mild RICHARD Verified 03/09/23 16:25 modafinil [From Provigil] AdvReac Mild RICHARD Verified 03/09/23 16:25 ALL ANTI DEPRESSENTS Allergy Unknown I GO Uncoded 03/09/23 16:25 MANIC All anti-depressants Allergy Unknown manic, rash Uncoded 03/09/23 16:25 From GEODON Allergy Unknown LETHARGY Uncoded 03/09/23 16:25 From WELLBUTRIN AdvReac Unknown AGITATION, Uncoded 03/09/23 16:25 MAVIS Assessment & Plan Assessment & Plan (1) Bipolar 1 disorder: Status: Acute Code(s): F31.9 - Bipolar disorder, unspecified (2) Post traumatic stress disorder (PTSD): Status: Acute Code(s): F43.10 - Post-traumatic stress disorder, unspecified (3) Type 2 diabetes mellitus with hyperglycemia: Qualifiers: Diabetes mellitus terminal operations supervisor insulin use: without penitentiary use Qualified Code(s): E11.65 - Type 2 diabetes mellitus with hyperglycemia Status: Acute Code(s): E11.65 - Type 2 diabetes mellitus with hyperglycemia (4) Diabetic neuropathy: Status: Acute Code(s): E11.40 - Type 2 diabetes mellitus with diabetic neuropathy, unspecified Plan Patient is a 62-year-old female with history of bipolar, PTSD, multiple psych admits, who presents for worsening depression, SI and auditory hallucinations and the face of recent psychosocial stressors including her mother's this past November and sister's just 3 weeks ago. Patient reports that she takes her medications regularly without fail and has a visiting nurse. -patient reports continued stability on current medication regimen and that psychotic symptoms other result of feeling overwhelmed with sad anxious thoughts Plan: CV Q 15 minute checks Patient takes loxapine, not sure the dose; will have family member bring it in which is to be restarted -consider increasing dose Patient takes meloxicam; does not want naproxen; will have family member bring it in which can replace naproxen Med rec consult placed to assess scripts for sitagliptin and darifenacin (pt currently on Myrbetriq; not sure if needs both) Otherwise continue home medication Hospital Course 03/12: Meloxicam and base dose of Loxapine ordered. Continue current regime and plan of care. 03/13: Restarted Cogentin. Ordered Glucose POC in AM daily. Continue treatment. Reason for continued inpatient stay Substantial Risk for: harm to self and rapid decompensation Time Spent With Patient Time: Total time managing care of this patient today ____ minutes.
[2023-03-13 14:20] VITALS: BP 151/84; PULSE 105
[2023-03-13 21:50] VITALS: BP 136/81; PULSE 76; TEMP 36.8; O2SAT 94
[2023-03-14 07:57] LABS: Glucose, Whole Blood 264 mg/dL (60-115)
[2023-03-14 08:03] VITALS: BP 161/85; PULSE 69; RESP 18; TEMP 36.4; O2SAT 93
[2023-03-14] MEDS: lisinopriL 10 MG TABLET 30 MG PO (08:08)
[2023-03-14] MEDS: Propranolol HCL 20 MG TABLET PO ×3 (08:10→22:08)
[2023-03-14] MEDS: clonazePAM 0.5 MG TABLET PO ×3 (08:10→22:06)
[2023-03-14] MEDS: Benztropine Mesylate 0.5 MG TABLET PO ×2 (08:10→22:08)
[2023-03-14] MEDS: Gabapentin 300 MG CAPSULE PO ×2 (08:10→22:07)
[2023-03-14] MEDS: Memantine HCl 10 MG TABLET PO ×2 (08:11→22:07)
[2023-03-14] MEDS: Mirabegron 25 MG TAB.ER.24H PO (08:11)
[2023-03-14] MEDS: amLODIPine Besylate 5 MG TABLET PO (08:11)
[2023-03-14] MEDS: Atorvastatin Calcium 20 MG TABLET PO (08:11)
[2023-03-14] MEDS: Cyclobenzaprine HCl 5 MG TABLET PO ×2 (08:15→22:06)
--- NOTE | 2023-03-14 19:39 | P.PNPSI_ITS ---
Subjective Subjective Date of Service: 03/14/23 Reason For Visit: SI Interim History: Patient seen and discussed. Patient continues to report improvement since being admitted. Denies side effects of medications. She says she is having a good day. Pt in milieu, engaging with team and peers. Denies SI/HI/AVH. Review of Systems Review of Systems Yes all other systems are reviewed and are negative Mental Status Exam Mental Status Exam Narrative: Pt is alert and oriented; behavior is cooperative, friendly but anxious; dressed in hospital attire with adequate hygiene; mood is described as depressed and affect congruent, anxious; eye contact appropriate; Speech is normal rate, volume and prosody and not pressured; no psychomotor agitation/retardation present; thought process is goal directed; Thought content is on her sisters , psychosocial stresses, feeling sad and on tx; otherwise pertinent to relevant topics; no paranoid or delusionary thoughts; intermittent SI; no HI; some intermittent AH; no VH; Patients insight and judgment are impaired. Patient Appearance: Appropriate Patient Orientation: Person and Place Level of Consciousness: Alert Patient Behavior: Appropriate, Talkative and Cooperative Mood Description: Apprehensive Affect Description: Constricted Patient Cognition Impaired: Yes Ability to Follow Directions: Fair Speech Pattern: Spontaneous Speech and Long Pauses Memory Description: Remote Impaired and Recent Impaired Diagnostics Vital Signs (24Hr): Vital Signs - 24 hr 03/13/23 21:50 03/14/23 08:03 Temperature 98.2 F 97.5 F Pulse Rate 76 69 Respiratory Rate 18 Blood Pressure 136/81 161/85 H Pulse Oximetry 94 93 Oxygen Delivery Method Room Air Room Air BMI result Body Mass Index 37.1 Labs 03/09/23 17:09 03/11/23 08:18 Labs: Laboratory Results - last 48 hr 03/14/23 07:52 POC Glucose 264 H Medications Medications Current Medications Acetaminophen (Acetaminophen 325 Mg Tablet) 650 mg PO Q6H PRN PRN Reason: Headache/Pain Mild Scale (1-3) Al Hydroxide/Mg Hydroxide (Magnesium Hydrox/Alum Hydrox 30 Ml Oral.Susp) 30 ml PO Q6H PRN PRN Reason: Heartburn/Nausea Albuterol Sulfate (Albuterol Sulfate 90 Mcg 8 Gm Inhaler) 2 puff INHALE Q6H PRN PRN Reason: shortness of breath or wheezing Last Admin: 03/11/23 08:33 Dose: 2 puff Amlodipine Besylate (Amlodipine Besylate 5 Mg Tablet) 5 mg PO DAILY [facility]; Protocol Last Admin: 03/14/23 08:11 Dose: 5 mg Atorvastatin Calcium (Atorvastatin Calcium 20 Mg Tablet) 20 mg PO DAILY [facility] Last Admin: 03/14/23 08:11 Dose: 20 mg Benztropine Mesylate (Benztropine Mesylate 0.5 Mg Tablet) 0.5 mg PO BID [facility] Last Admin: 03/14/23 08:10 Dose: 0.5 mg Clonazepam (Clonazepam 0.5 Mg Tablet) 0.5 mg PO TID PRN PRN Reason: anxiety Last Admin: 03/14/23 14:41 Dose: 0.5 mg Cyclobenzaprine HCl (Cyclobenzaprine Hcl 5 Mg Tablet) 5 mg PO TID PRN PRN Reason: muscle spasm Last Admin: 03/14/23 08:15 Dose: 5 mg Gabapentin (Gabapentin 300 Mg Capsule) 300 mg PO BID [facility] Last Admin: 03/14/23 08:10 Dose: 300 mg Hydroxyzine HCl (Hydroxyzine Hcl 25 Mg Tablet) 25 mg PO Q6H PRN PRN Reason: Anxiety Lisinopril (Lisinopril 10 Mg Tablet) 30 mg PO DAILY [facility]; Protocol Last Admin: 03/14/23 08:08 Dose: 30 mg Magnesium Hydroxide (Milk Of Magnesia 30 Ml Oral.Susp) 30 ml PO DAILY PRN PRN Reason: Constipation Memantine (Memantine Hcl 10 Mg Tablet) 10 mg PO BID [facility] Last Admin: 03/14/23 08:11 Dose: 10 mg Mirabegron (Mirabegron 25 Mg Tab.Er.24h) 25 mg PO DAILY [facility] Last Admin: 03/14/23 08:11 Dose: 25 mg Pt Own Medication ( (Meloxicam 15 Mg)) 15 mg PO DAILY [facility] Last Admin: 03/14/23 08:11 Dose: 15 mg Pt Own Medication ( (Loxapine 10 Mg)) 10 mg PO BID [facility] Last Admin: 03/14/23 08:12 Dose: 10 mg Patient Own Medication (Loxapine 5 Mg) 5 mg PO BEDTIME [facility] Last Admin: 03/13/23 22:04 Dose: 5 mg Pharmacy Consult (Consult Rx Perform Med Rec) 1 each MISCELLANE ONCE PRN PRN Reason: Consult order Pioglitazone HCl (Pioglitazone Hcl 15 Mg Tablet) 15 mg PO DAILY [facility] Last Admin: 03/14/23 08:11 Dose: 15 mg Propranolol HCl (Propranolol Hcl 20 Mg Tablet) 20 mg PO TID [facility]; Protocol Last Admin: 03/14/23 14:09 Dose: 20 mg Allergies Allergies Allergy/AdvReac Type Severity Reaction Status Date / Time haloperidol [HALOPERIDOL] Allergy Intermediate SWELLING Verified 03/09/23 16:25 carbamazepine [From Tegretol] Allergy Mild RASH, Verified 03/09/23 16:25 TREMORS lithium [[place]] Allergy Mild RASH, Verified 03/09/23 16:25 CRAWLING OUT OF SKIN olanzapine [From Zyprexa] Allergy Mild RICHARD Verified 03/09/23 16:25 quetiapine [From Seroquel] Allergy Mild SWELLING Verified 03/09/23 16:25 WHOLE BODY, RICHARD topiramate [From TOPAMAX] Allergy Unknown RICHARD, SI Verified 03/09/23 16:25 trazodone [TRAZODONE] Allergy Unknown SYNCOPE Verified 03/09/23 16:25 aripiprazole [From ABILIFY] AdvReac Severe EXTREME SI Verified 03/09/23 16:25 metformin AdvReac Intermediate Diarrhea Verified 03/09/23 16:25 lamotrigine [From Lamictal] AdvReac Mild RICHARD Verified 03/09/23 16:25 modafinil [From Provigil] AdvReac Mild RICHARD Verified 03/09/23 16:25 ALL ANTI DEPRESSENTS Allergy Unknown I GO Uncoded 03/09/23 16:25 MANIC All anti-depressants Allergy Unknown manic, rash Uncoded 03/09/23 16:25 From GEODON Allergy Unknown LETHARGY Uncoded 03/09/23 16:25 From WELLBUTRIN AdvReac Unknown AGITATION, Uncoded 03/09/23 16:25 MAVIS Assessment & Plan Assessment & Plan (1) Bipolar 1 disorder: Status: Acute Code(s): F31.9 - Bipolar disorder, unspecified (2) Post traumatic stress disorder (PTSD): Status: Acute Code(s): F43.10 - Post-traumatic stress disorder, unspecified (3) Type 2 diabetes mellitus with hyperglycemia: Qualifiers: Diabetes mellitus four h agent insulin use: without four h agent use Qualified Code(s): E11.65 - Type 2 diabetes mellitus with hyperglycemia Status: Acute Code(s): E11.65 - Type 2 diabetes mellitus with hyperglycemia (4) Diabetic neuropathy: Status: Acute Code(s): E11.40 - Type 2 diabetes mellitus with diabetic neuropathy, unspecified Plan Patient is a 62-year-old female with history of bipolar, PTSD, multiple psych admits, who presents for worsening depression, SI and auditory hallucinations and the face of recent psychosocial stressors including her mother's this past November and sister's just 3 weeks ago. Patient reports that she takes her medications regularly without fail and has a visiting nurse. -patient reports continued stability on current medication regimen and that psychotic symptoms other result of feeling overwhelmed with sad anxious thoughts Plan: CV Q 15 minute checks Patient takes loxapine, not sure the dose; will have family member bring it in which is to be restarted -consider increasing dose Patient takes meloxicam; does not want naproxen; will have family member bring it in which can replace naproxen Med rec consult placed to assess scripts for sitagliptin and darifenacin (pt currently on Myrbetriq; not sure if needs both) Otherwise continue home medication Hospital Course 03/12: Meloxicam and base dose of Loxapine ordered. Continue current regime and plan of care. 03/13: Restarted Cogentin. Ordered Glucose POC in AM daily. Continue treatment. 03/14: Continue current treatment plan. Reason for continued inpatient stay Substantial Risk for: harm to self, inability to function and rapid decompensation Time Spent With Patient Time: Total time managing care of this patient today ____ minutes.
[2023-03-14 22:00] VITALS: BP 147/85; PULSE 61; TEMP 36.5
[2023-03-15 08:02] LABS: Glucose, Whole Blood 219 mg/dL (60-115)
[2023-03-15] MEDS: lisinopriL 10 MG TABLET 30 MG PO (08:33)
[2023-03-15] MEDS: Memantine HCl 10 MG TABLET PO ×2 (08:34→21:13)
[2023-03-15] MEDS: Mirabegron 25 MG TAB.ER.24H PO (08:34)
[2023-03-15] MEDS: Atorvastatin Calcium 20 MG TABLET PO (08:34)
[2023-03-15] MEDS: amLODIPine Besylate 5 MG TABLET PO (08:34)
[2023-03-15] MEDS: Propranolol HCL 20 MG TABLET PO ×3 (08:34→21:13)
[2023-03-15] MEDS: Gabapentin 300 MG CAPSULE PO ×2 (08:34→21:13)
[2023-03-15] MEDS: Benztropine Mesylate 0.5 MG TABLET PO ×2 (08:36→21:13)
[2023-03-15 08:45] VITALS: BP 112/62; PULSE 59; RESP 18; O2SAT 95
[2023-03-15] MEDS: Albuterol Sulfate 90 MCG 8 GM INHALER 2 PUFF INHALE (08:50)
[2023-03-15] MEDS: Cyclobenzaprine HCl 5 MG TABLET PO ×2 (08:50→21:13)
--- NOTE | 2023-03-15 09:13 | P.PNPSI_ITS ---
Subjective Subjective Date of Service: 03/15/23 Reason For Visit: SI Interim History: Met with patient; discussed with team; reviewed notes Patient reports she is feeling much better. She says depression is gone, AH is gone, no SI and is feeling back to her regular self. She says she is eating and sleeping well and no nightmares. Patient says she feels ready for discharge home. Patient very thankful for help received on the unit. She notes that she is no longer taking Lipitor that this was discontinued some time ago. Mental Status Exam Mental Status Exam Narrative: Pt is alert and oriented; behavior is cooperative, friendly, calm; dressed in casual attire with adequate hygiene; mood is described as good and affect congruent, calm, bright; eye contact appropriate; Speech is normal rate, volume and prosody and not pressured; no psychomotor agitation/retardation present; thought process is goal directed; Thought content is on feeling better, making peace with losing loved ones; otherwise pertinent to relevant topics; no paranoid or delusionary thoughts; no SI; no HI; no AVH; Patients insight and judgment are fair Diagnostics Vital Signs (24Hr): Vital Signs - 24 hr 03/14/23 22:00 Temperature 97.7 F Pulse Rate 61 Blood Pressure 147/85 H BMI result Body Mass Index 37.1 Labs 03/09/23 17:09 03/11/23 08:18 Labs: Laboratory Results - last 48 hr 03/14/23 03/15/23 07:52 07:58 POC Glucose 264 H 219 H Medications Medications Current Medications Acetaminophen (Acetaminophen 325 Mg Tablet) 650 mg PO Q6H PRN PRN Reason: Headache/Pain Mild Scale (1-3) Al Hydroxide/Mg Hydroxide (Magnesium Hydrox/Alum Hydrox 30 Ml Oral.Susp) 30 ml PO Q6H PRN PRN Reason: Heartburn/Nausea Albuterol Sulfate (Albuterol Sulfate 90 Mcg 8 Gm Inhaler) 2 puff INHALE Q6H PRN PRN Reason: shortness of breath or wheezing Last Admin: 03/15/23 08:50 Dose: 2 puff Amlodipine Besylate (Amlodipine Besylate 5 Mg Tablet) 5 mg PO DAILY [facility]; Protocol Last Admin: 03/15/23 08:34 Dose: 5 mg Atorvastatin Calcium (Atorvastatin Calcium 20 Mg Tablet) 20 mg PO DAILY [facility] Last Admin: 03/15/23 08:34 Dose: 20 mg Benztropine Mesylate (Benztropine Mesylate 0.5 Mg Tablet) 0.5 mg PO BID [facility] Last Admin: 03/15/23 08:36 Dose: 0.5 mg Cyclobenzaprine HCl (Cyclobenzaprine Hcl 5 Mg Tablet) 5 mg PO TID PRN PRN Reason: muscle spasm Last Admin: 03/15/23 08:50 Dose: 5 mg Gabapentin (Gabapentin 300 Mg Capsule) 300 mg PO BID [facility] Last Admin: 03/15/23 08:34 Dose: 300 mg Hydroxyzine HCl (Hydroxyzine Hcl 25 Mg Tablet) 25 mg PO Q6H PRN PRN Reason: Anxiety Lisinopril (Lisinopril 10 Mg Tablet) 30 mg PO DAILY [facility]; Protocol Last Admin: 03/15/23 08:33 Dose: 30 mg Magnesium Hydroxide (Milk Of Magnesia 30 Ml Oral.Susp) 30 ml PO DAILY PRN PRN Reason: Constipation Memantine (Memantine Hcl 10 Mg Tablet) 10 mg PO BID [facility] Last Admin: 03/15/23 08:34 Dose: 10 mg Mirabegron (Mirabegron 25 Mg Tab.Er.24h) 25 mg PO DAILY [facility] Last Admin: 03/15/23 08:34 Dose: 25 mg Pt Own Medication ( (Meloxicam 15 Mg)) 15 mg PO DAILY [facility] Last Admin: 03/15/23 08:50 Dose: 15 mg Pt Own Medication ( (Loxapine 10 Mg)) 10 mg PO BID [facility] Last Admin: 03/15/23 08:50 Dose: 10 mg Patient Own Medication (Loxapine 5 Mg) 5 mg PO BEDTIME [facility] Last Admin: 03/14/23 22:09 Dose: 5 mg Pharmacy Consult (Consult Rx Perform Med Rec) 1 each MISCELLANE ONCE PRN PRN Reason: Consult order Pioglitazone HCl (Pioglitazone Hcl 15 Mg Tablet) 15 mg PO DAILY [facility] Last Admin: 03/15/23 08:33 Dose: 15 mg Propranolol HCl (Propranolol Hcl 20 Mg Tablet) 20 mg PO TID [facility]; Protocol Last Admin: 03/15/23 08:34 Dose: 20 mg Allergies Allergies Allergy/AdvReac Type Severity Reaction Status Date / Time haloperidol [HALOPERIDOL] Allergy Intermediate SWELLING Verified 03/09/23 16:25 carbamazepine [From Tegretol] Allergy Mild RASH, Verified 03/09/23 16:25 TREMORS lithium [[place]] Allergy Mild RASH, Verified 03/09/23 16:25 CRAWLING OUT OF SKIN olanzapine [From Zyprexa] Allergy Mild RICHARD Verified 03/09/23 16:25 quetiapine [From Seroquel] Allergy Mild SWELLING Verified 03/09/23 16:25 WHOLE BODY, RICHARD topiramate [From TOPAMAX] Allergy Unknown RICHARD, SI Verified 03/09/23 16:25 trazodone [TRAZODONE] Allergy Unknown SYNCOPE Verified 03/09/23 16:25 aripiprazole [From ABILIFY] AdvReac Severe EXTREME SI Verified 03/09/23 16:25 metformin AdvReac Intermediate Diarrhea Verified 03/09/23 16:25 lamotrigine [From Lamictal] AdvReac Mild RICHARD Verified 03/09/23 16:25 modafinil [From Provigil] AdvReac Mild RICHARD Verified 03/09/23 16:25 ALL ANTI DEPRESSENTS Allergy Unknown I GO Uncoded 03/09/23 16:25 MANIC All anti-depressants Allergy Unknown manic, rash Uncoded 03/09/23 16:25 From GEODON Allergy Unknown LETHARGY Uncoded 03/09/23 16:25 From WELLBUTRIN AdvReac Unknown AGITATION, Uncoded 03/09/23 16:25 MAVIS Assessment & Plan Assessment & Plan (1) Bipolar 1 disorder: Status: Acute Code(s): F31.9 - Bipolar disorder, unspecified (2) Post traumatic stress disorder (PTSD): Status: Acute Code(s): F43.10 - Post-traumatic stress disorder, unspecified (3) Type 2 diabetes mellitus with hyperglycemia: Qualifiers: Diabetes mellitus residential insulin use: without residential use Qualified Code(s): E11.65 - Type 2 diabetes mellitus with hyperglycemia Status: Acute Code(s): E11.65 - Type 2 diabetes mellitus with hyperglycemia (4) Diabetic neuropathy: Status: Acute Code(s): E11.40 - Type 2 diabetes mellitus with diabetic neuropathy, unspecified Plan Patient is a 62-year-old female with history of bipolar, PTSD, multiple psych admits, who presents for worsening depression, SI and auditory hallucinations and the face of recent psychosocial stressors including her mother's this past November and sister's just 3 weeks ago. Patient reports that she takes her medications regularly without fail and has a visiting nurse. -patient reports continued stability on current medication regimen and that psychotic symptoms other result of feeling overwhelmed with sad anxious thoughts Plan: CV Q 15 minute checks Continue loxapine 10 mg daily and 15 mg at bedtime DC Lipitor; patient says she was taken off this quite a while ago Patient takes meloxicam; does not want naproxen; will have family member bring it in which can replace naproxen Med rec consult placed to assess scripts for sitagliptin and darifenacin (pt currently on Myrbetriq; not sure if needs both) Otherwise continue home medication Hospital Course 03/12: Meloxicam and base dose of Loxapine ordered. Continue current regime and plan of care. 03/13: Restarted Cogentin. Ordered Glucose POC in AM daily. Continue treatment. 03/14: Continue current treatment plan. 03/15 patient reports she is feeling much better and back to her regular self; depression and SI fully abated; AVH fully resolved, sleeping well and no nightmares. Patient feels ready to discharge home. Patient has had many admissions and staff who know her well agree that she is at her baseline. Patient has a history of willingness to reach out for help in feeling unsafe. Patient is not in imminent risk for harm to self or others and is ready to [facility] treatment in the community; her request for discharge honored. Patient educated on: diagnosis and medication risk/benefits Informed Consent: understands Reason for continued inpatient stay Substantial Risk for: stable for discharge Time Spent With Patient Time: Total time managing care of this patient today ____ minutes.
[2023-03-15] MEDS: clonazePAM 0.5 MG TABLET PO ×2 (11:34→21:13)
[2023-03-15 18:00] VITALS: BP 179/103; PULSE 80; RESP 20; TEMP 36; O2SAT 95
[2023-03-15 21:15] VITALS: BP 179/103
[2023-03-16] MEDS: Acetaminophen 325 MG TABLET 650 MG PO (04:58)
[2023-03-16 08:03] LABS: Glucose, Whole Blood 254 mg/dL (60-115)
[2023-03-16 08:10] VITALS: BP 141/89; PULSE 60; RESP 16; TEMP 36.4; O2SAT 96
[2023-03-16] MEDS: Memantine HCl 10 MG TABLET PO (08:15)
[2023-03-16] MEDS: Benztropine Mesylate 0.5 MG TABLET PO (08:15)
[2023-03-16] MEDS: lisinopriL 10 MG TABLET 30 MG PO (08:15)
[2023-03-16] MEDS: Propranolol HCL 20 MG TABLET PO (08:15)
[2023-03-16] MEDS: Mirabegron 25 MG TAB.ER.24H PO (08:15)
[2023-03-16] MEDS: Cyclobenzaprine HCl 5 MG TABLET PO (08:19)
[2023-03-16] MEDS: clonazePAM 0.5 MG TABLET PO (08:19)
[2023-03-16] MEDS: Gabapentin 300 MG CAPSULE PO (08:21)
[2023-03-16] MEDS: amLODIPine Besylate 5 MG TABLET PO (08:21)
--- NOTE | 2023-03-16 09:49 | PM.PSYDC ---
DS: Providers Provider Date of Service: 03/16/23 Date of admission: 03/10/23 16:17 Date of discharge: 03/16/23 Primary care physician: Kira Craven MD Attending physician on admission: Kyree Garcia Attending physician on discharge: Kyree Garcia DS: Diagnosis Discharge Diagnosis (1) Bipolar 1 disorder: Status: Acute (2) Post traumatic stress disorder (PTSD): Status: Acute (3) Type 2 diabetes mellitus with hyperglycemia: Status: Acute (4) Diabetic neuropathy: Status: Acute DS: Medications Discharge Medications Home Medications: Home Medications Medication Instructions Recorded Confirmed amlodipine 5 mg tablet 5 mg PO DAILY 03/09/23 03/09/23 clonazepam 0.5 mg tablet 0.5 mg PO TID PRN anxiety 03/09/23 03/09/23 cyclobenzaprine 5 mg tablet 5 mg PO TID PRN muscle spasm 03/09/23 03/09/23 lisinopril 30 mg tablet 30 mg PO DAILY 03/09/23 03/09/23 memantine 10 mg tablet 10 mg PO BID 03/09/23 03/09/23 mirabegron 25 mg tablet,extended 25 mg PO DAILY 03/09/23 03/09/23 release 24 hr (Myrbetriq) pioglitazone 15 mg tablet 15 mg PO DAILY 03/09/23 03/09/23 propranolol 20 mg tablet 20 mg PO TID 03/09/23 03/09/23 sitagliptin phosphate 100 mg 100 mg PO DAILY 03/09/23 03/10/23 tablet (Januvia) darifenacin 7.5 mg tablet,extended 7.5 mg PO DAILY 03/10/23 03/10/23 release 24 hr benztropine 0.5 mg tablet 0.5 mg PO BID 03/11/23 03/11/23 Previous Rx's Medication Instructions Recorded albuterol sulfate 90 mcg/actuation 2 inh inhalation Q6-8H PRN 03/10/22 aerosol inhaler shortness of breath or wheezing #8.5 grams gabapentin 300 mg capsule 300 mg PO BID 30 days #60 caps 03/16/23 loxapine succinate 10 mg capsule 10 mg PO BID 30 days #60 caps 03/16/23 loxapine succinate 5 mg capsule 5 mg PO BEDTIME 30 days #30 caps 03/16/23 meloxicam 15 mg tablet 15 mg PO DAILY 30 days #30 tabs 03/16/23 Mental Status Exam Mental Status Exam Narrative: Pt is alert and oriented; behavior is cooperative, friendly, calm; dressed in casual attire with adequate hygiene; mood is described as good and affect congruent, calm, bright; eye contact appropriate; Speech is normal rate, volume and prosody and not pressured; no psychomotor agitation/retardation present; thought process is goal directed; Thought content is on feeling better, making peace with losing loved ones; otherwise pertinent to relevant topics; no paranoid or delusionary thoughts; no SI; no HI; no AVH; Patients insight and judgment are fair Data Data Completed and Pending Completed studies during hospitalization [Text1]: 03/09/23 03/09/23 03/09/23 17:00 17:00 17:09 WBC 8.6 RBC 4.93 Hgb 13.8 Hct 41.9 MCV 85.0 MCH 28.0 MCHC 32.9 RDW 13.2 Plt Count 175 MPV 10.2 Immature Gran % (Auto) 0.2 Neut % (Auto) 41.0 L Lymph % (Auto) 45.5 H Traill % (Auto) 8.4 Eos % (Auto) 3.6 Baso % (Auto) 1.3 Lymph # (Auto) 3.9 Traill # (Auto) 0.7 Eos # (Auto) 0.3 Baso # (Auto) 0.1 Abs Immat Gran (auto) 0.02 Absolute Neuts (auto) 3.5 Absolute Nucleated RBC 0.000 Nucleated RBC % (auto) 0.0 Sodium Potassium Chloride Carbon Dioxide Anion Gap BUN Creatinine Estim Creat Clear Calc Estimated GFR POC Glucose Random Glucose Fasting Glucose Estimat Average Glucose Hemoglobin A1c % Calcium Total Bilirubin AST ALT Alkaline Phosphatase Total Protein Albumin Triglycerides Cholesterol LDL Cholesterol, Calc HDL Cholesterol Vitamin B12 TSH Urine Color Yellow Urine Appearance Clear Urine pH 6.0 Ur Specific [place] <= 1.005 Urine Protein Negative Urine Glucose (UA) Negative Urine Ketones Negative Urine Blood Negative Urine Nitrite Negative Ur Leukocyte Esterase Trace H Urine RBC 0-2 Urine WBC 0-5 Ur Squamous Epith Cells 0-2 Urine Bacteria None Seen Hyaline Casts 0-2 Urine Opiates Screen Not Detected Urine Fentanyl Screen Not Detected Acetaminophen Ur Barbiturates Screen Not Detected Ur Phencyclidine Scrn Not Detected Ur Amphetamines Screen Not Detected U Benzodiazepines Scrn Not Detected Urine Cocaine Screen Not Detected U Marijuana (THC) Screen Not Detected COVID-19 ([facility]) COVID-19 Clin Com 03/09/23 03/09/23 03/09/23 17:09 17:09 17:09 WBC RBC Hgb Hct MCV MCH MCHC RDW Plt Count MPV Immature Gran % (Auto) Neut % (Auto) Lymph % (Auto) Traill % (Auto) Eos % (Auto) Baso % (Auto) Lymph # (Auto) Traill # (Auto) Eos # (Auto) Baso # (Auto) Abs Immat Gran (auto) Absolute Neuts (auto) Absolute Nucleated RBC Nucleated RBC % (auto) Sodium 136 Potassium 4.5 Chloride 102 Carbon Dioxide 22 Anion Gap 17 BUN 14 Creatinine 0.88 Estim Creat Clear Calc 69.4 Estimated GFR > 60 POC Glucose Random Glucose 154 H Fasting Glucose Estimat Average Glucose Hemoglobin A1c % Calcium 10.0 Total Bilirubin 0.9 AST 30 ALT 30 Alkaline Phosphatase 129 H Total Protein 8.5 H Albumin 4.2 Triglycerides Cholesterol LDL Cholesterol, Calc HDL Cholesterol Vitamin B12 TSH Urine Color Urine Appearance Urine pH Ur Specific [place] Urine Protein Urine Glucose (UA) Urine Ketones Urine Blood Urine Nitrite Ur Leukocyte Esterase Urine RBC Urine WBC Ur Squamous Epith Cells Urine Bacteria Hyaline Casts Urine Opiates Screen Urine Fentanyl Screen Acetaminophen < 17 Ur Barbiturates Screen Ur Phencyclidine Scrn Ur Amphetamines Screen U Benzodiazepines Scrn Urine Cocaine Screen U Marijuana (THC) Screen COVID-19 ([facility]DAIR) Negative COVID-19 Clin Com See Note 03/11/23 03/11/23 03/11/23 08:18 08:18 08:18 WBC RBC Hgb Hct MCV MCH MCHC RDW Plt Count MPV Immature Gran % (Auto) Neut % (Auto) Lymph % (Auto) Traill % (Auto) Eos % (Auto) Baso % (Auto) Lymph # (Auto) Traill # (Auto) Eos # (Auto) Baso # (Auto) Abs Immat Gran (auto) Absolute Neuts (auto) Absolute Nucleated RBC Nucleated RBC % (auto) Sodium 139 Potassium 5.1 Chloride 104 Carbon Dioxide 25 Anion Gap 15 BUN 16 Creatinine 0.94 Estim Creat Clear Calc 65.2 Estimated GFR > 60 POC Glucose Random Glucose Fasting Glucose 187 H Estimat Average Glucose 212 Hemoglobin A1c % 9.0 Calcium 10.9 H D Total Bilirubin 0.7 AST 35 H ALT 31 Alkaline Phosphatase 128 H Total Protein 8.9 H Albumin 4.3 Triglycerides 147 Cholesterol 139 LDL Cholesterol, Calc 62 HDL Cholesterol 48 Vitamin B12 645 TSH 0.81 Urine Color Urine Appearance Urine pH Ur Specific [place] Urine Protein Urine Glucose (UA) Urine Ketones Urine Blood Urine Nitrite Ur Leukocyte Esterase Urine RBC Urine WBC Ur Squamous Epith Cells Urine Bacteria Hyaline Casts Urine Opiates Screen Urine Fentanyl Screen Acetaminophen Ur Barbiturates Screen Ur Phencyclidine Scrn Ur Amphetamines Screen U Benzodiazepines Scrn Urine Cocaine Screen U Marijuana (THC) Screen COVID-19 ([facility]) COVID-19 Clin Com 03/14/23 03/15/23 03/16/23 07:52 07:58 07:59 WBC RBC Hgb Hct MCV MCH MCHC RDW Plt Count MPV Immature Gran % (Auto) Neut % (Auto) Lymph % (Auto) Traill % (Auto) Eos % (Auto) Baso % (Auto) Lymph # (Auto) Traill # (Auto) Eos # (Auto) Baso # (Auto) Abs Immat Gran (auto) Absolute Neuts (auto) Absolute Nucleated RBC Nucleated RBC % (auto) Sodium Potassium Chloride Carbon Dioxide Anion Gap BUN Creatinine Estim Creat Clear Calc Estimated GFR POC Glucose 264 H 219 H 254 H Random Glucose Fasting Glucose Estimat Average Glucose Hemoglobin A1c % Calcium Total Bilirubin AST ALT Alkaline Phosphatase Total Protein Albumin Triglycerides Cholesterol LDL Cholesterol, Calc HDL Cholesterol Vitamin B12 TSH Urine Color Urine Appearance Urine pH Ur Specific [place] Urine Protein Urine Glucose (UA) Urine Ketones Urine Blood Urine Nitrite Ur Leukocyte Esterase Urine RBC Urine WBC Ur Squamous Epith Cells Urine Bacteria Hyaline Casts Urine Opiates Screen Urine Fentanyl Screen Acetaminophen Ur Barbiturates Screen Ur Phencyclidine Scrn Ur Amphetamines Screen U Benzodiazepines Scrn Urine Cocaine Screen U Marijuana (THC) Screen COVID-19 ([facility]) COVID-19 Clin Com DS: Summary Hospital Course Hospital Course: Patient is a 62-year-old female with history of bipolar, PTSD, multiple psych admits, who presents for worsening depression, SI and auditory hallucinations and the face of recent psychosocial stressors including her mother's this past November and sister's just 3 weeks ago.? Patient reports that she takes her medications regularly without fail and has a visiting nurse.? -patient reports continued stability on current medication regimen and that psychotic symptoms other result of feeling overwhelmed with sad anxious thoughts Patient's hospital course followed a similar pattern to past admissions. On admission she was anxious, sad and with AH; however, SI soon fully resolved. She was continued on her home medication. Soon patient's mood significantly returned, depression fully resolved, AH fully resolved and she returned to baseline. She reported good sleep, no nightmares and patient felt anxiety had also dissipated. Patient reported feeling back to her regular self and felt ready for discharge. Patient returns home where significant outpatient support is already in place, including with established providers. Patient has a history of willingness to reach out for help in feeling unsafe.? Patient is not in imminent risk for harm to self or others and is ready to continue treatment in the community; her request for discharge honored. Time spent discussing smoking cessation with patient: 3 to 10 minutes Status at Discharge Functional status at discharge: independent ambulation Overall status at discharge: patient is back to baseline Time Spent with Patient Time attestation: Total time managing care of this patient today ____ minutes. Time spent: Less than 30 minutes Discharge Plan Discharge Anticipated Discharge Date/Time: 03/16/23 11:30 Patient Disposition: Home, Self-Care Discharge Diagnosis: Bipolar I disorder, recurrent, severe most recent episode depressed in full remission Referrals: Meera Pompa (therapist) [Other] - 03/19/23 (Hospital Discharge Appointment with therapist) Dr. Hopson (psychiatrist) [Other] - 04/06/23 9:00 am (Follow-up discharge appointment with psychiatric medication provider Appointment in person at [facility] ) Kira Craven MD [Primary Care Provider] - 03/17/23 12:30 pm (in office) Discharge Medications: Continued clonazepam 0.5 mg tablet 0.5 mg PO TID PRN (Reason: anxiety) amlodipine 5 mg tablet 5 mg PO DAILY lisinopril 30 mg tablet 30 mg PO DAILY propranolol 20 mg tablet 20 mg PO TID cyclobenzaprine 5 mg tablet 5 mg PO TID PRN (Reason: muscle spasm) memantine 10 mg tablet 10 mg PO BID Myrbetriq 25 mg tablet extended release 24 hr 25 mg PO DAILY Januvia 100 mg tablet 100 mg PO DAILY darifenacin 7.5 mg tablet extended release 24 hr 7.5 mg PO DAILY benztropine 0.5 mg tablet 0.5 mg PO BID meloxicam 15 mg tablet 15 mg PO DAILY 30 Days Qty: 30 0RF albuterol sulfate 90 mcg/actuation HFA aerosol inhaler 2 inh inhalation Q6-8H PRN (Reason: shortness of breath or wheezing) Qty: 8.5 0RF Changed loxapine succinate 5 mg capsule 5 mg PO BEDTIME 30 Days Qty: 30 0RF Rx Instructions: take at bedtime with 10mg capsule loxapine succinate 10 mg capsule 10 mg PO BID 30 Days Qty: 60 0RF gabapentin 300 mg capsule 300 mg PO BID 30 Days Qty: 60 0RF Discontinued atorvastatin 20 mg tablet 20 mg PO DAILY No Action (DME) FreeStyle Lite Strips Strip See Rx Instructions .ROUTE .MEDSUPPLY Qty: 100 3RF Rx Instructions: As directed check the BS QD Jardiance 10 mg tablet 10 mg PO DAILY Qty: 30 3RF Discharge Orders: Discharge Order (Routine); Ordered 03/16/23 Ordered By: Kyree Garcia Diet: Diabetic diet Activity on Discharge: As tolerated Stand Alone Forms: Patient Portal Discharge page, Community Support Care Plan Goals: Maintain mood and safe behaviors Take medications as prescribed Continue to pursue sobriety Practice coping skills Continue with outpatient providers and reach out to them as needed Health Concerns: Mood stability and behaviors Diabetes Diabetic neuropathy Hypertension Plan of Treatment: Follow up with your PCP, psychiatric provider and other outpatient providers regarding above concerns Take medications as prescribed Assessment: Risk assessment at time of discharge:? Patient was interviewed prior to discharge and found to be fully oriented and without any SI or HI. Patient has insight and demonstrates good judgment in terms of wanting to pursue treatment. Patient is not in imminent risk of harm to self or others and has a safety plan that includes presenting to the closest ER or calling 911 if feeling unsafe.? Patient has been observed closely by nursing and unit staff throughout admission; patient has not engaged in any behaviors that suggest dangerousness to self or others and has demonstrated appropriate behaviors and impulse control Discharge Date/Time: 03/16/23 11:38
== END 2023-03-16 11:38 | disposition home or self-care (01) | DRG 885 ==
LOC: HO.ED 03-10 01:17 → HO.PM5 03-10 16:31
PROVIDERS: Admitting Provider Social Worker; Emergency Provider Emergency Medicine; PCP Internal Medicine; Visit Provider Psychiatry & Neurology Psychiatry
DX: F31.4 Bipolar disorder, current episode depressed, severe, without psychotic features (principal); R45.851 Suicidal ideations; J45.909 Unspecified asthma, uncomplicated; F43.10 Post-traumatic stress disorder, unspecified; E11.65 Type 2 diabetes mellitus with hyperglycemia; E11.40 Type 2 diabetes mellitus with diabetic neuropathy, unspecified; I10 Essential (primary) hypertension; Z20.822 Contact with and (suspected) exposure to COVID-19; Z87.891 Personal history of nicotine dependence; Z79.84 Long term (current) use of oral hypoglycemic drugs; Z79.899 Other long term (current) drug therapy
CPT/HCPCS: 36415; 80053; 80061; 80143; 80307; 81001; 82607; 82947; 83036; 84443; 85025; 87635; 93005; 99285; S9485

== ENCOUNTER 2023-04-06 14:40 | Outpatient (REF) | payer OTHER, SELFPAY | END 2023-04-06 14:41 | disposition home or self-care (01) | LOC: HO.LNP 14:40 | PROVIDERS: PCP Internal Medicine; Visit Provider Advanced Practice Midwife | DX: Z13.89 Encounter for screening for other disorder (principal) ==

== ENCOUNTER 2023-04-06 14:40 | Outpatient (AMB) | payer OTHER, SELFPAY ==
[2023-04-06 14:46] VITALS: BP 130/80; BMI 36.9
--- NOTE | 2023-04-06 14:46 | MHC.OFFVIS ---
Intake Vital Signs 04/06/23 14:46 Height 5 ft 2 in Weight 202 lb BMI 36.9 BP 130/80 Intake Visit Reasons: New patient Annual Intake Note: The patient agreed to use of a manager medical device during this encounter. Scribed for CODY Crawford by Gianna Magaña manager medical device, on 04/06/2023 at 3:00 pm EST. Firebrick Layer Helper Required: No Information Interpreted: non-clinical & clinical Nicking Machine Operator: Nicking Machine Operator Present (Aidyn) Allergies haloperidol [HALOPERIDOL] Allergy (Intermediate, Verified 04/06/23 14:51) SWELLING carbamazepine [From Tegretol] Allergy (Mild, Verified 04/06/23 14:51) RASH, TREMORS lithium [[place]] Allergy (Mild, Verified 04/06/23 14:51) RASH, CRAWLING OUT OF SKIN olanzapine [From Zyprexa] Allergy (Mild, Verified 04/06/23 14:51) RICHARD quetiapine [From Seroquel] Allergy (Mild, Verified 04/06/23 14:51) SWELLING WHOLE BODY, RICHARD topiramate [From TOPAMAX] Allergy (Unknown, Verified 04/06/23 14:51) RICHARD, SI trazodone [TRAZODONE] Allergy (Unknown, Verified 04/06/23 14:51) SYNCOPE aripiprazole [From ABILIFY] Adverse Reaction (Severe, Verified 04/06/23 14:51) EXTREME SI empagliflozin [From Jardiance] Adverse Reaction (Intermediate, Verified 04/06/23 14:51) facial rash metformin Adverse Reaction (Intermediate, Verified 04/06/23 14:51) Diarrhea pioglitazone Adverse Reaction (Intermediate, Verified 04/06/23 14:51) leg swelling lamotrigine [From Lamictal] Adverse Reaction (Mild, Verified 04/06/23 14:51) RICHARD modafinil [From Provigil] Adverse Reaction (Mild, Verified 04/06/23 14:51) RICHARD ALL ANTI DEPRESSENTS Allergy (Unknown, Uncoded 04/06/23 14:51) I GO MANIC All anti-depressants Allergy (Unknown, Uncoded 04/06/23 14:51) manic, rash From GEODON Allergy (Unknown, Uncoded 04/06/23 14:51) LETHARGY From WELLBUTRIN Adverse Reaction (Unknown, Uncoded 04/06/23 14:51) MAVIS SAN Is last menstrual period known: No Post menopausal: Yes HPI HPI Comments History of Present Illness Details She is a new patient postmenopausal woman presenting for annual exam. Doing well with no operator weapon locating radar concerns. Patient admits she tries to eat a healthy diet including Calcium and Vitamin D. She stays active with exercise. Currently sexually active. Admits vaginal dryness and uses lubricants. Denies vaginal itching and irritation. STD screening and blood work offered; she accepts. Denies family hx of breast, colon and ovarian cancer. Last pap smear a year ago per pt; neg Last mammogram 05/12/22 UTD on colonoscopy. [facility] Medical History Asthma Back pain Breast cancer screening by mammogram Bruising Cellulitis of right anterior lower leg Chronic hepatitis C Cognitive impairment Dementia Diabetic neuropathy Diarrhea Dissociative identity disorder Fatty liver GERD (gastroesophageal reflux disease) Hallucinations Hypercholesterolemia Hypertension Leg swelling Richard Mild cognitive impairment Obesity (BMI 30-39.9) Peripheral vascular disease Polysubstance abuse Type 2 diabetes mellitus with hyperglycemia Uterine prolapse Vaginal pain Surgical History History of appendectomy History of cholecystectomy History of ectopic History of tonsillectomy Family History Father Diabetes Hypertension Mother Hypertension Diabetes CVD (cardiovascular disease) CAD (coronary artery disease) Maternal Aunt Myocardial infarction Maternal Uncle Myocardial infarction Social History Household Members: Family and None Housing: House Do you presently have visiting nurse or other home services: Yes Unable to assess alcohol history related to: Unknown Alcohol intake: never Patient Tobacco Use Status: Former Tobacco user Tobacco use type: Cigarette e-Cigarette/Vaping Use: Never Used Second Hand Smoke Exposure: No service: No Sexual orientation: Straight/Heterosexual Cognitive needs: No Hearing needs: No Vision needs: Yes Female Reproductive History Menstrual Age of Menarche: 12 control method: none Total pregnancies: 5 Full term: 3 Number of Living Children: 3 Ectopics: 3 Date of last pap smear: 12/28/18 (negative) History of abnormal pap smear: No Date of Mammogram: 05/12/22 Physical Exam Vital Signs: Last Vital Signs BP 130/80 04/06/23 14:46 BMI result Body Mass Index 36.9 Const General: cooperative, healthy appearing, no acute distress, well developed and alert Orientation/consciousness: patient oriented x3 HEENT Head: Yes normal to inspection Eyes General: appearance normal, both eyes and all related structures Neck Neck: Yes normal visual inspection Thyroid: Thyroid normal Chest Chest palpation & inspection: normal inspection of the chest Breast/axilla inspection: normal inspection of the breasts (no puckering, dimpling, peau de orange, retraction, discharge, masses) Breast/axilla palpation: normal palpation of the breasts Resp Effort & Inspection: normal respiratory effort GI Inspection: Yes normal to inspection Palpation (GI): Soft to palpation (to palpation) Rectal Exam - Female: deferred General: Yes bladder normal to inspection External Female Exam: normal external appearance and normal appearance of the urethra Speculum Exam - Vagina: normal appearance of the vagina, normal palpation and vagina atrophic Speculum Exam - Cervix: normal appearance of the cervix and normal palpation Bimanual exam- vagina & uterus: normal palpation and normal palpation Bimanual Exam- Adnexa, other: normal adnexae and no masses Skin General skin exam: no rashes or lesions noted Neuro General: patient oriented x3 Cognition (Neuro): normal cognition Extrem General: Yes normal to inspection Psych Attitude: cooperative Thought process: Normal thought process present Thought content: Normal thought content present Assessment & Plan Assessment & Plan (1) Encounter for well woman exam: Code(s): Z01.419 - Encounter for gynecological examination (general) (routine) without abnormal findings Plan: Discussed: Current recommendations for pap smears per ASCCP guidelines. Breast awareness and periodic self breast exams. Encouraged yearly mammograms. Maintaining a healthy lifestyle including a well balanced diet including Calcium and Vitamin D and routine exercise. BV testing, STD blod work and GV/CT panel done. Await results and treat accordingly. Contact office with any PMB. All of her questions and concerns were addressed to the best of my ability RTO in 1 year for AG. Orders: Orders HIV Ab/Ag Today Z20.2 - Contact with and (suspected) exposure to infections with a predominantly sexual mode of transmission Syphilis Screen Today Z20.2 - Contact with and (suspected) exposure to infections with a predominantly sexual mode of transmission CT NG by PCR Today Z01.419 - Encounter for gynecological examination (general) (routine) without abnormal findings Coding Level of Care Code New Pt Prev Care 40-64y(02764) Diagnoses Encounter for well woman exam Z01.419
== END 2023-04-06 15:13 | disposition home or self-care (01) ==
LOC: HO.HWS 14:40
PROVIDERS: PCP Internal Medicine; Visit Provider Advanced Practice Midwife
DX: Z01.419 Encounter for gynecological examination (general) (routine) without abnormal findings (principal)
CPT/HCPCS: 99386

== ENCOUNTER 2023-04-06 15:17 | Outpatient (REF) | payer OTHER, SELFPAY ==
[2023-04-07 04:56] LABS: Syphilis Screen Reactive (Nonreactive)
[2023-04-07 05:12] LABS: HIV AB/AG Nonreactive (Nonreactive); HIV Num 1 0.05 S/CO (0.00-0.99)
[2023-04-07 09:15] LABS: CT PCR NOT DETECTED (Not Detect.); NG PCR NOT DETECTED (Not Detect.)
[2023-04-12 15:25] LABS: RPR Quantitative Non-Reactive (Nonreactive)
[2023-04-12 15:26] LABS: T.Pallidum Particle Agg Test Non-Reactive (Nonreactive)
== END 2023-04-06 15:18 | disposition home or self-care (01) ==
LOC: HO.LAB 15:17
PROVIDERS: PCP Internal Medicine; Visit Provider Advanced Practice Midwife
DX: Z11.4 Encounter for screening for human immunodeficiency virus [HIV] (principal); Z20.2 Contact with and (suspected) exposure to infections with a predominantly sexual mode of transmission
CPT/HCPCS: 0353U; 36415; 86592; 86780; 87389

== ENCOUNTER 2023-04-22 15:44 | Outpatient (AMB) | payer OTHER, SELFPAY ==
[2023-04-22 15:48] VITALS: BMI 38.0
--- NOTE | 2023-04-22 15:48 | MHC.OFFVIS ---
Intake Vital Signs 04/22/23 15:48 Height 5 ft 1 in Weight 201 lb 0.985 oz BMI 38.0 Intake Visit Reasons: Diarrhea Intake Note: Patient presents to in office visit today as a new patient for diarrhea. CC: Patient reports she has been having diarrhea for a while now . She also reports occasional GERD. Denies other GI symptoms today. Caterer Helper Required: No Accompanied by: Daughter Allergies haloperidol [HALOPERIDOL] Allergy (Intermediate, Verified 04/06/23 14:51) SWELLING carbamazepine [From Tegretol] Allergy (Mild, Verified 04/06/23 14:51) RASH, TREMORS lithium [[place]] Allergy (Mild, Verified 04/06/23 14:51) RASH, CRAWLING OUT OF SKIN olanzapine [From Zyprexa] Allergy (Mild, Verified 04/06/23 14:51) RICHARD quetiapine [From Seroquel] Allergy (Mild, Verified 04/06/23 14:51) SWELLING WHOLE BODY, RICHARD topiramate [From TOPAMAX] Allergy (Unknown, Verified 04/06/23 14:51) RICHARD, SI trazodone [TRAZODONE] Allergy (Unknown, Verified 04/06/23 14:51) SYNCOPE aripiprazole [From ABILIFY] Adverse Reaction (Severe, Verified 04/06/23 14:51) EXTREME SI empagliflozin [From Jardiance] Adverse Reaction (Intermediate, Verified 04/06/23 14:51) facial rash metformin Adverse Reaction (Intermediate, Verified 04/06/23 14:51) Diarrhea pioglitazone Adverse Reaction (Intermediate, Verified 04/06/23 14:51) leg swelling lamotrigine [From Lamictal] Adverse Reaction (Mild, Verified 04/06/23 14:51) RICHARD modafinil [From Provigil] Adverse Reaction (Mild, Verified 04/06/23 14:51) RICHARD ALL ANTI DEPRESSENTS Allergy (Unknown, Uncoded 04/06/23 14:51) I GO MANIC All anti-depressants Allergy (Unknown, Uncoded 04/06/23 14:51) manic, rash From GEODON Allergy (Unknown, Uncoded 04/06/23 14:51) LETHARGY From WELLBUTRIN Adverse Reaction (Unknown, Uncoded 04/06/23 14:51) AGITATION, MAVIS HPI Diarrhea HPI Details 62-year-old female here for initial evaluation of diarrhea. She is referred by Kira Leach [place] [facility] [place]. PMX Asthma Hypertension High cholesterol Diabetes Obesity Mixed urinary incontinence GERD Vascular dementia/schizoaffective disorder/PTSD/anxiety depression/bipolar disorder/dissociative identity disorder/history of polysubstance abuse/hallucinations Chronic hepatitis C Diabetic neuropathy Fatty liver Uterine prolapse Peripheral vascular disease with history of cellulitis *. SURGICAL HISTORY Cholecystectomy Appendectomy - Pt denies History of ectopic Tonsillectomy * ALLERGIES Haldol Carbamazepine [place] Olanzapine Seroquel Topamax Trazodone Abilify Jardiance Metformin Pioglitazone Lamictal Provigil All antidepressants Geodon Wellbutrin * [facility] LABS: Laboratory Tests 02/09/23 03/09/23 03/11/23 14:51 17:09 08:18 WBC 8.6 Hgb 13.8 Hct 41.9 Plt Count 175 Estimated GFR > 60 Hgb A1c (Clinic) 7.8 H Hemoglobin A1c % Total Bilirubin 0.7 AST 35 H ALT 31 Alkaline Phosphata se 128 H 03/11/23 08:18 WBC Hgb Hct Plt Count Estimated GFR Hgb A1c (Clinic) Hemoglobin A1c % 9.0 Total Bilirubin AST ALT Alkaline Phosphata se COLONOSCOPY -2017 PROCEDURE IN DETAIL:Digital rectal exam revealed slightly decreased sphincter tone. Videocolonoscopewas introduced without difficulty. It is navigated into the rectosigmoid, sigmoidand up through descending, transverse and ascending colon. Prep was excellent, mildredundancy. With gentle extrinsic pressure, we were able to navigate through theascending colon down into the cecal cap. Appendiceal orifice was seen. Ileocecalvalve was seen. No mucosal abnormalities were appreciated. Right and left randomcolon biopsies were obtained. There was a thickened fold at approximately 70 cm inthe distal transverse colon excisional biopsies, question of polyp. However, oncebiopsied, it looked more like lipomatous change. The scope continued to bewithdrawn. There was a diminutive polyp removed at 30 cm. Anorectal verge wasclear. GENERAL IMPRESSION:1. Colonic polyp. Lipomatous fold, and hyperplastic polyp2. History of diarrhea. (No inflamation in the randome biopsies) PLAN:Currently, repeat asymptomatic screening in a non-high risk patient is 10 years. Shivani Juarez MD cc: KIRA LEACH MD 11/17/2016 12:09:34 A. FRAGMENTS OF HYPERPLASTIC POLY P WITH SUBJACENT A DIPOSE TISSUE. B. COLONIC MUCO SA WITH NO DIAGNOS TIC ABNORMALITY. C. COLONIC MUCO SA WITH NO DIAGNOS TIC ABNORMALITY. D. FRAGMENTS OF HYPERPLASTIC POLY P. TODAY'S VISIT She is here with a female family member who is supportive. She has the same complaint of diarrhea before last colonoscopy which is why they did biopsies that were completely normal. 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 I explained how this can be the case despite not developing diarrhea immediately after the surgery. Sometimes the pancreas can keep up with the demand for the extra enzymes but as we age a gets less sufficient being able to do this and many people will develop diarrhea despite the remote history of there cholecystectomy. She has no alarm signs or symptoms and no abdominal pain. We discuss fat in r/t the diarrhea and that limiting fat in the diet is another strategy along with medication to better control the bowels.. She has used Imodium but the diarrhea will come right back. I suggest that we start with a trial of cholestyramine and we can titrate this or progress to other medications depending on her response. ROV 3 weeks. [facility] Medical History (Updated 04/22/23 @ 16:03 by ANDI Robles) Asthma Back pain Breast cancer screening by mammogram Bruising Cellulitis of right anterior lower leg Chronic hepatitis C Cognitive impairment Dementia Diabetic neuropathy Diarrhea Dissociative identity disorder Fatty liver GERD (gastroesophageal reflux disease) Hallucinations Hypercholesterolemia Hypertension Leg swelling Richard Mild cognitive impairment Obesity (BMI 30-39.9) Peripheral vascular disease Polysubstance abuse Type 2 diabetes mellitus with hyperglycemia Uterine prolapse Vaginal pain Surgical History (Updated 04/23/23 @ 16:16 by ANDI Robles) H/O colonoscopy History of appendectomy History of cholecystectomy History of ectopic History of tonsillectomy Family History (Updated 04/22/23 @ 15:56 by GILBERT Lucas) Father Diabetes Hypertension Mother Hypertension Diabetes CVD (cardiovascular disease) CAD (coronary artery disease) Maternal Aunt Myocardial infarction Cancer Maternal Uncle Myocardial infarction Social History Household Members: Family and None Housing: House Do you presently have visiting nurse or other home services: Yes Unable to assess alcohol history related to: Unknown Alcohol intake: never Patient Tobacco Use Status: Former Tobacco user Tobacco use type: Cigarette e-Cigarette/Vaping Use: Never Used Second Hand Smoke Exposure: No service: No Sexual orientation: Straight/Heterosexual Cognitive needs: No Hearing needs: No Vision needs: Yes Female Reproductive History Menstrual Age of Menarche: 12 Review of Systems Const Denies fatigue, Denies fever(s), Denies night sweats, Denies poor appetite and Denies weight loss Eyes Details: glasses Reports requires corrective lenses ENT Reports Normal hearing present, Denies dental pain, Denies dysphagia, Denies hearing loss, Denies mouth pain, Denies odynophagia, Denies throat swelling, Denies tongue swelling and Reports other (Dentition adequate) Card Reports no additional complaints Resp Reports no additional complaints GI Denies abdominal pain, Denies melena, Denies bloating, Denies hematochezia, Denies constipation, Denies GI cramping, Denies dysphagia, Denies excessive flatus, Denies early satiety, Reports heartburn, Reports diarrhea, Denies nausea, Denies odynophagia, Denies vomiting and Denies hematemesis Reports prolapse symptoms and Reports urinary incontinence Musc Reports back pain Skin/Breast Denies pruritus, Denies lesions, Denies rash and Denies jaundice Neuro Reports Normal hearing present and Denies Abnormal speech present Endo Denies fatigue Aller/Immun Denies throat swelling and Denies tongue swelling Physical Exam Vital Signs: BMI result Body Mass Index 38.0 Const General: cooperative, no acute distress, well developed and well groomed Nutritional Appearance: well nourished and obese morbidly obese Orientation/consciousness: oriented to person, oriented to place and oriented to time Limitations: No language barrier HEENT Head: Yes normocephalic and Yes atraumatic Eyes General: appearance normal, both eyes and all related structures Pupils: Equal, round and reactive pupils present Neck Neck: Yes normal visual inspection and Yes no lymphadenopathy Thyroid: Thyroid normal Resp Effort & Inspection: normal respiratory effort and able to speak in complete sentences Auscultation: clear to auscultation bilaterally Cardio Rate: regular rate Rhythm: regular rhythm Heart sounds: Normal, physiologic split S2 sound present Peripheral pulses: radial pulses present and posterior tibial pulses present GI Inspection: No distended, Yes Abdominal panniculus present and Yes obesity Palpation (GI): Soft to palpation, nontender, no guarding, not rigid and No hepatosplenomegaly present Percussion: Yes normal to percussion Auscultation: normal bowel sounds Rectal Exam - Female: deferred Skin General skin exam: no rashes or lesions noted, turgor normal, skin not dry, no jaundice, No spider nevi and no striae Rashes: no rashes Nails: normal Neuro General: oriented to person, oriented to place and oriented to time Cranial nerves: Yes Equal, round and reactive pupils present and Yes Normal hearing present Speech: No Abnormal speech present Extrem General: Yes normal to inspection, No clubbing, No cyanosis and No edema Psych Appearance: grossly normal and well kempt Mental Status: mental status grossly normal Speech and movement: Normal speech and movement present Affect: normal affect Attitude: cooperative Thought process: Normal thought process present and not confabulating Thought content: Normal thought content present Insight: Limited insight present (Psych) Judgement: Limited judgement present (Psych) Assessment & Plan Assessment & Plan (1) Post-cholecystectomy syndrome: Code(s): K91.5 - Postcholecystectomy syndrome Plan: She is here with a female family member who is supportive. She has the same complaint of diarrhea before last colonoscopy which is why they did biopsies that were completely normal. 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 I explained how this can be the case despite not developing diarrhea immediately after the surgery. Sometimes the pancreas can keep up with the demand for the extra enzymes but as we age a gets less sufficient being able to do this and many people will develop diarrhea despite the remote history of there cholecystectomy. She has no alarm signs or symptoms and no abdominal pain. We discuss fat in r/t the diarrhea and that limiting fat in the diet is another strategy along with medication to better control the bowels.. She has used Imodium but the diarrhea will come right back. I suggest that we start with a trial of cholestyramine and we can titrate this or progress to other medications depending on her response. ROV 3 weeks. Medications: New cholestyramine (with sugar) 4 gram administer w/meal; avoid other meds within 1hr before or 4-6hr after dose 4 grams PO BID 378 grams 6RF K91.5 - Postcholecystectomy syndrome Coding Level of Care Code New Pt Level 3 (60629) Diagnoses Post-cholecystectomy syndrome K91.5
== END 2023-04-22 16:16 | disposition home or self-care (01) ==
PROVIDERS: PCP Internal Medicine; Visit Provider Nurse Practitioner
DX: K91.5 Postcholecystectomy syndrome (principal)
CPT/HCPCS: 99203

== ENCOUNTER → 2023-04-22 15:44 | Outpatient (BNVA) | payer OTHER, SELFPAY | PROVIDERS: PCP Internal Medicine; Visit Provider Nurse Practitioner | DX: K91.5 Postcholecystectomy syndrome (principal) | CPT/HCPCS: 99202 ==

== ENCOUNTER 2023-05-13 14:43 | Outpatient (REF) | payer OTHER, SELFPAY ==
[2023-05-13 17:55] LABS: Appearance Urine Cloudy; Color Urine Yellow; Glucose Urine UA >=1000 mg/dL (Negative); Leukocyte Esterase Urine Moderate (2+) (Negative); Nitrite Urine Positive (Negative); PH 5.5 (5.0-9.0); UMIC TRIGGER UACC YES; Urine Blood Negative (Negative); Urine Ketones Negative (Negative); Urine Protein Negative (Neg-Trace)
[2023-05-13 17:59] LABS: Bacteria Urine 4+ (None Seen); Hyaline Casts Urine 0-2 /LPF (0-2); RBC Urine 0-2 /HPF (0-2); UACC Culture Trigger YES; WBC Urine >50 /HPF (0-5)
== END 2023-05-13 14:44 | disposition home or self-care (01) ==
LOC: HO.LAB 14:43
PROVIDERS: PCP Internal Medicine; Visit Provider Nurse Practitioner
DX: R19.7 Diarrhea, unspecified (principal); K91.5 Postcholecystectomy syndrome; R30.0 Dysuria
CPT/HCPCS: 81001; 87086; 99212

== ENCOUNTER 2023-05-13 14:43 | Outpatient (AMB) | payer OTHER, SELFPAY ==
--- NOTE | 2023-05-13 14:47 | MHC.OFFVIS ---
Intake Vital Signs 05/13/23 14:49 Height 5 ft 1 in Weight 203 lb 4.259 oz BMI 38.4 BP 102/58 L Blood Pressure Location Rt brachial Position Sitting Pulse 67 Intake Visit Reasons: 3 week follow up Intake Note: Patient presents to in office visit today in follow up of diarrhea. CC: Patient reports that diarrhea stopped 4 days ago and she has been having regular BMs. She also reports concerns for UTI. Patient reports burning, itching, and urinary frequency. Form Coverer Required: No Accompanied by: Daughter Allergies haloperidol [HALOPERIDOL] Allergy (Intermediate, Verified 05/13/23 14:54) SWELLING carbamazepine [From Tegretol] Allergy (Mild, Verified 05/13/23 14:54) RASH, TREMORS lithium [[place]] Allergy (Mild, Verified 05/13/23 14:54) RASH, CRAWLING OUT OF SKIN olanzapine [From Zyprexa] Allergy (Mild, Verified 05/13/23 14:54) RICHARD quetiapine [From Seroquel] Allergy (Mild, Verified 05/13/23 14:54) SWELLING WHOLE BODY, RICHARD topiramate [From TOPAMAX] Allergy (Unknown, Verified 05/13/23 14:54) RICHARD, SI trazodone [TRAZODONE] Allergy (Unknown, Verified 05/13/23 14:54) SYNCOPE aripiprazole [From ABILIFY] Adverse Reaction (Severe, Verified 05/13/23 14:54) EXTREME SI empagliflozin [From Jardiance] Adverse Reaction (Intermediate, Verified 05/13/23 14:54) facial rash metformin Adverse Reaction (Intermediate, Verified 05/13/23 14:54) Diarrhea pioglitazone Adverse Reaction (Intermediate, Verified 05/13/23 14:54) leg swelling lamotrigine [From Lamictal] Adverse Reaction (Mild, Verified 05/13/23 14:54) RICHARD modafinil [From Provigil] Adverse Reaction (Mild, Verified 05/13/23 14:54) RICHARD ALL ANTI DEPRESSENTS Allergy (Unknown, Uncoded 04/06/23 14:51) I GO MANIC All anti-depressants Allergy (Unknown, Uncoded 04/06/23 14:51) manic, rash From GEODON Allergy (Unknown, Uncoded 04/06/23 14:51) LETHARGY From WELLBUTRIN Adverse Reaction (Unknown, Uncoded 04/06/23 14:51) AGITATION, MAVIS HPI 3 week follow up HPI Details Assessment & Plan (1) Post-cholecystectomy syndrome: ?Code(s): K91.5 - Postcholecystectomy syndrome ?Plan: She is here with a female family member who is supportive. She has the same complaint of diarrhea before last colonoscopy which is why they did biopsies that were completely normal.? This is most likely post cholecystectomy syndrome given the chronic nature of her diarrhea.? I explained how this can be the case despite not developing diarrhea immediately after the surgery.? Sometimes the pancreas can keep up with the demand for the extra enzymes but as we age a gets less sufficient being able to do this and many people will develop diarrhea despite the remote history of there cholecystectomy. She has no alarm signs or symptoms and no abdominal pain.? We discuss fat in r/t the diarrhea and that limiting fat in the diet is another strategy along with medication to better control the bowels.. She has used Imodium but the diarrhea will come right back. I suggest that we start with a trial of cholestyramine and we can titrate this or progress to other medications depending on her response. ROV 3 weeks. ? ? ? Medications: New cholestyramine (wi th sugar) 4 gram ? ? administer w/lora l; avoid other med s within 1hr befor e or 4-6hr after d ose 4 grams? PO BID 37 8 grams 6RF K91.5 - Postcholec ystectomy syndrome ? TODAY'S VISIT Her diarrhea seems to be now controlled. She finds the cholestyramine agrees with her well. She is having dysuria and I will send her to the lab to get a UA and treat if needed. ROV 3 mos [facility] Medical History (Updated 05/13/23 @ 14:58 by ANDI Robles) Asthma Back pain Breast cancer screening by mammogram Bruising Cellulitis of right anterior lower leg Chronic hepatitis C Cognitive impairment Dementia Diabetic neuropathy Diarrhea Dissociative identity disorder Fatty liver GERD (gastroesophageal reflux disease) Hallucinations Hypercholesterolemia Hypertension Leg swelling Richard Mild cognitive impairment Obesity (BMI 30-39.9) Peripheral vascular disease Polysubstance abuse Type 2 diabetes mellitus with hyperglycemia Uterine prolapse Vaginal pain Surgical History (Updated 04/23/23 @ 16:16 by ANDI Robles) H/O colonoscopy History of appendectomy History of cholecystectomy History of ectopic History of tonsillectomy Family History (Updated 04/22/23 @ 15:56 by Audrey Orozco [facility]) Father Diabetes Hypertension Mother Hypertension Diabetes CVD (cardiovascular disease) CAD (coronary artery disease) Maternal Aunt Myocardial infarction Cancer Maternal Uncle Myocardial infarction Social History Household Members: Family and None Housing: House Do you presently have visiting nurse or other home services: Yes Unable to assess alcohol history related to: Unknown Alcohol intake: never Patient Tobacco Use Status: Former Tobacco user Tobacco use type: Cigarette e-Cigarette/Vaping Use: Never Used Second Hand Smoke Exposure: No service: No Sexual orientation: Straight/Heterosexual Cognitive needs: No Hearing needs: No Vision needs: Yes Female Reproductive History Menstrual Age of Menarche: 12 Review of Systems Const Denies fatigue, Denies fever(s), Denies night sweats, Denies poor appetite and Denies weight loss Eyes Details: glasses Reports requires corrective lenses ENT Reports Normal hearing present, Denies dental pain, Denies dysphagia, Denies hearing loss, Denies mouth pain, Denies odynophagia, Denies throat swelling, Denies tongue swelling and Reports other (Dentition adequate) Card Reports no additional complaints Resp Reports no additional complaints GI Denies abdominal pain, Denies melena, Denies bloating, Denies hematochezia, Denies constipation, Denies GI cramping, Denies dysphagia, Denies excessive flatus, Denies early satiety, Denies heartburn, Reports diarrhea, Denies nausea, Denies odynophagia, Denies vomiting and Denies hematemesis Reports dysuria Skin/Breast Denies pruritus, Denies lesions, Denies rash and Denies jaundice Neuro Reports Normal hearing present and Denies Abnormal speech present Endo Denies fatigue Aller/Immun Denies throat swelling and Denies tongue swelling Physical Exam Vital Signs: Last Vital Signs Pulse 67 05/13/23 14:49 BP 102/58 L 05/13/23 14:49 BMI result Body Mass Index 38.4 Const General: cooperative, no acute distress, well developed and well groomed Nutritional Appearance: well nourished and obese Orientation/consciousness: oriented to person, oriented to place and oriented to time Limitations: No language barrier HEENT Head: Yes normocephalic and Yes atraumatic Eyes General: appearance normal, both eyes and all related structures Pupils: Equal, round and reactive pupils present Neck Neck: Yes normal visual inspection and Yes no lymphadenopathy Thyroid: Thyroid normal Resp Effort & Inspection: normal respiratory effort and able to speak in complete sentences Auscultation: clear to auscultation bilaterally Cardio Rate: regular rate Rhythm: regular rhythm Heart sounds: Normal, physiologic split S2 sound present Peripheral pulses: radial pulses present and posterior tibial pulses present GI Inspection: No distended, Yes Abdominal panniculus present and Yes obesity Palpation (GI): Soft to palpation, nontender, no guarding, not rigid and No hepatosplenomegaly present Percussion: Yes normal to percussion Auscultation: normal bowel sounds Rectal Exam - Female: deferred Skin General skin exam: no rashes or lesions noted, turgor normal, skin not dry, no jaundice, No spider nevi and no striae Rashes: no rashes Nails: normal Neuro General: oriented to person, oriented to place and oriented to time Cranial nerves: Yes Equal, round and reactive pupils present and Yes Normal hearing present Speech: No Abnormal speech present Extrem General: Yes normal to inspection, No clubbing, No cyanosis and No edema Psych Appearance: grossly normal and well kempt Mental Status: mental status grossly normal Speech and movement: Normal speech and movement present Affect: normal affect Attitude: cooperative Thought process: Normal thought process present and not confabulating Thought content: Normal thought content present Insight: Limited insight present (Psych) Judgement: Limited judgement present (Psych) Assessment & Plan Assessment & Plan (1) Post-cholecystectomy syndrome: Code(s): K91.5 - Postcholecystectomy syndrome Plan: Her diarrhea seems to be now controlled. She finds the cholestyramine agrees with her well. She is having dysuria and I will send her to the lab to get a UA and treat if needed. ROV 3 mos (2) Dysuria: Code(s): R30.0 - Dysuria Orders: Orders UA CC w/rflx Micro + Cult 05/13/23 R30.0 - Dysuria Coding Level of Care Code Est Pt Level 3 (47824) Diagnoses Post-cholecystectomy syndrome K91.5 Dysuria R30.0
[2023-05-13 14:49] VITALS: BP 102/58; PULSE 67; BMI 38.4
== END 2023-05-13 15:05 | disposition home or self-care (01) ==
PROVIDERS: PCP Internal Medicine; Visit Provider Nurse Practitioner
DX: K91.5 Postcholecystectomy syndrome (principal); R30.0 Dysuria
CPT/HCPCS: 99213

== ENCOUNTER 2023-05-18 13:59 | Outpatient (REF) | payer OTHER, SELFPAY | END 2023-05-18 14:00 | disposition home or self-care (01) | LOC: HO.MAMMO 13:59 | PROVIDERS: PCP Internal Medicine; Visit Provider Internal Medicine | DX: Z12.31 Encounter for screening mammogram for malignant neoplasm of breast (principal) | CPT/HCPCS: 77063; 77067 ==

== ENCOUNTER → 2023-05-18 14:00 | Outpatient (BNV) | payer OTHER, SELFPAY | PROVIDERS: PCP Internal Medicine; Visit Provider Radiology Diagnostic Radiology | DX: Z12.31 Encounter for screening mammogram for malignant neoplasm of breast (principal) | CPT/HCPCS: 77063; 77067 ==

== ENCOUNTER 2023-06-01 14:39 | Outpatient (AMB) | payer OTHER, SELFPAY ==
[2023-06-01 14:51] VITALS: BP 144/94; PULSE 60; O2SAT 98; BMI 38.5
--- NOTE | 2023-06-01 14:51 | MHC.PC.OV ---
Vital Signs 06/01/23 14:51 06/01/23 15:35 Height 5 ft 1 in Weight 204 lb BMI 38.5 BP 144/94 H 130/80 Blood Pressure Location Lt brachial Lt brachial Position Sitting Sitting Pulse 60 Pulse Source Pulse Oximeter Pulse Oximetry (%) 98 Oxygen Delivery Method Room Air Intake Visit Reasons: DM Telehealth Nurse: Present Allergies haloperidol [HALOPERIDOL] Allergy (Intermediate, Verified 06/01/23 15:23) SWELLING carbamazepine [From Tegretol] Allergy (Mild, Verified 06/01/23 15:23) RASH, TREMORS lithium [[place]] Allergy (Mild, Verified 06/01/23 15:23) RASH, CRAWLING OUT OF SKIN olanzapine [From Zyprexa] Allergy (Mild, Verified 06/01/23 15:23) RICHARD quetiapine [From Seroquel] Allergy (Mild, Verified 06/01/23 15:23) SWELLING WHOLE BODY, RICHARD topiramate [From TOPAMAX] Allergy (Unknown, Verified 06/01/23 15:23) RICHARD, SI trazodone [TRAZODONE] Allergy (Unknown, Verified 06/01/23 15:23) SYNCOPE aripiprazole [From ABILIFY] Adverse Reaction (Severe, Verified 06/01/23 15:23) EXTREME SI amlodipine Adverse Reaction (Intermediate, Unverified 06/01/23 15:43) leg swelling empagliflozin [From Jardiance] Adverse Reaction (Intermediate, Verified 06/01/23 15:23) facial rash metformin Adverse Reaction (Intermediate, Verified 06/01/23 15:23) Diarrhea pioglitazone Adverse Reaction (Intermediate, Verified 06/01/23 15:23) leg swelling lamotrigine [From Lamictal] Adverse Reaction (Mild, Verified 06/01/23 15:23) RICHARD modafinil [From Provigil] Adverse Reaction (Mild, Verified 06/01/23 15:23) RICHARD ALL ANTI DEPRESSENTS Allergy (Unknown, Uncoded 06/01/23 15:23) I GO MANIC All anti-depressants Allergy (Unknown, Uncoded 06/01/23 15:23) manic, rash From GEODON Allergy (Unknown, Uncoded 06/01/23 15:23) LETHARGY From WELLBUTRIN Adverse Reaction (Unknown, Uncoded 06/01/23 15:23) AGITATION, MAVIS Medication List - Last Reconciled 06/01/23 by Kira Craven MD albuterol sulfate 90 mcg/actuation 2 inhalations inhalation Q6-8H PRN amlodipine 5 mg PO DAILY atorvastatin 20 mg PO DAILY benztropine 0.5 mg PO BID blood sugar diagnostic (FreeStyle Lite Strips) As directed check the BS QD cholestyramine (with sugar) 4 gram 4 grams PO BID ciprofloxacin HCl (Cipro) 500 mg PO BID 5 days clonazepam 0.5 mg PO TID PRN clotrimazole 1% 1 appl topical BID 4 weeks cyclobenzaprine 5 mg PO TID PRN darifenacin ER 7.5 mg PO DAILY gabapentin 300 mg PO BID 30 days lisinopril 30 mg PO DAILY loxapine succinate 5 mg PO BEDTIME 30 days loxapine succinate 10 mg PO BID meloxicam 15 mg PO DAILY 30 days memantine 10 mg PO BID miconazole nitrate 2% (Zeasorb AF) 1 appl topical BID mirabegron ER (Myrbetriq) 25 mg PO DAILY 90 days pioglitazone 15 mg PO DAILY propranolol 20 mg PO TID Tobacco use date assessed: 11/03/22 Dental Screening Dental Screen Date: 06/01/23 Did you have a dental visit in the last 12 months?: Yes Did you have a dental problem in the last 6 months where you did not have access to dental care?: No Was dental information given to patient?: Patient has dentist HPI DM HPI Details 63-year-old obese female with diabetes mellitus schizoaffective disorder bipolar type GERD hypercholesterolemia hypertension asthma coming in for follow-up last seen in March 2023. Review of the notes was seen by Gastroenterology May 20 diagnosis of post cholecystectomy syndrome workup was negative and diarrhea result.. Last blood work for cholesterol was done in February 2023. BP is better. [facility] Medical History (Updated 06/01/23 @ 15:48 by Kira Craven MD) Leg swelling Diabetic neuropathy Vaginal pain Cellulitis of right anterior lower leg Bruising Dissociative identity disorder Mild cognitive impairment Breast cancer screening by mammogram Back pain Cognitive impairment Hallucinations Richard Peripheral vascular disease Uterine prolapse GERD (gastroesophageal reflux disease) Polysubstance abuse Type 2 diabetes mellitus with hyperglycemia Asthma Fatty liver Obesity (BMI 30-39.9) Hypercholesterolemia Hypertension Chronic hepatitis C Diarrhea Dementia Surgical History H/O colonoscopy History of ectopic History of appendectomy History of tonsillectomy History of cholecystectomy Family History Father Diabetes Hypertension Mother Hypertension Diabetes CVD (cardiovascular disease) CAD (coronary artery disease) Maternal Aunt Myocardial infarction Cancer Maternal Uncle Myocardial infarction Social History Household Members: Family and None Housing: House Do you presently have visiting nurse or other home services: Yes Unable to assess alcohol history related to: Unknown Alcohol intake: never Patient Tobacco Use Status: Former Tobacco user Tobacco use type: Cigarette e-Cigarette/Vaping Use: Never Used Second Hand Smoke Exposure: No service: No Sexual orientation: Straight/Heterosexual Cognitive needs: No Hearing needs: No Vision needs: Yes Female Reproductive History Menstrual Age of Menarche: 12 Questionnaire PHQ-9 Over the last 2 weeks, how often have you been bothered by any of the following problems? 1. Little interest or pleasure in doing things: several days 2. Feeling down, depressed, or hopeless: several days 3. Trouble falling or staying asleep, or sleeping too much: several days 4. Feeling tired or having little energy: several days 5. Poor appetite or overeating: several days 6. Feeling bad about yourself - or that you are a failure or have let yourself or your family down: not at all 7. Trouble concentrating on things, such as reading the newspaper or watching television: not at all 8. Moving or speaking so slowly that other people could have noticed. Or the opposite - being so fidgety or restless that you have been moving around a lot more than usual: not at all 9. Thoughts that you would be better off or of hurting yourself in some way: not at all Total score: 5 Depression Screening Interpretation: Negative Source: Developed by Drs. Rolando Argueta, Pippa Frances, Lars Alvarado and colleagues, with an educational bharat from [employer]. Thrive Questionnaire Date Thrive assessed: 11/03/22 AUDIT C Alcohol Use Questionnaire (AUDIT-C) 1. How often do you have a drink containing alcohol?: Never 3. How often do you have six or more drinks on one occasion?: Never Total Score: 0 MARYANN-7 AMB Questionnaire MARYANN-7 Date MARYANN - 7 assessed: 11/03/22 Source: Developed by Drs. Rolando Argueta, Pippa Frances, Lars Alvarado and colleagues, with an educational bharat from [employer]. Physical exam (Primary Care) Vital Signs: Last Vital Signs Pulse 60 06/01/23 14:51 BP 144/94 H 06/01/23 14:51 Pulse Ox 98 06/01/23 14:51 Oxygen Delivery Method Room Air 06/01/23 14:51 BMI result Body Mass Index 38.5 Tobacco/Smoking Status: Tobacco use Status Tobacco use date assessed 11/03/22 06/01/23 14:52 Patient Tobacco Use Status Former Tobacco user 06/01/23 14:52 Tobacco use type Cigarette 06/01/23 14:52 e-Cigarette/Vaping Use Never Used 06/01/23 14:52 PHQ-9: PHQ-9 Score PHQ-9: Total score 5 06/01/23 15:29 Depression Screening Interpretation: Negative Thrive Assessment: Date of Thrive Assessment Date Thrive assessed 11/03/22 06/01/23 14:52 Const General: alert; No acute distress Eyes Conjunctivae: conjunctivae normal Resp Auscultation: clear to auscultation bilaterally Cardio Rate: regular rate Rhythm: regular rhythm GI Inspection: Yes normal to inspection Extrem General: Yes normal to inspection and No edema Assessment and Plan Assessment & Plan (1) Type 2 diabetes mellitus with hyperglycemia: Comment: Dr. Negro Code(s): E11.65 - Type 2 diabetes mellitus with hyperglycemia Qualifiers: Diabetes mellitus ocean transportation intermediary insulin use: without nursing home use Qualified Code(s): E11.65 - Type 2 diabetes mellitus with hyperglycemia Plan: Decrease the amount of carbohydrate intake, pasta, bread, rice and potatoes are all sugar and that is aside from all the sweet stuff, remember that fruits are good but they are Sweet also. Hemoglobin A1c goal of less than 6.5 patient is on pioglitazone 50 mg once a day. Hemoglobin A1c is very high. Patient wants to try Jardiance again. (2) Hypercholesterolemia: Code(s): E78.00 - Pure hypercholesterolemia, unspecified Plan: Avoid fried foods, chicken skin, eggs, butter margarine, pastries and meat. Be it pork or beef they have a lot of cholesterol LDL goal of less than 100 and triglyceride of less than 150 patient is on atorvastatin 20 mg once a day blood work done February 2020 (3) Hypertension: Code(s): I10 - Essential (primary) hypertension Qualifiers: Hypertension type: essential hypertension Qualified Code(s): I10 - Essential (primary) hypertension Plan: Continue with blood pressure medication. Decrease salt intake and exercise patient is taking amlodipine 5 mg once a day lisinopril 30 mg once a day and propranolol 20 mg 3 times a day. With leg swelling amlodipine is taken now and increasing lisinopril. Continue to monitor blood pressure (4) Obesity (BMI 30-39.9): Code(s): E66.9 - Obesity, unspecified Plan: Diet and exercise (5) GERD (gastroesophageal reflux disease): Code(s): K21.9 - Gastro-esophageal reflux disease without esophagitis Qualifiers: Esophagitis presence: without esophagitis Qualified Code(s): K21.9 - Gastro-esophageal reflux disease without esophagitis Plan: Avoid the foods that causes that usually spicy foods, tomato products, juices, coffee, soda and foods that your sensitive to. After eating do not lie down, allow 3-4 hours before in lie down. And keep the head of bed above 30 degrees to avoid the acid from going up. (6) Schizoaffective disorder, bipolar type: Comment: [facility] Code(s): F25.0 - Schizoaffective disorder, bipolar type Plan: continue with counselling and therapy once a month (7) Leg swelling: Code(s): M79.89 - Other specified soft tissue disorders Plan: Patient is presently on amlodipine and pioglitazone which can cause legs when will start with stopping amlodipine. Orders: Orders AMB Hemoglobin A1c Today E11.65 - Type 2 diabetes mellitus with hyperglycemia, F33.9 - Major depressive disorder, recurrent, unspecified Medications: New empagliflozin (Jardiance) PAtient wants to try again 10 mg PO DAILY 30 tabs 4RF E11.65 - Type 2 diabetes mellitus with hyperglycemia Changed From lisinopril 30 mg PO DAILY 90 tabs 0RF I10 - Essential (primary) hypertension To lisinopril 40 mg PO DAILY 30 days 30 tabs 8RF I10 - Essential (primary) hypertension Discontinued amlodipine Discontinued Reason: Duplicate 5 mg PO DAILY 90 tabs 1RF I10 - Essential (primary) hypertension Coding Level of Care Code Est Pt Level 4 (72443) Diagnoses Type 2 diabetes mellitus with hyperglycemia, without long-term current use of insulin E11.65 Diabetes mellitus ocean transportation intermediary insulin use: without ocean transportation intermediary use Hypercholesterolemia E78.00 Essential hypertension I10 Hypertension type: essential hypertension Obesity (BMI 30-39.9) E66.9 Gastroesophageal reflux disease without esophagitis K21.9 Esophagitis presence: without esophagitis Schizoaffective disorder, bipolar type F25.0 Leg swelling M79.89
[2023-06-01 15:35] VITALS: BP 130/80
== END 2023-06-01 15:52 | disposition home or self-care (01) ==
PROVIDERS: Visit Provider Internal Medicine
DX: I10 Essential (primary) hypertension (principal); K21.9 Gastro-esophageal reflux disease without esophagitis; F33.9 Major depressive disorder, recurrent, unspecified; F25.0 Schizoaffective disorder, bipolar type; E11.65 Type 2 diabetes mellitus with hyperglycemia; E78.00 Pure hypercholesterolemia, unspecified; E66.9 Obesity, unspecified; M79.89 Other specified soft tissue disorders
CPT/HCPCS: 83036; 99214

== ENCOUNTER 2023-08-05 14:24 | Outpatient (AMB) | payer OTHER, SELFPAY ==
[2023-08-05 14:26] VITALS: BP 115/56; PULSE 69; BMI 39.1
--- NOTE | 2023-08-05 14:26 | MHC.OFFVIS ---
Intake Vital Signs 08/05/23 14:26 Height 5 ft 1 in Weight 206 lb 12.697 oz BMI 39.1 BP 115/56 L Blood Pressure Location Lt brachial Position Sitting Pulse 69 Intake Visit Reasons: 3 month follow up Intake Note: Patient presents to in office visit today in follow up of diarrhea. CC: Patient reports that she began to have diarrhea again about a week ago or two weeks ago. She reports she is concerned about UTI again due to urinary urgency and burning sensation when urinating. Retail Receiving Clerk Required: No Accompanied by: Daughter Allergies haloperidol [HALOPERIDOL] Allergy (Intermediate, Verified 09/07/23 15:38) SWELLING carbamazepine [From Tegretol] Allergy (Mild, Verified 09/07/23 15:38) RASH, TREMORS lithium [[place]] Allergy (Mild, Verified 09/07/23 15:38) RASH, CRAWLING OUT OF SKIN olanzapine [From Zyprexa] Allergy (Mild, Verified 09/07/23 15:38) RICHARD quetiapine [From Seroquel] Allergy (Mild, Verified 09/07/23 15:38) SWELLING WHOLE BODY, RICHARD topiramate [From TOPAMAX] Allergy (Unknown, Verified 09/07/23 15:38) RICHARD, SI trazodone [TRAZODONE] Allergy (Unknown, Verified 09/07/23 15:38) SYNCOPE aripiprazole [From ABILIFY] Adverse Reaction (Severe, Verified 09/07/23 15:38) EXTREME SI amlodipine Adverse Reaction (Intermediate, Verified 09/07/23 15:38) leg swelling empagliflozin [From Jardiance] Adverse Reaction (Intermediate, Verified 09/07/23 15:38) facial rash metformin Adverse Reaction (Intermediate, Verified 09/07/23 15:38) Diarrhea pioglitazone Adverse Reaction (Intermediate, Verified 09/07/23 15:38) leg swelling lamotrigine [From Lamictal] Adverse Reaction (Mild, Verified 09/07/23 15:38) RICHARD modafinil [From Provigil] Adverse Reaction (Mild, Verified 09/07/23 15:38) RICHARD ALL ANTI DEPRESSENTS Allergy (Unknown, Uncoded 06/01/23 15:23) I GO MANIC All anti-depressants Allergy (Unknown, Uncoded 06/01/23 15:23) manic, rash From GEODON Allergy (Unknown, Uncoded 06/01/23 15:23) LETHARGY From WELLBUTRIN Adverse Reaction (Unknown, Uncoded 06/01/23 15:23) AGITATION, MAVIS Medication List - Last Reconciled 08/05/23 by ANDI Robles albuterol sulfate 90 mcg/actuation 2 inhalations inhalation Q6-8H PRN atorvastatin 20 mg PO DAILY benztropine 0.5 mg PO BID blood sugar diagnostic (FreeStyle Lite Strips) As directed check the BS QD blood-glucose meter (FreeStyle Lite Meter kit) As directed cholestyramine (with sugar) 4 gram 4 grams PO BID clonazepam 0.5 mg PO TID PRN clotrimazole 1% 1 appl topical BID 4 weeks cyclobenzaprine 5 mg PO TID PRN darifenacin ER 7.5 mg PO DAILY empagliflozin (Jardiance) 10 mg PO DAILY gabapentin 300 mg PO BID 30 days lisinopril 40 mg PO DAILY 30 days loxapine succinate 5 mg PO BEDTIME 30 days loxapine succinate 10 mg PO BID meloxicam 15 mg PO DAILY 90 days memantine 10 mg PO BID miconazole nitrate 2% (Zeasorb AF) 1 appl topical BID mirabegron ER (Myrbetriq) 25 mg PO DAILY 90 days pioglitazone 15 mg PO DAILY propranolol 20 mg PO TID HPI 3 month follow up HPI Details Assessment & Plan (1) Post-cholecystectomy syndrome: Code(s): K91.5 - Postcholecystectomy syndrome Plan: Her diarrhea seems to be now controlled. She finds the cholestyramine agrees with her well. She is having dysuria and I will send her to the lab to get a UA and treat if needed. ROV 3 mos (2) Dysuria: Code(s): R30.0 - Dysuria Orders: Orders UA CC w/rflx Micro + Cult 05/13/23 R30.0 - Dysuria LABS: ENTERED: 3-[address]: Kira Craven MD ORDERED: TONY SCHROEDER ES: Collection Da te: 05/13/23 Collection Time: 1511 Source: U rine, Clean Catch Test Result Flag Refere nce Si te Ur Color Yellow Ur Appear C loudy P H 5. 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 This was treated with a round of Cipro. TODAY'S VISIT Her diarrhea is not controlled because she has not been taking the cholestyramine. The circumstances surrounding why this is are unclear. She says I'd rather take a pill but I explain that the pills do not bind up the excess bile that irritates her system. With this she agrees to try the cholestyramine again. I am fearful that adding Carafate will be to constipated for her especially since she is on Mounjaro and I do not want to complicate her diabetes regimen by blocking absorption of other insulin mimetics. She also has an aspect of dementia that could be interfering with her care. Return office visit in 6 weeks [facility] Medical History Leg swelling Diabetic neuropathy Vaginal pain Cellulitis of right anterior lower leg Bruising Dissociative identity disorder Mild cognitive impairment Breast cancer screening by mammogram Back pain Cognitive impairment Hallucinations Richard Peripheral vascular disease Uterine prolapse GERD (gastroesophageal reflux disease) Polysubstance abuse Type 2 diabetes mellitus with hyperglycemia Asthma Fatty liver Obesity (BMI 30-39.9) Hypercholesterolemia Hypertension Chronic hepatitis C Diarrhea Dementia Surgical History H/O colonoscopy History of ectopic History of appendectomy History of tonsillectomy History of cholecystectomy Family History Father Diabetes Hypertension Mother Hypertension Diabetes CVD (cardiovascular disease) CAD (coronary artery disease) Maternal Aunt Myocardial infarction Cancer Maternal Uncle Myocardial infarction Social History Household Members: Family and None Housing: House Do you presently have visiting nurse or other home services: Yes Unable to assess alcohol history related to: Unknown Alcohol intake: never Comment: Non skid socks Patient Tobacco Use Status: Former Tobacco user Tobacco use type: Cigarette e-Cigarette/Vaping Use: Never Used Second Hand Smoke Exposure: No service: No Sexual orientation: Straight/Heterosexual Cognitive needs: No Hearing needs: No Vision needs: Yes Female Reproductive History Menstrual Age of Menarche: 12 Review of Systems Const Denies fatigue, Denies fever(s), Denies night sweats, Reports poor appetite and Denies weight loss Eyes Details: glasses Reports requires corrective lenses ENT Reports Normal hearing present, Denies dental pain, Denies dysphagia, Denies hearing loss, Denies mouth pain, Denies odynophagia, Denies throat swelling, Denies tongue swelling and Reports other (Dentition adequate) Card Reports no additional complaints Resp Reports no additional complaints GI Denies abdominal pain, Denies melena, Denies bloating, Denies hematochezia, Reports constipation, Denies GI cramping, Denies dysphagia, Denies excessive flatus, Denies early satiety, Reports heartburn, Reports diarrhea, Denies nausea, Denies odynophagia, Denies vomiting and Denies hematemesis Skin/Breast Denies pruritus, Denies lesions, Denies rash and Denies jaundice Neuro Reports Normal hearing present, Denies Abnormal speech present and Reports memory loss Psych Reports memory loss Endo Denies fatigue Aller/Immun Denies throat swelling and Denies tongue swelling Physical Exam Vital Signs: Last Vital Signs Pulse 69 08/05/23 14:26 BP 115/56 L 08/05/23 14:26 BMI result Body Mass Index 39.1 Const General: cooperative, no acute distress, well developed and well groomed Nutritional Appearance: well nourished and obese Orientation/consciousness: oriented to person, oriented to place and oriented to time Limitations: No language barrier and other limitations HEENT Head: Yes normocephalic and Yes atraumatic Eyes General: appearance normal, both eyes and all related structures Pupils: Equal, round and reactive pupils present Neck Neck: Yes normal visual inspection and Yes no lymphadenopathy Thyroid: Thyroid normal Resp Effort & Inspection: normal respiratory effort and able to speak in complete sentences Auscultation: clear to auscultation bilaterally Cardio Rate: regular rate Rhythm: regular rhythm Heart sounds: Normal, physiologic split S2 sound present Peripheral pulses: radial pulses present and posterior tibial pulses present GI Inspection: No distended, Yes Abdominal panniculus present and Yes obesity Palpation (GI): Soft to palpation, nontender, no guarding, not rigid and No hepatosplenomegaly present Percussion: Yes normal to percussion Auscultation: normal bowel sounds Rectal Exam - Female: deferred Skin General skin exam: no rashes or lesions noted, turgor normal, skin not dry, no jaundice, No spider nevi and no striae Rashes: no rashes Nails: normal Neuro General: oriented to person, oriented to place and oriented to time Cranial nerves: Yes Equal, round and reactive pupils present and Yes Normal hearing present Speech: No Abnormal speech present Extrem General: Yes normal to inspection, No clubbing, No cyanosis and No edema Psych Appearance: grossly normal and well kempt Mental Status: mental status grossly normal Speech and movement: Normal speech and movement present Affect: normal affect Attitude: cooperative Thought process: Normal thought process present and not confabulating Thought content: Normal thought content present Insight: Limited insight present (Psych) and Poor insight present (Psych) Judgement: Limited judgement present (Psych) and Poor judgement present (Psych) Assessment & Plan Assessment & Plan (1) Post-cholecystectomy syndrome: Code(s): K91.5 - Postcholecystectomy syndrome (2) UTI (urinary tract infection): Code(s): N39.0 - Urinary tract infection, site not specified (3) GERD (gastroesophageal reflux disease): Code(s): K21.9 - Gastro-esophageal reflux disease without esophagitis Qualifiers: Esophagitis presence: without esophagitis Qualified Code(s): K21.9 - Gastro-esophageal reflux disease without esophagitis Plan Her diarrhea is not controlled because she has not been taking the cholestyramine. The circumstances surrounding why this is are unclear. She says I'd rather take a pill but I explain that the pills do not bind up the excess bile that irritates her system. I have written a letter trying to instruct all of her providers to not allow her to take [id number] loperamide because this is promoting a cycle of diarrhea and constipation in an uncontrolled manner. This also does not help with the irritation of the bile. With this she agrees to try the cholestyramine again. I am fearful that adding Carafate will be to constipated for her especially since she is on Mounjaro and I do not want to complicate her diabetes regimen by blocking absorption of other insulin mimetics. She also has an aspect of dementia that could be interfering with her care. Return office visit in 6 weeks Medications: Changed From cholestyramine (with sugar) 4 gram administer w/meal; avoid other meds within 1hr before or 4-6hr after dose 4 grams PO BID K91.5 - Postcholecystectomy syndrome To cholestyramine (with sugar) 4 gram administer w/meal; avoid other meds within 1hr before or 4-6hr after dose 4 grams PO BID 378 grams 6RF K91.5 - Postcholecystectomy syndrome Patient Instructions: Mouna Najera To her caretakers: She has post cholecystectomy syndrome and needs to be taking cholestyramine twice a day to control this.? Please under any circumstances, DO NOT ALLOW [id number] DIARRHEAL MEDICATIONS IN HER REGIMEN.? This just promotes a cycle of diarrhea and then severe constipation.? It also does not address the underlying problem of over bile production that is inherent in this syndrome.? If there are any questions feel free to call our office.? The phone number is [phone].? LEBRON Lloyd [facility] Gastroenterology Department Coding Level of Care Code Est Pt Level 3 (25695) Diagnoses Post-cholecystectomy syndrome K91.5 UTI (urinary tract infection) N39.0 Gastroesophageal reflux disease without esophagitis K21.9 Esophagitis presence: without esophagitis
== END 2023-08-05 15:28 | disposition home or self-care (01) ==
PROVIDERS: PCP Internal Medicine; Visit Provider Nurse Practitioner
DX: K91.5 Postcholecystectomy syndrome (principal); N39.0 Urinary tract infection, site not specified; K21.9 Gastro-esophageal reflux disease without esophagitis
CPT/HCPCS: 99213

== ENCOUNTER → 2023-08-05 14:24 | Outpatient (BNVA) | payer OTHER, SELFPAY | PROVIDERS: PCP Internal Medicine; Visit Provider Nurse Practitioner | DX: K91.5 Postcholecystectomy syndrome (principal); K21.9 Gastro-esophageal reflux disease without esophagitis; N39.0 Urinary tract infection, site not specified | CPT/HCPCS: 99212 ==

== ENCOUNTER 2023-09-07 15:30 | Outpatient (AMB) | payer OTHER, SELFPAY ==
[2023-09-07 15:38] VITALS: BP 160/100; PULSE 61; O2SAT 91; BMI 39.1
--- NOTE | 2023-09-07 15:38 | A.OFFPC_ITS ---
Vital Signs 09/07/23 15:38 09/07/23 16:12 Height 5 ft 1 in Weight 207 lb 2 oz BMI 39.1 BP 160/100 H 136/80 Blood Pressure Location Lt brachial Lt brachial Position Sitting Sitting Pulse 61 Pulse Source Pulse Oximeter Pulse Oximetry (%) 91 L Oxygen Delivery Method Room Air Intake Visit Reasons: 3 month f/u Inserter Promotional Item Required: No Electrician'S Assistant: Present Accompanied by: Daughter Allergies haloperidol [HALOPERIDOL] Allergy (Intermediate, Verified 09/07/23 15:38) SWELLING carbamazepine [From Tegretol] Allergy (Mild, Verified 09/07/23 15:38) RASH, TREMORS lithium [[place]] Allergy (Mild, Verified 09/07/23 15:38) RASH, CRAWLING OUT OF SKIN olanzapine [From Zyprexa] Allergy (Mild, Verified 09/07/23 15:38) RICHARD quetiapine [From Seroquel] Allergy (Mild, Verified 09/07/23 15:38) SWELLING WHOLE BODY, RICHARD topiramate [From TOPAMAX] Allergy (Unknown, Verified 09/07/23 15:38) RICHARD, SI trazodone [TRAZODONE] Allergy (Unknown, Verified 09/07/23 15:38) SYNCOPE aripiprazole [From ABILIFY] Adverse Reaction (Severe, Verified 09/07/23 15:38) EXTREME SI amlodipine Adverse Reaction (Intermediate, Verified 09/07/23 15:38) leg swelling empagliflozin [From Jardiance] Adverse Reaction (Intermediate, Verified 09/07/23 15:38) facial rash metformin Adverse Reaction (Intermediate, Verified 09/07/23 15:38) Diarrhea pioglitazone Adverse Reaction (Intermediate, Verified 09/07/23 15:38) leg swelling lamotrigine [From Lamictal] Adverse Reaction (Mild, Verified 09/07/23 15:38) RICHARD modafinil [From Provigil] Adverse Reaction (Mild, Verified 09/07/23 15:38) RICHARD ALL ANTI DEPRESSENTS Allergy (Unknown, Uncoded 06/01/23 15:23) I GO MANIC All anti-depressants Allergy (Unknown, Uncoded 06/01/23 15:23) manic, rash From GEODON Allergy (Unknown, Uncoded 06/01/23 15:23) LETHARGY From WELLBUTRIN Adverse Reaction (Unknown, Uncoded 06/01/23 15:23) AGITATION, MAVIS Medication List - Last Reconciled 09/07/23 by Kira Craven MD albuterol sulfate 90 mcg/actuation 2 inhalations inhalation Q6-8H PRN atorvastatin 20 mg PO DAILY benztropine 0.5 mg PO BID blood sugar diagnostic (FreeStyle Lite Strips) As directed check the BS QD blood-glucose meter (FreeStyle Lite Meter kit) As directed cholestyramine (with sugar) 4 gram 4 grams PO BID clonazepam 0.5 mg PO TID PRN clotrimazole 1% 1 appl topical BID 4 weeks cyclobenzaprine 5 mg PO TID PRN darifenacin ER 7.5 mg PO DAILY empagliflozin (Jardiance) 10 mg PO DAILY gabapentin 300 mg PO BID 30 days lisinopril 40 mg PO DAILY 30 days loxapine succinate 5 mg PO BEDTIME 30 days loxapine succinate 10 mg PO BID meloxicam 15 mg PO DAILY 90 days memantine 10 mg PO BID miconazole nitrate 2% (Zeasorb AF) 1 appl topical BID mirabegron ER (Myrbetriq) 25 mg PO DAILY 90 days pioglitazone 15 mg PO DAILY propranolol 20 mg PO TID tirzepatide (Mounjaro) 2.5 mg (0.5 mL) subcut QWEEK 4 weeks Tobacco use date assessed: 11/03/22 Dental Screening Dental Screen Date: 09/07/23 Did you have a dental visit in the last 12 months?: Yes Did you have a dental problem in the last 6 months where you did not have access to dental care?: No Was dental information given to patient?: Patient has dentist HPI 3 month f/u HPI Details 63-year-old obese morbid female with unc ontrolled diabetes mellitus hypertension hypercholesterolemia GERD schizoaffective disorder bipolar type coming in for follow-up. Last seen in May 2023. Patient is here for follow-up. Review of the notes July was last seen by the mandrel puller for the diarrhea history of post cholecystectomy syndrome and was placed on cholestyramine. has not been using - states diet improved and no having dairrh ea- eat low fat diet PFSH Medical History Leg swelling Diabetic neuropathy Vaginal pain Cellulitis of right anterior lower leg Bruising Dissociative identity disorder Mild cognitive impairment Breast cancer screening by mammogram Back pain Cognitive impairment Hallucinations Richard Peripheral vascular disease Uterine prolapse GERD (gastroesophageal reflux disease) Polysubstance abuse Type 2 diabetes mellitus with hyperglycemia Asthma Fatty liver Obesity (BMI 30-39.9) Hypercholesterolemia Hypertension Chronic hepatitis C Diarrhea Dementia Surgical History H/O colonoscopy History of ectopic History of appendectomy History of tonsillectomy History of cholecystectomy Family History Father Diabetes Hypertension Mother Hypertension Diabetes CVD (cardiovascular disease) CAD (coronary artery disease) Maternal Aunt Myocardial infarction Cancer Maternal Uncle Myocardial infarction Social History Household Members: Family and None Housing: House Do you presently have visiting nurse or other home services: Yes Unable to assess alcohol history related to: Unknown Alcohol intake: never Comment: Non skid socks Patient Tobacco Use Status: Former Tobacco user Tobacco use type: Cigarette e-Cigarette/Vaping Use: Never Used Second Hand Smoke Exposure: No service: No Sexual orientation: Straight/Heterosexual Cognitive needs: No Hearing needs: No Vision needs: Yes Female Reproductive History Menstrual Age of Menarche: 12 Questionnaire Thrive Questionnaire Date Thrive assessed: 11/03/22 MARYANN-7 AMB Questionnaire MARYANN-7 Date MARYANN - 7 assessed: 11/03/22 Source: Developed by Drs. Rolando Argueta, Pippa Frances, Lars Alvarado and colleagues, with an educational bharat from [employer]. Physical exam (Primary Care) Vital Signs: Last Vital Signs Pulse 61 09/07/23 15:38 BP 160/100 H 09/07/23 15:38 Pulse Ox 91 L 09/07/23 15:38 Oxygen Delivery Method Room Air 09/07/23 15:38 BMI result Body Mass Index 39.1 Tobacco/Smoking Status: Tobacco use Status Tobacco use date assessed 11/03/22 09/07/23 15:42 Patient Tobacco Use Status Former Tobacco user 09/07/23 15:42 Tobacco use type Cigarette 09/07/23 15:42 e-Cigarette/Vaping Use Never Used 09/07/23 15:42 Thrive Assessment: Date of Thrive Assessment Date Thrive assessed 11/03/22 09/07/23 15:42 Const General: alert; No acute distress Eyes Conjunctivae: conjunctivae normal Resp Auscultation: clear to auscultation bilaterally Cardio Rate: regular rate Rhythm: regular rhythm GI Inspection: Yes normal to inspection Extrem General: Yes normal to inspection and No edema Results AMB Hemoglobin A1c AMB Hemoglobin A1c 11.1 % Last Edit by Shirley Monroe on 09/07/23 15:53 Results Reviewed Results Reviewed: Laboratory Last Values Hgb A1c (Clinic) 11.1 % (4.0-6.0) H 09/07/23 15:41 Assessment and Plan Assessment & Plan (1) Type 2 diabetes mellitus with hyperglycemia: Comment: Dr. Negro Code(s): E11.65 - Type 2 diabetes mellitus with hyperglycemia Qualifiers: Diabetes mellitus vermin exterminator insulin use: without [facility] use Qualified Code(s): E11.65 - Type 2 diabetes mellitus with hyperglycemia Plan: Decrease the amount of carbohydrate intake, pasta, bread, rice and potatoes are all sugar and that is aside from all the sweet stuff, remember that fruits are good but they are Sweet also. Hemoglobin A1c goal of less than 6.5 patient is on pioglitazone 15 mg once a day Jardiance 10 mg once a day (2) Hypertension: Code(s): I10 - Essential (primary) hypertension Qualifiers: Hypertension type: essential hypertension Qualified Code(s): I10 - Essential (primary) hypertension Plan: Continue with blood pressure medication. Decrease salt intake and exercise on lisinopril 40 mg once a day and propranolol 20 mg 3 times a day (3) Hypercholesterolemia: Code(s): E78.00 - Pure hypercholesterolemia, unspecified Plan: Avoid fried foods, chicken skin, eggs, butter margarine, pastries and meat. Be it pork or beef they have a lot of cholesterol LDL goal of less than 100 and triglyceride of less than 150 patient on atorvastatin 20 mg once a day (4) Schizoaffective disorder, bipolar type: Comment: [facility] Code(s): F25.0 - Schizoaffective disorder, bipolar type Plan: Continue counseling and therapy (5) Post-cholecystectomy syndrome: Code(s): K91.5 - Postcholecystectomy syndrome Plan: Patient has seen gastroenterology placed cholestyramine. Advised holding antidiarrheals Orders: Orders AMB Hemoglobin A1c Today Z13.9 - Encounter for screening, unspecified Medications: New tirzepatide (Mounjaro) 2.5 mg (0.5 mL) subcut QWEEK 4 weeks 2 mL 2RF E11.65 - Type 2 diabetes mellitus with hyperglycemia Refilled cyclobenzaprine 5 mg PO TID PRN 60 tabs 2RF muscle spasm E11.65 - Type 2 diabetes mellitus with hyperglycemia Coding Level of Care Code Est Pt Level 4 (91651) Diagnoses Type 2 diabetes mellitus with hyperglycemia, without long-term current use of insulin E11.65 Diabetes mellitus vermin exterminator insulin use: without vermin exterminator use Essential hypertension I10 Hypertension type: essential hypertension Hypercholesterolemia E78.00 Schizoaffective disorder, bipolar type F25.0 Post-cholecystectomy syndrome K91.5
[2023-09-07 16:12] VITALS: BP 136/80
== END 2023-09-07 16:30 | disposition home or self-care (01) ==
PROVIDERS: PCP Internal Medicine; Visit Provider Internal Medicine
DX: E11.65 Type 2 diabetes mellitus with hyperglycemia (principal); I10 Essential (primary) hypertension; E78.00 Pure hypercholesterolemia, unspecified; F25.0 Schizoaffective disorder, bipolar type; K91.5 Postcholecystectomy syndrome
CPT/HCPCS: 83036; 99214

== ENCOUNTER 2023-11-03 08:50 | Outpatient (REF) | payer OTHER, SELFPAY ==
[2023-11-03 09:11] LABS: MANUAL DIFF FLAG NO
[2023-11-03 09:46] LABS: Basophils Absolute Auto 0.1 X10*3/uL (0.0-0.2); Eosinophils Absolute Auto 0.3 X10*3/uL (0.0-0.4); Eosinophils Percent Auto 3.8 % (0-4); Hemoglobin 14.7 g/dl (12.0-16.0); Imm Gran Abs Auto 0.02 X10*3/uL (0.00-0.03); Imm Gran Pct Auto 0.3 % (0.0-0.4); Lymphocytes Absolute Auto 2.6 X10*3/uL (1.2-4.9); Lymphocytes Percent Auto 37.6 % (20-40); Mean Corpuscular Hemoglobin 28.2 pg (27.0-33.0); Mean Corpuscular Volume 88.1 fL (80.0-98.0); Mean Platelet Volume 10.1 fL (9.4-12.3); Monocytes Absolute Auto 0.5 X10*3/uL (0.1-1.2); Neutrophils Absolute Auto 3.4 x10*3/uL (2.0-8.3); Neutrophils Percent Auto 50.3 % (45-73); Platelet Count 165 X10*3/uL (160-400); Red Blood Count 5.22 X10*6/uL (4.20-5.50); Red Cell Distribution Width 14.6 % (11.0-16.0); White Blood Count 6.8 X10*3/uL (4.8-10.8)
[2023-11-03 10:39] LABS: Alanine Aminotransferase 30 U/L (0-31); Albumin Level 3.9 g/dL (3.5-5.0); Alkaline Phosphatase 130 U/L (39-117); Anion Gap 11 (12-20); Aspartate Amino Transferase 27 U/L (5-31); Bilirubin Direct 0.3 mg/dL (0.0-0.5); Bilirubin Total 0.6 mg/dL (0.0-1.0); Blood Urea Nitrogen 19 mg/dL (9-16); Calcium 9.8 mg/dL (8.4-10.2); Carbon Dioxide 26 mmol/L (22-29); Chloride 109 mmol/L (96-108); Estimated Glomerular Filt Rate 56; Glucose Random 119 mg/dL (60-115); Potassium 4.7 mmol/L (3.3-5.1); Sodium 141 mmol/L (135-145); Total Protein 8.2 g/dL (6.5-8.0)
[2023-11-03 10:46] LABS: Thyroid Stimulating Hormone 0.84 uIU/mL (0.32-4.0); Vitamin D 25-OH Total 22.7 ng/mL (>30)
== END 2023-11-03 08:51 | disposition home or self-care (01) ==
LOC: HO.LAB 08:50
PROVIDERS: PCP Internal Medicine; Visit Provider Psychiatry & Neurology Psychiatry
DX: Z79.899 Other long term (current) drug therapy (principal)
CPT/HCPCS: 36415; 80053; 82248; 82306; 84443; 85025

== ENCOUNTER 2023-12-14 15:42 | Outpatient (AMB) | payer OTHER, SELFPAY ==
[2023-12-14 15:43] VITALS: BP 146/70; PULSE 66; O2SAT 95; BMI 38.4
--- NOTE | 2023-12-14 15:43 | MHC.PC.OV ---
Vital Signs 12/14/23 15:43 12/14/23 15:59 Height 5 ft 1 in Weight 203 lb BMI 38.4 BP 146/70 H 142/80 H Blood Pressure Location Lt brachial Lt brachial Position Sitting Sitting Pulse 66 Pulse Source Pulse Oximeter Pulse Oximetry (%) 95 Oxygen Delivery Method Room Air Intake Visit Reasons: DM Intake Note: Patient is here to follow up on DM Transportation Dispatcher Required: No Allergies haloperidol [HALOPERIDOL] Allergy (Intermediate, Verified 12/14/23 15:44) SWELLING carbamazepine [From Tegretol] Allergy (Mild, Verified 12/14/23 15:44) RASH, TREMORS lithium [[place]] Allergy (Mild, Verified 12/14/23 15:44) RASH, CRAWLING OUT OF SKIN olanzapine [From Zyprexa] Allergy (Mild, Verified 12/14/23 15:44) RICHARD quetiapine [From Seroquel] Allergy (Mild, Verified 12/14/23 15:44) SWELLING WHOLE BODY, RICHARD topiramate [From TOPAMAX] Allergy (Unknown, Verified 12/14/23 15:44) RICHARD, SI trazodone [TRAZODONE] Allergy (Unknown, Verified 12/14/23 15:44) SYNCOPE aripiprazole [From ABILIFY] Adverse Reaction (Severe, Verified 12/14/23 15:44) EXTREME SI amlodipine Adverse Reaction (Intermediate, Verified 12/14/23 15:44) leg swelling empagliflozin [From Jardiance] Adverse Reaction (Intermediate, Verified 12/14/23 15:44) facial rash metformin Adverse Reaction (Intermediate, Verified 12/14/23 15:44) Diarrhea pioglitazone Adverse Reaction (Intermediate, Verified 12/14/23 15:44) leg swelling lamotrigine [From Lamictal] Adverse Reaction (Mild, Verified 12/14/23 15:44) RICHARD modafinil [From Provigil] Adverse Reaction (Mild, Verified 12/14/23 15:44) RICHARD ALL ANTI DEPRESSENTS Allergy (Unknown, Uncoded 12/14/23 15:44) I GO MANIC All anti-depressants Allergy (Unknown, Uncoded 12/14/23 15:44) manic, rash From GEODON Allergy (Unknown, Uncoded 12/14/23 15:44) LETHARGY From WELLBUTRIN Adverse Reaction (Unknown, Uncoded 12/14/23 15:44) AGITATION, MAVIS Tobacco use date assessed: 12/14/23 Dental Screening Dental Screen Date: 12/14/23 HPI DM HPI Details 63-year-old obese female with uncontrolled diabetes mellitus hypertension hypercholesterolemia schizoaffective disorder coming in for follow-up. Last seen in August 2023. Patient's colonoscopy last done in October 2016, up-to-date with mammogram. patient continue to have diarrhea - seen GI given prevalite but declined to take. dicsussed about low fat diet [facility] Medical History Leg swelling Diabetic neuropathy Vaginal pain Cellulitis of right anterior lower leg Bruising Dissociative identity disorder Mild cognitive impairment Breast cancer screening by mammogram Back pain Cognitive impairment Hallucinations Richard Peripheral vascular disease Uterine prolapse GERD (gastroesophageal reflux disease) Polysubstance abuse Type 2 diabetes mellitus with hyperglycemia Asthma Fatty liver Obesity (BMI 30-39.9) Hypercholesterolemia Hypertension Chronic hepatitis C Diarrhea Dementia Surgical History H/O colonoscopy History of ectopic History of appendectomy History of tonsillectomy History of cholecystectomy Family History Father Diabetes Hypertension Mother Hypertension Diabetes CVD (cardiovascular disease) CAD (coronary artery disease) Maternal Aunt Myocardial infarction Cancer Maternal Uncle Myocardial infarction Social History Household Members: Family and None Housing: House Do you presently have visiting nurse or other home services: Yes Unable to assess alcohol history related to: Unknown Alcohol intake: never Comment: Non skid socks Patient Tobacco Use Status: Former Tobacco user Tobacco use type: Cigarette e-Cigarette/Vaping Use: Never Used Second Hand Smoke Exposure: No service: No Sexual orientation: Straight/Heterosexual Cognitive needs: No Hearing needs: No Vision needs: Yes Female Reproductive History Menstrual Age of Menarche: 12 Questionnaire Thrive Questionnaire Date Thrive assessed: 12/14/23 AUDIT C Alcohol Use Questionnaire (AUDIT-C) 1. How often do you have a drink containing alcohol?: Never 3. How often do you have six or more drinks on one occasion?: Never Total Score: 0 MARYANN-7 AMB Questionnaire MARYANN-7 Date MARYANN - 7 assessed: 12/14/23 Source: Developed by Drs. Rolando Argueta, Pippa Frances, Lars Alvarado and colleagues, with an educational bharat from [employer]. Physical exam (Primary Care) Vital Signs: Last Vital Signs Pulse 66 12/14/23 15:43 BP 142/80 H 12/14/23 15:59 Pulse Ox 95 12/14/23 15:43 Oxygen Delivery Method Room Air 12/14/23 15:43 BMI result Body Mass Index 38.4 Tobacco/Smoking Status: Tobacco use Status Tobacco use date assessed 12/14/23 12/14/23 15:44 Patient Tobacco Use Status Former Tobacco user 12/14/23 15:44 Tobacco use type Cigarette 12/14/23 15:44 e-Cigarette/Vaping Use Never Used 12/14/23 15:44 Thrive Assessment: Date of Thrive Assessment Date Thrive assessed 12/14/23 12/14/23 15:44 Const General: alert; No acute distress Eyes Conjunctivae: conjunctivae normal Resp Auscultation: clear to auscultation bilaterally Cardio Rate: regular rate Rhythm: regular rhythm GI Inspection: Yes normal to inspection Extrem General: Yes normal to inspection and No edema Results AMB Hemoglobin A1c AMB Hemoglobin A1c 7.0 % Last Edit by BEN Marie on 12/14/23 15:56 Results Reviewed Results Reviewed: Laboratory Last Values Hgb A1c (Clinic) 7.0 % (4.0-6.0) H 12/14/23 09:12 Assessment and Plan Assessment & Plan (1) Obesity (BMI 30-39.9): Code(s): E66.9 - Obesity, unspecified Plan: Continue with diet and exercise (2) Type 2 diabetes mellitus with hyperglycemia: Comment: Dr. Negro Code(s): E11.65 - Type 2 diabetes mellitus with hyperglycemia Qualifiers: Diabetes mellitus predatory animal exterminator insulin use: without predatory animal exterminator use Qualified Code(s): E11.65 - Type 2 diabetes mellitus with hyperglycemia Plan: Decrease the amount of carbohydrate intake, pasta, bread, rice and potatoes are all sugar and that is aside from all the sweet stuff, remember that fruits are good but they are Sweet also. Hemoglobin A1c goal of less than 6.5. Patient is on Jardiance 10 mg once a day pioglitazone 15 mg once a day and Mounjaro Mounjaro does. (3) GERD (gastroesophageal reflux disease): Code(s): K21.9 - Gastro-esophageal reflux disease without esophagitis Qualifiers: Esophagitis presence: without esophagitis Qualified Code(s): K21.9 - Gastro-esophageal reflux disease without esophagitis Plan: Avoid the foods that causes that usually spicy foods, tomato products, juices, coffee, soda and foods that your sensitive to. After eating do not lie down, allow 3-4 hours before in lie down. And keep the head of bed above 30 degrees to avoid the acid from going up. (4) Hypertension: Code(s): I10 - Essential (primary) hypertension Qualifiers: Hypertension type: essential hypertension Qualified Code(s): I10 - Essential (primary) hypertension Plan: Continue with blood pressure medication. Decrease salt intake and exercise patient takes propranolol 20 mg 3 times a day lisinopril 40 mg once a day with blood pressure still elevated add hydrochlorothiazide 12.5 mg once a day (5) Hypercholesterolemia: Code(s): E78.00 - Pure hypercholesterolemia, unspecified Plan: Avoid fried foods, chicken skin, eggs, butter margarine, pastries and meat. Be it pork or beef they have a lot of cholesterol LDL goal of less than 100 and triglyceride of less than 150. Last blood work was done in February 2023 (6) Asthma, persistent controlled: Code(s): J45.998 - Other asthma Plan: Continue with the inhalers (7) Schizoaffective disorder, bipolar type: Comment: [facility] Code(s): F25.0 - Schizoaffective disorder, bipolar type Plan: Continue with counseling and therapy Orders: Orders AMB Hemoglobin A1c Today E11.65 - Type 2 diabetes mellitus with hyperglycemia Medications: New hydrochlorothiazide 12.5 mg PO DAILY 90 tabs 2RF I10 - Essential (primary) hypertension Changed From tirzepatide (Mounjaro) 2.5 mg (0.5 mL) subcut QWEEK 4 weeks 2 mL 2RF E11.65 - Type 2 diabetes mellitus with hyperglycemia To tirzepatide 5 mg (0.5 mL) subcut QWEEK 2 mL 2RF 4 weeks E11.65 - Type 2 diabetes mellitus with hyperglycemia Coding Level of Care Code Est Pt Level 4 (71590) Diagnoses Obesity (BMI 30-39.9) E66.9 Type 2 diabetes mellitus with hyperglycemia, without long-term current use of insulin E11.65 Diabetes mellitus predatory animal exterminator insulin use: without [facility] use Gastroesophageal reflux disease without esophagitis K21.9 Esophagitis presence: without esophagitis Essential hypertension I10 Hypertension type: essential hypertension Hypercholesterolemia E78.00 Asthma, persistent controlled J45.998 Schizoaffective disorder, bipolar type F25.0
[2023-12-14 15:59] VITALS: BP 142/80
== END 2023-12-14 16:13 | disposition home or self-care (01) ==
PROVIDERS: PCP Internal Medicine; Visit Provider Internal Medicine
DX: E11.65 Type 2 diabetes mellitus with hyperglycemia (principal); F25.0 Schizoaffective disorder, bipolar type; E66.9 Obesity, unspecified; Z68.38 Body mass index [BMI] 38.0-38.9, adult; K21.9 Gastro-esophageal reflux disease without esophagitis; I10 Essential (primary) hypertension; E78.00 Pure hypercholesterolemia, unspecified; J45.998 Other asthma
CPT/HCPCS: 83036; 99214

== ENCOUNTER 2024-01-27 11:11 | Inpatient (IN) | payer OTHER, SELFPAY ==
[2024-01-27 11:16] VITALS: BP 200/96; PULSE 74; RESP 19; TEMP 36.6; O2SAT 98; BMI 37.1
--- NOTE | 2024-01-27 11:20 | ECG_ITS ---
Test Reason : DIZZINESS Blood Pressure : / mmHG Vent. Rate : 066 BPM Atrial Rate : 066 BPM P-R Int : 222 ms QRS Dur : 116 ms QT Int : 432 ms P-R-T Axes : 039 -37 012 degrees QTc Int : 452 ms Sinus rhythm with 1st degree A-V block Left axis deviation Septal infarct , age undetermined Abnormal ECG When compared with ECG of 10-MAR-2023 13:15, Septal infarct is now Present Referred By: Terrell Boyce Electronically Signed By:Markus Herrera
--- NOTE | 2024-01-27 11:23 | ED.GENADULT ---
HPI - General Adult General Chief complaint: Psychiatric Symptoms Stated complaint: Psych eval, high BP, rash on forearms Time Seen by Provider: 01/27/24 11:39 Source: patient and family (daughter) Mode of arrival: ambulatory Limitations: no limitations History of Present Illness HPI narrative: Patient is a 63-year-old female with history of bipolar 1 disorder, dissociated identity disorder, mild cognitive impairment, hallucinations, kailash, PVD, GERD, T2 DM, asthma, fatty liver, HTN, chronic diarrhea, dementia presenting to the emergency department with daughter who reports that patient was treated with a course of prednisone for 5 days from 01/06 to 01/11. Patient and daughter report that since that time patient has had increased kailash, auditory hallucinations, suicidal thoughts for the past 2-3 weeks. Daughter states that patient has a nurse that comes to administer her medications, and patient states that she did take her BP medication today. Patient also reports that she woke with a pruritic rash to her forearms today. Complains of generalized abdominal pain without nausea, vomiting, or constipation. Reports some diarrhea which daughter states is chronic. MD complaint: kailash, hallucinations, rash Onset (ago): week(s) Treatments prior to arrival: none Related Data Home Medications ?Medication ?Instructions ?Recorded ?Confirmed clonazepam 0.5 mg tablet 0.5 mg PO TID anxiety 03/09/23 01/30/24 propranolol 20 mg tablet 20 mg PO TID 03/09/23 01/30/24 darifenacin 7.5 mg tablet,extended 7.5 mg PO DAILY 03/10/23 01/30/24 release 24 hr benztropine 0.5 mg tablet 0.5 mg PO BID 03/11/23 01/30/24 loxapine succinate 10 mg capsule 10 mg PO BID 04/22/23 01/30/24 clonazepam 0.5 mg tablet 0.5 mg PO DAILY PRN Anxiety 01/27/24 01/27/24 fluticasone propionate 110 1 puff inhalation BID 01/27/24 01/30/24 mcg/actuation HFA aerosol inhaler mirabegron 25 mg tablet,extended 25 mg PO BEDTIME 01/27/24 01/30/24 release 24 hr (Myrbetriq) hydrochlorothiazide 12.5 mg capsule 12.5 mg PO DAILY 01/30/24 01/30/24 Previous Rx's ?Medication ?Instructions ?Recorded loxapine succinate 5 mg capsule 5 mg PO BEDTIME 30 days #30 caps 03/16/23 albuterol sulfate 90 mcg/actuation 2 inh inhalation Q6-8H PRN 03/24/23 aerosol inhaler shortness of breath or wheezing #8.5 grams miconazole nitrate 2 % topical 1 appl topical BID #85 grams 03/24/23 powder (Zeasorb AF) lisinopril 40 mg tablet 40 mg PO DAILY 30 days #30 tabs 06/01/23 blood-glucose meter (FreeStyle #1 ea 06/07/23 Lite Meter kit) empagliflozin 10 mg tablet 10 mg PO DAILY #30 tabs 11/12/23 (Jardiance) pioglitazone 15 mg tablet 15 mg PO DAILY #90 tabs 11/12/23 meloxicam 15 mg tablet 15 mg PO DAILY 90 days #90 tabs 12/12/23 atorvastatin 20 mg tablet 20 mg PO DAILY #90 tabs 12/14/23 tirzepatide 5 mg/0.5 mL 5 mg (0.5 mL) subcut QWEEK 4 weeks 12/14/23 subcutaneous pen injector #2 mL cyclobenzaprine 5 mg tablet 5 mg PO TID PRN muscle spasm #60 12/29/23 tabs memantine 10 mg tablet 10 mg PO BID 90 days #180 tabs 12/30/23 blood sugar diagnostic (FreeStyle #100 ea 01/25/24 Lite Strips) gabapentin 300 mg capsule 300 mg PO BID 30 days #180 caps 01/25/24 Depends #1 ea 01/26/24 blood pressure monitor (Blood #1 ea 01/28/24 Pressure Kit) Allergies Allergy/AdvReac Type Severity Reaction Status Date / Time haloperidol [HALOPERIDOL] Allergy Intermediate SWELLING Verified 01/27/24 11:16 carbamazepine [From Tegretol] Allergy Mild RASH, Verified 01/27/24 11:16 TREMORS lithium [[place]] Allergy Mild RASH, Verified 01/27/24 11:16 CRAWLING OUT OF SKIN olanzapine [From Zyprexa] Allergy Mild KAILASH Verified 01/27/24 11:16 quetiapine [From Seroquel] Allergy Mild SWELLING Verified 01/27/24 11:16 WHOLE BODY, KAILASH topiramate [From TOPAMAX] Allergy Unknown KAILASH, SI Verified 01/27/24 11:16 trazodone [TRAZODONE] Allergy Unknown SYNCOPE Verified 01/27/24 11:16 aripiprazole [From ABILIFY] AdvReac Severe EXTREME SI Verified 01/27/24 11:16 amlodipine AdvReac Intermediate leg Verified 01/27/24 11:16 swelling empagliflozin AdvReac Intermediate facial rash Verified 01/27/24 11:16 [From Jardiance] metformin AdvReac Intermediate Diarrhea Verified 01/27/24 11:16 pioglitazone AdvReac Intermediate leg Verified 01/27/24 11:16 swelling lamotrigine [From Lamictal] AdvReac Mild KAILASH Verified 01/27/24 11:16 modafinil [From Provigil] AdvReac Mild KAILASH Verified 01/27/24 11:16 ALL ANTI DEPRESSENTS Allergy Unknown I GO Uncoded 01/27/24 11:16 MANIC All anti-depressants Allergy Unknown manic, rash Uncoded 01/27/24 11:16 From GEODON Allergy Unknown LETHARGY Uncoded 01/27/24 11:16 From WELLBUTRIN AdvReac Unknown AGITATION, Uncoded 01/27/24 11:16 MAVIS Review of Systems Review of Systems: As per HPI. Yes all other systems are reviewed and are negative Constitutional: Constitutional: Reports as per HPI [facility] Past Medical History Medical History Leg swelling Diabetic neuropathy Vaginal pain Cellulitis of right anterior lower leg Bruising Dissociative identity disorder Mild cognitive impairment Breast cancer screening by mammogram Back pain Cognitive impairment Hallucinations Kailash Peripheral vascular disease Uterine prolapse GERD (gastroesophageal reflux disease) Polysubstance abuse Type 2 diabetes mellitus with hyperglycemia Asthma Fatty liver Obesity (BMI 30-39.9) Hypercholesterolemia Hypertension Chronic hepatitis C Diarrhea Dementia Surgical History H/O colonoscopy History of ectopic History of appendectomy History of tonsillectomy History of cholecystectomy Family History Family History Father Diabetes Hypertension Mother Hypertension Diabetes CVD (cardiovascular disease) CAD (coronary artery disease) Maternal Aunt Myocardial infarction Cancer Maternal Uncle Myocardial infarction Social History Social History Household Members: Spouse and Family Housing: House Do you presently have visiting nurse or other home services: Yes Unable to assess alcohol history related to: Unknown Alcohol intake: never Comment: Non skid socks Patient Tobacco Use Status: Former Tobacco user Tobacco use type: Cigarette e-Cigarette/Vaping Use: Never Used Second Hand Smoke Exposure: No Currently Displaying Signs/Symptoms of Drug Intoxication Withdrawal: No Advance Directives: Yes Advance Directives on File: Yes Advance Directives Date on File: 01/27/24 Do you have thoughts of harming others: None Do you have a plan to hurt others: No Plan service: No Sexual orientation: Straight/Heterosexual Cognitive needs: No Hearing needs: No Vision needs: Yes Physical Exam ED Vital Signs: Vital Signs - 24 hr 01/27/24 11:16 01/27/24 13:00 Temperature 98 F Pulse Rate 74 65 Respiratory Rate 19 16 Blood Pressure 200/96 H 144/77 H Pulse Oximetry 98 95 Oxygen Delivery Method Room Air Room Air BMI result Body Mass Index 37.1 Vital signs have been reviewed and appear to be correct. Blood pressure elevated. Heart rate normal. Respiratory rate normal. Temperature normal. Oxygen saturation normal. Const General: cooperative and no acute distress Orientation/consciousness: oriented to person, oriented to place, oriented to time and patient oriented x3 Limitations: no limitations HENMT Head: Yes normocephalic and Yes atraumatic Ears: external ears normal General nose exam: Normal external nose present Face and sinus: Yes face symmetric Mouth: oropharynx normal and moist mucous membranes Throat: Yes uvula midline Eyes Pupils: Equal, round and reactive pupils present Neck Neck: Yes normal visual inspection and Yes supple Resp Effort & Inspection: normal respiratory effort and able to speak in complete sentences Auscultation: clear to auscultation bilaterally Cardio Rate: regular rate Rhythm: regular rhythm Heart sounds: S1 normal heart sound present and S2 normal heart sound present GI Palpation (GI): Soft to palpation and nontender Auscultation: normoactive bowel sounds General: Yes no CVA tenderness Back/Spine/Pelvis Back: no CVA tenderness Skin General skin exam: elasticity normal and turgor normal Rashes: rashes noted (fine erythematous maculopapular rash to bilat dorsal forearms) maculopapular rash bilateral dorsal arm Neuro General: oriented to person, oriented to place, oriented to time, patient oriented x3, moves all extremities, no focal motor deficits and CN's II-XI intact bilaterally Cranial nerves: Yes Equal, round and reactive pupils present Cognition (Neuro): normal cognition Extrem General: Yes full ROM, Yes no pedal edema and Yes no calf tenderness Psych Mental Status: mental status grossly normal Speech and movement: Normal speech and movement present Affect: normal affect Attitude: cooperative Thought process: Normal thought process present Thought content: Suicidality present and Hallucination(s) present auditory Insight: Fair insight present (Psych) Course Course Course Narrative: RME: 63-year-old female history of hypertension, diabetes, bipolar presents ED for suicidal ideation, dizziness, itchy rash, and manic. Patient labs, EkG, and care consult placed. patient hypertensive. Charge nurse Blanca gilliam for patient to come to the ED. Medications Administered Discontinued Medications Generic Name Dose Route Start Last Admin Trade Name Freq PRN Reason Stop Dose Admin Acetaminophen 650 mg 01/27/24 14:09 01/28/24 10:16 Acetaminophen 325 Mg Tablet PO 650 mg Q6H PRN Administration Pain, Mild (Pain Scale 1-3) Albuterol Sulfate 2 puff 01/27/24 19:56 01/28/24 13:03 Albuterol Sulfate 90 Mcg 8 Gm Inhaler INHALE 2 puff Q6H PRN Administration shortness of breath or wheezing Atorvastatin Calcium 20 mg 01/28/24 09:00 01/28/24 10:15 Atorvastatin Calcium 20 Mg Tablet PO 20 mg DAILY TARYN Administration Benztropine Mesylate 0.5 mg 01/27/24 21:00 01/28/24 10:16 Benztropine Mesylate 0.5 Mg Tablet PO 0.5 mg BID TARYN Administration Clonazepam 0.5 mg 01/27/24 19:56 01/28/24 12:48 Clonazepam 0.5 Mg Tablet PO 0.5 mg DAILY PRN Administration Anxiety Clonazepam 0.5 mg 01/27/24 21:00 01/28/24 10:15 Clonazepam 0.5 Mg Tablet PO 0.5 mg BID TARYN Administration Cyclobenzaprine HCl 5 mg 01/27/24 19:56 01/28/24 03:11 Cyclobenzaprine Hcl 5 Mg Tablet PO 5 mg TID PRN Administration muscle spasm Empagliflozin 10 mg 01/28/24 09:00 01/28/24 10:16 Empagliflozin 10 Mg Tablet PO 10 mg DAILY TAYRN Administration Enoxaparin Sodium 40 mg 01/27/24 14:15 01/28/24 14:37 Enoxaparin Sodium 40 Mg/0.4 Ml Syringe SUBCUT 40 mg Q24H TARYN Administration Fluticasone Propionate 1 puff 01/28/24 08:00 01/28/24 09:24 Fluticasone Propionate 100 Mcg Blst.W.Dev INHALE Not Given RBID TARYN Gabapentin 300 mg 01/27/24 21:00 01/28/24 10:15 Gabapentin 300 Mg Capsule PO 300 mg BID TARYN Administration Sodium Chloride 1,000 mls @ 999 mls/hr 01/27/24 12:45 01/27/24 16:38 Ns IV 01/27/24 13:45 Infused .Q1H1M TARYN Infusion Insulin Human Lispro 0 unit 01/28/24 11:30 01/28/24 11:47 Insulin Lispro 100 Unit/Ml 3 Ml Vial SUBCUT Not Given [facility] Protocol Meclizine HCl 25 mg 01/28/24 09:00 01/28/24 10:15 Meclizine Hcl 25 Mg Tablet PO 25 mg DAILY TARYN Administration Memantine 10 mg 01/27/24 21:00 01/28/24 10:16 Memantine Hcl 10 Mg Tablet PO 10 mg BID TARYN Administration Miconazole Nitrate 1 appl 01/27/24 21:00 01/28/24 10:16 Miconazole Nitrate 2% Powder 85 Gm Bottle TOPICAL 1 appl BID TARYN Administration Protocol Mirabegron 25 mg 01/27/24 21:00 01/27/24 23:53 Mirabegron 25 Mg Tab.Er.24h PO 25 mg BEDTIME TARYN Administration Naproxen 500 mg 01/27/24 21:00 01/28/24 10:15 Naproxen 500 Mg Tablet PO 500 mg BID TARYN Administration Pt Own (Loxapine 5 mg 01/27/24 21:00 01/27/24 22:26 Succinate 5 Mg PO 5 mg Capsule) BEDTIME TARYN Administration Pt Own (Loxapine 10 mg 01/27/24 21:00 01/28/24 10:16 Succinate 10 Mg PO 10 mg Capsule) BID TARYN Administration Pioglitazone HCl 15 mg 01/28/24 09:00 01/28/24 10:15 Pioglitazone Hcl 15 Mg Tablet PO 15 mg DAILY TARYN Administration Propranolol HCl 20 mg 01/27/24 21:00 01/28/24 14:36 Propranolol Hcl 20 Mg Tablet PO 20 mg TID TARYN Administration Protocol Sodium Chloride 3 ml 01/27/24 16:00 01/28/24 10:17 0.9 % Sodium Chloride Flush 3 Ml Syringe IVFLUSH 3 ml QSHIFT TARYN Administration Sodium Zirconium Cyclosilicate 10 gm 01/27/24 12:44 01/27/24 13:02 Sodium Zirconium Cyclosilicate 10 Gm Powd.Pack PO 01/27/24 12:45 10 gm ONCE ONE Administration Medical Decision Making Medical Decision Making [facility] Narrative: Patient is a 76-year-old Tuvaluan-speaking female with history of IBS with constipation, T2 DM, hypothyroidism, hypercholesterolemia, hiatal hernia, HTN, dilated CBD, choledocholithiasis status post cholecystectomy presenting to the emergency department with complaint of generalized abdominal pain and back pain for the past week. On exam patient is awake, A+Ox3, VS WNL, afebrile, normal neurological exam without focal deficits, physical exam findings as above. Given reported symptoms and physical exam findings, initial differential includes anemia, electrolyte abnormalities, cardiac arrhythmia, bipolar disorder. Labs notable for hyponatremia, hyperkalemia, negative troponin. IV NS and Lokelma ordered. EKG shows sinus rhythm with 1st degree AV block. BP improved in the ED without intervention. Admission for hyponatremia accepted by Dr. Oden to medicine service. Differential Diagnosis Differential Diagnoses: The differential diagnosis associated with the presentation includes As per [facility] Admission/Observation Consideration of admission/observation: Escalation of care including admission/observation considered Consult Healthcare Provider Management of the patient was discussed with: Hospitalist Lab Data [facility] Lab Attestation statement: I reviewed the patient's lab results. As per MDM. 01/27/24 11:32 01/28/24 06:19 Labs: Lab Results 01/27/24 Range/Units 11:32 WBC 6.6 (4.8-10.8) X10*3/uL RBC 4.86 (4.20-5.50) X10*6/uL Hgb 13.7 (12.0-16.0) g/dl Hct 40.0 (37.0-47.0) % MCV 82.3 (80.0-98.0) fL MCH 28.2 (27.0-33.0) pg MCHC 34.3 (31.0-35.0) g/dl RDW 14.2 (11.0-16.0) % Plt Count 190 (160-400) X10*3/uL MPV 9.0 L (9.4-12.3) fL Immature Gran % (Auto) 0.5 H (0.0-0.4) % Neut % (Auto) 50.3 (45-73) % Lymph % (Auto) 34.5 (20-40) % [place] % (Auto) 9.4 (2-11) % Eos % (Auto) 4.5 H (0-4) % Baso % (Auto) 0.8 (0-2) % Lymph # (Auto) 2.3 (1.2-4.9) X10*3/uL [place] # (Auto) 0.6 (0.1-1.2) X10*3/uL Eos # (Auto) 0.3 (0.0-0.4) X10*3/uL Baso # (Auto) 0.1 (0.0-0.2) X10*3/uL Abs Immat Gran (auto) 0.03 (0.00-0.03) X10*3/uL Absolute Neuts (auto) 3.3 (2.0-8.3) x10*3/uL Absolute Nucleated RBC 0.000 (0.0-0.012) X10*3/uL Nucleated RBC % (auto) 0.0 (0.0-0.2) /100WBC Sodium 124 L (135-145) mmol/L Potassium 5.3 H (3.3-5.1) mmol/L Chloride 91 L (96-108) mmol/L Carbon Dioxide 23 (22-29) mmol/L Anion Gap 15 (12-20) BUN 34 H (9-16) mg/dL Creatinine 1.10 (0.5-1.4) mg/dL Estim Creat Clear Calc 55.3 Estimated GFR 50 Random Glucose 121 H (60-115) mg/dL Calcium 9.8 (8.4-10.2) mg/dL Magnesium 1.9 (1.6-2.6) mg/dL Total Bilirubin 0.5 (0.0-1.0) mg/dL AST 34 H (5-31) U/L ALT 47 H (0-31) U/L Alkaline Phosphatase 164 H (39-117) U/L Troponin I High Sens < 2.7 (<3.5-17.0) ng/L Total Protein 8.0 (6.5-8.0) g/dL Albumin 3.9 (3.5-5.0) g/dL Ethyl Alcohol < 10 mg/dL COVID-19 (ALDAIR) Negative (Negative) COVID-19 Clin Com See Note Independent Interpretation I performed an independent interpretation of an: EKG (sinus rhythm with 1st degree AV block, rate 66bpm, prolonged NC interval) External Record Review External record reviewed: Inpatient record, Office record and Outpatient record Discharge Plan Discharge Clinical Impression: Hyponatremia, Hyperkalemia Patient Disposition: Admitted As Inpatient Interventions: [place]-Suicide Risk Severity Scale Last Done: 01/28/24 08:00 Admission Worksheet (ED) Last Done: 01/27/24 20:43 Discharge Date/Time: 01/27/24 22:54
[2024-01-27 11:40] LABS: MANUAL DIFF FLAG NO
[2024-01-27 11:42] LABS: Basophils Absolute Auto 0.1 X10*3/uL (0.0-0.2); Basophils Percent Auto 0.8 % (0-2); Eosinophils Absolute Auto 0.3 X10*3/uL (0.0-0.4); Eosinophils Percent Auto 4.5 % (0-4); Hemoglobin 13.7 g/dl (12.0-16.0); Imm Gran Abs Auto 0.03 X10*3/uL (0.00-0.03); Imm Gran Pct Auto 0.5 % (0.0-0.4); Lymphocytes Absolute Auto 2.3 X10*3/uL (1.2-4.9); Lymphocytes Percent Auto 34.5 % (20-40); Mean Corpuscular HGB Conc 34.3 g/dl (31.0-35.0); Mean Corpuscular Hemoglobin 28.2 pg (27.0-33.0); Mean Corpuscular Volume 82.3 fL (80.0-98.0); Monocytes Absolute Auto 0.6 X10*3/uL (0.1-1.2); Monocytes Percent Auto 9.4 % (2-11); Neutrophils Absolute Auto 3.3 x10*3/uL (2.0-8.3); Neutrophils Percent Auto 50.3 % (45-73); Platelet Count 190 X10*3/uL (160-400); Red Blood Count 4.86 X10*6/uL (4.20-5.50); Red Cell Distribution Width 14.2 % (11.0-16.0); White Blood Count 6.6 X10*3/uL (4.8-10.8)
[2024-01-27 11:56] LABS: COVID-19 Test Negative (Negative); IDNOW Serial# 152EDE1D
[2024-01-27 11:59] LABS: Alanine Aminotransferase 47 U/L (0-31); Albumin Level 3.9 g/dL (3.5-5.0); Alkaline Phosphatase 164 U/L (39-117); Anion Gap 15 (12-20); Aspartate Amino Transferase 34 U/L (5-31); Bilirubin Total 0.5 mg/dL (0.0-1.0); Blood Urea Nitrogen 34 mg/dL (9-16); Calcium 9.8 mg/dL (8.4-10.2); Carbon Dioxide 23 mmol/L (22-29); Chloride 91 mmol/L (96-108); Creatinine Clr Calc Pharmacy 55.3; Estimated Glomerular Filt Rate 50; Ethanol < 10 mg/dL; Glucose Random 121 mg/dL (60-115); Potassium 5.3 mmol/L (3.3-5.1); Sodium 124 mmol/L (135-145)
[2024-01-27 12:04] LABS: Troponin-I High Sensitivity < 2.7 ng/L (<3.5-17.0)
[2024-01-27] MEDS: 0.9 % Sodium Chloride 1,000 ML 999 ML IV (12:57)
[2024-01-27 13:00] VITALS: BP 144/77; PULSE 65; RESP 16; O2SAT 95
[2024-01-27] MEDS: Sodium Zirconium Cyclosilicate 10 GM POWD.PACK PO (13:02)
--- NOTE | 2024-01-27 13:24 | P.HPHOSP_ITS ---
History of Present Illness Date of Service: 01/27/24 <RUDOLPH Corral - Last Filed: 01/27/24 14:53> Attending physician on admission: Marv Gonzalez <RUDOLPH Corral - Last Filed: 01/27/24 14:53> Chief Complaint: Actively manic with SI <RUDOLPH Corral - Last Filed: 01/27/24 14:53> Pt is a 63-year-old female with a PMH significant for?mild intermittent asthma, HTN, non-insulin type 2 diabetes, fatty, chronic diarrhea, mild cognitive impairment, bipolar 1 disorder, disassociated identity disorder, and schizoaffective disorder who presents to the ED for evaluation of increased kailash, auditory hallucinations, and suicidal thoughts for the past 2-3 weeks. Patient's daughter is at bedside who helps supplement HPI. Daughter states manic symptoms began shortly after patient was placed on a short course of prednisone for 5 days 2 weeks ago?for respiratory illness. Patient endorses vague SI without a clear plan, the patient states she ?will if I am not admitted to the hospital?. Patient also complains of paranoia while at the same time stating that she feels like ?I can rule the world?. Patient has a nurse that visits her every morning to administer her medications. Patient is emotionally labile at time of interview, though cooperative. Unclear if patient has been experiencing auditory or visual hallucinations, though daughter notes she normally experiences these while actively manic. Medically, patient complains of chronic lower back pain and and chronic diarrhea for which she takes loperamide and follows with GI. Also complains of worsening intermittent, diffuse abdominal pain for the past month+. Patient rather vague about the symptoms and is unable to further specify duration, location, or intensity. Currently is not experiencing any abdominal pain. Labs in the ED revealed significant hyponatremia of 124. Patient's daughter notes she was recently started on hydrochlorothiazide 2 weeks prior hypertension. Patient reports she has been drinking and urinating much more than previous. In the ED pt was hypertensive up to 200/96, vitals otherwise WNL. Labs were significant for sodium 124, potassium 5.3, chloride 91, BUN 34, AST 34, ALT 47, and alk-phos 164. No leukocytosis. Stable H&H. Renal function around baseline. Troponin negative. EKG demonstrated sinus rhythm with first-degree AV block and nonspecific T-wave inversion in III, V1, and V2 no evidence of significant ST elevations or depressions. Pt was treated with IVF and Lokelma. Pt will be admitted to the hospital medical floor for treatment and further evaluation of hyponatremia and hyperkalemia. Once medically stabilized, patient will likely then be transferred to Psychiatry for inpatient stabilization due to acute kailash with vague SI. <RUDOLPH Corral - Last Filed: 01/27/24 14:53> Pt is a 63-year-old female with a PMH significant for?mild intermittent asthma, HTN, non-insulin type 2 diabetes, fatty, chronic diarrhea, mild cognitive impairment, bipolar 1 disorder, disassociated identity disorder, and schizoaffective disorder who presents to the ED for evaluation of increased kailash, auditory hallucinations, and suicidal thoughts for the past 2-3 weeks. Patient's daughter is at bedside who helps supplement HPI. Daughter states manic symptoms began shortly after patient was placed on a short course of prednisone for 5 days 2 weeks ago?for respiratory illness. Patient endorses vague SI without a clear plan, the patient states she ?will if I am not admitted to the hospital?. Patient also complains of paranoia while at the same time stating that she feels like ?I can rule the world?. Patient has a nurse that visits her every morning to administer her medications. Patient is emotionally labile at time of interview, though cooperative. Unclear if patient has been experiencing auditory or visual hallucinations, though daughter notes she normally experiences these while actively manic. Medically, patient complains of chronic lower back pain and and chronic diarrhea for which she takes loperamide and follows with GI. Also complains of worsening intermittent, diffuse abdominal pain for the past month+. Patient rather vague about the symptoms and is unable to further specify duration, location, or intensity. Currently is not experiencing any abdominal pain. Labs in the ED revealed significant hyponatremia of 124. Patient's daughter notes she was recently started on hydrochlorothiazide 2 weeks prior hypertension. Patient reports she has been drinking and urinating much more than previous. In the ED pt was hypertensive up to 200/96, vitals otherwise WNL. Labs were significant for sodium 124, potassium 5.3, chloride 91, BUN 34, AST 34, ALT 47, and alk-phos 164. No leukocytosis. Stable H&H. Renal function around baseline. Troponin negative. EKG demonstrated sinus rhythm with first-degree AV block and nonspecific T-wave inversion in III, V1, and V2 no evidence of significant ST elevations or depressions. Pt was treated with IVF and Lokelma. Pt will be admitted to the hospital medical floor for treatment and further evaluation of hyponatremia and hyperkalemia. Once medically stabilized, patient will likely then be transferred to Psychiatry for inpatient stabilization due to acute kailash with vague SI. <Marv Gonzalez MD - Last Filed: 01/28/24 08:34> Review of Systems 2 Review of Systems: Actively manic with possible auditory and visual hallucinations Paranoia Vague SI Diffuse abd pain x1 month+ Chronic diarrhea Chronic lower back pain <RUDOLPH Corral - Last Filed: 01/27/24 14:53> [facility] Medical History: Medical History Leg swelling Diabetic neuropathy Vaginal pain Cellulitis of right anterior lower leg Bruising Dissociative identity disorder Mild cognitive impairment Breast cancer screening by mammogram Back pain Cognitive impairment Hallucinations Kailash Peripheral vascular disease Uterine prolapse GERD (gastroesophageal reflux disease) Polysubstance abuse Type 2 diabetes mellitus with hyperglycemia Asthma Fatty liver Obesity (BMI 30-39.9) Hypercholesterolemia Hypertension Chronic hepatitis C Diarrhea Dementia <RUDOLPH Corral - Last Filed: 01/27/24 14:53> Family History: Family History Father Diabetes Hypertension Mother Hypertension Diabetes CVD (cardiovascular disease) CAD (coronary artery disease) Maternal Aunt Myocardial infarction Cancer Maternal Uncle Myocardial infarction <RUDOLPH Corral - Last Filed: 01/27/24 14:53> Surgical History: Surgical History H/O colonoscopy History of ectopic History of appendectomy History of tonsillectomy History of cholecystectomy <RUDOLPH Corral - Last Filed: 01/27/24 14:53> Social History: Social History Household Members: Spouse and Family Housing: House Do you presently have visiting nurse or other home services: Yes Unable to assess alcohol history related to: Unknown Alcohol intake: never Comment: Non skid socks Patient Tobacco Use Status: Former Tobacco user Tobacco use type: Cigarette Smoked in Last 30 Days: No e-Cigarette/Vaping Use: Never Used Second Hand Smoke Exposure: No Use of substances other than those prescribed or required for medical reasons: No Currently Displaying Signs/Symptoms of Drug Intoxication Withdrawal: No Have you been hit, kicked, punched, or otherwise hurt by someone within the past year? If so, by whom?: No Do you feel safe in your current relationship?: Yes Is there a partner from a previous relationship who is making you feel unsafe now?: No Are you made to feel afraid or neglected: No Advance Directives: Yes Advance Directives Information Provided: No Advance Directives on File: No Advance Directives Date on File: 01/27/24 Do you have a plan to hurt others: Vague Nutrition Risks: No Nutritional Risk Patient : No : No service: No Sexual orientation: Straight/Heterosexual Cognitive needs: No Hearing needs: No Vision needs: Yes <RUDOLPH Corral - Last Filed: 01/27/24 14:53> Meds Allergies/Adverse reactions: Allergies Allergy/AdvReac Type Severity Reaction Status Date / Time haloperidol [HALOPERIDOL] Allergy Intermediate SWELLING Verified 01/27/24 11:16 carbamazepine [From Tegretol] Allergy Mild RASH, Verified 01/27/24 11:16 TREMORS lithium [[place]] Allergy Mild RASH, Verified 01/27/24 11:16 CRAWLING OUT OF SKIN olanzapine [From Zyprexa] Allergy Mild KAILASH Verified 01/27/24 11:16 quetiapine [From Seroquel] Allergy Mild SWELLING Verified 01/27/24 11:16 WHOLE BODY, KAILASH topiramate [From TOPAMAX] Allergy Unknown KAILASH, SI Verified 01/27/24 11:16 trazodone [TRAZODONE] Allergy Unknown SYNCOPE Verified 01/27/24 11:16 aripiprazole [From ABILIFY] AdvReac Severe EXTREME SI Verified 01/27/24 11:16 amlodipine AdvReac Intermediate leg Verified 01/27/24 11:16 swelling empagliflozin AdvReac Intermediate facial rash Verified 01/27/24 11:16 [From Jardiance] metformin AdvReac Intermediate Diarrhea Verified 01/27/24 11:16 pioglitazone AdvReac Intermediate leg Verified 01/27/24 11:16 swelling lamotrigine [From Lamictal] AdvReac Mild KAILASH Verified 01/27/24 11:16 modafinil [From Provigil] AdvReac Mild KAILASH Verified 01/27/24 11:16 ALL ANTI DEPRESSENTS Allergy Unknown I GO Uncoded 01/27/24 11:16 MANIC All anti-depressants Allergy Unknown manic, rash Uncoded 01/27/24 11:16 From GEODON Allergy Unknown LETHARGY Uncoded 01/27/24 11:16 From WELLBUTRIN AdvReac Unknown AGITATION, Uncoded 01/27/24 11:16 MAVIS <RUDOLPH Corral - Last Filed: 01/27/24 14:53> Active Medications: Current Medications Sodium Chloride (Ns) 1,000 mls @ 999 mls/hr IV .Q1H1M TARYN Stop: 01/27/24 13:45 Last Admin: 01/27/24 12:57 Dose: 999 mls/hr <RUDOLPH Corral - Last Filed: 01/27/24 14:53> Home medications: Home Medications ?Medication ?Instructions ?Recorded ?Confirmed ?Last Taken ?Type clonazepam 0.5 mg tablet 0.5 mg PO BID anxiety 03/09/23 01/27/24 01/27/24 History propranolol 20 mg tablet 20 mg PO TID 03/09/23 01/27/24 01/27/24 History darifenacin 7.5 mg tablet,extended 7.5 mg PO DAILY 03/10/23 01/27/24 01/27/24 History release 24 hr benztropine 0.5 mg tablet 0.5 mg PO BID 03/11/23 01/27/24 01/27/24 History loxapine succinate 10 mg capsule 10 mg PO BID 04/22/23 01/27/24 01/27/24 History clonazepam 0.5 mg tablet 0.5 mg PO DAILY PRN Anxiety 01/27/24 01/27/24 Unknown History fluticasone propionate 110 1 puff inhalation BID 01/27/24 01/27/24 01/27/24 History mcg/actuation HFA aerosol inhaler meclizine 25 mg tablet 25 mg PO DAILY 01/27/24 01/27/24 01/27/24 History mirabegron 25 mg tablet,extended 25 mg PO BEDTIME 01/27/24 01/27/24 01/26/24 History release 24 hr (Myrbetriq) <RUDOLPH Corral - Last Filed: 01/27/24 14:53> Physical Exam 2 Vital Signs and Narrative: Vital Signs: Last Vital Signs Temp 98 F 01/27/24 11:16 Pulse 65 01/27/24 13:00 Resp 16 01/27/24 13:00 BP 144/77 H 01/27/24 13:00 Pulse Ox 95 01/27/24 13:00 O2 Del Method Room Air 01/27/24 13:00 BMI result Body Mass Index 37.1 <RUDOLPH Corral - Last Filed: 01/27/24 14:53> Constitutional: Alert, actively manic, in no acute distress. Mental Status: Oriented to person, place and time. Eyes: Pupils are equal, round, and reactive to light. Ear, Nose, and Throat: Oropharynx clear, mucous membranes moist. Ears and nose without deformities. Trachea midline. Respiratory: Clear to auscultation bilaterally. No wheezing, rales, or rhonchi. Cardiovascular: S1, S2 regular. No murmurs, rubs, or gallops. Gastrointestinal: Abdomen soft, non-tender, non-distended. Normal bowel sounds. Neurologic: Cranial nerves II-XII are grossly intact bilaterally. No focal neurological deficits. Moves all extremities spontaneously. Skin: Warm, dry. Musculoskeletal: No cyanosis or clubbing. Extremities: No edema. Psychiatric: Actively manic and emotionally labile, but cooperative. <RUDOLPH Corral - Last Filed: 01/27/24 14:53> Results Labs CBC and Chem 7: 01/27/24 11:32 01/28/24 06:19 <RUDOLPH Corral - Last Filed: 01/27/24 14:53> Labs: Laboratory Results - last 24 hr 01/27/24 11:32 MCV 82.3 MCH 28.2 MCHC 34.3 RDW 14.2 Plt Count 190 MPV 9.0 L Immature Gran % (Auto) 0.5 H Neut % (Auto) 50.3 Lymph % (Auto) 34.5 [place] % (Auto) 9.4 Eos % (Auto) 4.5 H Baso % (Auto) 0.8 Lymph # (Auto) 2.3 [place] # (Auto) 0.6 Eos # (Auto) 0.3 Baso # (Auto) 0.1 Abs Immat Gran (auto) 0.03 Absolute Neuts (auto) 3.3 Absolute Nucleated RBC 0.000 Nucleated RBC % (auto) 0.0 Anion Gap 15 Estim Creat Clear Calc 55.3 Estimated GFR 50 Random Glucose 121 H Calcium 9.8 Total Bilirubin 0.5 AST 34 H ALT 47 H Alkaline Phosphatase 164 H Troponin I High Sens < 2.7 Total Protein 8.0 Albumin 3.9 Ethyl Alcohol < 10 COVID-19 ([facility]IR) Negative COVID-19 Clin Com See Note <RUDOLPH Corral - Last Filed: 01/27/24 14:53> Assessment and Plan (1) Hyponatremia: Status: Acute <RUDOLPH Corral - Last Filed: 01/27/24 14:53> (2) Hyperkalemia: Status: Acute <RUDOLPH Corral - Last Filed: 01/27/24 14:53> (3) Suicidal ideation: Status: Resolved <RUDOLPH Corral - Last Filed: 01/27/24 14:53> Pt is a 63-year-old female with a PMH significant for?mild intermittent asthma, HTN, non-insulin type 2 diabetes, fatty, chronic diarrhea, mild cognitive impairment, bipolar 1 disorder, disassociated identity disorder, and schizoaffective disorder who presents to the ED for evaluation of increased kailash, auditory hallucinations, and suicidal thoughts for the past 2-3 weeks. Pt will be admitted to the hospital medical floor for treatment and further evaluation of hyponatremia and hyperkalemia. Once medically stabilized, patient will likely then be transferred to Psychiatry for inpatient stabilization due to acute kailash with vague SI. Hyponatremia Sodium 124 at time of presentation Secondary to diuretic use; patient started on hydrochlorothiazide 2 weeks ago Will hold hydrochlorothiazide Will place on fluid restrictions Follow sodium closely Hyperkalemia Potassium mildly elevated at 5.3 at time of presentation Pt received Lokelma 10gm in the ED Follow potassium Abdominal pain Pt complaining of intermittent diffuse abdominal pain for past month Currently no pain, abd exam benign No further workup indicated at this time Mood disorder with active kailash and SI 1-1 sitter Continue home mood stabilizers Psychiatry consult for med consult Will likely need inpatient psychiatric stabilization once medically cleared Chronic diarrhea Continue home loperamide Mild intermittent asthma Not in acute exacerbation Continue home inhalers HTN Continue lisinopril Hold hydrochlorothiazide Monitor BP HLD Continue statin Rro-obdknle-uqvnzmugp type 2 diabetes Continue home meds Will cover with SSI Diabetic diet Full Code Attending:?Dr. Gonzalez DVT Prophylaxis: Lovenox Pt will require a hospitalization of at least two nights for treatment of?hyponatremia and hyperkalemia likely secondary to hydrochlorothiazide use. Due to severity of hyponatremia, patient will require hospitalization for close monitoring of labs. Patient will also require inpatient psychiatric stabilization once medically cleared. <RUDOLPH Corral - Last Filed: 01/27/24 14:53> Quality Stroke Does the patient have a stroke diagnosis?: No <RUDOLPH Corral - Last Filed: 01/27/24 14:53> VTE Prior VTE?: No <RUDOLPH Corral - Last Filed: 01/27/24 14:53> VTE Risk Level:: Medical - moderate - high <RUDOLPH Corral - Last Filed: 01/27/24 14:53> VTE Device Contraindication: Treatment Not Indicated <RUDOLPH Corral - Last Filed: 01/27/24 14:53> VTE Drug Contraindication: N/A - Med Ordered <RUDOLPH Corral - Last Filed: 01/27/24 14:53>
[2024-01-27 13:46] LABS: Magnesium 1.9 mg/dL (1.6-2.6)
[2024-01-27 14:31] VITALS: BP 154/84; PULSE 66; RESP 20; TEMP 36.5; O2SAT 96
[2024-01-27 14:53] LABS: Appearance Urine Clear; Color Urine Yellow; Glucose Urine UA >=1000 mg/dL (Negative); Leukocyte Esterase Urine Small (1+) (Negative); Nitrite Urine Negative (Negative); PH 5.5 (5.0-9.0); UMIC TRIGGER UACC YES; Urine Blood Negative (Negative); Urine Ketones Negative (Negative); Urine Protein Negative (Neg-Trace)
[2024-01-27 14:55] LABS: Bacteria Urine 4+ (None Seen); Hyaline Casts Urine 0-2 /LPF (0-2); RBC Urine 0-2 /HPF (0-2); Squamous Epithelial Cell Urine 0-2 /HPF (0-2); UACC Culture Trigger YES; WBC Urine 21-50 /HPF (0-5)
[2024-01-27 15:05] LABS: Amphetamine Screen Urine Not Detected (Not Detect); Barbiturates, Urine Not Detected (Not Detect); Benzodiazepines Screen Urine Not Detected (Not Detect); Buprenorphine Scr Not Detected (Not Detect); Cannabinoid Screen Urine Not Detected (Not Detect); Cocaine Screen Urine Not Detected (Not Detect); Fentanyl, urine Not Detected (Not Detect); Methadone Screen, Urine Not Detected (Not Detect); Opiate Screen Urine Not Detected (Not Detect); Oxycodone Screen Urine Not Detected (Not Detect); Phencyclidine Screen Urine Not Detected (Not Detect)
[2024-01-27] MEDS: Enoxaparin Sodium 40 MG/0.4 ML SYRINGE SUBCUT (15:41)
[2024-01-27] MEDS: 0.9 % Sodium Chloride Flush 3 ML SYRINGE IVFLUSH ×2 (16:39→23:54)
--- NOTE | 2024-01-27 18:01 | PC.NURSE ---
pt resting on stretcher, waiting for bed assignment
--- NOTE | 2024-01-27 19:29 | PHA.MEDREC ---
Pharmacy Consult ? Medication Reconciliation Pharmacy has completed the medication reconciliation. Spoke to daughter Shasta ([phone]) via phone and she confirmed medication list. Patient takes clonazepam 0.5 mg bid and also another 0.5 mg daily prn. She takes loxapine 10 mg in the morning and 15 mg at bedtime. She uses flovent 110 mcg 1 puff bid. Her last dose of mounjaro 5 mg was today 01/27/24.
[2024-01-27] MEDS: Memantine HCl 10 MG TABLET PO (22:23)
[2024-01-27] MEDS: Propranolol HCL 20 MG TABLET PO (22:23)
[2024-01-27] MEDS: clonazePAM 0.5 MG TABLET PO (22:23)
[2024-01-27] MEDS: Gabapentin 300 MG CAPSULE PO (22:23)
[2024-01-27] MEDS: NaPROXEN 500 MG TABLET PO (22:24)
[2024-01-27] MEDS: Benztropine Mesylate 0.5 MG TABLET PO (22:24)
[2024-01-27 23:08] LABS: Glucose, Whole Blood 119 mg/dL (60-115)
[2024-01-27] MEDS: Mirabegron 25 MG TAB.ER.24H PO (23:53)
[2024-01-27 23:59] VITALS: BP 143/93; PULSE 65; RESP 19; TEMP 36.7; O2SAT 96
[2024-01-28] MEDS: Cyclobenzaprine HCl 5 MG TABLET PO (03:11)
[2024-01-28] MEDS: Acetaminophen 325 MG TABLET 650 MG PO ×2 (03:12→10:16)
[2024-01-28 03:29] VITALS: BP 125/70; PULSE 56; RESP 19; TEMP 36.6; O2SAT 95
[2024-01-28 06:47] LABS: Anion Gap 14 (12-20); Blood Urea Nitrogen 25 mg/dL (9-16); Calcium 10.1 mg/dL (8.4-10.2); Carbon Dioxide 24 mmol/L (22-29); Chloride 99 mmol/L (96-108); Creatinine Clr Calc Pharmacy 50.7; Estimated Glomerular Filt Rate 45; Glucose Random 102 mg/dL (60-115); Potassium 4.9 mmol/L (3.3-5.1); Sodium 132 mmol/L (135-145)
[2024-01-28 08:00] VITALS: BP 136/81; PULSE 76; RESP 20; TEMP 36.3; O2SAT 94
[2024-01-28 08:01] LABS: Glucose, Whole Blood 93 mg/dL (60-115)
--- NOTE | 2024-01-28 08:35 | P.DS_ITS ---
DS: Providers Provider Date of Service: 01/28/24 Date of admission: 01/27/24 14:03 Primary care physician: Kira Craven MD Consults: 01/27/24 11:22 Consult to Care Team Stat Comment: Reason for consultation: Suicidal 01/27/24 14:09 Consult to Psychiatry Routine Consulting Provider: Psych Covering Reason for consultation: Med management; pt actively manic w/SI 01/27/24 14:38 Consult for Sitter Routine Reason for consultation: Pt actively manic w/ vague SI 01/28/24 07:30 Consult to Care Team Routine Comment: Reason for consultation: psychosis, medically ready DS: Diagnosis Discharge Diagnosis (1) Hyponatremia: Status: Acute (2) Hyperkalemia: Status: Acute (3) Suicidal ideation: Status: Resolved DS: Summary Hospital Course Hospital Course: admission hpi cc: kailash and SI Pt is a 63-year-old female with a PMH significant for?mild intermittent asthma, HTN, non-insulin type 2 diabetes, fatty, chronic diarrhea, mild cognitive impairment, bipolar 1 disorder, disassociated identity disorder, and schizoaffective disorder who presents to the ED for evaluation of increased kailash, auditory hallucinations, and suicidal thoughts for the past 2-3 weeks. Patient's daughter is at bedside who helps supplement HPI. Daughter states manic symptoms began shortly after patient was placed on a short course of prednisone for 5 days 2 weeks ago?for respiratory illness. Patient endorses vague SI without a clear plan, the patient states she ?will if I am not admitted to the hospital?. Patient also complains of paranoia while at the same time stating that she feels like ?I can rule the world?. Patient has a nurse that visits her every morning to administer her medications. Patient is emotio corina labile at time of interview, though cooperative. Unclear if patient has been experiencing auditory or visual hallucinations, though daughter notes she normally experiences these while actively manic. Medically, patient complains of chronic lower back pain and and chronic diarrhea for which she takes loperamide and follows with GI. Also complains of worsening intermittent, diffuse abdominal pain for the past month+. Patient rather vague about the symptoms and is unable to further specify duration, location, or intensity. Currently is not experiencing any abdominal pain. Labs in the ED revealed significant hyponatremia of 124. Patient's daughter notes she was recently started on hydrochlorothiazide 2 weeks prior hypertension. Patient reports she has been drinking and urinating much more than previous. In the ED pt was hypertensive up to 200/96, vitals otherwise WNL. Labs were significant for sodium 124, potassium 5.3, chloride 91, BUN 34, AST 34, ALT 47, and alk-phos 164. No leukocytosis. Stable H&H. Renal function around baseline. Troponin negative. EKG demonstrated sinus rhythm with first-degree AV block and nonspecific T-wave inversion in III, V1, and V2 no evidence of significant ST elevations or depressions. Pt was treated with IVF and Lokelma. Pt will be admitted to the hospital medical floor for treatment and further evaluation of hyponatremia and hyperkalemia. Once medically stabilized, patient will likely then be transferred to Psychiatry for inpatient stabilization due to acute kailash with vague SI. Hospital course: This patient with a history of schizoaffective disorder presented with suicidal thoughts accompanied by auditory hallucinations. Laboratory findings showed a potassium level of 5.3 and sodium level of 124, though the patient was asymptomatic. The hyponatremia was attributed to HCTZ, which had been initiated two weeks prior. HCTZ was discontinued, and the patient received intravenous fluids with water restriction, resulting in the correction of sodium levels to 133. Additionally, the patient was treated for hyperkalemia with Lokelma 10 mg, leading to a repeat potassium level of 4.9. Despite these interventions, the pat ient's suicidal ideation persists, prompting the CARE team to recommend inpatient psychiatric hospitalization for further management. Final diagnoses: Hyponatremia Hyperkalemia Acute Psychosis Diabetes HTN Time Attestation Discharge Coordination Time (in mins): 40 Quality: Safe Use of Opioids Does Pt have an Active Cancer Diagnosis on the Problem List?: No Quality: Stroke Does the patient have a stroke diagnosis?: No Physical Exam Vital Signs: Vital Signs: Last Vital Signs Temp 97.3 F 01/28/24 08:00 Pulse 76 01/28/24 08:00 Resp 20 01/28/24 08:00 BP 136/81 01/28/24 08:00 Pulse Ox 94 01/28/24 08:00 O2 Del Method Room Air 01/28/24 08:00 BMI result Body Mass Index 37.1 General: AO X 3, no acute distress Resp: CTA bilateral CVS: S1,S2,RRR GI: +BS, NT, no distention Skin: No rash Neuro: motor grossly intact Psych: appropriate affect DS: Data Data Completed and Pending Labs on day of discharge: Laboratory Results - last 24 hr 01/27/24 01/27/24 01/27/24 11:32 14:37 23:04 WBC 6.6 RBC 4.86 Hgb 13.7 Hct 40.0 MCV 82.3 MCH 28.2 MCHC 34.3 RDW 14.2 Plt Count 190 MPV 9.0 L Immature Gran % (Auto) 0.5 H Neut % (Auto) 50.3 Lymph % (Auto) 34.5 [place] % (Auto) 9.4 Eos % (Auto) 4.5 H Baso % (Auto) 0.8 Lymph # (Auto) 2.3 [place] # (Auto) 0.6 Eos # (Auto) 0.3 Baso # (Auto) 0.1 Abs Immat Gran (auto) 0.03 Absolute Neuts (auto) 3.3 Absolute Nucleated RBC 0.000 Nucleated RBC % (auto) 0.0 Hold Purple Top Sodium 124 L Potassium 5.3 H Chloride 91 L Carbon Dioxide 23 Anion Gap 15 BUN 34 H Creatinine 1.10 Estim Creat Clear Calc 55.3 Estimated GFR 50 POC Glucose 119 H Random Glucose 121 H Calcium 9.8 Magnesium 1.9 Total Bilirubin 0.5 AST 34 H ALT 47 H Alkaline Phosphatase 164 H Troponin I High Sens < 2.7 Total Protein 8.0 Albumin 3.9 Urine Color Yellow Urine Appearance Clear Urine pH 5.5 Ur Specific [place] 1.010 Urine Protein Negative Urine Glucose (UA) >=1000 H Urine Ketones Negative Urine Blood Negative Urine Nitrite Negative Ur Leukocyte Esterase Small (1+) H Urine RBC 0-2 Urine WBC 21-50 H Ur Squamous Epith Cells 0-2 Urine Bacteria 4+ Hyaline Casts 0-2 Urine Opiates Screen Not Detected Ur Buprenorphine Scrn Not Detected Ur Oxycodone Screen Not Detected Urine Methadone Screen Not Detected Urine Fentanyl Screen Not Detected Ur Barbiturates Screen Not Detected Ur Phencyclidine Scrn Not Detected Ur Amphetamines Screen Not Detected U Benzodiazepines Scrn Not Detected Urine Cocaine Screen Not Detected U Marijuana (THC) Screen Not Detected Ethyl Alcohol < 10 COVID-19 ([facility]) Negative COVID-19 Clin Com See Note 01/28/24 01/28/24 06:19 07:57 WBC RBC Hgb Hct MCV MCH MCHC RDW Plt Count MPV Immature Gran % (Auto) Neut % (Auto) Lymph % (Auto) [place] % (Auto) Eos % (Auto) Baso % (Auto) Lymph # (Auto) [place] # (Auto) Eos # (Auto) Baso # (Auto) Abs Immat Gran (auto) Absolute Neuts (auto) Absolute Nucleated RBC Nucleated RBC % (auto) Hold Purple Top SEE NOTE Sodium 132 L Potassium 4.9 Chloride 99 Carbon Dioxide 24 Anion Gap 14 BUN 25 H Creatinine 1.20 Estim Creat Clear Calc 50.7 Estimated GFR 45 POC Glucose 93 Random Glucose 102 Calcium 10.1 Magnesium Total Bilirubin AST ALT Alkaline Phosphatase Troponin I High Sens Total Protein Albumin Urine Color Urine Appearance Urine pH Ur Specific [place] Urine Protein Urine Glucose (UA) Urine Ketones Urine Blood Urine Nitrite Ur Leukocyte Esterase Urine RBC Urine WBC Ur Squamous Epith Cells Urine Bacteria Hyaline Casts Urine Opiates Screen Ur Buprenorphine Scrn Ur Oxycodone Screen Urine Methadone Screen Urine Fentanyl Screen Ur Barbiturates Screen Ur Phencyclidine Scrn Ur Amphetamines Screen U Benzodiazepines Scrn Urine Cocaine Screen U Marijuana (THC) Screen Ethyl Alcohol COVID-19 ([facility]) COVID-19 Clin Com Discharge Plan Discharge Anticipated Discharge Date/Time: 01/28/24 08:44 Patient Disposition: Xfer Psychiatric Hosp Discharge Diagnosis: Acute Psychosis with suicidal thoughts, hyperkalemia, Hyponatremia Referrals: Kira Craven MD [Primary Care Provider] - 1 Week Discharge Medications: Continued albuterol sulfate 90 mcg/actuation HFA aerosol inhaler 2 inh inhalation Q6-8H PRN (Reason: shortness of breath or wheezing) Qty: 8.5 5RF (DME) blood-glucose meter [FreeStyle Lite Meter] Kit See Rx Instructions .Route Qty: 1 0RF Rx Instructions: As directed pioglitazone 15 mg tablet 15 mg PO DAILY Qty: 90 1RF Jardiance 10 mg tablet 10 mg PO DAILY Qty: 30 4RF meloxicam 15 mg tablet 15 mg PO DAILY 90 Days Qty: 90 0RF atorvastatin 20 mg tablet 20 mg PO DAILY Qty: 90 0RF cyclobenzaprine 5 mg tablet 5 mg PO TID PRN (Reason: muscle spasm) Qty: 60 2RF memantine 10 mg tablet 10 mg PO BID 90 Days Qty: 180 1RF (DME) FreeStyle Lite Strips Strip See Rx Instructions .ROUTE .MEDSUPPLY Qty: 100 3RF Rx Instructions: As directed check the BS QD gabapentin 300 mg capsule 300 mg PO BID 30 Days Qty: 180 3RF (DME) Depends large See Rx Instructions .Route .MEDSUPPLY Qty: 1 1RF Rx Instructions: As directed clonazepam 0.5 mg tablet 0.5 mg PO BID propranolol 20 mg tablet 20 mg PO TID darifenacin 7.5 mg tablet extended release 24 hr 7.5 mg PO DAILY benztropine 0.5 mg tablet 0.5 mg PO BID loxapine succinate 5 mg capsule 5 mg PO BEDTIME 30 Days Qty: 30 0RF Rx Instructions: take at bedtime with 10mg capsule Myrbetriq 25 mg tablet extended release 24 hr 25 mg PO BEDTIME meclizine 25 mg Tablet 25 mg PO DAILY fluticasone propionate 110 mcg/actuation HFA aerosol inhaler 1 puff INHALATION BID clonazepam 0.5 mg Tablet 0.5 mg PO DAILY PRN (Reason: Anxiety) lisinopril 40 mg tablet 40 mg PO DAILY 30 Days Qty: 30 8RF miconazole nitrate [Zeasorb AF] 2 % powder 1 appl topical BID Qty: 85 3RF tirzepatide 5 mg/0.5 mL pen injector 5 mg subcut QWEEK 28 Days Qty: 2 2RF loxapine succinate 10 mg capsule 10 mg PO BID Rx Instructions: 10mg in the morning and 15 mg at night. Discontinued hydrochlorothiazide 12.5 mg tablet 12.5 mg PO DAILY Qty: 90 2RF No Action (DME) blood pressure monitor [Blood Pressure Kit] Kit See Rx Instructions .ROUTE .MEDSUPPLY Qty: 1 0RF Rx Instructions: As directed Discharge Orders: Discharge Order (Routine); Ordered 01/28/24 Ordered By: Marv Gonzalez Diet: Diabetic diet Activity on Discharge: As tolerated Stand Alone Forms: Patient Portal Discharge page Print Language: Danish Care Plan Goals: Psychiatric treatment and return to baseline level of functioning Health Concerns: Acute Psychosis with sucidal thought hyperkalemia, Hyponatremia--resolved. Plan of Treatment: Inpatient Psychatric treatment on voluntary basis Stop taking Hydrocholothiazide Discharge Date/Time: 01/28/24 14:45
[2024-01-28] MEDS: NaPROXEN 500 MG TABLET PO (10:15)
[2024-01-28] MEDS: Propranolol HCL 20 MG TABLET PO ×2 (10:15→14:36)
[2024-01-28] MEDS: clonazePAM 0.5 MG TABLET PO ×2 (10:15→12:48)
[2024-01-28] MEDS: Gabapentin 300 MG CAPSULE PO (10:15)
[2024-01-28] MEDS: Atorvastatin Calcium 20 MG TABLET PO (10:15)
[2024-01-28] MEDS: Meclizine HCl 25 MG TABLET PO (10:15)
[2024-01-28] MEDS: Benztropine Mesylate 0.5 MG TABLET PO (10:16)
[2024-01-28] MEDS: Memantine HCl 10 MG TABLET PO (10:16)
[2024-01-28] MEDS: Empagliflozin 10 MG TABLET PO (10:16)
[2024-01-28] MEDS: Miconazole Nitrate 2% Powder 85 GM Bottle 1 APPL TOPICAL (10:16)
[2024-01-28] MEDS: 0.9 % Sodium Chloride Flush 3 ML SYRINGE IVFLUSH (10:17)
[2024-01-28 11:44] LABS: Glucose, Whole Blood 134 mg/dL (60-115)
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
[2024-01-28] MEDS: Albuterol Sulfate 90 MCG 8 GM INHALER 2 PUFF INHALE (13:03)
[2024-01-28 13:04] VITALS: PULSE 77; RESP 16; O2SAT 94
--- NOTE | 2024-01-28 13:44 | MHC.CM.PN ---
IMM 01/27. Pt self-care, lives at home with her partner. Pt states she has a nurse coming to the home daily for her medications, believes the agency is [facility]. Pt states she may have a ride at time of discharge but depending on the day and time may need assistance. Pt states she has a HCP, but does not have a copy and is not up to creating a new one at this time. PCP: Dr. Malone Po
[2024-01-28] MEDS: Enoxaparin Sodium 40 MG/0.4 ML SYRINGE SUBCUT (14:37)
[2024-02-01 16:31] LABS: Glucose, Whole Blood 127 mg/dL (60-115)
== END 2024-01-28 14:45 | DRG 641 ==
LOC: HO.ED 13:09 → HO.EDOVER 14:15 → HO.IMC 19:34
PROVIDERS: Physician Assistant; Registered Nurse Emergency; Admitting Provider Student in an Organized Health Care Education/Training Program; Emergency Provider Emergency Medicine; PCP Internal Medicine; Visit Provider Internal Medicine
DX: E87.1 Hypo-osmolality and hyponatremia (principal); R45.851 Suicidal ideations; E11.40 Type 2 diabetes mellitus with diabetic neuropathy, unspecified; J45.20 Mild intermittent asthma, uncomplicated; E78.5 Hyperlipidemia, unspecified; F29 Unspecified psychosis not due to a substance or known physiological condition; I10 Essential (primary) hypertension; K52.9 Noninfective gastroenteritis and colitis, unspecified; K76.0 Fatty (change of) liver, not elsewhere classified; T50.2X5A Adverse effect of carbonic-anhydrase inhibitors, benzothiadiazides and other diuretics, initial encounter; F03.90 Unspecified dementia, unspecified severity, without behavioral disturbance, psychotic disturbance, mood disturbance, and anxiety; E87.5 Hyperkalemia; Z20.822 Contact with and (suspected) exposure to COVID-19; Z87.891 Personal history of nicotine dependence; Z79.51 Long term (current) use of inhaled steroids; Z79.899 Other long term (current) drug therapy
CPT/HCPCS: 36415; 80048; 80053; 80307; 81001; 82947; 83735; 84484; 85025; 87086; 87088; 87186; 87635; 93005; 99285; J1650; S9485

== ENCOUNTER → 2024-01-27 11:20 | Outpatient (BNV) | payer OTHER, SELFPAY | PROVIDERS: Admitting Provider Student in an Organized Health Care Education/Training Program; Emergency Provider Emergency Medicine; PCP Internal Medicine; Visit Provider Internal Medicine Cardiovascular Disease | DX: I44.0 Atrioventricular block, first degree (principal) | CPT/HCPCS: 93010 ==

== ENCOUNTER → 2024-01-27 14:03 | Outpatient (BNV) | payer OTHER, SELFPAY | PROVIDERS: Admitting Provider Student in an Organized Health Care Education/Training Program; Emergency Provider Emergency Medicine; PCP Internal Medicine; Visit Provider Student in an Organized Health Care Education/Training Program | DX: E87.1 Hypo-osmolality and hyponatremia (principal); E87.5 Hyperkalemia; R45.851 Suicidal ideations | CPT/HCPCS: 99223; 99239 ==

== ENCOUNTER 2024-01-28 15:58 | Inpatient (IN) | payer OTHER, SELFPAY ==
[2024-01-28 16:00] VITALS: BP 176/96; PULSE 100; RESP 16; TEMP 36.3; O2SAT 94
--- OUTSIDE RECORDS SUMMARY | 2024-01-28 16:01 | XMS_ITS | Continuity of Care Document ---
Author Organization [facility] Address [address] [place] [address], 4t [place] [address]- Care Team Providers Care Football Scout Name Role Phone Kira Craven MD Primary Care Physician [phone] Encounter [facility] Date(s): 08/26/23 - 09/25/23 [facility] Dory Lewiss [facility] [address] [place] [address], 4th [address] [place], [place] [address] Allergies, Adverse Reactions, Alerts Substance Reaction Severity Status lithium Active risperidone Active Lamictal Active Abilify Active Seroquel Active Zoloft Active Wellbutrin Active Paxil Active Topamax Active Provigil Active Tegretol Active Haldol Active Geodon Active traZODone Active Zyprexa Active Depakote Active Immunizations Given and Recorded Vaccine Date Status Refusal Reason pneumococcal 23-valent vaccine 1 08/17/11 Given influenza virus vaccine, inactivated 2 08/17/11 Gi joey 1Result Comment: written information provided 2Result Comment: written information provided Medications Amlodipine 5 mg, By Mouth, Daily, Maintenance, 04/04/13 15:26:17 Start Date: 04/04/13 Status: Ordered atorvastatin 10 mg oral tablet 1 tablet = 10 mg, By Mouth, Daily, 0 Refills, Maintenance, 04/24/20 13:49:00 EDT Start Date: 04/24/20 Status: Ordered Benadryl 25 mg oral capsule 1 capsule = 25 mg, By Mouth, 2 times a day, # 30 capsule, 0 Refills, Maintenance, Capsule Start Date: 04/04/13 Status: Ordered Benadryl Tablet = 100 mg, By Mouth, Daily at bedtime, 0 Refills, Maintenance Start Date: 04/04/13 Status: Ordered Cogentin Tablet 1 mg, By Mouth, 2 times a day, Maintenance, 04/04/13 15:26:48 Start Date: 04/04/13 Status: Ordered cyclobenzaprine 5 mg oral tablet 1 tablet = 5 mg, By Mouth, 3 times a day, 0 Refills, Maintenance, 04/24/20 13:50:00 EDT Start Date: 04/24/20 Status: Ordered darifenacin 7.5 mg oral tablet, extended release 1 tablet, By Mouth, Daily, # 30 tablet, 11 Refills, Maintenance, 09/15/23 15:34:00 EST, [facility] #[id number], 93.89, kg, 09/15/23 15:30:00 EST, Dry Weight Start Date: 09/15/23 Status: Ordered Diflucan 150 mg oral tablet 1 tablet = 150 mg, By Mouth, Once, Repeat dose if symptoms persist after 48 hrs, # 2 tablet, 0 Refills, Soft Stop, 09/24/23 10:07:00 EST, Tablet, [facility] #[id number], Partial fill upon patient request if the prescription is for a schedule II o... Start Date: 09/24/23 Status: Ordered Diflucan 150 mg oral tablet 1 tablet = 150 mg, By Mouth, Once, Take 1 tablet today. Repeat dose in 3 days if symptoms persist.,# 2 tablet, 0 Refills, Soft Stop, 09/02/23 11:54:00 EST, Tablet, [facility] #[id number], Partial fill upon patient request if the prescription i... Start Date: 09/02/23 Status: Ordered Estrace Vaginal Cream 0.1 mg/g See Instructions, 1 gram Vaginally at bedtime twice per week, # 42 Gm, 4 Refills, Maintenance, 09/15/23 15:36:00 EST, [facility] #[id number], Partial fill upon patient request if the prescription is for a schedule II opioid drug., 93.89, kg, ... Start Date: 09/15/23 Status: Ordered Flovent 110 mcg Inhaler HFA Refills 0, Maintenance, 04/24/20 13:49:00 EDT Start Date: 04/24/20 Status: Ordered FreeStyle [place] FreeStyle [place], Refills 0, Maintenance, 04/24/20 13:51:00 EDT, Supply Start Date: 04/24/20 Status: Ordered FreeStyle Lite Test FreeStyle Lite Test, Refills 0, Maintenance, 04/24/20 13:50:00 EDT, Supply Start Date: 04/24/20 Status: Ordered gabapentin 300 mg oral capsule 300 mg, 1, capsule, By Mouth, 3 times a day, Refills 0, Maintenance, 04/24/20 13:49:00 EDT Start Date: 04/24/20 Status: Ordered Klonopin 1 mg oral tablet 1 tablet = 1 mg, By Mouth, 3 times a day, 0 Refills, Maintenance Start Date: 08/16/11 Status: Ordered lisinopril 10 mg oral tablet 10 mg, 1, tablet, By Mouth, Daily, Refills 0, Maintenance, 04/24/20 13:49:00 EDT Start Date: 04/24/20 Status: Ordered loperamide 2 mg oral capsule 2 mg, 1, capsule, By Mouth, Every 4 hours, Refills 0, Maintenance, 04/24/20 13:51:00 EDT Start Date: 04/24/20 Status: Ordered Loxitane = 20 mg, By Mouth, 2 times a day, 0 Refills, Maintenance Start Date: 04/04/13 Status: Ordered meloxicam 15 mg oral tablet 1 tablet = 15 mg, By Mouth, Daily, 0 Refills, Maintenance, 04/24/20 13:50:00 EDT Start Date: 04/24/20 Status: Ordered metFORMIN 1000 mg oral tablet 1 tablet = 1,000 mg, By Mouth, 2 times a day, 0 Refills, Maintenance, 04/24/20 13:49:00 EDT Start Date: 04/24/20 Status: Ordered Myrbetriq 25 mg oral tablet, extended release 1 tablet = 25 mg, By Mouth, Daily, # 30 tablet, 11 Refills, Maintenance, 09/15/23 15:36:00 EST, [facility] #[id number], Partial fill upon patient request if the prescription is for a schedule IIopioid drug., 93.89, kg, 09/15/23 15:30:00 EST, Dry... Start Date: 09/15/23 Status: Ordered ondansetron 4 mg oral tablet 1 tablet = 4 mg, By Mouth, Every 8 hours, 0 Refills, Maintenance, 04/24/20 13:50:00 EDT Start Date: 04/24/20 Status: Ordered ProAir Digihaler 90 mcg/inh inhalation powder 2 puffs, Inhalation, Every 6 hours, 0 Refills, Maintenance, 04/24/20 13:48:00 EDT Start Date: 04/24/20 Status: Ordered Propranolol 20 mg, By Mouth, 3 times a day, Maintenance, 04/04/13 15:30:29 Start Date: 04/04/13 Status: Ordered Supoort Stockings Supoort Stockings, Refills 0, Maintenance, 04/24/20 13:51:00 EDT, Supply Start Date: 04/24/20 Status: Ordered Wellbutrin 100 mg oral tablet 1 tablet = 100 mg, By Mouth, Daily, # 60 tablet, 0 Refills, Maintenance, Tablet Start Date: 04/04/13 Status: Ordered Problem List Condition Confirmation Course Effective Dates Status H ealth Status Informant Alcohol dependence in remission Confirmed Active Arthritis Confirmed Active Dissociative disorder Confirmed Active Esophageal reflux (GERD) Confirmed Active H/O cannabis abuse Confirmed Active H/O hallucinogen abuse Confirmed Active Hepatitis C Confirmed Active History of ectopic Confirmed Active Hx of cholecystectomy Confirmed Active Hypertension Confirmed Active Nicotine dependence Confirmed Active Post traumatic stress disorder (PTSD) Confirmed Active Social History Social History Type Response Smoking Status Former smoker, quit more than 30 days ago entered on: 01/09/20 Sex Patient Care team information Care Team Personnel Name: Karen Jarrett MD Position: [facility] ASSOCIATE ACCOUNT DIRECTOR MD Member Role: Lifetime ASSOCIATE ACCOUNT DIRECTOR Physician Address: Address: [address] [place] [address] [facility] [place] [address]- Name: Kira Craven MD Position: Reference Physician Member Role: PCP Address: Address: [address] [place] [id number]- Care Team Related Persons Name: JUVENAL CARBAJAL Address: home [address] Name: PT STATES NO ONE, UNK
--- OUTSIDE RECORDS SUMMARY | 2024-01-28 16:01 | XMS_ITS | Continuity of Care Document ---
Author Organization [facility] Dory Russ Address [address] [place] [address], 4t [place] [address]- Care Team Providers Care Director Inpatient Headache Program Name Role Phone Po Kira ARAGON Primary Care Physician Encounter [facility] Date(s): 09/24/23 - 10/24/23 [facility] Dorydawit CruzTemnoss [facility] [address] [place] [address], [address]th [address] [place], [place] [address] Attending Physician: AdmFerdinand [email or web address] Admitting Physician: Admtr, [id number] Referring Physician: Admtr, [...] tablet, 11 Refills, Maintenance, 09/15/23 15:34:00 EST, [facility] #[id number], 93.89, kg, 09/15/23 15:30:00 EST, Dry Weight Start Date: 09/15/23 Status: Ordered Diflucan 150 mg oral tablet 1 tablet = 150 mg, By Mouth, Once, Repeat dose if symptoms persist after 48 hrs, # 2 tablet, 0 Refills, Soft Stop, 09/24/23 10:07:00 EST, Tablet, [facility] #[id number], Partial fill upon patient request if the prescription is for a schedule II o... Start Date: 09/24/23 Status: Ordered Diflucan 150 mg oral tablet 1 tablet = 150 mg, By Mouth, Once, Take 1 tablet today. Repeat dose in 3 days if symptoms persist.,# 2 tablet, 0 Refills, Soft Stop, 09/02/23 11:54:00 EST, Tablet, [facility] #[id number], Partial fill upon patient request if the prescription i... Start Date: 09/02/23 Status: Ordered Estrace Vaginal Cream 0.1 mg/g See Instructions, 1 gram Vaginally at bedtime twice per week, # 42 Gm, 4 Refills, Maintenance, 09/15/23 15:36:00 EST, [facility] #[id number], Partial fill upon patient request if the prescription is for a schedule II opioid drug., 93.89, kg, ... Start Date: 09/15/23 Status: Ordered Flovent 110 mcg Inhaler HFA Refills 0, Maintenance, 04/24/20 13:49:00 EDT Start Date: 04/24/20 Status: Ordered FreeStyle [place] FreeStyle [place], Refills 0, Maintenance, 04/24/20 13:51:00 EDT, Supply [...] 13:49:00 EDT Start Date: 04/24/20 Status: Ordered metronidazole topical 0.75% gel with applicator 1 application, Vaginally, Daily at bedtime, # 70 Gm, 0 Refills, Maintenance, 09/27/23 15:13:00 EST,Gel, [facility] #[id number], Partial fill upon patient request if the prescription is for a schedule II opioid drug., 1 application Vaginally Maribel... Start Date: 09/27/23 Stop Date: 10/02/23 Status: Ordered Myrbetriq 25 mg oral tablet, extended release 1 tablet = 25 mg, By Mouth, Daily, # 30 tablet, 11 Refills, Maintenance, 09/15/23 15:36:00 EST, [facility] #[id number], Partial fill upon patient request if the [...] Team Personnel Name: Karen Jarrett MD Position: S ASSEMBLER FOR PULLER OVER MACHINE MD Member Role: Lifetime ASSEMBLER FOR PULLER OVER MACHINE Physician Address: Address: [address] [place] [address]'s [facility] [place] [address]- Name: Kira Craven MD Position: Reference Physician Member Role: PCP Address: Address: [address] [place], [place] [address], [place] [address]- Care Team Related Persons Name: JUVENAL CARBAJAL Address: home [address] [address] Name: PT STATES NO ONE, UNK
--- OUTSIDE RECORDS SUMMARY | 2024-01-28 16:02 | XMS_ITS | Continuity of Care Document ---
Author Organization [facility] Address [address] [place] [address], 4t [place] [address]- Care Team Providers Care Dry Chain Puller Name Role Phone Po Kira ARAGON Primary Care Physician [phone] [place] [facility] [place](s): 09/23/23 - 10/23/23 [facility] Dory Lewiss [facility] [address] [place] [address], 4th [address] [place], [place] [address] Allergies, Adverse Reactions, Alerts Substance Reaction Severity [...] tablet, 11 Refills, Maintenance, 09/15/23 15:34:00 EST, [facility] #[id number], 93.89, kg, 09/15/23 15:30:00 EST, Dry Weight Start Date: 09/15/23 Status: Ordered Diflucan 150 mg oral tablet 1 tablet = 150 mg, By Mouth, Once, Repeat dose if symptoms persist after 48 hrs, # 2 tablet, 0 Refills, Soft Stop, 09/24/23 10:07:00 EST, Tablet, [facility] #[id number], Partial fill upon patient request if the prescription is for a schedule II o... Start Date: 09/24/23 Status: Ordered Diflucan 150 mg oral tablet 1 tablet = 150 mg, By Mouth, Once, Take 1 tablet today. Repeat dose in 3 days if symptoms persist.,# 2 tablet, 0 Refills, Soft Stop, 09/02/23 11:54:00 EST, Tablet, [facility] #[id number], Partial fill upon patient request if the prescription i... Start Date: 09/02/23 Status: Ordered Estrace Vaginal Cream 0.1 mg/g See Instructions, 1 gram Vaginally at bedtime twice per week, # 42 Gm, 4 Refills, Maintenance, 09/15/23 15:36:00 EST, [facility] #[id number], Partial fill upon patient request if the prescription is for a schedule II opioid drug., 93.89, kg, ... Start Date: 09/15/23 Status: Ordered Flovent 110 mcg Inhaler HFA Refills 0, Maintenance, 04/24/20 13:49:00 EDT Start Date: 04/24/20 Status: Ordered FreeStyle [place] FreeStyle [place], Refills 0, Maintenance, 04/24/20 13:51:00 EDT, Supply [...] 70 Gm, 0 Refills, Maintenance, 09/27/23 15:13:00 EST,[facility] #[id number], Partial fill upon patient request if the prescription is for a schedule II opioid drug., 1 application Vaginally Maribel... Start Date: 09/27/23 Stop Date: 10/02/23 Status: Ordered Myrbetriq 25 mg oral tablet, extended release 1 tablet = 25 mg, By Mouth, Daily, # 30 tablet, 11 Refills, Maintenance, 09/15/23 15:36:[id number], Partial fill upon patient request if the [...] Personnel Name: Karen Jarrett MD Position: S WALLPAPER CONSULTANT MD Member Role: Lifetime WALLPAPER CONSULTANT Physician Address: Address: [address] [place] [address] [facility] [place] [address]- Name: Kira Craven MD Position: Reference Physician Member Role: PCP Address: Address: [address] [place] [address]- Care Team Related Persons Name: JUVENAL CARBAJAL Address: home [address] [place] [address] [place] [address] Name: PT STATES NO ONE, UNK
--- OUTSIDE RECORDS SUMMARY | 2024-01-28 16:02 | XMS_ITS | Continuity of Care Document ---
Author Organization [facility] Address [address] [place] [address]- Care Team Providers Care Science Consultant Name Role Phone Kira Craven MD Primary Care Physician Encounter [facility] Date(s): 01/07/24 - 01/14/24 [facility] [address] [place] [address]- Encounter Diagnosis Cough(Discharge Diagnosis) - 01/07/24 Moderate persistent asthma(Discharge Diagnosis) - 01/07/24 Diabetes(Discharge Diagnosis) - 01/07/24 Hemoptysis(Discharge Diagnosis) - 01/07/24 Attending Physician: Chelly Bean MD Referring Physician: Kira Craven MD Allergies, [...] provided 2Result Comment: written information provided Medications atorvastatin 10 mg oral tablet 1 tablet = 10 mg, By Mouth, Daily, 0 Refills, Maintenance, 04/24/20 13:49:00 EDT Start Date: 04/24/20 Status: Ordered Cogentin Tablet 1 mg, By [...] tablet, 11 Refills, Maintenance, 09/15/23 15:34:00 EST, [facility] #[id number], 93.89, kg, 09/15/23 15:30:00 EST, Dry Weight Start Date: 09/15/23 Status: Ordered Flovent 110 mcg Inhaler HFA Refills 0, Maintenance, 04/24/20 13:49:00 EDT Start Date: 04/24/20 Status: Ordered Flovent HFA 110 mcg/inh inhalation aerosol 2 puffs, Inhalation, 2 times a day, rinse mouth and throat after use, # 1 each, 0 Refills, Maintenance, 01/07/24 13:02:00 EDT, Aerosol, [facility] #[id number], Partial fill upon patient request if the prescription is for a schedule II opioid drug... Start Date: 01/07/24 Stop Date: 02/06/24 Status: Ordered FreeStyle [place] FreeStyle [place], Refills 0, Maintenance, 04/24/20 13:51:00 EDT, Supply Start Date: 04/24/20 Status: Ordered FreeStyle Lite Test FreeStyle Lite Test, Refills 0, Maintenance, 04/24/20 13:50:00 EDT, Supply Start Date: 04/24/20 Status: Ordered gabapentin 300 mg oral capsule 300 mg, 1, capsule, By Mouth, 3 times a day, Refills 0, Maintenance, 04/24/20 13:49:00 EDT Start Date: 04/24/20 Status: Ordered Jardiance 10 mg oral tablet 1 tablet = 10 mg, By Mouth, Daily in AM, # 30 tablet, 0 Refills, Maintenance, 01/07/24 11:49:00 EDT, Tablet, Partial fill upon patient request if the prescription is for a schedule II opioid drug. Start Date: 01/07/24 Status: Ordered Klonopin 1 mg oral tablet 1 tablet = 1 mg, By Mouth, 3 times a day, 0 Refills, Maintenance Start Date: 08/16/11 Status: Ordered lisinopril 10 mg oral tablet 10 mg, 1, tablet, By Mouth, Daily, Refills 0, Maintenance, 04/24/20 13:49:00 EDT Start Date: 04/24/20 Status: Ordered Loxitane = 20 mg, By Mouth, 2 times a day, 0 Refills, Maintenance Start Date: 04/04/13 Status: Ordered meloxicam 15 mg oral tablet 1 tablet = 15 mg, By Mouth, Daily, 0 Refills, Maintenance, 04/24/20 13:50:00 EDT Start Date: 04/24/20 Status: Ordered Myrbetriq 25 mg oral tablet, extended release 1 tablet = 25 mg, By Mouth, Daily, # 30 tablet, 11 Refills, Maintenance, 09/15/23 15:36:00 EST, [facility] #[id number], Partial fill upon patient request if the prescription is for a schedule IIopioid drug., 93.89, kg, 09/15/23 15:30:00 EST, Dry... Start Date: 09/15/23 Status: Ordered pioglitazone 15 mg oral tablet 1 tablet = 15 mg, By Mouth, Daily, # 30 tablet, 0 Refills, Maintenance, 01/07/24 11:50:00 EDT, Tablet, Partial fill upon patient request if the prescription is for a schedule II opioid drug. Start Date: 01/07/24 Status: Ordered predniSONE 10 mg oral tablet See Instructions, 40 mg po/d x 2 d then 30mg/d x1d, then 20mg/d x1d, then 10mg/d x1d then stop, # 14 tablet, 0 Refills, Maintenance, 01/07/24 12:58:00 EDT, [facility] #[id number], Partial fill upon patient request if the prescription is for a soren... Start Date: 01/07/24 Status: Ordered ProAir Digihaler 90 mcg/inh inhalation powder 2 puffs, Inhalation, Every 6 hours, 0 Refills, Maintenance, 04/24/20 13:48:00 EDT Start Date: 04/24/20 Status: Ordered ProAir HFA 90 mcg/inh inhalation aerosol 2 puffs, Inhalation, Every 4 hours, PRN as needed for wheezing, cough , short of breath, # 1 each, 0 Refills, Maintenance, 01/07/24 12:58:00 EDT, Aerosol, [facility] #[id number], Partial fill upon patient request if the prescription is for a sche... Start Date: 01/07/24 Stop Date: 02/06/24 Status: Ordered Propranolol 20 mg, By Mouth, 3 times a day, Maintenance, 04/04/13 15:30:29 Start Date: 04/04/13 Status: Ordered Supoort Stockings Supoort Stockings, Refills 0, Maintenance, 04/24/20 13:51:00 EDT, Supply Start Date: 04/24/20 Status: Ordered Problem List Condition Confirmation Course Effective Dates Status H ealth Status Informant Alcohol dependence in remission Confirmed Active Arthritis Confirmed Active Diabetes Confirmed Active Dissociative disorder Confirmed Active Esophageal reflux (GERD) Confirmed Active H/O cannabis abuse Confirmed Active H/O hallucinogen abuse Confirmed Active Hepatitis C Confirmed Active History of ectopic Confirmed Active Hx of cholecystectomy Confirmed Active Hypertension Confirmed Active Nicotine dependence Confirmed Active Post traumatic stress disorder (PTSD) Confirmed Active Diagnosis Diagnosis Type Effective Dates Health Status Clinical Service Informant Cough Discharge Diagnosis 01/07/24 Moderate persistent asthma Discharge Diagnosis 01/07/24 Diabetes Discharge Diagnosis 01/07/24 Hemoptysis Discharge Diagnosis 01/07/24 Vital Signs Most recent to oldest [Reference Range]: 1 Height 158.3 cm (01/07/24 11:50 AM) Oxygen Saturation [94-100 %] 97 % (01/07/24 11:50 AM) Pulse Rate [55-90 bpm] 57 bpm (01/07/24 11:50 AM) Blood Pressure [90-138/55-84 mm Hg] 111/ 72mm Hg (01/07/24 11:50 AM) Respiratory Rate [16-30 br/min] 18 br/mi n (01/07/24 11:50 AM) Temperature [96.8-100.4 DegF] 97.0 DegF (01/07/24 11:50 AM) Mode of Delivery (Oxygen) Room air (01/07/24 11:50 AM) Blood pressure sites Arm, left (01/07/24 11:50 AM) Temperature Route Temporal (01/07/24 11:50 AM) Social History Social History Type Response Smoking Status Former smoker, quit more than 30 days ago entered on: 01/09/20 Sex Patient Care team information Care Team Personnel Name: Karen Jarrett MD Position: [facility] SCENE PAINTER MD Member Role: Lifetime SCENE PAINTER Physician Address: Address: [address] [place] [address]- [place] Name: Kira Craven MD Position: Reference Physician Member Role: PCP Address: Address: [address] [place] [address]- Care Team Related Persons Name: PATTY ANGEL Name: JUVENAL CARBAJAL Address: [address] [address] Name: PT STATES NO ONE, UNK
[2024-01-28 17:23] LABS: Glucose, Whole Blood 132 mg/dL (60-115)
[2024-01-28 17:31] VITALS: BMI 37.1
--- NOTE | 2024-01-28 18:24 | PC.ADMIT ---
Mouna was admitted to at 1600 from [facility] Med-Tele on CV for treatment of bipolar disorder. She believes that the precipitant to this admission was the use of prednisone to treat and asthma exacerbation. While the steroid was helpful with her breathing, it seems to have caused dysregulation of her mood. She reported that when she came to [facility] her potassium and sodium were all off . She describes feeling unusually powerful yet suicidal. She is alert, oriented to person, place time and situation. She is cooperative with admission process, her skin assessment was completely unremarkable. She states that she is feeling anxious. Her affect is congruent. Her thought process is linear and her short term memory appears impaired. Appetite and sleep have remained per usual. Mouna does not struggle with substance use, and her tox screen is negative. She struggles with chronic back pain. She is also treated for dementia, asthma, diabetes, and hypertension. She denies ideation, plan or intent to harm others. She endorses suicidal ideations upon admission. She denies a plan, I only have a plan if I dissociate , she states she can seek staff if this changes and she feels worse. Mouna denies any visual or perceptual disturbances presently. Not yet, but I have had them over the years . Patient is placed on 15 minute checks for safety.
[2024-01-28 21:10] VITALS: BP 156/86; PULSE 72; TEMP 36.6
[2024-01-28] MEDS: Fluticasone Propionate 100 MCG BLST.W.DEV 1 PUFF INHALE (21:11)
[2024-01-28] MEDS: Propranolol HCL 20 MG TABLET PO (21:13)
[2024-01-28] MEDS: Melatonin 3 MG TABLET 6 MG PO (21:14)
[2024-01-28] MEDS: clonazePAM 0.5 MG TABLET PO (21:14)
[2024-01-28] MEDS: Benztropine Mesylate 0.5 MG TABLET PO (21:14)
[2024-01-28] MEDS: Gabapentin 300 MG CAPSULE PO (21:14)
[2024-01-28] MEDS: NaPROXEN 500 MG TABLET PO (21:15)
[2024-01-28] MEDS: Mirabegron 25 MG TAB.ER.24H PO (21:15)
[2024-01-28] MEDS: Cyclobenzaprine HCl 5 MG TABLET PO (21:16)
[2024-01-28] MEDS: Memantine HCl 10 MG TABLET PO (21:17)
[2024-01-28] MEDS: Miconazole Nitrate 2% Powder 85 GM Bottle 1 APPL TOPICAL (21:18)
[2024-01-28 21:37] LABS: Glucose, Whole Blood 129 mg/dL (60-115)
[2024-01-29 08:00] VITALS: BP 101/63; PULSE 72; RESP 16; TEMP 36.3; O2SAT 94
[2024-01-29 08:04] LABS: Estimated Average Glucose 163 mg/dL; Hemoglobin A1c % 7.3 % (<6.0)
[2024-01-29 08:18] LABS: Glucose, Whole Blood 141 mg/dL (60-115)
[2024-01-29 08:34] LABS: Cholesterol 125 mg/dL (<200); HDL Cholesterol 47 mg/dL (>40); LDL Cholesterol Calculated 45 mg/dL (<100); Triglycerides 168 mg/dL (<150)
--- NOTE | 2024-01-29 08:49 | P.PNPSI_ITS ---
Subjective Subjective Reason For Visit: bipolar disorder, PTSD Diagnostics Vital Signs (24Hr): Vital Signs - 24 hr 01/28/24 16:00 01/28/24 21:10 01/29/24 08:00 Temperature 97.3 F 97.9 F 97.4 F Pulse Rate 100 72 72 Respiratory Rate 16 16 Blood Pressure 176/96 H 156/86 H 101/63 Pulse Oximetry 94 94 Oxygen Delivery Method Room Air Room Air BMI result Body Mass Index 37.1 Labs Labs: Laboratory Results - last 48 hr 01/28/24 01/28/24 01/29/24 17:19 21:25 07:44 POC Glucose 132 H 129 H Estimat Average Glucose 163 Hemoglobin A1c % 7.3 H Triglycerides 168 H Cholesterol 125 LDL Cholesterol, Calc 45 HDL Cholesterol 47 01/29/24 08:06 POC Glucose 141 H Estimat Average Glucose Hemoglobin A1c % Triglycerides Cholesterol LDL Cholesterol, Calc HDL Cholesterol Medications Medications Current Medications Albuterol Sulfate (Albuterol Sulfate 90 Mcg 8 Gm Inhaler) 2 puff INHALE Q6H PRN PRN Reason: shortness of breath or wheezing Atorvastatin Calcium (Atorvastatin Calcium 20 Mg Tablet) 20 mg PO DAILY [facility] Benzonatate (Benzonatate 100 Mg Capsule) 100 mg PO TID PRN PRN Reason: Cough Benztropine Mesylate (Benztropine Mesylate 0.5 Mg Tablet) 0.5 mg PO BID [facility] Last Admin: 01/28/24 21:14 Dose: 0.5 mg Clonazepam (Clonazepam 0.5 Mg Tablet) 0.5 mg PO BID [facility] Last Admin: 01/28/24 21:14 Dose: 0.5 mg Clonazepam (Clonazepam 0.5 Mg Tablet) 0.5 mg PO DAILY PRN PRN Reason: Anxiety Cyclobenzaprine HCl (Cyclobenzaprine Hcl 5 Mg Tablet) 5 mg PO TID PRN PRN Reason: muscle spasm Last Admin: 01/28/24 21:16 Dose: 5 mg Empagliflozin (Empagliflozin 10 Mg Tablet) 10 mg PO DAILY [facility] Fluticasone Propionate (Fluticasone Propionate 100 Mcg Blst.W.Dev) 1 puff INHALE RBID [facility] Last Admin: 01/28/24 21:11 Dose: 1 puff Gabapentin (Gabapentin 300 Mg Capsule) 300 mg PO BID [facility] Last Admin: 01/28/24 21:14 Dose: 300 mg Glucose (Glucose Gel 15 Gm Gel..Gram.) 15 gm PO Q15M PRN; Protocol PRN Reason: per Hypoglycemia Standing Ord. Insulin Human Lispro (Insulin Lispro 100 Unit/Ml 3 Ml Vial) 0 unit SUBCUT QIDACHS [facility]; Protocol Last Admin: 01/28/24 21:29 Dose: Not Given Meclizine HCl (Meclizine Hcl 25 Mg Tablet) 25 mg PO DAILY [facility] Melatonin (Melatonin 3 Mg Tablet) 6 mg PO BEDTIME PRN PRN Reason: Insomnia Last Admin: 01/28/24 21:14 Dose: 6 mg Memantine (Memantine Hcl 10 Mg Tablet) 10 mg PO BID [facility] Last Admin: 01/28/24 21:17 Dose: 10 mg Miconazole Nitrate (Miconazole Nitrate 2% Powder 85 Gm Bottle) 1 appl TOPICAL BID [facility]; Protocol Last Admin: 01/28/24 21:18 Dose: 1 appl Mirabegron (Mirabegron 25 Mg Tab.Er.24h) 25 mg PO BEDTIME [facility] Last Admin: 01/28/24 21:15 Dose: 25 mg Naproxen (Naproxen 500 Mg Tablet) 500 mg PO BID [facility] Last Admin: 01/28/24 21:15 Dose: 500 mg Pt Own (Darifenacin (7.5 Mg)) 7.5 mg PO DAILY [facility] Pt Own (Loxapine (Succinate 5 Mg)) 5 mg PO BEDTIME [facility] Last Admin: 01/28/24 21:20 Dose: 5 mg Non-Formulary Medication (Loxapine Succinate) 10 mg PO BID [facility] Last Admin: 01/28/24 21:20 Dose: 10 mg Non-Formulary Medication (Tirzepatide) 5 mg SUBCUT Th [facility] Pioglitazone HCl (Pioglitazone Hcl 15 Mg Tablet) 15 mg PO DAILY [facility] Propranolol HCl (Propranolol Hcl 20 Mg Tablet) 20 mg PO TID [facility]; Protocol Last Admin: 01/28/24 21:13 Dose: 20 mg Allergies Allergies Allergy/AdvReac Type Severity Reaction Status Date / Time haloperidol [HALOPERIDOL] Allergy Intermediate SWELLING Verified 01/27/24 11:16 carbamazepine [From Tegretol] Allergy Mild RASH, Verified 01/27/24 11:16 TREMORS lithium [[place]] Allergy Mild RASH, Verified 01/27/24 11:16 CRAWLING OUT OF SKIN olanzapine [From Zyprexa] Allergy Mild RICHARD Verified 01/27/24 11:16 quetiapine [From Seroquel] Allergy Mild SWELLING Verified 01/27/24 11:16 WHOLE BODY, RICHARD topiramate [From TOPAMAX] Allergy Unknown RICHARD, SI Verified 01/27/24 11:16 trazodone [TRAZODONE] Allergy Unknown SYNCOPE Verified 01/27/24 11:16 aripiprazole [From ABILIFY] AdvReac Severe EXTREME SI Verified 01/27/24 11:16 amlodipine AdvReac Intermediate leg Verified 01/27/24 11:16 swelling empagliflozin AdvReac Intermediate facial rash Verified 01/27/24 11:16 [From Jardiance] metformin AdvReac Intermediate Diarrhea Verified 01/27/24 11:16 pioglitazone AdvReac Intermediate leg Verified 01/27/24 11:16 swelling lamotrigine [From Lamictal] AdvReac Mild RICHARD Verified 01/27/24 11:16 modafinil [From Provigil] AdvReac Mild RICHARD Verified 01/27/24 11:16 ALL ANTI DEPRESSENTS Allergy Unknown I GO Uncoded 01/27/24 11:16 MANIC All anti-depressants Allergy Unknown manic, rash Uncoded 01/27/24 11:16 From GEODON Allergy Unknown LETHARGY Uncoded 01/27/24 11:16 From WELLBUTRIN AdvReac Unknown AGITATION, Uncoded 01/27/24 11:16 MAVIS Assessment & Plan Time Spent With Patient Time: Total time managing care of this patient today ____ minutes.
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
[2024-01-29 08:53] LABS: Thyroid Stimulating Hormone 0.64 uIU/mL (0.32-4.0)
[2024-01-29] MEDS: Fluticasone Propionate 100 MCG BLST.W.DEV 1 PUFF INHALE ×2 (08:57→22:30)
[2024-01-29] MEDS: Memantine HCl 10 MG TABLET PO ×2 (08:58→22:17)
[2024-01-29] MEDS: NaPROXEN 500 MG TABLET PO ×2 (08:58→22:12)
[2024-01-29] MEDS: Propranolol HCL 20 MG TABLET PO ×3 (08:58→22:16)
[2024-01-29] MEDS: Gabapentin 300 MG CAPSULE PO (08:58)
[2024-01-29] MEDS: Atorvastatin Calcium 20 MG TABLET PO (08:59)
[2024-01-29] MEDS: Empagliflozin 10 MG TABLET PO (08:59)
[2024-01-29] MEDS: clonazePAM 0.5 MG TABLET PO ×3 (08:59→22:14)
[2024-01-29] MEDS: Meclizine HCl 25 MG TABLET PO (08:59)
[2024-01-29 09:04] LABS: Folate 6.7 ng/mL (> or = 4.0); Vitamin B12 790 pg/mL (200-900)
[2024-01-29] MEDS: Benztropine Mesylate 0.5 MG TABLET PO ×2 (09:09→22:18)
[2024-01-29] MEDS: Cyclobenzaprine HCl 5 MG TABLET PO ×3 (09:11→22:18)
[2024-01-29] MEDS: Miconazole Nitrate 2% Powder 85 GM Bottle 1 APPL TOPICAL (09:12)
[2024-01-29 11:50] LABS: Glucose, Whole Blood 115 mg/dL (60-115)
--- NOTE | 2024-01-29 14:40 | PC.NURSE ---
This morning during medication pass while this nurse was reviewing the medications that were being scanned, it was noted by Mouna that she had a med ordered that is on her allergy list, pioglitazone . This nurse did not give the medication and informed Dr Calderón.
[2024-01-29] MEDS: Acetaminophen 325 MG TABLET 975 MG PO (15:10)
[2024-01-29 18:10] LABS: Glucose, Whole Blood 105 mg/dL (60-115)
[2024-01-29 21:45] VITALS: BP 109/54; PULSE 67; TEMP 36.3
[2024-01-29 21:46] LABS: Glucose, Whole Blood 128 mg/dL (60-115)
[2024-01-29] MEDS: Gabapentin 400 MG CAPSULE PO (22:13)
[2024-01-29] MEDS: Melatonin 3 MG TABLET 6 MG PO (22:14)
[2024-01-29] MEDS: Mirabegron 25 MG TAB.ER.24H PO (22:14)
[2024-01-30 07:59] LABS: Anion Gap 20 (12-20); Carbon Dioxide 18 mmol/L (22-29); Chloride 101 mmol/L (96-108); Potassium 4.9 mmol/L (3.3-5.1); Sodium 134 mmol/L (135-145)
[2024-01-30 08:00] VITALS: BP 127/86; PULSE 75; RESP 16; TEMP 36.1; O2SAT 96
[2024-01-30 08:40] LABS: Glucose, Whole Blood 143 mg/dL (60-115)
[2024-01-30] MEDS: Meclizine HCl 25 MG TABLET PO (09:04)
[2024-01-30] MEDS: Cyclobenzaprine HCl 5 MG TABLET PO ×3 (09:04→21:52)
[2024-01-30] MEDS: Acetaminophen 325 MG TABLET 975 MG PO ×2 (09:04→14:57)
[2024-01-30] MEDS: Atorvastatin Calcium 20 MG TABLET PO (09:04)
[2024-01-30] MEDS: Propranolol HCL 20 MG TABLET PO ×3 (09:04→21:44)
[2024-01-30] MEDS: NaPROXEN 500 MG TABLET PO ×2 (09:04→21:42)
[2024-01-30] MEDS: clonazePAM 0.5 MG TABLET PO ×3 (09:05→21:43)
[2024-01-30] MEDS: Empagliflozin 10 MG TABLET PO (09:05)
[2024-01-30] MEDS: Gabapentin 400 MG CAPSULE PO ×2 (09:05→21:43)
[2024-01-30] MEDS: Memantine HCl 10 MG TABLET PO ×2 (09:05→21:41)
[2024-01-30] MEDS: Benztropine Mesylate 0.5 MG TABLET PO ×2 (09:05→21:42)
[2024-01-30] MEDS: Fluticasone Propionate 100 MCG BLST.W.DEV 1 PUFF INHALE ×2 (09:10→21:38)
[2024-01-30] MEDS: Miconazole Nitrate 2% Powder 85 GM Bottle 1 APPL TOPICAL ×2 (09:13→21:53)
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
[2024-01-30 12:38] LABS: Glucose, Whole Blood 103 mg/dL (60-115)
[2024-01-30 17:21] LABS: Glucose, Whole Blood 102 mg/dL (60-115)
[2024-01-30 20:00] VITALS: BP 119/63; PULSE 72; RESP 16; TEMP 36.1; O2SAT 97
[2024-01-30 20:30] LABS: Glucose, Whole Blood 105 mg/dL (60-115)
[2024-01-30] MEDS: Mirabegron 25 MG TAB.ER.24H PO (21:50)
[2024-01-31] VITALS: BP 125/70; PULSE 80; RESP 16; TEMP 36.1; O2SAT 99
[2024-01-31] MEDS: clonazePAM 0.5 MG TABLET PO ×3 (02:44→22:12)
[2024-01-31 08:19] LABS: Glucose, Whole Blood 113 mg/dL (60-115)
[2024-01-31 09:02] VITALS: BP 130/73; PULSE 65; RESP 20; TEMP 36.2; O2SAT 97
[2024-01-31] MEDS: Atorvastatin Calcium 20 MG TABLET PO (09:07)
[2024-01-31] MEDS: Benztropine Mesylate 0.5 MG TABLET PO ×2 (09:07→22:12)
[2024-01-31] MEDS: Meclizine HCl 25 MG TABLET PO (09:07)
[2024-01-31] MEDS: Fluticasone Propionate 100 MCG BLST.W.DEV 1 PUFF INHALE ×2 (09:07→21:50)
[2024-01-31] MEDS: NaPROXEN 500 MG TABLET PO ×2 (09:07→22:10)
[2024-01-31] MEDS: Memantine HCl 10 MG TABLET PO ×2 (09:07→22:11)
[2024-01-31] MEDS: Gabapentin 400 MG CAPSULE PO ×2 (09:07→22:11)
[2024-01-31] MEDS: Empagliflozin 10 MG TABLET PO (09:07)
[2024-01-31] MEDS: Propranolol HCL 20 MG TABLET PO ×3 (09:07→22:11)
[2024-01-31] MEDS: Cyclobenzaprine HCl 5 MG TABLET PO ×3 (09:11→22:21)
--- NOTE | 2024-01-31 10:18 | P.PNPSI_ITS ---
Subjective Subjective Date of Service: 01/31/24 Reason For Visit: bipolar disorder, PTSD Subjective Notes: Conditional Voluntary Healthcare Proxy: No Guardianship: No Medical Problems Affecting Mental Status: No Interim History: Per team report, slept 7 hours. Denies SI and expresses relief in not feeling suicidal. Labs. 01/29 Na 134, K+ 4.9 Reports richard when on prednisone for asthma exacerbation. Today, continues with some euphoria, pressure and urgency in communicating. I have not seen you in a long time. I have so many things to tell. I went on a family cruise to [place], on a plane and a ship. I still have dementia, maybe you can work on that when I am here. It is great to be here with all of you. I have RLS-you can work on that too, OK? . Medication Compliance: Yes Side effects from medications: Yes (Akathesia) Attending Groups: Intermittent Review of Systems Acute medical concerns: No Medical Review of Systems: unchanged Review of Systems Review of Systems Reports akathesia Mental Status Exam Mental Status Exam Patient Appearance: Appropriate Patient Orientation: Person, Place and Situation Level of Consciousness: Alert Patient Behavior: Appropriate, Talkative, Cooperative, Distractible and Good Eye Contact Mood Description: Cheerful and Expansive Affect Description: Expansive Patient Cognition Impaired: Yes Ability to Follow Directions: Good Speech Pattern: Spontaneous Speech Memory Description: Remote Impaired and Episodic Impaired Hallucinations: None (denies) Delusions: Grandiose (mild) Thought Process: Racing and Goal Oriented Thought Content: positive for Racing, positive for [place], positive for Circumstantial, positive for Goal Oriented and positive for Suicidal Ideation ( It is gone, isn't that great? ) Depressive Symptoms: Thoughts of /Suicide (denies) Judgement: Fair Diagnostics Vital Signs (24Hr): Vital Signs - 24 hr 01/30/24 20:00 01/31/24 00:00 01/31/24 09:02 Temperature 96.9 F 97 F 97.1 F Pulse Rate 72 80 65 Respiratory Rate 16 16 20 Blood Pressure 119/63 125/70 130/73 Pulse Oximetry 97 99 97 Oxygen Delivery Method Room Air Room Air Room Air BMI result Body Mass Index 37.1 Labs 01/30/24 07:30 Labs: Laboratory Results - last 48 hr 01/29/24 01/29/24 01/29/24 11:44 17:47 21:31 Sodium Potassium Chloride Carbon Dioxide Anion Gap POC Glucose 115 105 128 H 01/30/24 01/30/24 01/30/24 07:30 08:33 12:34 Sodium 134 L Potassium 4.9 Chloride 101 Carbon Dioxide 18 L Anion Gap 20 POC Glucose 143 H 103 01/30/24 01/30/24 01/31/24 17:11 20:24 08:08 Sodium Potassium Chloride Carbon Dioxide Anion Gap POC Glucose 102 105 113 Medications Medications Current Medications Acetaminophen (Acetaminophen 325 Mg Tablet) 975 mg PO Q6H PRN PRN Reason: Pain, Moderate(Pain Scale 4-6) Last Admin: 01/30/24 14:57 Dose: 975 mg Albuterol Sulfate (Albuterol Sulfate 90 Mcg 8 Gm Inhaler) 2 puff INHALE Q6H PRN PRN Reason: shortness of breath or wheezing Atorvastatin Calcium (Atorvastatin Calcium 20 Mg Tablet) 20 mg PO DAILY [facility] Last Admin: 01/31/24 09:07 Dose: 20 mg Benzonatate (Benzonatate 100 Mg Capsule) 100 mg PO TID PRN PRN Reason: Cough Benztropine Mesylate (Benztropine Mesylate 0.5 Mg Tablet) 0.5 mg PO BID [facility] Last Admin: 01/31/24 09:07 Dose: 0.5 mg Clonazepam (Clonazepam 0.5 Mg Tablet) 0.5 mg PO BID [facility] Last Admin: 01/31/24 09:08 Dose: 0.5 mg Clonazepam (Clonazepam 0.5 Mg Tablet) 0.5 mg PO DAILY PRN PRN Reason: Anxiety Last Admin: 01/31/24 02:44 Dose: 0.5 mg Cyclobenzaprine HCl (Cyclobenzaprine Hcl 5 Mg Tablet) 5 mg PO TID PRN PRN Reason: muscle spasm Last Admin: 01/31/24 09:11 Dose: 5 mg Empagliflozin (Empagliflozin 10 Mg Tablet) 10 mg PO DAILY [facility] Last Admin: 01/31/24 09:07 Dose: 10 mg Fluticasone Propionate (Fluticasone Propionate 100 Mcg Blst.W.Dev) 1 puff INHALE RBID [facility] Last Admin: 01/31/24 09:07 Dose: 1 puff Gabapentin (Gabapentin 400 Mg Capsule) 400 mg PO BID [facility] Last Admin: 01/31/24 09:07 Dose: 400 mg Glucose (Glucose Gel 15 Gm Gel..Gram.) 15 gm PO Q15M PRN; Protocol PRN Reason: per Hypoglycemia Standing Ord. Insulin Human Lispro (Insulin Lispro 100 Unit/Ml 3 Ml Vial) 0 unit SUBCUT QIDACHS [facility]; Protocol Last Admin: 01/31/24 09:05 Dose: Not Given Meclizine HCl (Meclizine Hcl 25 Mg Tablet) 25 mg PO DAILY [facility] Last Admin: 01/31/24 09:07 Dose: 25 mg Melatonin (Melatonin 3 Mg Tablet) 6 mg PO BEDTIME PRN PRN Reason: Insomnia Last Admin: 01/29/24 22:14 Dose: 6 mg Memantine (Memantine Hcl 10 Mg Tablet) 10 mg PO BID [facility] Last Admin: 01/31/24 09:07 Dose: 10 mg Miconazole Nitrate (Miconazole Nitrate 2% Powder 85 Gm Bottle) 1 appl TOPICAL BID [facility]; Protocol Last Admin: 01/30/24 21:53 Dose: 1 appl Mirabegron (Mirabegron 25 Mg Tab.Er.24h) 25 mg PO BEDTIME [facility] Last Admin: 01/30/24 21:50 Dose: 25 mg Naproxen (Naproxen 500 Mg Tablet) 500 mg PO BID [facility] Last Admin: 01/31/24 09:07 Dose: 500 mg Pt Own (Darifenacin (7.5 Mg)) 7.5 mg PO DAILY [facility] Last Admin: 01/31/24 09:13 Dose: 7.5 mg Pt Own (Loxapine (Succinate 5 Mg)) 5 mg PO BEDTIME [facility] Last Admin: 01/30/24 21:45 Dose: 5 mg Non-Formulary Medication (Loxapine Succinate) 10 mg PO BID [facility] Last Admin: 01/31/24 09:13 Dose: 10 mg Pt Own (Mounjaro 5 (Mg)) 5 mg SUBCUT Mo [facility] Last Admin: 01/31/24 09:49 Dose: 5 mg Propranolol HCl (Propranolol Hcl 20 Mg Tablet) 20 mg PO TID [facility]; Protocol Last Admin: 01/31/24 09:07 Dose: 20 mg Allergies Allergies Allergy/AdvReac Type Severity Reaction Status Date / Time haloperidol [HALOPERIDOL] Allergy Intermediate SWELLING Verified 01/27/24 11:16 carbamazepine [From Tegretol] Allergy Mild RASH, Verified 01/27/24 11:16 TREMORS lithium [[place]] Allergy Mild RASH, Verified 01/27/24 11:16 CRAWLING OUT OF SKIN olanzapine [From Zyprexa] Allergy Mild RICHARD Verified 01/27/24 11:16 quetiapine [From Seroquel] Allergy Mild SWELLING Verified 01/27/24 11:16 WHOLE BODY, RICHARD topiramate [From TOPAMAX] Allergy Unknown RICHARD, SI Verified 01/27/24 11:16 trazodone [TRAZODONE] Allergy Unknown SYNCOPE Verified 01/27/24 11:16 aripiprazole [From ABILIFY] AdvReac Severe EXTREME SI Verified 01/27/24 11:16 amlodipine AdvReac Intermediate leg Verified 01/27/24 11:16 swelling empagliflozin AdvReac Intermediate facial rash Verified 01/27/24 11:16 [From Jardiance] metformin AdvReac Intermediate Diarrhea Verified 01/27/24 11:16 pioglitazone AdvReac Intermediate leg Verified 01/27/24 11:16 swelling lamotrigine [From Lamictal] AdvReac Mild RICHARD Verified 01/27/24 11:16 modafinil [From Provigil] AdvReac Mild RICHARD Verified 01/27/24 11:16 ALL ANTI DEPRESSENTS Allergy Unknown I GO Uncoded 01/27/24 11:16 MANIC All anti-depressants Allergy Unknown manic, rash Uncoded 01/27/24 11:16 From GEODON Allergy Unknown LETHARGY Uncoded 01/27/24 11:16 From WELLBUTRIN AdvReac Unknown AGITATION, Uncoded 01/27/24 11:16 MAVIS Assessment & Plan Assessment & Plan (1) Hyponatremia: Status: Acute Code(s): E87.1 - Hypo-osmolality and hyponatremia Assessment and Plan: recent hyper kalemia- still low sodium hydrochlorathiazide dced 01/30/24- Na up to 134 from 132 K+ stable at moment 4.9 (2) Post traumatic stress disorder (PTSD): Status: Acute Code(s): F43.10 - Post-traumatic stress disorder, unspecified Assessment and Plan: hx of trauma in childhood 01/30/24 still some co dissociationwith si, but not reporting this to nursing (3) Schizoaffective disorder, bipolar type: Status: Acute Code(s): F25.0 - Schizoaffective disorder, bipolar type Assessment and Plan: some richard s/p prednisone Plan continue loxapine and clonazepam for psych watch for sundowning re ? MCI 01/30/24 - pt seems to be on the mend physically and emotionally - still have nursing check in re ? dissocation with si 01/30/23- Denies SI today Reports RLS, probably akathesia, increase Benztropine to 0.5 mg tid in trial. For 01/31 BMP Reason for continued inpatient stay Substantial Risk for: rapid decompensation and med/psych decompensation Time Spent With Patient Time: Total time managing care of this patient today ____ minutes.
[2024-01-31 13:32] LABS: Glucose, Whole Blood 125 mg/dL (60-115)
[2024-01-31] MEDS: Acetaminophen 325 MG TABLET 975 MG PO (14:13)
[2024-01-31 14:15] VITALS: BP 125/68; PULSE 79
[2024-01-31 17:04] LABS: Glucose, Whole Blood 108 mg/dL (60-115)
[2024-01-31 20:00] VITALS: BP 137/81; PULSE 72; RESP 20; TEMP 36.2; O2SAT 94
[2024-01-31 20:38] LABS: Glucose, Whole Blood 97 mg/dL (60-115)
[2024-01-31] MEDS: Mirabegron 25 MG TAB.ER.24H PO (22:10)
[2024-01-31 22:11] VITALS: BP 137/81; PULSE 72
[2024-01-31] MEDS: Miconazole Nitrate 2% Powder 85 GM Bottle 1 APPL TOPICAL (22:13)
[2024-02-01 08:00] VITALS: BP 123/68; PULSE 81; RESP 18; TEMP 36.2; O2SAT 96
[2024-02-01 08:03] LABS: Anion Gap 17 (12-20); Blood Urea Nitrogen 37 mg/dL (9-16); Calcium 10.3 mg/dL (8.4-10.2); Carbon Dioxide 19 mmol/L (22-29); Chloride 104 mmol/L (96-108); Creatinine Clr Calc Pharmacy 50.2; Estimated Glomerular Filt Rate 45; Glucose Random 117 mg/dL (60-115); Potassium 4.7 mmol/L (3.3-5.1); Sodium 135 mmol/L (135-145)
[2024-02-01 08:38] LABS: Glucose, Whole Blood 133 mg/dL (60-115)
[2024-02-01] MEDS: Memantine HCl 10 MG TABLET PO ×2 (09:06→21:10)
[2024-02-01] MEDS: Benztropine Mesylate 0.5 MG TABLET PO ×3 (09:06→21:09)
[2024-02-01] MEDS: Acetaminophen 325 MG TABLET 975 MG PO ×2 (09:06→16:10)
[2024-02-01] MEDS: Fluticasone Propionate 100 MCG BLST.W.DEV 1 PUFF INHALE ×2 (09:08→21:09)
[2024-02-01] MEDS: Meclizine HCl 25 MG TABLET PO (09:10)
[2024-02-01] MEDS: NaPROXEN 500 MG TABLET PO ×2 (09:10→21:08)
[2024-02-01] MEDS: clonazePAM 0.5 MG TABLET PO ×3 (09:10→21:10)
[2024-02-01] MEDS: Gabapentin 400 MG CAPSULE PO ×2 (09:10→21:09)
[2024-02-01] MEDS: Propranolol HCL 20 MG TABLET PO ×3 (09:10→19:11)
[2024-02-01] MEDS: Atorvastatin Calcium 20 MG TABLET PO (09:10)
[2024-02-01] MEDS: Empagliflozin 10 MG TABLET PO (09:12)
[2024-02-01] MEDS: Miconazole Nitrate 2% Powder 85 GM Bottle 1 APPL TOPICAL ×2 (09:13→21:11)
--- NOTE | 2024-02-01 09:52 | P.PNPSI_ITS ---
Subjective Subjective Date of Service: 02/01/24 Reason For Visit: bipolar disorder, PTSD Subjective Notes: Conditional Voluntary Healthcare Proxy: No Guardianship: No Medical Problems Affecting Mental Status: No Interim History: Pt report she is great . Presents with some hypomania, cheerfulness.Visable in milieu. Care discussed with daughter Shasat. Pt did very well on the family trip. She did not take her inhalers, thus needing steroids for her asthma treatment upon return. [place] also reports pt has done well since her last discharge. February is a difficult month as in February of 2023 pt lost her mother and sister. She was able to structure herself when the losses occurred and utilize supports, however, family is concerned as to how she will manage this first anniversary. Meds reviewed with Dr. Guerrero. Pt by history has not done well on mood stabilizers-several SE. We will try modest increase of Loxapine to 15 mg bid from 25 mg daily, an increase by 5 mg. Medication Compliance: Yes Side effects from medications: No Attending Groups: Yes Review of Systems Acute medical concerns: No Medical Review of Systems: unchanged Review of Systems Review of Systems Yes all other systems are reviewed and are negative Mental Status Exam Mental Status Exam Patient Appearance: Appropriate Patient Orientation: Person, Place and Situation Level of Consciousness: Alert Patient Behavior: Appropriate, Talkative, Cooperative, Distractible and Good Eye Contact Mood Description: Cheerful and Expansive Affect Description: Expansive Patient Cognition Impaired: Yes Ability to Follow Directions: Good Speech Pattern: Spontaneous Speech Memory Description: Remote Impaired and Episodic Impaired Hallucinations: None (denies) Delusions: Grandiose (mild) Thought Process: Racing and Goal Oriented Thought Content: positive for [place], positive for [place], positive for Circumstantial, positive for Goal Oriented and positive for Suicidal Ideation ( It is gone, isn't that great? ) Depressive Symptoms: Thoughts of /Suicide (denies) Judgement: Fair Diagnostics Vital Signs (24Hr): Vital Signs - 24 hr 01/31/24 14:15 01/31/24 20:00 01/31/24 22:11 Temperature 97.2 F Pulse Rate 79 72 72 Respiratory Rate 20 Blood Pressure 125/68 137/81 137/81 Pulse Oximetry 94 Oxygen Delivery Method Room Air 02/01/24 08:00 Temperature 97.2 F Pulse Rate 81 Respiratory Rate 18 Blood Pressure 123/68 Pulse Oximetry 96 Oxygen Delivery Method Room Air BMI result Body Mass Index 37.1 Labs 02/01/24 07:36 Labs: Laboratory Results - last 48 hr 01/30/24 01/30/24 01/30/24 12:34 17:11 20:24 Sodium Potassium Chloride Carbon Dioxide Anion Gap BUN Creatinine Estim Creat Clear Calc Estimated GFR POC Glucose 103 102 105 Random Glucose Calcium 01/31/24 01/31/24 01/31/24 08:08 13:29 16:55 Sodium Potassium Chloride Carbon Dioxide Anion Gap BUN Creatinine Estim Creat Clear Calc Estimated GFR POC Glucose 113 125 H 108 Random Glucose Calcium 01/31/24 02/01/24 02/01/24 20:34 07:36 08:31 Sodium 135 Potassium 4.7 Chloride 104 Carbon Dioxide 19 L Anion Gap 17 BUN 37 H Creatinine 1.21 Estim Creat Clear Calc 50.2 Estimated GFR 45 POC Glucose 97 133 H Random Glucose 117 H Calcium 10.3 H Medications Medications Current Medications Acetaminophen (Acetaminophen 325 Mg Tablet) 975 mg PO Q6H PRN PRN Reason: Pain, Moderate(Pain Scale 4-6) Last Admin: 02/01/24 09:06 Dose: 975 mg Albuterol Sulfate (Albuterol Sulfate 90 Mcg 8 Gm Inhaler) 2 puff INHALE Q6H PRN PRN Reason: shortness of breath or wheezing Atorvastatin Calcium (Atorvastatin Calcium 20 Mg Tablet) 20 mg PO DAILY [facility] Last Admin: 02/01/24 09:10 Dose: 20 mg Benzonatate (Benzonatate 100 Mg Capsule) 100 mg PO TID PRN PRN Reason: Cough Benztropine Mesylate (Benztropine Mesylate 0.5 Mg Tablet) 0.5 mg PO TID [facility] Last Admin: 02/01/24 09:06 Dose: 0.5 mg Clonazepam (Clonazepam 0.5 Mg Tablet) 0.5 mg PO BID [facility] Last Admin: 02/01/24 09:10 Dose: 0.5 mg Clonazepam (Clonazepam 0.5 Mg Tablet) 0.5 mg PO DAILY PRN PRN Reason: Anxiety Last Admin: 01/31/24 02:44 Dose: 0.5 mg Cyclobenzaprine HCl (Cyclobenzaprine Hcl 5 Mg Tablet) 5 mg PO TID PRN PRN Reason: muscle spasm Last Admin: 01/31/24 22:21 Dose: 5 mg Empagliflozin (Empagliflozin 10 Mg Tablet) 10 mg PO DAILY [facility] Last Admin: 02/01/24 09:12 Dose: 10 mg Fluticasone Propionate (Fluticasone Propionate 100 Mcg Blst.W.Dev) 1 puff INHALE RBID [facility] Last Admin: 02/01/24 09:08 Dose: 1 puff Gabapentin (Gabapentin 400 Mg Capsule) 400 mg PO BID [facility] Last Admin: 02/01/24 09:10 Dose: 400 mg Glucose (Glucose Gel 15 Gm Gel..Gram.) 15 gm PO Q15M PRN; Protocol PRN Reason: per Hypoglycemia Standing Ord. Insulin Human Lispro (Insulin Lispro 100 Unit/Ml 3 Ml Vial) 0 unit SUBCUT QIDACHS [facility]; Protocol Last Admin: 01/31/24 21:16 Dose: Not Given Meclizine HCl (Meclizine Hcl 25 Mg Tablet) 25 mg PO DAILY [facility] Last Admin: 02/01/24 09:10 Dose: 25 mg Melatonin (Melatonin 3 Mg Tablet) 6 mg PO BEDTIME PRN PRN Reason: Insomnia Last Admin: 01/29/24 22:14 Dose: 6 mg Memantine (Memantine Hcl 10 Mg Tablet) 10 mg PO BID [facility] Last Admin: 02/01/24 09:06 Dose: 10 mg Miconazole Nitrate (Miconazole Nitrate 2% Powder 85 Gm Bottle) 1 appl TOPICAL BID [facility]; Protocol Last Admin: 02/01/24 09:13 Dose: 1 appl Mirabegron (Mirabegron 25 Mg Tab.Er.24h) 25 mg PO BEDTIME [facility] Last Admin: 01/31/24 22:10 Dose: 25 mg Naproxen (Naproxen 500 Mg Tablet) 500 mg PO BID [facility] Last Admin: 02/01/24 09:10 Dose: 500 mg Pt Own (Darifenacin (7.5 Mg)) 7.5 mg PO DAILY [facility] Last Admin: 02/01/24 09:13 Dose: 7.5 mg Pt Own (Loxapine (Succinate 5 Mg)) 5 mg PO BEDTIME [facility] Last Admin: 01/31/24 22:12 Dose: 5 mg Non-Formulary Medication (Loxapine Succinate) 10 mg PO BID [facility] Last Admin: 02/01/24 09:12 Dose: 10 mg Pt Own (Mounjaro 5 (Mg)) 5 mg SUBCUT Mo [facility] Last Admin: 01/31/24 09:49 Dose: 5 mg Propranolol HCl (Propranolol Hcl 20 Mg Tablet) 20 mg PO TID [facility]; Protocol Last Admin: 02/01/24 09:10 Dose: 20 mg Allergies Allergies Allergy/AdvReac Type Severity Reaction Status Date / Time haloperidol [HALOPERIDOL] Allergy Intermediate SWELLING Verified 01/27/24 11:16 carbamazepine [From Tegretol] Allergy Mild RASH, Verified 01/27/24 11:16 TREMORS lithium [[place]] Allergy Mild RASH, Verified 01/27/24 11:16 CRAWLING OUT OF SKIN olanzapine [From Zyprexa] Allergy Mild KAILASH Verified 01/27/24 11:16 quetiapine [From Seroquel] Allergy Mild SWELLING Verified 01/27/24 11:16 WHOLE BODY, KAILASH topiramate [From TOPAMAX] Allergy Unknown KAILASH, SI Verified 01/27/24 11:16 trazodone [TRAZODONE] Allergy Unknown SYNCOPE Verified 01/27/24 11:16 aripiprazole [From ABILIFY] AdvReac Severe EXTREME SI Verified 01/27/24 11:16 amlodipine AdvReac Intermediate leg Verified 01/27/24 11:16 swelling empagliflozin AdvReac Intermediate facial rash Verified 01/27/24 11:16 [From Jardiance] metformin AdvReac Intermediate Diarrhea Verified 01/27/24 11:16 pioglitazone AdvReac Intermediate leg Verified 01/27/24 11:16 swelling lamotrigine [From Lamictal] AdvReac Mild KAILASH Verified 01/27/24 11:16 modafinil [From Provigil] AdvReac Mild KAILASH Verified 01/27/24 11:16 ALL ANTI DEPRESSENTS Allergy Unknown I GO Uncoded 01/27/24 11:16 MANIC All anti-depressants Allergy Unknown manic, rash Uncoded 01/27/24 11:16 From GEODON Allergy Unknown LETHARGY Uncoded 01/27/24 11:16 From WELLBUTRIN AdvReac Unknown AGITATION, Uncoded 01/27/24 11:16 MAVIS Assessment & Plan Assessment & Plan (1) Hyponatremia: Status: Acute Code(s): E87.1 - Hypo-osmolality and hyponatremia Assessment and Plan: recent hyper kalemia- still low sodium hydrochlorathiazide dced 01/30/24- Na up to 134 from 132 K+ stable at moment 4.9 (2) Post traumatic stress disorder (PTSD): Status: Acute Code(s): F43.10 - Post-traumatic stress disorder, unspecified Assessment and Plan: hx of trauma in childhood 01/30/24 still some co dissociationwith si, but not reporting this to nursing (3) Schizoaffective disorder, bipolar type: Status: Acute Code(s): F25.0 - Schizoaffective disorder, bipolar type Assessment and Plan: some kailash s/p prednisone Plan continue loxapine and clonazepam for psych watch for sundowning re ? MCI 01/30/24 - pt seems to be on the mend physically and emotionally - still have nursing check in re ? dissocation with si 01/30/23- Denies SI today Reports RLS, probably akathesia, increase Benztropine to 0.5 mg tid in trial. For 01/31 BMP 01/31/23: On 02/01, increase Loxapine to 15 mg bid. Patient educated on: medication risk/benefits Reason for continued inpatient stay Substantial Risk for: rapid decompensation Time Spent With Patient Time: Total time managing care of this patient today ____ minutes.
[2024-02-01] MEDS: Cyclobenzaprine HCl 5 MG TABLET PO (16:09)
[2024-02-01 17:38] LABS: Glucose, Whole Blood 104 mg/dL (60-115)
[2024-02-01 19:11] VITALS: BP 190/105
[2024-02-01 20:00] VITALS: BP 191/104; PULSE 96; RESP 16; TEMP 37; O2SAT 96
[2024-02-01] MEDS: Mirabegron 25 MG TAB.ER.24H PO (21:10)
[2024-02-01 21:14] LABS: Glucose, Whole Blood 124 mg/dL (60-115)
[2024-02-02] MEDS: Acetaminophen 325 MG TABLET 975 MG PO ×2 (00:40→13:30)
[2024-02-02 08:35] LABS: Glucose, Whole Blood 106 mg/dL (60-115)
[2024-02-02 09:30] VITALS: BP 117/77; PULSE 71; RESP 16; TEMP 36.1; O2SAT 98
[2024-02-02] MEDS: Fluticasone Propionate 100 MCG BLST.W.DEV 1 PUFF INHALE ×2 (09:33→21:10)
[2024-02-02] MEDS: Cyclobenzaprine HCl 5 MG TABLET PO ×2 (09:35→21:11)
[2024-02-02] MEDS: clonazePAM 0.5 MG TABLET PO ×2 (09:35→21:12)
[2024-02-02 09:36] VITALS: BP 117/77; PULSE 71
[2024-02-02] MEDS: Meclizine HCl 25 MG TABLET PO (09:36)
[2024-02-02] MEDS: Propranolol HCL 20 MG TABLET PO ×3 (09:36→21:12)
[2024-02-02] MEDS: Memantine HCl 10 MG TABLET PO ×2 (09:36→21:13)
[2024-02-02] MEDS: Benztropine Mesylate 0.5 MG TABLET PO ×3 (09:36→21:11)
[2024-02-02] MEDS: Gabapentin 400 MG CAPSULE PO ×2 (09:36→21:12)
[2024-02-02] MEDS: Atorvastatin Calcium 20 MG TABLET PO (09:36)
[2024-02-02] MEDS: Empagliflozin 10 MG TABLET PO (09:37)
[2024-02-02] MEDS: Miconazole Nitrate 2% Powder 85 GM Bottle 1 APPL TOPICAL ×2 (09:37→21:13)
[2024-02-02] MEDS: NaPROXEN 500 MG TABLET PO ×2 (09:37→21:11)
--- NOTE | 2024-02-02 11:54 | P.PNPSI_ITS ---
Subjective Subjective Date of Service: 02/02/24 Reason For Visit: bipolar disorder, PTSD Subjective Notes: Conditional Voluntary Healthcare Proxy: No Guardianship: No Medical Problems Affecting Mental Status: No Interim History: Met with Mouna and reviewed discussions with daughter Shasta and Dr. Guerrero, her out patient psychiatrist. Pt agrees Loxapine increase will be the safest plan at the current time. Will increase from 25 mg daily to 30 mg daily in divided doses. Pt reports feeling very well. She is using music to assist with sx mgt, and is engaged in the milieu today with the team and with peers. Team report afternoon and evening sx of HTN. Will trial prn Clonidine as there does not seem to be an established pattern of this. Will schedule if this persists. Pt did not want to increase Propranolol. Medication Compliance: Yes Side effects from medications: No Attending Groups: Yes Review of Systems Acute medical concerns: No Medical Review of Systems: unchanged Review of Systems Review of Systems Yes all other systems are reviewed and are negative Mental Status Exam Mental Status Exam Patient Appearance: Appropriate Patient Orientation: Person, Place and Situation Level of Consciousness: Alert Patient Behavior: Appropriate, Talkative, Cooperative, Distractible and Good Eye Contact Mood Description: Cheerful and Expansive Affect Description: Expansive Patient Cognition Impaired: Yes Ability to Follow Directions: Good Speech Pattern: Spontaneous Speech Memory Description: Remote Impaired and Episodic Impaired Hallucinations: None (denies) Delusions: Grandiose (mild) Thought Process: Racing and Goal Oriented Thought Content: positive for [place], positive for [place], positive for Circumstantial, positive for Goal Oriented and positive for Suicidal Ideation ( It is gone, isn't that great? ) Depressive Symptoms: Thoughts of /Suicide (denies) Judgement: Fair Diagnostics Vital Signs (24Hr): Vital Signs - 24 hr 02/01/24 19:11 02/01/24 20:00 02/02/24 09:30 Temperature 98.6 F 96.9 F Pulse Rate 96 71 Respiratory Rate 16 16 Blood Pressure 190/105 H 191/104 H 117/77 Pulse Oximetry 96 98 Oxygen Delivery Method Room Air Room Air 02/02/24 09:36 Temperature Pulse Rate 71 Respiratory Rate Blood Pressure 117/77 Pulse Oximetry Oxygen Delivery Method BMI result Body Mass Index 37.1 Labs 02/01/24 07:36 Labs: Laboratory Results - last 48 hr 01/31/24 01/31/24 01/31/24 13:29 16:55 20:34 Sodium Potassium Chloride Carbon Dioxide Anion Gap BUN Creatinine Estim Creat Clear Calc Estimated GFR POC Glucose 125 H 108 97 Random Glucose Calcium 02/01/24 02/01/24 02/01/24 07:36 08:31 17:30 Sodium 135 Potassium 4.7 Chloride 104 Carbon Dioxide 19 L Anion Gap 17 BUN 37 H Creatinine 1.21 Estim Creat Clear Calc 50.2 Estimated GFR 45 POC Glucose 133 H 104 Random Glucose 117 H Calcium 10.3 H 02/01/24 02/02/24 21:06 08:32 Sodium Potassium Chloride Carbon Dioxide Anion Gap BUN Creatinine Estim Creat Clear Calc Estimated GFR POC Glucose 124 H 106 Random Glucose Calcium Medications Medications Current Medications Acetaminophen (Acetaminophen 325 Mg Tablet) 975 mg PO Q6H PRN PRN Reason: Pain, Moderate(Pain Scale 4-6) Last Admin: 02/02/24 00:40 Dose: 975 mg Albuterol Sulfate (Albuterol Sulfate 90 Mcg 8 Gm Inhaler) 2 puff INHALE Q6H PRN PRN Reason: shortness of breath or wheezing Atorvastatin Calcium (Atorvastatin Calcium 20 Mg Tablet) 20 mg PO DAILY [facility] Last Admin: 02/02/24 09:36 Dose: 20 mg Benzonatate (Benzonatate 100 Mg Capsule) 100 mg PO TID PRN PRN Reason: Cough Benztropine Mesylate (Benztropine Mesylate 0.5 Mg Tablet) 0.5 mg PO TID [facility] Last Admin: 02/02/24 09:36 Dose: 0.5 mg Clonazepam (Clonazepam 0.5 Mg Tablet) 0.5 mg PO BID [facility] Last Admin: 02/02/24 09:35 Dose: 0.5 mg Clonazepam (Clonazepam 0.5 Mg Tablet) 0.5 mg PO DAILY PRN PRN Reason: Anxiety Last Admin: 01/31/24 02:44 Dose: 0.5 mg Cyclobenzaprine HCl (Cyclobenzaprine Hcl 5 Mg Tablet) 5 mg PO TID PRN PRN Reason: muscle spasm Last Admin: 02/02/24 09:35 Dose: 5 mg Empagliflozin (Empagliflozin 10 Mg Tablet) 10 mg PO DAILY [facility] Last Admin: 02/02/24 09:37 Dose: 10 mg Fluticasone Propionate (Fluticasone Propionate 100 Mcg Blst.W.Dev) 1 puff INHALE RBID [facility] Last Admin: 02/02/24 09:33 Dose: 1 puff Gabapentin (Gabapentin 400 Mg Capsule) 400 mg PO BID [facility] Last Admin: 02/02/24 09:36 Dose: 400 mg Glucose (Glucose Gel 15 Gm Gel..Gram.) 15 gm PO Q15M PRN; Protocol PRN Reason: per Hypoglycemia Standing Ord. Insulin Human Lispro (Insulin Lispro 100 Unit/Ml 3 Ml Vial) 0 unit SUBCUT QIDACHS [facility]; Protocol Last Admin: 02/02/24 08:52 Dose: Not Given Meclizine HCl (Meclizine Hcl 25 Mg Tablet) 25 mg PO DAILY [facility] Last Admin: 02/02/24 09:36 Dose: 25 mg Melatonin (Melatonin 3 Mg Tablet) 6 mg PO BEDTIME PRN PRN Reason: Insomnia Last Admin: 01/29/24 22:14 Dose: 6 mg Memantine (Memantine Hcl 10 Mg Tablet) 10 mg PO BID [facility] Last Admin: 02/02/24 09:36 Dose: 10 mg Miconazole Nitrate (Miconazole Nitrate 2% Powder 85 Gm Bottle) 1 appl TOPICAL BID [facility]; Protocol Last Admin: 02/02/24 09:37 Dose: 1 appl Mirabegron (Mirabegron 25 Mg Tab.Er.24h) 25 mg PO BEDTIME [facility] Last Admin: 02/01/24 21:10 Dose: 25 mg Naproxen (Naproxen 500 Mg Tablet) 500 mg PO BID [facility] Last Admin: 02/02/24 09:37 Dose: 500 mg Pt Own (Darifenacin (7.5 Mg)) 7.5 mg PO DAILY [facility] Last Admin: 02/02/24 09:56 Dose: 7.5 mg Pt Own (Mounjaro 5 (Mg)) 5 mg SUBCUT Mo [facility] Last Admin: 01/31/24 09:49 Dose: 5 mg Non-Formulary Medication (Loxapine) 15 mg PO BID [facility] Propranolol HCl (Propranolol Hcl 20 Mg Tablet) 20 mg PO TID [facility]; Protocol Last Admin: 02/02/24 09:36 Dose: 20 mg Allergies Allergies Allergy/AdvReac Type Severity Reaction Status Date / Time haloperidol [HALOPERIDOL] Allergy Intermediate SWELLING Verified 01/27/24 11:16 carbamazepine [From Tegretol] Allergy Mild RASH, Verified 01/27/24 11:16 TREMORS lithium [[place]] Allergy Mild RASH, Verified 01/27/24 11:16 CRAWLING OUT OF SKIN olanzapine [From Zyprexa] Allergy Mild KAILASH Verified 01/27/24 11:16 quetiapine [From Seroquel] Allergy Mild SWELLING Verified 01/27/24 11:16 WHOLE BODY, KAILASH topiramate [From TOPAMAX] Allergy Unknown KAILASH, SI Verified 01/27/24 11:16 trazodone [TRAZODONE] Allergy Unknown SYNCOPE Verified 01/27/24 11:16 aripiprazole [From ABILIFY] AdvReac Severe EXTREME SI Verified 01/27/24 11:16 amlodipine AdvReac Intermediate leg Verified 01/27/24 11:16 swelling empagliflozin AdvReac Intermediate facial rash Verified 01/27/24 11:16 [From Jardiance] metformin AdvReac Intermediate Diarrhea Verified 01/27/24 11:16 pioglitazone AdvReac Intermediate leg Verified 01/27/24 11:16 swelling lamotrigine [From Lamictal] AdvReac Mild KAILASH Verified 01/27/24 11:16 modafinil [From Provigil] AdvReac Mild KAILASH Verified 01/27/24 11:16 ALL ANTI DEPRESSENTS Allergy Unknown I GO Uncoded 01/27/24 11:16 MANIC All anti-depressants Allergy Unknown manic, rash Uncoded 01/27/24 11:16 From GEODON Allergy Unknown LETHARGY Uncoded 01/27/24 11:16 From WELLBUTRIN AdvReac Unknown AGITATION, Uncoded 01/27/24 11:16 MAVIS Assessment & Plan Assessment & Plan (1) Hyponatremia: Status: Acute Code(s): E87.1 - Hypo-osmolality and hyponatremia Assessment and Plan: recent hyper kalemia- still low sodium hydrochlorathiazide dced 01/30/24- Na up to 134 from 132 K+ stable at moment 4.9 (2) Post traumatic stress disorder (PTSD): Status: Acute Code(s): F43.10 - Post-traumatic stress disorder, unspecified Assessment and Plan: hx of trauma in childhood 01/30/24 still some co dissociationwith si, but not reporting this to nursing (3) Schizoaffective disorder, bipolar type: Status: Acute Code(s): F25.0 - Schizoaffective disorder, bipolar type Assessment and Plan: some kailash s/p prednisone Plan continue loxapine and clonazepam for psych watch for sundowning re ? [facility]CI 01/30/24 - pt seems to be on the mend physically and emotionally - still have nursing check in re ? dissocation with si 01/30/23- Denies SI today Reports RLS, probably akathesia, increase Benztropine to 0.5 mg tid in trial. For 01/31 BMP 02/02/24: Clonidine 0.1 mg daily prn for evening sx htn Increase Loxapine to 15 mg bid after discussion with OP team. Reason for continued inpatient stay Substantial Risk for: rapid decompensation Time Spent With Patient Time: Total time managing care of this patient today ____ minutes.
[2024-02-02 12:38] LABS: Glucose, Whole Blood 123 mg/dL (60-115)
[2024-02-02 14:39] VITALS: BP 151/88; PULSE 78
[2024-02-02 17:11] LABS: Glucose, Whole Blood 97 mg/dL (60-115)
[2024-02-02 20:00] VITALS: BP 130/78; PULSE 79; RESP 16; TEMP 36.3; O2SAT 95
[2024-02-02 21:12] VITALS: BP 130/78; PULSE 79
[2024-02-02] MEDS: Mirabegron 25 MG TAB.ER.24H PO (21:12)
[2024-02-02 21:35] LABS: Glucose, Whole Blood 122 mg/dL (60-115)
[2024-02-03] MEDS: Acetaminophen 325 MG TABLET 975 MG PO ×3 (03:42→21:29)
[2024-02-03 07:00] VITALS: BMI 36.1
[2024-02-03 08:00] VITALS: BP 149/86; PULSE 85; RESP 16; TEMP 35.8; O2SAT 95
[2024-02-03 08:40] LABS: Glucose, Whole Blood 147 mg/dL (60-115)
[2024-02-03] MEDS: Fluticasone Propionate 100 MCG BLST.W.DEV 1 PUFF INHALE ×2 (09:08→21:24)
[2024-02-03] MEDS: Atorvastatin Calcium 20 MG TABLET PO (09:09)
[2024-02-03] MEDS: NaPROXEN 500 MG TABLET PO ×2 (09:09→21:27)
[2024-02-03] MEDS: Gabapentin 400 MG CAPSULE PO ×2 (09:09→21:27)
[2024-02-03] MEDS: Memantine HCl 10 MG TABLET PO ×2 (09:09→21:30)
[2024-02-03] MEDS: Benztropine Mesylate 0.5 MG TABLET PO ×3 (09:09→21:30)
[2024-02-03] MEDS: clonazePAM 0.5 MG TABLET PO ×3 (09:10→21:26)
[2024-02-03] MEDS: Empagliflozin 10 MG TABLET PO (09:10)
[2024-02-03] MEDS: Propranolol HCL 20 MG TABLET PO ×3 (09:10→21:27)
[2024-02-03] MEDS: Meclizine HCl 25 MG TABLET PO (09:11)
[2024-02-03] MEDS: Miconazole Nitrate 2% Powder 85 GM Bottle 1 APPL TOPICAL ×2 (09:40→22:08)
[2024-02-03] MEDS: Cyclobenzaprine HCl 5 MG TABLET PO ×3 (09:46→21:28)
--- NOTE | 2024-02-03 11:55 | P.PNPSI_ITS ---
Subjective Subjective Date of Service: 02/03/24 Reason For Visit: bipolar disorder, PTSD Subjective Notes: Conditional Voluntary Healthcare Proxy: No Guardianship: No Medical Problems Affecting Mental Status: No Interim History: Asking to discharge as activity on the unit is high, overstimulating for pt. Discussed recent increase in Loxapine and need to monitor sx for a few days. Pt agrees. We will attempt to have her discharged on 02/06 if her weekend goes well. Team reports pt slept seven hours. Pt reports she slept well. Team reports pt was upset regarding increase in Loxapine. Discussed consult with Dr. Guerrero and not being able to add anticonvulsants to regime. Discussed probable etiology for sx being increase use of inhaler and steroids to manage asthma and possiblity of being able to decrease Loxapine once she is stabilized again. Verbalized understanding and states she is comfortable with the change. Medication Compliance: Yes Side effects from medications: No Attending Groups: Yes Review of Systems Acute medical concerns: No Medical Review of Systems: unchanged Review of Systems Review of Systems Yes all other systems are reviewed and are negative Mental Status Exam Mental Status Exam Patient Appearance: Appropriate Patient Orientation: Person, Place and Situation Level of Consciousness: Alert Patient Behavior: Appropriate, Talkative, Cooperative, Distractible and Good Eye Contact Mood Description: Cheerful and Expansive Affect Description: Expansive Patient Cognition Impaired: Yes Ability to Follow Directions: Good Speech Pattern: Spontaneous Speech Memory Description: Remote Impaired and Episodic Impaired Hallucinations: None (denies) Delusions: Grandiose (mild) Thought Process: Racing and Goal Oriented Thought Content: positive for Racing, positive for [place], positive for Circumstantial, positive for Goal Oriented and positive for Suicidal Ideation ( It is gone, isn't that great? ) Depressive Symptoms: Thoughts of /Suicide (denies) Judgement: Fair Diagnostics Vital Signs (24Hr): Vital Signs - 24 hr 02/02/24 14:39 02/02/24 20:00 02/02/24 21:12 Temperature 97.4 F Pulse Rate 78 79 79 Respiratory Rate 16 Blood Pressure 151/88 H 130/78 130/78 Pulse Oximetry 95 Oxygen Delivery Method Room Air 02/03/24 08:00 Temperature 96.4 F L Pulse Rate 85 Respiratory Rate 16 Blood Pressure 149/86 H Pulse Oximetry 95 Oxygen Delivery Method Room Air BMI result Body Mass Index 36.1 Labs 02/01/24 07:36 Labs: Laboratory Results - last 48 hr 02/01/24 02/01/24 02/02/24 17:30 21:06 08:32 POC Glucose 104 124 H 106 02/02/24 02/02/24 02/02/24 12:30 17:07 21:22 POC Glucose 123 H 97 122 H 02/03/24 08:35 POC Glucose 147 H Medications Medications Current Medications Acetaminophen (Acetaminophen 325 Mg Tablet) 975 mg PO Q6H PRN PRN Reason: Pain, Moderate(Pain Scale 4-6) Last Admin: 02/03/24 09:46 Dose: 975 mg Albuterol Sulfate (Albuterol Sulfate 90 Mcg 8 Gm Inhaler) 2 puff INHALE Q6H PRN PRN Reason: shortness of breath or wheezing Atorvastatin Calcium (Atorvastatin Calcium 20 Mg Tablet) 20 mg PO DAILY [facility] Last Admin: 02/03/24 09:09 Dose: 20 mg Benzonatate (Benzonatate 100 Mg Capsule) 100 mg PO TID PRN PRN Reason: Cough Benztropine Mesylate (Benztropine Mesylate 0.5 Mg Tablet) 0.5 mg PO TID [facility] Last Admin: 02/03/24 09:09 Dose: 0.5 mg Clonazepam (Clonazepam 0.5 Mg Tablet) 0.5 mg PO BID [facility] Last Admin: 02/03/24 09:10 Dose: 0.5 mg Clonazepam (Clonazepam 0.5 Mg Tablet) 0.5 mg PO DAILY PRN PRN Reason: Anxiety Last Admin: 01/31/24 02:44 Dose: 0.5 mg Clonidine HCl (Clonidine Hcl 0.1 Mg Tablet) 0.1 mg PO DAILY PRN; Protocol PRN Reason: htn Cyclobenzaprine HCl (Cyclobenzaprine Hcl 5 Mg Tablet) 5 mg PO TID PRN PRN Reason: muscle spasm Last Admin: 02/03/24 09:46 Dose: 5 mg Empagliflozin (Empagliflozin 10 Mg Tablet) 10 mg PO DAILY [facility] Last Admin: 02/03/24 09:10 Dose: 10 mg Fluticasone Propionate (Fluticasone Propionate 100 Mcg Blst.W.Dev) 1 puff INHALE RBID [facility] Last Admin: 02/03/24 09:08 Dose: 1 puff Gabapentin (Gabapentin 400 Mg Capsule) 400 mg PO BID [facility] Last Admin: 02/03/24 09:09 Dose: 400 mg Glucose (Glucose Gel 15 Gm Gel..Gram.) 15 gm PO Q15M PRN; Protocol PRN Reason: per Hypoglycemia Standing Ord. Insulin Human Lispro (Insulin Lispro 100 Unit/Ml 3 Ml Vial) 0 unit SUBCUT QIDACHS [facility]; Protocol Last Admin: 02/03/24 09:12 Dose: Not Given Meclizine HCl (Meclizine Hcl 25 Mg Tablet) 25 mg PO DAILY [facility] Last Admin: 02/03/24 09:11 Dose: 25 mg Melatonin (Melatonin 3 Mg Tablet) 6 mg PO BEDTIME PRN PRN Reason: Insomnia Last Admin: 01/29/24 22:14 Dose: 6 mg Memantine (Memantine Hcl 10 Mg Tablet) 10 mg PO BID [facility] Last Admin: 02/03/24 09:09 Dose: 10 mg Miconazole Nitrate (Miconazole Nitrate 2% Powder 85 Gm Bottle) 1 appl TOPICAL BID [facility]; Protocol Last Admin: 02/03/24 09:40 Dose: 1 appl Mirabegron (Mirabegron 25 Mg Tab.Er.24h) 25 mg PO BEDTIME [facility] Last Admin: 02/02/24 21:12 Dose: 25 mg Naproxen (Naproxen 500 Mg Tablet) 500 mg PO BID [facility] Last Admin: 02/03/24 09:09 Dose: 500 mg Pt Own (Darifenacin (7.5 Mg)) 7.5 mg PO DAILY [facility] Last Admin: 02/03/24 09:38 Dose: 7.5 mg Pt Own (Mounjaro 5 (Mg)) 5 mg SUBCUT Mo [facility] Last Admin: 01/31/24 09:49 Dose: 5 mg Patient Own ( (Loxapine 10 Mg)) 10 mg PO BID [facility] Last Admin: 02/03/24 10:34 Dose: 10 mg Patient Own ( (Loxapine 5 Mg)) 5 mg PO BID [facility] Last Admin: 02/03/24 10:35 Dose: 5 mg Propranolol HCl (Propranolol Hcl 20 Mg Tablet) 20 mg PO TID [facility]; Protocol Last Admin: 02/03/24 09:10 Dose: 20 mg Allergies Allergies Allergy/AdvReac Type Severity Reaction Status Date / Time haloperidol [HALOPERIDOL] Allergy Intermediate SWELLING Verified 01/27/24 11:16 carbamazepine [From Tegretol] Allergy Mild RASH, Verified 01/27/24 11:16 TREMORS lithium [[place]] Allergy Mild RASH, Verified 01/27/24 11:16 CRAWLING OUT OF SKIN olanzapine [From Zyprexa] Allergy Mild RICHARD Verified 01/27/24 11:16 quetiapine [From Seroquel] Allergy Mild SWELLING Verified 01/27/24 11:16 WHOLE BODY, RICHARD topiramate [From TOPAMAX] Allergy Unknown RICHARD, SI Verified 01/27/24 11:16 trazodone [TRAZODONE] Allergy Unknown SYNCOPE Verified 01/27/24 11:16 aripiprazole [From ABILIFY] AdvReac Severe EXTREME SI Verified 01/27/24 11:16 amlodipine AdvReac Intermediate leg Verified 01/27/24 11:16 swelling empagliflozin AdvReac Intermediate facial rash Verified 01/27/24 11:16 [From Jardiance] metformin AdvReac Intermediate Diarrhea Verified 01/27/24 11:16 pioglitazone AdvReac Intermediate leg Verified 01/27/24 11:16 swelling lamotrigine [From Lamictal] AdvReac Mild RICHARD Verified 01/27/24 11:16 modafinil [From Provigil] AdvReac Mild RICHARD Verified 01/27/24 11:16 ALL ANTI DEPRESSENTS Allergy Unknown I GO Uncoded 01/27/24 11:16 MANIC All anti-depressants Allergy Unknown manic, rash Uncoded 01/27/24 11:16 From GEODON Allergy Unknown LETHARGY Uncoded 01/27/24 11:16 From WELLBUTRIN AdvReac Unknown AGITATION, Uncoded 01/27/24 11:16 MAVIS Assessment & Plan Assessment & Plan (1) Hyponatremia: Status: Acute Code(s): E87.1 - Hypo-osmolality and hyponatremia Assessment and Plan: recent hyper kalemia- still low sodium hydrochlorathiazide dced 01/30/24- Na up to 134 from 132 K+ stable at moment 4.9 (2) Post traumatic stress disorder (PTSD): Status: Acute Code(s): F43.10 - Post-traumatic stress disorder, unspecified Assessment and Plan: hx of trauma in childhood 01/30/24 still some co dissociationwith si, but not reporting this to nursing (3) Schizoaffective disorder, bipolar type: Status: Acute Code(s): F25.0 - Schizoaffective disorder, bipolar type Assessment and Plan: some rcihard s/p prednisone Plan continue loxapine and clonazepam for psych watch for sundowning re ? [facility]CI 01/30/24 - pt seems to be on the mend physically and emotionally - still have nursing check in re ? dissocation with si 01/30/23- Denies SI today Reports RLS, probably akathesia, increase Benztropine to 0.5 mg tid in trial. For 01/31 BMP 02/02/24: Clonidine 0.1 mg daily prn for evening sx htn Increase Loxapine to 15 mg bid after discussion with OP team. 02/03/24: Continue current regime. Patient educated on: medication risk/benefits and therapeutic strategies Reason for continued inpatient stay Substantial Risk for: rapid decompensation Time Spent With Patient Time: Total time managing care of this patient today ____ minutes.
[2024-02-03 12:28] LABS: Glucose, Whole Blood 114 mg/dL (60-115)
[2024-02-03 17:58] LABS: Glucose, Whole Blood 108 mg/dL (60-115)
[2024-02-03 20:00] VITALS: BP 149/86; PULSE 85; RESP 17; TEMP 35.8; O2SAT 95
[2024-02-03 21:25] LABS: Glucose, Whole Blood 116 mg/dL (60-115)
[2024-02-03] MEDS: Mirabegron 25 MG TAB.ER.24H PO (21:26)
[2024-02-03] MEDS: Melatonin 3 MG TABLET 6 MG PO (21:35)
[2024-02-04] MEDS: Acetaminophen 325 MG TABLET 975 MG PO ×2 (03:19→14:05)
[2024-02-04 08:00] VITALS: BP 151/89; PULSE 77; RESP 16; TEMP 36.2; O2SAT 95
[2024-02-04 08:25] LABS: Glucose, Whole Blood 137 mg/dL (60-115)
[2024-02-04] MEDS: Fluticasone Propionate 100 MCG BLST.W.DEV 1 PUFF INHALE ×2 (09:21→21:46)
[2024-02-04] MEDS: Atorvastatin Calcium 20 MG TABLET PO (09:22)
[2024-02-04] MEDS: NaPROXEN 500 MG TABLET PO ×2 (09:22→22:01)
[2024-02-04] MEDS: Meclizine HCl 25 MG TABLET PO (09:23)
[2024-02-04] MEDS: Benztropine Mesylate 0.5 MG TABLET PO ×3 (09:23→22:01)
[2024-02-04] MEDS: Memantine HCl 10 MG TABLET PO ×2 (09:23→22:00)
[2024-02-04] MEDS: Gabapentin 400 MG CAPSULE PO ×2 (09:24→22:00)
[2024-02-04] MEDS: Empagliflozin 10 MG TABLET PO (09:24)
[2024-02-04] MEDS: Propranolol HCL 20 MG TABLET PO ×3 (09:25→22:01)
[2024-02-04] MEDS: clonazePAM 0.5 MG TABLET PO ×2 (09:25→22:00)
[2024-02-04] MEDS: Cyclobenzaprine HCl 5 MG TABLET PO ×2 (09:41→22:00)
[2024-02-04] MEDS: Miconazole Nitrate 2% Powder 85 GM Bottle 1 APPL TOPICAL ×2 (09:41→22:02)
--- NOTE | 2024-02-04 10:47 | HO.PSYCHPN ---
Subjective Subjective Date of Service: 02/04/24 Reason For Visit: bipolar disorder, PTSD Subjective Notes: Conditional Voluntary Healthcare Proxy: No Guardianship: No Medical Problems Affecting Mental Status: No Interim History: Visable in milieu, social with peers and team, engaged. Continues to ask for discharge. Message left for pt's daughterShasta to review OP team recommendations, recent med change, potential discharge for 02/06 if the weekend goes well Pt reports she is feeling well. Later in the day, team report pt has a bruise on her left arm. She reports she was not aware how this occurred. Medication Compliance: Yes Side effects from medications: No Attending Groups: Yes Review of Systems Acute medical concerns: No Medical Review of Systems: unchanged Review of Systems Review of Systems Yes all other systems are reviewed and are negative Mental Status Exam Mental Status Exam Patient Appearance: Appropriate Patient Orientation: Person, Place, Time and Situation Level of Consciousness: Alert Patient Behavior: Appropriate, Talkative, Cooperative and Good Eye Contact Mood Description: Appropriate Affect Description: Appropriate Patient Cognition Impaired: No Ability to Follow Directions: Good Speech Pattern: Spontaneous Speech Memory Description: Remote Impaired Hallucinations: None Delusions: Not Present Thought Process: Distracted and Goal Oriented Thought Content: positive for Circumstantial and positive for Goal Oriented Abnormal Motor Activity Signs and Symptoms: Restlessness Judgement: Fair Diagnostics Vital Signs (24Hr): Vital Signs - 24 hr 02/03/24 20:00 02/04/24 08:00 Temperature 96.4 F L 97.1 F Pulse Rate 85 77 Respiratory Rate 17 16 Blood Pressure 149/86 H 151/89 H Pulse Oximetry 95 95 Oxygen Delivery Method Room Air Room Air BMI result Body Mass Index 36.1 Labs 02/01/24 07:36 Labs: Laboratory Results - last 48 hr 02/02/24 02/02/24 02/02/24 12:30 17:07 21:22 POC Glucose 123 H 97 122 H 02/03/24 02/03/24 02/03/24 08:35 12:17 17:54 POC Glucose 147 H 114 108 02/03/24 02/04/24 21:22 08:11 POC Glucose 116 H 137 H Medications Medications Current Medications Acetaminophen (Acetaminophen 325 Mg Tablet) 975 mg PO Q6H PRN PRN Reason: Pain, Moderate(Pain Scale 4-6) Last Admin: 02/04/24 03:19 Dose: 975 mg Albuterol Sulfate (Albuterol Sulfate 90 Mcg 8 Gm Inhaler) 2 puff INHALE Q6H PRN PRN Reason: shortness of breath or wheezing Atorvastatin Calcium (Atorvastatin Calcium 20 Mg Tablet) 20 mg PO DAILY [facility] Last Admin: 02/04/24 09:22 Dose: 20 mg Benzonatate (Benzonatate 100 Mg Capsule) 100 mg PO TID PRN PRN Reason: Cough Benztropine Mesylate (Benztropine Mesylate 0.5 Mg Tablet) 0.5 mg PO TID [facility] Last Admin: 02/04/24 09:23 Dose: 0.5 mg Clonazepam (Clonazepam 0.5 Mg Tablet) 0.5 mg PO BID [facility] Last Admin: 02/04/24 09:25 Dose: 0.5 mg Clonazepam (Clonazepam 0.5 Mg Tablet) 0.5 mg PO DAILY PRN PRN Reason: Anxiety Last Admin: 02/03/24 14:20 Dose: 0.5 mg Clonidine HCl (Clonidine Hcl 0.1 Mg Tablet) 0.1 mg PO DAILY PRN; Protocol PRN Reason: htn Cyclobenzaprine HCl (Cyclobenzaprine Hcl 5 Mg Tablet) 5 mg PO TID PRN PRN Reason: muscle spasm Last Admin: 02/04/24 09:41 Dose: 5 mg Empagliflozin (Empagliflozin 10 Mg Tablet) 10 mg PO DAILY [facility] Last Admin: 02/04/24 09:24 Dose: 10 mg Fluticasone Propionate (Fluticasone Propionate 100 Mcg Blst.W.Dev) 1 puff INHALE RBID [facility] Last Admin: 02/04/24 09:21 Dose: 1 puff Gabapentin (Gabapentin 400 Mg Capsule) 400 mg PO BID [facility] Last Admin: 02/04/24 09:24 Dose: 400 mg Glucose (Glucose Gel 15 Gm Gel..Gram.) 15 gm PO Q15M PRN; Protocol PRN Reason: per Hypoglycemia Standing Ord. Insulin Human Lispro (Insulin Lispro 100 Unit/Ml 3 Ml Vial) 0 unit SUBCUT QIDACHS [facility]; Protocol Last Admin: 02/04/24 08:38 Dose: Not Given Meclizine HCl (Meclizine Hcl 25 Mg Tablet) 25 mg PO DAILY [facility] Last Admin: 02/04/24 09:23 Dose: 25 mg Melatonin (Melatonin 3 Mg Tablet) 6 mg PO BEDTIME PRN PRN Reason: Insomnia Last Admin: 02/03/24 21:35 Dose: 6 mg Memantine (Memantine Hcl 10 Mg Tablet) 10 mg PO BID [facility] Last Admin: 02/04/24 09:23 Dose: 10 mg Miconazole Nitrate (Miconazole Nitrate 2% Powder 85 Gm Bottle) 1 appl TOPICAL BID [facility]; Protocol Last Admin: 02/04/24 09:41 Dose: 1 appl Mirabegron (Mirabegron 25 Mg Tab.Er.24h) 25 mg PO BEDTIME T[facility] Last Admin: 02/03/24 21:26 Dose: 25 mg Naproxen (Naproxen 500 Mg Tablet) 500 mg PO BID [facility] Last Admin: 02/04/24 09:22 Dose: 500 mg Pt Own (Darifenacin (7.5 Mg)) 7.5 mg PO DAILY [facility] Last Admin: 02/04/24 09:25 Dose: 7.5 mg Pt Own (Mounjaro 5 (Mg)) 5 mg SUBCUT Mo [facility] Last Admin: 01/31/24 09:49 Dose: 5 mg Patient Own ( (Loxapine 10 Mg)) 10 mg PO BID [facility] Last Admin: 02/04/24 09:26 Dose: 10 mg Patient Own ( (Loxapine 5 Mg)) 5 mg PO BID [facility] Last Admin: 02/04/24 09:26 Dose: 5 mg Propranolol HCl (Propranolol Hcl 20 Mg Tablet) 20 mg PO TID [facility]; Protocol Last Admin: 02/04/24 09:25 Dose: 20 mg Allergies Allergies Allergy/AdvReac Type Severity Reaction Status Date / Time haloperidol [HALOPERIDOL] Allergy Intermediate SWELLING Verified 01/27/24 11:16 carbamazepine [From Tegretol] Allergy Mild RASH, Verified 01/27/24 11:16 TREMORS lithium [[place]] Allergy Mild RASH, Verified 01/27/24 11:16 CRAWLING OUT OF SKIN olanzapine [From Zyprexa] Allergy Mild KAILASH Verified 01/27/24 11:16 quetiapine [From Seroquel] Allergy Mild SWELLING Verified 01/27/24 11:16 WHOLE BODY, KAILASH topiramate [From TOPAMAX] Allergy Unknown KAILASH, SI Verified 01/27/24 11:16 trazodone [TRAZODONE] Allergy Unknown SYNCOPE Verified 01/27/24 11:16 aripiprazole [From ABILIFY] AdvReac Severe EXTREME SI Verified 01/27/24 11:16 amlodipine AdvReac Intermediate leg Verified 01/27/24 11:16 swelling empagliflozin AdvReac Intermediate facial rash Verified 01/27/24 11:16 [From Jardiance] metformin AdvReac Intermediate Diarrhea Verified 01/27/24 11:16 pioglitazone AdvReac Intermediate leg Verified 01/27/24 11:16 swelling lamotrigine [From Lamictal] AdvReac Mild KAILASH Verified 01/27/24 11:16 modafinil [From Provigil] AdvReac Mild KAILASH Verified 01/27/24 11:16 ALL ANTI DEPRESSENTS Allergy Unknown I GO Uncoded 01/27/24 11:16 MANIC All anti-depressants Allergy Unknown manic, rash Uncoded 01/27/24 11:16 From GEODON Allergy Unknown LETHARGY Uncoded 01/27/24 11:16 From WELLBUTRIN AdvReac Unknown AGITATION, Uncoded 01/27/24 11:16 MAVIS Assessment & Plan Assessment & Plan (1) Hyponatremia: Status: Acute Code(s): E87.1 - Hypo-osmolality and hyponatremia Assessment and Plan: recent hyper kalemia- still low sodium hydrochlorathiazide dced 01/30/24- Na up to 134 from 132 K+ stable at moment 4.9 (2) Post traumatic stress disorder (PTSD): Status: Acute Code(s): F43.10 - Post-traumatic stress disorder, unspecified Assessment and Plan: hx of trauma in childhood 01/30/24 still some co dissociationwith si, but not reporting this to nursing (3) Schizoaffective disorder, bipolar type: Status: Acute Code(s): F25.0 - Schizoaffective disorder, bipolar type Assessment and Plan: some kailash s/p prednisone Plan continue loxapine and clonazepam for psych watch for sundowning re ? MCI 01/30/24 - pt seems to be on the mend physically and emotionally - still have nursing check in re ? dissocation with si 01/30/23- Denies SI today Reports RLS, probably akathesia, increase Benztropine to 0.5 mg tid in trial. For 01/31 BMP 02/02/24: Clonidine 0.1 mg daily prn for evening sx htn Increase Loxapine to 15 mg bid after discussion with OP team. 02/04/24: Continue current regime Reason for continued inpatient stay Substantial Risk for: rapid decompensation Time Spent With Patient Time: Total time managing care of this patient today ____ minutes.
[2024-02-04 12:30] LABS: Glucose, Whole Blood 112 mg/dL (60-115)
[2024-02-04 14:06] VITALS: BP 110/71
[2024-02-04 17:37] LABS: Glucose, Whole Blood 169 mg/dL (60-115)
[2024-02-04 18:50] VITALS: BP 172/87
[2024-02-04] MEDS: cloNIDine HCL 0.1 MG TABLET PO (18:50)
[2024-02-04 19:49] VITALS: BP 144/72; PULSE 69
[2024-02-04 20:00] VITALS: BP 177/100; PULSE 83; RESP 18; TEMP 36.6; O2SAT 96
[2024-02-04 20:56] LABS: Glucose, Whole Blood 101 mg/dL (60-115)
[2024-02-04] MEDS: Mirabegron 25 MG TAB.ER.24H PO (22:00)
[2024-02-04 22:01] VITALS: BP 177/100; PULSE 83
[2024-02-04] MEDS: Melatonin 3 MG TABLET 6 MG PO (22:32)
[2024-02-05] MEDS: Acetaminophen 325 MG TABLET 975 MG PO ×3 (03:46→22:50)
[2024-02-05 08:00] VITALS: BP 123/81; PULSE 75; RESP 16; TEMP 36.4; O2SAT 97
[2024-02-05 08:24] LABS: Glucose, Whole Blood 108 mg/dL (60-115)
[2024-02-05] MEDS: Fluticasone Propionate 100 MCG BLST.W.DEV 1 PUFF INHALE ×2 (08:28→20:25)
[2024-02-05] MEDS: Gabapentin 400 MG CAPSULE PO ×2 (08:31→20:30)
[2024-02-05] MEDS: NaPROXEN 500 MG TABLET PO ×2 (08:31→20:30)
[2024-02-05] MEDS: Memantine HCl 10 MG TABLET PO ×2 (08:32→20:32)
[2024-02-05] MEDS: Atorvastatin Calcium 20 MG TABLET PO (08:32)
[2024-02-05] MEDS: Meclizine HCl 25 MG TABLET PO (08:33)
[2024-02-05] MEDS: Propranolol HCL 20 MG TABLET PO ×3 (08:33→20:34)
[2024-02-05] MEDS: Empagliflozin 10 MG TABLET PO (08:33)
[2024-02-05] MEDS: Benztropine Mesylate 0.5 MG TABLET PO ×3 (08:34→20:32)
[2024-02-05] MEDS: clonazePAM 0.5 MG TABLET PO ×2 (08:35→20:33)
[2024-02-05] MEDS: Miconazole Nitrate 2% Powder 85 GM Bottle 1 APPL TOPICAL ×2 (08:39→20:25)
[2024-02-05] MEDS: Cyclobenzaprine HCl 5 MG TABLET PO ×3 (08:45→20:33)
--- NOTE | 2024-02-05 11:20 | HO.PSYCHPN ---
Subjective Subjective Date of Service: 02/05/24 Reason For Visit: bipolar disorder, PTSD Interim History: Met with patient; discussed with team; reviewed chart Patient friendly, appropriate, reports that she is doing well and looking forward to discharging on Wednesday. She shows medical writer a bruise on the posterior portion of her left arm and is not sure how she got it; it has a little tender to palpation but not excessively so. She has similar bruise at antecubital fossa where blood draw occurs. Patient will alert staff if any further bruising appears. Mental Status Exam Mental Status Exam Patient Appearance: Appropriate Patient Orientation: Person, Place, Time and Situation Level of Consciousness: Alert Patient Behavior: Appropriate, Talkative, Cooperative and Good Eye Contact Mood Description: Appropriate Affect Description: Appropriate Patient Cognition Impaired: No Ability to Follow Directions: Good Speech Pattern: Clear and Spontaneous Speech Memory Description: Remote Impaired Hallucinations: None Delusions: Not Present Thought Process: Distracted and Goal Oriented Thought Content: positive for Circumstantial and positive for Goal Oriented Judgement: Fair Judgement and Insight: Fair Diagnostics Vital Signs (24Hr): Vital Signs - 24 hr 02/04/24 14:06 02/04/24 18:50 02/04/24 19:49 Temperature Pulse Rate 69 Respiratory Rate Blood Pressure 110/71 172/87 H 144/72 H Pulse Oximetry Oxygen Delivery Method 02/04/24 20:00 02/04/24 22:01 02/05/24 08:00 Temperature 98 F 97.6 F Pulse Rate 83 83 75 Respiratory Rate 18 16 Blood Pressure 177/100 H 177/100 H 123/81 Pulse Oximetry 96 97 Oxygen Delivery Method Room Air Room Air BMI result Body Mass Index 36.1 Labs 02/01/24 07:36 Labs: Laboratory Results - last 48 hr 02/03/24 02/03/24 02/03/24 12:17 17:54 21:22 POC Glucose 114 108 116 H 02/04/24 02/04/24 02/04/24 08:11 12:24 17:34 POC Glucose 137 H 112 169 H 02/04/24 02/05/24 20:52 08:14 POC Glucose 101 108 Medications Medications Current Medications Acetaminophen (Acetaminophen 325 Mg Tablet) 975 mg PO Q6H PRN PRN Reason: Pain, Moderate(Pain Scale 4-6) Last Admin: 02/05/24 03:46 Dose: 975 mg Albuterol Sulfate (Albuterol Sulfate 90 Mcg 8 Gm Inhaler) 2 puff INHALE Q6H PRN PRN Reason: shortness of breath or wheezing Atorvastatin Calcium (Atorvastatin Calcium 20 Mg Tablet) 20 mg PO DAILY [facility] Last Admin: 02/05/24 08:32 Dose: 20 mg Benzonatate (Benzonatate 100 Mg Capsule) 100 mg PO TID PRN PRN Reason: Cough Benztropine Mesylate (Benztropine Mesylate 0.5 Mg Tablet) 0.5 mg PO TID [facility] Last Admin: 02/05/24 08:34 Dose: 0.5 mg Clonazepam (Clonazepam 0.5 Mg Tablet) 0.5 mg PO BID [facility] Last Admin: 02/05/24 08:35 Dose: 0.5 mg Clonazepam (Clonazepam 0.5 Mg Tablet) 0.5 mg PO DAILY PRN PRN Reason: Anxiety Last Admin: 02/03/24 14:20 Dose: 0.5 mg Clonidine HCl (Clonidine Hcl 0.1 Mg Tablet) 0.1 mg PO DAILY PRN; Protocol PRN Reason: htn Last Admin: 02/04/24 18:50 Dose: 0.1 mg Cyclobenzaprine HCl (Cyclobenzaprine Hcl 5 Mg Tablet) 5 mg PO TID PRN PRN Reason: muscle spasm Last Admin: 02/05/24 08:45 Dose: 5 mg Empagliflozin (Empagliflozin 10 Mg Tablet) 10 mg PO DAILY [facility] Last Admin: 02/05/24 08:33 Dose: 10 mg Fluticasone Propionate (Fluticasone Propionate 100 Mcg Blst.W.Dev) 1 puff INHALE RBID [facility] Last Admin: 02/05/24 08:28 Dose: 1 puff Gabapentin (Gabapentin 400 Mg Capsule) 400 mg PO BID [facility] Last Admin: 02/05/24 08:31 Dose: 400 mg Glucose (Glucose Gel 15 Gm Gel..Gram.) 15 gm PO Q15M PRN; Protocol PRN Reason: per Hypoglycemia Standing Ord. Insulin Human Lispro (Insulin Lispro 100 Unit/Ml 3 Ml Vial) 0 unit SUBCUT QIDACHS [facility]; Protocol Last Admin: 02/05/24 08:37 Dose: Not Given Meclizine HCl (Meclizine Hcl 25 Mg Tablet) 25 mg PO DAILY [facility] Last Admin: 02/05/24 08:33 Dose: 25 mg Melatonin (Melatonin 3 Mg Tablet) 6 mg PO BEDTIME PRN PRN Reason: Insomnia Last Admin: 02/04/24 22:32 Dose: 6 mg Memantine (Memantine Hcl 10 Mg Tablet) 10 mg PO BID [facility] Last Admin: 02/05/24 08:32 Dose: 10 mg Miconazole Nitrate (Miconazole Nitrate 2% Powder 85 Gm Bottle) 1 appl TOPICAL BID [facility]; Protocol Last Admin: 02/05/24 08:39 Dose: 1 appl Mirabegron (Mirabegron 25 Mg Tab.Er.24h) 25 mg PO BEDTIME [facility] Last Admin: 02/04/24 22:00 Dose: 25 mg Naproxen (Naproxen 500 Mg Tablet) 500 mg PO BID [facility] Last Admin: 02/05/24 08:31 Dose: 500 mg Pt Own (Darifenacin (7.5 Mg)) 7.5 mg PO DAILY [facility] Last Admin: 02/05/24 08:35 Dose: 7.5 mg Pt Own (Mounjaro 5 (Mg)) 5 mg SUBCUT Mo [facility] Last Admin: 01/31/24 09:49 Dose: 5 mg Patient Own ( (Loxapine 10 Mg)) 10 mg PO BID [facility] Last Admin: 02/05/24 08:29 Dose: 10 mg Patient Own ( (Loxapine 5 Mg)) 5 mg PO BID [facility] Last Admin: 02/05/24 08:29 Dose: 5 mg Propranolol HCl (Propranolol Hcl 20 Mg Tablet) 20 mg PO TID [facility]; Protocol Last Admin: 02/05/24 08:33 Dose: 20 mg Allergies Allergies Allergy/AdvReac Type Severity Reaction Status Date / Time haloperidol [HALOPERIDOL] Allergy Intermediate SWELLING Verified 01/27/24 11:16 carbamazepine [From Tegretol] Allergy Mild RASH, Verified 01/27/24 11:16 TREMORS lithium [[place]] Allergy Mild RASH, Verified 01/27/24 11:16 CRAWLING OUT OF SKIN olanzapine [From Zyprexa] Allergy Mild RICHARD Verified 01/27/24 11:16 quetiapine [From Seroquel] Allergy Mild SWELLING Verified 01/27/24 11:16 WHOLE BODY, RICHARD topiramate [From TOPAMAX] Allergy Unknown RICHARD, SI Verified 01/27/24 11:16 trazodone [TRAZODONE] Allergy Unknown SYNCOPE Verified 01/27/24 11:16 aripiprazole [From ABILIFY] AdvReac Severe EXTREME SI Verified 01/27/24 11:16 amlodipine AdvReac Intermediate leg Verified 01/27/24 11:16 swelling empagliflozin AdvReac Intermediate facial rash Verified 01/27/24 11:16 [From Jardiance] metformin AdvReac Intermediate Diarrhea Verified 01/27/24 11:16 pioglitazone AdvReac Intermediate leg Verified 01/27/24 11:16 swelling lamotrigine [From Lamictal] AdvReac Mild RICHARD Verified 01/27/24 11:16 modafinil [From Provigil] AdvReac Mild RICHARD Verified 01/27/24 11:16 ALL ANTI DEPRESSENTS Allergy Unknown I GO Uncoded 01/27/24 11:16 MANIC All anti-depressants Allergy Unknown manic, rash Uncoded 01/27/24 11:16 From GEODON Allergy Unknown LETHARGY Uncoded 01/27/24 11:16 From WELLBUTRIN AdvReac Unknown AGITATION, Uncoded 01/27/24 11:16 MAVIS Assessment & Plan Assessment & Plan (1) Hyponatremia: Status: Resolved Code(s): E87.1 - Hypo-osmolality and hyponatremia Assessment and Plan: recent hyper kalemia- still low sodium hydrochlorathiazide dced 01/30/24- Na up to 134 from 132 K+ stable at moment 4.9 (2) Post traumatic stress disorder (PTSD): Status: Acute Code(s): F43.10 - Post-traumatic stress disorder, unspecified Assessment and Plan: hx of trauma in childhood 01/30/24 still some co dissociationwith si, but not reporting this to nursing (3) Schizoaffective disorder, bipolar type: Status: Acute Code(s): F25.0 - Schizoaffective disorder, bipolar type Assessment and Plan: some richard s/p prednisone Plan continue loxapine and clonazepam for psych watch for sundowning re ? MCI 01/30/24 - pt seems to be on the mend physically and emotionally - still have nursing check in re ? dissocation with si 01/30/23- Denies SI today Reports RLS, probably akathesia, increase Benztropine to 0.5 mg tid in trial. For 01/31 BMP 02/02/24: Clonidine 0.1 mg daily prn for evening sx htn Increase Loxapine to 15 mg bid after discussion with OP team. 02/04/24: Continue current regime 02/04 patient pleasant calm, appropriate, getting along well with peers and staff in good behavioral control. Continue current treatment regimen Patient educated on: diagnosis, medication risk/benefits and medical condition Informed Consent: understands Reason for continued inpatient stay Substantial Risk for: stable for discharge Time Spent With Patient Time: Total time managing care of this patient today ____ minutes.
[2024-02-05 12:41] LABS: Glucose, Whole Blood 99 mg/dL (60-115)
[2024-02-05 14:47] VITALS: BP 138/78
[2024-02-05 17:16] LABS: Glucose, Whole Blood 101 mg/dL (60-115)
[2024-02-05 20:00] VITALS: BP 114/72; PULSE 69; RESP 20; TEMP 36.2; O2SAT 97
[2024-02-05 20:12] LABS: Glucose, Whole Blood 100 mg/dL (60-115)
[2024-02-05 20:31] VITALS: BP 114/72
[2024-02-05] MEDS: cloNIDine HCL 0.1 MG TABLET PO (20:31)
[2024-02-05] MEDS: Mirabegron 25 MG TAB.ER.24H PO (20:32)
[2024-02-05 20:34] VITALS: BP 114/72; PULSE 69
[2024-02-05] MEDS: Melatonin 3 MG TABLET 6 MG PO (20:36)
[2024-02-06 07:45] VITALS: BP 153/70; PULSE 65; RESP 16; TEMP 36.8; O2SAT 96
[2024-02-06] MEDS: Fluticasone Propionate 100 MCG BLST.W.DEV 1 PUFF INHALE ×2 (08:07→22:36)
[2024-02-06] MEDS: Cyclobenzaprine HCl 5 MG TABLET PO ×3 (08:10→22:33)
[2024-02-06] MEDS: Benztropine Mesylate 0.5 MG TABLET PO ×3 (08:11→22:36)
[2024-02-06] MEDS: Empagliflozin 10 MG TABLET PO (08:11)
[2024-02-06] MEDS: NaPROXEN 500 MG TABLET PO ×2 (08:12→22:35)
[2024-02-06] MEDS: Propranolol HCL 20 MG TABLET PO ×3 (08:12→22:32)
[2024-02-06] MEDS: Atorvastatin Calcium 20 MG TABLET PO (08:13)
[2024-02-06] MEDS: Memantine HCl 10 MG TABLET PO ×2 (08:13→22:34)
[2024-02-06] MEDS: Meclizine HCl 25 MG TABLET PO (08:14)
[2024-02-06] MEDS: Gabapentin 400 MG CAPSULE PO ×2 (08:15→22:34)
[2024-02-06 08:16] LABS: Glucose, Whole Blood 99 mg/dL (60-115)
[2024-02-06] MEDS: clonazePAM 0.5 MG TABLET PO ×2 (08:16→22:34)
--- NOTE | 2024-02-06 09:11 | P.PNPSI_ITS ---
Subjective Subjective Date of Service: 02/06/24 Reason For Visit: bipolar disorder, PTSD Interim History: Met with patient; discussed with team She reports she is doing well and told the nurse today I am not grandiose... No hallucinations... Patient looking forward to discharging tomorrow Mental Status Exam Mental Status Exam Patient Appearance: Appropriate Patient Orientation: Person, Place, Time and Situation Level of Consciousness: Alert Patient Behavior: Appropriate, Talkative, Cooperative and Good Eye Contact Mood Description: Appropriate Affect Description: Appropriate Patient Cognition Impaired: No Ability to Follow Directions: Good Speech Pattern: Clear and Spontaneous Speech Memory Description: Remote Impaired Hallucinations: None Delusions: Not Present Thought Process: Distracted and Goal Oriented Thought Content: positive for Circumstantial and positive for Goal Oriented Judgement: Fair Judgement and Insight: Fair Diagnostics Vital Signs (24Hr): Vital Signs - 24 hr 02/05/24 14:47 02/05/24 20:00 02/05/24 20:31 Temperature 97.2 F Pulse Rate 69 Respiratory Rate 20 Blood Pressure 138/78 114/72 114/72 Pulse Oximetry 97 Oxygen Delivery Method Room Air 02/05/24 20:34 02/06/24 07:45 Temperature 98.3 F Pulse Rate 69 65 Respiratory Rate 16 Blood Pressure 114/72 153/70 H Pulse Oximetry 96 Oxygen Delivery Method Room Air BMI result Body Mass Index 36.1 Labs 02/01/24 07:36 Labs: Laboratory Results - last 48 hr 02/04/24 02/04/24 02/04/24 12:24 17:34 20:52 POC Glucose 112 169 H 101 02/05/24 02/05/24 02/05/24 08:14 12:24 17:06 POC Glucose 108 99 101 02/05/24 02/06/24 20:03 08:07 POC Glucose 100 99 Medications Medications Current Medications Acetaminophen (Acetaminophen 325 Mg Tablet) 975 mg PO Q6H PRN PRN Reason: Pain, Moderate(Pain Scale 4-6) Last Admin: 02/05/24 22:50 Dose: 975 mg Albuterol Sulfate (Albuterol Sulfate 90 Mcg 8 Gm Inhaler) 2 puff INHALE Q6H PRN PRN Reason: shortness of breath or wheezing Atorvastatin Calcium (Atorvastatin Calcium 20 Mg Tablet) 20 mg PO DAILY TARYN Last Admin: 02/06/24 08:13 Dose: 20 mg Benzonatate (Benzonatate 100 Mg Capsule) 100 mg PO TID PRN PRN Reason: Cough Benztropine Mesylate (Benztropine Mesylate 0.5 Mg Tablet) 0.5 mg PO TID [facility] Last Admin: 02/06/24 08:11 Dose: 0.5 mg Clonazepam (Clonazepam 0.5 Mg Tablet) 0.5 mg PO BID [facility] Last Admin: 02/06/24 08:16 Dose: 0.5 mg Clonazepam (Clonazepam 0.5 Mg Tablet) 0.5 mg PO DAILY PRN PRN Reason: Anxiety Last Admin: 02/03/24 14:20 Dose: 0.5 mg Clonidine HCl (Clonidine Hcl 0.1 Mg Tablet) 0.1 mg PO DAILY PRN; Protocol PRN Reason: htn Last Admin: 02/05/24 20:31 Dose: 0.1 mg Cyclobenzaprine HCl (Cyclobenzaprine Hcl 5 Mg Tablet) 5 mg PO TID PRN PRN Reason: muscle spasm Last Admin: 02/06/24 08:10 Dose: 5 mg Empagliflozin (Empagliflozin 10 Mg Tablet) 10 mg PO DAILY [facility] Last Admin: 02/06/24 08:11 Dose: 10 mg Fluticasone Propionate (Fluticasone Propionate 100 Mcg Blst.W.Dev) 1 puff INHALE RBID [facility] Last Admin: 02/06/24 08:07 Dose: 1 puff Gabapentin (Gabapentin 400 Mg Capsule) 400 mg PO BID [facility] Last Admin: 02/06/24 08:15 Dose: 400 mg Glucose (Glucose Gel 15 Gm Gel..Gram.) 15 gm PO Q15M PRN; Protocol PRN Reason: per Hypoglycemia Standing Ord. Insulin Human Lispro (Insulin Lispro 100 Unit/Ml 3 Ml Vial) 0 unit SUBCUT QIDACHS [facility]; Protocol Last Admin: 02/06/24 08:20 Dose: Not Given Meclizine HCl (Meclizine Hcl 25 Mg Tablet) 25 mg PO DAILY [facility] Last Admin: 02/06/24 08:14 Dose: 25 mg Melatonin (Melatonin 3 Mg Tablet) 6 mg PO BEDTIME PRN PRN Reason: Insomnia Last Admin: 02/05/24 20:36 Dose: 6 mg Memantine (Memantine Hcl 10 Mg Tablet) 10 mg PO BID [facility] Last Admin: 02/06/24 08:13 Dose: 10 mg Miconazole Nitrate (Miconazole Nitrate 2% Powder 85 Gm Bottle) 1 appl TOPICAL BID [facility]; Protocol Last Admin: 02/06/24 08:16 Dose: Not Given Mirabegron (Mirabegron 25 Mg Tab.Er.24h) 25 mg PO BEDTIME [facility] Last Admin: 02/05/24 20:32 Dose: 25 mg Naproxen (Naproxen 500 Mg Tablet) 500 mg PO BID [facility] Last Admin: 02/06/24 08:12 Dose: 500 mg Pt Own (Darifenacin (7.5 Mg)) 7.5 mg PO DAILY [facility] Last Admin: 02/06/24 08:09 Dose: 7.5 mg Pt Own (Mounjaro 5 (Mg)) 5 mg SUBCUT Mo [facility] Last Admin: 01/31/24 09:49 Dose: 5 mg Patient Own ( (Loxapine 10 Mg)) 10 mg PO BID [facility] Last Admin: 02/06/24 08:09 Dose: 10 mg Patient Own ( (Loxapine 5 Mg)) 5 mg PO BID [facility] Last Admin: 02/06/24 08:09 Dose: 5 mg Propranolol HCl (Propranolol Hcl 20 Mg Tablet) 20 mg PO TID [facility]; Protocol Last Admin: 02/06/24 08:12 Dose: 20 mg Allergies Allergies Allergy/AdvReac Type Severity Reaction Status Date / Time haloperidol [HALOPERIDOL] Allergy Intermediate SWELLING Verified 01/27/24 11:16 carbamazepine [From Tegretol] Allergy Mild RASH, Verified 01/27/24 11:16 TREMORS lithium [[place]] Allergy Mild RASH, Verified 01/27/24 11:16 CRAWLING OUT OF SKIN olanzapine [From Zyprexa] Allergy Mild RICHARD Verified 01/27/24 11:16 quetiapine [From Seroquel] Allergy Mild SWELLING Verified 01/27/24 11:16 WHOLE BODY, RICHARD topiramate [From TOPAMAX] Allergy Unknown RICHARD, SI Verified 01/27/24 11:16 trazodone [TRAZODONE] Allergy Unknown SYNCOPE Verified 01/27/24 11:16 aripiprazole [From ABILIFY] AdvReac Severe EXTREME SI Verified 01/27/24 11:16 amlodipine AdvReac Intermediate leg Verified 01/27/24 11:16 swelling empagliflozin AdvReac Intermediate facial rash Verified 01/27/24 11:16 [From Jardiance] metformin AdvReac Intermediate Diarrhea Verified 01/27/24 11:16 pioglitazone AdvReac Intermediate leg Verified 01/27/24 11:16 swelling lamotrigine [From Lamictal] AdvReac Mild RICHARD Verified 01/27/24 11:16 modafinil [From Provigil] AdvReac Mild RICHARD Verified 01/27/24 11:16 ALL ANTI DEPRESSENTS Allergy Unknown I GO Uncoded 01/27/24 11:16 MANIC All anti-depressants Allergy Unknown manic, rash Uncoded 01/27/24 11:16 From GEODON Allergy Unknown LETHARGY Uncoded 01/27/24 11:16 From WELLBUTRIN AdvReac Unknown AGITATION, Uncoded 01/27/24 11:16 MAVIS Assessment & Plan Assessment & Plan (1) Hyponatremia: Status: Resolved Code(s): E87.1 - Hypo-osmolality and hyponatremia Assessment and Plan: recent hyper kalemia- still low sodium hydrochlorathiazide dced 01/30/24- Na up to 134 from 132 K+ stable at moment 4.9 (2) Post traumatic stress disorder (PTSD): Status: Acute Code(s): F43.10 - Post-traumatic stress disorder, unspecified Assessment and Plan: hx of trauma in childhood 01/30/24 still some co dissociationwith si, but not reporting this to nursing (3) Schizoaffective disorder, bipolar type: Status: Acute Code(s): F25.0 - Schizoaffective disorder, bipolar type Assessment and Plan: some richard s/p prednisone Plan continue loxapine and clonazepam for psych watch for ing re ? MCI 01/30/24 - pt seems to be on the mend physically and emotionally - still have nursing check in re ? dissocation with si 01/30/23- Denies SI today Reports RLS, probably akathesia, increase Benztropine to 0.5 mg tid in trial. For 01/31 BMP 02/02/24: Clonidine 0.1 mg daily prn for evening sx htn Increase Loxapine to 15 mg bid after discussion with OP team. 02/04/24: Continue current regime 02/04 patient pleasant calm, appropriate, getting along well with peers and staff in good behavioral control. Continue current treatment regimen 02/05 remains doing well, stable, excited about discharge tomorrow Patient educated on: diagnosis Informed Consent: understands Reason for continued inpatient stay Substantial Risk for: stable for discharge Time Spent With Patient Time: Total time managing care of this patient today ____ minutes.
[2024-02-06] MEDS: Acetaminophen 325 MG TABLET 975 MG PO (12:24)
[2024-02-06 12:39] LABS: Glucose, Whole Blood 117 mg/dL (60-115)
[2024-02-06 14:22] VITALS: BP 124/69; PULSE 75
[2024-02-06 16:51] LABS: Glucose, Whole Blood 109 mg/dL (60-115)
[2024-02-06 22:15] VITALS: BP 157/85; PULSE 77; TEMP 36.4; O2SAT 96
[2024-02-06 22:27] LABS: Glucose, Whole Blood 122 mg/dL (60-115)
[2024-02-06] MEDS: Melatonin 3 MG TABLET 6 MG PO (22:31)
[2024-02-06] MEDS: Mirabegron 25 MG TAB.ER.24H PO (22:34)
[2024-02-07] MEDS: Acetaminophen 325 MG TABLET 975 MG PO (04:48)
[2024-02-07 08:00] VITALS: BP 136/86; PULSE 82; RESP 18; TEMP 36.1; O2SAT 97
[2024-02-07 08:23] LABS: Glucose, Whole Blood 124 mg/dL (60-115)
[2024-02-07] MEDS: Empagliflozin 10 MG TABLET PO (08:31)
[2024-02-07 08:32] VITALS: BP 154/106
[2024-02-07] MEDS: Meclizine HCl 25 MG TABLET PO (08:32)
[2024-02-07] MEDS: Atorvastatin Calcium 20 MG TABLET PO (08:32)
[2024-02-07] MEDS: Memantine HCl 10 MG TABLET PO (08:32)
[2024-02-07] MEDS: Propranolol HCL 20 MG TABLET PO (08:32)
[2024-02-07] MEDS: Gabapentin 400 MG CAPSULE PO (08:32)
[2024-02-07] MEDS: Benztropine Mesylate 0.5 MG TABLET PO (08:32)
[2024-02-07] MEDS: NaPROXEN 500 MG TABLET PO (08:32)
[2024-02-07] MEDS: clonazePAM 0.5 MG TABLET PO (08:32)
[2024-02-07] MEDS: Fluticasone Propionate 100 MCG BLST.W.DEV 1 PUFF INHALE (08:33)
[2024-02-07] MEDS: Cyclobenzaprine HCl 5 MG TABLET PO (08:41)
--- NOTE | 2024-02-07 17:15 | P.DS_ITS ---
DS: Providers Provider Date of Service: 02/07/24 Date of admission: 01/28/24 15:58 Date of discharge: 02/07/24 Primary care physician: Unknown Physician Admitting clinician: Bailey Webber Attending physician on admission: Bailey Webber Attending physician on discharge: Mehrdad Caldwell Discharging clinician: Maggie Linares DS: Diagnosis Discharge Diagnosis (1) Hyponatremia: Status: Resolved (2) Post traumatic stress disorder (PTSD): Status: Acute (3) Schizoaffective disorder, bipolar type: Status: Acute DS: Medications Discharge Medications Home Medications: Home Medications ?Medication ?Instructions ?Recorded ?Confirmed propranolol 20 mg tablet 20 mg PO TID 03/09/23 01/30/24 darifenacin 7.5 mg tablet,extended 7.5 mg PO DAILY 03/10/23 01/30/24 release 24 hr fluticasone propionate 110 1 puff inhalation BID 01/27/24 01/30/24 mcg/actuation HFA aerosol inhaler mirabegron 25 mg tablet,extended 25 mg PO BEDTIME 01/27/24 01/30/24 release 24 hr (Myrbetriq) Previous Rx's ?Medication ?Instructions ?Recorded albuterol sulfate 90 mcg/actuation 2 inh inhalation Q6-8H PRN 03/24/23 aerosol inhaler shortness of breath or wheezing #8.5 grams miconazole nitrate 2 % topical 1 appl topical BID #85 grams 03/24/23 powder (Zeasorb AF) blood-glucose meter (FreeStyle #1 ea 06/07/23 Lite Meter kit) empagliflozin 10 mg tablet 10 mg PO DAILY #30 tabs 11/12/23 (Jardiance) pioglitazone 15 mg tablet 15 mg PO DAILY #90 tabs 11/12/23 meloxicam 15 mg tablet 15 mg PO DAILY 90 days #90 tabs 12/12/23 atorvastatin 20 mg tablet 20 mg PO DAILY #90 tabs 12/14/23 tirzepatide 5 mg/0.5 mL 5 mg (0.5 mL) subcut QWEEK 4 weeks 12/14/23 subcutaneous pen injector #2 mL cyclobenzaprine 5 mg tablet 5 mg PO TID PRN muscle spasm #60 12/29/23 tabs memantine 10 mg tablet 10 mg PO BID 90 days #180 tabs 12/30/23 blood sugar diagnostic (FreeStyle #100 ea 01/25/24 Lite Strips) Depends #1 ea 01/26/24 blood pressure monitor (Blood #1 ea 01/28/24 Pressure Kit) benztropine 0.5 mg tablet 0.5 mg PO TID #90 tabs 02/07/24 clonazepam 0.5 mg tablet 0.5 mg PO BID #60 tabs 02/07/24 gabapentin 400 mg capsule 400 mg PO BID #60 caps 02/07/24 loxapine succinate 10 mg capsule 10 mg PO BID #60 caps 02/07/24 loxapine succinate 5 mg capsule 5 mg PO BID #60 caps 02/07/24 meclizine 25 mg tablet 25 mg PO DAILY #0 tabs 02/07/24 melatonin 3 mg tablet 6 mg (2 x 3 mg) PO BEDTIME PRN 02/07/24 Insomnia #60 tabs Mental Status Exam Mental Status Exam Patient Appearance: Appropriate Patient Orientation: Person, Place, Time and Situation Level of Consciousness: Alert Patient Behavior: Appropriate, Talkative, Cooperative and Good Eye Contact Mood Description: Appropriate Affect Description: Appropriate Patient Cognition Impaired: No Ability to Follow Directions: Good Speech Pattern: Clear and Spontaneous Speech Memory Description: Remote Impaired Hallucinations: None Delusions: Not Present Thought Process: Distracted and Goal Oriented Thought Content: positive for Circumstantial and positive for Goal Oriented Judgement: Fair Judgement and Insight: Fair Data Data Completed and Pending Completed studies during hospitalization [Text1]: 01/31/24 02/01/24 02/01/24 20:34 07:36 08:31 Sodium 135 Potassium 4.7 Chloride 104 Carbon Dioxide 19 L Anion Gap 17 BUN 37 H Creatinine 1.21 Estim Creat Clear Calc 50.2 Estimated GFR 45 POC Glucose 97 133 H Random Glucose 117 H Calcium 10.3 H 02/01/24 02/01/24 02/02/24 17:30 21:06 08:32 Sodium Potassium Chloride Carbon Dioxide Anion Gap BUN Creatinine Estim Creat Clear Calc Estimated GFR POC Glucose 104 124 H 106 Random Glucose Calcium 02/02/24 02/02/24 02/02/24 12:30 17:07 21:22 Sodium Potassium Chloride Carbon Dioxide Anion Gap BUN Creatinine Estim Creat Clear Calc Estimated GFR POC Glucose 123 H 97 122 H Random Glucose Calcium 02/03/24 02/03/24 02/03/24 08:35 12:17 17:54 Sodium Potassium Chloride Carbon Dioxide Anion Gap BUN Creatinine Estim Creat Clear Calc Estimated GFR POC Glucose 147 H 114 108 Random Glucose Calcium 02/03/24 02/04/24 02/04/24 21:22 08:11 12:24 Sodium Potassium Chloride Carbon Dioxide Anion Gap BUN Creatinine Estim Creat Clear Calc Estimated GFR POC Glucose 116 H 137 H 112 Random Glucose Calcium 02/04/24 02/04/24 02/05/24 17:34 20:52 08:14 Sodium Potassium Chloride Carbon Dioxide Anion Gap BUN Creatinine Estim Creat Clear Calc Estimated GFR POC Glucose 169 H 101 108 Random Glucose Calcium 02/05/24 02/05/24 02/05/24 12:24 17:06 20:03 Sodium Potassium Chloride Carbon Dioxide Anion Gap BUN Creatinine Estim Creat Clear Calc Estimated GFR POC Glucose 99 101 100 Random Glucose Calcium 02/06/24 02/06/24 02/06/24 08:07 12:31 16:35 Sodium Potassium Chloride Carbon Dioxide Anion Gap BUN Creatinine Estim Creat Clear Calc Estimated GFR POC Glucose 99 117 H 109 Random Glucose Calcium 02/06/24 02/07/24 22:18 08:14 Sodium Potassium Chloride Carbon Dioxide Anion Gap BUN Creatinine Estim Creat Clear Calc Estimated GFR POC Glucose 122 H 124 H Random Glucose Calcium DS: Summary Hospital Course Hospital Course: Admission to adult psychiatry for exacerbation of schizoaffective disorder, bipolar type with kailash exacerbation possibly due to treatment for asthma with Prednisone.. Medications were evaluated and adjusted. Pt was offered full milieu therapy. She was able to stabilize with time and will return home and to her out patient team at [facility]. Status at Discharge Functional status at discharge: independent ambulation Overall status at discharge: patient is progressing back to baseline Time Spent with Patient Time attestation: Total time managing care of this patient today ____ minutes. Time spent: Less than 30 minutes Discharge Plan Discharge Anticipated Discharge Date/Time: 02/07/24 12:54 Patient Disposition: Home, Self-Care Discharge Diagnosis: PTSD Schizoaffective Disorder, Bipolar Type Referrals: Lynnette: Dr. Hopson [Other] - 02/22/24 11:30 am (Hospital Discharge Appointment Appointment in person at [facility]) GEN: Meera Pompa (therapist) [Other] - 1 Week (Hospital Discharge appointment with therapist) [facility] [Other] - 02/07/24 (fax- [phone]) Kira Craven MD [Physician] - 1 Week (office will call patient with follow-up appointment) Discharge Medications: New benztropine 0.5 mg Tablet 0.5 mg PO TID Qty: 90 0RF melatonin 3 mg Tablet 6 mg PO BEDTIME PRN (Reason: Insomnia) Qty: 60 0RF meclizine 25 mg Tablet 25 mg PO DAILY Qty: 0 0RF loxapine succinate 5 mg capsule 5 mg PO BID Qty: 60 0RF loxapine succinate 10 mg capsule 10 mg PO BID Qty: 60 0RF lisinopril 40 mg tablet 40 mg PO DAILY Qty: 30 0RF Continued albuterol sulfate 90 mcg/actuation HFA aerosol inhaler 2 inh inhalation Q6-8H PRN (Reason: shortness of breath or wheezing) Qty: 8.5 5RF (DME) blood-glucose meter [FreeStyle Lite Meter] Kit See Rx Instructions .Route Qty: 1 0RF Rx Instructions: As directed Jardiance 10 mg tablet 10 mg PO DAILY Qty: 30 4RF atorvastatin 20 mg tablet 20 mg PO DAILY Qty: 90 0RF memantine 10 mg tablet 10 mg PO BID 90 Days Qty: 180 1RF (DME) FreeStyle Lite Strips Strip See Rx Instructions .ROUTE .MEDSUPPLY Qty: 100 3RF Rx Instructions: As directed check the BS QD (DME) Depends large See Rx Instructions .Route .MEDSUPPLY Qty: 1 1RF Rx Instructions: As directed propranolol 20 mg tablet 20 mg PO TID darifenacin 7.5 mg tablet extended release 24 hr 7.5 mg PO DAILY Myrbetriq 25 mg tablet extended release 24 hr 25 mg PO BEDTIME miconazole nitrate [Zeasorb AF] 2 % powder 1 appl topical BID Qty: 85 3RF Discontinued gabapentin 300 mg capsule 300 mg PO BID 30 Days Qty: 180 3RF hydrochlorothiazide [Microzide] 12.5 mg Capsule 12.5 mg PO DAILY clonazepam 0.5 mg tablet 0.5 mg PO TID benztropine 0.5 mg tablet 0.5 mg PO BID loxapine succinate 5 mg capsule 5 mg PO BEDTIME 30 Days Qty: 30 0RF Rx Instructions: take at bedtime with 10mg capsule clonazepam 0.5 mg Tablet 0.5 mg PO DAILY PRN (Reason: Anxiety) lisinopril 40 mg tablet 40 mg PO DAILY 30 Days Qty: 30 8RF loxapine succinate 10 mg capsule 10 mg PO BID Rx Instructions: 10mg in the morning and 15 mg at night. No Action (DME) blood pressure monitor [Blood Pressure Kit] Kit See Rx Instructions .ROUTE .MEDSUPPLY Qty: 1 0RF Rx Instructions: As directed meloxicam 15 mg tablet 15 mg PO DAILY 90 Days Qty: 90 0RF gabapentin 400 mg capsule 400 mg PO BID Qty: 60 0RF fluticasone propionate 100 mcg/actuation blister with device 1 inh inhalation Q12H Qty: 60 12RF clonazepam 0.5 mg tablet 0.5 mg PO Q8H PRN (Reason: anxiety) Qty: 60 0RF tirzepatide 7.5 mg/0.5 mL pen injector 7.5 mg subcut QWEEK 28 Days Qty: 2 2RF cyclobenzaprine 5 mg tablet 5 mg PO TID PRN (Reason: muscle spasm) Qty: 60 2RF Discharge Orders: Discharge Order (Routine); Ordered 02/07/24 Ordered By: Maggie Linares Diet: Advance to usual diet Activity on Discharge: As tolerated Stand Alone Forms: Patient Portal Discharge page, Community Support Print Language: Spanish Care Plan Goals: Mood and Behavioral Stabilization Health Concerns: Mood and Behavioral Stabilization Plan of Treatment: Attend scheduled appointments Take medications as directed Assessment: Pt interviewed prior to discharge and found to be fully oriented and without SI/HI. Pt has insight and demonstrates good judgment in terms of wanting to pursue treatment. Pt is not in imminent risk of harm to self or others and has a safety plan that includes presenting to the closest ER or calling 911 if feeling unsafe. Pt has been observed closely by nursing and unit staff throughout admission. Pt has not engaged in any behaviors that suggest dangerousness to self or others and has demonstrated appropriate behaviors and impulse control. Discharge Date/Time: 02/07/24 13:11
--- NOTE | 2024-02-08 14:12 | PM.EVENT ---
Documented by User: Maggie Linares APRN 02/08/24 14:14 Event Note Date of Service: 02/08/24 Event Note: Message from pt's daughter Shasta questioning if pt should continue Lisinopril. Call to Shasta at [phone]. Pt is asked to continue Lisinopril dosing. Time Spent With Patient Time: Total time managing care of this patient today ____ minutes. Documented by User: Mehrdad Caldwell MD 02/24/24 22:04 Event Note Date of Service: 02/24/24
== END 2024-02-07 13:11 | disposition home or self-care (01) | DRG 885 ==
PROVIDERS: Psychiatry & Neurology Psychiatry; Admitting Provider Clinical Nurse Specialist Psychiatric/Mental Health, Adult; Visit Provider Clinical Nurse Specialist Psychiatric/Mental Health, Adult
DX: F25.0 Schizoaffective disorder, bipolar type (principal); E87.1 Hypo-osmolality and hyponatremia; F43.10 Post-traumatic stress disorder, unspecified; E11.40 Type 2 diabetes mellitus with diabetic neuropathy, unspecified; Z87.81 Personal history of (healed) traumatic fracture; Z79.51 Long term (current) use of inhaled steroids; Z79.899 Other long term (current) drug therapy
CPT/HCPCS: 36415; 80048; 80051; 80061; 82607; 82746; 82947; 83036; 84443

== ENCOUNTER → 2024-01-28 15:58 | Outpatient (BNV) | payer OTHER, SELFPAY | PROVIDERS: Admitting Provider Clinical Nurse Specialist Psychiatric/Mental Health, Adult; Visit Provider Clinical Nurse Specialist Psychiatric/Mental Health, Adult | DX: F25.0 Schizoaffective disorder, bipolar type (principal); F43.11 Post-traumatic stress disorder, acute; E87.1 Hypo-osmolality and hyponatremia | CPT/HCPCS: 99231; 99232; 99238; 99499 ==

== ENCOUNTER 2024-02-21 16:54 | Outpatient (AMB) | payer OTHER, SELFPAY ==
--- NOTE | 2024-02-21 16:55 | MHC.PC.OV ---
Vital Signs 02/21/24 16:56 02/21/24 17:31 Height 5 ft 2 in Weight 201 lb 0.8 oz BMI 36.8 BP 138/90 H 134/80 Blood Pressure Location Lt brachial Lt brachial Position Sitting Sitting Pulse 68 Pulse Source Pulse Oximeter Temp Source Skin Pulse Oximetry (%) 98 Oxygen Delivery Method Room Air Intake Visit Reasons: [facility] [place] Allergies haloperidol [HALOPERIDOL] Allergy (Intermediate, Verified 02/21/24 17:01) SWELLING carbamazepine [From Tegretol] Allergy (Mild, Verified 02/21/24 17:01) RASH, TREMORS lithium [[place]] Allergy (Mild, Verified 02/21/24 17:01) RASH, CRAWLING OUT OF SKIN olanzapine [From Zyprexa] Allergy (Mild, Verified 02/21/24 17:01) RICHARD quetiapine [From Seroquel] Allergy (Mild, Verified 02/21/24 17:01) SWELLING WHOLE BODY, RICHARD topiramate [From TOPAMAX] Allergy (Unknown, Verified 02/21/24 17:01) RICHARD, SI trazodone [TRAZODONE] Allergy (Unknown, Verified 02/21/24 17:01) SYNCOPE aripiprazole [From ABILIFY] Adverse Reaction (Severe, Verified 02/21/24 17:01) EXTREME SI amlodipine Adverse Reaction (Intermediate, Verified 02/21/24 17:01) leg swelling empagliflozin [From Jardiance] Adverse Reaction (Intermediate, Verified 02/21/24 17:01) facial rash metformin Adverse Reaction (Intermediate, Verified 02/21/24 17:01) Diarrhea pioglitazone Adverse Reaction (Intermediate, Verified 02/21/24 17:01) leg swelling lamotrigine [From Lamictal] Adverse Reaction (Mild, Verified 02/21/24 17:01) RICHARD modafinil [From Provigil] Adverse Reaction (Mild, Verified 02/21/24 17:01) RICHARD ALL ANTI DEPRESSENTS Allergy (Unknown, Uncoded 02/21/24 17:01) I GO MANIC All anti-depressants Allergy (Unknown, Uncoded 02/21/24 17:01) manic, rash From GEODON Allergy (Unknown, Uncoded 02/21/24 17:01) LETHARGY From WELLBUTRIN Adverse Reaction (Unknown, Uncoded 02/21/24 17:01) AGITATION, MAVIS Tobacco use date assessed: 02/21/24 Dental Screening Dental Screen Date: 12/14/23 HPI [facility] [place] HPI Details 63-year-old obese female with an uncontrolled diabetes mellitus GERD hypertension hypercholesterolemia asthma and schizoaffective disorder bipolar type last seen in 12/08/2023 patient's colonoscopy last done in October 2016 mammogram is up-to-date 05/09/2023. Review of the notes patient continues to follow-up with psychiatry continuing to be treated with loxapine and clonazepam she was also in the hospital in January for the hyponatremia and schizoaffective disorder. 02/07/2024 last blood work with an LDL of 45 triglyceride of 168.. concern about swelling of the legs- will d/c pioglitazone. bee sting R arm - takes benedryl and is better. eye exam Dr. Negro patient is with the daughter in the office [facility] Medical History Leg swelling Diabetic neuropathy Vaginal pain Cellulitis of right anterior lower leg Bruising Dissociative identity disorder Mild cognitive impairment Breast cancer screening by mammogram Back pain Cognitive impairment Hallucinations Richard Peripheral vascular disease Uterine prolapse GERD (gastroesophageal reflux disease) Polysubstance abuse Type 2 diabetes mellitus with hyperglycemia Asthma Fatty liver Obesity (BMI 30-39.9) Hypercholesterolemia Hypertension Chronic hepatitis C Diarrhea Dementia Surgical History H/O colonoscopy History of ectopic History of appendectomy History of tonsillectomy History of cholecystectomy Family History Father Diabetes Hypertension Mother Hypertension Diabetes CVD (cardiovascular disease) CAD (coronary artery disease) Maternal Aunt Myocardial infarction Cancer Maternal Uncle Myocardial infarction Social History Household Members: Significant Other Housing: House Do you presently have visiting nurse or other home services: Yes (RN vists once daily) Unable to assess alcohol history related to: Unknown Alcohol intake: never Comment: Non skid socks Patient Tobacco Use Status: Former Tobacco user Tobacco use type: Cigarette e-Cigarette/Vaping Use: Never Used Second Hand Smoke Exposure: No Substance Use Type: Caffiene Advance Directives Date on File: 01/27/24 service: No Sexual orientation: Straight/Heterosexual Cognitive needs: No Hearing needs: No Vision needs: Yes Female Reproductive History Menstrual Age of Menarche: 12 Questionnaire Thrive Questionnaire Date Thrive assessed: 01/31/24 AUDIT C Alcohol Use Questionnaire (AUDIT-C) 1. How often do you have a drink containing alcohol?: Never 3. How often do you have six or more drinks on one occasion?: Never Total Score: 0 MARYANN-7 AMB Questionnaire MARYANN-7 Date MARYANN - 7 assessed: 12/14/23 Source: Developed by Drs. Rolando Argueta, Pippa Frances, Lars Alvarado and colleagues, with an educational bharat from [employer]. Physical exam (Primary Care) Vital Signs: Last Vital Signs Pulse 68 02/21/24 16:56 BP 138/90 H 02/21/24 16:56 Pulse Ox 98 02/21/24 16:56 Oxygen Delivery Method Room Air 02/21/24 16:56 BMI result Body Mass Index 36.8 Tobacco/Smoking Status: Tobacco use Status Tobacco use date assessed 02/21/24 02/21/24 16:59 Patient Tobacco Use Status Former Tobacco user 02/21/24 16:59 Tobacco use type Cigarette 02/21/24 16:59 e-Cigarette/Vaping Use Never Used 02/21/24 16:59 Thrive Assessment: Date of Thrive Assessment Date Thrive assessed 01/31/24 02/21/24 16:59 Const General: alert; No acute distress Eyes Conjunctivae: conjunctivae normal Resp Auscultation: clear to auscultation bilaterally Cardio Rate: regular rate Rhythm: regular rhythm GI Inspection: Yes normal to inspection Extrem General: Yes normal to inspection and No edema Assessment and Plan Assessment & Plan (1) Type 2 diabetes mellitus with hyperglycemia: Comment: Dr. Negro Code(s): E11.65 - Type 2 diabetes mellitus with hyperglycemia Qualifiers: Diabetes mellitus extermination supervisor insulin use: without extermination supervisor use Qualified Code(s): E11.65 - Type 2 diabetes mellitus with hyperglycemia Plan: Decrease the amount of carbohydrate intake, pasta, bread, rice and potatoes are all sugar and that is aside from all the sweet stuff, remember that fruits are good but they are Sweet also. Hemoglobin A1c goal of less than 6.5. Patient on Jardiance 10 mg once a day and pioglitazone 15 mg once a day and was started Mounjaro (2) GERD (gastroesophageal reflux disease): Code(s): K21.9 - Gastro-esophageal reflux disease without esophagitis Qualifiers: Esophagitis presence: without esophagitis Qualified Code(s): K21.9 - Gastro-esophageal reflux disease without esophagitis Plan: Avoid the foods that causes that usually spicy foods, tomato products, juices, coffee, soda and foods that your sensitive to. After eating do not lie down, allow 3-4 hours before in lie down. And keep the head of bed above 30 degrees to avoid the acid from going up. (3) Obesity (BMI 30-39.9): Code(s): E66.9 - Obesity, unspecified Plan: Diet and exercise (4) Hypercholesterolemia: Code(s): E78.00 - Pure hypercholesterolemia, unspecified Plan: Avoid fried foods, chicken skin, eggs, butter margarine, pastries and meat. Be it pork or beef they have a lot of cholesterol LDL goal of less than 100 and triglyceride of less than 150 02/07/2024 last blood work on atorvastatin 20 mg once a day (5) Hypertension: Code(s): I10 - Essential (primary) hypertension Qualifiers: Hypertension type: essential hypertension Qualified Code(s): I10 - Essential (primary) hypertension Plan: Continue with blood pressure medication. Decrease salt intake and exercise takes lisinopril 40 mg once a day and propranolol 20 mg twice a day (6) Asthma, persistent controlled: Code(s): J45.998 - Other asthma Plan: Continue with the albuterol and Flovent (7) Schizoaffective disorder, bipolar type: Comment: [facility] Code(s): F25.0 - Schizoaffective disorder, bipolar type Plan: Continue with counseling and therapy (8) Low back pain: Code(s): M54.50 - Low back pain, unspecified Orders: Orders XR lumbar spine 2-3V Today M54.50 - Low back pain, unspecified Medications: New fluticasone propionate 100 mcg/actuation 1 inh inhalation Q12H 60 ea 12RF J45.998 - Other asthma Changed From clonazepam 0.5 mg PO BID 60 tabs 0RF J45.998 - Other asthma To clonazepam 0.5 mg PO Q8H PRN 60 tabs 0RF anxiety J45.998 - Other asthma From tirzepatide 5 mg (0.5 mL) subcut QWEEK 4 weeks 2 mL 2RF E11.65 - Type 2 diabetes mellitus with hyperglycemia To tirzepatide 7.5 mg (0.5 mL) subcut QWEEK 4 weeks 2 mL 2RF E11.65 - Type 2 diabetes mellitus with hyperglycemia Refilled cyclobenzaprine 5 mg PO TID PRN 60 tabs 2RF muscle spasm E11.65 - Type 2 diabetes mellitus with hyperglycemia Discontinued pioglitazone Discontinued Reason: Doctor's Order 15 mg PO DAILY 90 tabs 1RF E11.21 - Type 2 diabetes mellitus with diabetic nephropathy, E11.65 - Type 2 diabetes mellitus with hyperglycemia Coding Level of Care Code Est Pt Level 4 (44895) Complex EM visit Add On G2211 Diagnoses Type 2 diabetes mellitus with hyperglycemia, without long-term current use of insulin E11.65 Diabetes mellitus extermination supervisor insulin use: without [facility] use Gastroesophageal reflux disease without esophagitis K21.9 Esophagitis presence: without esophagitis Obesity (BMI 30-39.9) E66.9 Hypercholesterolemia E78.00 Essential hypertension I10 Hypertension type: essential hypertension Asthma, persistent controlled J45.998 Schizoaffective disorder, bipolar type F25.0 Low back pain M54.50
[2024-02-21 16:56] VITALS: BP 138/90; PULSE 68; O2SAT 98; BMI 36.8
[2024-02-21 17:31] VITALS: BP 134/80
== END 2024-02-21 17:50 | disposition home or self-care (01) ==
PROVIDERS: PCP Internal Medicine; Visit Provider Internal Medicine
DX: E11.65 Type 2 diabetes mellitus with hyperglycemia (principal); E66.9 Obesity, unspecified; F25.0 Schizoaffective disorder, bipolar type; Z68.36 Body mass index [BMI] 36.0-36.9, adult; K21.9 Gastro-esophageal reflux disease without esophagitis; E78.00 Pure hypercholesterolemia, unspecified; I10 Essential (primary) hypertension; J45.998 Other asthma; M54.50 Low back pain, unspecified
CPT/HCPCS: 99214; G2211

== ENCOUNTER 2024-04-03 15:06 | Outpatient (REF) | payer OTHER, SELFPAY ==
--- NOTE | ~2024-04-03 | XR_ITS ---
EXAMINATION: XR LUMBAR SPINE CLINICAL INFORMATION: Low back pain COMPARISON: None TECHNIQUE: Frontal lateral and coned-down L5-S1 frontal lateral, total of 4 views FINDINGS: Five [id number] lumbar vertebrae were identified maintaining normal height and alignments. Intervertebral disc spaces are preserved. Surgical clips right upper quadrant from prior cholecystectomy. Paravertebral soft tissues are unremarkable. There are radiolucencies, most likely superimposed bowel gas.. No radiographic evidence of osteolytic or osteoblastic lesions. XR/XR lumbar spine 2-3V IMPRESSION: * No fracture. * Bone alignments are satisfactory. * Intervertebral disc spaces are preserved.
== END 2024-04-03 15:07 | disposition home or self-care (01) ==
LOC: HO.XRAY 15:06
PROVIDERS: PCP Internal Medicine; Visit Provider Internal Medicine
DX: M54.50 Low back pain, unspecified (principal)
CPT/HCPCS: 72100

== ENCOUNTER 2024-04-04 15:56 | Outpatient (AMB) | payer OTHER, SELFPAY ==
[2024-04-04 15:58] VITALS: BP 102/70; PULSE 72; O2SAT 96; BMI 36.0
--- NOTE | 2024-04-04 15:58 | MHC.PC.OV ---
Vital Signs 04/04/24 15:58 04/04/24 16:25 Height 5 ft 2 in Weight 197 lb 0.6 oz BMI 36.0 BP 102/70 110/70 Blood Pressure Location Lt brachial Lt brachial Position Sitting Sitting Pulse 72 Pulse Source Pulse Oximeter Pulse Oximetry (%) 96 Oxygen Delivery Method Room Air Intake Visit Reasons: DM , bile salt induced diarrhea Group Exercise Instructor Required: No Allergies haloperidol [HALOPERIDOL] Allergy (Intermediate, Verified 04/04/24 16:02) SWELLING carbamazepine [From Tegretol] Allergy (Mild, Verified 04/04/24 16:02) RASH, TREMORS lithium [[place]] Allergy (Mild, Verified 04/04/24 16:02) RASH, CRAWLING OUT OF SKIN olanzapine [From Zyprexa] Allergy (Mild, Verified 04/04/24 16:02) RICHARD quetiapine [From Seroquel] Allergy (Mild, Verified 04/04/24 16:02) SWELLING WHOLE BODY, RICHARD topiramate [From TOPAMAX] Allergy (Unknown, Verified 04/04/24 16:02) RICHARD, SI trazodone [TRAZODONE] Allergy (Unknown, Verified 04/04/24 16:02) SYNCOPE aripiprazole [From ABILIFY] Adverse Reaction (Severe, Verified 04/04/24 16:02) EXTREME SI amlodipine Adverse Reaction (Intermediate, Verified 04/04/24 16:02) leg swelling empagliflozin [From Jardiance] Adverse Reaction (Intermediate, Verified 04/04/24 16:02) facial rash metformin Adverse Reaction (Intermediate, Verified 04/04/24 16:02) Diarrhea pioglitazone Adverse Reaction (Intermediate, Verified 04/04/24 16:02) leg swelling lamotrigine [From Lamictal] Adverse Reaction (Mild, Verified 04/04/24 16:02) RICHARD modafinil [From Provigil] Adverse Reaction (Mild, Verified 04/04/24 16:02) RICHARD ALL ANTI DEPRESSENTS Allergy (Unknown, Uncoded 04/04/24 16:02) I GO MANIC All anti-depressants Allergy (Unknown, Uncoded 04/04/24 16:02) manic, rash From GEODON Allergy (Unknown, Uncoded 04/04/24 16:02) LETHARGY From WELLBUTRIN Adverse Reaction (Unknown, Uncoded 04/04/24 16:02) AGITATION, MAVIS Medication List - Last Reconciled 04/04/24 by Kira Craven MD albuterol sulfate 90 mcg/actuation 2 inhalations inhalation Q6-8H PRN atorvastatin 20 mg PO DAILY benztropine 0.5 mg PO TID blood pressure monitor (Blood Pressure Kit) As directed blood sugar diagnostic (FreeStyle Lite Strips) As directed check the BS QD blood-glucose meter (FreeStyle Lite Meter kit) As directed clonazepam 0.5 mg PO Q8H PRN cyclobenzaprine 5 mg PO TID PRN darifenacin ER 7.5 mg PO DAILY [Depends As directed] empagliflozin (Jardiance) 10 mg PO DAILY fluticasone propionate 100 mcg/actuation 1 inh inhalation Q12H gabapentin 400 mg PO BID lisinopril 40 mg PO DAILY loxapine succinate 5 mg PO BID loxapine succinate 10 mg PO BID meclizine 25 mg PO DAILY meloxicam 15 mg PO DAILY 90 days memantine 10 mg PO BID 90 days miconazole nitrate 2% (Zeasorb AF) 1 appl topical BID mirabegron ER (Myrbetriq) 25 mg PO BEDTIME propranolol 20 mg PO TID tirzepatide 7.5 mg (0.5 mL) subcut QWEEK 4 weeks Tobacco use date assessed: 02/21/24 Dental Screening Dental Screen Date: 12/14/23 HPI DM , bile salt induced diarrhea HPI Details 63-year-old obese female with diabetes mellitus GERD hypercholesterolemia hypertension asthma and schizoaffective disorder last in in 03/09/2024. Patient's colonoscopy is up-to-date mammogram is up-to-date. Has seen 02/21/2024. Patient had some complains about low back pain and an x-ray was done. Results pending [facility] Medical History Leg swelling Diabetic neuropathy Vaginal pain Cellulitis of right anterior lower leg Bruising Dissociative identity disorder Mild cognitive impairment Breast cancer screening by mammogram Back pain Cognitive impairment Hallucinations Richard Peripheral vascular disease Uterine prolapse GERD (gastroesophageal reflux disease) Polysubstance abuse Type 2 diabetes mellitus with hyperglycemia Asthma Fatty liver Obesity (BMI 30-39.9) Hypercholesterolemia Hypertension Chronic hepatitis C Diarrhea Dementia Surgical History H/O colonoscopy History of ectopic History of appendectomy History of tonsillectomy History of cholecystectomy Family History Father Diabetes Hypertension Mother Hypertension Diabetes CVD (cardiovascular disease) CAD (coronary artery disease) Maternal Aunt Myocardial infarction Cancer Maternal Uncle Myocardial infarction Social History Household Members: Significant Other Housing: House Do you presently have visiting nurse or other home services: Yes (RN vists once daily) Unable to assess alcohol history related to: Unknown Alcohol intake: never Comment: Non skid socks Patient Tobacco Use Status: Former Tobacco user Tobacco use type: Cigarette e-Cigarette/Vaping Use: Never Used Second Hand Smoke Exposure: No Substance Use Type: Caffiene Advance Directives Date on File: 01/27/24 service: No Sexual orientation: Straight/Heterosexual Cognitive needs: No Hearing needs: No Vision needs: Yes Female Reproductive History Menstrual Age of Menarche: 12 Questionnaire Thrive Questionnaire Date Thrive assessed: 01/31/24 AUDIT C Alcohol Use Questionnaire (AUDIT-C) 1. How often do you have a drink containing alcohol?: Never 3. How often do you have six or more drinks on one occasion?: Never Total Score: 0 MARYANN-7 AMB Questionnaire MARYANN-7 Date MARYANN - 7 assessed: 12/14/23 Source: Developed by Drs. Rolando Argueta, Pippa Frances, Lars Alvarado and colleagues, with an educational bharat from [employer]. Physical exam (Primary Care) Vital Signs: Last Vital Signs Pulse 72 04/04/24 15:58 BP 102/70 04/04/24 15:58 Pulse Ox 96 04/04/24 15:58 Oxygen Delivery Method Room Air 04/04/24 15:58 BMI result Body Mass Index 36.0 Tobacco/Smoking Status: Tobacco use Status Tobacco use date assessed 02/21/24 04/04/24 15:58 Patient Tobacco Use Status Former Tobacco user 04/04/24 15:58 Tobacco use type Cigarette 04/04/24 15:58 e-Cigarette/Vaping Use Never Used 04/04/24 15:58 Thrive Assessment: Date of Thrive Assessment Date Thrive assessed 01/31/24 04/04/24 15:58 Const General: alert; No acute distress Eyes Conjunctivae: conjunctivae normal Resp Auscultation: clear to auscultation bilaterally Cardio Rate: regular rate Rhythm: regular rhythm GI Inspection: Yes normal to inspection Extrem General: Yes normal to inspection and No edema Results AMB Hemoglobin A1c AMB Hemoglobin A1c 6.4 % Last Edit by BEN Marie on 04/04/24 16:08 Results Reviewed Results Reviewed: Laboratory Last Values Hgb A1c (Clinic) 6.4 % (4.0-6.0) H 04/04/24 11:27 Assessment and Plan Assessment & Plan (1) Type 2 diabetes mellitus with hyperglycemia: Comment: Dr. Negro Code(s): E11.65 - Type 2 diabetes mellitus with hyperglycemia Qualifiers: Diabetes mellitus nursing home insulin use: without vermin exterminator use Qualified Code(s): E11.65 - Type 2 diabetes mellitus with hyperglycemia Plan: Decrease the amount of carbohydrate intake, pasta, bread, rice and potatoes are all sugar and that is aside from all the sweet stuff, remember that fruits are good but they are Sweet also. Hemoglobin A1c goal of less than 6.5. Patient on Jardiance 10 mg once a day and Mounjaro 7.5 mg once a week (2) Obesity (BMI 30-39.9): Code(s): E66.9 - Obesity, unspecified Plan: Diet and exercise continue with Mounjaro (3) Hypercholesterolemia: Code(s): E78.00 - Pure hypercholesterolemia, unspecified Plan: Avoid fried foods, chicken skin, eggs, butter margarine, pastries and meat. Be it pork or beef they have a lot of cholesterol LDL goal of less than 100 and triglyceride of less than 150 on atorvastatin 20 mg once a day January 2024 LDL of 54 (4) Hypertension: Code(s): I10 - Essential (primary) hypertension Qualifiers: Hypertension type: essential hypertension Qualified Code(s): I10 - Essential (primary) hypertension Plan: Continue with blood pressure medication. Decrease salt intake and exercise patient takes lisinopril 40 mg once a day and propranolol 20 mg 3 times a day (5) Low back pain: Code(s): M54.50 - Low back pain, unspecified Plan: X-ray is pending keep active lose the weight (6) Schizoaffective disorder, bipolar type: Comment: [facility] Code(s): F25.0 - Schizoaffective disorder, bipolar type Plan: Continue to follow-up with psychiatry and counseling Orders: Orders AMB Hemoglobin A1c Today E11.65 - Type 2 diabetes mellitus with hyperglycemia Medications: Refilled cyclobenzaprine 5 mg PO TID PRN 60 tabs 2RF muscle spasm E11.65 - Type 2 diabetes mellitus with hyperglycemia Discontinued melatonin Discontinued Reason: Doctor's Order 6 mg (2 x 3 mg) PO BEDTIME PRN 60 tabs 0RF Insomnia Coding Level of Care Code Est Pt Level 4 (02191) Complex EM visit Add On G2211 Diagnoses Type 2 diabetes mellitus with hyperglycemia, without long-term current use of insulin E11.65 Diabetes mellitus nursing home insulin use: without vermin exterminator use Obesity (BMI 30-39.9) E66.9 Hypercholesterolemia E78.00 Essential hypertension I10 Hypertension type: essential hypertension Low back pain M54.50 Schizoaffective disorder, bipolar type F25.0
[2024-04-04 16:25] VITALS: BP 110/70
== END 2024-04-04 16:33 | disposition home or self-care (01) ==
PROVIDERS: PCP Internal Medicine; Visit Provider Internal Medicine
DX: E11.65 Type 2 diabetes mellitus with hyperglycemia (principal); F25.0 Schizoaffective disorder, bipolar type; E66.9 Obesity, unspecified; Z68.36 Body mass index [BMI] 36.0-36.9, adult; E78.00 Pure hypercholesterolemia, unspecified; I10 Essential (primary) hypertension; M54.50 Low back pain, unspecified
CPT/HCPCS: 83036; 99214; G2211

== ENCOUNTER 2024-04-18 14:19 | Outpatient (AMB) | payer OTHER, SELFPAY ==
--- NOTE | 2024-04-18 14:21 | MHC.OFFVIS ---
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: Greenhouse Superintendent Present (Kaila) Allergies haloperidol [HALOPERIDOL] Allergy (Intermediate, Verified 04/18/24 14:27) SWELLING carbamazepine [From Tegretol] Allergy (Mild, Verified 04/18/24 14:27) RASH, TREMORS lithium [[place]] Allergy (Mild, Verified 04/18/24 14:27) RASH, CRAWLING OUT OF SKIN olanzapine [From Zyprexa] Allergy (Mild, Verified 04/18/24 14:27) RICHARD quetiapine [From Seroquel] Allergy (Mild, Verified 04/18/24 14:27) SWELLING WHOLE BODY, RICHARD topiramate [From TOPAMAX] Allergy (Unknown, Verified 04/18/24 14:27) RICHARD, SI trazodone [TRAZODONE] Allergy (Unknown, Verified 04/18/24 14:27) SYNCOPE aripiprazole [From ABILIFY] Adverse Reaction (Severe, Verified 04/18/24 14:27) EXTREME SI amlodipine Adverse Reaction (Intermediate, Verified 04/18/24 14:27) leg swelling empagliflozin [From Jardiance] Adverse Reaction (Intermediate, Verified 04/18/24 14:27) facial rash metformin Adverse Reaction (Intermediate, Verified 04/18/24 14:27) Diarrhea pioglitazone Adverse Reaction (Intermediate, Verified 04/18/24 14:27) leg swelling lamotrigine [From Lamictal] Adverse Reaction (Mild, Verified 04/18/24 14:27) RICHARD modafinil [From Provigil] Adverse Reaction (Mild, Verified 04/18/24 14:27) RICHARD ALL ANTI DEPRESSENTS Allergy (Unknown, Uncoded 04/04/24 16:02) I GO MANIC All anti-depressants Allergy (Unknown, Uncoded 04/04/24 16:02) manic, rash From GEODON Allergy (Unknown, Uncoded 04/04/24 16:02) LETHARGY From WELLBUTRIN Adverse Reaction (Unknown, Uncoded 04/04/24 16:02) AGITATION, MAVIS HPI Comments Details: 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 She is doing well with concerns: pelvic aching x 2 weeks, pain with intimacy, no urinary symptoms or abnormal discharge. Attempting to eat a healthy diet with calcium and vitamin D and stays active with exercise. Last pap smear; 2018. Last mammogram; 2022. Colonoscopy is UTD. Denies any family history of breast, ovarian or colon cancer. [facility] Medical History Leg swelling Diabetic neuropathy Vaginal pain Cellulitis of right anterior lower leg Bruising Dissociative identity disorder Mild cognitive impairment Breast cancer screening by mammogram Back pain Cognitive impairment Hallucinations Richard Peripheral vascular disease Uterine prolapse GERD (gastroesophageal reflux disease) Polysubstance abuse Type 2 diabetes mellitus with hyperglycemia Asthma Fatty liver Obesity (BMI 30-39.9) Hypercholesterolemia Hypertension Chronic hepatitis C Diarrhea Dementia Surgical History H/O colonoscopy History of ectopic History of appendectomy History of tonsillectomy History of cholecystectomy Family History (Updated 04/18/24 @ 14:59 by Shital Sheridan Laura) Father Diabetes Hypertension Mother Hypertension Diabetes CVD (cardiovascular disease) CAD (coronary artery disease) Maternal Aunt Myocardial infarction Cancer Maternal Uncle Myocardial infarction Sister Ovarian cancer Sister History of breast cancer Social History Household Members: Significant Other Housing: House Do you presently have visiting nurse or other home services: Yes (RN vists once daily) Unable to assess alcohol history related to: Unknown Alcohol intake: never Comment: Non skid socks Patient Tobacco Use Status: Former Tobacco user Tobacco use type: Cigarette e-Cigarette/Vaping Use: Never Used Second Hand Smoke Exposure: No Substance Use Type: Caffiene Advance Directives Date on File: 01/27/24 service: No Sexual orientation: Straight/Heterosexual Cognitive needs: No Hearing needs: No Vision needs: Yes Female Reproductive History Menstrual Age of Menarche: 12 Total pregnancies: 5 Full term: 3 Number of Living Children: 3 Ectopics: 2 Date of last pap smear: 12/27/18 (neg pap and hpv) Date of Mammogram: 06/18/23 (Birad 1) Review of Systems Const All systems reviewed & are unremarkable except as noted in HPI and below Reports as per HPI Eyes Reports no additional complaints ENT Reports no additional complaints Card Reports no additional complaints Resp Reports no additional complaints GI Reports as per HPI and Reports no additional complaints Reports as per HPI Musc Reports no additional complaints Skin/Breast Reports as per HPI Neuro Reports no additional complaints Psych Reports no additional complaints Endo Reports no additional complaints Ajay/Lymph Reports no additional complaints Aller/Immun Reports no additional complaints Physical Exam Vital Signs: Last Vital Signs BP 120/80 04/18/24 14:27 BMI result Body Mass Index 35.8 Const General: cooperative, healthy appearing, no acute distress, well developed and alert Orientation/consciousness: patient oriented x3 HEENT Head: Yes normal to inspection Eyes General: appearance normal, both eyes and all related structures Neck Neck: Yes normal visual inspection Thyroid: Thyroid normal Chest Chest palpation & inspection: normal inspection of the chest and other (no puckering, dimpling, peau de orange, retraction, discharge, masses) Breast/axilla inspection: normal inspection of the breasts Breast/axilla palpation: normal palpation of the breasts Resp Effort & Inspection: normal respiratory effort GI Other: Slightly tender left lower anteriorly Inspection: Yes normal to inspection Palpation (GI): Soft to palpation Rectal Exam - Female: deferred General: Yes bladder normal to palpation External Female Exam: normal external appearance and normal appearance of the urethra Speculum Exam - Vagina: normal appearance of the vagina, normal palpation, normal vaginal discharge and vagina atrophic Speculum Exam - Cervix: normal appearance of the cervix, normal palpation and Other cervical findings present (Bled very slightly with Pap) Bimanual exam- vagina & uterus: normal bimanual exam, normal palpation, uterine size normal, bladder normal to palpation, normal palpation and non-tender Bimanual Exam- Adnexa, other: no masses Skin General skin exam: no rashes or lesions noted Rashes: no rashes Neuro General: patient oriented x3 Cognition (Neuro): normal cognition Extrem General: Yes normal to inspection Psych Attitude: cooperative Thought process: Normal thought process present Results AMB Urinalysis, Automated UA Leukoctes 0 Crispin/uL Last Edit by BEN Multani on 04/18/24 15:04 UA Nitrite Negative Last Edit by BEN Multani on 04/18/24 15:04 UA Urobilinogen 0 mg/dL Last Edit by BEN Multani on 04/18/24 15:04 UA Protein 0 mg/dL Last Edit by BEN Multani on 04/18/24 15:04 UA pH 5.5 Last Edit by Shitalpool Sheridan RMA on 04/18/24 15:04 UA Blood 0 Scooter/uL Last Edit by Shitalpool Sheridan RMA on 04/18/24 15:04 UA Specific [place] 1.015 Last Edit by Shitalpool Sheridan RMA on 04/18/24 15:04 UA Ketone Negative Last Edit by AGUSTIN MultaniA on 04/18/24 15:04 UA Bilirubin 0 mg/dL Last Edit by Shital Sheridan RMA on 04/18/24 15:04 UA Glucose 3 mg/dL Last Edit by BEN Multani on 04/18/24 15:04 Results Reviewed Results Reviewed: Laboratory Last Values Urine pH (Auto) 5.5 04/18/24 14:53 Specific [place] (Auto) 1.015 04/18/24 14:53 Urine Protein (Auto) 0 mg/dL 04/18/24 14:53 Glucose (UA)(Auto) 3 mg/dL 04/18/24 14:53 Urine Ketones (Auto) Negative 04/18/24 14:53 Urine Blood (Auto) 0 Scooter/uL 04/18/24 14:53 Urine Nitrite (Auto) Negative 04/18/24 14:53 Urine Bilirubin (Auto) 0 mg/dL 04/18/24 14:53 Urine Urobilinogen (Auto) 0 mg/dL 04/18/24 14:53 Leukocyte Esterase (Auto) 0 Crispin/uL 04/18/24 14:53 Assessment & Plan Assessment & Plan (1) Encounter for well woman exam with routine gynecological exam: Code(s): Z01.419 - Encounter for gynecological examination (general) (routine) without abnormal findings Category: Medical (2) Pelvic pain: Code(s): R10.2 - Pelvic and perineal pain Category: Medical Plan Discussed: Current recommendations for pap smears per ASCCP guidelines. Pap obtained today. Breast awareness, periodic self breast exams and yearly mammogram. Maintain a healthy lifestyle, well balanced diet including Calcium 1,200 mg and Vitamin D 600 IU daily, and routine exercise. Workup for pelvic pain to include cultures and pelvic ultrasound, follow up in person for results. Report to the emergency room immediately if any significant abdominal pain. Contact the office with any postmenopausal bleeding. Patient verbalizes understanding and agrees to the plan of care. She was given opportunity to ask questions and all questions were answered to the best of my ability. 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 This note is constructed using voice recognition software. While every effort has been made to ensure accuracy, relay motorman errors may have been included. Orders: Orders US pelvic and transvaginal Today R10.2 - Pelvic and perineal pain CT NG by PCR Today R10.2 - Pelvic and perineal pain Bacterial Vaginosis Panel Today R10.2 - Pelvic and perineal pain PAP + HPV E6/E7 rfx 18/45 Today Z01.419 - Encounter for gynecological examination (general) (routine) without abnormal findings AMB Urinalysis Automated Today R10.2 - Pelvic and perineal pain Coding Level of Care Code Est Pt Prev Care 40-64y(62811) Diagnoses Encounter for well woman exam with routine gynecological exam Z01.419 Pelvic pain R10.2
[2024-04-18 14:27] VITALS: BP 120/80; BMI 35.8
== END 2024-04-18 15:32 | disposition home or self-care (01) ==
LOC: HO.HWS 14:19
PROVIDERS: PCP Internal Medicine; Visit Provider Advanced Practice Midwife
DX: Z01.419 Encounter for gynecological examination (general) (routine) without abnormal findings (principal); R10.2 Pelvic and perineal pain
CPT/HCPCS: 99396

== ENCOUNTER 2024-04-18 14:19 | Outpatient (REF) | payer OTHER, SELFPAY ==
[2024-04-18 18:11] LABS: CT PCR NOT DETECTED (Not Detect.); NG PCR NOT DETECTED (Not Detect.)
[2024-04-19 12:01] LABS: Bacterial Vaginosis PCR POSITIVE (Negative); Candida Group PCR NOT DETECTED (Not Detect); Candida glab krusei PCR NOT DETECTED (Not Detect); Trichomonas vaginalis PCR NOT DETECTED (Not Detect)
[2024-04-20 09:28] LABS: HPV mRNA E6/E7 Not Detected (Not Detected)
== END 2024-04-18 14:20 | disposition home or self-care (01) ==
LOC: HO.LNP 14:19
PROVIDERS: PCP Internal Medicine; Visit Provider Advanced Practice Midwife
DX: Z01.419 Encounter for gynecological examination (general) (routine) without abnormal findings (principal); Z11.51 Encounter for screening for human papillomavirus (HPV); R10.2 Pelvic and perineal pain
CPT/HCPCS: 0352U; 81003; 87491; 87591; 87624; 88175

== ENCOUNTER 2024-04-18 14:53 | Outpatient (REF) | payer OTHER, SELFPAY | END 2024-04-18 14:54 | disposition home or self-care (01) | LOC: HO.LAB 14:53 | PROVIDERS: Visit Provider Advanced Practice Midwife | DX: Z13.89 Encounter for screening for other disorder (principal) ==

== ENCOUNTER 2024-05-19 15:33 | Outpatient (REF) | payer OTHER, SELFPAY ==
--- NOTE | ~2024-05-19 | US_ITS ---
EXAMINATION: US PELVIS CLINICAL INFORMATION: Pelvic and perineal pain. COMPARISON: CT abdomen and pelvis 05/10/2020. TECHNIQUE: Ultrasound of the pelvis is performed using both transabdominal and transvaginal transducers along with Doppler. Transvaginal imaging is performed due to inadequate visualization transabdominally. FINDINGS: Uterus: The uterus is anteverted and measures 9.0 x 3.0 x 4.3 cm. The double wall endometrial thickness is 2 mm. Some fluid is seen in the endometrial canal along with one tiny hypoattenuating area which may represent a small polyp or cyst. The uterus is smooth in contour and has normal myometrial echogenicity. No visible fibroid. Adnexa: The right ovary has been removed. There is normal color flow to the adnexa. There is no ovarian torsion. There is no pelvic ascites or fluid collection. Left ovary measures 1.8 x 0.7 x 0.8 cm for a volume of 0.6 mL. US/US pelvic and transvaginal IMPRESSION: Small polyp or cyst within the endometrial canal. Electronically signed by: Anmol Ortiz MD 05/22/2024 09:51 PM EDT
== END 2024-05-19 15:34 | disposition home or self-care (01) ==
LOC: HO.US 15:33
PROVIDERS: PCP Internal Medicine; Visit Provider Advanced Practice Midwife
DX: R10.2 Pelvic and perineal pain (principal)
CPT/HCPCS: 76830; 76856

== ENCOUNTER 2024-06-27 09:32 | Outpatient (AMB) | payer OTHER, SELFPAY ==
--- NOTE | 2024-06-27 09:36 | MHC.PC.OV ---
Vital Signs 06/27/24 09:39 Height 5 ft 2 in Weight 194 lb 4 oz BMI 35.5 BP 130/80 Blood Pressure Location Lt brachial Position Sitting Pulse 66 Pulse Source Pulse Oximeter Pulse Oximetry (%) 96 Oxygen Delivery Method Room Air Intake Visit Reasons: 3 month f/u Intake Note: Patient is here to follow up on DM, HTN, Hypercholesterolemia Hearing Therapist Required: No Stone Banker: Present Accompanied by: Self / Same As Patient Allergies haloperidol [HALOPERIDOL] Allergy (Intermediate, Verified 04/18/24 14:27) SWELLING carbamazepine [From Tegretol] Allergy (Mild, Verified 04/18/24 14:27) RASH, TREMORS lithium [[place]] Allergy (Mild, Verified 04/18/24 14:27) RASH, CRAWLING OUT OF SKIN olanzapine [From Zyprexa] Allergy (Mild, Verified 04/18/24 14:27) RICHARD quetiapine [From Seroquel] Allergy (Mild, Verified 04/18/24 14:27) SWELLING WHOLE BODY, RICHARD topiramate [From TOPAMAX] Allergy (Unknown, Verified 04/18/24 14:27) RICHARD, SI trazodone [TRAZODONE] Allergy (Unknown, Verified 04/18/24 14:27) SYNCOPE aripiprazole [From ABILIFY] Adverse Reaction (Severe, Verified 04/18/24 14:27) EXTREME SI amlodipine Adverse Reaction (Intermediate, Verified 04/18/24 14:27) leg swelling empagliflozin [From Jardiance] Adverse Reaction (Intermediate, Verified 04/18/24 14:27) facial rash metformin Adverse Reaction (Intermediate, Verified 04/18/24 14:27) Diarrhea pioglitazone Adverse Reaction (Intermediate, Verified 04/18/24 14:27) leg swelling lamotrigine [From Lamictal] Adverse Reaction (Mild, Verified 04/18/24 14:27) RICHARD modafinil [From Provigil] Adverse Reaction (Mild, Verified 04/18/24 14:27) RICHARD ALL ANTI DEPRESSENTS Allergy (Unknown, Uncoded 04/04/24 16:02) I GO MANIC All anti-depressants Allergy (Unknown, Uncoded 04/04/24 16:02) manic, rash From GEODON Allergy (Unknown, Uncoded 04/04/24 16:02) LETHARGY From WELLBUTRIN Adverse Reaction (Unknown, Uncoded 04/04/24 16:02) AGITATION, MAVIS Tobacco use date assessed: 06/27/24 Fall risk assessment: No Falls in past year Last assessed Fall Risk: 06/27/24 Dental Screening Dental Screen Date: 12/14/23 HPI 3 month f/u HPI Details 64-year-old obese female with diabetes mellitus hypercholesterolemia hypertension history of schizoaffective disorder. Patient's colonoscopy is due mammogram is due bone density is due. [facility] Medical History (Updated 06/27/24 @ 09:56 by Kira Craven MD) Breast cancer screening by mammogram Leg swelling Diabetic neuropathy Vaginal pain Cellulitis of right anterior lower leg Bruising Dissociative identity disorder Mild cognitive impairment Back pain Cognitive impairment Hallucinations Richard Peripheral vascular disease Uterine prolapse GERD (gastroesophageal reflux disease) Polysubstance abuse Type 2 diabetes mellitus with hyperglycemia Asthma Fatty liver Obesity (BMI 30-39.9) Hypercholesterolemia Hypertension Chronic hepatitis C Diarrhea Dementia Surgical History H/O colonoscopy History of ectopic History of appendectomy History of tonsillectomy History of cholecystectomy Family History Father Diabetes Hypertension Mother Hypertension Diabetes CVD (cardiovascular disease) CAD (coronary artery disease) Maternal Aunt Myocardial infarction Cancer Maternal Uncle Myocardial infarction Sister Ovarian cancer Sister History of breast cancer Social History Household Members: Significant Other Housing: House Do you presently have visiting nurse or other home services: Yes (RN vists once daily) Unable to assess alcohol history related to: Unknown Alcohol intake: never Comment: Non skid socks Patient Tobacco Use Status: Former Tobacco user Tobacco use type: Cigarette e-Cigarette/Vaping Use: Never Used Second Hand Smoke Exposure: No Substance Use Type: Caffiene Advance Directives Date on File: 01/27/24 service: No Sexual orientation: Straight/Heterosexual Cognitive needs: No Hearing needs: No Vision needs: Yes Female Reproductive History Menstrual Age of Menarche: 12 Questionnaire PHQ-9 Over the last 2 weeks, how often have you been bothered by any of the following problems? 1. Little interest or pleasure in doing things: nearly every day 2. Feeling down, depressed, or hopeless: nearly every day 3. Trouble falling or staying asleep, or sleeping too much: more than half the days 4. Feeling tired or having little energy: nearly every day 5. Poor appetite or overeating: nearly every day 6. Feeling bad about yourself - or that you are a failure or have let yourself or your family down: nearly every day 7. Trouble concentrating on things, such as reading the newspaper or watching television: nearly every day 8. Moving or speaking so slowly that other people could have noticed. Or the opposite - being so fidgety or restless that you have been moving around a lot more than usual: not at all 9. Thoughts that you would be better off or of hurting yourself in some way: not at all Total score: 20 Depression Screening Interpretation: Positive Depression Screening Done: Yes Source: Developed by Drs. Rolando Argueta, Pippa Frances, Lars Alvarado and colleagues, with an educational bharat from [employer]. Thrive Questionnaire Date Thrive assessed: 01/31/24 Are you currently unemployed and looking for a job?: No MARYANN-7 AMB Questionnaire MARYANN-7 Date MARYANN - 7 assessed: 12/14/23 Source: Developed by Drs. Rolando Argueta, Pippa Frances, Lars Alvarado and colleagues, with an educational bharat from [employer]. Physical exam (Primary Care) Vital Signs: Last Vital Signs Pulse 66 06/27/24 09:39 BP 130/80 06/27/24 09:39 Pulse Ox 96 06/27/24 09:39 Oxygen Delivery Method Room Air 06/27/24 09:39 BMI result Body Mass Index 35.5 Tobacco/Smoking Status: Tobacco use Status Tobacco use date assessed 06/27/24 06/27/24 09:46 Patient Tobacco Use Status Former Tobacco user 06/27/24 09:46 Tobacco use type Cigarette 06/27/24 09:46 e-Cigarette/Vaping Use Never Used 06/27/24 09:46 PHQ-9: PHQ-9 Score PHQ-9: Total score 20 06/27/24 09:54 Depression Screening Interpretation: Positive Thrive Assessment: Date of Thrive Assessment Date Thrive assessed 01/31/24 06/27/24 09:46 Const General: alert; No acute distress Eyes Conjunctivae: conjunctivae normal Resp Auscultation: clear to auscultation bilaterally Cardio Rate: regular rate Rhythm: regular rhythm GI Inspection: Yes normal to inspection Extrem General: Yes normal to inspection and No edema Office Procedures Flu Questionnaire Does the patient have a severe egg allergy?: No Does the patient have severe life threatening allergies?: No Does the patient have a fever or illness today?: No Has the patient ever had Guillain-Delta Syndrome?: No Has the patient ever had any past reaction to a flu shot?: No Results AMB Hemoglobin A1c AMB Hemoglobin A1c 6.9 % Last Edit by BEN Burk on 06/27/24 09:53 Immunizations Fluarix Triv [id number] (PF) 45 mcg (15 mcg x 3)/0.5 mL IM syringe Performing Provider: Kira Craven MD Performing Location: [facility] Administered by: Raquel Owen LPN on 06/27/24 09:54 Dose Route Admin Location Dispensed Lot Number Expiration Date [facility] [employer] 0.5 mL IM Left Deltoid 0.5 mL [id number] 03/19/25 [id number] [employer] VIS Given Date VIS Provided VIS Publication Date 06/27/24 Single Vaccine 21 Eligibility Eligibility Date Funding Source Not [facility] Eligible 06/27/24 Private Results Reviewed Results Reviewed: Laboratory Last Values Hgb A1c (Clinic) 6.9 % (4.0-6.0) H 06/27/24 09:35 Coding Level of Care Code Est Pt Level 4 (58187) Diagnoses Type 2 diabetes mellitus with hyperglycemia, without long-term current use of insulin E11.65 Diabetes mellitus skilled nursing insulin use: without buttermaker continuous churn use Obesity (BMI 30-39.9) E66.9 Essential hypertension I10 Hypertension type: essential hypertension Hypercholesterolemia E78.00 Gastroesophageal reflux disease without esophagitis K21.9 Esophagitis presence: without esophagitis Schizoaffective disorder, bipolar type F25.0 Breast cancer screening by mammogram Z12.31 Colon cancer screening Z12.11 Assessment & Plan Assessment & Plan (1) Type 2 diabetes mellitus with hyperglycemia: Comment: Dr. Negro Code(s): E11.65 - Type 2 diabetes mellitus with hyperglycemia Category: Medical Qualifiers: Diabetes mellitus buttermaker continuous churn insulin use: without skilled nursing use Qualified Code(s): E11.65 - Type 2 diabetes mellitus with hyperglycemia Plan: Decrease the amount of carbohydrate intake, pasta, bread, rice and potatoes are all sugar and that is aside from all the sweet stuff, remember that fruits are good but they are Sweet also. Hemoglobin A1c goal of less than 6.5. Patient is on Jardiance 10 mg once a day to his appetite 7.5 mg once a week (2) Obesity (BMI 30-39.9): Code(s): E66.9 - Obesity, unspecified Category: Medical Plan: Diet and exercise (3) Hypertension: Code(s): I10 - Essential (primary) hypertension Category: Medical Qualifiers: Hypertension type: essential hypertension Qualified Code(s): I10 - Essential (primary) hypertension Plan: Continue with blood pressure medication. Decrease salt intake and exercise on lisinopril 40 mg once a day and propranolol 20 mg 3 times a day (4) Hypercholesterolemia: Code(s): E78.00 - Pure hypercholesterolemia, unspecified Category: Medical Plan: Avoid fried foods, chicken skin, eggs, butter margarine, pastries and meat. Be it pork or beef they have a lot of cholesterol 02/07/2024 last blood work on atorvastatin 20 mg once a day (5) GERD (gastroesophageal reflux disease): Code(s): K21.9 - Gastro-esophageal reflux disease without esophagitis Category: Medical Qualifiers: Esophagitis presence: without esophagitis Qualified Code(s): K21.9 - Gastro-esophageal reflux disease without esophagitis Plan: Avoid the foods that causes that usually spicy foods, tomato products, juices, coffee, soda and foods that your sensitive to. After eating do not lie down, allow 3-4 hours before in lie down. And keep the head of bed above 30 degrees to avoid the acid from going up. (6) Schizoaffective disorder, bipolar type: Comment: [facility] Code(s): F25.0 - Schizoaffective disorder, bipolar type Category: Medical Plan: Continue to follow-up with counseling and therapy. (7) Breast cancer screening by mammogram: Code(s): Z12.31 - Encounter for screening mammogram for malignant neoplasm of breast Category: Medical Plan: Reminded about mammogram (8) Colon cancer screening: Code(s): Z12.11 - Encounter for screening for malignant neoplasm of colon Category: Medical Plan: Reminded about colon cancer screening Orders: Orders Influenza [id number] Immunization Today Z23 - Encounter for immunization MM tomosynthesis screening BI Today Z12.31 - Encounter for screening mammogram for malignant neoplasm of breast AMB Hemoglobin A1c Today E11.65 - Type 2 diabetes mellitus with hyperglycemia Referrals Gastroenterology Referral Z12.11 - Encounter for screening for malignant neoplasm of colon Medications: Changed From tirzepatide 7.5 mg (0.5 mL) subcut QWEEK 4 weeks 2 mL 2RF E11.65 - Type 2 diabetes mellitus with hyperglycemia To tirzepatide 10 mg (0.5 mL) subcut QWEEK 2 mL 2RF 4 weeks E11.65 - Type 2 diabetes mellitus with hyperglycemia
[2024-06-27 09:39] VITALS: BP 130/80; PULSE 66; O2SAT 96; BMI 35.5
== END 2024-06-27 10:03 | disposition home or self-care (01) ==
PROVIDERS: PCP Internal Medicine; Visit Provider Internal Medicine
DX: E11.65 Type 2 diabetes mellitus with hyperglycemia (principal); F25.0 Schizoaffective disorder, bipolar type; E66.812 Obesity, class 2; Z68.35 Body mass index [BMI] 35.0-35.9, adult; I10 Essential (primary) hypertension; E78.00 Pure hypercholesterolemia, unspecified; K21.9 Gastro-esophageal reflux disease without esophagitis; Z12.31 Encounter for screening mammogram for malignant neoplasm of breast; Z12.11 Encounter for screening for malignant neoplasm of colon; Z23 Encounter for immunization

== ENCOUNTER → 2024-06-27 09:32 | Outpatient (BNVA) | payer OTHER, SELFPAY | PROVIDERS: PCP Internal Medicine; Visit Provider Internal Medicine | DX: Z23 Encounter for immunization (principal); E11.65 Type 2 diabetes mellitus with hyperglycemia; E66.9 Obesity, unspecified; I10 Essential (primary) hypertension; E78.00 Pure hypercholesterolemia, unspecified; K21.9 Gastro-esophageal reflux disease without esophagitis; F25.0 Schizoaffective disorder, bipolar type | CPT/HCPCS: 83036; 90471; 90656; 96127; 99212 ==

== ENCOUNTER → 2024-07-26 11:21 | Outpatient (BNVA) | payer OTHER, SELFPAY | PROVIDERS: PCP Internal Medicine; Visit Provider Advanced Practice Midwife ==

== ENCOUNTER 2024-08-01 12:21 | Outpatient (AMB) | payer OTHER, SELFPAY ==
--- NOTE | 2024-08-01 12:43 | MHC.OFFVIS ---
Intake Visit Reasons: Hystoscopy Consult per Mike Finishing And Shipping Supervisor: Finishing And Shipping Supervisor Present Accompanied by: Daughter Allergies haloperidol [HALOPERIDOL] Allergy (Intermediate, Verified 07/26/24 11:21) SWELLING carbamazepine [From Tegretol] Allergy (Mild, Verified 07/26/24 11:21) RASH, TREMORS lithium [[place]] Allergy (Mild, Verified 07/26/24 11:21) RASH, CRAWLING OUT OF SKIN olanzapine [From Zyprexa] Allergy (Mild, Verified 07/26/24 11:21) RICHARD quetiapine [From Seroquel] Allergy (Mild, Verified 07/26/24 11:21) SWELLING WHOLE BODY, RICHARD topiramate [From TOPAMAX] Allergy (Unknown, Verified 07/26/24 11:21) RICHARD, SI trazodone [TRAZODONE] Allergy (Unknown, Verified 07/26/24 11:21) SYNCOPE aripiprazole [From ABILIFY] Adverse Reaction (Severe, Verified 07/26/24 11:21) EXTREME SI amlodipine Adverse Reaction (Intermediate, Verified 07/26/24 11:21) leg swelling empagliflozin [From Jardiance] Adverse Reaction (Intermediate, Verified 07/26/24 11:21) facial rash metformin Adverse Reaction (Intermediate, Verified 07/26/24 11:21) Diarrhea pioglitazone Adverse Reaction (Intermediate, Verified 07/26/24 11:21) leg swelling lamotrigine [From Lamictal] Adverse Reaction (Mild, Verified 07/26/24 11:21) RICHARD modafinil [From Provigil] Adverse Reaction (Mild, Verified 07/26/24 11:21) RICHARD ALL ANTI DEPRESSENTS Allergy (Unknown, Uncoded 04/04/24 16:02) I GO MANIC All anti-depressants Allergy (Unknown, Uncoded 04/04/24 16:02) manic, rash From GEODON Allergy (Unknown, Uncoded 04/04/24 16:02) LETHARGY From WELLBUTRIN Adverse Reaction (Unknown, Uncoded 04/04/24 16:02) AGITATION, MAVIS Is last menstrual period known: Yes Last menstrual period: 07/18/20 Post menopausal: No Patient : No Do you need a note to return to daycare/school/sports/work: Yes (for surgery on wednesday) HPI Comments Details: The patient is presenting referred from Jalyn Lawrence CNM regarding questionable endometrial polyp with endometrial fluid by ultrasound 05/13 pelvic ultrasound showed the following: Uterus: The uterus is anteverted and measures 9.0 x 3.0 x 4.3 cm. The double wall endometrial thickness is 2 mm. Some fluid is seen in the endometrial canal along with one tiny hypoattenuating area which may represent a small polyp or cyst. The uterus is smooth in contour and has normal myometrial echogenicity. No visible fibroid. Adnexa: The right ovary has been removed. There is normal color flow to the adnexa. There is no ovarian torsion. There is no pelvic ascites or fluid collection. Left ovary measures 1.8 x 0.7 x 0.8 cm for a volume of 0.6 mL. [facility] Medical History Breast cancer screening by mammogram Leg swelling Diabetic neuropathy Vaginal pain Cellulitis of right anterior lower leg Bruising Dissociative identity disorder Mild cognitive impairment Back pain Cognitive impairment Hallucinations Richard Peripheral vascular disease Uterine prolapse GERD (gastroesophageal reflux disease) Polysubstance abuse Type 2 diabetes mellitus with hyperglycemia Asthma Fatty liver Obesity (BMI 30-39.9) Hypercholesterolemia Hypertension Chronic hepatitis C Diarrhea Dementia Surgical History H/O colonoscopy History of ectopic History of appendectomy History of tonsillectomy History of cholecystectomy Family History Father Diabetes Hypertension Mother Hypertension Diabetes CVD (cardiovascular disease) CAD (coronary artery disease) Maternal Aunt Myocardial infarction Cancer Maternal Uncle Myocardial infarction Sister Ovarian cancer Sister History of breast cancer Social History Household Members: Significant Other Housing: House Do you presently have visiting nurse or other home services: Yes (RN vists once daily) Unable to assess alcohol history related to: Unknown Alcohol intake: never Comment: Non skid socks Patient Tobacco Use Status: Former Tobacco user Tobacco use type: Cigarette e-Cigarette/Vaping Use: Never Used Second Hand Smoke Exposure: No Substance Use Type: Caffiene Advance Directives Date on File: 01/27/24 service: No Sexual orientation: Straight/Heterosexual Cognitive needs: No Hearing needs: No Vision needs: Yes Female Reproductive History Menstrual Age of Menarche: 12 Date of last menstrual period: 07/18/20 Total pregnancies: 2 Full term: 2 Review of Systems Card Reports as per HPI and Reports no additional complaints Resp Reports as per HPI and Reports no additional complaints GI Reports as per HPI and Reports no additional complaints Reports as per HPI Physical Exam Const General: cooperative, healthy appearing and comfortable Resp Effort & Inspection: normal respiratory effort Auscultation: clear to auscultation bilaterally Percussion: percussion normal Cardio Palpation: normal PMI Rate: regular rate Rhythm: regular rhythm Heart sounds: no murmurs and no rubs Peripheral pulses: Peripheral pulses 2+ throughout GI Inspection: Yes normal to inspection Palpation (GI): Soft to palpation, nontender, no guarding, not rigid and No hepatosplenomegaly present Percussion: Yes normal to percussion Auscultation: normal bowel sounds Rectal Exam - Female: deferred Assessment & Plan Assessment & Plan (1) Endometrial polyp: Comment: 2 mm endometrial stripe by ultrasound with endometrial fluid and ?endometrial polyp Code(s): N84.0 - Polyp of corpus uteri Category: Medical Plan: Discussed with the patient the results of the ultrasound showing endometrial fluid and questionable endometrial polyp with 2 mm endometrial stripe. Recommended hysteroscopy D&C possible polypectomy/myomectomy to rule out endometrial pathology including endometrial hyperplasia or malignancy. Discussed with the patient the procedure , all benefits and risks including but not limited to inability to complete the procedure , insufficient endometrial tissue for a complete evaluation of the endometrial cavity , bleeding, infection, possible need for blood transfusion with all its risk ( HIV,syphilis, Hepatitis, anaphylaxis shock, others..), injury to bladder, rectum, possible need for laparoscopy/laparotomy or hysterectomy. The patient verbalized understanding and signed the consent. Instructions given the patient to stay NPO after midnight the day prior to the procedure and to hold off taking Tirzepatide for 1 week and Jardiance for 3 days, prior to procedure and to take only lisinopril and propranolol as discussed the morning of the surgical procedure and to schedule a 2 week postoperative appointment Coding Level of Care Code Est Pt Level 3 (63321) Diagnoses Endometrial polyp N84.0
== END 2024-08-01 13:04 | disposition home or self-care (01) ==
PROVIDERS: PCP Internal Medicine; Visit Provider Obstetrics & Gynecology
DX: N84.0 Polyp of corpus uteri (principal)
CPT/HCPCS: 99213

== ENCOUNTER → 2024-08-01 12:21 | Outpatient (BNVA) | payer OTHER, SELFPAY | PROVIDERS: PCP Internal Medicine; Visit Provider Obstetrics & Gynecology | DX: N84.0 Polyp of corpus uteri (principal) | CPT/HCPCS: 99212 ==

== ENCOUNTER 2024-08-08 12:55 | Outpatient (REF) | payer OTHER, SELFPAY ==
--- NOTE | ~2024-08-08 | MM_ITS ---
EXAMINATION: MM SCREENING DIGITAL BREAST TOMOSYNTHESIS, BILATERAL CLINICAL INFORMATION: Screening. Asymptomatic. COMPARISON: Mammography: Comparison is made with available priors TECHNIQUE: Digital breast mammography with tomosynthesis is performed in both the craniocaudal and mediolateral oblique views along with computer-aided detection (CAD). FINDINGS: There are scattered areas of fibroglandular density (ACR BI-RADS breast composition Category b). There are no significant masses, abnormal calcifications, or other abnormalities. MM/MM tomosynthesis screening BI IMPRESSION: No mammographic evidence of malignancy. ASSESSMENT: BI-RADS BI-RADS 1 - Negative RECOMMENDATION: Routine annual mammography screening. 1 year F/U This examination should not preclude the clinical evaluation of a suspicious palpable abnormality. This patient's information was entered into a reminder system with a target due date for their next mammogram. Electronically signed by: Jenae Lincoln DO 08/16/2024 08:17 AM [facility] [place]
== END 2024-08-08 12:56 | disposition home or self-care (01) ==
LOC: HO.MAMMO 12:55
PROVIDERS: PCP Internal Medicine; Visit Provider Internal Medicine
DX: Z12.31 Encounter for screening mammogram for malignant neoplasm of breast (principal)
CPT/HCPCS: 77063; 77067

== ENCOUNTER → 2024-08-08 13:00 | Outpatient (BNV) | payer OTHER, SELFPAY | PROVIDERS: PCP Internal Medicine; Visit Provider Internal Medicine | DX: Z12.31 Encounter for screening mammogram for malignant neoplasm of breast (principal) | CPT/HCPCS: 77063; 77067 ==

== ENCOUNTER 2024-08-22 12:30 | Day surgery (SDC) | payer OTHER, SELFPAY ==
--- NOTE | 2024-08-21 12:24 | P.CONAN_ITS ---
Documented by User: Antonella Elam NP 08/21/24 12:28 HPI - Anesthesia Eval Consult details Narrative: 64yo F for D&C Hysteroscopy, possible myomectomy/polypectomy *Multiple Med Allergy* Anesthesia Pre-Procedure Meds Is the patient on any of the following meds?: GLP1/DPP4 and SGLT2 Inhib PMFSH Active Problems Active Problems: All Active Problems Endometrial polyp (Acute) Breast cancer screening by mammogram (Acute) Colon cancer screening (Acute) Pelvic pain (Acute) Encounter for well woman exam with routine gynecological exam (Acute) Low back pain (Acute) Constipation (Acute) Leg swelling (Acute) Dysuria (Acute) Post-cholecystectomy syndrome (Acute) Meralgia paraesthetica (Acute) Tinea pedis (Acute) Diabetic neuropathy (Acute) Diarrhea (Acute) Recurrent major depression (Acute) Post traumatic stress disorder (PTSD) (Acute) Bipolar 1 disorder (Acute) UTI (urinary tract infection) (Acute) Annual physical exam (Acute) Asthma, persistent controlled (Acute) Hypersomnia (Acute) Peripheral vascular disease (Acute) Hypertension (Acute) Hypercholesterolemia (Acute) Obesity (BMI 30-39.9) (Acute) Type 2 diabetes mellitus with hyperglycemia (Acute) Diabetic nephropathy (Acute) GERD (gastroesophageal reflux disease) (Acute) Mixed incontinence (Acute) Schizoaffective disorder, bipolar type (Acute) Vascular dementia of acute onset without behavioral disturbance (Acute) Past Medical History Medical History Heart murmur Diabetic neuropathy Vaginal pain Cellulitis of right anterior lower leg Bruising Dissociative identity disorder Mild cognitive impairment Breast cancer screening by mammogram Back pain Cognitive impairment Hallucinations Richard Leg swelling Peripheral vascular disease Uterine prolapse GERD (gastroesophageal reflux disease) Polysubstance abuse Type 2 diabetes mellitus with hyperglycemia Asthma Fatty liver Obesity (BMI 30-39.9) Hypercholesterolemia Hypertension Chronic hepatitis C Diarrhea Dementia Family History Family History Father Diabetes Hypertension Mother Hypertension Diabetes CVD (cardiovascular disease) CAD (coronary artery disease) Maternal Aunt Myocardial infarction Cancer Maternal Uncle Myocardial infarction Sister Ovarian cancer Sister History of breast cancer Surgical History Surgical History H/O colonoscopy History of ectopic History of tonsillectomy History of cholecystectomy Social History Social History Household Members: Significant Other Housing: House Do you presently have visiting nurse or other home services: Yes (RN vists once daily) Unable to assess alcohol history related to: Unknown Alcohol intake: never Comment: Non skid socks Patient Tobacco Use Status: Former Tobacco user Tobacco use type: Cigarette e-Cigarette/Vaping Use: Never Used Second Hand Smoke Exposure: No Use of substances other than those prescribed or required for medical reasons: No Substance Use Type: Caffiene Are you DNR?: No Advance Directives: No Advance Directives Information Provided: Yes Advance Directives Date on File: 01/27/24 Nutrition Risks: No Nutritional Risk Patient : No service: No Sexual orientation: Straight/Heterosexual Cognitive needs: No Hearing needs: No Vision needs: Yes Meds Allergies Allergy/AdvReac Type Severity Reaction Status Date / Time haloperidol [HALOPERIDOL] Allergy Intermediate SWELLING Verified 07/26/24 11:21 carbamazepine [From Tegretol] Allergy Mild RASH, Verified 07/26/24 11:21 TREMORS lithium [[place]] Allergy Mild RASH, Verified 07/26/24 11:21 CRAWLING OUT OF SKIN olanzapine [From Zyprexa] Allergy Mild RICHARD Verified 07/26/24 11:21 quetiapine [From Seroquel] Allergy Mild SWELLING Verified 07/26/24 11:21 WHOLE BODY, RICHARD topiramate [From TOPAMAX] Allergy Unknown RICHARD, SI Verified 07/26/24 11:21 trazodone [TRAZODONE] Allergy Unknown SYNCOPE Verified 07/26/24 11:21 aripiprazole [From ABILIFY] AdvReac Severe EXTREME SI Verified 07/26/24 11:21 amlodipine AdvReac Intermediate leg Verified 07/26/24 11:21 swelling empagliflozin AdvReac Intermediate facial rash Verified 07/26/24 11:21 [From Jardiance] metformin AdvReac Intermediate Diarrhea Verified 07/26/24 11:21 pioglitazone AdvReac Intermediate leg Verified 07/26/24 11:21 swelling lamotrigine [From Lamictal] AdvReac Mild RICHARD Verified 07/26/24 11:21 modafinil [From Provigil] AdvReac Mild RICHARD Verified 07/26/24 11:21 prednisone AdvReac Agitated Verified 08/22/24 12:47 ALL ANTI DEPRESSENTS Allergy Unknown I GO Uncoded 04/04/24 16:02 MANIC All anti-depressants Allergy Unknown manic, rash Uncoded 04/04/24 16:02 From GEODON Allergy Unknown LETHARGY Uncoded 04/04/24 16:02 From WELLBUTRIN AdvReac Unknown AGITATION, Uncoded 04/04/24 16:02 MAVIS Home Medications ?Medication ?Instructions ?Recorded ?Confirmed ?Last Taken ?Type propranolol 20 mg tablet 20 mg PO TID 03/09/23 04/04/24 08/22/24 History darifenacin 7.5 mg tablet,extended 7.5 mg PO DAILY 03/10/23 04/04/24 01/27/24 History release 24 hr mirabegron 25 mg tablet,extended 25 mg PO BEDTIME 01/27/24 04/04/24 01/26/24 History release 24 hr (Myrbetriq) pioglitazone 15 mg tablet 15 mg PO DAILY 07/26/24 Unknown History Exam Narrative Narrative: EKG 01/2024 Vent. Rate : 066 BPM Atrial Rate : 066 BPM P-R Int : 222 ms QRS Dur : 116 ms QT Int : 432 ms P-R-T Axes : 039 -37 012 degrees QTc Int : 452 ms Sinus rhythm with 1st degree A-V block Left axis deviation Septal infarct , age undetermined Abnormal ECG When compared with ECG of 10-MAR-2023 13:15, Septal infarct is now Present Assessment and Plan Assessment Anesthesia Assessment: Chart Reviewed Documented by User: Chanelle Atkinson MD 08/22/24 14:17 [facility] Past Medical History Medical History Heart murmur Diabetic neuropathy Vaginal pain Cellulitis of right anterior lower leg Bruising Dissociative identity disorder Mild cognitive impairment Breast cancer screening by mammogram Back pain Cognitive impairment Hallucinations Richard Leg swelling Peripheral vascular disease Uterine prolapse GERD (gastroesophageal reflux disease) Polysubstance abuse Type 2 diabetes mellitus with hyperglycemia Asthma Fatty liver Obesity (BMI 30-39.9) Hypercholesterolemia Hypertension Chronic hepatitis C Diarrhea Dementia Family History Family History Father Diabetes Hypertension Mother Hypertension Diabetes CVD (cardiovascular disease) CAD (coronary artery disease) Maternal Aunt Myocardial infarction Cancer Maternal Uncle Myocardial infarction Sister Ovarian cancer Sister History of breast cancer Family history of problems with anesthesia: No Surgical History Surgical History H/O colonoscopy History of ectopic History of tonsillectomy History of cholecystectomy History of Problems with Anesthesia: No Social History Social History Household Members: Significant Other Housing: House Do you presently have visiting nurse or other home services: Yes (RN vists once daily) Unable to assess alcohol history related to: Unknown Alcohol intake: never Comment: Non skid socks Patient Tobacco Use Status: Former Tobacco user Tobacco use type: Cigarette e-Cigarette/Vaping Use: Never Used Second Hand Smoke Exposure: No Use of substances other than those prescribed or required for medical reasons: No Substance Use Type: Caffiene Are you DNR?: No Advance Directives: No Advance Directives Information Provided: Yes Advance Directives Date on File: 01/27/24 Nutrition Risks: No Nutritional Risk Patient : No service: No Sexual orientation: Straight/Heterosexual Cognitive needs: No Hearing needs: No Vision needs: Yes Meds Allergies Allergy/AdvReac Type Severity Reaction Status Date / Time haloperidol [HALOPERIDOL] Allergy Intermediate SWELLING Verified 07/26/24 11:21 carbamazepine [From Tegretol] Allergy Mild RASH, Verified 07/26/24 11:21 TREMORS lithium [[place]] Allergy Mild RASH, Verified 07/26/24 11:21 CRAWLING OUT OF SKIN olanzapine [From Zyprexa] Allergy Mild RICHARD Verified 07/26/24 11:21 quetiapine [From Seroquel] Allergy Mild SWELLING Verified 07/26/24 11:21 WHOLE BODY, RICHARD topiramate [From TOPAMAX] Allergy Unknown RICHARD, SI Verified 07/26/24 11:21 trazodone [TRAZODONE] Allergy Unknown SYNCOPE Verified 07/26/24 11:21 aripiprazole [From ABILIFY] AdvReac Severe EXTREME SI Verified 07/26/24 11:21 amlodipine AdvReac Intermediate leg Verified 07/26/24 11:21 swelling empagliflozin AdvReac Intermediate facial rash Verified 07/26/24 11:21 [From Jardiance] metformin AdvReac Intermediate Diarrhea Verified 07/26/24 11:21 pioglitazone AdvReac Intermediate leg Verified 07/26/24 11:21 swelling lamotrigine [From Lamictal] AdvReac Mild RICHARD Verified 07/26/24 11:21 modafinil [From Provigil] AdvReac Mild RICHARD Verified 07/26/24 11:21 prednisone AdvReac Agitated Verified 08/22/24 12:47 ALL ANTI DEPRESSENTS Allergy Unknown I GO Uncoded 04/04/24 16:02 MANIC All anti-depressants Allergy Unknown manic, rash Uncoded 04/04/24 16:02 From GEODON Allergy Unknown LETHARGY Uncoded 04/04/24 16:02 From WELLBUTRIN AdvReac Unknown AGITATION, Uncoded 04/04/24 16:02 MAVIS Home Medications ?Medication ?Instructions ?Recorded ?Confirmed ?Last Taken ?Type propranolol 20 mg tablet 20 mg PO TID 03/09/23 04/04/24 08/22/24 History darifenacin 7.5 mg tablet,extended 7.5 mg PO DAILY 03/10/23 04/04/24 01/27/24 History release 24 hr mirabegron 25 mg tablet,extended 25 mg PO BEDTIME 01/27/24 04/04/24 01/26/24 History release 24 hr (Myrbetriq) pioglitazone 15 mg tablet 15 mg PO DAILY 07/26/24 Unknown History Exam Airway Mallampati Class: II TM Dist: >3cm Neck ROM: Full Partial: Upper Heart: rrr Lungs: cta Assessment and Plan Assessment Anesthesia Assessment: Anesthesia Plan Discussed Final Anesthetic Review Family History of Problems with Anesthesia: No History of Problems with Anesthesia: No NPO: Yes ASA Class: III Final Preanesthetic Review: No Changes in Pt Med Stat, Meds/Allgs Chart Reviewed, Consent Obtained/Reviewed, Anes Risks/Benef Reviewed and DNR Form (If Appl.) Patient Risk: Intermediate Anesthetic Plan Anesthetic Plan: GA Disposition: Standard PACU
[2024-08-22] VITALS (8 sets, daily range): BP systolic 147–160; BP diastolic 83–95; PULSE 62–79; RESP 16–20; TEMP -13.9–36.7; O2SAT 88–98; BMI 36.3
[2024-08-22 13:17] LABS: Glucose, Whole Blood 136 mg/dL (60-115)
[2024-08-22] MEDS: Lactated Ringers 1,000 ML 100 ML IVCONT (13:19)
--- NOTE | 2024-08-22 14:28 | MHC.SHP ---
Pre-Procedural Eval Section A - 24 Hr Update-Section A only Date of Service: 08/22/24 The patient is an INPATIENT: No Changes since office visit: No Cold of Flu in the past 2 weeks, No New Medical Problems, No Changes in Medication and No Patient answered all questions The patient has been examined within 24 hours of the surgical procedure. The History & Physical has been completed within 30 days and I have reviewed it.: Yes Section B - Complete if H&P > 30 days Chief Complaint: Polyp of corpus uteri Allergies: Allergies Allergy/AdvReac Type Severity Reaction Status Date / Time haloperidol [HALOPERIDOL] Allergy Intermediate SWELLING Verified 07/26/24 11:21 carbamazepine [From Tegretol] Allergy Mild RASH, Verified 07/26/24 11:21 TREMORS lithium [[place]] Allergy Mild RASH, Verified 07/26/24 11:21 CRAWLING OUT OF SKIN olanzapine [From Zyprexa] Allergy Mild RICHARD Verified 07/26/24 11:21 quetiapine [From Seroquel] Allergy Mild SWELLING Verified 07/26/24 11:21 WHOLE BODY, RICHARD topiramate [From TOPAMAX] Allergy Unknown RICHRAD, SI Verified 07/26/24 11:21 trazodone [TRAZODONE] Allergy Unknown SYNCOPE Verified 07/26/24 11:21 aripiprazole [From ABILIFY] AdvReac Severe EXTREME SI Verified 07/26/24 11:21 amlodipine AdvReac Intermediate leg Verified 07/26/24 11:21 swelling empagliflozin AdvReac Intermediate facial rash Verified 07/26/24 11:21 [From Jardiance] metformin AdvReac Intermediate Diarrhea Verified 07/26/24 11:21 pioglitazone AdvReac Intermediate leg Verified 07/26/24 11:21 swelling lamotrigine [From Lamictal] AdvReac Mild RICHARD Verified 07/26/24 11:21 modafinil [From Provigil] AdvReac Mild RICHARD Verified 07/26/24 11:21 prednisone AdvReac Agitated Verified 08/22/24 12:47 ALL ANTI DEPRESSENTS Allergy Unknown I GO Uncoded 04/04/24 16:02 MANIC All anti-depressants Allergy Unknown manic, rash Uncoded 04/04/24 16:02 From GEODON Allergy Unknown LETHARGY Uncoded 04/04/24 16:02 From WELLBUTRIN AdvReac Unknown AGITATION, Uncoded 04/04/24 16:02 MAVIS Plan Diagnosis/Plan: Unchanged I have reviewed the history and physical and performed a pertinent physical examination on my patient. No changes have occurred unless specified. Time Spent With Patient Time: Total time managing care of this patient today ____ minutes.
--- NOTE | 2024-08-22 15:00 | PM.OP ---
Brief Operative Note Date of Service: 08/22/24 Pre-op diagnosis: Abnormal endometrial possible endometrial polyp by ultrasound Post-op diagnosis: same (Endometrial polyp) Procedure: Hysteroscopy D&C, Polypectomy Surgeon: Mahamed Sanford MD Anesthesia: GLMA Was an Physician Practice Consultant used for this Procedure?: No Estimated blood loss (mL): 0 Pathology: other (Endometrial Scrapping. Polyp) Condition: stable Disposition: PACU
--- NOTE | 2024-08-22 15:01 | W.PM.OPN ---
Operative Note Operative Note Date of Service: 08/22/24 Narrative: Preop Diagnosis: Abnormal endometrium/Endometrial polyp by US Operation: Diagnostic Hysteroscopy, Dilataion & Curettage and polypectomy Post Op Diagnosis: Endometrial Polyp QBL: Minimal Anesthesia: GLMA Surgeon: Mahamed Sanford MD Health Care Facilities Inspector: None Complication: None Pathology: Endometrial Scrapings, Endometrial polyp Procedure: The patient was put in the dorsal lithotomy position, scrubbed, and draped in the usual manner. A sterile speculum was inserted in the patient's vagina. The anterior lip of the cervix was grasped with a single tooth tenaculum. The cervix was dilated up to 5 mm, then the scope was inserted in the patient's uterus. Inspection revealed endometrial polyp. The Myosure Reach device was used; it was introduced through the operative channel and polypectomy done with no complications. The scope was then taken out from the uterine cavity, sharp curettings was carried on with minimal to moderate amount of tissues retrieved. At the end of the procedure, all instruments were taken out of the patient uterine and vaginal cavity. The single tooth tenaculum was removed and homeostasis was assured using pressure,. The patient tolerated the procedure well and was transferred to the PACU in a stable condition.
== END 2024-08-22 16:26 | disposition home or self-care (01) ==
PROVIDERS: PCP Internal Medicine; Visit Provider Obstetrics & Gynecology
PROC: 0UDB8ZZ Extraction of Endometrium, Via Natural or Artificial Opening Endoscopic (ICD-10-PCS; CPT 58558; principal; 2024-08-22 14:30)
DX: N84.0 Polyp of corpus uteri (principal); E11.40 Type 2 diabetes mellitus with diabetic neuropathy, unspecified; E11.65 Type 2 diabetes mellitus with hyperglycemia; I73.9 Peripheral vascular disease, unspecified; J45.909 Unspecified asthma, uncomplicated; I10 Essential (primary) hypertension; E78.00 Pure hypercholesterolemia, unspecified; K76.0 Fatty (change of) liver, not elsewhere classified; F03.90 Unspecified dementia, unspecified severity, without behavioral disturbance, psychotic disturbance, mood disturbance, and anxiety; F44.81 Dissociative identity disorder; B18.2 Chronic viral hepatitis C; R44.3 Hallucinations, unspecified; Z79.85 Long-term (current) use of injectable non-insulin antidiabetic drugs; Z79.84 Long term (current) use of oral hypoglycemic drugs; Z79.899 Other long term (current) drug therapy; Z88.8 Allergy status to other drugs, medicaments and biological substances; Z90.721 Acquired absence of ovaries, unilateral; F19.10 Other psychoactive substance abuse, uncomplicated; Z90.49 Acquired absence of other specified parts of digestive tract; Z87.891 Personal history of nicotine dependence
CPT/HCPCS: 58558; 82947; 88305; J0131; J2003; J2250; J2405; J2704; J3010

== ENCOUNTER → 2024-08-22 12:30 | Outpatient (BNV) | payer OTHER, SELFPAY | PROVIDERS: PCP Internal Medicine; Visit Provider Obstetrics & Gynecology | DX: N84.0 Polyp of corpus uteri (principal) | CPT/HCPCS: 58558 ==

== ENCOUNTER 2024-08-29 12:50 | Outpatient (AMB) | payer OTHER, SELFPAY ==
--- NOTE | 2024-08-29 12:54 | A.OFFVIS_ITS ---
Vital Signs 08/29/24 12:56 Height 5 ft 2 in Weight 196 lb BMI 35.8 Intake Visit Reasons: post op Allergies haloperidol [HALOPERIDOL] Allergy (Intermediate, Verified 07/26/24 11:21) SWELLING carbamazepine [From Tegretol] Allergy (Mild, Verified 07/26/24 11:21) RASH, TREMORS lithium [[place]] Allergy (Mild, Verified 07/26/24 11:21) RASH, CRAWLING OUT OF SKIN olanzapine [From Zyprexa] Allergy (Mild, Verified 07/26/24 11:21) RICHARD quetiapine [From Seroquel] Allergy (Mild, Verified 07/26/24 11:21) SWELLING WHOLE BODY, RICHARD topiramate [From TOPAMAX] Allergy (Unknown, Verified 07/26/24 11:21) RICHARD, SI trazodone [TRAZODONE] Allergy (Unknown, Verified 07/26/24 11:21) SYNCOPE aripiprazole [From ABILIFY] Adverse Reaction (Severe, Verified 07/26/24 11:21) EXTREME SI amlodipine Adverse Reaction (Intermediate, Verified 07/26/24 11:21) leg swelling empagliflozin [From Jardiance] Adverse Reaction (Intermediate, Verified 07/26/24 11:21) facial rash metformin Adverse Reaction (Intermediate, Verified 07/26/24 11:21) Diarrhea pioglitazone Adverse Reaction (Intermediate, Verified 07/26/24 11:21) leg swelling lamotrigine [From Lamictal] Adverse Reaction (Mild, Verified 07/26/24 11:21) RICHARD modafinil [From Provigil] Adverse Reaction (Mild, Verified 07/26/24 11:21) RICHARD prednisone Adverse Reaction (Verified 08/22/24 12:47) Agitated ALL ANTI DEPRESSENTS Allergy (Unknown, Uncoded 04/04/24 16:02) I GO MANIC All anti-depressants Allergy (Unknown, Uncoded 04/04/24 16:02) manic, rash From GEODON Allergy (Unknown, Uncoded 04/04/24 16:02) LETHARGY From WELLBUTRIN Adverse Reaction (Unknown, Uncoded 04/04/24 16:02) AGITATION, MAVIS HPI Comments Details: The patient is presenting post hysteroscopy D&C no complaints minimal vaginal bleeding no feverishness chills or abdominal pain. The pathology showed the following: A. Endometrium, polypectomy: - Fragment of papillary mucinous epithelium. - Abundant background fragments of endometrial polyp. See comment. B. Endometrium, curettage: - Superficial fragments of mucinous epithelium. - Admixed inactive endometrium. - Squamous epithelium within normal limits. See comment. Comment: The papillary mucinous epithelium is of uncertain significance. It may represent metaplastic change; a mucinous neoplasm is also in the differential. Recommend repeat sampling after an appropriate interval (e.g. 3-4 months) [facility] Medical History Heart murmur Diabetic neuropathy Vaginal pain Cellulitis of right anterior lower leg Bruising Dissociative identity disorder Mild cognitive impairment Breast cancer screening by mammogram Back pain Cognitive impairment Hallucinations Richard Leg swelling Peripheral vascular disease Uterine prolapse GERD (gastroesophageal reflux disease) Polysubstance abuse Type 2 diabetes mellitus with hyperglycemia Asthma Fatty liver Obesity (BMI 30-39.9) Hypercholesterolemia Hypertension Chronic hepatitis C Diarrhea Dementia Surgical History H/O colonoscopy History of ectopic History of tonsillectomy History of cholecystectomy Family History Father Diabetes Hypertension Mother Hypertension Diabetes CVD (cardiovascular disease) CAD (coronary artery disease) Maternal Aunt Myocardial infarction Cancer Maternal Uncle Myocardial infarction Sister Ovarian cancer Sister History of breast cancer Social History Household Members: Significant Other Housing: House Do you presently have visiting nurse or other home services: Yes (RN vists once daily) Unable to assess alcohol history related to: Unknown Alcohol intake: never Comment: Non skid socks Patient Tobacco Use Status: Former Tobacco user Tobacco use type: Cigarette e-Cigarette/Vaping Use: Never Used Second Hand Smoke Exposure: No Substance Use Type: Caffiene Advance Directives Date on File: 01/27/24 service: No Sexual orientation: Straight/Heterosexual Cognitive needs: No Hearing needs: No Vision needs: Yes Female Reproductive History Menstrual Age of Menarche: 12 Review of Systems Const All systems reviewed & are unremarkable except as noted in HPI and below Reports as per HPI and Reports no additional complaints GI Reports no additional complaints Reports no additional complaints Physical Exam Vital Signs: BMI result Body Mass Index 35.8 Assessment & Plan Assessment & Plan (1) Endometrial polyp: Comment: Papilalry Mucinous epithelium on pathology Code(s): N84.0 - Polyp of corpus uteri Category: Medical Plan: Discussed with the patient the results the pathology, papillary mucinous changes of uncertain significance, It may represent metaplastic change in addition to a mucinous neoplasm which is also in the differential diagnosis per pathology report. All questions answered, the patient has verbalized understanding. Referral to [facility] On[facility] was placed . Appointment scheduled with Dr. Blakely on 09/07 at 10:20, the patient is aware Orders: Referrals Gynecologic Oncology Referral N84.0 - Polyp of corpus uteri Coding Level of Care Code Est Pt Level 3 (19318) Diagnoses Endometrial polyp N84.0
[2024-08-29 12:56] VITALS: BMI 35.8
== END 2024-08-29 13:37 | disposition home or self-care (01) ==
LOC: HO.HWS 12:51
PROVIDERS: PCP Internal Medicine; Visit Provider Obstetrics & Gynecology
DX: N84.0 Polyp of corpus uteri (principal)
CPT/HCPCS: 99213

== ENCOUNTER → 2024-08-29 12:50 | Outpatient (BNVA) | payer OTHER, SELFPAY | PROVIDERS: PCP Internal Medicine; Visit Provider Obstetrics & Gynecology | DX: N84.0 Polyp of corpus uteri (principal) | CPT/HCPCS: 99212 ==

== ENCOUNTER 2024-10-05 10:25 | Outpatient (AMB) | payer OTHER, SELFPAY ==
--- NOTE | 2024-10-05 10:41 | A.OFFPC_ITS ---
Vital Signs 10/05/24 10:45 Height 5 ft 2 in Weight 193 lb 8 oz BMI 35.4 BP 120/70 Blood Pressure Location Lt brachial Position Sitting Pulse 76 Pulse Source Pulse Oximeter Temp 97.1 F Temp Source Skin Pulse Oximetry (%) 96 Oxygen Delivery Method Room Air Intake Visit Reasons: Pre-op surgery 10/06/23 Intake Note: Patient is here for a Pre-op for Hysterectomy scheduled with [facility] ( Carlos Cathy [phone]) on 10/16/24. Yeast Maker Required: No Director Revenue: Present Accompanied by: Spouse Allergies bupropion Allergy (Intermediate, Verified 10/05/24 11:01) Unknown haloperidol [HALOPERIDOL] Allergy (Intermediate, Verified 10/05/24 11:01) SWELLING paroxetine Allergy (Intermediate, Verified 10/05/24 11:01) Unknown risperidone Allergy (Intermediate, Verified 10/05/24 11:01) Unknown carbamazepine [From Tegretol] Allergy (Mild, Verified 10/05/24 11:01) RASH, TREMORS lithium [[place]] Allergy (Mild, Verified 10/05/24 11:01) RASH, CRAWLING OUT OF SKIN olanzapine [From Zyprexa] Allergy (Mild, Verified 10/05/24 11:01) RICHARD quetiapine [From Seroquel] Allergy (Mild, Verified 10/05/24 11:01) SWELLING WHOLE BODY, RICHARD topiramate [From TOPAMAX] Allergy (Unknown, Verified 10/05/24 11:01) RICHARD, SI trazodone [TRAZODONE] Allergy (Unknown, Verified 10/05/24 11:01) SYNCOPE aripiprazole [From ABILIFY] Adverse Reaction (Severe, Verified 10/05/24 11:01) EXTREME SI amlodipine Adverse Reaction (Intermediate, Verified 10/05/24 11:01) leg swelling empagliflozin [From Jardiance] Adverse Reaction (Intermediate, Verified 10/05/24 11:01) facial rash metformin Adverse Reaction (Intermediate, Verified 10/05/24 11:01) Diarrhea pioglitazone Adverse Reaction (Intermediate, Verified 10/05/24 11:01) leg swelling lamotrigine [From Lamictal] Adverse Reaction (Mild, Verified 10/05/24 11:01) RICHARD modafinil [From Provigil] Adverse Reaction (Mild, Verified 10/05/24 11:01) RCIHARD prednisone Adverse Reaction (Verified 10/05/24 11:01) Agitated aripiprazole lauroxil Allergy (Intermediate, Uncoded 10/05/24 11:01) Unknown Valproate Allergy (Intermediate, Uncoded 10/05/24 11:01) Vomiting ALL ANTI DEPRESSENTS Allergy (Unknown, Uncoded 10/05/24 11:01) I GO MANIC All anti-depressants Allergy (Unknown, Uncoded 10/05/24 11:01) manic, rash From GEODON Allergy (Unknown, Uncoded 10/05/24 11:01) LETHARGY Sertraline Adverse Reaction (Intermediate, Uncoded 10/05/24 11:01) Anxiety ziprasidone Adverse Reaction (Intermediate, Uncoded 10/05/24 11:01) Unknown From WELLBUTRIN Adverse Reaction (Unknown, Uncoded 10/05/24 11:01) AGITATION, MAVIS Medication List - Last Reconciled 10/05/24 by Aura Avalos PA-C albuterol sulfate 90 mcg/actuation 2 inhalations inhalation Q6-8H PRN atorvastatin 20 mg PO DAILY benztropine 0.5 mg PO TID blood pressure monitor (Blood Pressure Kit) As directed blood sugar diagnostic (FreeStyle Lite Strips) As directed check the BS QD blood-glucose meter (FreeStyle Lite Meter kit) As directed clonazepam 0.5 mg PO Q8H PRN cyclobenzaprine 5 mg PO TID PRN darifenacin ER 7.5 mg PO DAILY [Depends As directed] empagliflozin (Jardiance) 10 mg PO DAILY fluticasone propion-salmeterol 250-50 mcg/dose (Advair Diskus) 1 inh inhalation BID gabapentin 400 mg PO BID lisinopril 40 mg PO DAILY loxapine succinate 5 mg PO BID loxapine succinate 10 mg PO BID meclizine 25 mg PO DAILY meloxicam 15 mg PO DAILY 90 days memantine 10 mg PO BID 90 days metronidazole 500 mg PO BID 7 days miconazole nitrate 2% (Zeasorb AF) 1 appl topical BID mirabegron ER 25 mg PO DAILY 90 days pioglitazone 15 mg PO DAILY propranolol 20 mg PO TID tirzepatide 7.5 mg (0.5 mL) subcut QWEEK 4 weeks Tobacco use date assessed: 10/05/24 Fall risk assessment: No Falls in past year Last assessed Fall Risk: 10/05/24 Dental Screening Dental Screen Date: 10/05/24 Did you have a dental visit in the last 12 months?: Yes Did you have a dental problem in the last 6 months where you did not have access to dental care?: No Was dental information given to patient?: Patient has dentist HPI Pre-op surgery 10/06/23 HPI Details 64-year-old female with past medical his tory of diabetes mellitus, hypercholesterolemia, hypertension and schizoaffective disorder last seen by Dr. Craven 06/2024 coming in for preoperative visit.? In review of the notes, patient was seen by [facility] gynecology 09/22/2024 for evaluation of IN polyp on the uterine lining recommending hysterectomy with bilateral salpingo-oophorectomy ordered for CBC and CMP.? Patient is scheduled to have surgery 10/16/2024 Diabetes mellitus: A1c 09/05/2024 5.9% presently on Jardiance, Tirzepatide Hypertension: Blood pressure at goal today 120/70 on propranolol, lisinopril Patient has had surgery and anesthesia in the past without complication. No history of MT, CVA or CHF. [facility] Medical History Heart murmur Diabetic neuropathy Vaginal pain Cellulitis of right anterior lower leg Bruising Dissociative identity disorder Mild cognitive impairment Breast cancer screening by mammogram Back pain Cognitive impairment Hallucinations Richard Leg swelling Peripheral vascular disease Uterine prolapse GERD (gastroesophageal reflux disease) Polysubstance abuse Type 2 diabetes mellitus with hyperglycemia Asthma Fatty liver Obesity (BMI 30-39.9) Hypercholesterolemia Hypertension Chronic hepatitis C Diarrhea Dementia Surgical History H/O colonoscopy History of ectopic History of tonsillectomy History of cholecystectomy Family History Father Diabetes Hypertension Mother Hypertension Diabetes CVD (cardiovascular disease) CAD (coronary artery disease) Maternal Aunt Myocardial infarction Cancer Maternal Uncle Myocardial infarction Sister Ovarian cancer Sister History of breast cancer Social History Household Members: Significant Other Housing: House Do you presently have visiting nurse or other home services: Yes (RN vists once daily) Unable to assess alcohol history related to: Unknown Alcohol intake: never Comment: Non skid socks Patient Tobacco Use Status: Former Tobacco user Tobacco use type: Cigarette e-Cigarette/Vaping Use: Never Used Second Hand Smoke Exposure: Yes Substance Use Type: Caffiene Advance Directives Date on File: 01/27/24 service: No Current occupational status: disabled Sexual orientation: Straight/Heterosexual Cognitive needs: No Hearing needs: No Vision needs: Yes (Glasses) Female Reproductive History Menstrual Age of Menarche: 12 Questionnaire PHQ-9 Over the last 2 weeks, how often have you been bothered by any of the following problems? 1. Little interest or pleasure in doing things: not at all 2. Feeling down, depressed, or hopeless: not at all 3. Trouble falling or staying asleep, or sleeping too much: several days (Has therapist) 4. Feeling tired or having little energy: not at all 5. Poor appetite or overeating: not at all 6. Feeling bad about yourself - or that you are a failure or have let yourself or your family down: not at all 7. Trouble concentrating on things, such as reading the newspaper or watching television: not at all 8. Moving or speaking so slowly that other people could have noticed. Or the opposite - being so fidgety or restless that you have been moving around a lot more than usual: not at all 9. Thoughts that you would be better off or of hurting yourself in some way: not at all Total score: 1 Depression Screening Interpretation: Negative Depression Screening Done: Yes Source: Developed by Drs. Rolando Argueta, Pippa Frances, Lars Alvarado and colleagues, with an educational bharat from [employer]. Thrive Questionnaire Date Thrive assessed: 10/05/24 I am a: Patient What is your living situation today?: I have a steady place to live Within the past 12 months, did the food you bought not last and you didn't have the money to get more?: Never true Within the past 12 months, did you worry whether your food would run out before you got money to buy more?: Never true Do you have trouble paying for medicines?: No Do you have trouble getting transportation to medical appointments?: No Do you have trouble paying your heating and electricity bill?: No Do you have trouble taking care of your child, family member or friend?: No Do you have trouble with day-to-day activities such as bathing, preparing meals, shopping, managing finances, etc.?: No Are you currently unemployed and looking for a job?: No Are you interested in more education?: No Please select the resources that you would like help with: None Currently or been in a relationship where the following occur: No concerns reported THRIVE Score: 0 AUDIT C Alcohol Use Questionnaire (AUDIT-C) 1. How often do you have a drink containing alcohol?: Never Total Score: 0 MARYANN-7 AMB Questionnaire MARYANN-7 Date MARYANN - 7 assessed: 10/05/24 Feeling nervous, anxious, or on edge: 0 = Not at all Not being able to stop or control worryin = Not at all Worrying too much about different things: 0 = Not at all Trouble relaxin = Not at all Being so restless that it is hard to sit still: 0 = Not at all Becoming easily annoyed or irritable: 0 = Not at all Feeling afraid as if something awful might happen: 0 = Not at all Total MARYANN-7 score (0-4 normal; 5-9 mild; 10-14 moderate; 15-21 severe): 0 Source: Developed by Drs. Rolando Argueta, Pippa Frances, Lars Alvarado and colleagues, with an educational bharat from [employer]. Review of Systems Const Denies body aches, Denies fatigue, Denies fever(s), Denies frequent falls, Denies headache(s) and Denies weakness Eyes Reports no additional complaints and Denies change in vision ENT Denies dysphagia, Denies dizziness, Denies facial pain, Denies headache(s), Denies nasal congestion and Denies odynophagia Card Denies chest pain, Denies syncope, Denies irregular heart rhythm, Denies leg edema, Denies lightheadedness and Denies dyspnea Resp Denies cough and Denies dyspnea GI Denies abdominal pain, Denies constipation, Denies dysphagia, Denies dyspepsia, Denies diarrhea, Denies nausea, Denies odynophagia and Denies vomiting Denies urinary frequency, Denies dysuria, Denies urinary hesitancy and Denies urinary urgency Musc Denies back pain and Denies myalgias Skin/Breast Reports system reviewed and no additional complaints, except as documented Neuro Denies dizziness, Denies syncope, Denies frequent falls, Denies headache(s) and Denies weakness Psych Reports no additional complaints Endo Denies fatigue Physical exam (Primary Care) Vital Signs: Last Vital Signs Temp 97.1 F 10/05/24 10:45 Pulse 76 10/05/24 10:45 BP 120/70 10/05/24 10:45 Pulse Ox 96 10/05/24 10:45 Oxygen Delivery Method Room Air 10/05/24 10:45 BMI result Body Mass Index 35.4 Tobacco/Smoking Status: Tobacco use Status Tobacco use date assessed 10/05/24 10/05/24 10:52 Patient Tobacco Use Status Former Tobacco user 10/05/24 10:45 Tobacco use type Cigarette 10/05/24 10:45 e-Cigarette/Vaping Use Never Used 10/05/24 10:45 PHQ-9: PHQ-9 Score PHQ-9: Total score 1 10/05/24 10:52 Depression Screening Interpretation: Negative Thrive Assessment: Date of Thrive Assessment Date Thrive assessed 10/05/24 10/05/24 10:45 Currently or been in a relationship where the following occur: No concerns reported Const General: cooperative, healthy appearing, comfortable and no acute distress Orientation/consciousness: patient oriented x3 HENMT Head: Yes normocephalic Ears: hearing grossly normal bilaterally General nose exam: Normal external nose present Eyes General: appearance normal, both eyes and all related structures Conjunctivae: conjunctivae normal Neck Neck: Yes full ROM and Yes no lymphadenopathy Resp Effort & Inspection: normal respiratory effort Auscultation: clear to auscultation bilaterally, no crackles, no rales, no rhonchi and no wheezes Cardio Rate: regular rate Rhythm: regular rhythm Skin General skin exam: no rashes or lesions noted Neuro General: patient oriented x3 Gait exam (Neuro): Normal gait present Extrem General: Yes normal to inspection, Yes full ROM and No edema Psych Affect: normal affect Attitude: cooperative Insight: Good insight present (Psych) Judgement: Good judgement present (Psych) Coding Level of Care Code Est Pt Level 3 (96636) Diagnoses Pre-op exam Z01.818 Assessment & Plan Assessment & Plan (1) Pre-op exam: Code(s): Z01.818 - Encounter for other preprocedural examination Category: Medical Plan: Regarding preop clearance, the patient is at moderate risk for proposed surgery due to age however comorbidities are well managed at this time. Reviewed with the patient that no surgery is completely free of risk and that this examination is to assist the surgeon in reviewing informed consent. Discussed with the patient that clearance would be granted after CBC, CMP and EKG were completed and within normal limits and once a updated medication list can be provided to the office. With regards to medication Tirzepatide we will need to be discontinued 1 week prior to surgery along with any NSAIDs. The Jardiance will need to be discontinued 4 days prior to surgery. All other medications may be taken up until the day of the procedure and held on the morning of the procedure and resume normally after the procedure. Patient to provide our office with updated med list to ensure this information is accurate and up-to-date. Addendum will be added to this note once lab testing and EKG have been completed and evaluated and note will be faxed to surgeon. Plan This note was constructed using voice recognition software. While every effort has been made to ensure accuracy and senior benefits analyst, still areas may have been included sometimes these areas may affect the content or meeting of the given symptoms. Total time spent caring for the patient today was 30 minutes. This includes time spent before the visit reviewing the chart, time spent during the visit, and time spent after the visit and documentation. Orders: Orders Comprehensive Met. Panel Today Z01.818 - Encounter for other preprocedural examination Complete Blood Count Auto Diff Today Z01.818 - Encounter for other preprocedural examination ECG 12 lead EKG Today Z01.818 - Encounter for other preprocedural examination
[2024-10-05 10:45] VITALS: BP 120/70; PULSE 76; TEMP 36.2; O2SAT 96; BMI 35.4
== END 2024-10-05 11:17 | disposition home or self-care (01) ==
PROVIDERS: PCP Internal Medicine
DX: Z01.818 Encounter for other preprocedural examination (principal)

== ENCOUNTER → 2024-10-05 10:25 | Outpatient (BNVA) | payer OTHER, SELFPAY | PROVIDERS: PCP Internal Medicine | DX: Z01.818 Encounter for other preprocedural examination (principal) | CPT/HCPCS: 99212 ==

== ENCOUNTER → 2024-10-06 08:52 | Outpatient (REF) | payer OTHER, SELFPAY ==
--- NOTE | 2024-10-06 08:56 | ECG_ITS ---
Test Reason : PREOP Blood Pressure : */* mmHG Vent. Rate : 75 BPM Atrial Rate : 75 BPM P-R Int : 216 ms QRS Dur : 116 ms QT Int : 426 ms P-R-T Axes : 52 -59 29 degrees QTcB Int : 475 ms Sinus rhythm with 1st degree A-V block Left anterior fascicular block Minimal voltage criteria for LVH, may be normal variant ( [place] product ) Abnormal ECG When compared with ECG of 27-Jan-2024 11:25, Criteria for Septal infarct are no longer Present Referred By: Aura Avalos Electronically Signed By: MARC QIU MD
[2024-10-06 09:15] LABS: MANUAL DIFF FLAG NO
[2024-10-06 09:42] LABS: Basophils Absolute Auto 0.1 X10*3/uL (0.0-0.2); Basophils Percent Auto 0.8 % (0-2); Eosinophils Absolute Auto 0.3 X10*3/uL (0.0-0.4); Eosinophils Percent Auto 3.8 % (0-4); Hematocrit 45.2 % (37.0-47.0); Hemoglobin 14.7 g/dl (12.0-16.0); Imm Gran Abs Auto 0.02 X10*3/uL (0.00-0.03); Imm Gran Pct Auto 0.2 % (0.0-0.4); Lymphocytes Absolute Auto 2.9 X10*3/uL (1.2-4.9); Lymphocytes Percent Auto 34.1 % (20-40); Mean Corpuscular HGB Conc 32.5 g/dl (31.0-35.0); Mean Corpuscular Hemoglobin 28.5 pg (27.0-33.0); Mean Corpuscular Volume 87.6 fL (80.0-98.0); Mean Platelet Volume 9.9 fL (9.4-12.3); Monocytes Absolute Auto 0.7 X10*3/uL (0.1-1.2); Monocytes Percent Auto 7.6 % (2-11); Neutrophils Absolute Auto 4.6 x10*3/uL (2.0-8.3); Neutrophils Percent Auto 53.5 % (45-73); Platelet Count 180 X10*3/uL (160-400); Red Blood Count 5.16 X10*6/uL (4.20-5.50); Red Cell Distribution Width 14.6 % (11.0-16.0); White Blood Count 8.6 X10*3/uL (4.8-10.8)
[2024-10-06 10:23] LABS: Alanine Aminotransferase 43 U/L (0-31); Albumin Level 3.9 g/dL (3.5-5.0); Alkaline Phosphatase 148 U/L (39-117); Anion Gap 8 (12-20); Aspartate Amino Transferase 47 U/L (5-31); Bilirubin Total 0.7 mg/dL (0.0-1.0); Blood Urea Nitrogen 17 mg/dL (9-16); Calcium 9.2 mg/dL (8.4-10.2); Carbon Dioxide 26 mmol/L (22-29); Chloride 107 mmol/L (96-108); Estimated Glomerular Filt Rate 56; Glucose Random 166 mg/dL (60-115); Potassium 4.4 mmol/L (3.3-5.1); Sodium 137 mmol/L (135-145); Total Protein 7.9 g/dL (6.5-8.0)
== END ==
LOC: HO.CARD 08:52
PROVIDERS: PCP Internal Medicine
DX: Z01.818 Encounter for other preprocedural examination (principal)
CPT/HCPCS: 36415; 80053; 85025; 93005

== ENCOUNTER → 2024-10-06 08:56 | Outpatient (BNV) | payer OTHER, SELFPAY | PROVIDERS: PCP Internal Medicine; Visit Provider Internal Medicine Cardiovascular Disease | DX: I44.0 Atrioventricular block, first degree (principal) | CPT/HCPCS: 93010 ==

== ENCOUNTER 2024-12-26 14:30 | Outpatient (AMB) | payer OTHER, SELFPAY ==
--- NOTE | 2024-12-26 14:41 | A.OFFPC_ITS ---
Vital Signs 12/26/24 14:42 Height 5 ft 2 in Weight 189 lb BMI 34.6 BP 130/72 Blood Pressure Location Lt brachial Position Sitting Pulse 75 Pulse Source Pulse Oximeter Temp 97.3 F Temp Source Temporal Artery Scan Pulse Oximetry (%) 93 Oxygen Delivery Method Room Air Intake Visit Reasons: DM Intake Note: Patient is here to follow up on DM. Scrap Preparation Supervisor Required: No Sheet Metal Layout Worker: Not Required per policy Accompanied by: Self / Same As Patient Allergies bupropion Allergy (Intermediate, Verified 12/26/24 14:42) Unknown haloperidol [HALOPERIDOL] Allergy (Intermediate, Verified 12/26/24 14:42) SWELLING paroxetine Allergy (Intermediate, Verified 12/26/24 14:42) Unknown risperidone Allergy (Intermediate, Verified 12/26/24 14:42) Unknown carbamazepine [From Tegretol] Allergy (Mild, Verified 12/26/24 14:42) RASH, TREMORS lithium [[place]] Allergy (Mild, Verified 12/26/24 14:42) RASH, CRAWLING OUT OF SKIN olanzapine [From Zyprexa] Allergy (Mild, Verified 12/26/24 14:42) RICHARD quetiapine [From Seroquel] Allergy (Mild, Verified 12/26/24 14:42) SWELLING WHOLE BODY, RICHARD topiramate [From TOPAMAX] Allergy (Unknown, Verified 12/26/24 14:42) RICHARD, SI trazodone [TRAZODONE] Allergy (Unknown, Verified 12/26/24 14:42) SYNCOPE aripiprazole [From ABILIFY] Adverse Reaction (Severe, Verified 12/26/24 14:42) EXTREME SI amlodipine Adverse Reaction (Intermediate, Verified 12/26/24 14:42) leg swelling empagliflozin [From Jardiance] Adverse Reaction (Intermediate, Verified 12/26/24 14:42) facial rash metformin Adverse Reaction (Intermediate, Verified 12/26/24 14:42) Diarrhea pioglitazone Adverse Reaction (Intermediate, Verified 12/26/24 14:42) leg swelling lamotrigine [From Lamictal] Adverse Reaction (Mild, Verified 12/26/24 14:42) RICHARD modafinil [From Provigil] Adverse Reaction (Mild, Verified 12/26/24 14:42) RICHARD prednisone Adverse Reaction (Verified 12/26/24 14:42) Agitated aripiprazole lauroxil Allergy (Intermediate, Uncoded 12/26/24 14:42) Unknown Valproate Allergy (Intermediate, Uncoded 12/26/24 14:42) Vomiting ALL ANTI DEPRESSENTS Allergy (Unknown, Uncoded 12/26/24 14:42) I GO MANIC All anti-depressants Allergy (Unknown, Uncoded 12/26/24 14:42) manic, rash From GEODON Allergy (Unknown, Uncoded 12/26/24 14:42) LETHARGY Sertraline Adverse Reaction (Intermediate, Uncoded 12/26/24 14:42) Anxiety ziprasidone Adverse Reaction (Intermediate, Uncoded 12/26/24 14:42) Unknown From WELLBUTRIN Adverse Reaction (Unknown, Uncoded 12/26/24 14:42) AGITATION, MAVIS Tobacco use date assessed: 12/26/24 Fall risk assessment: No Falls in past year Last assessed Fall Risk: 12/26/24 Dental Screening Dental Screen Date: 10/05/24 [facility] Medical History (Updated 12/26/24 @ 15:27 by Kira Craven MD) Heart murmur Diabetic neuropathy Vaginal pain Cellulitis of right anterior lower leg Bruising Dissociative identity disorder Mild cognitive impairment Breast cancer screening by mammogram Back pain Cognitive impairment Hallucinations Richard Leg swelling Peripheral vascular disease Uterine prolapse GERD (gastroesophageal reflux disease) Polysubstance abuse Type 2 diabetes mellitus with hyperglycemia Asthma Fatty liver Obesity (BMI 30-39.9) Hypercholesterolemia Hypertension Chronic hepatitis C Diarrhea Dementia Surgical History (Updated 12/26/24 @ 14:48 by BEN Burk) History of hysterectomy S/P MONET-BSO H/O colonoscopy History of ectopic History of tonsillectomy History of cholecystectomy Family History Father Diabetes Hypertension Mother Hypertension Diabetes CVD (cardiovascular disease) CAD (coronary artery disease) Maternal Aunt Myocardial infarction Cancer Maternal Uncle Myocardial infarction Sister Ovarian cancer Sister History of breast cancer Social History Household Members: Significant Other Housing: House Do you presently have visiting nurse or other home services: Yes (RN vists once daily) Unable to assess alcohol history related to: Unknown Alcohol intake: never Comment: Non skid socks Patient Tobacco Use Status: Former Tobacco user Tobacco use type: Cigarette e-Cigarette/Vaping Use: Never Used Second Hand Smoke Exposure: Yes Substance Use Type: Caffiene Advance Directives Date on File: 01/27/24 service: No Current occupational status: disabled Sexual orientation: Straight/Heterosexual Cognitive needs: No Hearing needs: No Vision needs: Yes (Glasses) Female Reproductive History Menstrual Age of Menarche: 12 Questionnaire Thrive Questionnaire Date Thrive assessed: 10/05/24 MARYANN-7 AMB Questionnaire MARYANN-7 Date MARYANN - 7 assessed: 10/05/24 Source: Developed by Drs. Rolando Argueta, Pippa Frances, Lars Alvarado and colleagues, with an educational bharat from [employer]. Physical exam (Primary Care) Vital Signs: Last Vital Signs Temp 97.3 F 12/26/24 14:42 Pulse 75 12/26/24 14:42 BP 130/72 12/26/24 14:42 Pulse Ox 93 12/26/24 14:42 Oxygen Delivery Method Room Air 12/26/24 14:42 BMI result Body Mass Index 34.6 Tobacco/Smoking Status: Tobacco use Status Tobacco use date assessed 12/26/24 12/26/24 14:47 Patient Tobacco Use Status Former Tobacco user 12/26/24 14:47 Tobacco use type Cigarette 12/26/24 14:47 e-Cigarette/Vaping Use Never Used 12/26/24 14:47 Thrive Assessment: Date of Thrive Assessment Date Thrive assessed 10/05/24 12/26/24 14:47 Const General: alert; No acute distress Eyes Conjunctivae: conjunctivae normal Resp Auscultation: clear to auscultation bilaterally Cardio Rate: regular rate Rhythm: regular rhythm GI Inspection: Yes normal to inspection Extrem General: Yes normal to inspection and No edema Results AMB Hemoglobin A1c AMB Hemoglobin A1c 6.3 % Last Edit by BEN Burk on 12/26/24 14:59 Results Reviewed Results Reviewed: Laboratory Last Values Hgb A1c (Clinic) 6.3 % (4.0-6.0) H 12/26/24 14:39 Coding Level of Care Code Est Pt Level 4 (88472) Complex EM visit Add On G2211 Diagnoses Type 2 diabetes mellitus with hyperglycemia, without long-term current use of insulin E11.65 Diabetes mellitus fdc insulin use: without exterminator termite use Gastroesophageal reflux disease without esophagitis K21.9 Esophagitis presence: without esophagitis Obesity (BMI 30-39.9) E66.9 Hypercholesterolemia E78.00 Essential hypertension I10 Hypertension type: essential hypertension Schizoaffective disorder, bipolar type F25.0 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 Negro Code(s): E11.65 - Type 2 diabetes mellitus with hyperglycemia Category: Medical Qualifiers: Diabetes mellitus exterminator termite insulin use: without fdc use Qualified Code(s): E11.65 - Type 2 diabetes mellitus with hyperglycemia Plan: Decrease the amount of carbohydrate intake, pasta, bread, rice and potatoes are all sugar and that is aside from all the sweet stuff, remember that fruits are good but they are Sweet also. On Jardiance 10 mg once a day pioglitazone 50 mg once a day and tirzepatide (2) GERD (gastroesophageal reflux disease): Code(s): K21.9 - Gastro-esophageal reflux disease without esophagitis Category: Medical Qualifiers: Esophagitis presence: without esophagitis Qualified Code(s): K21.9 - Gastro-esophageal reflux disease without esophagitis Plan: Avoid the foods that causes that usually spicy foods, tomato products, juices, coffee, soda and foods that your sensitive to. After eating do not lie down, allow 3-4 hours before in lie down. And keep the head of bed above 30 degrees to avoid the acid from going up. (3) Obesity (BMI 30-39.9): Code(s): E66.9 - Obesity, unspecified Category: Medical Plan: Diet and exercise (4) Hypercholesterolemia: Code(s): E78.00 - Pure hypercholesterolemia, unspecified Category: Medical Plan: Avoid fried foods, chicken skin, eggs, butter margarine, pastries and meat. Be it pork or beef they have a lot of cholesterol LDL goal of less than 100 and triglyceride of less than 150 on atorvastatin 20 mg once a day need blood work (5) Hypertension: Code(s): I10 - Essential (primary) hypertension Category: Medical Qualifiers: Hypertension type: essential hypertension Qualified Code(s): I10 - Essential (primary) hypertension Plan: Continue with blood pressure medication. Decrease salt intake and exercise lisinopril 40 mg once a day propranolol 20 mg 3 times a day (6) Schizoaffective disorder, bipolar type: Comment: [facility] Code(s): F25.0 - Schizoaffective disorder, bipolar type Category: Medical Plan: Continue with counseling and therapy (7) Endometrial intraepithelial neoplasia (EIN): Comment: September 2024 TAHBSO Code(s): N85.02 - Endometrial intraepithelial neoplasia [EIN] Category: Medical Plan: Status post TAHBSO doing good Plan History of Present Illness The patient is a 64-year-old female presenting for a follow-up regarding her chronic conditions and postoperative care. She has a significant medical history that includes obesity, controlled type 2 diabetes mellitus, GERD, hypercholesterolemia, hypertension, peripheral vascular disease, and schizoaffective disorder, bipolar type. Recently, she underwent surgery in September 2024 after a diagnosis of endometrial intraepithelial neoplasia, which was addressed with a total abdominal hysterectomy with bilateral salpingo- oophorectomy. Her postoperative recovery has been uncomplicated, and she is monitored for her chronic conditions. Her diabetes management is currently stable, as indicated by improved glucose control, with an HbA1c level of 6.3, owing to the regimen of Jardiance, pioglitazone, and tirzepatide. In terms of cholesterol management, a recent test in January confirmed efforts to maintain targeted LDL and triglyceride levels, highlighting the role of dietary management and atorvastatin in her care routine. The patient maintains a healthy diet primarily consisting of green leafy vegetables; she has exhibited consistent efforts in weight management, reflecting in her recent noted weight loss. She reported soft stools in the morning but denied any episodes of constipation or diarrhea. There were no significant updates regarding her vaccinations; her last mammogram was conducted in July 2024. The conversation confirmed that she is continuing her active lifestyle with an intention to further incorporate exercise into her routine. Health Maintenance - Received tetanus, RSV, pneumonia, and shingles vaccinations - Monthly Jardiance 10 mg, pioglitazone 15 mg, and tirzepatide injections for diabetes management - Plan for LDL target <100 mg/dL and triglycerides <150 mg/dL with atorvastatin 20 mg - Blood pressure management with lisinopril 40 mg and propranolol 20 mg three times daily - Dietary modifications for weight management and fiber intake Social History - Active lifestyle with attempts to increase exercise - Dietary intake includes green leafy vegetables - Engages in weight management efforts Review of Systems - Gastrointestinal: Reports morning soft stools; denies constipation and significant diarrhea Physical Exam Results - Labs: Elevated liver enzymes, creatinine stable at 1.0 mg/dL, HbA1c 6.3, blood sugar 166 mg/dL Plan The ongoing management focuses on holistic care by continuing effective regimens for type 2 diabetes, hypertension, and hypercholesterolemia. Her diabetes is managed with a combination of medications while incorporating a diet rich in vegetables to aid in weight loss and enhance glycemic control. Blood pressure medications are maintained, emphasizing the need for consistent blood pressure monitoring. The cholesterol management plan includes the use of atorvastatin to achieve LDL and triglyceride targets. Dietary recommendations emphasize fiber intake and nutrient-rich foods to support digestive health and weight management, alongside promoting a more active lifestyle to enhance overall health. The patient?s post-operative recovery from the recent hysterectomy is stable, with advice to continue regular follow-ups to assess recovery. Health maintenance will be ongoing with scheduled fasting blood tests and timely vaccination updates. Clear communication regarding medication needs and future diagnostic assessments is encouraged. Patient was informed and verbally consented to the use of an ambient scribe for clinic note documentation during this visit. Discussion Notes During the consultation, discussions focused on the effective management of the patient's chronic conditions through current medication regimens, including the use of Jardiance, pioglitazone, tirzepatide for diabetes, and atorvastatin for lipid management. Risks and benefits were detailed, emphasizing compliance with prescribed therapies. I highlighted the importance of regular monitoring of blood glucose and blood pressure, advising the patient on dietary practices to facilitate healthful digestion and promote weight management. The postoperative status following hysterectomy for endometrial intraepithelial neoplasia shows normal recovery, and the patient was reassured on the absence of complications. Discussions included maintaining cardiovascular risk parameters, establishing an LDL goal of less than 100 mg/dL through the ongoing lipid management plan. Health maintenance strategies were reviewed, ensuring the up-to-date status of vaccinations and planning for future health screenings. The patient is encouraged to maintain regular communication and follow up as necessary while being aware of the importance of scheduled fasting blood tests. Patient Instructions - Continue current medications for diabetes, hypertension, and cholesterol as prescribed - Maintain a diet rich in vegetables, focusing on high fiber intake - Regularly check blood glucose and blood pressure at home - Engage in regular physical activity to assist with weight management - Adhere to all scheduled vaccinations, and remain up to date - Communicate with the office for any prescription renewals needed - Plan for fasting blood work when scheduled - Return for follow-up visits as advised - Report any new or worsening symptoms promptly Orders: Orders AMB Hemoglobin A1c Today E11.65 - Type 2 diabetes mellitus with hyperglycemia Comprehensive Met. Panel Today . - Type 2 diabetes mellitus with hyperglycemia Complete Blood Count Auto Diff Today . - Type 2 diabetes mellitus with hyperglycemia Free T4 (Free Thyroxine) Today E11. - Type 2 diabetes mellitus with hyperglycemia Thyroid Stimulating Hormone Today E11. - Type 2 diabetes mellitus with hyperglycemia Hemoglobin A1c Today E11. - Type 2 diabetes mellitus with hyperglycemia Vitamin D 25-OH Total Today . - Type 2 diabetes mellitus with hyperglycemia Microalbumin, Random (w Creat) Today E11. - Type 2 diabetes mellitus with hyperglycemia UA CC w/rflx Micro + Cult Today E11. - Type 2 diabetes mellitus with hyperglycemia, R30.0 - Dysuria Creatinine Urine Today E11.65 - Type 2 diabetes mellitus with hyperglycemia Vitamin B12 and Folate Today E11.65 - Type 2 diabetes mellitus with hyperglycemia Lipid Panel Today E11.65 - Type 2 diabetes mellitus with hyperglycemia, E78.00 - Pure hypercholesterolemia, unspecified
[2024-12-26 14:42] VITALS: BP 130/72; PULSE 75; TEMP 36.3; O2SAT 93; BMI 34.6
--- OUTSIDE RECORDS SUMMARY | 2024-12-26 17:40 | XMS_ITS | Clinical Summary ---
Author Organization [address] [facility] Address [address] [place] [address] Phone Care Team Providers Care Windows Phone Developer Name Role Phone Kira Craven MD Primary Care Provider [phone] Social History Tobacco Use Types Packs/Day Years Used Date Smoking Tobacco: Never Assessed Comments Unknown Sex and Gender Information Value Date Recorded Sex Assigned at Not on file Legal Sex Female 2:14 AM EST Gender Identity Not on file Sexual Orientation Not on file Plan of Treatment Upcoming Encounters Date Type Department Care Team ([facility] Contact Info) Description 12/27/2024 2:00 PM EDT Consult Orthopedic Surgery - [place] [id number] [id number] [place], DPM [address] [id number] Health Maintenance Due Date Last Done Comments Breast Cancer Screening 1960 Diabetes: Annual GFR (Glomer ular Filtration Rate) 1960 Diabetes: Annual Foot Exam 1970 Diabetes: Annual Retina Eye Exam 1970 DTaP,Tdap,and Td Vaccines (1 - Tdap) 1979 Pneumococcal Vaccine: 50+ Ye ars (1 of 2 - PCV) 1979 Pneumococcal Vaccine: Pediat rics (0 to 5 Years) and At-Risk Patients (6 to 64 Years) (1 of 2 - PCV) 1979 Cervical Cancer Screening: P ap Smear 1981 Zoster Vaccines (1 of 2) 2010 COVID-19 Vaccine (2023-2 5 season) 2024 Influenza Vaccine (#1) 2024 Cholesterol Screening (Lipid Panel) 11/08/2024 Colorectal Cancer Screening: Colonoscopy 11/08/2024 Depression Screening 11/08/2024 Diabetes: Annual Urine Albumin-Creatinine Ratio (uACR) 11/08/2024 Diabetes: Blood Sugar Contro l Test (HGBA1C) 11/08/2024 HIV Screening 11/08/2024 Hepatitis C Screening 11/08/2024 Medicare Annual Wellness Visit 11/08/2024 Social Influencers of Health Screening 11/08/2024 RSV Immunization Adult Patie nts (1 - 1-dose 75+ series) 2035 HIB Vaccines Aged Out No longer eligi ble based on patient's age to complete this topic HPV Vaccines Aged Out No longer eligi ble based on patient's age to complete this topic Hepatitis A Vaccines Aged Out No long er eligible based on patient's age to complete this topic Hepatitis B Vaccines Aged Out No long er eligible based on patient's age to complete this topic IPV Vaccines Aged Out No longer eligi ble based on patient's age to complete this topic MMR Vaccines Aged Out No longer eligi ble based on patient's age to complete this topic Meningococcal ACWY Vaccine Aged Out N o longer eligible based on patient's age to complete this topic Meningococcal B Vaccine Aged Out No l onger eligible based on patient's age to complete this topic RSV Immunization Patients Un tono 20 months Aged Out No longer eligible b ased on patient's age to complete this topic Varicella Vaccines Aged Out No longer eligible based on patient's age to complete this topic [place] [address] MEDICARE Member Subscriber Plan / Payer (Ef fective 2018-Present) Name:Mouna Najera Relation to Subscriber:Self Name:Mouna Najera Payer ID:[id number] Group ID:[id number] Type:Not on file Address: [facility] [address] [id number] Care Teams Windows Phone Developer Relationship Specialty Start Date End Date Kria Craven MD [address] [place] [address] [address] [facility] [place] [address] PCP - General Internal Medicine 11/08/24
== END 2024-12-26 15:35 | disposition home or self-care (01) ==
LOC: HO.HMCH 14:31
PROVIDERS: PCP Internal Medicine; Visit Provider Internal Medicine
DX: E11.65 Type 2 diabetes mellitus with hyperglycemia (principal); F25.0 Schizoaffective disorder, bipolar type; E66.9 Obesity, unspecified; Z68.34 Body mass index [BMI] 34.0-34.9, adult; K21.9 Gastro-esophageal reflux disease without esophagitis; E78.00 Pure hypercholesterolemia, unspecified; I10 Essential (primary) hypertension; N85.02 Endometrial intraepithelial neoplasia [EIN]

== ENCOUNTER → 2024-12-26 14:30 | Outpatient (BNVA) | payer OTHER, SELFPAY | PROVIDERS: PCP Internal Medicine; Visit Provider Internal Medicine | DX: E11.65 Type 2 diabetes mellitus with hyperglycemia (principal); K21.9 Gastro-esophageal reflux disease without esophagitis; E78.00 Pure hypercholesterolemia, unspecified; E66.9 Obesity, unspecified; I10 Essential (primary) hypertension; F25.0 Schizoaffective disorder, bipolar type; N85.02 Endometrial intraepithelial neoplasia [EIN] | CPT/HCPCS: 83036; 99212 ==

== ENCOUNTER 2025-05-24 15:36 | Outpatient (AMB) | payer OTHER, SELFPAY ==
--- NOTE | 2025-05-24 15:51 | A.OFFPC_ITS ---
Vital Signs 05/24/25 15:54 Height 5 ft 2 in Weight 192 lb 2 oz BMI 35.1 BP 124/78 Blood Pressure Location Lt brachial Position Sitting Pulse 73 Pulse Source Pulse Oximeter Temp 97.1 F Temp Source Temporal Artery Scan Pulse Oximetry (%) 95 Oxygen Delivery Method Room Air Intake Visit Reasons: DM Intake Note: Patient is here to follow up on DM. Laboratory Helper Required: No Automatic Machine Attendant: Present Accompanied by: Daughter Allergies bupropion Allergy (Intermediate, Verified 05/24/25 15:53) Unknown haloperidol (HALOPERIDOL) Allergy (Intermediate, Verified 05/24/25 15:53) SWELLING paroxetine Allergy (Intermediate, Verified 05/24/25 15:53) Unknown risperidone Allergy (Intermediate, Verified 05/24/25 15:53) Unknown carbamazepine (From Tegretol) Allergy (Mild, Verified 05/24/25 15:53) RASH, TREMORS lithium (Keller) Allergy (Mild, Verified 05/24/25 15:53) RASH, CRAWLING OUT OF SKIN olanzapine (From Zyprexa) Allergy (Mild, Verified 05/24/25 15:53) RICHARD quetiapine (From Seroquel) Allergy (Mild, Verified 05/24/25 15:53) SWELLING WHOLE BODY, RICHARD topiramate (From TOPAMAX) Allergy (Unknown, Verified 05/24/25 15:53) RICHARD, SI trazodone (TRAZODONE) Allergy (Unknown, Verified 05/24/25 15:53) SYNCOPE aripiprazole (From ABILIFY) Adverse Reaction (Severe, Verified 05/24/25 15:53) EXTREME SI amlodipine Adverse Reaction (Intermediate, Verified 05/24/25 15:53) leg swelling empagliflozin (From Jardiance) Adverse Reaction (Intermediate, Verified 05/24/25 15:53) facial rash metformin Adverse Reaction (Intermediate, Verified 05/24/25 15:53) Diarrhea pioglitazone Adverse Reaction (Intermediate, Verified 05/24/25 15:53) leg swelling lamotrigine (From Lamictal) Adverse Reaction (Mild, Verified 05/24/25 15:53) RICHARD modafinil (From Provigil) Adverse Reaction (Mild, Verified 05/24/25 15:53) RICHARD prednisone Adverse Reaction (Verified 05/24/25 15:53) Agitated aripiprazole lauroxil Allergy (Intermediate, Uncoded 05/24/25 15:53) Unknown Valproate Allergy (Intermediate, Uncoded 05/24/25 15:53) Vomiting ALL ANTI DEPRESSENTS Allergy (Unknown, Uncoded 05/24/25 15:53) I GO MANIC All anti-depressants Allergy (Unknown, Uncoded 05/24/25 15:53) manic, rash From GEODON Allergy (Unknown, Uncoded 05/24/25 15:53) LETHARGY Sertraline Adverse Reaction (Intermediate, Uncoded 05/24/25 15:53) Anxiety ziprasidone Adverse Reaction (Intermediate, Uncoded 05/24/25 15:53) Unknown From WELLBUTRIN Adverse Reaction (Unknown, Uncoded 05/24/25 15:53) AGITATION, MAVIS Medication List - Last Reconciled 05/24/25 by Kira Craven MD albuterol sulfate 90 mcg/actuation 2 inhalations inhalation Q6-8H PRN atorvastatin 20 mg PO DAILY benztropine 0.5 mg PO TID blood pressure monitor (Blood Pressure Kit) As directed blood sugar diagnostic (FreeStyle Lite Strips) As directed check the QD blood-glucose meter (FreeStyle Lite Meter kit) As directed clonazepam 0.5 mg PO Q8H PRN cyclobenzaprine 5 mg PO TID PRN darifenacin ER 7.5 mg PO DAILY [Depends As directed] empagliflozin (Jardiance) 10 mg PO DAILY fluticasone propion-salmeterol 250-50 mcg/dose (Wixela Inhub) 1 inh inhalation BID gabapentin 400 mg PO BID lisinopril 40 mg PO DAILY loxapine succinate 5 mg PO BID loxapine succinate 10 mg PO BID meclizine 25 mg PO DAILY meloxicam 15 mg PO DAILY 90 days memantine 10 mg PO BID 90 days metronidazole 500 mg PO BID 7 days miconazole nitrate 2% (Zeasorb AF) 1 appl topical BID mirabegron ER 25 mg PO DAILY 90 days pioglitazone 15 mg PO DAILY propranolol 20 mg PO TID tirzepatide 10 mg (0.5 mL) subcut QWEEK 4 weeks Tobacco use date assessed: 12/26/24 Fall risk assessment: No Falls in past year Last assessed Fall Risk: 05/24/25 Dental Screening Dental Screen Date: 10/05/24 [facility] Medical History (Updated 12/26/24 @ 15:27 by Kira Craven MD) Heart murmur Diabetic neuropathy Vaginal pain Cellulitis of right anterior lower leg Bruising Dissociative identity disorder Mild cognitive impairment Breast cancer screening by mammogram Back pain Cognitive impairment Hallucinations Richard Leg swelling Peripheral vascular disease Uterine prolapse GERD (gastroesophageal reflux disease) Polysubstance abuse Type 2 diabetes mellitus with hyperglycemia Asthma Fatty liver Obesity (BMI 30-39.9) Hypercholesterolemia Hypertension Chronic hepatitis C Diarrhea Dementia Surgical History History of hysterectomy S/P MONET-BSO H/O colonoscopy History of ectopic History of tonsillectomy History of cholecystectomy Family History Father Diabetes Hypertension Mother Hypertension Diabetes CVD (cardiovascular disease) CAD (coronary artery disease) Maternal Aunt Myocardial infarction Cancer Maternal Uncle Myocardial infarction Sister Ovarian cancer Sister History of breast cancer Social History Household Members: Significant Other Housing: House Do you presently have visiting nurse or other home services: Yes (RN vists once daily) Unable to assess alcohol history related to: Unknown Alcohol intake: never Comment: Non skid socks Patient Tobacco Use Status: Former Tobacco user Tobacco use type: Cigarette e-Cigarette/Vaping Use: Never Used Second Hand Smoke Exposure: Yes Substance Use Type: Caffiene Advance Directives Date on File: 01/27/24 service: No Current occupational status: disabled Sexual orientation: Straight/Heterosexual Cognitive needs: No Hearing needs: No Vision needs: Yes (Glasses) Female Reproductive History Menstrual Age of Menarche: 12 Questionnaire PHQ-9 Over the last 2 weeks, how often have you been bothered by any of the following problems? 1. Little interest or pleasure in doing things: several days 2. Feeling down, depressed, or hopeless: several days 3. Trouble falling or staying asleep, or sleeping too much: several days 4. Feeling tired or having little energy: several days 5. Poor appetite or overeating: several days 6. Feeling bad about yourself - or that you are a failure or have let yourself or your family down: several days 7. Trouble concentrating on things, such as reading the newspaper or watching television: several days 8. Moving or speaking so slowly that other people could have noticed. Or the opposite - being so fidgety or restless that you have been moving around a lot more than usual: not at all 9. Thoughts that you would be better off or of hurting yourself in some way: not at all Total score: 7 Depression Screening Interpretation: Positive Depression Screening Done: Yes Source: Developed by Drs. Rolando Argueta, Pippa Frances, Lars Alvarado and colleagues, with an educational bharat from [employer]. Thrive Questionnaire Date Thrive assessed: 05/17/25 I am a: Patient What is your living situation today?: I have a steady place to live Within the past 12 months, did the food you bought not last and you didn't have the money to get more?: Never true Within the past 12 months, did you worry whether your food would run out before you got money to buy more?: Sometimes True Do you have trouble paying for medicines?: No Do you have trouble getting transportation to medical appointments?: No Do you have trouble paying your heating and electricity bill?: I choose not to answer this question Do you have trouble taking care of your child, family member or friend?: I choose not to answer this question Do you have trouble with day-to-day activities such as bathing, preparing meals, shopping, managing finances, etc.?: Yes Are you currently unemployed and looking for a job?: No Are you interested in more education?: No Please select the resources that you would like help with: Daily support Currently or been in a relationship where the following occur: No concerns reported THRIVE Score: 1 AUDIT C Alcohol Use Questionnaire (AUDIT-C) 1. How often do you have a drink containing alcohol?: Never 3. How often do you have six or more drinks on one occasion?: Never Total Score: 0 MARYANN-7 AMB Questionnaire MARYANN-7 Date MARYANN - 7 assessed: 10/05/24 Feeling nervous, anxious, or on edge: 2 = More than half the days Not being able to stop or control worryin = Several days Worrying too much about different things: 1 = Several days Trouble relaxin = Several days Being so restless that it is hard to sit still: 1 = Several days Becoming easily annoyed or irritable: 1 = Several days Feeling afraid as if something awful might happen: 1 = Several days Total MARYANN-7 score (0-4 normal; 5-9 mild; 10-14 moderate; 15-21 severe): 8 Source: Developed by Drs. Rolando Argueta, Pippa Frances, Lars Alvarado and colleagues, with an educational bharat from [employer]. Physical exam (Primary Care) Vital Signs: Last Vital Signs Temp 97.1 F 05/24/25 15:54 Pulse 73 05/24/25 15:54 BP 124/78 05/24/25 15:54 Pulse Ox 95 05/24/25 15:54 Oxygen Delivery Method Room Air 05/24/25 15:54 BMI result Body Mass Index 35.1 Tobacco/Smoking Status: Tobacco use Status Tobacco use date assessed 12/26/24 05/24/25 16:05 Patient Tobacco Use Status Former Tobacco user 05/24/25 16:05 Tobacco use type Cigarette 05/24/25 16:05 e-Cigarette/Vaping Use Never Used 05/24/25 16:05 PHQ-9: PHQ-9 Score PHQ-9: Total score 7 05/24/25 16:34 Depression Screening Interpretation: Positive Thrive Assessment: Date of Thrive Assessment Date Thrive assessed 05/17/25 05/24/25 16:05 Currently or been in a relationship where the following occur: No concerns reported Const General: alert; No acute distress Eyes Conjunctivae: conjunctivae normal Resp Auscultation: clear to auscultation bilaterally Cardio Rate: regular rate Rhythm: regular rhythm GI Inspection: Yes normal to inspection Extrem General: Yes normal to inspection and No edema Results AMB Hemoglobin A1c AMB Hemoglobin A1c 7.1 % Last Edit by BEN Burk on 05/24/25 16:12 Immunizations pneumoc 20-silviano conj-dip cr(PF) 0.5 mL IM syringe Performing Provider: Kira Craven MD [facility] [place] [facility] Administered by: Raquel Owen LPN on 05/24/25 17:02 Dose Route Admin Location Dispensed Lot Number Expiration Date [facility] Customer Relations Coordinator 0.5 mL IM Left Deltoid 0.5 mL [id number] 06/19/26 [employer] Total Dispensed Waste 0.5 mL 0 % VIS Given Date VIS Provided VIS Publication Date 05/24/25 Single Vaccine 25 Eligibility Eligibility Date Funding Source Not VFC Eligible 05/24/25 Private Results Reviewed Results Reviewed: Laboratory Last Values Hgb A1c (Clinic) 7.1 % (4.0-6.0) H 05/24/25 15:51 Coding Level of Care Code Est Pt Level 4 (98008) Complex EM visit Add On G2211 Diagnoses Type 2 diabetes mellitus with hyperglycemia, without long-term current use of insulin E11.65 Diabetes mellitus [employer] insulin use: without [employer] use Essential hypertension I10 Hypertension type: essential hypertension Hypercholesterolemia E78.00 Bipolar 1 disorder F31.9 Gastroesophageal reflux disease without esophagitis K21.9 Esophagitis presence: without esophagitis Asthma, persistent controlled J45.998 Assessment & Plan Assessment & Plan (1) Type 2 diabetes mellitus with hyperglycemia: Comment: Dr. Negro Code(s): E11.65 - Type 2 diabetes mellitus with hyperglycemia Category: Medical Qualifiers: Diabetes mellitus [employer] insulin use: without [employer] use Qualified Code(s): E11.65 - Type 2 diabetes mellitus with hyperglycemia Plan: Decrease the amount of carbohydrate intake, pasta, bread, rice and potatoes are all sugar and that is aside from all the sweet stuff, remember that fruits are good but they are Sweet also. Hemoglobin A1c goal of less than 6.5. Patient is on Jardiance at 10 mg once a day pioglitazone 15 mg once a day and Armendariz's appetite prescribed 7.5 mg once a week (2) Hypertension: Code(s): I10 - Essential (primary) hypertension Category: Medical Qualifiers: Hypertension type: essential hypertension Qualified Code(s): I10 - Essential (primary) hypertension Plan: Continue with blood pressure medication. Decrease salt intake and exercise on propranolol 20 mg 3 times a day lisinopril 40 mg once a day (3) Hypercholesterolemia: Code(s): E78.00 - Pure hypercholesterolemia, unspecified Category: Medical Plan: Avoid fried foods, chicken skin, eggs, butter margarine, pastries and meat. Be it pork or beef they have a lot of cholesterol LDL goal of less than 100 and triglyceride of less than 150. Patient needs blood work (4) Bipolar 1 disorder: Code(s): F31.9 - Bipolar disorder, unspecified Category: Medical Plan: Continue with counseling and therapy (5) GERD (gastroesophageal reflux disease): Code(s): K21.9 - Gastro-esophageal reflux disease without esophagitis Category: Medical Qualifiers: Esophagitis presence: without esophagitis Qualified Code(s): K21.9 - Gastro-esophageal reflux disease without esophagitis Plan: Avoid the foods that causes that usually spicy foods, tomato products, juices, coffee, soda and foods that your sensitive to. After eating do not lie down, allow 3-4 hours before in lie down. And keep the head of bed above 30 degrees to avoid the acid from going up. (6) Asthma, persistent controlled: Code(s): J45.998 - Other asthma Category: Medical Plan: Continue with Wixela and albuterol Plan History of Present Illness The patient is a 65-year-old female presenting for a follow-up visit. She has a history of obesity and has recently experienced a 3-pound weight gain. Her diabetes mellitus is currently managed with medications, but her hemoglobin A1c has increased from 6.3 in December to 7.1, indicating suboptimal control. The patient has a history of gastroesophageal reflux disease, hypercholesterolemia, hypertension, and peripheral vascular disease. Her last blood work in September showed normal blood count and electrolytes, with good renal function, but elevated liver function tests. 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 Her preventative care includes a colonoscopy in 2016, a mammogram in July 2024, and a bone density test in 2017. Health Maintenance - Colonoscopy in 2016 - Mammogram in July 2024 - Bone density test in 2017 - Vaccinations: Shingles, Tetanus, RSV, and Pneumonia shot recommended Social History Review of Systems - Respiratory: Reports dyspnea at night, uses albuterol inhaler once in the morning and once at night - Gastrointestinal: Denies nausea, reports good bowel movements Physical Exam Results - Labs: Normal blood count, normal electrolytes, elevated liver function tests, hemoglobin A1c at 7.1 Plan Patient was informed and verbally consented to the use of an ambient scribe for clinic note documentation during this visit. 1. Diabetes Mellitus The patient's diabetes mellitus is currently managed with Jardiance 10 mg once daily, pioglitazone 15 mg once daily, and tirzepatide 7.5 mg once weekly. The goal is to achieve a hemoglobin A1c of less than 6.5. The patient is advised to continue with blood work and counseling. 2. Hypertension The patient's hypertension is managed with propranolol 20 mg three times daily and lisinopril 40 mg once daily. 3. Hypercholesterolemia The patient's LDL cholesterol goal is less than 100 mg/dL and triglycerides less than 150 mg/dL. 4. Asthma The patient is advised to continue using Wixela twice daily and albuterol as needed for asthma management. Discussion Notes During the visit, we discussed the management of diabetes mellitus, emphasizing the importance of maintaining a hemoglobin A1c below 6.5. We reviewed the patient's current medications, including Jardiance, pioglitazone, and tirzepatide, and reinforced the need for regular blood work and counseling. For hypertension, we confirmed the continuation of propranolol and lisinopril. We also discussed the cholesterol management goals and the importance of maintaining LDL and triglyceride levels within target ranges. Asthma management was reviewed, with instructions to continue Wixela and albuterol as needed. Patient Instructions - Continue taking Jardiance, pioglitazone, and tirzepatide as prescribed. - Maintain a hemoglobin A1c goal of less than 6.5. - Schedule and complete regular blood work and counseling sessions. - Continue taking propranolol and lisinopril for blood pressure management. - Aim to keep LDL cholesterol below 100 mg/dL and triglycerides below 150 mg/dL. - Use Wixela twice daily and albuterol as needed for asthma. Orders: Orders AMB Hemoglobin A1c Today E11.65 - Type 2 diabetes mellitus with hyperglycemia Pneumococcal 20 Immunization Today Z23 - Encounter for immunization Medications: Changed From tirzepatide 7.5 mg (0.5 mL) subcut QWEEK 4 weeks 2 mL 2RF E11.65 - Type 2 diabetes mellitus with hyperglycemia To tirzepatide 10 mg (0.5 mL) subcut QWEEK 2 mL 2RF 4 weeks E11.65 - Type 2 diabetes mellitus with hyperglycemia
[2025-05-24 15:54] VITALS: BP 124/78; PULSE 73; TEMP 36.2; O2SAT 95; BMI 35.1
--- OUTSIDE RECORDS SUMMARY | 2025-05-24 16:29 | XMS_ITS | Patient Health Record ---
Author Organization [facility] Address [address] [place] [address] Care Team Providers Care Field Artillery Crewmember Name Role Phone Kira Craven MD Primary Care Provider Mario Briones Jr Unavailable [phone] Reason For Referral No Information Medications Medication SIG (Take, Route, Frequency, Duration) Notes Start Date End Date Status Invega Active Lisinopril Active KlonoPIN Active Imitrex Active Problems Problem Type SNOMED Code ICD Code Onset Dates Problem Status W/U Status Risk Notes Problem Abnormal findings diagnostic imaging of liver and biliary tract (996950019) Nonspecific abnormal findings on radiological and other examination of biliary tract (793.3) Active confirmed Plan Of Treatment No Information Insurance Providers Payer Name Payer Address Payer Phone Subscriber Number Group Number Insured Name Patient Relationship to Insured Coverage Start Date Coverage End Date [place] [address] [place] [id number] RUDDY MURRIETA Self - patient is the insured MEDICAID OF [facility] [address] [place] [address] [id number] RUDDY MURRIETA Self - patient is the insured
--- OUTSIDE RECORDS SUMMARY | 2025-05-24 16:29 | XMS_ITS | Clinical Summary ---
Author Organization [address] [place] [address] Address [address] [place] [address] Phone Care Team Providers Care Cutting Room Supervisor Name Role Phone Kira Craven MD Primary Care Provider [phone] Allergies Active Allergy Reactions Criticality Noted Date Comments Aripiprazole 12/27/2024 Amlodipine 12/27/2024 Haloperidol 12/27/2024 [place] 12/27/2024 Quetiapine 12/27/2024 Carbamazepine 12/27/2024 Topiramate 12/27/2024 Trazodone 12/27/2024 Olanzapine 12/27/2024 Social History Tobacco Use Types Packs/Day Years Used Date Smoking Tobacco: Never Assessed Comments Unknown Sex and Gender Information Value Date Recorded Sex Assigned at Not on file Legal Sex Female 2:14 AM EST Gender Identity Not on file Sexual Orientation Not on file Plan of Treatment Upcoming Encounters Date Type Department Care Team ([facility] Contact Info) Description 06/19/2025 1:30 PM EDT Office Visit Orthopedic Surgery [place] [id number] [phone] [facility] DPM [address] [phone] Health Maintenance Due Date Last Done Comments Breast Cancer Screening 1960 Diabetes: Annual GFR (Glomerular Filtration Rate) 1960 Diabetes: Annual Foot Exam 1970 Diabetes: Annual Retina Eye Exam 1970 Hepatitis A Vaccines (1 of 2 - Risk 2-dose series) 1979 Cervical Cancer Screening: Pap Smear 1981 Pneumococcal Vaccine: 50+ Years (2 of 2 - PCV) 06/07/2015 06/07/2014, 08/17/2011 Hepatitis B Vaccines (1 of 3 - Risk 3-dose series) 2020 Depression Screening 09/20/2024 Cholesterol Screening (Lipid Panel) 11/08/2024 Colorectal Cancer Screening: Colonoscopy 11/08/2024 Diabetes: Annual Urine Albumin-Creatinine Ratio (uACR) 11/08/2024 Diabetes: Blood Sugar Control Test (HGBA1C) 11/08/2024 Hepatitis C Screening 11/08/2024 Medicare Annual Wellness Visit 11/08/2024 Osteoporosis Screening (Bone Density Screening) 11/08/2024 Social Influencers of Health Screening 11/08/2024 Hypertension/CHF/CAD Annual BMP Blood Test 12/27/2024 Falls Risk Assessment 2025 COVID-19 Vaccine ( season) 2025 07/29/2024, 10/12/2022, 09/09/2021, Additional history exists Influenza Vaccine (#1) 2025 , 07/01/2022, 06/17/2021, Additional history exists DTaP,Tdap,and Td Vaccines (2 - Td or Tdap) 04/21/2026 04/21/2016 Zoster Vaccines Completed 04/21/2020, 05/2018, 01/31/2018 RSV Immunization Adult Patients Completed 07/29/2024 HIB Vaccines Aged Out No longer eligi [...] to complete this topic RSV Immunization Patients Under 20 months Aged Out No longer eligible based on patient's age to complete this topic Varicella Vaccines Aged Out No longer eligible based on patient's age to complete this topic Insurance [facility] MEDICARE Member Subscriber Plan / Payer (Ef fective 2018-Present) Name:MOUNA MURRIETA Relation to Subscriber:Self Name:Mouna Murrieta Payer ID:[id number] Group ID:[id number] Type:Not on file Address: [address] [place] [address] Care Teams Cutting Room Supervisor Relationship Specialty Start Date End Date Kira Craven MD [address] [place] [address] Dr [address] [facility] [place] [address] PCP - General Internal Medicine 11/08/24
== END 2025-05-24 16:52 | disposition home or self-care (01) ==
LOC: HO.HMCH 15:37
PROVIDERS: PCP Internal Medicine; Visit Provider Internal Medicine
DX: E11.65 Type 2 diabetes mellitus with hyperglycemia (principal); I10 Essential (primary) hypertension; E78.00 Pure hypercholesterolemia, unspecified; F31.9 Bipolar disorder, unspecified; K21.9 Gastro-esophageal reflux disease without esophagitis; J45.998 Other asthma; Z23 Encounter for immunization

== ENCOUNTER → 2025-05-24 15:36 | Outpatient (BNVA) | payer OTHER, SELFPAY | PROVIDERS: PCP Internal Medicine; Visit Provider Internal Medicine | DX: E11.65 Type 2 diabetes mellitus with hyperglycemia (principal); E11.51 Type 2 diabetes mellitus with diabetic peripheral angiopathy without gangrene; I10 Essential (primary) hypertension; E78.00 Pure hypercholesterolemia, unspecified; F31.9 Bipolar disorder, unspecified; K21.9 Gastro-esophageal reflux disease without esophagitis; J45.998 Other asthma; Z23 Encounter for immunization | CPT/HCPCS: 83036; 90471; 90677; 96127; 99212 ==

== ENCOUNTER 2025-05-26 09:18 | Outpatient (REF) | payer OTHER, SELFPAY ==
--- OUTSIDE RECORDS SUMMARY | 2025-05-26 09:22 | XMS_ITS | Patient Health Record ---
Author Organization [facility] Address [address] [place] [address] Care Team Providers Care Craft Center Director Name Role Phone Kira Craven MD Primary Care Provider Mario Briones Jr Unavailable Reason For Referral No Information Medications Medication SIG (Take, Route, Frequency, Duration) Notes Start Date End Date Status Invega Active Lisinopril Active KlonoPIN Active Imitrex Active Problems Problem Type SNOMED Code ICD Code Onset Dates Problem Status W/U Status Risk Notes Problem Abnormal findings diagnostic imaging of liver and biliary tract ([id number]) Nonspecific abnormal findings on radiological and other examination of biliary tract (793.3) Active confirmed Plan Of Treatment No Information Insurance Providers Payer Name Payer Address Payer Phone Subscriber Number Group Number Insured Name Patient Relationship to Insured Coverage Start Date Coverage End Date MED[place]ARE [place] [address] [place] [id number] RUDDY MURRIETA Self - patient is the insured MEDICAID OF [facility] [address] [place] [address] [id number] RUDDY MURRIETA Self - patient is the insured
--- OUTSIDE RECORDS SUMMARY | 2025-05-26 09:22 | XMS_ITS | Clinical Summary ---
Author Organization [address] [place] [address] Address [address] [place] [address] Phone Care Team Providers Care Etl Tester Name Role Phone Kira Craven MD Primary Care Provider [phone] Allergies Active Allergy Reactions Criticality Noted Date Comments Aripiprazole 12/27/2024 Amlodipine 12/27/2024 Haloperidol 12/27/2024 [place] 12/27/2024 Quetiapine 12/27/2024 Carbamazepine 12/27/2024 Topiramate 12/27/2024 [...] Upcoming Encounters Date Type Department Care Team ([facility] Contact Info) Description 06/19/2025 1:30 PM EDT Office Visit Orthopedic Surgery [place] [phone] [phone] [facility] [place] DPM [address] [phone] Health Maintenance Due Date Last Done Comments [...] patient's age to complete this topic Insurance [facility] MEDICARE Member Subscriber Plan / Payer (Ef fective 2018-Present) Name:MOUNA MURRIETA Relation to Subscriber:Self Name:Mouna Murrieta Payer ID:[id number] Group ID:[id number] Type:Not on file Address: [address] [place] [address] Care Teams Etl Tester Relationship Specialty Start Date End Date Kira Craven MD [address] [place] [address] Dr [address] [facility] [place] [address] PCP - General Internal Medicine 11/08/24
[2025-05-26 09:51] LABS: MANUAL DIFF FLAG NO
[2025-05-26 11:26] LABS: Hematocrit 45.0 % (37.0-47.0); Hemoglobin 14.3 g/dl (12.0-16.0); Imm Gran Abs Auto 0.04 X10*3/uL (0.00-0.03); Imm Gran Pct Auto 0.4 % (0.0-0.4); Lymphocytes Absolute Auto 2.8 X10*3/uL (1.2-4.9); Mean Corpuscular HGB Conc 31.8 g/dl (31.0-35.0); Mean Corpuscular Hemoglobin 27.5 pg (27.0-33.0); Mean Corpuscular Volume 86.5 fL (80.0-98.0); NRBC Abs Auto 0.000 X10*3/uL (0.0-0.012); NRBC Pct Auto 0.0 /100WBC (0.0-0.2); Platelet Count 184 X10*3/uL (160-400); Red Blood Count 5.20 X10*6/uL (4.20-5.50); White Blood Count 8.9 X10*3/uL (4.8-10.8)
[2025-05-26 11:34] LABS: Hemoglobin A1C 199.4164 umol/L; Total Hemoglobin (HGBA1C) 3697.2777 umol/L
[2025-05-26 11:35] LABS: Appearance Urine Clear; Glucose Urine UA >=1000 mg/dL (Negative); PH 5.0 (5.0-9.0); Specific Gravity - Urine 1.025 (1.005-1.025); UMIC TRIGGER UACC YES
[2025-05-26 12:03] LABS: UACC Culture Trigger YES
[2025-05-26 12:18] LABS: Alanine Aminotransferase 37 U/L (0-31); Albumin Level 4.2 g/dL (3.5-5.0); Alkaline Phosphatase 143 U/L (39-117); Anion Gap 15 (12-20); Aspartate Amino Transferase 36 U/L (5-31); Blood Urea Nitrogen 23 mg/dL (9-16); Calcium 9.4 mg/dL (8.4-10.2); Carbon Dioxide 23 mmol/L (22-29); Chloride 107 mmol/L (96-108); Cholesterol 122 mg/dL (<200); Estimated Glomerular Filt Rate > 60; HDL Cholesterol 47 mg/dL (>40); Potassium 4.6 mmol/L (3.3-5.1); Sodium 140 mmol/L (135-145); Total Protein 7.8 g/dL (6.5-8.0); Triglycerides 129 mg/dL (<150)
[2025-05-26 12:26] LABS: Free T4 (Free Thyroxine) 1.18 ng/dL (0.71-1.85); Thyroid Stimulating Hormone 1.07 uIU/mL (0.32-4.0)
[2025-05-26 12:37] LABS: Microalbum/Creatinine Ratio Ur 11.2 ug/mg cr (<30)
[2025-05-26 12:46] LABS: Folate 6.1 ng/mL (> or = 4.0); Vitamin B12 607 pg/mL (200-900)
== END 2025-05-26 09:19 | disposition home or self-care (01) ==
LOC: HO.LAB 09:18
PROVIDERS: PCP Internal Medicine; Visit Provider Internal Medicine
DX: E11.65 Type 2 diabetes mellitus with hyperglycemia (principal); E78.00 Pure hypercholesterolemia, unspecified; R30.0 Dysuria
CPT/HCPCS: 36415; 80053; 80061; 81001; 82043; 82306; 82570; 82607; 82746; 83036; 84439; 84443; 85025; 87086

== ENCOUNTER 2025-08-20 07:59 | Outpatient (REF) | payer OTHER, SELFPAY ==
--- NOTE | ~2025-08-20 | MM_ITS ---
EXAMINATION: MM SCREENING DIGITAL BREAST TOMOSYNTHESIS, BILATERAL CLINICAL INFORMATION: Screening. Asymptomatic. COMPARISON: Mammography: Comparison is made with available priors TECHNIQUE: Digital breast mammography with tomosynthesis is performed in both the craniocaudal and mediolateral oblique views along with computer-aided detection (CAD). FINDINGS: There are scattered areas of fibroglandular density. There are no significant masses, abnormal calcifications, or other abnormalities. MM/MM tomosynthesis screening BI IMPRESSION: No mammographic evidence of malignancy. ASSESSMENT: BI-RADS Category 1: Negative RECOMMENDATION: Routine annual mammography screening. 1 year F/U This examination should not preclude the clinical evaluation of a suspicious palpable abnormality. This patient's information was entered into a reminder system with a target due date for their next mammogram. Electronically signed by: Jenae Lincoln DO 08/20/2025 09:35 AM LAMAR
--- OUTSIDE RECORDS SUMMARY | 2025-08-20 08:05 | XMS_ITS | Patient Health Record ---
Author Organization [facility] Address [address] [place] [address] Care Team Providers Care Facilities Director Name Role Phone Kira Craven MD [...] diagnostic imaging of liver and biliary tract ([id number]) Nonspecific abnormal findings on radiological and other examination of biliary tract (793.3) Active confirmed Plan Of Treatment No Information Insurance Providers Payer Name Payer Address Payer Phone Subscriber Number Group Number Insured Name Patient Relationship to Insured Coverage Start Date Coverage End Date [place] [address] [place] [phone] [id number] RUDDY MURRIETA Self - patient is the insured MEDICAID OF [facility] [address] [place] [address] [id number] RUDDY MURRIETA Self - patient is the insured
--- OUTSIDE RECORDS SUMMARY | 2025-08-20 08:06 | XMS_ITS | Clinical Summary ---
Author Organization [address] [facility] Address [address] [place] [address] Phone Care Team Providers Care Associate Consulting Engineer Name Role Phone Kira Craven MD Primary Care Provider [phone] Allergies Active Allergy Reactions Criticality Noted Date Comments Aripiprazole 12/27/2024 Amlodipine 12/27/2024 Bupropion Hcl 06/19/2025 Divalproex 06/19/2025 Haloperidol 12/27/2024 Lamotrigine 06/19/2025 [place] 12/27/2024 Modafinil 06/19/2025 Paroxetine Hcl 06/19/2025 Risperidone 06/19/2025 Quetiapine 12/27/2024 Sertraline 06/19/2025 Carbamazepine 12/27/2024 Topiramate 12/27/2024 Trazodone 12/27/2024 Ziprasidone Hcl 06/19/2025 Olanzapine 12/27/2024 Encounters Date Type Department Care Team Description 06/19/2025 1:30 PM EDT Office Visit [facility] [address] [place] [phone] Mt Shukla, DPM Dermatophytosis of nail (Primary Dx); Tinea pedis of both feet; Diabetic mononeuropathy simplex (CMS/HCC V24, CMS/HCC V28) from Last 3 Months Social History Tobacco Use Types Packs/Day Years Used Date Smoking Tobacco: Never Assessed Comments Unknown Sex and Gender Information Value Date Recorded Sex Assigned at Not on file Legal Sex Female 2:14 AM EST Gender Identity Not on file Sexual Orientation Not on file Plan of Treatment Upcoming Encounters Date Type Department Care Team ([facility] st Contact Info) Description 09/18/2025 10:30 AM EST Office Visit [facility] [address] [phone] Mt Shukla, DPM [address] [phone] Health Maintenance Due Date Last Done Comments Breast Cancer Screening 1960 Colorectal Cancer Screening: Colonoscopy 1960 Diabetes: Annual GFR (Glomerular Filtration Rate) 1960 Diabetes: Annual Foot Exam 1970 Diabetes: Annual Retina Eye Exam 1970 Hepatitis A Vaccines (1 of 2 - Risk 2-dose series) 1979 Cervical Cancer Screening: Pap Smear 1981 Hepatitis B Vaccines (1 of 3 - Risk 3-dose series) 2020 Depression Screening 09/20/2024 Cholesterol Screening (Lipid Panel) 11/08/2024 Diabetes: Annual Urine Albumin-Creatinine Ratio (uACR) [...] 01/31/2018 RSV Immunization Adult Patients Completed 07/29/2024 Pneumococcal Vaccine: 50+ Years Completed 05/24/2025, 06/07/2014, 08/17/2011 HIB Vaccines Aged Out No longer eligi [...] patient's age to complete this topic Insurance [employer] MEDICARE Member Subscriber Plan / Payer (Ef fective 2018-Present) Name:MOUNA MURRIETA Relation to Subscriber:Self Name:Mouna Murrieta Payer ID:[id number] Group ID:[id number] Type:Not on file Address: [address] [facility] [place] [address] Care Teams Associate Consulting Engineer Relationship Specialty Start Date End Date Kira Craven MD [address] [place] [address] [address] [facility] [place] [address] PCP - General Internal Medicine 11/08/24
== END 2025-08-20 08:00 | disposition home or self-care (01) ==
LOC: HO.MAMMO 07:59
PROVIDERS: PCP Internal Medicine; Visit Provider Internal Medicine
DX: Z12.31 Encounter for screening mammogram for malignant neoplasm of breast (principal)
CPT/HCPCS: 77063; 77067

== ENCOUNTER → 2025-08-20 08:15 | Outpatient (BNV) | payer OTHER, SELFPAY | PROVIDERS: PCP Internal Medicine; Visit Provider Internal Medicine | DX: Z12.31 Encounter for screening mammogram for malignant neoplasm of breast (principal) | CPT/HCPCS: 77063; 77067 ==

== ENCOUNTER 2025-09-14 14:32 | Outpatient (AMB) | payer OTHER, SELFPAY ==
--- OUTSIDE RECORDS SUMMARY | 2025-09-14 14:36 | XMS_ITS | Patient Health Record ---
Author Organization [facility] Address [address] [place] [address] Care Team Providers Care Cull Grader Name Role Phone Kira Craven MD Primary Care Provider Mario Briones Jr Unavailable [phone] Reason For Referral No Information Medications Medication SIG (Take, Route, Frequency, Duration) Notes Start Date End Date Status Invega Active Lisinopril Active KlonoPIN Active Imitrex Active Problems Problem Type SNOMED Code ICD Code Onset Dates Problem Status W/U Status Risk Notes Problem Abnormal findings diagnostic imaging of liver and biliary tract ([id number]) Nonspecific abnormal findings on radiological and other examination of biliary tract (793.3) Active confirmed Plan Of Treatment No Information Insurance Providers Payer Name Payer Address Payer Phone Subscriber Number Group Number Insured Name Patient Relationship to Insured Coverage Start Date Coverage End Date [place] [address] [place] [phone] [id number] RUDDY MURRIETA Self - patient is the insured MEDICAID OF [facility] [address] [place] [address] [id number] RUDDY MURRIETA Self - patient is the insured
--- OUTSIDE RECORDS SUMMARY | 2025-09-14 14:36 | XMS_ITS | Clinical Summary ---
Author Organization [address] [facility] Address [address] [place] [address] Phone Care Team Providers Care Architectural Engineering Teacher Name Role Phone Kira Craven MD Primary Care Provider [phone] Allergies Active Allergy Reactions Criticality Noted Date Comments Aripiprazole 12/27/2024 Amlodipine 12/27/2024 Bupropion Hcl 06/19/2025 Divalproex 06/19/2025 Haloperidol 12/27/2024 Lamotrigine 06/19/2025 [place] 12/27/2024 Modafinil 06/19/2025 Paroxetine Hcl 06/19/2025 Risperidone 06/19/2025 Quetiapine 12/27/2024 Sertraline 06/19/2025 Carbamazepine 12/27/2024 Topiramate 12/27/2024 Trazodone 12/27/2024 Ziprasidone Hcl 06/19/2025 Olanzapine 12/27/2024 Encounters Date Type Department Care Team Description 06/19/2025 1:30 PM EDT Office Visit [facility] [address] [place] [phone] Mt Shukla, DPM Dermatophytosis of nail [...] Upcoming Encounters Date Type Department Care Team ([facility] st Contact Info) Description 09/18/2025 10:30 AM EST Office Visit Orthopedic [facility] [address] [phone] Mt Shukla, DPM [address] [phone] Health Maintenance Due Date Last Done Comments [...] Group ID:[id number] Type:Not on file Address: [address] [facility] [place] [address] Care Teams Architectural Engineering Teacher Relationship Specialty Start Date End Date Kira Craven MD [address] [place] [address] [address] [facility] [place] [address] PCP - General Internal Medicine 11/08/24
--- NOTE | 2025-09-14 14:44 | A.OFFPC_ITS ---
Vital Signs 09/14/25 14:45 Height 5 ft 2 in Weight 193 lb 2 oz BMI 35.3 BP 114/78 Blood Pressure Location Lt brachial Position Sitting Pulse 73 Pulse Source Pulse Oximeter Temp 97.0 F Temp Source Temporal Artery Scan Pulse Oximetry (%) 95 Oxygen Delivery Method Room Air Intake Visit Reasons: follow up Allergies bupropion Allergy (Intermediate, Verified 09/14/25 14:47) Unknown haloperidol (HALOPERIDOL) Allergy (Intermediate, Verified 09/14/25 14:47) SWELLING paroxetine Allergy (Intermediate, Verified 09/14/25 14:47) Unknown risperidone Allergy (Intermediate, Verified 09/14/25 14:47) Unknown carbamazepine (From Tegretol) Allergy (Mild, Verified 09/14/25 14:47) RASH, TREMORS lithium ([place]) Allergy (Mild, Verified 09/14/25 14:47) RASH, CRAWLING OUT OF SKIN olanzapine (From Zyprexa) Allergy (Mild, Verified 09/14/25 14:47) RICHARD quetiapine (From Seroquel) Allergy (Mild, Verified 09/14/25 14:47) SWELLING WHOLE BODY, RICHARD topiramate (From TOPAMAX) Allergy (Unknown, Verified 09/14/25 14:47) RICHARD, SI trazodone (TRAZODONE) Allergy (Unknown, Verified 09/14/25 14:47) SYNCOPE aripiprazole (From ABILIFY) Adverse Reaction (Severe, Verified 09/14/25 14:47) EXTREME SI amlodipine Adverse Reaction (Intermediate, Verified 09/14/25 14:47) leg swelling empagliflozin (From Jardiance) Adverse Reaction (Intermediate, Verified 09/14/25 14:47) facial rash metformin Adverse Reaction (Intermediate, Verified 09/14/25 14:47) Diarrhea pioglitazone Adverse Reaction (Intermediate, Verified 09/14/25 14:47) leg swelling lamotrigine (From Lamictal) Adverse Reaction (Mild, Verified 09/14/25 14:47) RICHARD modafinil (From Provigil) Adverse Reaction (Mild, Verified 09/14/25 14:47) RICHARD prednisone Adverse Reaction (Verified 09/14/25 14:47) Agitated aripiprazole lauroxil Allergy (Intermediate, Uncoded 09/14/25 14:47) Unknown Valproate Allergy (Intermediate, Uncoded 09/14/25 14:47) Vomiting ALL ANTI DEPRESSENTS Allergy (Unknown, Uncoded 09/14/25 14:47) I GO MANIC All anti-depressants Allergy (Unknown, Uncoded 09/14/25 14:47) manic, rash From GEODON Allergy (Unknown, Uncoded 09/14/25 14:47) LETHARGY Sertraline Adverse Reaction (Intermediate, Uncoded 09/14/25 14:47) Anxiety ziprasidone Adverse Reaction (Intermediate, Uncoded 09/14/25 14:47) Unknown From WELLBUTRIN Adverse Reaction (Unknown, Uncoded 09/14/25 14:47) AGITATION, MAVIS Medication List - Last Reconciled 09/14/25 by Kira Craven MD albuterol sulfate 90 mcg/actuation 2 inhalations inhalation Q6-8H PRN atorvastatin 20 mg PO DAILY benztropine 0.5 mg PO TID blood pressure monitor (Blood Pressure Kit) As directed blood sugar diagnostic (FreeStyle Lite Strips) As directed check the BS QD blood-glucose meter (FreeStyle Lite Meter kit) As directed clonazepam 0.5 mg PO Q8H PRN cyclobenzaprine 5 mg PO TID PRN darifenacin ER 7.5 mg PO DAILY [Depends As directed] empagliflozin (Jardiance) 10 mg PO DAILY fluticasone propion-salmeterol 250-50 mcg/dose (Wixela Inhub) 1 inh inhalation BID gabapentin 400 mg PO BID lisinopril 40 mg PO DAILY loxapine succinate 5 mg PO BID loxapine succinate 10 mg PO BID meclizine 25 mg PO DAILY meloxicam 15 mg PO DAILY 90 days memantine 10 mg PO BID 90 days metronidazole 500 mg PO BID 7 days miconazole nitrate 2% (Zeasorb AF) 1 appl topical BID mirabegron ER 25 mg PO DAILY 90 days propranolol 20 mg PO TID tirzepatide 10 mg (0.5 mL) subcut QWEEK 4 weeks Tobacco use date assessed: 09/14/25 Fall risk assessment: No Falls in past year Last assessed Fall Risk: 09/14/25 Dental Screening Dental Screen Date: 09/14/25 Did you have a dental visit in the last 12 months?: Yes Did you have a dental problem in the last 6 months where you did not have access to dental care?: No Was dental information given to patient?: Patient has dentist HPI HPI Comments History of Present Illness Details History of Present Illness The patient is a 65-year-old female who presents for a follow-up visit for management of her chronic conditions. Her medical history is significant for obesity, type 2 diabetes mellitus, GERD, hypertension, hypercholesterolemia, peripheral vascular disease, and asthma. She has a history of endometrial intraepithelial neoplasia. Her last visit was in May, with blood work performed on May 26. At that time, her hemoglobin A1c was 7.1%, and her blood sugar was 122 mg/dL. Recent labs show her hemoglobin A1c has improved to 6.3%. Her medications for diabetes include Jardiance 10 mg daily and tirzepatide 10 mg weekly. For hypertension, she is on propranolol 20 mg three times a day and lisinopril 40 mg once a day. For hypercholesterolemia, she takes atorvastatin 20 mg once a day, and her last LDL was 50 mg/dL with triglycerides of 129 mg/dL. Her health maintenance screenings include a colonoscopy in 2016 and a bone density scan in 2018. She has been diagnosed with a cataract by her allied health instructor and reports having a hard time seeing at night. The patient reports intermittent chest pain but denies this occurs with exertion or is associated with shortness of breath. Health Maintenance An order for a bone density scan will be placed to assess for osteoporosis risk given her age and postmenopausal status; she will be contacted for scheduling. The patient will receive her influenza vaccination during this visit. She was reminded about the importance of diet and exercise. Social History - Activity: Patient reports she has been moving around. - Nutrition: Patient reports eating a lo t yesterday. Results - Labs: - Complete Blood Count: Normal, non-anem ic, with normal white blood cell and platelet counts. - Comprehensive Metabolic Panel: Normal electrolytes and good kidney function. - Blood Sugar (from May 26): 122 mg/dL. - Hemoglobin A1c (current): 6.3%. - Hemoglobin A1c (from May 26): 7.1%. - Liver function tests: Improved. - Lipid panel: LDL 50 mg/dL, triglycerid es 129 mg/dL. - Vitamin D: Mildly low. - Thyroid function tests: Normal. - Folic acid: Normal. - Urinalysis: Negative for proteinuria. [facility] Medical History Heart murmur Diabetic neuropathy Vaginal pain Cellulitis of right anterior lower leg Bruising Dissociative identity disorder Mild cognitive impairment Breast cancer screening by mammogram Back pain Cognitive impairment Hallucinations Richard Leg swelling Peripheral vascular disease Uterine prolapse GERD (gastroesophageal reflux disease) Polysubstance abuse Type 2 diabetes mellitus with hyperglycemia Asthma Fatty liver Obesity (BMI 30-39.9) Hypercholesterolemia Hypertension Chronic hepatitis C Diarrhea Dementia Surgical History History of hysterectomy S/P MONET-BSO H/O colonoscopy History of ectopic History of tonsillectomy History of cholecystectomy Family History Father Diabetes Hypertension Mother Hypertension Diabetes CVD (cardiovascular disease) CAD (coronary artery disease) Maternal Aunt Myocardial infarction Cancer Maternal Uncle Myocardial infarction Sister Ovarian cancer Sister History of breast cancer Social History Household Members: Significant Other Housing: House Do you presently have visiting nurse or other home services: Yes (RN vists once daily) Alcohol intake: never Comment: Non skid socks Patient Tobacco Use Status: Former Tobacco user Tobacco use type: Cigarette e-Cigarette/Vaping Use: Never Used Second Hand Smoke Exposure: Yes Substance Use Type: Caffiene Advance Directives Date on File: 01/27/24 service: No Current occupational status: disabled Sexual orientation: Straight/Heterosexual Cognitive needs: No Hearing needs: No Vision needs: Yes (Glasses) Female Reproductive History Menstrual Age of Menarche: 12 Questionnaire PHQ-9 Over the last 2 weeks, how often have you been bothered by any of the following problems? 1. Little interest or pleasure in doing things: several days 2. Feeling down, depressed, or hopeless: several days 3. Trouble falling or staying asleep, or sleeping too much: several days 4. Feeling tired or having little energy: several days 5. Poor appetite or overeating: several days 6. Feeling bad about yourself - or that you are a failure or have let yourself or your family down: several days 7. Trouble concentrating on things, such as reading the newspaper or watching television: several days 8. Moving or speaking so slowly that other people could have noticed. Or the opposite - being so fidgety or restless that you have been moving around a lot more than usual: not at all 9. Thoughts that you would be better off or of hurting yourself in some way: not at all Total score: 7 Depression Screening Interpretation: Positive Depression Screening Done: Yes Source: Developed by Drs. Rolando Argueta, Pippa Frances, Lars Alvarado and colleagues, with an educational bharat from [employer]. Thrive Questionnaire Date Thrive assessed: 05/17/25 I am a: Patient What is your living situation today?: I have a steady place to live Within the past 12 months, did the food you bought not last and you didn't have the money to get more?: Never true Within the past 12 months, did you worry whether your food would run out before you got money to buy more?: Sometimes True Do you have trouble paying for medicines?: No Do you have trouble getting transportation to medical appointments?: No Do you have trouble paying your heating and electricity bill?: I choose not to answer this question Do you have trouble taking care of your child, family member or friend?: I ch oose not to answer this question Do you have trouble with day-to-day activities such as bathing, preparing meals, shopping, managing finances, etc.?: Yes Are you currently unemployed and looking for a job?: No Are you interested in more education?: No Currently or been in a relationship where the following occur: No concerns reported THRIVE Score: 1 AUDIT C Alcohol Use Questionnaire (AUDIT-C) 1. How often do you have a drink containing alcohol?: Never 3. How often do you have six or more drinks on one occasion?: Never Total Score: 0 MARYANN-7 AMB Questionnaire MARYANN-7 Date MARYANN - 7 assessed: 10/05/24 Feeling nervous, anxious, or on edge: 2 = More than half the days Not being able to stop or control worryin = Several days Worrying too much about different things: 1 = Several days Trouble relaxin = Several days Being so restless that it is hard to sit still: 1 = Several days Becoming easily annoyed or irritable: 1 = Several days Feeling afraid as if something awful might happen: 1 = Several days Total MARYANN-7 score (0-4 normal; 5-9 mild; 10-14 moderate; 15-21 severe): 8 Source: Developed by Drs. Rolando Argueta, Pippa Frances, Lars Alvarado and colleagues, with an educational bharat from [employer]. Review of Systems Narrative Review of Systems - Eyes: Reports difficulty with vision at night. - Cardiovascular: Reports intermittent chest pain. Denies exertional chest h eaviness or shortness of breath. - Musculoskeletal: Reports chest pain that is reproducible with palpation. - Extremities: Denies leg swelling. Physical exam (Primary Care) Vital Signs: Last Vital Signs Temp 97.0 F 09/14/25 14:45 Pulse 73 09/14/25 14:45 BP 114/78 09/14/25 14:45 Pulse Ox 95 09/14/25 14:45 Oxygen Delivery Method Room Air 09/14/25 14:45 BMI result Body Mass Index 35.3 Tobacco/Smoking Status: Tobacco use Status Tobacco use date assessed 09/14/25 09/14/25 14:49 Patient Tobacco Use Status Former Tobacco user 09/14/25 14:49 Tobacco use type Cigarette 09/14/25 14:49 e-Cigarette/Vaping Use Never Used 09/14/25 14:49 PHQ-9: PHQ-9 Score PHQ-9: Total score 7 09/14/25 15:15 Depression Screening Interpretation: Positive Thrive Assessment: Date of Thrive Assessment Date Thrive assessed 05/17/25 09/14/25 14:49 Currently or been in a relationship where the following occur: No concerns reported Narrative Physical Exam - General: Well-appearing female. - Vital Signs: Blood pressure is within normal limits. - Chest Wall: Tenderness to palpation, which reproduces her reported pain. - Lungs: Auscultation was performed, no adventitious sounds noted. - Lower Extremities: No edema. Const General: alert; No acute distress Eyes Conjunctivae: conjunctivae normal Resp Auscultation: clear to auscultation bilaterally Cardio Rate: regular rate Rhythm: regular rhythm GI Inspection: Yes normal to inspection Extrem General: Yes normal to inspection and No edema Office Procedures Flu Questionnaire Does the patient have a severe egg allergy?: No Does the patient have severe life threatening allergies?: No Does the patient have a fever or illness today?: No Has the patient ever had Guillain-Lapaz Syndrome?: No Has the patient ever had any past reaction to a flu shot?: No Results AMB Hemoglobin A1c AMB Hemoglobin A1c 6.3 % Last Edit by Kimberly Serrano CMA on 09/14/25 14:53 Immunizations Fluarix [id number] (PF) 45 mcg (15 mcg x 3)/0.5 mL IM syringe Performing Provider: Kira Craven MD [facility] [place] Administered by: Kimberly Serrano CMA on 09/14/25 15:15 Dose Route Admin Location Dispensed Lot Number Expiration Date [place] Primary Care Sales Representative 0.5 mL IM Left Deltoid 0.5 mL [id number] 03/19/26 [id number] [employer] VIS Given Date VIS Provided VIS Publication Date 09/14/25 Single Vaccine 24 Eligibility Eligibility Date Funding Source Not [facility] Eligible 09/14/25 Private Results Reviewed Results Reviewed: Laboratory Last Values Hgb A1c (Clinic) 6.3 % (4.0-6.0) H 09/14/25 14:49 Coding Level of Care Code Est Pt Level 4 (67774) Add On Problem Visit Only Diagnoses Type 2 diabetes mellitus with hyperglycemia, without long-term current use of insulin E11.65 Diabetes mellitus continuous churn buttermaker insulin use: without halfway use Essential hypertension I10 Hypertension type: essential hypertension Hypercholesterolemia E78.00 Schizoaffective disorder, bipolar type F25.0 Gastroesophageal reflux disease without esophagitis K21.9 Esophagitis presence: without esophagitis Obesity (BMI 30-39.9) E66.9 Osteopenia M85.80 Assessment & Plan Assessment & Plan (1) Type 2 diabetes mellitus with hyperglycemia: Comment: Dr. Negro Code(s): E11.65 - Type 2 diabetes mellitus with hyperglycemia Category: Medical Qualifiers: Diabetes mellitus halfway insulin use: without continuous churn buttermaker use Qualified Code(s): E11.65 - Type 2 diabetes mellitus with hyperglycemia Plan: Decrease the amount of carbohydrate intake, pasta, bread, rice and potatoes are all sugar and that is aside from all the sweet stuff, remember that fruits are good but they are Sweet also. Hemoglobin A1c goal of less than 6.5 patient is on Jardiance 10 mg once a day tirzepatide 10 mg once a week (2) Hypertension: Code(s): I10 - Essential (primary) hypertension Category: Medical Qualifiers: Hypertension type: essential hypertension Qualified Code(s): I10 - Essential (primary) hypertension Plan: Continue with blood pressure medication. Decrease salt intake and exercise on propranolol 20 mg t.i.d. lisinopril 40 mg once a day (3) Hypercholesterolemia: Code(s): E78.00 - Pure hypercholesterolemia, unspecified Category: Medical Plan: Avoid fried foods, chicken skin, eggs, butter margarine, pastries and meat. Be it pork or beef they have a lot of cholesterol atorvastatin 20 mg once a day LDL goal of less than 100 and triglyceride of less than 150 (4) Schizoaffective disorder, bipolar type: Comment: [facility] Code(s): F25.0 - Schizoaffective disorder, bipolar type Category: Medical Plan: Continue with counseling and therapy (5) GERD (gastroesophageal reflux disease): Code(s): K21.9 - Gastro-esophageal reflux disease without esophagitis Category: Medical Qualifiers: Esophagitis presence: without esophagitis Qualified Code(s): K21.9 - Gastro-esophageal reflux disease without esophagitis Plan: Avoid the foods that causes that usually spicy foods, tomato products, juices, coffee, soda and foods that your sensitive to. After eating do not lie down, allow 3-4 hours before in lie down. And keep the head of bed above 30 degrees to avoid the acid from going up. (6) Obesity (BMI 30-39.9): Code(s): E66.9 - Obesity, unspecified Category: Medical Plan: Diet and exercise (7) Osteopenia: Code(s): M85.80 - Other specified disorders of bone density and structure, unspecified site Category: Medical Plan: Reminded about getting bone density Plan Plan Patient was informed and verbally consented to the use of an ambient scribe for clinic note documentation during this visit. 1. Type 2 Diabetes Mellitus The patient's hemoglobin A1c has shown significant improvement, decreasing from 7.1% in May to 6.3% currently, which meets the goal of less than 6.5%. She will continue her current regimen of Jardiance 10 mg once daily and tirzepatide 10 mg once weekly. Kidney function remains good with no proteinuria. 2. Hypertension The patient's blood pressure is well-controlled and looks good. She will cont inue her current medications, including propranolol 20 mg TID and lisinopril 40 mg daily. 3. Hypercholesterolemia The patient's cholesterol is very well-controlled, with an LDL of 50 mg/dL (goal <100 mg/dL) and triglycerides of 129 mg/dL (goal <150 mg/dL). She will continue taking atorvastatin 20 mg once daily. 4. Musculoskeletal Chest Pain The patient reports intermittent chest pain. Upon examination, the pain was reproducible with palpation, indicating a musculoskeletal etiology. The patient was reassured and advised to monitor for any changes, such as exertional heaviness or shortness of breath, and to report them if they occur. 5. Cataract The patient was recently diagnosed with a mature cataract by an allied health instructor and reports difficulty with night vision. She is scheduled for cataract surgery. Provided reassurance regarding the procedure. Discussion Notes I reviewed the patient's recent lab results from today and compared them to those from May 26. I expressed pleasure with her excellent progress, highlighting the improvement in her hemoglobin A1c to an impressive 6.3% from 7.1%, her well-controlled blood pressure, and her very good cholesterol levels, with an LDL of 50. I informed her that her kidney function is good and she is not spilling protein in her urine. I discussed the patient's intermittent chest pain, which she brought up at the end of the visit. After reproducing the pain with gentle pressure on her chest, I explained that this suggests the pain is musculoskeletal in origin rather than cardiac. I advised her to let me know if the character of the pain changes, particularly if it occurs with walking or is associated with heaviness or shortness of breath. Given her age and post-menopausal status, I explained the importance of assessing her bone health and informed her I am ordering a bone density scan. I also confirmed that she was due for an influenza vaccine, which she agreed to receive today. We briefly discussed her upcoming cataract surgery, and I reassured her that it is a quick and effective procedure. Patient Instructions - Continue taking all of your medications as prescribed for diabetes, high blood pressure, and high cholesterol. Your lab results show they are working very well. - Our office will be ordering a bone density scan for you. Someone will call you to schedule the appointment. - You will receive your flu shot today before you leave the office. - The chest pain you are feeling appears to be related to your muscles. If the pain changes, becomes worse when you walk, or if you feel heaviness or shortness of breath, please let us know immediately. - Continue to follow up with your eye doctor for your cataract surgery. - Continue to focus on diet and exercise as discussed. Orders: Orders AMB Hemoglobin A1c Today Z13.9 - Encounter for screening, unspecified XR DEXA axial skeleton Today M81.0 - Age-related osteoporosis without current pathological fracture Influenza [id number] Immunization Today Z23 - Encounter for immunization
[2025-09-14 14:45] VITALS: BP 114/78; PULSE 73; TEMP 36.1; O2SAT 95; BMI 35.3
== END 2025-09-14 15:17 | disposition home or self-care (01) ==
LOC: HO.HMCH 14:33
PROVIDERS: PCP Internal Medicine; Visit Provider Internal Medicine
DX: E11.65 Type 2 diabetes mellitus with hyperglycemia (principal); I10 Essential (primary) hypertension; E78.00 Pure hypercholesterolemia, unspecified; F25.0 Schizoaffective disorder, bipolar type; K21.9 Gastro-esophageal reflux disease without esophagitis; E66.9 Obesity, unspecified; M85.80 Other specified disorders of bone density and structure, unspecified site; Z23 Encounter for immunization; Z13.9 Encounter for screening, unspecified

== ENCOUNTER → 2025-09-14 14:32 | Outpatient (BNVA) | payer OTHER, SELFPAY | PROVIDERS: PCP Internal Medicine; Visit Provider Internal Medicine | DX: Z23 Encounter for immunization (principal); E11.65 Type 2 diabetes mellitus with hyperglycemia; I10 Essential (primary) hypertension; E78.00 Pure hypercholesterolemia, unspecified; F25.0 Schizoaffective disorder, bipolar type; K21.9 Gastro-esophageal reflux disease without esophagitis; E66.9 Obesity, unspecified; M85.80 Other specified disorders of bone density and structure, unspecified site; Z68.35 Body mass index [BMI] 35.0-35.9, adult | CPT/HCPCS: 83036; 90471; 90656; 96127; 99212 ==